=== PATIENT | male | born 1965 | race Caucasian/White ===

== ENCOUNTER 2016-05-28 20:04 | Emergency (ER) | payer MEDICARE, OTHER ==
[~2016-05-28 20:04] MED LIST: /PANT40TA PO; ASPI81CH12 PO; CALC600T21 PO; CARA1TAB2 PO; CLOTCRE3 TOP; DICY10CA13 PO; HYDR-3719 PO; LISI5TAB PO; LISIPOW PO; MIRA3350 PO; MIRT45TA PO; MIRT45TA3 PO; MS C15TA2 PO; MULTTAB4 PO; MULTTAB50 PO; NORCOTAB PO; OMEP40CA2 PO; OXYC-274 PO; OXYC1TAB57 PO; OXYC20TA2 PO; OXYC40TA12 PO; OXYCO5TA PO; OYSCTAB PO; PERC7.5T12 PO; PRIL20TA2 PO; PROT1TAB2 PO; REME45TA PO; SENN8.6T10 PO; SENO8.6T9 PO; SUCR1SS PO; SUCR1SUS PO; SUCR1TA PO; TAB-TAB PO; VALI5TAB PO; VITA10002 PO; VITA100072 PO; VITA1CAP2 PO; VITA200038 PO; VITACAP33 PO; VITMTA PO; WARF-21 PO; WARF-23 PO; XANA0.5T PO; ZINC50TA2 PO; ZOFR20TA PO; ZOFR4TAB3 PO
[2016-05-28] MEDS ORDERED: MORPHINE 2 MG/ML 1ML SYRINGE As Ordered ONE ×2 (20:57→22:03)
[2016-05-28] MEDS ORDERED: ONDANSETRON 4MG/2ML VIAL (J2405) As Ordered ONE (20:57)
[2016-05-28 21:06] LABS: BASO % 0.4 % (0.0-1.0); EOS # 0.1 K/mm3 (0.0-0.50); EOS % 1.1 % (0.0-3.0); LARGE UNSTAINED CELL # 0.1 K/mm3 (0.0-0.4); LARGE UNSTAINED CELL % 1.9 % (0.0-4.0); LYMPH # 1.4 K/mm3 (1.5-4.5); LYMPH % 19.8 % (24.0-44.0); MEAN CORPUSCULAR HEMOGLOBIN 30.8 pg (27.0-33.0); MEAN CORPUSCULAR VOLUME 93.2 fl (80.0-96.0); MONO # 0.4 K/mm3 (0.0-0.8); NEUTROPHILS % 71.9 % (36.0-66.0); PLATELET COUNT, AUTOMATED 318 k/mm3 (150-450); RED CELL DISTRIBUTION WIDTH 13.3 % (11.5-14.5)
--- NOTE | 2016-05-28 21:28 | REP ---
Clinical: Chest pain. Comparison: 09/09/2015. Findings: Mediastinum and cardiac silhouette normal. Lung hernandez are relatively clear without obvious consolidation, effusion, or pneumothorax. There is a very subtle area of opacity at the left lung base which may warrant correlation with auscultation and may reflect early infiltrate. Musculoskeletal structures appear intact. Impression: Cannot exclude very subtle early infiltrate at the left base. Correlation with auscultation may be warranted. Signed by Esdras Cruz MD 05/28/2016 09:20 P
[2016-05-28] MEDS ORDERED: oxyCODONE 5MG TAB As Ordered ONE (23:09)
[2016-05-28] MEDS ORDERED: GASTROGRAFIN SOLUTION 30ML (Q9963) As Ordered ONE (23:15)
[2016-05-28] MEDS ORDERED: ISOVUE-370 76% 100ML VIAL (Q9967) As Ordered ONE (23:52)
[2016-05-28 23:59] LABS: ALBUMIN 2.5 GM/DL (3.2-5.2); ALKALINE PHOSPHATASE 82 U/L (45-117); ALT/SGPT 13 U/L (12-78); ANION GAP 7 MEQ/L (8-16); AST/SGOT 11 U/L (15-37); BILIRUBIN,DIRECT 0.3 MG/DL (0.0-0.2); BILIRUBIN,TOTAL 0.5 MG/DL (0.2-1.0); BLOOD UREA NITROGEN 12 MG/DL (7-18); CALCIUM LEVEL 7.6 MG/DL (8.5-10.1); CARBON DIOXIDE LEVEL 28 MEQ/L (21-32); CHLORIDE LEVEL 106 MEQ/L (98-107); CREATININE FOR GFR 0.56 MG/DL (0.70-1.30); GLOMERULAR FILTRATION RATE > 60.0 (>56); GLUCOSE, FASTING 79 MG/DL (70-105); POTASSIUM SERUM 3.5 MEQ/L (3.5-5.1); SODIUM LEVEL 141 MEQ/L (136-145); TOTAL PROTEIN 6.7 GM/DL (6.4-8.2)
--- NOTE | 2016-05-29 01:20 | REPUSA ---
CLINICAL HISTORY: Pain. TECHNIQUE: Multiple axial CT images were obtained through the thorax with IV contrast material. COMMENTS: Bilateral basilar pulmonary consolidations. Findings are more prominent in the lower lobes. Groundglass densities in the lingula and right middle lobe. There are no pleural effusions. There is no evidence of hilar or mediastinal lymphadenopathy. The hea rt and great vessels are within normal limits. The visualized portions of the liver are of uniform attenuation without mass or defect. There is no i ntra or extrahepatic biliary ductal dilatation. The spleen is unremarkable. The visualized pancreas i s of normal contour and attenuation characteristics. There is no evidence of adrenal mass. The visual ized portions of the kidneys present no abnormalities. The bony structures are free of lytic or blastic lesions. Post contrast images demonstrate no evidence for abnormal enhancement. IMPRESSION: Bilateral multifocal airspace consolidations suggestive of bronchopneumonia. Thank you for your kind referral of this patient.
--- NOTE | 2016-05-29 01:50 | REPUSA ---
CLINICAL HISTORY: Abdominal pain. TECHNIQUE: Multiple axial, sagittal and coronal CT images were obtained through the abdomen and pelvi s after administration of oral and intravenous contrast material. COMMENTS: Changes from prior gastric bypass surgery. Percutaneous gastrostomy tube is in good position. Fluid filled dilated proximal small bowels. The liver is of uniform attenuation without mass or defect. There is no intra or extrahepatic biliary ductal dilatation. The spleen is normal. The gallbladder is surgically absent. The pancreas is of no rmal contour and attenuation characteristics. There is no evidence of adrenal mass. Both kidneys demonstrate prompt and equal nephrograms. The kidneys are normal in size, shape and conf iguration. There is no evidence of renal or ureteral mass. No renal or ureteral calculi are identifie d. There is no hydroureter or hydronephrosis. No evidence for appendicitis. There is no bowel wall thickening. There is no evidence of abdominal a scites or lymphadenopathy. There is no evidence of intrinsic or extrinsic bladder mass. There is no pelvic ascites or lymphadeno analisa. Images of the lung bases show no evidence of pleural or parenchymal mass. There are no pleural effusi ons. Bilateral basilar complex density to the lungs and consolidations. The bony structures are free of lytic or blastic lesions. Multilevel degenerative changes are seen in volving the thoracolumbar spine. Scattered calcifications are seen involving the aorta and major bran ches compatible with atherosclerosis. IMPRESSION: Prior gastric bypass surgery. Fluid-filled mildly dilated proximal small bowels. Probably ileus. No evidence of acute abdominal or pelvic pathology. Thank you for your kind referral of this patient.
[2016-05-29] MEDS ORDERED: AZITHROMYCIN INJ 500MG VIAL (J0456) As Ordered ONE (02:05)
[2016-05-29] MEDS ORDERED: MORPHINE 2 MG/ML 1ML SYRINGE As Ordered ONE (02:05)
[2016-05-29] MEDS ORDERED: oxyCODONE 5MG TAB As Ordered ONE (03:31)
--- NOTE | 2016-05-29 04:26 | EDDOCDS ---
Physician Documentation [facility] Name: Edwar Stokes Age: 51 yrs Sex: Male : 1965 Arrival Date: 05/28/2016 Time: 20:04 Bed OBSERVATION Private MD: Cedric Marrero Disposition: 05/29/16 04:00 Discharged to Home/Self Care. Impression: Pneumonia in diseases classified elsewhere, Noninfective gastroenteritis and colitis, unspecified. - Condition is Stable. - Prescriptions for Zithromax Z- Alfredito 250 mg Oral Tablet - take 1 tablet by ORAL route as directed for 5 days Day 1- take two tablets once. Day 2, 3, 4 , 5 take one tablet once daily.; 6 tablet. - Medication Reconciliation, Local Pharmacy Hours form. - Follow up: Cedric Marrero MD; When: Call to arrange an appointment; Reason: Recheck today's complaints. - Problem is an ongoing problem. - Symptoms have improved. Historical: - Allergies: No known drug Allergies; - Home Meds: 1. Carafate 100 mg/mL Oral susp 10 mL 4 times per day 2. cyanocobalamin (vitamin B-12) 1,000 mcg oral tab every 3 days 3. mirtazapine 45 mg Oral tab 1 tab bedtime 4. multivitamin Oral tab 1 tab daily 5. omeprazole 40 mg Oral cpDR 1 cap 2 times per day 6. oxycodone 20 mg Oral tab 1 tab every 4 hours 7. Oysco-500 500 mg calcium (1,250 mg) oral tab twice a day 8. senna 8.6 mg oral tab 1 tabs twice a day 9. Tab-A-Christian oral tab twice a day 10. vitamin D-3 1000 units daily 11. Xanax 0.5 mg Oral tab daily as needed 12. zinc gluconate 50 mg oral tab daily - PMHx: c diff; chronic abdominal pain; esophageal strictures; GERD; opiate abuse; opiate dependency; - PSHx: Appendectomy; right arm tendon; Gastric Bypass; G-Tube Insertion; back surgery; Hernia repair- Umbilical; Cholecystectomy; - Social history: Smoking status: Patient uses tobacco products, heavy tobacco smoker. No barriers to communication noted, The patient speaks fluent Nepali, Speaks appropriately for age. - Family history: Not pertinent. - : The pt / caregiver states he / she is not on anticoagulants. Home medication list is obtained from the patient. - Exposure Risk Screening:: None identified. Vital Signs: 05/28 20:05 BP 95 / 67; Pulse 85; Resp 16; Temp 97.1(O); Pulse Ox 98% ; Weight 55.34 kg / 122 lbs cmb (M); Height 5 ft. 11 in. (180.34 cm); Pain 10/10; 21:14 BP 92 / 62 (auto/); cf2 21:15 Pulse 68 MON; Pulse Ox 94% ; cf2 21:28 Pulse 68 MON; Pulse Ox 98% ; cf2 21:28 BP 96 / 70 (auto/); cf2 21:41 Pulse 94 MON; Pulse Ox 98% ; cf2 21:43 BP 104 / 58 (auto/); cf2 22:09 BP 99 / 61 (auto/); cf2 22:09 Pulse Ox 97% ; cf2 22:13 Pulse Ox 98% ; cf2 22:13 BP 94 / 64 (auto/); cf2 22:28 Pulse Ox 97% ; cf2 22:28 BP 92 / 65 (auto/); cf2 22:43 Pulse Ox 98% ; cf2 22:43 BP 92 / 62 (auto/); cf2 22:58 Pulse Ox 97% ; cf2 22:58 BP 89 / 63 (auto/); cf2 23:16 Pulse Ox 97% ; cf2 23:16 BP 96 / 66 (auto/); cf2 05/29 00:20 BP 113 / 52 (auto/); cf2 00:22 Pulse Ox 98% ; cf2 02:54 BP 97 / 62 (auto/); cf2 02:54 Pulse 64 MON; Pulse Ox 97% ; cf2 03:20 Pulse 60 MON; Pulse Ox 96% ; cf2 03:20 BP 101 / 70 (auto/); cf2 03:50 BP 94 / 68 (auto/); cf2 03:50 Pulse 60 MON; Pulse Ox 96% ; cf2 05/28 20:05 Body Mass Index 17.02 (55.34 kg, 180.34 cm) cmb MDM: 05/28 20:33 Derivatives Trader/Pulse Ox/q 30 min VS ordered. br1 20:33 IV Saline Lock ordered. br1 20:33 Rhythm Strip to chart ordered. br1 20:33 Undress patient appropriately for examination ordered. br1 20:36 ECG WITH READING ER PHYS+CARDIAG ordered. EDMS 20:36 Basic Metabolic Profile Ordered. EDMS 20:36 CBC with Diff Ordered. EDMS 20:36 Cardiac Injury Profile Ordered. EDMS 20:36 Troponin Ordered. EDMS 20:42 NS 0.9% 500 ml IV at bolus once ordered. br1 20:42 NS 0.9% 1000 ml IV at 150 mL/hr continuous ordered. br1 20:42 morphine 2 mg IVP once ordered. br1 20:43 Ondansetron 4 mg IVP once ordered. br1 20:44 Chest, 1 View Ordered. EDMS 20:45 GASTROINTESTINAL (GI) PANEL Ordered. EDMS 21:18 LIPASE Ordered. EDMS 21:18 LIVER PROFILE Ordered. EDMS 21:55 Recheck B/P ordered. br1 21:56 morphine 2 mg IVP once ordered. br1 22:02 [facility] Payment Agreement was scanned into [employer] and attached to record. jpb 22:06 Financial registration complete. gjb 22:47 CBC with Diff Reviewed. br1 22:47 Chest, 1 View Reviewed. br1 22:59 CT ABD & PELVIS: IV and Oral Contrast Ordered. EDMS 23:04 Repeat EKG (put time details section) ordered. br1 23:04 Redraw CIP &Troponin (put time in details section) ordered. br1 23:05 oxyCODONE 20 mg PO once ordered. br1 23:10 Redraw CIP &Troponin (put time in details section) complete. sew 23:10 Repeat EKG (put time details section) complete. sew 23:11 CARDIAC MARKER PANEL Ordered. EDMS 23:12 ECG WITH READING ER PHYS ordered. EDMS 23:19 CT Chest with contrast Ordered. EDMS 05/29 01:54 Basic Metabolic Profile Reviewed. cs11 01:54 Cardiac Injury Profile Reviewed. cs11 01:54 LIVER PROFILE Reviewed. cs11 01:54 Troponin Reviewed. cs11 01:54 LIPASE Reviewed. cs11 01:54 CT Chest with contrast Reviewed. cs11 01:55 morphine 2 mg IVP once ordered. cs11 01:55 azithromycin 500 mg IVPB once over 1 hrs; dilute in 250mL of D5W or NS ordered. cs11 03:49 CARDIAC MARKER PANEL Reviewed. cs11 03:49 CT ABD & PELVIS: IV and Oral Contrast Reviewed. cs11 03:54 oxyCODONE 20 mg PO once ordered. cf2 Administered Medications: 05/28 21:06 Drug: morphine 2 mg [morphine 2 mg/mL intravenous cartridge (1 mL)] Route: IVP; Site: cf2 left antecubital; 23:52 Follow up: Response: No significant change. cf2 21:06 Drug: Ondansetron 4 mg [ondansetron HCl 2 mg/mL intravenous solution (2 mL)] Route: cf2 IVP; Site: left antecubital; 23:51 Follow up: Response: No significant change. cf2 21:07 Drug: NS 0.9% 500 ml [sodium chloride 0.9 % intravenous solution] Route: IV; Rate: cf2 bolus; Site: left antecubital; 21:07 Drug: NS 0.9% 1000 ml [sodium chloride 0.9 % intravenous solution] Route: IV; Rate: 150 cf2 mL/hr; Site: left antecubital; 22:02 Drug: morphine 2 mg [morphine 2 mg/mL intravenous cartridge (1 mL)] Route: IVP; Site: cf2 left antecubital; 23:51 Follow up: Response: No significant change. cf2 23:10 Drug: oxyCODONE 20 mg [oxycodone 5 mg tablet (4 tabs)] Route: PO; cf2 23:51 Follow up: Response: No significant change. cf2 05/29 02:00 Drug: morphine 2 mg [morphine 2 mg/mL intravenous cartridge (1 mL)] Route: IVP; Site: cf2 left antecubital; 02:00 Drug: azithromycin 500 mg [azithromycin 500 mg intravenous solution] Route: IVPB; cf2 Infused Over: 1 hrs; Site: left antecubital; 03:54 Drug: oxyCODONE 20 mg [oxycodone 5 mg tablet (4 tabs)] Route: PO; cf2 Signatures: Dispatcher [employer] EDMS Juan Pablo Hitchcock MD MD br1 Rniku Jin Sarah sew Schiff, Craig, DO DO cs11 Aris Middleton RN RN jmb Beck, Gabriela gjb Familetti-Gonzalez, ChristinaRN RN cf2 The chart was reviewed and I authenticate all verbal orders and agree with the evaluation and treatment provided.Corrections: (The following items were deleted from the chart) 05/28 20:45 20:44 GASTROINTESTINAL (GI) PANEL+NIESHA ordered. EDMS EDMS 21:16 20:43 LIVER PROFILE+LAB ordered. EDMS EDMS 21:16 20:43 LIPASE+LAB ordered. EDMS EDMS 23:19 22:49 CT Chest without contrast+CT ordered. EDMS EDMS Attachments: 22:02 [facility] Payment Agreement [email or web address]
--- NOTE | 2016-05-29 04:26 | EDDOCDS ---
Nurse's Notes [facility] Name: Edwar Stokes Age: 51 yrs Sex: Male : 1965 Arrival Date: 05/28/2016 Time: 20:04 Bed OBSERVATION Private MD: Cedric Marrero Diagnosis: Pneumonia in diseases classified elsewhere;Noninfective gastroenteritis and colitis, unspecified Presentation: 05/28 20:11 Presenting complaint: Patient states: Patient reports that he has had diarrhea, jmb vomiting for one week. Called Dr. Delarosa in [place] whom told patient to report to ER. Patient reports having feeding tube. Adult Sepsis Screening: The patient does not have new or worsening altered mentation. Patient's respiratory rate is less than 22. Systolic blood pressure is greater than 100. Patient has a qSOFA score of 0- Negative Sepsis Screen. Suicide/Homicide risk assessment- the patient denies having any suicidal and/or homicidal ideations and does not present with any other emotional, behavioral or mental health complaints. Status: Patient is not a supervisor customer services or dependent. Transition of care: patient was not received from another setting of care. 20:11 Acuity: ANA Level 3 jmb 20:11 Method Of Arrival: Walkin/Carried/Asstd jmb 20:13 Presenting complaint: Patient states: Patient reports that pain radiates from stomach jmb to left chest wall and his left arm is numb. Triage Assessment: 20:13 General: Appears in no apparent distress. Pain: Location: abdomen Pain currently is 10 jmb out of 10 on a pain scale. HIV screening NA for this visit Offered previously. Neurological: Level of Consciousness is awake, alert, obeys commands, Oriented to person, place, time, Speech is normal, Facial symmetry appears normal, Facial symmetry: tongue is midline. Respiratory: Airway is patent Respiratory effort is even, unlabored, Respiratory pattern is regular, symmetrical. GI: Abdomen is non- distended. Derm: Skin is pink, warm & dry. Musculoskeletal: Range of motion intact in all extremities. Historical: - Allergies: No known drug Allergies; - Home Meds: 1. Carafate 100 mg/mL Oral susp 10 mL 4 times per day 2. cyanocobalamin (vitamin B-12) 1,000 mcg oral tab every 3 days 3. mirtazapine 45 mg Oral tab 1 tab bedtime 4. multivitamin Oral tab 1 tab daily 5. omeprazole 40 mg Oral cpDR 1 cap 2 times per day 6. oxycodone 20 mg Oral tab 1 tab every 4 hours 7. Oysco-500 500 mg calcium (1,250 mg) oral tab twice a day 8. senna 8.6 mg oral tab 1 tabs twice a day 9. Tab-A-Christian oral tab twice a day 10. vitamin D-3 1000 units daily 11. Xanax 0.5 mg Oral tab daily as needed 12. zinc gluconate 50 mg oral tab daily - PMHx: c diff; chronic abdominal pain; esophageal strictures; GERD; opiate abuse; opiate dependency; - PSHx: Appendectomy; right arm tendon; Gastric Bypass; G-Tube Insertion; back surgery; Hernia repair- Umbilical; Cholecystectomy; - Social history: Smoking status: Patient uses tobacco products, heavy tobacco smoker. No barriers to communication noted, The patient speaks fluent Czech, Speaks appropriately for age. - Family history: Not pertinent. - : The pt / caregiver states he / she is not on anticoagulants. Home medication list is obtained from the patient. - Exposure Risk Screening:: None identified. Screenin:08 Screening information is obtained from the patient. Fall risk: At risk due to gait cf2 disturbance. Assistance ADL's: requires no assistance with activities of daily living. Abuse/DV Screen: The patient / caregiver reports he/she is: not in a situation that causes fear, pain or injury. Nutritional screening: On G-tube feedings. Advance Directives: Further advance directive information is declined. home support is adequate. Assessment: 21:08 Adult Sepsis Screening: The patient does not have new or worsening altered mentation. cf2 Patient's respiratory rate is less than 22. Systolic blood pressure is greater than 100. Patient has a qSOFA score of 0- Negative Sepsis Screen. General: Appears cachectic, emaciated, malnourished, slender, Behavior is appropriate for age, cooperative, Denies fever, feeling ill, fatigue, chills. Pain: Denies pain. Neurological: No deficits noted. EENT: No deficits noted. Cardiovascular: No deficits noted. Respiratory: No deficits noted. GI: PEG tube Bowel sounds present X 4 quads. Abd is soft and non tender X 4 quads. : No deficits noted. Derm: No deficits noted. Musculoskeletal: No deficits noted. Injury Description: No known injury. 05/29 04:23 Reassessment: Patient appears in no apparent distress at this time. Patient states cf2 feeling better. Patient states symptoms have improved. Vital Signs: 05/28 20:05 BP 95 / 67; Pulse 85; Resp 16; Temp 97.1(O); Pulse Ox 98% ; Weight 55.34 kg (M); Height cmb 5 ft. 11 in. (180.34 cm); Pain 10/10; 21:14 BP 92 / 62 (auto/); cf2 21:15 Pulse 68 MON; Pulse Ox 94% ; cf2 21:28 Pulse 68 MON; Pulse Ox 98% ; cf2 21:28 BP 96 / 70 (auto/); cf2 21:41 Pulse 94 MON; Pulse Ox 98% ; cf2 21:43 BP 104 / 58 (auto/); cf2 22:09 BP 99 / 61 (auto/); cf2 22:09 Pulse Ox 97% ; cf2 22:13 Pulse Ox 98% ; cf2 22:13 BP 94 / 64 (auto/); cf2 22:28 Pulse Ox 97% ; cf2 22:28 BP 92 / 65 (auto/); cf2 22:43 Pulse Ox 98% ; cf2 22:43 BP 92 / 62 (auto/); cf2 22:58 Pulse Ox 97% ; cf2 22:58 BP 89 / 63 (auto/); cf2 23:16 Pulse Ox 97% ; cf2 23:16 BP 96 / 66 (auto/); cf2 05/29 00:20 BP 113 / 52 (auto/); cf2 00:22 Pulse Ox 98% ; cf2 02:54 BP 97 / 62 (auto/); cf2 02:54 Pulse 64 MON; Pulse Ox 97% ; cf2 03:20 Pulse 60 MON; Pulse Ox 96% ; cf2 03:20 BP 101 / 70 (auto/); cf2 03:50 BP 94 / 68 (auto/); cf2 03:50 Pulse 60 MON; Pulse Ox 96% ; cf2 05/28 20:05 Body Mass Index 17.02 (55.34 kg, 180.34 cm) cmb Vitals: 05/28 20:05 Log In Time: May 28, 2016 at 20:04. cmb ED Course: 20:05 Patient visited by Emi Garcia. cmb 20:05 Cedric Marrero MD is Private Physician. cmb 20:05 Patient moved to Waiting cmb 20:07 Patient moved to Pre RCE cmb 20:12 Triage Initiated jmb 20:15 Patient moved to PR2 / jmb 20:29 Juan Pablo Hitchcock MD is Attending Physician. br1 20:29 Patient moved to 12 jmb 20:38 Simona Adrian RN is Primary Nurse. cf2 20:38 Patient visited by Simona Adrian,KRISTOFER. cf2 20:41 Patient visited by Juan Pablo Hitchcock MD. br1 20:48 Patient visited by Deborah Salazar PCA. cln 20:48 EKG done. (by ED staff). Reviewed by Juan Pablo Hitchcock MD. cln 21:06 Patient visited by Simona Adrian RN. cf2 21:08 Patient visited by Simona Adrian RN. cf2 21:08 The patient / caregiver is instructed regarding the plan of care and ED course. Patient cf2 has correct armband on for positive identification. Placed in gown. Bed in low position. Call light in reach. Side rails up X 1. Side rails up X2. manager child on. Pulse ox on. NIBP on. Property :Personal belongings accompany Pt. Door closed. Noise minimized. Visitors limited. Lights dimmed. Moved to private room. Verbal reassurance given. Warm blanket given. Pillow given. Head of bed elevated. Diet: Patient is NPO. 21:08 Inserted saline lock: 20 gauge in right antecubital area and blood collected. The cf2 patient tolerated the procedure well. No procedures done that require assistance. 21:18 Patient visited by Ara Villafana, Robot Designer. jlm 21:18 manager child on. Pulse ox on. NIBP on. jlm 21:34 Chest, 1 View Returned. EDMS 21:48 Patient visited by Simona Adrian,KRISTOFER. cf2 21:48 LIVER PROFILE Sent. cf2 21:48 LIPASE Sent. cf2 22:02 [facility] [place] [facility] Payment Agreement was scanned into [employer] and attached to record. jpb 22:26 Patient visited by Simona Adrian RN. cf2 23:07 Attending Physician role handed off by Juan Pablo Hitchcock MD cs11 23:07 Robert Nina DO is Attending Physician. cs11 23:21 Patient visited by Barbara Noble RN. af2 23:21 Labs drawn. (by ED staff). Sent per order to lab. af2 23:41 Patient visited by Ara Villafana, Robot Designer. jlm 23:44 Patient moved to OBSERVATION cs11 05/29 00:24 Patient visited by Simona Adrian RN. cf2 00:26 Patient visited by Simona Adrian RN. cf2 01:33 CT Chest with contrast Returned. EDMS 01:41 Patient visited by Simona Adrian RN. cf2 02:09 CT ABD & PELVIS: IV and Oral Contrast Returned. EDMS 02:42 Patient visited by Bharat Fabian. jp4 02:42 EKG done. (by ED staff). Reviewed by Robert Nina DO. jp4 03:53 Patient visited by Simona Adrian RN. cf2 03:59 Cedric Marrero MD is Referral Physician. cs11 04:23 Patient visited by Simona Adrian RN. cf2 Administered Medications: 05/28 21:06 Drug: morphine 2 mg [morphine 2 mg/mL intravenous cartridge (1 mL)] Route: IVP; Site: cf2 left antecubital; 23:52 Follow up: Response: No significant change. cf2 21:06 Drug: Ondansetron 4 mg [ondansetron HCl 2 mg/mL intravenous solution (2 mL)] Route: cf2 IVP; Site: left antecubital; 23:51 Follow up: Response: No significant change. cf2 21:07 Drug: NS 0.9% 500 ml [sodium chloride 0.9 % intravenous solution] Route: IV; Rate: cf2 bolus; Site: left antecubital; 21:07 Drug: NS 0.9% 1000 ml [sodium chloride 0.9 % intravenous solution] Route: IV; Rate: 150 cf2 mL/hr; Site: left antecubital; 22:02 Drug: morphine 2 mg [morphine 2 mg/mL intravenous cartridge (1 mL)] Route: IVP; Site: cf2 left antecubital; 23:51 Follow up: Response: No significant change. cf2 23:10 Drug: oxyCODONE 20 mg [oxycodone 5 mg tablet (4 tabs)] Route: PO; cf2 23:51 Follow up: Response: No significant change. cf2 05/29 02:00 Drug: morphine 2 mg [morphine 2 mg/mL intravenous cartridge (1 mL)] Route: IVP; Site: cf2 left antecubital; 02:00 Drug: azithromycin 500 mg [azithromycin 500 mg intravenous solution] Route: IVPB; cf2 Infused Over: 1 hrs; Site: left antecubital; 03:54 Drug: oxyCODONE 20 mg [oxycodone 5 mg tablet (4 tabs)] Route: PO; cf2 Order Results: Lab Order: Basic Metabolic Profile; SPEC'M 05/28/16 23:17 Test: GLUCOSE, FASTING; Value: 79; Range: 70-105; Units: MG/DL; Status: F Test: BLOOD UREA NITROGEN; Value: 12; Range: 7-18; Units: MG/DL; Status: F Test: CREATININE FOR GFR; Value: 0.56; Range: 0.70-1.30; Abnormal: Below low normal; Units: MG/DL; Status: F Test: GLOMERULAR FILTRATION RATE; Value: > 60.0; Range: >56; Status: F Test: SODIUM LEVEL; Value: 141; Range: 136-145; Units: MEQ/L; Status: F Test: POTASSIUM SERUM; Value: 3.5; Range: 3.5-5.1; Units: MEQ/L; Status: F Test: CHLORIDE LEVEL; Value: 106; Range: 98-107; Units: MEQ/L; Status: F Test: CARBON DIOXIDE LEVEL; Value: 28; Range: 21-32; Units: MEQ/L; Status: F Test: ANION GAP; Value: 7; Range: 8-16; Abnormal: Below low normal; Units: MEQ/L; Status: F Test: CALCIUM LEVEL; Value: 7.6; Range: 8.5-10.1; Abnormal: Below low normal; Units: MG/DL; Status: F Test Note: ; Units are mL/min/1.73 m2 Chronic Kidney Disease Staging per NKF: Stage I & II GFR >=60 Normal to Mildly Decreased Stage III GFR 30-59 Moderately Decreased Stage IV GFR 15-29 Severely Decreased Stage V GFR <15 Very Little GFR Left ESRD GFR <15 on ADMITTING COUNSELOR Lab Order: CBC with Diff; SPEC'M 05/28/16 20:53 Test: WHITE BLOOD COUNT; Value: 7.0; Range: 4.0-10.0; Units: K/mm3; Status: F Test: RED BLOOD COUNT; Value: 3.57; Range: 4.30-6.10; Abnormal: Below low normal; Units: M/mm3; Status: F Test: HEMOGLOBIN; Value: 11.0; Range: 14.0-18.0; Abnormal: Below low normal; Units: g/dl; Status: F Test: HEMATOCRIT; Value: 33.2; Range: 42.0-52.0; Abnormal: Below low normal; Units: %; Status: F Test: MEAN CORPUSCULAR VOLUME; Value: 93.2; Range: 80.0-96.0; Units: fl; Status: F Test: MEAN CORPUSCULAR HEMOGLOBIN; Value: 30.8; Range: 27.0-33.0; Units: pg; Status: F Test: MEAN CORPUSCULAR HGB CONC; Value: 33.0; Range: 32.0-36.5; Units: g/dl; Status: F Test: RED CELL DISTRIBUTION WIDTH; Value: 13.3; Range: 11.5-14.5; Units: %; Status: F Test: PLATELET COUNT, AUTOMATED; Value: 318; Range: 150-450; Units: k/mm3; Status: F Test: NEUTROPHILS %; Value: 71.9; Range: 36.0-66.0; Abnormal: Above high normal; Units: %; Status: F Test: LYMPH %; Value: 19.8; Range: 24.0-44.0; Abnormal: Below low normal; Units: %; Status: F Test: MONO %; Value: 5.0; Range: 0.0-5.0; Units: %; Status: F Test: EOS %; Value: 1.1; Range: 0.0-3.0; Units: %; Status: F Test: BASO %; Value: 0.4; Range: 0.0-1.0; Units: %; Status: F Test: LARGE UNSTAINED CELL %; Value: 1.9; Range: 0.0-4.0; Units: %; Status: F Test: NEUTROPHILS #; Value: 5.0; Range: 1.8-7.7; Units: K/mm3; Status: F Test: LYMPH #; Value: 1.4; Range: 1.5-4.5; Abnormal: Below low normal; Units: K/mm3; Status: F Test: MONO #; Value: 0.4; Range: 0.0-0.8; Units: K/mm3; Status: F Test: EOS #; Value: 0.1; Range: 0.0-0.50; Units: K/mm3; Status: F Test: BASO #; Value: 0.0; Range: 0.0-0.2; Units: K/mm3; Status: F Test: LARGE UNSTAINED CELL #; Value: 0.1; Range: 0.0-0.4; Units: K/mm3; Status: F Lab Order: Cardiac Injury Profile; SPEC'M 05/28/16 23:17 Test: CPK CREATINE PHOSPHOKINASE; Value: 17; Range: 39-308; Abnormal: Below low normal; Units: U/L; Status: F Test: CK-MB VALUE MASS; Value: 1.0; Range: 0.0-3.6; Units: NG/ML; Status: F Test: MB/CK RELATIVE INDEX; Value: 5.88; Range: < OR =4; Abnormal: Above high normal; Status: F Test Note: ; DIAGNOSIS CRITERIA MMB ng/ml Relative Index (RI) NON-AMI < or = 5 N/A PIPER ZONE > 5 < or = 4 AMI > 5 > 4 Lab Order: Troponin; SPEC'M 05/28/16 23:17 Test: TROPONIN I; Value: < 0.02; Range: < 0.10; Units: NG/ML; Status: F Test Note: ; Troponin I Reference Interval for [employer] LOCI: 99th Percentile= 0.00-0.045 ng/ml Risk Stratification: <= 0.10 ng/ml Decreased Risk for Adverse Clinical Events. 0.10-1.50 ng/ml Increased Risk for Adverse Clinical Events. Evaluation of additional criterion and/or repeat testing in 2-6 hours is suggested to rule out myocardial damage. >= 1.50 ng/ml Indicative of Myocardial Injury. Lab Order: LIPASE; SPEC'M 05/28/16 23:17 Test: LIPASE; Value: 103; Range: 73-393; Units: U/L; Status: F Lab Order: LIVER PROFILE; SPEC'M 05/28/16 23:17 Test: AST/SGOT; Value: 11; Range: 15-37; Abnormal: Below low normal; Units: U/L; Status: F Test: ALT/SGPT; Value: 13; Range: 12-78; Units: U/L; Status: F Test: ALKALINE PHOSPHATASE; Value: 82; Range: 45-117; Units: U/L; Status: F Test: BILIRUBIN,TOTAL; Value: 0.5; Range: 0.2-1.0; Units: MG/DL; Status: F Test: BILIRUBIN,DIRECT; Value: 0.3; Range: 0.0-0.2; Abnormal: Above high normal; Units: MG/DL; Status: F Test: TOTAL PROTEIN; Value: 6.7; Range: 6.4-8.2; Units: GM/DL; Status: F Test: ALBUMIN; Value: 2.5; Range: 3.2-5.2; Abnormal: Below low normal; Units: GM/DL; Status: F Test: ALBUMIN/GLOBULIN RATIO; Value: 0.60; Range: 1.00-1.93; Abnormal: Below low normal; Status: F Lab Order: CARDIAC MARKER PANEL; SPEC'M 05/29/16 02:53 Test: CPK CREATINE PHOSPHOKINASE; Value: 20; Range: 39-308; Abnormal: Below low normal; Units: U/L; Status: F Test: CK-MB VALUE MASS; Value: 1.0; Range: 0.0-3.6; Units: NG/ML; Status: F Test: MB/CK RELATIVE INDEX; Value: 5.00; Range: < OR =4; Abnormal: Above high normal; Status: F Test: TROPONIN I; Value: < 0.02; Range: < 0.10; Units: NG/ML; Status: F Test Note: ; DIAGNOSIS CRITERIA MMB ng/ml Relative Index (RI) NON-AMI < or = 5 N/A PIPER ZONE > 5 < or = 4 AMI > 5 > 4 Radiology Order: Chest, 1 View Test: Chest, 1 View REASON FOR EXAMINATION: Chest Pain; Clinical: Chest pain.; ; Comparison: 09/09/2015.; ; Findings:; Mediastinum and cardiac silhouette normal. Lung hernandez are relatively clear; without obvious consolidation, effusion, or pneumothorax. There is a very subtle; area of opacity at the left lung base which may warrant correlation with; auscultation and may reflect early infiltrate. Musculoskeletal structures appear; intact.; ; Impression:; Cannot exclude very subtle early infiltrate at the left base. Correlation with; auscultation may be warranted.; ; ; Signed by; Esdras Cruz MD 05/28/2016 09:20 P; Radiology Order: CT ABD & PELVIS: IV and Oral Contrast Test: CT ABD & PELVIS: IV and Oral Contrast REASON FOR EXAMINATION: Abdomen Pain; ; CLINICAL HISTORY: Abdominal pain.; TECHNIQUE: Multiple axial, sagittal and coronal CT images were obtained through the abdomen and pelvi; s after administration of oral and intravenous contrast material.; COMMENTS:; Changes from prior gastric bypass surgery.; Percutaneous gastrostomy tube is in good position.; Fluid filled dilated proximal small bowels.; The liver is of uniform attenuation without mass or defect. There is no intra or extrahepatic biliary; ductal dilatation. The spleen is normal. The gallbladder is surgically absent. The pancreas is of no; rmal contour and attenuation characteristics. There is no evidence of adrenal mass.; Both kidneys demonstrate prompt and equal nephrograms. The kidneys are normal in size, shape and conf; iguration. There is no evidence of renal or ureteral mass. No renal or ureteral calculi are identifie; d. There is no hydroureter or hydronephrosis.; No evidence for appendicitis. There is no bowel wall thickening. There is no evidence of abdominal a; scites or lymphadenopathy.; There is no evidence of intrinsic or extrinsic bladder mass. There is no pelvic ascites or lymphadeno; analisa.; Images of the lung bases show no evidence of pleural or parenchymal mass. There are no pleural effusi; ons. Bilateral basilar complex density to the lungs and consolidations.; The bony structures are free of lytic or blastic lesions. Multilevel degenerative changes are seen in; volving the thoracolumbar spine. Scattered calcifications are seen involving the aorta and major bran; ches compatible with atherosclerosis.; IMPRESSION:; Prior gastric bypass surgery.; Fluid-filled mildly dilated proximal small bowels. Probably ileus.; No evidence of acute abdominal or pelvic pathology.; Thank you for your kind referral of this patient.; ; Radiology Order: CT Chest with contrast Test: CT Chest with contrast REASON FOR EXAMINATION: Chest Pain; ; CLINICAL HISTORY: Pain.; TECHNIQUE: Multiple axial CT images were obtained through the thorax with IV contrast material.; COMMENTS:; Bilateral basilar pulmonary consolidations.; Findings are more prominent in the lower lobes. Groundglass densities in the lingula and right middle; lobe.; There are no pleural effusions. There is no evidence of hilar or mediastinal lymphadenopathy. The hea; rt and great vessels are within normal limits.; The visualized portions of the liver are of uniform attenuation without mass or defect. There is no i; ntra or extrahepatic biliary ductal dilatation. The spleen is unremarkable. The visualized pancreas i; s of normal contour and attenuation characteristics. There is no evidence of adrenal mass. The visual; ized portions of the kidneys present no abnormalities.; The bony structures are free of lytic or blastic lesions.; Post contrast images demonstrate no evidence for abnormal enhancement.; IMPRESSION:; Bilateral multifocal airspace consolidations suggestive of bronchopneumonia.; Thank you for your kind referral of this patient.; ; Outcome: 04:00 [facility] 04:24 The following High Risk Discharge criteria are identified: None. Discharged to home cf2 ambulatory, in taxi. Condition: stable Condition: improved. Discharge instructions given to patient, Instructed on discharge instructions, follow up and referral plans. medication usage, Demonstrated understanding of instructions, medications, Prescriptions given X 1. CT Study completed. 04:25 Discharge Assessment: Patient awake, alert and oriented x 3. No cognitive and/or cf2 functional deficits noted. Patient verbalized understanding of disposition instructions. Patient awake and alert. Oriented to person, place and time. patient administered narcotics - yes. 04:25 Patient left the ED. cf2 Signatures: Dispatcher [employer] EDMS Juan Pablo Hitchcock MD MD br1 Rinku Jin Chelsea cmRobert Alarcon, DO cs11 Aris Middleton,RN RN brauliob Bharat Fabian jp4 Ara Villafana, Robot Designer Unit abrahamm Barbara Noble,RN RN af2 Marie, Deborah, SOURCING ASSOCIATE SOURCING ASSOCIATE cln Simona Adrian,RN RN cf2 MTDD
--- NOTE | 2016-05-29 11:32 | ECGEPIP ---
Stationary ECG Study [facility] - ED Test Date: 2016-05-28 Pat Name: GRAHAM COLEMAN Department: Room: - Gender: M Licensed Clinician: florin : 1965 Requested By: BERE APARICIO Order Number: [id number] Reading MD: Kathryn Berg Measurements Intervals [place] Rate: 75 P: 81 TX: 192 QRS: -7 QRSD: 112 T: 59 QT: 375 QTc: 419 Interpretive Statements SINUS RHYTHM LOW QRS VOLTAGE IN EXTREMITY LEADS INTRAVENTRICULAR CONDUCTION DELAY SIMILAR 02/23/16 Electronically Signed On 05-29-2016 11:31:57 EST by Kathryn Berg
--- NOTE | 2016-05-29 12:07 | ECGEPIP ---
Stationary ECG Study [facility] - ED Test Date: 2016-05-29 Pat Name: GRAHAM COLEMAN Department: Room: - Gender: M Reverberatory Skimmer: giselle : 1965 Requested By: BERE APARICIO Order Number: [id number] Reading MD: Kathryn Berg Measurements Intervals [place] Rate: 62 P: 69 [place]: 199 QRS: -14 QRSD: 94 T: 58 QT: 399 QTc: 405 Interpretive Statements SINUS RHYTHM LOW VOLTAGE LIMB DECREASED RATE 05/28/16 Electronically Signed On 05-29-2016 12:06:37 EST by Kathryn Berg
--- NOTE | 2016-05-31 05:26 | EDDOCDS ---
Physician Documentation [facility] Name: Edwar Stokes Age: 51 yrs Sex: Male : 1965 Arrival Date: 05/28/2016 Time: 20:04 Bed OBSERVATION Private MD: Cedric Marrero Disposition: 05/29/16 04:00 Discharged to Home/Self Care. Impression: Pneumonia in diseases classified elsewhere, Noninfective gastroenteritis and colitis, unspecified. - Condition is Stable. - Prescriptions for Zithromax Z- Alfredito 250 mg Oral Tablet - take 1 tablet by ORAL route as directed for 5 days Day 1- take two tablets once. Day 2, 3, 4 , 5 take one tablet once daily.; 6 tablet. - Medication Reconciliation, Local Pharmacy Hours form. - Follow up: Cedric Marrero MD; When: Call to arrange an appointment; Reason: Recheck today's complaints. - Problem is an ongoing problem. - Symptoms have improved. Historical: - Allergies: No known drug Allergies; - Home Meds: 1. Carafate 100 mg/mL Oral susp 10 mL 4 times per day 2. cyanocobalamin (vitamin B-12) 1,000 mcg oral tab every 3 days 3. mirtazapine 45 mg Oral tab 1 tab bedtime 4. multivitamin Oral tab 1 tab daily 5. omeprazole 40 mg Oral cpDR 1 cap 2 times per day 6. oxycodone 20 mg Oral tab 1 tab every 4 hours 7. Oysco-500 500 mg calcium (1,250 mg) oral tab twice a day 8. senna 8.6 mg oral tab 1 tabs twice a day 9. Tab-A-Christian oral tab twice a day 10. vitamin D-3 1000 units daily 11. Xanax 0.5 mg Oral tab daily as needed 12. zinc gluconate 50 mg oral tab daily - PMHx: c diff; chronic abdominal pain; esophageal strictures; GERD; opiate abuse; opiate dependency; - PSHx: Appendectomy; right arm tendon; Gastric Bypass; G-Tube Insertion; back surgery; Hernia repair- Umbilical; Cholecystectomy; - Social history: Smoking status: Patient uses tobacco products, heavy tobacco smoker. No barriers to communication noted, The patient speaks fluent Nepali, Speaks appropriately for age. - Family history: Not pertinent. - : The pt / caregiver states he / she is not on anticoagulants. Home medication list is obtained from the patient. - Exposure Risk Screening:: None identified. Vital Signs: 05/28 20:05 BP 95 / 67; Pulse 85; Resp 16; Temp 97.1(O); Pulse Ox 98% ; Weight 55.34 kg / 122 lbs cmb (M); Height 5 ft. 11 in. (180.34 cm); Pain 10/10; 21:14 BP 92 / 62 (auto/); cf2 21:15 Pulse 68 MON; Pulse Ox 94% ; cf2 21:28 Pulse 68 MON; Pulse Ox 98% ; cf2 21:28 BP 96 / 70 (auto/); cf2 21:41 Pulse 94 MON; Pulse Ox 98% ; cf2 21:43 BP 104 / 58 (auto/); cf2 22:09 BP 99 / 61 (auto/); cf2 22:09 Pulse Ox 97% ; cf2 22:13 Pulse Ox 98% ; cf2 22:13 BP 94 / 64 (auto/); cf2 22:28 Pulse Ox 97% ; cf2 22:28 BP 92 / 65 (auto/); cf2 22:43 Pulse Ox 98% ; cf2 22:43 BP 92 / 62 (auto/); cf2 22:58 Pulse Ox 97% ; cf2 22:58 BP 89 / 63 (auto/); cf2 23:16 Pulse Ox 97% ; cf2 23:16 BP 96 / 66 (auto/); cf2 05/29 00:20 BP 113 / 52 (auto/); cf2 00:22 Pulse Ox 98% ; cf2 02:54 BP 97 / 62 (auto/); cf2 02:54 Pulse 64 MON; Pulse Ox 97% ; cf2 03:20 Pulse 60 MON; Pulse Ox 96% ; cf2 03:20 BP 101 / 70 (auto/); cf2 03:50 BP 94 / 68 (auto/); cf2 03:50 Pulse 60 MON; Pulse Ox 96% ; cf2 05/28 20:05 Body Mass Index 17.02 (55.34 kg, 180.34 cm) cmb MDM: 05/28 20:33 [employer]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 br1 20:33 IV Saline Lock ordered. br1 20:33 Rhythm Strip to chart ordered. br1 20:33 Undress patient appropriately for examination ordered. br1 20:36 ECG WITH READING ER PHYS+CARDIAG ordered. EDMS 20:36 Basic Metabolic Profile Ordered. EDMS 20:36 CBC with Diff Ordered. EDMS 20:36 Cardiac Injury Profile Ordered. EDMS 20:36 Troponin Ordered. EDMS 20:42 NS 0.9% 500 ml IV at bolus once ordered. br1 20:42 NS 0.9% 1000 ml IV at 150 mL/hr continuous ordered. br1 20:42 morphine 2 mg IVP once ordered. br1 20:43 Ondansetron 4 mg IVP once ordered. br1 20:44 Chest, 1 View Ordered. EDMS 20:45 GASTROINTESTINAL (GI) PANEL Ordered. EDMS 21:18 LIPASE Ordered. EDMS 21:18 LIVER PROFILE Ordered. EDMS 21:55 Recheck B/P ordered. br1 21:56 morphine 2 mg IVP once ordered. br1 22:02 [facility] Payment Agreement was scanned into [employer] and attached to record. jpb 22:06 Financial registration complete. gjb 22:47 CBC with Diff Reviewed. br1 22:47 Chest, 1 View Reviewed. br1 22:59 CT ABD & PELVIS: IV and Oral Contrast Ordered. EDMS 23:04 Repeat EKG (put time details section) ordered. br1 23:04 Redraw CIP &Troponin (put time in details section) ordered. br1 23:05 oxyCODONE 20 mg PO once ordered. br1 23:10 Redraw CIP &Troponin (put time in details section) complete. sew 23:10 Repeat EKG (put time details section) complete. sew 23:11 CARDIAC MARKER PANEL Ordered. EDMS 23:12 ECG WITH READING ER PHYS ordered. EDMS 23:19 CT Chest with contrast Ordered. EDMS 05/29 01:54 Basic Metabolic Profile Reviewed. cs11 01:54 Cardiac Injury Profile Reviewed. cs11 01:54 LIVER PROFILE Reviewed. cs11 01:54 Troponin Reviewed. cs11 01:54 LIPASE Reviewed. cs11 01:54 CT Chest with contrast Reviewed. cs11 01:55 morphine 2 mg IVP once ordered. cs11 01:55 azithromycin 500 mg IVPB once over 1 hrs; dilute in 250mL of D5W or NS ordered. cs11 03:49 CARDIAC MARKER PANEL Reviewed. cs11 03:49 CT ABD & PELVIS: IV and Oral Contrast Reviewed. cs11 03:54 oxyCODONE 20 mg PO once ordered. cf2 05/30 08:48 T-Sheet-- Draft Copy was scanned into [employer] and attached to record. gb Administered Medications: 05/28 21:06 Drug: morphine 2 mg [morphine 2 mg/mL intravenous cartridge (1 mL)] Route: IVP; Site: cf2 left antecubital; 23:52 Follow up: Response: No significant change. cf2 21:06 Drug: Ondansetron 4 mg [ondansetron HCl 2 mg/mL intravenous solution (2 mL)] Route: cf2 IVP; Site: left antecubital; 23:51 Follow up: Response: No significant change. cf2 21:07 Drug: NS 0.9% 500 ml [sodium chloride 0.9 % intravenous solution] Route: IV; Rate: cf2 bolus; Site: left antecubital; 21:07 Drug: NS 0.9% 1000 ml [sodium chloride 0.9 % intravenous solution] Route: IV; Rate: 150 cf2 mL/hr; Site: left antecubital; 22:02 Drug: morphine 2 mg [morphine 2 mg/mL intravenous cartridge (1 mL)] Route: IVP; Site: cf2 left antecubital; 23:51 Follow up: Response: No significant change. cf2 23:10 Drug: oxyCODONE 20 mg [oxycodone 5 mg tablet (4 tabs)] Route: PO; cf2 23:51 Follow up: Response: No significant change. cf2 05/29 02:00 Drug: morphine 2 mg [morphine 2 mg/mL intravenous cartridge (1 mL)] Route: IVP; Site: cf2 left antecubital; 02:00 Drug: azithromycin 500 mg [azithromycin 500 mg intravenous solution] Route: IVPB; cf2 Infused Over: 1 hrs; Site: left antecubital; 03:54 Drug: oxyCODONE 20 mg [oxycodone 5 mg tablet (4 tabs)] Route: PO; cf2 Signatures: Dispatcher [employer] EDMS Anika Ayala, Reg Reg gb Juan Pablo Hitchcock MD MD br1 Rinku Jin Sarah sew Schiff, Craig, DO DO cs11 Aris Middleton RN RN Amara Vegas ChristinaRN RN cf2 The chart was reviewed and I authenticate all verbal orders and agree with the evaluation and treatment provided.Corrections: (The following items were deleted from the chart) 05/28 20:45 20:44 GASTROINTESTINAL (GI) PANEL+NIESHA ordered. EDMS EDMS 21:16 20:43 LIVER PROFILE+LAB ordered. EDMS EDMS 21:16 20:43 LIPASE+LAB ordered. EDMS EDMS 23:19 22:49 CT Chest without contrast+CT ordered. EDMS EDMS Attachments: 22:02 [facility] Payment Agreement jpb 05/30 08:48 T-Sheet-- Draft Copy gb Chart Complete MTDD
--- NOTE | 2016-05-31 05:27 | EDDOCDS ---
Nurse's Notes [facility] Name: Edwar Stokes Age: 51 yrs Sex: Male : 1965 Arrival Date: 05/28/2016 Time: 20:04 Bed OBSERVATION Private MD: Cedric Marrero Diagnosis: Pneumonia in diseases classified elsewhere;Noninfective gastroenteritis and colitis, unspecified Presentation: 05/28 20:11 Presenting complaint: Patient states: Patient reports that he has had diarrhea, jmb vomiting for one week. Called Dr. Delarosa in [place] whom told patient to report to ER. Patient reports having feeding tube. Adult Sepsis Screening: The patient does not have new or worsening altered mentation. Patient's respiratory rate is less than 22. Systolic blood pressure is greater than 100. Patient has a qSOFA score of 0- Negative Sepsis Screen. Suicide/Homicide risk assessment- the patient denies having any suicidal and/or homicidal ideations and does not present with any other emotional, behavioral or mental health complaints. Status: Patient is not a accounting advisory services manager or dependent. Transition of care: patient was not received from another setting of care. 20:11 Acuity: ANA Level 3 jmb 20:11 Method Of Arrival: Walkin/Carried/Asstd jmb 20:13 Presenting complaint: Patient states: Patient reports that pain radiates from stomach jmb to left chest wall and his left arm is numb. Triage Assessment: 20:13 General: Appears in no apparent distress. Pain: Location: abdomen Pain currently is 10 jmb out of 10 on a pain scale. HIV screening NA for this visit Offered previously. Neurological: Level of Consciousness is awake, alert, obeys commands, Oriented to person, place, time, Speech is normal, Facial symmetry appears normal, Facial symmetry: tongue is midline. Respiratory: Airway is patent Respiratory effort is even, unlabored, Respiratory pattern is regular, symmetrical. GI: Abdomen is non- distended. Derm: Skin is pink, warm & dry. Musculoskeletal: Range of motion intact in all extremities. Historical: - Allergies: No known drug Allergies; - Home Meds: 1. Carafate 100 mg/mL Oral susp 10 mL 4 times per day 2. cyanocobalamin (vitamin B-12) 1,000 mcg oral tab every 3 days 3. mirtazapine 45 mg Oral tab 1 tab bedtime 4. multivitamin Oral tab 1 tab daily 5. omeprazole 40 mg Oral cpDR 1 cap 2 times per day 6. oxycodone 20 mg Oral tab 1 tab every 4 hours 7. Oysco-500 500 mg calcium (1,250 mg) oral tab twice a day 8. senna 8.6 mg oral tab 1 tabs twice a day 9. Tab-A-Christian oral tab twice a day 10. vitamin D-3 1000 units daily 11. Xanax 0.5 mg Oral tab daily as needed 12. zinc gluconate 50 mg oral tab daily - PMHx: c diff; chronic abdominal pain; esophageal strictures; GERD; opiate abuse; opiate dependency; - PSHx: Appendectomy; right arm tendon; Gastric Bypass; G-Tube Insertion; back surgery; Hernia repair- Umbilical; Cholecystectomy; - Social history: Smoking status: Patient uses tobacco products, heavy tobacco smoker. No barriers to communication noted, The patient speaks fluent Maltese, Speaks appropriately for age. - Family history: Not pertinent. - : The pt / caregiver states he / she is not on anticoagulants. Home medication list is obtained from the patient. - Exposure Risk Screening:: None identified. Screenin:08 Screening information is obtained from the patient. Fall risk: At risk due to gait cf2 disturbance. Assistance ADL's: requires no assistance with activities of daily living. Abuse/DV Screen: The patient / caregiver reports he/she is: not in a situation that causes fear, pain or injury. Nutritional screening: On G-tube feedings. Advance Directives: Further advance directive information is declined. home support is adequate. Assessment: 21:08 Adult Sepsis Screening: The patient does not have new or worsening altered mentation. cf2 Patient's respiratory rate is less than 22. Systolic blood pressure is greater than 100. Patient has a qSOFA score of 0- Negative Sepsis Screen. General: Appears cachectic, emaciated, malnourished, slender, Behavior is appropriate for age, cooperative, Denies fever, feeling ill, fatigue, chills. Pain: Denies pain. Neurological: No deficits noted. EENT: No deficits noted. Cardiovascular: No deficits noted. Respiratory: No deficits noted. GI: PEG tube Bowel sounds present X 4 quads. Abd is soft and non tender X 4 quads. : No deficits noted. Derm: No deficits noted. Musculoskeletal: No deficits noted. Injury Description: No known injury. 05/29 04:23 Reassessment: Patient appears in no apparent distress at this time. Patient states cf2 feeling better. Patient states symptoms have improved. Vital Signs: 05/28 20:05 BP 95 / 67; Pulse 85; Resp 16; Temp 97.1(O); Pulse Ox 98% ; Weight 55.34 kg (M); Height cmb 5 ft. 11 in. (180.34 cm); Pain 10/10; 21:14 BP 92 / 62 (auto/); cf2 21:15 Pulse 68 MON; Pulse Ox 94% ; cf2 21:28 Pulse 68 MON; Pulse Ox 98% ; cf2 21:28 BP 96 / 70 (auto/); cf2 21:41 Pulse 94 MON; Pulse Ox 98% ; cf2 21:43 BP 104 / 58 (auto/); cf2 22:09 BP 99 / 61 (auto/); cf2 22:09 Pulse Ox 97% ; cf2 22:13 Pulse Ox 98% ; cf2 22:13 BP 94 / 64 (auto/); cf2 22:28 Pulse Ox 97% ; cf2 22:28 BP 92 / 65 (auto/); cf2 22:43 Pulse Ox 98% ; cf2 22:43 BP 92 / 62 (auto/); cf2 22:58 Pulse Ox 97% ; cf2 22:58 BP 89 / 63 (auto/); cf2 23:16 Pulse Ox 97% ; cf2 23:16 BP 96 / 66 (auto/); cf2 05/29 00:20 BP 113 / 52 (auto/); cf2 00:22 Pulse Ox 98% ; cf2 02:54 BP 97 / 62 (auto/); cf2 02:54 Pulse 64 MON; Pulse Ox 97% ; cf2 03:20 Pulse 60 MON; Pulse Ox 96% ; cf2 03:20 BP 101 / 70 (auto/); cf2 03:50 BP 94 / 68 (auto/); cf2 03:50 Pulse 60 MON; Pulse Ox 96% ; cf2 05/28 20:05 Body Mass Index 17.02 (55.34 kg, 180.34 cm) cmb Vitals: 05/28 20:05 Log In Time: May 28, 2016 at 20:04. cmb ED Course: 20:05 Patient visited by Emi Garcia. cmb 20:05 Cedric Marrero MD is Private Physician. cmb 20:05 Patient moved to Waiting cmb 20:07 Patient moved to Pre RCE cmb 20:12 Triage Initiated jmb 20:15 Patient moved to PR2 / jmb 20:29 Juan Pablo Hitchcock MD is Attending Physician. br1 20:29 Patient moved to 12 jmb 20:38 Simona Adrian RN is Primary Nurse. cf2 20:38 Patient visited by Simona Adrian,KRISTOFER. cf2 20:41 Patient visited by Juan Pablo Hitchcock MD. br1 20:48 Patient visited by Deborah Salazar PCA. cln 20:48 EKG done. (by ED staff). Reviewed by Juan Pablo Hitchcock MD. cln 21:06 Patient visited by Simona Adrian RN. cf2 21:08 Patient visited by Simona Adrian RN. cf2 21:08 The patient / caregiver is instructed regarding the plan of care and ED course. Patient cf2 has correct armband on for positive identification. Placed in gown. Bed in low position. Call light in reach. Side rails up X 1. Side rails up X2. scale balancer on. Pulse ox on. NIBP on. Property :Personal belongings accompany Pt. Door closed. Noise minimized. Visitors limited. Lights dimmed. Moved to private room. Verbal reassurance given. Warm blanket given. Pillow given. Head of bed elevated. Diet: Patient is NPO. 21:08 Inserted saline lock: 20 gauge in right antecubital area and blood collected. The cf2 patient tolerated the procedure well. No procedures done that require assistance. 21:18 Patient visited by Ara Villafana, Expediter Clerk. jlm 21:18 scale balancer on. Pulse ox on. NIBP on. jlm 21:34 Chest, 1 View Returned. EDMS 21:48 Patient visited by Simona Adrian,KRISTOFER. cf2 21:48 LIVER PROFILE Sent. cf2 21:48 LIPASE Sent. cf2 22:02 [facility] [place] Payment Agreement was scanned into [employer] and attached to record. jpb 22:26 Patient visited by Simona Adrian RN. cf2 23:07 Attending Physician role handed off by Juan Pablo Hitchcock MD cs11 23:07 Bere Aparicio DO is Attending Physician. cs11 23:21 Patient visited by Barbara Noble RN. af2 23:21 Labs drawn. (by ED staff). Sent per order to lab. af2 23:41 Patient visited by Ara Villafana, Expediter Clerk. jlm 23:44 Patient moved to OBSERVATION cs11 05/29 00:24 Patient visited by Simona Adrian RN. cf2 00:26 Patient visited by Simona Adrian RN. cf2 01:33 CT Chest with contrast Returned. EDMS 01:41 Patient visited by Simoan Adrian RN. cf2 02:09 CT ABD & PELVIS: IV and Oral Contrast Returned. EDMS 02:42 Patient visited by Bharat Fabian. jp4 02:42 EKG done. (by ED staff). Reviewed by Bere Aparicio DO. jp4 03:53 Patient visited by Simona Adrian RN. cf2 03:59 Cedric Marrero MD is Referral Physician. cs11 04:23 Patient visited by Simona Adrian RN. cf2 11:47 EKG-ADULT Returned. EDMS 12:30 ECG WITH READING ER PHYS Returned. EDMS 01 08:48 T-Sheet-- Draft Copy was scanned into [employer] and attached to record. gb Administered Medications: 05/28 21:06 Drug: morphine 2 mg [morphine 2 mg/mL intravenous cartridge (1 mL)] Route: IVP; Site: cf2 left antecubital; 23:52 Follow up: Response: No significant change. cf2 21:06 Drug: Ondansetron 4 mg [ondansetron HCl 2 mg/mL intravenous solution (2 mL)] Route: cf2 IVP; Site: left antecubital; 23:51 Follow up: Response: No significant change. cf2 21:07 Drug: NS 0.9% 500 ml [sodium chloride 0.9 % intravenous solution] Route: IV; Rate: cf2 bolus; Site: left antecubital; 21:07 Drug: NS 0.9% 1000 ml [sodium chloride 0.9 % intravenous solution] Route: IV; Rate: 150 cf2 mL/hr; Site: left antecubital; 22:02 Drug: morphine 2 mg [morphine 2 mg/mL intravenous cartridge (1 mL)] Route: IVP; Site: cf2 left antecubital; 23:51 Follow up: Response: No significant change. cf2 23:10 Drug: oxyCODONE 20 mg [oxycodone 5 mg tablet (4 tabs)] Route: PO; cf2 23:51 Follow up: Response: No significant change. cf2 05/29 02:00 Drug: morphine 2 mg [morphine 2 mg/mL intravenous cartridge (1 mL)] Route: IVP; Site: cf2 left antecubital; 02:00 Drug: azithromycin 500 mg [azithromycin 500 mg intravenous solution] Route: IVPB; cf2 Infused Over: 1 hrs; Site: left antecubital; 03:54 Drug: oxyCODONE 20 mg [oxycodone 5 mg tablet (4 tabs)] Route: PO; cf2 Order Results: Lab Order: Basic Metabolic Profile; SPEC'M 05/28/16 23:17 Test: GLUCOSE, FASTING; Value: 79; Range: 70-105; Units: MG/DL; Status: F Test: BLOOD UREA NITROGEN; Value: 12; Range: 7-18; Units: MG/DL; Status: F Test: CREATININE FOR GFR; Value: 0.56; Range: 0.70-1.30; Abnormal: Below low normal; Units: MG/DL; Status: F Test: GLOMERULAR FILTRATION RATE; Value: > 60.0; Range: >56; Status: F Test: SODIUM LEVEL; Value: 141; Range: 136-145; Units: MEQ/L; Status: F Test: POTASSIUM SERUM; Value: 3.5; Range: 3.5-5.1; Units: MEQ/L; Status: F Test: CHLORIDE LEVEL; Value: 106; Range: 98-107; Units: MEQ/L; Status: F Test: CARBON DIOXIDE LEVEL; Value: 28; Range: 21-32; Units: MEQ/L; Status: F Test: ANION GAP; Value: 7; Range: 8-16; Abnormal: Below low normal; Units: MEQ/L; Status: F Test: CALCIUM LEVEL; Value: 7.6; Range: 8.5-10.1; Abnormal: Below low normal; Units: MG/DL; Status: F Test Note: ; Units are mL/min/1.73 m2 Chronic Kidney Disease Staging per NKF: Stage I & II GFR >=60 Normal to Mildly Decreased Stage III GFR 30-59 Moderately Decreased Stage IV GFR 15-29 Severely Decreased Stage V GFR <15 Very Little GFR Left ESRD GFR <15 on GAS SHOVEL OPERATOR Lab Order: CBC with Diff; SPEC'M 05/28/16 20:53 Test: WHITE BLOOD COUNT; Value: 7.0; Range: 4.0-10.0; Units: K/mm3; Status: F Test: RED BLOOD COUNT; Value: 3.57; Range: 4.30-6.10; Abnormal: Below low normal; Units: M/mm3; Status: F Test: HEMOGLOBIN; Value: 11.0; Range: 14.0-18.0; Abnormal: Below low normal; Units: g/dl; Status: F Test: HEMATOCRIT; Value: 33.2; Range: 42.0-52.0; Abnormal: Below low normal; Units: %; Status: F Test: MEAN CORPUSCULAR VOLUME; Value: 93.2; Range: 80.0-96.0; Units: fl; Status: F Test: MEAN CORPUSCULAR HEMOGLOBIN; Value: 30.8; Range: 27.0-33.0; Units: pg; Status: F Test: MEAN CORPUSCULAR HGB CONC; Value: 33.0; Range: 32.0-36.5; Units: g/dl; Status: F Test: RED CELL DISTRIBUTION WIDTH; Value: 13.3; Range: 11.5-14.5; Units: %; Status: F Test: PLATELET COUNT, AUTOMATED; Value: 318; Range: 150-450; Units: k/mm3; Status: F Test: NEUTROPHILS %; Value: 71.9; Range: 36.0-66.0; Abnormal: Above high normal; Units: %; Status: F Test: LYMPH %; Value: 19.8; Range: 24.0-44.0; Abnormal: Below low normal; Units: %; Status: F Test: MONO %; Value: 5.0; Range: 0.0-5.0; Units: %; Status: F Test: EOS %; Value: 1.1; Range: 0.0-3.0; Units: %; Status: F Test: BASO %; Value: 0.4; Range: 0.0-1.0; Units: %; Status: F Test: LARGE UNSTAINED CELL %; Value: 1.9; Range: 0.0-4.0; Units: %; Status: F Test: NEUTROPHILS #; Value: 5.0; Range: 1.8-7.7; Units: K/mm3; Status: F Test: LYMPH #; Value: 1.4; Range: 1.5-4.5; Abnormal: Below low normal; Units: K/mm3; Status: F Test: MONO #; Value: 0.4; Range: 0.0-0.8; Units: K/mm3; Status: F Test: EOS #; Value: 0.1; Range: 0.0-0.50; Units: K/mm3; Status: F Test: BASO #; Value: 0.0; Range: 0.0-0.2; Units: K/mm3; Status: F Test: LARGE UNSTAINED CELL #; Value: 0.1; Range: 0.0-0.4; Units: K/mm3; Status: F Lab Order: Cardiac Injury Profile; SPEC'M 05/28/16 23:17 Test: CPK CREATINE PHOSPHOKINASE; Value: 17; Range: 39-308; Abnormal: Below low normal; Units: U/L; Status: F Test: CK-MB VALUE MASS; Value: 1.0; Range: 0.0-3.6; Units: NG/ML; Status: F Test: MB/CK RELATIVE INDEX; Value: 5.88; Range: < OR =4; Abnormal: Above high normal; Status: F Test Note: ; DIAGNOSIS CRITERIA MMB ng/ml Relative Index (RI) NON-AMI < or = 5 N/A PIPER ZONE > 5 < or = 4 AMI > 5 > 4 Lab Order: Troponin; SPEC'M 05/28/16 23:17 Test: TROPONIN I; Value: < 0.02; Range: < 0.10; Units: NG/ML; Status: F Test Note: ; Troponin I Reference Interval for [employer] LOCI: 99th Percentile= 0.00-0.045 ng/ml Risk Stratification: <= 0.10 ng/ml Decreased Risk for Adverse Clinical Events. 0.10-1.50 ng/ml Increased Risk for Adverse Clinical Events. Evaluation of additional criterion and/or repeat testing in 2-6 hours is suggested to rule out myocardial damage. >= 1.50 ng/ml Indicative of Myocardial Injury. Lab Order: LIPASE; SPEC'M 05/28/16 23:17 Test: LIPASE; Value: 103; Range: 73-393; Units: U/L; Status: F Lab Order: LIVER PROFILE; SPEC'M 05/28/16 23:17 Test: AST/SGOT; Value: 11; Range: 15-37; Abnormal: Below low normal; Units: U/L; Status: F Test: ALT/SGPT; Value: 13; Range: 12-78; Units: U/L; Status: F Test: ALKALINE PHOSPHATASE; Value: 82; Range: 45-117; Units: U/L; Status: F Test: BILIRUBIN,TOTAL; Value: 0.5; Range: 0.2-1.0; Units: MG/DL; Status: F Test: BILIRUBIN,DIRECT; Value: 0.3; Range: 0.0-0.2; Abnormal: Above high normal; Units: MG/DL; Status: F Test: TOTAL PROTEIN; Value: 6.7; Range: 6.4-8.2; Units: GM/DL; Status: F Test: ALBUMIN; Value: 2.5; Range: 3.2-5.2; Abnormal: Below low normal; Units: GM/DL; Status: F Test: ALBUMIN/GLOBULIN RATIO; Value: 0.60; Range: 1.00-1.93; Abnormal: Below low normal; Status: F Lab Order: CARDIAC MARKER PANEL; SPEC' 05/29/16 02:53 Test: CPK CREATINE PHOSPHOKINASE; Value: 20; Range: 39-308; Abnormal: Below low normal; Units: U/L; Status: F Test: CK-MB VALUE MASS; Value: 1.0; Range: 0.0-3.6; Units: NG/ML; Status: F Test: MB/CK RELATIVE INDEX; Value: 5.00; Range: < OR =4; Abnormal: Above high normal; Status: F Test: TROPONIN I; Value: < 0.02; Range: < 0.10; Units: NG/ML; Status: F Test Note: ; DIAGNOSIS CRITERIA MMB ng/ml Relative Index (RI) NON-AMI < or = 5 N/A PIPER ZONE > 5 < or = 4 AMI > 5 > 4 Radiology Order: EKG-ADULT Test: EKG-ADULT REASON FOR EXAMINATION: Chest Pain; Stationary ECG Study; [facility] - ED; ; Test Date: 2016-05-28; Pat Name: EDWAR STOKES Department:; Room: -; Gender: M Hearing And Speech Assistant: cn; : 1965 Requested By: BERE APARICIO; Order Number: [id number] Reading MD: Kathryn Berg; Measurements; Intervals [place]; Rate: 75 P: 81; MT: 192 QRS: -7; QRSD: 112 T: 59; QT: 375; QTc: 419; Interpretive Statements; SINUS RHYTHM; LOW QRS VOLTAGE IN EXTREMITY LEADS; INTRAVENTRICULAR CONDUCTION DELAY; SIMILAR 02/23/16; Electronically Signed On 05-29-2016 11:31:57 EST by Kathryn Berg; Radiology Order: Chest, 1 View Test: Chest, 1 View REASON FOR EXAMINATION: Chest Pain; Clinical: Chest pain.; ; Comparison: 09/09/2015.; ; Findings:; Mediastinum and cardiac silhouette normal. Lung hernandez are relatively clear; without obvious consolidation, effusion, or pneumothorax. There is a very subtle; area of opacity at the left lung base which may warrant correlation with; auscultation and may reflect early infiltrate. Musculoskeletal structures appear; intact.; ; Impression:; Cannot exclude very subtle early infiltrate at the left base. Correlation with; auscultation may be warranted.; ; ; Signed by; Esdras Cruz MD 05/28/2016 09:20 P; Radiology Order: CT ABD & PELVIS: IV and Oral Contrast Test: CT ABD & PELVIS: IV and Oral Contrast REASON FOR EXAMINATION: Abdomen Pain; ; CLINICAL HISTORY: Abdominal pain.; TECHNIQUE: Multiple axial, sagittal and coronal CT images were obtained through the abdomen and pelvi; s after administration of oral and intravenous contrast material.; COMMENTS:; Changes from prior gastric bypass surgery.; Percutaneous gastrostomy tube is in good position.; Fluid filled dilated proximal small bowels.; The liver is of uniform attenuation without mass or defect. There is no intra or extrahepatic biliary; ductal dilatation. The spleen is normal. The gallbladder is surgically absent. The pancreas is of no; rmal contour and attenuation characteristics. There is no evidence of adrenal mass.; Both kidneys demonstrate prompt and equal nephrograms. The kidneys are normal in size, shape and conf; iguration. There is no evidence of renal or ureteral mass. No renal or ureteral calculi are identifie; d. There is no hydroureter or hydronephrosis.; No evidence for appendicitis. There is no bowel wall thickening. There is no evidence of abdominal a; scites or lymphadenopathy.; There is no evidence of intrinsic or extrinsic bladder mass. There is no pelvic ascites or lymphadeno; analisa.; Images of the lung bases show no evidence of pleural or parenchymal mass. There are no pleural effusi; ons. Bilateral basilar complex density to the lungs and consolidations.; The bony structures are free of lytic or blastic lesions. Multilevel degenerative changes are seen in; volving the thoracolumbar spine. Scattered calcifications are seen involving the aorta and major bran; ches compatible with atherosclerosis.; IMPRESSION:; Prior gastric bypass surgery.; Fluid-filled mildly dilated proximal small bowels. Probably ileus.; No evidence of acute abdominal or pelvic pathology.; Thank you for your kind referral of this patient.; ; Radiology Order: ECG WITH READING ER PHYS Test: ECG WITH READING ER PHYS REASON FOR EXAMINATION: REPEAT; Stationary ECG Study; [facility] - ED; ; Test Date: 2016-05-29; Pat Name: EDWAR STOKES Department:; Room: -; Gender: M Hearing And Speech Assistant: giselle; : 1965 Requested By: BERE APARICIO; Order Number: [id number] Reading MD: Kathryn Berg; Measurements; Intervals [place]; Rate: 62 P: 69; MT: 199 QRS: -14; QRSD: 94 T: 58; QT: 399; QTc: 405; Interpretive Statements; SINUS RHYTHM; LOW VOLTAGE LIMB; DECREASED RATE 05/28/16; Electronically Signed On 05-29-2016 12:06:37 EST by Kathryn Berg; Radiology Order: CT Chest with contrast Test: CT Chest with contrast REASON FOR EXAMINATION: Chest Pain; ; CLINICAL HISTORY: Pain.; TECHNIQUE: Multiple axial CT images were obtained through the thorax with IV contrast material.; COMMENTS:; Bilateral basilar pulmonary consolidations.; Findings are more prominent in the lower lobes. Groundglass densities in the lingula and right middle; lobe.; There are no pleural effusions. There is no evidence of hilar or mediastinal lymphadenopathy. The hea; rt and great vessels are within normal limits.; The visualized portions of the liver are of uniform attenuation without mass or defect. There is no i; ntra or extrahepatic biliary ductal dilatation. The spleen is unremarkable. The visualized pancreas i; s of normal contour and attenuation characteristics. There is no evidence of adrenal mass. The visual; ized portions of the kidneys present no abnormalities.; The bony structures are free of lytic or blastic lesions.; Post contrast images demonstrate no evidence for abnormal enhancement.; IMPRESSION:; Bilateral multifocal airspace consolidations suggestive of bronchopneumonia.; Thank you for your kind referral of this patient.; ; Outcome: 04:00 Discharge ordered by Provider. cs11 04:24 The following High Risk Discharge criteria are identified: None. Discharged to home cf2 ambulatory, in taxi. Condition: stable Condition: improved. Discharge instructions given to patient, Instructed on discharge instructions, follow up and referral plans. medication usage, Demonstrated understanding of instructions, medications, Prescriptions given X 1. CT Study completed. 04:25 Discharge Assessment: Patient awake, alert and oriented x 3. No cognitive and/or cf2 functional deficits noted. Patient verbalized understanding of disposition instructions. Patient awake and alert. Oriented to person, place and time. patient administered narcotics - yes. 04:25 Patient left the ED. cf2 Signatures: Dispatcher [employer] EDMS Anika Ayala, Juan Pablo Olson MD MD br1 Rinku Jin jpEmi Cooley Craig, DO cs11 Aris Middleton,RN RN Bharat Mcguire jp4 Ara Villafana, Expediter Clerk Unit Barbara Altman RN RN af2 Deborah Salazar, PAID INTERN PAID INTERN cln Simona Adrian,RN RN cf2 Chart Complete MTDD
--- NOTE | 2016-06-03 09:21 | EDDOCDS ---
Physician Documentation [facility] Name: Edwar Stokes Age: 51 yrs Sex: Male : 1965 Arrival Date: 05/28/2016 Time: 20:04 Bed OBSERVATION Private MD: Cedric Marrero Disposition: 05/29/16 04:00 Discharged to Home/Self Care. Impression: Pneumonia in diseases classified elsewhere, Noninfective gastroenteritis and colitis, unspecified. - Condition is Stable. - Prescriptions for Zithromax Z- Alfredito 250 mg Oral Tablet - take 1 tablet by ORAL route as directed for 5 days Day 1- take two tablets once. Day 2, 3, 4 , 5 take one tablet once daily.; 6 tablet. - Medication Reconciliation, Local Pharmacy Hours form. - Follow up: Cedric Marrero MD; When: Call to arrange an appointment; Reason: Recheck today's complaints. - Problem is an ongoing problem. - Symptoms have improved. Historical: - Allergies: No known drug Allergies; - Home Meds: 1. Carafate 100 mg/mL Oral susp 10 mL 4 times per day 2. cyanocobalamin (vitamin B-12) 1,000 mcg oral tab every 3 days 3. mirtazapine 45 mg Oral tab 1 tab bedtime 4. multivitamin Oral tab 1 tab daily 5. omeprazole 40 mg Oral cpDR 1 cap 2 times per day 6. oxycodone 20 mg Oral tab 1 tab every 4 hours 7. Oysco-500 500 mg calcium (1,250 mg) oral tab twice a day 8. senna 8.6 mg oral tab 1 tabs twice a day 9. Tab-A-Christian oral tab twice a day 10. vitamin D-3 1000 units daily 11. Xanax 0.5 mg Oral tab daily as needed 12. zinc gluconate 50 mg oral tab daily - PMHx: c diff; chronic abdominal pain; esophageal strictures; GERD; opiate abuse; opiate dependency; - PSHx: Appendectomy; right arm tendon; Gastric Bypass; G-Tube Insertion; back surgery; Hernia repair- Umbilical; Cholecystectomy; - Social history: Smoking status: Patient uses tobacco products, heavy tobacco smoker. No barriers to communication noted, The patient speaks fluent Chinese, Speaks appropriately for age. - Family history: Not pertinent. - : The pt / caregiver states he / she is not on anticoagulants. Home medication list is obtained from the patient. - Exposure Risk Screening:: None identified. Vital Signs: 05/28 20:05 BP 95 / 67; Pulse 85; Resp 16; Temp 97.1(O); Pulse Ox 98% ; Weight 55.34 kg / 122 lbs cmb (M); Height 5 ft. 11 in. (180.34 cm); Pain 10/10; 21:14 BP 92 / 62 (auto/); cf2 21:15 Pulse 68 MON; Pulse Ox 94% ; cf2 21:28 Pulse 68 MON; Pulse Ox 98% ; cf2 21:28 BP 96 / 70 (auto/); cf2 21:41 Pulse 94 MON; Pulse Ox 98% ; cf2 21:43 BP 104 / 58 (auto/); cf2 22:09 BP 99 / 61 (auto/); cf2 22:09 Pulse Ox 97% ; cf2 22:13 Pulse Ox 98% ; cf2 22:13 BP 94 / 64 (auto/); cf2 22:28 Pulse Ox 97% ; cf2 22:28 BP 92 / 65 (auto/); cf2 22:43 Pulse Ox 98% ; cf2 22:43 BP 92 / 62 (auto/); cf2 22:58 Pulse Ox 97% ; cf2 22:58 BP 89 / 63 (auto/); cf2 23:16 Pulse Ox 97% ; cf2 23:16 BP 96 / 66 (auto/); cf2 05/29 00:20 BP 113 / 52 (auto/); cf2 00:22 Pulse Ox 98% ; cf2 02:54 BP 97 / 62 (auto/); cf2 02:54 Pulse 64 MON; Pulse Ox 97% ; cf2 03:20 Pulse 60 MON; Pulse Ox 96% ; cf2 03:20 BP 101 / 70 (auto/); cf2 03:50 BP 94 / 68 (auto/); cf2 03:50 Pulse 60 MON; Pulse Ox 96% ; cf2 05/28 20:05 Body Mass Index 17.02 (55.34 kg, 180.34 cm) cmb MDM: 05/28 20:33 Adult Education Professional/Pulse Ox/q 30 min VS ordered. br1 20:33 IV Saline Lock ordered. br1 20:33 Rhythm Strip to chart ordered. br1 20:33 Undress patient appropriately for examination ordered. br1 20:36 ECG WITH READING ER PHYS+CARDIAG ordered. EDMS 20:36 Basic Metabolic Profile Ordered. EDMS 20:36 CBC with Diff Ordered. EDMS 20:36 Cardiac Injury Profile Ordered. EDMS 20:36 Troponin Ordered. EDMS 20:42 NS 0.9% 500 ml IV at bolus once ordered. br1 20:42 NS 0.9% 1000 ml IV at 150 mL/hr continuous ordered. br1 20:42 morphine 2 mg IVP once ordered. br1 20:43 Ondansetron 4 mg IVP once ordered. br1 20:44 Chest, 1 View Ordered. EDMS 20:45 GASTROINTESTINAL (GI) PANEL Ordered. EDMS 21:18 LIPASE Ordered. EDMS 21:18 LIVER PROFILE Ordered. EDMS 21:55 Recheck B/P ordered. br1 21:56 morphine 2 mg IVP once ordered. br1 22:02 [facility] Payment Agreement was scanned into [employer] and attached to record. jpb 22:06 Financial registration complete. gjb 22:47 CBC with Diff Reviewed. br1 22:47 Chest, 1 View Reviewed. br1 22:59 CT ABD & PELVIS: IV and Oral Contrast Ordered. EDMS 23:04 Repeat EKG (put time details section) ordered. br1 23:04 Redraw CIP &Troponin (put time in details section) ordered. br1 23:05 oxyCODONE 20 mg PO once ordered. br1 23:10 Redraw CIP &Troponin (put time in details section) complete. sew 23:10 Repeat EKG (put time details section) complete. sew 23:11 CARDIAC MARKER PANEL Ordered. EDMS 23:12 ECG WITH READING ER PHYS ordered. EDMS 23:19 CT Chest with contrast Ordered. EDMS 05/29 01:54 Basic Metabolic Profile Reviewed. cs11 01:54 Cardiac Injury Profile Reviewed. cs11 01:54 LIVER PROFILE Reviewed. cs11 01:54 Troponin Reviewed. cs11 01:54 LIPASE Reviewed. cs11 01:54 CT Chest with contrast Reviewed. cs11 01:55 morphine 2 mg IVP once ordered. cs11 01:55 azithromycin 500 mg IVPB once over 1 hrs; dilute in 250mL of D5W or NS ordered. cs11 03:49 CARDIAC MARKER PANEL Reviewed. cs11 03:49 CT ABD & PELVIS: IV and Oral Contrast Reviewed. cs11 03:54 oxyCODONE 20 mg PO once ordered. cf2 05/30 08:48 T-Sheet-- Draft Copy was scanned into [employer] and attached to record. gb Administered Medications: 05/28 21:06 Drug: morphine 2 mg [morphine 2 mg/mL intravenous cartridge (1 mL)] Route: IVP; Site: cf2 left antecubital; 23:52 Follow up: Response: No significant change. cf2 21:06 Drug: Ondansetron 4 mg [ondansetron HCl 2 mg/mL intravenous solution (2 mL)] Route: cf2 IVP; Site: left antecubital; 23:51 Follow up: Response: No significant change. cf2 21:07 Drug: NS 0.9% 500 ml [sodium chloride 0.9 % intravenous solution] Route: IV; Rate: cf2 bolus; Site: left antecubital; 21:07 Drug: NS 0.9% 1000 ml [sodium chloride 0.9 % intravenous solution] Route: IV; Rate: 150 cf2 mL/hr; Site: left antecubital; 22:02 Drug: morphine 2 mg [morphine 2 mg/mL intravenous cartridge (1 mL)] Route: IVP; Site: cf2 left antecubital; 23:51 Follow up: Response: No significant change. cf2 23:10 Drug: oxyCODONE 20 mg [oxycodone 5 mg tablet (4 tabs)] Route: PO; cf2 23:51 Follow up: Response: No significant change. cf2 05/29 02:00 Drug: morphine 2 mg [morphine 2 mg/mL intravenous cartridge (1 mL)] Route: IVP; Site: cf2 left antecubital; 02:00 Drug: azithromycin 500 mg [azithromycin 500 mg intravenous solution] Route: IVPB; cf2 Infused Over: 1 hrs; Site: left antecubital; 03:54 Drug: oxyCODONE 20 mg [oxycodone 5 mg tablet (4 tabs)] Route: PO; cf2 Signatures: Dispatcher [employer] EDMS Anika Ayala, Reg Reg gb Juan Pablo Hitchcock MD MD br1 Rinku Jin Sarah sew Schiff, Craig, DO DO cs11 Aris Middleton RN RN Amara Vegas ChristinaRN RN cf2 The chart was reviewed and I authenticate all verbal orders and agree with the evaluation and treatment provided.Corrections: (The following items were deleted from the chart) 05/28 20:45 20:44 GASTROINTESTINAL (GI) PANEL+NIESHA ordered. EDMS EDMS 21:16 20:43 LIVER PROFILE+LAB ordered. EDMS EDMS 21:16 20:43 LIPASE+LAB ordered. EDMS EDMS 23:19 22:49 CT Chest without contrast+CT ordered. EDMS EDMS Attachments: 22:02 [facility] Payment Agreement jpb 05/30 08:48 T-Sheet-- Draft Copy gb Chart Complete MTDD
--- NOTE | 2016-06-03 09:21 | EDDOCDS ---
Nurse's Notes [facility] Name: Edwar Stokes Age: 51 yrs Sex: Male : 1965 Arrival Date: 05/28/2016 Time: 20:04 Bed OBSERVATION Private MD: Cedric Marrero Diagnosis: Pneumonia in diseases classified elsewhere;Noninfective gastroenteritis and colitis, unspecified Presentation: 05/28 20:11 Presenting complaint: Patient states: Patient reports that he has had diarrhea, jmb vomiting for one week. Called Dr. Delarosa in [place] whom told patient to report to ER. Patient reports having feeding tube. Adult Sepsis Screening: The patient does not have new or worsening altered mentation. Patient's respiratory rate is less than 22. Systolic blood pressure is greater than 100. Patient has a qSOFA score of 0- Negative Sepsis Screen. Suicide/Homicide risk assessment- the patient denies having any suicidal and/or homicidal ideations and does not present with any other emotional, behavioral or mental health complaints. Status: Patient is not a business services associate or dependent. Transition of care: patient was not received from another setting of care. 20:11 Acuity: ANA Level 3 jmb 20:11 Method Of Arrival: Walkin/Carried/Asstd jmb 20:13 Presenting complaint: Patient states: Patient reports that pain radiates from stomach jmb to left chest wall and his left arm is numb. Triage Assessment: 20:13 General: Appears in no apparent distress. Pain: Location: abdomen Pain currently is 10 jmb out of 10 on a pain scale. HIV screening NA for this visit Offered previously. Neurological: Level of Consciousness is awake, alert, obeys commands, Oriented to person, place, time, Speech is normal, Facial symmetry appears normal, Facial symmetry: tongue is midline. Respiratory: Airway is patent Respiratory effort is even, unlabored, Respiratory pattern is regular, symmetrical. GI: Abdomen is non- distended. Derm: Skin is pink, warm & dry. Musculoskeletal: Range of motion intact in all extremities. Historical: - Allergies: No known drug Allergies; - Home Meds: 1. Carafate 100 mg/mL Oral susp 10 mL 4 times per day 2. cyanocobalamin (vitamin B-12) 1,000 mcg oral tab every 3 days 3. mirtazapine 45 mg Oral tab 1 tab bedtime 4. multivitamin Oral tab 1 tab daily 5. omeprazole 40 mg Oral cpDR 1 cap 2 times per day 6. oxycodone 20 mg Oral tab 1 tab every 4 hours 7. Oysco-500 500 mg calcium (1,250 mg) oral tab twice a day 8. senna 8.6 mg oral tab 1 tabs twice a day 9. Tab-A-Christian oral tab twice a day 10. vitamin D-3 1000 units daily 11. Xanax 0.5 mg Oral tab daily as needed 12. zinc gluconate 50 mg oral tab daily - PMHx: c diff; chronic abdominal pain; esophageal strictures; GERD; opiate abuse; opiate dependency; - PSHx: Appendectomy; right arm tendon; Gastric Bypass; G-Tube Insertion; back surgery; Hernia repair- Umbilical; Cholecystectomy; - Social history: Smoking status: Patient uses tobacco products, heavy tobacco smoker. No barriers to communication noted, The patient speaks fluent Albanian, Speaks appropriately for age. - Family history: Not pertinent. - : The pt / caregiver states he / she is not on anticoagulants. Home medication list is obtained from the patient. - Exposure Risk Screening:: None identified. Screenin:08 Screening information is obtained from the patient. Fall risk: At risk due to gait cf2 disturbance. Assistance ADL's: requires no assistance with activities of daily living. Abuse/DV Screen: The patient / caregiver reports he/she is: not in a situation that causes fear, pain or injury. Nutritional screening: On G-tube feedings. Advance Directives: Further advance directive information is declined. home support is adequate. Assessment: 21:08 Adult Sepsis Screening: The patient does not have new or worsening altered mentation. cf2 Patient's respiratory rate is less than 22. Systolic blood pressure is greater than 100. Patient has a qSOFA score of 0- Negative Sepsis Screen. General: Appears cachectic, emaciated, malnourished, slender, Behavior is appropriate for age, cooperative, Denies fever, feeling ill, fatigue, chills. Pain: Denies pain. Neurological: No deficits noted. EENT: No deficits noted. Cardiovascular: No deficits noted. Respiratory: No deficits noted. GI: PEG tube Bowel sounds present X 4 quads. Abd is soft and non tender X 4 quads. : No deficits noted. Derm: No deficits noted. Musculoskeletal: No deficits noted. Injury Description: No known injury. 05/29 04:23 Reassessment: Patient appears in no apparent distress at this time. Patient states cf2 feeling better. Patient states symptoms have improved. Vital Signs: 05/28 20:05 BP 95 / 67; Pulse 85; Resp 16; Temp 97.1(O); Pulse Ox 98% ; Weight 55.34 kg (M); Height cmb 5 ft. 11 in. (180.34 cm); Pain 10/10; 21:14 BP 92 / 62 (auto/); cf2 21:15 Pulse 68 MON; Pulse Ox 94% ; cf2 21:28 Pulse 68 MON; Pulse Ox 98% ; cf2 21:28 BP 96 / 70 (auto/); cf2 21:41 Pulse 94 MON; Pulse Ox 98% ; cf2 21:43 BP 104 / 58 (auto/); cf2 22:09 BP 99 / 61 (auto/); cf2 22:09 Pulse Ox 97% ; cf2 22:13 Pulse Ox 98% ; cf2 22:13 BP 94 / 64 (auto/); cf2 22:28 Pulse Ox 97% ; cf2 22:28 BP 92 / 65 (auto/); cf2 22:43 Pulse Ox 98% ; cf2 22:43 BP 92 / 62 (auto/); cf2 22:58 Pulse Ox 97% ; cf2 22:58 BP 89 / 63 (auto/); cf2 23:16 Pulse Ox 97% ; cf2 23:16 BP 96 / 66 (auto/); cf2 05/29 00:20 BP 113 / 52 (auto/); cf2 00:22 Pulse Ox 98% ; cf2 02:54 BP 97 / 62 (auto/); cf2 02:54 Pulse 64 MON; Pulse Ox 97% ; cf2 03:20 Pulse 60 MON; Pulse Ox 96% ; cf2 03:20 BP 101 / 70 (auto/); cf2 03:50 BP 94 / 68 (auto/); cf2 03:50 Pulse 60 MON; Pulse Ox 96% ; cf2 05/28 20:05 Body Mass Index 17.02 (55.34 kg, 180.34 cm) cmb Vitals: 05/28 20:05 Log In Time: May 28, 2016 at 20:04. cmb ED Course: 20:05 Patient visited by Emi Garcia. cmb 20:05 Cedric Marrero MD is Private Physician. cmb 20:05 Patient moved to Waiting cmb 20:07 Patient moved to Pre RCE cmb 20:12 Triage Initiated jmb 20:15 Patient moved to PR2 / jmb 20:29 Juan Pablo Hitchcock MD is Attending Physician. br1 20:29 Patient moved to 12 jmb 20:38 Simona Adrian RN is Primary Nurse. cf2 20:38 Patient visited by Simona Adrian,KRISTOFER. cf2 20:41 Patient visited by Juan Pablo Hitchcock MD. br1 20:48 Patient visited by Deborah Salazar PCA. cln 20:48 EKG done. (by ED staff). Reviewed by Juan Pablo Hitchcock MD. cln 21:06 Patient visited by Simona Adrian RN. cf2 21:08 Patient visited by Simona Adrian RN. cf2 21:08 The patient / caregiver is instructed regarding the plan of care and ED course. Patient cf2 has correct armband on for positive identification. Placed in gown. Bed in low position. Call light in reach. Side rails up X 1. Side rails up X2. residential monitor on. Pulse ox on. NIBP on. Property :Personal belongings accompany Pt. Door closed. Noise minimized. Visitors limited. Lights dimmed. Moved to private room. Verbal reassurance given. Warm blanket given. Pillow given. Head of bed elevated. Diet: Patient is NPO. 21:08 Inserted saline lock: 20 gauge in right antecubital area and blood collected. The cf2 patient tolerated the procedure well. No procedures done that require assistance. 21:18 Patient visited by Ara Villafana, Nail Feeder. jlm 21:18 residential monitor on. Pulse ox on. NIBP on. jlm 21:34 Chest, 1 View Returned. EDMS 21:48 Patient visited by Simona Adrian,KRISTOFER. cf2 21:48 LIVER PROFILE Sent. cf2 21:48 LIPASE Sent. cf2 22:02 [place] Payment Agreement was scanned into [employer] and attached to record. jpb 22:26 Patient visited by Simona Adrian RN. cf2 23:07 Attending Physician role handed off by Juan Pablo Hitchcock MD cs11 23:07 Bere Aparicio DO is Attending Physician. cs11 23:21 Patient visited by Barbara Noble RN. af2 23:21 Labs drawn. (by ED staff). Sent per order to lab. af2 23:41 Patient visited by Ara Villafana, Nail Feeder. jlm 23:44 Patient moved to OBSERVATION cs11 05/29 00:24 Patient visited by Simona Adrian RN. cf2 00:26 Patient visited by Simona Adrian RN. cf2 01:33 CT Chest with contrast Returned. EDMS 01:41 Patient visited by Simona Adrian RN. cf2 02:09 CT ABD & PELVIS: IV and Oral Contrast Returned. EDMS 02:42 Patient visited by Bharat Fabian. jp4 02:42 EKG done. (by ED staff). Reviewed by Bere Aparicio DO. jp4 03:53 Patient visited by Simona Adrian RN. cf2 03:59 Cedric Marrero MD is Referral Physician. cs11 04:23 Patient visited by Simona Adrian RN. cf2 11:47 EKG-ADULT Returned. EDMS 12:30 ECG WITH READING ER PHYS Returned. EDMS 01 08:48 T-Sheet-- Draft Copy was scanned into [employer] and attached to record. gb Administered Medications: 05/28 21:06 Drug: morphine 2 mg [morphine 2 mg/mL intravenous cartridge (1 mL)] Route: IVP; Site: cf2 left antecubital; 23:52 Follow up: Response: No significant change. cf2 21:06 Drug: Ondansetron 4 mg [ondansetron HCl 2 mg/mL intravenous solution (2 mL)] Route: cf2 IVP; Site: left antecubital; 23:51 Follow up: Response: No significant change. cf2 21:07 Drug: NS 0.9% 500 ml [sodium chloride 0.9 % intravenous solution] Route: IV; Rate: cf2 bolus; Site: left antecubital; 21:07 Drug: NS 0.9% 1000 ml [sodium chloride 0.9 % intravenous solution] Route: IV; Rate: 150 cf2 mL/hr; Site: left antecubital; 22:02 Drug: morphine 2 mg [morphine 2 mg/mL intravenous cartridge (1 mL)] Route: IVP; Site: cf2 left antecubital; 23:51 Follow up: Response: No significant change. cf2 23:10 Drug: oxyCODONE 20 mg [oxycodone 5 mg tablet (4 tabs)] Route: PO; cf2 23:51 Follow up: Response: No significant change. cf2 05/29 02:00 Drug: morphine 2 mg [morphine 2 mg/mL intravenous cartridge (1 mL)] Route: IVP; Site: cf2 left antecubital; 02:00 Drug: azithromycin 500 mg [azithromycin 500 mg intravenous solution] Route: IVPB; cf2 Infused Over: 1 hrs; Site: left antecubital; 03:54 Drug: oxyCODONE 20 mg [oxycodone 5 mg tablet (4 tabs)] Route: PO; cf2 Order Results: Lab Order: Basic Metabolic Profile; SPEC'M 05/28/16 23:17 Test: GLUCOSE, FASTING; Value: 79; Range: 70-105; Units: MG/DL; Status: F Test: BLOOD UREA NITROGEN; Value: 12; Range: 7-18; Units: MG/DL; Status: F Test: CREATININE FOR GFR; Value: 0.56; Range: 0.70-1.30; Abnormal: Below low normal; Units: MG/DL; Status: F Test: GLOMERULAR FILTRATION RATE; Value: > 60.0; Range: >56; Status: F Test: SODIUM LEVEL; Value: 141; Range: 136-145; Units: MEQ/L; Status: F Test: POTASSIUM SERUM; Value: 3.5; Range: 3.5-5.1; Units: MEQ/L; Status: F Test: CHLORIDE LEVEL; Value: 106; Range: 98-107; Units: MEQ/L; Status: F Test: CARBON DIOXIDE LEVEL; Value: 28; Range: 21-32; Units: MEQ/L; Status: F Test: ANION GAP; Value: 7; Range: 8-16; Abnormal: Below low normal; Units: MEQ/L; Status: F Test: CALCIUM LEVEL; Value: 7.6; Range: 8.5-10.1; Abnormal: Below low normal; Units: MG/DL; Status: F Test Note: ; Units are mL/min/1.73 m2 Chronic Kidney Disease Staging per NKF: Stage I & II GFR >=60 Normal to Mildly Decreased Stage III GFR 30-59 Moderately Decreased Stage IV GFR 15-29 Severely Decreased Stage V GFR <15 Very Little GFR Left ESRD GFR <15 on GENETICS NURSE Lab Order: CBC with Diff; SPEC'M 05/28/16 20:53 Test: WHITE BLOOD COUNT; Value: 7.0; Range: 4.0-10.0; Units: K/mm3; Status: F Test: RED BLOOD COUNT; Value: 3.57; Range: 4.30-6.10; Abnormal: Below low normal; Units: M/mm3; Status: F Test: HEMOGLOBIN; Value: 11.0; Range: 14.0-18.0; Abnormal: Below low normal; Units: g/dl; Status: F Test: HEMATOCRIT; Value: 33.2; Range: 42.0-52.0; Abnormal: Below low normal; Units: %; Status: F Test: MEAN CORPUSCULAR VOLUME; Value: 93.2; Range: 80.0-96.0; Units: fl; Status: F Test: MEAN CORPUSCULAR HEMOGLOBIN; Value: 30.8; Range: 27.0-33.0; Units: pg; Status: F Test: MEAN CORPUSCULAR HGB CONC; Value: 33.0; Range: 32.0-36.5; Units: g/dl; Status: F Test: RED CELL DISTRIBUTION WIDTH; Value: 13.3; Range: 11.5-14.5; Units: %; Status: F Test: PLATELET COUNT, AUTOMATED; Value: 318; Range: 150-450; Units: k/mm3; Status: F Test: NEUTROPHILS %; Value: 71.9; Range: 36.0-66.0; Abnormal: Above high normal; Units: %; Status: F Test: LYMPH %; Value: 19.8; Range: 24.0-44.0; Abnormal: Below low normal; Units: %; Status: F Test: MONO %; Value: 5.0; Range: 0.0-5.0; Units: %; Status: F Test: EOS %; Value: 1.1; Range: 0.0-3.0; Units: %; Status: F Test: BASO %; Value: 0.4; Range: 0.0-1.0; Units: %; Status: F Test: LARGE UNSTAINED CELL %; Value: 1.9; Range: 0.0-4.0; Units: %; Status: F Test: NEUTROPHILS #; Value: 5.0; Range: 1.8-7.7; Units: K/mm3; Status: F Test: LYMPH #; Value: 1.4; Range: 1.5-4.5; Abnormal: Below low normal; Units: K/mm3; Status: F Test: MONO #; Value: 0.4; Range: 0.0-0.8; Units: K/mm3; Status: F Test: EOS #; Value: 0.1; Range: 0.0-0.50; Units: K/mm3; Status: F Test: BASO #; Value: 0.0; Range: 0.0-0.2; Units: K/mm3; Status: F Test: LARGE UNSTAINED CELL #; Value: 0.1; Range: 0.0-0.4; Units: K/mm3; Status: F Lab Order: Cardiac Injury Profile; SPEC'M 05/28/16 23:17 Test: CPK CREATINE PHOSPHOKINASE; Value: 17; Range: 39-308; Abnormal: Below low normal; Units: U/L; Status: F Test: CK-MB VALUE MASS; Value: 1.0; Range: 0.0-3.6; Units: NG/ML; Status: F Test: MB/CK RELATIVE INDEX; Value: 5.88; Range: < OR =4; Abnormal: Above high normal; Status: F Test Note: ; DIAGNOSIS CRITERIA MMB ng/ml Relative Index (RI) NON-AMI < or = 5 N/A PIPER ZONE > 5 < or = 4 AMI > 5 > 4 Lab Order: Troponin; SPEC'M 05/28/16 23:17 Test: TROPONIN I; Value: < 0.02; Range: < 0.10; Units: NG/ML; Status: F Test Note: ; Troponin I Reference Interval for [employer] LOCI: 99th Percentile= 0.00-0.045 ng/ml Risk Stratification: <= 0.10 ng/ml Decreased Risk for Adverse Clinical Events. 0.10-1.50 ng/ml Increased Risk for Adverse Clinical Events. Evaluation of additional criterion and/or repeat testing in 2-6 hours is suggested to rule out myocardial damage. >= 1.50 ng/ml Indicative of Myocardial Injury. Lab Order: LIPASE; SPEC'M 05/28/16 23:17 Test: LIPASE; Value: 103; Range: 73-393; Units: U/L; Status: F Lab Order: LIVER PROFILE; SPEC'M 05/28/16 23:17 Test: AST/SGOT; Value: 11; Range: 15-37; Abnormal: Below low normal; Units: U/L; Status: F Test: ALT/SGPT; Value: 13; Range: 12-78; Units: U/L; Status: F Test: ALKALINE PHOSPHATASE; Value: 82; Range: 45-117; Units: U/L; Status: F Test: BILIRUBIN,TOTAL; Value: 0.5; Range: 0.2-1.0; Units: MG/DL; Status: F Test: BILIRUBIN,DIRECT; Value: 0.3; Range: 0.0-0.2; Abnormal: Above high normal; Units: MG/DL; Status: F Test: TOTAL PROTEIN; Value: 6.7; Range: 6.4-8.2; Units: GM/DL; Status: F Test: ALBUMIN; Value: 2.5; Range: 3.2-5.2; Abnormal: Below low normal; Units: GM/DL; Status: F Test: ALBUMIN/GLOBULIN RATIO; Value: 0.60; Range: 1.00-1.93; Abnormal: Below low normal; Status: F Lab Order: CARDIAC MARKER PANEL; SPEC' 05/29/16 02:53 Test: CPK CREATINE PHOSPHOKINASE; Value: 20; Range: 39-308; Abnormal: Below low normal; Units: U/L; Status: F Test: CK-MB VALUE MASS; Value: 1.0; Range: 0.0-3.6; Units: NG/ML; Status: F Test: MB/CK RELATIVE INDEX; Value: 5.00; Range: < OR =4; Abnormal: Above high normal; Status: F Test: TROPONIN I; Value: < 0.02; Range: < 0.10; Units: NG/ML; Status: F Test Note: ; DIAGNOSIS CRITERIA MMB ng/ml Relative Index (RI) NON-AMI < or = 5 N/A PIPER ZONE > 5 < or = 4 AMI > 5 > 4 Radiology Order: EKG-ADULT Test: EKG-ADULT REASON FOR EXAMINATION: Chest Pain; Stationary ECG Study; [facility] - ED; ; Test Date: 2016-05-28; Pat Name: EDWAR STOKES Department:; Room: -; Gender: M Binding Folder Machine: [id number]; : 1965 Requested By: BERE APARICIO; Order Number: [id number] Reading MD: Kathryn Berg; Measurements; Intervals [place]; Rate: 75 P: 81; ME: 192 QRS: -7; QRSD: 112 T: 59; QT: 375; QTc: 419; Interpretive Statements; SINUS RHYTHM; LOW QRS VOLTAGE IN EXTREMITY LEADS; INTRAVENTRICULAR CONDUCTION DELAY; SIMILAR 02/23/16; Electronically Signed On 05-29-2016 11:31:57 EST by Kathryn Berg; Radiology Order: Chest, 1 View Test: Chest, 1 View REASON FOR EXAMINATION: Chest Pain; Clinical: Chest pain.; ; Comparison: 09/09/2015.; ; Findings:; Mediastinum and cardiac silhouette normal. Lung hernandez are relatively clear; without obvious consolidation, effusion, or pneumothorax. There is a very subtle; area of opacity at the left lung base which may warrant correlation with; auscultation and may reflect early infiltrate. Musculoskeletal structures appear; intact.; ; Impression:; Cannot exclude very subtle early infiltrate at the left base. Correlation with; auscultation may be warranted.; ; ; Signed by; Esdras Cruz MD 05/28/2016 09:20 P; Radiology Order: CT ABD & PELVIS: IV and Oral Contrast Test: CT ABD & PELVIS: IV and Oral Contrast REASON FOR EXAMINATION: Abdomen Pain; ; CLINICAL HISTORY: Abdominal pain.; TECHNIQUE: Multiple axial, sagittal and coronal CT images were obtained through the abdomen and pelvi; s after administration of oral and intravenous contrast material.; COMMENTS:; Changes from prior gastric bypass surgery.; Percutaneous gastrostomy tube is in good position.; Fluid filled dilated proximal small bowels.; The liver is of uniform attenuation without mass or defect. There is no intra or extrahepatic biliary; ductal dilatation. The spleen is normal. The gallbladder is surgically absent. The pancreas is of no; rmal contour and attenuation characteristics. There is no evidence of adrenal mass.; Both kidneys demonstrate prompt and equal nephrograms. The kidneys are normal in size, shape and conf; iguration. There is no evidence of renal or ureteral mass. No renal or ureteral calculi are identifie; d. There is no hydroureter or hydronephrosis.; No evidence for appendicitis. There is no bowel wall thickening. There is no evidence of abdominal a; scites or lymphadenopathy.; There is no evidence of intrinsic or extrinsic bladder mass. There is no pelvic ascites or lymphadeno; analisa.; Images of the lung bases show no evidence of pleural or parenchymal mass. There are no pleural effusi; ons. Bilateral basilar complex density to the lungs and consolidations.; The bony structures are free of lytic or blastic lesions. Multilevel degenerative changes are seen in; volving the thoracolumbar spine. Scattered calcifications are seen involving the aorta and major bran; ches compatible with atherosclerosis.; IMPRESSION:; Prior gastric bypass surgery.; Fluid-filled mildly dilated proximal small bowels. Probably ileus.; No evidence of acute abdominal or pelvic pathology.; Thank you for your kind referral of this patient.; ; Radiology Order: ECG WITH READING ER PHYS Test: ECG WITH READING ER PHYS REASON FOR EXAMINATION: REPEAT; Stationary ECG Study; [facility] - ED; ; Test Date: 2016-05-29; Pat Name: EDWAR STOKES Department:; Room: -; Gender: M Binding Folder Machine: [id number]; : 1965 Requested By: BERE APARICIO; Order Number: [id number] Reading MD: Kathryn Berg; Measurements; Intervals [place]; Rate: 62 P: 69; ME: 199 QRS: -14; QRSD: 94 T: 58; QT: 399; QTc: 405; Interpretive Statements; SINUS RHYTHM; LOW VOLTAGE LIMB; DECREASED RATE 05/28/16; Electronically Signed On 05-29-2016 12:06:37 EST by Kathryn Berg; Radiology Order: CT Chest with contrast Test: CT Chest with contrast REASON FOR EXAMINATION: Chest Pain; ; CLINICAL HISTORY: Pain.; TECHNIQUE: Multiple axial CT images were obtained through the thorax with IV contrast material.; COMMENTS:; Bilateral basilar pulmonary consolidations.; Findings are more prominent in the lower lobes. Groundglass densities in the lingula and right middle; lobe.; There are no pleural effusions. There is no evidence of hilar or mediastinal lymphadenopathy. The hea; rt and great vessels are within normal limits.; The visualized portions of the liver are of uniform attenuation without mass or defect. There is no i; ntra or extrahepatic biliary ductal dilatation. The spleen is unremarkable. The visualized pancreas i; s of normal contour and attenuation characteristics. There is no evidence of adrenal mass. The visual; ized portions of the kidneys present no abnormalities.; The bony structures are free of lytic or blastic lesions.; Post contrast images demonstrate no evidence for abnormal enhancement.; IMPRESSION:; Bilateral multifocal airspace consolidations suggestive of bronchopneumonia.; Thank you for your kind referral of this patient.; ; Outcome: 04:00 Discharge ordered by Provider. cs11 04:24 The following High Risk Discharge criteria are identified: None. Discharged to home cf2 ambulatory, in taxi. Condition: stable Condition: improved. Discharge instructions given to patient, Instructed on discharge instructions, follow up and referral plans. medication usage, Demonstrated understanding of instructions, medications, Prescriptions given X 1. CT Study completed. 04:25 Discharge Assessment: Patient awake, alert and oriented x 3. No cognitive and/or cf2 functional deficits noted. Patient verbalized understanding of disposition instructions. Patient awake and alert. Oriented to person, place and time. patient administered narcotics - yes. 04:25 Patient left the ED. cf2 Signatures: Dispatcher [employer] EDMS Anika Ayala, Juan Pablo Olson MD MD br1 Rinku Jin jpEmi Cooley Craig, DO cs11 Aris Middleton,RN RN Bharat Mcguire jp4 Ara Villafana, Nail Feeder Unit Barbara Altman RN RN af2 Deborah Salazar, CERTIFIED HYPERBARIC TECHNICIAN CERTIFIED HYPERBARIC TECHNICIAN cln Simona Adrian,RN RN cf2 Chart Complete MTDD
[2016-08-04] MEDS ORDERED: MORP15TA2 PO (12:30)
== END 2016-05-29 04:25 | disposition home or self-care (01) ==
LOC: M ED 20:04
DX: J18.9 Pneumonia, unspecified organism (principal); K52.9 Noninfective gastroenteritis and colitis, unspecified; Z98.84 Bariatric surgery status; K21.9 Gastro-esophageal reflux disease without esophagitis; R10.9 Unspecified abdominal pain; G89.29 Other chronic pain; K22.2 Esophageal obstruction; F11.20 Opioid dependence, uncomplicated; Z86.19 Personal history of other infectious and parasitic diseases; Z79.899 Other long term (current) drug therapy; F17.200 Nicotine dependence, unspecified, uncomplicated
CPT/HCPCS: 36415; 71010; 71260; 74177; 80048; 80076; 82550; 82553; 83690; 84484; 85025; 93005; 93041; 96374; 96375; 96376; 99285; J0456; J2405; Q9963; Q9967

== ENCOUNTER 2016-05-31 19:46 | Inpatient (IN) | payer MEDICARE, OTHER ==
[~2016-05-31] VITALS: Ht 180.3 cm; Wt 54.4 kg
[2016-05-31 20:38] LABS: BASO % 0.4 % (0.0-1.0); EOS # 0.1 K/mm3 (0.0-0.50); EOS % 1.4 % (0.0-3.0); LARGE UNSTAINED CELL # 0.1 K/mm3 (0.0-0.4); LARGE UNSTAINED CELL % 2.5 % (0.0-4.0); LYMPH # 1.6 K/mm3 (1.5-4.5); LYMPH % 33.7 % (24.0-44.0); MEAN CORPUSCULAR HEMOGLOBIN 31.6 pg (27.0-33.0); MEAN CORPUSCULAR HGB CONC 33.6 g/dl (32.0-36.5); MONO # 0.2 K/mm3 (0.0-0.8); MONO % 4.6 % (0.0-5.0); NEUTROPHILS # 2.7 K/mm3 (1.8-7.7); NEUTROPHILS % 57.5 % (36.0-66.0); PLATELET COUNT, AUTOMATED 328 k/mm3 (150-450); RED CELL DISTRIBUTION WIDTH 13.8 % (11.5-14.5); WHITE BLOOD COUNT 4.7 K/mm3 (4.0-10.0)
[2016-05-31] MEDS ORDERED: ONDANSETRON 4MG/2ML VIAL (J2405) As Ordered ONE (20:52)
[2016-05-31] MEDS ORDERED: HYDROmorphone HCL 1 MG/ML SYRINGE (J1170) As Ordered ONE (20:52)
[2016-05-31 22:57] LABS: ALBUMIN 2.6 GM/DL (3.2-5.2); ALBUMIN/GLOBULIN RATIO 0.65 (1.00-1.93); ALKALINE PHOSPHATASE 84 U/L (45-117); ALT/SGPT 13 U/L (12-78); AMYLASE 35 U/L (25-115); ANION GAP 8 MEQ/L (8-16); AST/SGOT 12 U/L (15-37); BILIRUBIN,DIRECT 0.2 MG/DL (0.0-0.2); BILIRUBIN,TOTAL 0.4 MG/DL (0.2-1.0); BLOOD UREA NITROGEN 13 MG/DL (7-18); CALCIUM LEVEL 7.9 MG/DL (8.5-10.1); CARBON DIOXIDE LEVEL 29 MEQ/L (21-32); CHLORIDE LEVEL 108 MEQ/L (98-107); CREATININE FOR GFR 0.54 MG/DL (0.70-1.30); GLOMERULAR FILTRATION RATE > 60.0 (>56); GLUCOSE, FASTING 75 MG/DL (70-105); POTASSIUM SERUM 3.5 MEQ/L (3.5-5.1); SODIUM LEVEL 145 MEQ/L (136-145); TOTAL PROTEIN 6.6 GM/DL (6.4-8.2)
--- NOTE | 2016-05-31 23:07 | ECGEPIP ---
Stationary ECG Study [facility] - ED Test Date: 2016-05-31 Pat Name: GRAHAM COLEMAN Department: Room: - Gender: M Purchase Analyst: [place] : 1965 Requested By: MIKE Guzman Order Number: [id number] Reading MD: Smith Enamorado Measurements Intervals [place] Rate: 64 P: 68 TN: 189 QRS: -9 QRSD: 96 T: 31 QT: 439 QTc: 456 Interpretive Statements SINUS RHYTHM INC. RBBB Electronically Signed On 05-31-2016 23:07:14 EST by Smith Enamorado
[2016-05-31] MEDS ORDERED: LevoFLOXacin/DEXTROSE 750 MG/150 ML BAG (J1956) As Ordered ONE (23:39)
[2016-05-31] MEDS ORDERED: ACETAMINOPHEN TAB 650MG DOSE (2X325MG) PO PRN (23:45)
--- NOTE | 2016-06-01 00:30 | EDDOCDS ---
Nurse's Notes [facility] Name: Edwar Coleman Age: 51 yrs Sex: Male : 1965 Arrival Date: 05/31/2016 Time: 19:46 Bed 18 Private MD: Cedric Marrero A. Diagnosis: Other pneumonia, unspecified organism;Patient's intentional underdosing of medication regimen due to financial hardship Presentation: 05/31 19:52 Presenting complaint: Patient states: he has had chest pain intermittently for 3 days cz since he was last here pain is intermittent not sure when this episode started pt also complains of abdominal pain and inability eating.pt states was diagnosed with pneumonia on last visit but never filled his prescription. Aspirin was not taken prior to arrival. Adult Sepsis Screening: The patient does not have new or worsening altered mentation. Patient's respiratory rate is less than 22. Systolic blood pressure is greater than 100. Patient has a qSOFA score of 0- Negative Sepsis Screen. Suicide/Homicide risk assessment- the patient denies having any suicidal and/or homicidal ideations and does not present with any other emotional, behavioral or mental health complaints. Status: Patient is not a service observer or dependent. Transition of care: patient was not received from another setting of care. 19:52 Acuity: ANA Level 2 cz 19:52 Method Of Arrival: Wheelchair cz 20:00 Red Flag criteria, patient assessed and taken directly to a bed. cz Triage Assessment: 19:58 General: Appears cachectic, Behavior is anxious, appropriate for age. Pain: Location: cz chest. HIV screening NA for this visit Offered previously. 22:53 Cardiovascular: Chest pain is described as vague, radiates Does not radiate. episodes ko2 are continuous began. Historical: - Allergies: No known drug Allergies; - Home Meds: 1. Carafate 100 mg/mL Oral susp 10 mL 4 times per day 2. cyanocobalamin (vitamin B-12) 1,000 mcg oral tab every 3 days 3. mirtazapine 45 mg Oral tab 1 tab bedtime 4. omeprazole 40 mg Oral cpDR 1 cap 2 times per day 5. Oysco-500 500 mg calcium (1,250 mg) oral tab twice a day 6. senna 8.6 mg oral tab 1 tabs twice a day 7. Tab-A-Christian oral tab twice a day 8. vitamin D-3 1000 units daily 9. Xanax 0.5 mg Oral tab daily as needed 10. zinc gluconate 50 mg oral tab daily 11. multivitamin Oral tab 1 tab daily 12. oxycodone 20 mg Oral tab 1 tab every 4 hours has not taken in 24 hours - PMHx: c diff; chronic abdominal pain; esophageal strictures; GERD; opiate abuse; opiate dependency; - PSHx: Appendectomy; Hernia repair- Umbilical; Gastric Bypass; G-Tube Insertion; Cholecystectomy; back surgery; repair right tendon repair; - Social history: Smoking status: Patient uses tobacco products, current every day smoker. No barriers to communication noted, The patient speaks fluent Beninese, Speaks appropriately for age. - Family history: Not pertinent. - : The pt / caregiver states he / she is not on anticoagulants. Home medication list is obtained from [employer] import data. - Exposure Risk Screening:: None identified. Screenin:31 Screening information is obtained from the patient. Fall risk: No risks identified. ko2 Assistance ADL's: requires no assistance with activities of daily living. Abuse/DV Screen: The patient / caregiver reports he/she is: not in a situation that causes fear, pain or injury. Nutritional screening: No deficits noted. Advance Directives: Currently, there is no health care proxy. home support is adequate. Assessment: 20:01 General: Appears cachectic, Behavior is cooperative, fussy. Pain: Location: anterior ld5 aspect of left upper chest Pain currently is 4 out of 10 on a pain scale. At worst was 10 out of 10 on a pain scale. Pain does not radiate. Quality of pain is described as sharp, stabbing, Pain began last night per pt. Neurological: Level of Consciousness is awake, obeys commands. Respiratory: Airway is patent. GI: Reports nausea, vomiting. 20:05 General: Pt reports he has not taken his home pain medication since last night . ld5 20:05 General: Pt diagnosed with pneumonia at [facility] a few days ago but has not picked up his ld5 antibiotic prescription yet. 21:02 General: Appears in no apparent distress, Behavior is cooperative. Pain: Location: ko2 chest Pain currently is 10 out of 10 on a pain scale. Neurological: Level of Consciousness is awake, obeys commands. Cardiovascular: Rhythm is sinus rhythm. Respiratory: Airway is patent. Derm: Skin is normal. 21:30 General: Appears in no apparent distress, Behavior is cooperative. Neurological: Level ko2 of Consciousness is awake. Cardiovascular: Rhythm is sinus rhythm No ectopy. Respiratory: Airway is patent. Derm: Skin is normal. 22:30 General: Appears in no apparent distress, Behavior is cooperative. Pain: Location: ko2 chest Pain currently is 8 out of 10 on a pain scale. Neurological: Level of Consciousness is awake, obeys commands. Cardiovascular: Rhythm is sinus rhythm No ectopy. Respiratory: Airway is patent. Derm: Skin is normal. 06/01 00:20 General: Appears in no apparent distress, Behavior is cooperative. Neurological: Level ko2 of Consciousness is awake, obeys commands. Respiratory: Airway is patent. Vital Signs: 05/31 19:48 BP 99 / 71; Pulse 74; Resp 18; Temp 96.6(O); Pulse Ox 100% on R/A; Weight 54.43 kg (R); elp Height 5 ft. 11 in. (180.34 cm) (R); Pain 10/10; 20:08 BP 105 / 72 (auto/); ko2 20:08 Pulse 64 MON; Pulse Ox 99% ; ko2 20:23 BP 105 / 76 (auto/); ko2 20:23 Pulse 70 MON; Pulse Ox 98% ; ko2 20:38 BP 101 / 73 (auto/); ko2 20:38 Pulse 62 MON; Pulse Ox 98% ; ko2 20:53 BP 100 / 71 (auto/); ko2 20:53 Pulse 60 MON; Pulse Ox 100% ; ko2 21:22 Pulse 56 MON; Pulse Ox 98% ; ko2 21:23 BP 89 / 61 (auto/); ko2 21:38 BP 96 / 66 (auto/); ko2 21:38 Pulse 60 MON; Pulse Ox 97% ; ko2 21:53 BP 94 / 67 (auto/); lf1 21:53 Pulse 58 MON; Pulse Ox 98% ; lf1 22:08 BP 95 / 65 (auto/); ko2 22:08 Pulse 58 MON; Pulse Ox 98% ; ko2 22:23 BP 95 / 66 (auto/); ko2 22:23 Pulse 56 MON; Pulse Ox 97% ; ko2 22:38 BP 98 / 68 (auto/); ko2 22:38 Pulse 58 MON; Pulse Ox 97% ; ko2 23:38 BP 100 / 68 (auto/); Pulse 62; Resp 18; Temp 97; Pulse Ox 96% ; Pain 8/10; ko2 19:48 Body Mass Index 16.74 (54.43 kg, 180.34 cm) elp Vitals: 19:48 Log In Time: May 31, 2016 at 19:46. RN notified that patient meets Red Flag elp criteria. ED Course: 19:47 Patient visited by Victorina Glover PCA. elp 19:47 Cedric Marrero is Private Physician. elp 19:47 Patient moved to Waiting elp 19:48 Anjana Corbin,KRISTOFER is Primary Nurse. cz 19:48 Patient visited by Victorina Glover PCA. elp 19:48 Patient moved to 18 cz 19:53 Triage Initiated cz 19:56 Mike Martinez DO is Attending Physician. mm11 19:57 Patient visited by Mike Martinez DO. mm11 20:05 Patient visited by Carlos Longoria PCA. kb5 20:05 EKG done. (by ED staff). Reviewed by Mike Martinez DO. kb5 20:20 Inserted saline lock: 20 gauge in left antecubital area and blood collected. The ko2 patient tolerated the procedure well. 20:25 Patient visited by Mike Martinez DO. mm11 20:28 Basic Metabolic Profile Sent. ld5 20:28 CBC with Diff Sent. ld5 20:28 Cardiac Injury Profile Sent. ld5 20:29 Troponin Sent. ld5 20:40 -Blood Culture Sent. ld5 20:40 Lactic Acid (Jonas tube on ice) Sent. ld5 20:40 BLOOD CULTURES Sent. ld5 20:41 LIVER PROFILE Sent. ld5 20:41 LIPASE Sent. ld5 20:41 AMYLASE Sent. ld5 21:02 Patient visited by Anjana Corbin RN. ko2 21:04 Patient visited by Anjana Corbin,KRISTOFER. ko2 21:31 The patient / caregiver is instructed regarding the plan of care and ED course. Cardiac ko2 monitor on. Pulse ox on. NIBP on. 22:02 Patient visited by Carlos Longoria PCA. kb5 22:57 Patient visited by Anjana Corbin RN. ko2 23:33 Em Salinas assistant teaching professor. ys2 23:35 Patient visited by Mike Martinez DO. mm11 23:37 Em Salinas is Hospitalizing Provider. mm11 23:42 EKG-ADULT Returned. EDMS 23:47 Patient visited by Anjana Corbin RN. ko2 23:55 [facility] Payment Agreement was scanned into [employer] and attached to record. gjb 06/01 00:21 No procedures done that require assistance. ko2 Administered Medications: 05/31 21:01 Drug: Ondansetron 4 mg [ondansetron HCl 2 mg/mL intravenous solution (2 mL)] Route: ko2 IVP; Site: left antecubital; 21:01 Drug: Dilaudid - HYDROmorphone 0.5 mg [hydromorphone 1 mg/mL injection syringe (0.5 ko2 mL)] Route: IVP; Site: left antecubital; 22:28 Drug: Dilaudid - HYDROmorphone 0.5 mg [hydromorphone 1 mg/mL injection syringe (0.5 ko2 mL)] Route: IVP; Site: left antecubital; 23:47 Drug: levofloxacin 750 mg [levofloxacin 750 mg/150 mL in 5 % dextrose intravenous ko2 piggyback] Route: IVPB; Infused Over: 90 mins; Site: left antecubital; Order Results: Lab Order: Basic Metabolic Profile; SPEC'M 05/31/16 22:26 Test: GLUCOSE, FASTING; Value: 75; Range: 70-105; Units: MG/DL; Status: F Test: BLOOD UREA NITROGEN; Value: 13; Range: 7-18; Units: MG/DL; Status: F Test: CREATININE FOR GFR; Value: 0.54; Range: 0.70-1.30; Abnormal: Below low normal; Units: MG/DL; Status: F Test: GLOMERULAR FILTRATION RATE; Value: > 60.0; Range: >56; Status: F Test: SODIUM LEVEL; Value: 145; Range: 136-145; Units: MEQ/L; Status: F Test: POTASSIUM SERUM; Value: 3.5; Range: 3.5-5.1; Units: MEQ/L; Status: F Test: CHLORIDE LEVEL; Value: 108; Range: 98-107; Abnormal: Above high normal; Units: MEQ/L; Status: F Test: CARBON DIOXIDE LEVEL; Value: 29; Range: 21-32; Units: MEQ/L; Status: F Test: ANION GAP; Value: 8; Range: 8-16; Units: MEQ/L; Status: F Test: CALCIUM LEVEL; Value: 7.9; Range: 8.5-10.1; Abnormal: Below low normal; Units: MG/DL; Status: F Test Note: ; Units are mL/min/1.73 m2 Chronic Kidney Disease Staging per NKF: Stage I & II GFR >=60 Normal to Mildly Decreased Stage III GFR 30-59 Moderately Decreased Stage IV GFR 15-29 Severely Decreased Stage V GFR <15 Very Little GFR Left ESRD GFR <15 on 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 Lab Order: CBC with Diff; SPEC'M 05/31/16 19:59 Test: WHITE BLOOD COUNT; Value: 4.7; Range: 4.0-10.0; Units: K/mm3; Status: F Test: RED BLOOD COUNT; Value: 3.63; Range: 4.30-6.10; Abnormal: Below low normal; Units: M/mm3; Status: F Test: HEMOGLOBIN; Value: 11.5; Range: 14.0-18.0; Abnormal: Below low normal; Units: g/dl; Status: F Test: HEMATOCRIT; Value: 34.1; Range: 42.0-52.0; Abnormal: Below low normal; Units: %; Status: F Test: MEAN CORPUSCULAR VOLUME; Value: 94.0; Range: 80.0-96.0; Units: fl; Status: F Test: MEAN CORPUSCULAR HEMOGLOBIN; Value: 31.6; Range: 27.0-33.0; Units: pg; Status: F Test: MEAN CORPUSCULAR HGB CONC; Value: 33.6; Range: 32.0-36.5; Units: g/dl; Status: F Test: RED CELL DISTRIBUTION WIDTH; Value: 13.8; Range: 11.5-14.5; Units: %; Status: F Test: PLATELET COUNT, AUTOMATED; Value: 328; Range: 150-450; Units: k/mm3; Status: F Test: NEUTROPHILS %; Value: 57.5; Range: 36.0-66.0; Units: %; Status: F Test: LYMPH %; Value: 33.7; Range: 24.0-44.0; Units: %; Status: F Test: MONO %; Value: 4.6; Range: 0.0-5.0; Units: %; Status: F Test: EOS %; Value: 1.4; Range: 0.0-3.0; Units: %; Status: F Test: BASO %; Value: 0.4; Range: 0.0-1.0; Units: %; Status: F Test: LARGE UNSTAINED CELL %; Value: 2.5; Range: 0.0-4.0; Units: %; Status: F Test: NEUTROPHILS #; Value: 2.7; Range: 1.8-7.7; Units: K/mm3; Status: F Test: LYMPH #; Value: 1.6; Range: 1.5-4.5; Units: K/mm3; Status: F Test: MONO #; Value: 0.2; Range: 0.0-0.8; Units: K/mm3; Status: F Test: EOS #; Value: 0.1; Range: 0.0-0.50; Units: K/mm3; Status: F Test: BASO #; Value: 0.0; Range: 0.0-0.2; Units: K/mm3; Status: F Test: LARGE UNSTAINED CELL #; Value: 0.1; Range: 0.0-0.4; Units: K/mm3; Status: F Lab Order: Cardiac Injury Profile; SPEC'M 05/31/16 22:26 Test: CPK CREATINE PHOSPHOKINASE; Value: 20; Range: 39-308; Abnormal: Below low normal; Units: U/L; Status: F Test: CK-MB VALUE MASS; Value: 1.0; Range: 0.0-3.6; Units: NG/ML; Status: F Test: MB/CK RELATIVE INDEX; Value: 5.00; Range: < OR =4; Abnormal: Above high normal; Status: F Test Note: ; DIAGNOSIS CRITERIA MMB ng/ml Relative Index (RI) NON-AMI < or = 5 N/A JONAS ZONE > 5 < or = 4 AMI > 5 > 4 Lab Order: Troponin; [facility] 05/31/16 22:26 Test: TROPONIN I; Value: < 0.02; Range: < 0.10; Units: NG/ML; Status: F Test Note: ; Troponin I Reference Interval for [employer] LOCI: 99th Percentile= 0.00-0.045 ng/ml Risk Stratification: <= 0.10 ng/ml Decreased Risk for Adverse Clinical Events. 0.10-1.50 ng/ml Increased Risk for Adverse Clinical Events. Evaluation of additional criterion and/or repeat testing in 2-6 hours is suggested to rule out myocardial damage. >= 1.50 ng/ml Indicative of Myocardial Injury. Lab Order: Lactic Acid (Jonas tube on ice); [facility] 05/31/16 20:37 Test: LACTIC ACID LEVEL, LACTATE; Value: 1.2; Range: 0.4-2.0; Units: MMOL/L; Status: F Lab Order: AMYLASE; [facility] 05/31/16 22:26 Test: AMYLASE; Value: 35; Range: 25-115; Units: U/L; Status: F Lab Order: LIPASE; [facility] 05/31/16 22:26 Test: LIPASE; Value: 85; Range: 73-393; Units: U/L; Status: F Lab Order: LIVER PROFILE; [facility] 05/31/16 22:26 Test: AST/SGOT; Value: 12; Range: 15-37; Abnormal: Below low normal; Units: U/L; Status: F Test: ALT/SGPT; Value: 13; Range: 12-78; Units: U/L; Status: F Test: ALKALINE PHOSPHATASE; Value: 84; Range: 45-117; Units: U/L; Status: F Test: BILIRUBIN,TOTAL; Value: 0.4; Range: 0.2-1.0; Units: MG/DL; Status: F Test: BILIRUBIN,DIRECT; Value: 0.2; Range: 0.0-0.2; Units: MG/DL; Status: F Test: TOTAL PROTEIN; Value: 6.6; Range: 6.4-8.2; Units: GM/DL; Status: F Test: ALBUMIN; Value: 2.6; Range: 3.2-5.2; Abnormal: Below low normal; Units: GM/DL; Status: F Test: ALBUMIN/GLOBULIN RATIO; Value: 0.65; Range: 1.00-1.93; Abnormal: Below low normal; Status: F Radiology Order: EKG-ADULT Test: EKG-ADULT REASON FOR EXAMINATION: Chest Pain; Stationary ECG Study; [facility] - ED; ; Test Date: 2016-05-31; Pat Name: EDWAR COLEMAN Department:; Room: -; Gender: M Identity Management Consultant: RICHAR; : 1965 Requested By: MIKE Guzman; Order Number: [id number] Reading MD: Smith Enamorado; Measurements; Intervals [place]; Rate: 64 P: 68; GA: 189 QRS: -9; QRSD: 96 T: 31; QT: 439; QTc: 456; Interpretive Statements; [employer] RBBB; Electronically Signed On 05-31-2016 23:07:14 EST by Smith Enamorado; Outcome: 22:54 Discharge Assessment: patient administered narcotics - yes. ko2 23:39 Decision to Hospitalize by Provider. mm11 06/01 00:20 Discharge Assessment: Patient awake, alert and oriented x 3. No cognitive and/or ko2 functional deficits noted. Patient verbalized understanding of disposition instructions. patient administered narcotics - yes. Patient was admitted to the hospital or transferred to another facility. The following High Risk Discharge criteria are identified: None. Discharged to Admitted to Floor accompanied by tech, via stretcher, with chart. Condition: stable. No special radiology studies were completed. Property :Personal belongings accompany Pt. 00:21 Admission hand-off: Report Faxed Fax receipt verified by KRISTOFER Miller. ko2 00:29 Patient left the ED. ko2 Signatures: Dispatcher [employer] EDMS Pal Orellana RN RN cz Bancroft, Kristopher, CASE THERAPIST CASE THERAPIST richar5 Krysten Verma RN RN lf1 Mike Martinez DO DO mm11 Nikki Jackson RN RN ld5 Patchen, Erin, CASE THERAPIST CASE THERAPIST Anjana Painting RN RN ko2 Amara Simon Yu 2 Corrections: (The following items were deleted from the chart) 05/31 19:49 19:48 BP 99 / 71; Pulse 74bpm; Resp 18bpm; Pulse Ox 100% RA; Temp 96.6F Oral; Height 5 elp ft. 11 in. Reported; Pain 10; elp 20:03 19:58 Home Meds: multivitamin Oral tab 1 tab daily; cz cz 20:03 19:58 Home Meds: oxycodone 20 mg Oral tab 1 tab every 4 hours; cz cz 20:05 19:52 Presenting complaint: Patient states: he has had chest pain intermittently for 3 cz days since he was last here pain is intermittent not sure when this episode started pt also complains of abdominal pain and inability eating cz 20:33 20:28 AMYLASE+LAB sent. ld5 EDMS 20:33 20:28 LIPASE+LAB sent. ld5 EDMS 20:33 20:28 LIVER PROFILE+LAB sent. ld5 EDMS MTDD
--- NOTE | 2016-06-01 00:30 | EDDOCDS ---
Physician Documentation [facility] Name: Edwar Stokes Age: 51 yrs Sex: Male : 1965 Arrival Date: 05/31/2016 Time: 19:46 Bed 18 Private MD: Cedric Marrero A. Disposition: 05/31/16 23:39 Hospitalization ordered by Em Salinas for Inpatient Admission. Preliminary diagnosis are Other pneumonia, unspecified organism, Patient's intentional underdosing of medication regimen due to financial hardship. - Bed requested for 5 Valdes. - Status is Inpatient Admission. ko2 - Condition is Stable. - Problem is an acute exacerbation. - Symptoms have improved. Historical: - Allergies: No known drug Allergies; - Home Meds: 1. Carafate 100 mg/mL Oral susp 10 mL 4 times per day 2. cyanocobalamin (vitamin B-12) 1,000 mcg oral tab every 3 days 3. mirtazapine 45 mg Oral tab 1 tab bedtime 4. omeprazole 40 mg Oral cpDR 1 cap 2 times per day 5. Oysco-500 500 mg calcium (1,250 mg) oral tab twice a day 6. senna 8.6 mg oral tab 1 tabs twice a day 7. Tab-A-Christian oral tab twice a day 8. vitamin D-3 1000 units daily 9. Xanax 0.5 mg Oral tab daily as needed 10. zinc gluconate 50 mg oral tab daily 11. multivitamin Oral tab 1 tab daily 12. oxycodone 20 mg Oral tab 1 tab every 4 hours has not taken in 24 hours - PMHx: c diff; chronic abdominal pain; esophageal strictures; GERD; opiate abuse; opiate dependency; - PSHx: Appendectomy; Hernia repair- Umbilical; Gastric Bypass; G-Tube Insertion; Cholecystectomy; back surgery; repair right tendon repair; - Social history: Smoking status: Patient uses tobacco products, current every day smoker. No barriers to communication noted, The patient speaks fluent Divehi, Speaks appropriately for age. - Family history: Not pertinent. - : The pt / caregiver states he / she is not on anticoagulants. Home medication list is obtained from [employer] import data. - Exposure Risk Screening:: None identified. Vital Signs: 05/31 19:48 BP 99 / 71; Pulse 74; Resp 18; Temp 96.6(O); Pulse Ox 100% on R/A; Weight 54.43 kg / elp 120 lbs (R); Height 5 ft. 11 in. (180.34 cm) (R); Pain 10/10; 20:08 BP 105 / 72 (auto/); ko2 20:08 Pulse 64 MON; Pulse Ox 99% ; ko2 20:23 BP 105 / 76 (auto/); ko2 20:23 Pulse 70 MON; Pulse Ox 98% ; ko2 20:38 BP 101 / 73 (auto/); ko2 20:38 Pulse 62 MON; Pulse Ox 98% ; ko2 20:53 BP 100 / 71 (auto/); ko2 20:53 Pulse 60 MON; Pulse Ox 100% ; ko2 21:22 Pulse 56 MON; Pulse Ox 98% ; ko2 21:23 BP 89 / 61 (auto/); ko2 21:38 BP 96 / 66 (auto/); ko2 21:38 Pulse 60 MON; Pulse Ox 97% ; ko2 21:53 BP 94 / 67 (auto/); lf1 21:53 Pulse 58 MON; Pulse Ox 98% ; lf1 22:08 BP 95 / 65 (auto/); ko2 22:08 Pulse 58 MON; Pulse Ox 98% ; ko2 22:23 BP 95 / 66 (auto/); ko2 22:23 Pulse 56 MON; Pulse Ox 97% ; ko2 22:38 BP 98 / 68 (auto/); ko2 22:38 Pulse 58 MON; Pulse Ox 97% ; ko2 23:38 BP 100 / 68 (auto/); Pulse 62; Resp 18; Temp 97; Pulse Ox 96% ; Pain 8/10; ko2 19:48 Body Mass Index 16.74 (54.43 kg, 180.34 cm) elp MDM: 19:52 ECG WITH READING ER PHYS+CARDIAG ordered. EDMS 20:27 Ondansetron 4 mg IVP once ordered. mm11 20:27 Commercial Litigation Attorney/Pulse Ox/q 30 min VS ordered. mm11 20:27 IV Saline Lock ordered. mm11 20:27 Rhythm Strip to chart ordered. mm11 20:27 Undress patient appropriately for examination ordered. mm11 20:27 -Blood Culture (Adults Only), peripheral from different site, or from device/port/PICC mm11 etc. if present ordered. 20:27 Dilaudid - HYDROmorphone 0.5 mg IVP once ordered. mm11 20:28 Basic Metabolic Profile Ordered. EDMS 20:28 CBC with Diff Ordered. EDMS 20:28 Cardiac Injury Profile Ordered. EDMS 20:28 Troponin Ordered. EDMS 20:28 Lactic Acid (Jonas tube on ice) Ordered. EDMS 20:28 -Blood Culture Ordered. EDMS 20:28 Chest, 2 View (pa\E\lat) Ordered. EDMS 20:28 -Blood Culture (Adults Only), peripheral from different site, or from device/port/PICC ml3 etc. if present complete. 20:29 NOTHING BY MOUTH+DIET ordered. EDMS 20:30 BLOOD CULTURES Ordered. EDMS 20:34 AMYLASE Ordered. EDMS 20:34 LIPASE Ordered. EDMS 20:34 LIVER PROFILE Ordered. EDMS 21:47 CBC with Diff Reviewed. mm11 21:47 Lactic Acid (Jonas tube on ice) Reviewed. mm11 21:54 Financial registration complete. gjb 22:12 Dilaudid - HYDROmorphone 0.5 mg IVP once ordered. mm11 23:08 Basic Metabolic Profile Reviewed. mm11 23:08 Cardiac Injury Profile Reviewed. mm11 23:08 LIVER PROFILE Reviewed. mm11 23:08 Troponin Reviewed. mm11 23:08 AMYLASE Reviewed. mm11 23:08 LIPASE Reviewed. mm11 23:36 levofloxacin 750 mg IVPB once over 90 mins ordered. mm11 23:37 BED REQUEST+ADM ordered. EDMS 23:46 Admission / Observation Status ordered. EDMS 23:47 COMPLETE BLOOD COUNT Ordered. EDMS 23:47 BASIC METABOLIC PROFILE Ordered. EDMS 23:47 GASTROINTESTINAL (GI) PANEL Ordered. EDMS 23:50 C REACTIVE PROTEIN QUANTITATIV Ordered. EDMS 23:55 DRUG EVAL TOXICOLOGY ED ONLY Ordered. EDMS 23:55 [facility] Payment Agreement was scanned into [employer] and attached to record. gjb 23:59 SPUTUM CULTURE AND GRAM STAIN Ordered. EDMS 06/01 00:25 LEGIONELLA ANTIGEN URINE Ordered. EDMS 00:25 URINE STREP PNEUMONIAE ANTIGEN Ordered. EDMS 00:25 INFLUENZA A&B RAPID ANTIGEN Ordered. EDMS Administered Medications: 05/31 21:01 Drug: Ondansetron 4 mg [ondansetron HCl 2 mg/mL intravenous solution (2 mL)] Route: ko2 IVP; Site: left antecubital; 21:01 Drug: Dilaudid - HYDROmorphone 0.5 mg [hydromorphone 1 mg/mL injection syringe (0.5 ko2 mL)] Route: IVP; Site: left antecubital; 22:28 Drug: Dilaudid - HYDROmorphone 0.5 mg [hydromorphone 1 mg/mL injection syringe (0.5 ko2 mL)] Route: IVP; Site: left antecubital; 23:47 Drug: levofloxacin 750 mg [levofloxacin 750 mg/150 mL in 5 % dextrose intravenous ko2 piggyback] Route: IVPB; Infused Over: 90 mins; Site: left antecubital; Signatures: Dispatcher [employer] EDPal Gomez RN RN cz Lopresti, Mary-Elizabeth, Tax [employer] ml3 Loi Martinez, DO mm11 Anjana Corbin RN RN ko2 Amara Simon The chart was reviewed and I authenticate all verbal orders and agree with the evaluation and treatment provided.Corrections: (The following items were deleted from the chart) 20:03 19:58 Home Meds: multivitamin Oral tab 1 tab daily; cz cz 20:03 19:58 Home Meds: oxycodone 20 mg Oral tab 1 tab every 4 hours; cz cz 20:33 20:28 AMYLASE+LAB ordered. EDMS EDMS 20:33 20:28 LIPASE+LAB ordered. EDMS EDMS 20:33 20:28 LIVER PROFILE+LAB ordered. EDMS EDMS 23:47 23:45 GASTROINTESTINAL (GI) PANEL ordered. EDMS EDMS Attachments: 23:55 [facility] Payment Agreement gjb MTDD
[2016-06-01 00:45] VITALS: BP 104/71
[2016-06-01 02:12] LABS: PERCENT SATURATION 15.4 % (19.7-37.4); TOTAL IRON BINDING CAPACITY 208 UG/DL (250-450)
[2016-06-01] MEDS: SUCRALFATE SUSP 1GM/10ML UD PO SCH ×5 (02:22→21:07)
[2016-06-01] MEDS: cefTRIAXone SOD 2 GM in D5W MINI-BAG PLUS 50 ML IV SCH ×2 (02:23→15:55)
[2016-06-01] MEDS: NS 1,000 ML IV SCH ×2 (02:23→13:05)
[2016-06-01] MEDS: oxyCODONE 5MG TAB PO SCH ×6 (02:23→21:10)
[2016-06-01] MEDS: AZITHROMYCIN INJ 500 MG, VIAL MATE ADAPTER 1 EACH in D5W 250 ML IV SCH (03:08)
[2016-06-01] MEDS: HEPARIN SOD (PORCINE) 5000 UNITS/ML VIAL SC SCH ×3 (05:17→21:07)
--- NOTE | 2016-06-01 05:55 | HPE ---
DATE OF ADMISSION: 05/31/2016 PRIMARY CARE PHYSICIAN: Dr. Marrero. CHIEF COMPLAINT: Diarrhea, chest pain, cough. HISTORY OF PRESENT ILLNESS: Mr. Sotkes is a 51-year-old male with multiple past medical history, who presented due to experiencing diarrhea, chest pain, as well as coughing for the past week and a half. Patient has a history of G-tube due to not tolerating oral. Patient expressed that he noticed from since week and a half ago he has started having diarrhea. Patient expressed that it is about six or seven episodes of diarrhea every day. However, patient expressed that recently patient noticed that his stool became forming and became more solid. Patient also noticed that he began having cough with yellow and green sputum production. Patient denies having fever; however, patient has chills and night sweats. Patient denies sick contact. Patient states that patient has chest pain on and off for a long time. However, patient expressed that he noticed that his chest pain has become increased and wakes him up for a week and a half. Patient visited the emergency room (ER) 3 days ago when he was discharged with antibiotic; however, patient expressed that he could not pay for antibiotic because of limited budget and he returned again since he continued to have the symptoms. ALLERGIES: No known allergies. HOME MEDICATIONS: - vitamin D3 2000 units by mouth daily - cyanocobalamin 1000 mcg by mouth every 3 days - multivitamin one tablet by mouth daily - omeprazole 40 mg by mouth twice a day - oxycodone 20 mg by mouth every 4 hours - Os-Madan 500 mg by mouth twice a day - senna laxative one tablet by mouth twice a day - sucralfate 10 mL by mouth four times a day - Tab-A-Christian one tablet by mouth twice a day - zinc gluconate 50 mg by mouth daily PAST MEDICAL HISTORY: 1. Gastric bypass. 2. Depression/anxiety. 3. Esophageal stricture. 4. Esophageal reflux disease. 5. Tobacco abuse. 6. Chronic back pain. 7. Opiate abuse. 8. Opiate dependency. PAST SURGICAL HISTORY: 1. Right arm tendon repair. 2. Appendectomy. 3. Back surgery. 4. Gastric bypass surgery. 5. Cholecystectomy. 6. Right hand surgery. SOCIAL HISTORY: Patient expressed that he smoked about 1/2 a pack for the past 25 years. Patient smoked marijuana and the last usage of marijuana was about 2- 3 days ago. Patient expressed that he tried to get medicinal marijuana for increasing appetite. Patient denies alcohol abuse. Patient lives with his and his son. FAMILY HISTORY: Patient has three brothers, three sisters. One of the sisters has a brain aneurysm. Patient's father due to diabetes. Patient's mother due to breast cancer. REVIEW OF SYSTEMS: GENERAL: Patient denies fever, chills, night sweats; however, patient expressed that he believes he has lost some weight. HEENT: Patient denies acute vision or hearing changes. Patient also denies sinusitis. Patient denies problem with chewing food; however, patient expressed that he cannot hold anything down due to esophageal stricture. NECK: Patient denies lumps, bumps or decreased range of motion of his neck. HEART: Patient expressed that he has some chest pain, which is located on the left side of his chest; however, patient denies palpitations, racing or skipping heartbeat. LUNGS: Patient denies shortness of breath, however, patient expressed that he has been coughing with the production of yellowish sputum. ABDOMEN: Patient expressed abdominal pain mostly on the mid abdominal area. Patient has a G-tube insertion. Patient also expressed that he has been having diarrhea, multiple episodes a day without hematochezia or melena. NEUROLOGIC: Patient denies a history of transient ischemic attack (TIA), CVA, or seizure type activities. PHYSICAL EXAMINATION: VITAL SIGNS: Blood pressure 99/71, pulse 74, respiratory rate 18, temperature 96.6, pulse oximetry 100 on room air. Weight 54.43 kg, height 180.34 cm, body mass index (BMI) 16.74. GENERAL APPEARANCE: The patient was lying in bed in no acute distress. Patient was awake, alert, and oriented to time, place and person. HEENT: Normocephalic, atraumatic. Pupils are equal. Oral mucosa is moist. NECK: Soft, supple. No lymphadenopathy. No thyromegaly. HEART: Regular rate and rhythm. Normal S1, S2. ABDOMEN: Soft, mild tenderness to palpation mostly in the mid abdominal area. G-tube insertion area was clean. No drainage, erythema, or swelling was noticed. Positive bowel sounds in all quadrants. EXTREMITIES: No lower extremity edema, +2 pulses in both lower extremities. NEUROLOGICAL: Cranial nerves II-XII intact. Patient has lost sensation in both lower extremities, in both feet bilaterally. LABORATORY DATA: White blood cells 4.7, red blood cells 3.63, hemoglobin 11.5, hematocrit 34.1, MCV 94, MCH 31.6, MCHC 33.6, RDW 13.8, platelet count 328. Neutrophil percentage 57.5, lymphocyte percentage 33.7, monocyte percentage 4.6, eosinophil percentage 1.4, basophil percentage 0.4, leukocyte percentage 2.5. Sodium 145, potassium 3.5, chloride 108, carbon dioxide 29, anion gap 8, BUN 13, creatinine 0.54, glomerular filtration rate more than 60, fasting glucose 75, lactic acid 1.2, calcium 7.9, iron pending, TIBC pending, transferrin percentage saturation pending. Total bilirubin 0.4, direct bilirubin 0.2, AST 14, ALT 13, alkaline phosphatase 84, total creatinine kinase 20, CK-MB 1, CK-MB relative index 5, troponin I less than 0.02, total protein 6.6, albumin 2.6, amylase 35, lipase 85, vitamin B12 pending, folic acid pending. ASSESSMENT AND PLAN: 1. Community-acquired pneumonia. Patient had a CT of the chest with contrast, which was done on 05/29/2016, which shows bilateral multifocal airspace consolidation suggestive of bronchopneumonia. We have ordered chest x-ray. Result is pending at this time. Patient was discharged home with antibiotic; however, patient expressed that he could not afford antibiotic and he came back because his symptoms did not get better. Patient did not use antibiotic at home. At this time, we started patient on ceftriaxone and azithromycin. Also, I have ordered a sputum culture and gram stain, as well as influenza A and B rapid antigen and Legionella and urine Streptococcus pneumoniae. This result is pending at this time. Blood culture is pending at this time as well. We will continue to monitor patient for any abnormal symptoms. Also, I have ordered Acapella, as well as incentive spirometry. 2. Gastroesophageal reflux disease (GERD). We will continue patient on Carafate, as well as omeprazole 40 mg by mouth twice a day. 3. Vitamin B12 deficiency. We will continue patient on cyanocobalamin 1000 mcg by mouth every 72 hours. 4. Vitamin D deficiency. We will continue patient on vitamin D 2000 units by mouth daily. 5. Complication of gastric bypass surgery. This is a chronic issue. Patient has G-tube. Patient is on Jevity due to not being able to tolerate oral diet. Due to having gastric bypass, patient is on multivitamin; however, we have ordered level of vitamin B12, as well as folic acid and iron. The result is pending at this time. 6. Anemia. We have ordered iron studies. Result is pending at this time. However, at this time, patient's hemoglobin and hematocrit are stable. 7. Tobacco abuse. Patient has a history of tobacco abuse. At this time, patient is stable. If patient requests, we well start patient on Nicoderm patch. 8. Major depression disorder, recurrent, unspecific and anxiety. Patient has been prescribed psychotropic (Remeron); however, patient is not compliant. 9. Deep venous thrombosis (DVT) prophylaxis. Patient is on heparin 5000 units subcutaneously every 8 hours. 10. Diarrhea. Patient expressed that he has been having diarrhea multiple episodes a day for the past week and a half. Patient has been on senna; however , we have stopped this medication. Also, we have ordered a gastrointestinal (GI) panel. Result is pending at this time. We have started the patient on intravenous (IV) fluid at a rate of 80 mL/h. 11. Chronic back pain. Patient has been on oxycodone 20 mg every 4 hours by mouth started by primary care physician. 12. History of opiate abuse. This is a chronic issue. My preceptor for this patient encounter was Dr. Em Salinas. The preceptor was physically present in the building during the encounter and was fully available as needed. All aspects of the patient interview, examination, medical decision making process, and medical care plan development were reviewed and approved by the preceptor. The preceptor is aware and concurs with the plan as stated in the body of this note and will attest to such by his/her co-signature. MINDA
[2016-06-01 06:00] VITALS: BP 98/63
[2016-06-01 07:04] LABS: MEAN CORPUSCULAR HEMOGLOBIN 31.2 pg (27.0-33.0); MEAN CORPUSCULAR HGB CONC 33.3 g/dl (32.0-36.5); MEAN CORPUSCULAR VOLUME 93.7 fl (80.0-96.0); RED CELL DISTRIBUTION WIDTH 13.6 % (11.5-14.5); WHITE BLOOD COUNT 4.5 K/mm3 (4.0-10.0)
[2016-06-01 07:17] LABS: ANION GAP 7 MEQ/L (8-16); BLOOD UREA NITROGEN 12 MG/DL (7-18); CALCIUM LEVEL 8.1 MG/DL (8.5-10.1); CARBON DIOXIDE LEVEL 27 MEQ/L (21-32); CHLORIDE LEVEL 107 MEQ/L (98-107); CREATININE FOR GFR 0.53 MG/DL (0.70-1.30); GLOMERULAR FILTRATION RATE > 60.0 (>56); GLUCOSE, FASTING 83 MG/DL (70-105); POTASSIUM SERUM 3.5 MEQ/L (3.5-5.1); SODIUM LEVEL 141 MEQ/L (136-145)
[2016-06-01] MEDS ORDERED: MULTIVITAMINS/MINERALS THERAP 1 TAB PO SCH (09:00)
[2016-06-01] MEDS ORDERED: VITAMIN D 1,000 INTERNATIONAL UNITS TABLET PO SCH (09:00)
[2016-06-01] MEDS ORDERED: CYANOCOBALAMIN 500 MCG TAB PO SCH (09:00)
[2016-06-01] MEDS ORDERED: SENNA 8.6 MG TAB (SENOKOT) PO SCH (09:00)
[2016-06-01] MEDS: OYSTER SHELL CALCIUM 500 MG TAB PO SCH ×2 (09:11→21:07)
[2016-06-01] MEDS: OMEPRAZOLE 20 MG CAP PO SCH ×2 (09:12→21:07)
--- NOTE | 2016-06-01 09:56 | REP ---
Chest x-ray: Two views. History: Chest pain. Comparison chest x-ray May 28, 2016. Comparison chest CT May 29, 2016. Findings: There is increased parenchymal opacity overlying the spine at one of the lung bases on the lateral radiograph today. This is probably in the left lower lobe. There are clips in the upper abdomen on the right. Lung hernandez are otherwise clear. Pleural angles are sharp. Heart size is normal. Impression: Left lower lobe infiltrate similar to chest CT findings from May 29, 2016. Signed by Steven Fontaine MD 06/01/2016 10:24 A
[2016-06-01 14:00] VITALS: BP 97/68
[2016-06-01 22:00] VITALS: BP 98/66
--- NOTE | 2016-06-01 22:49 | IPNPDOC ---
Assessment/Plan Date Seen The patient was seen on 06/01/16. Problems Problems: (1) Pneumonia Status: Acute Problem Text: pt was recently discharged on antibiotics but didn't fill his script continue iv medication (2) Diarrhea Status: Resolved (3) Gastrostomy in place Status: Chronic Response to Treatment: Stable (4) Tobacco abuse Status: Chronic Plan / VTE VTE Prophylaxis Ordered?: Yes Subjective Review of Systems CC/HPI The patient is a 51-year-old male admitted with a reason for visit of Pneumonia. General: Reports: Fatigue Constitutional: Reports: Weakness, Denies: Chills, Fever, Malaise, Night Sweats Pulmonary: Denies: Cough, Dyspnea Objective Physical Examination General Exam: Positive: No Acute Distress ENT Exam: Positive: Atraumatic, Mucous membr. moist/pink, Pharynx Normal Chest Exam: Positive: Clear to auscultation, Normal air movement Heart Exam: Positive: Normal S1, Normal S2, Rate Normal, Regular Rhythm, Negative: Murmurs, Rubs Vital Signs/I&O Vital Signs Date Time Temp Pulse Resp B/P Pulse Ox O2 Delivery O2 Flow Rate FiO2 06/01/16 21:44 20 06/01/16 14:00 97.2 50 97/68 96 Room Air I&O- Last 24 Hours up to 6 AM 06/01/16 06:00 Intake Total 465 ml Output Total 0 ml Balance 465 ml Laboratory Data Labs 24H Laboratory Tests 2 06/01/16 06:34: Anion Gap 7L, C-Reactive Protein, Quantitative < 0.30, Blood Urea Nitrogen 12, Creatinine 0.53L, Sodium Level 141, Potassium Level 3.5, Chloride Level 107, Carbon Dioxide Level 27, Calcium Level 8.1L, Total Creatine Kinase 27L, Creatine Kinase MB < 1.0, Creatine Kinase MB Relative Index , Glomerular Filtration Rate > 60.0, Troponin I < 0.02 06/01/16 14:16: Total Creatine Kinase 20L, Creatine Kinase MB 1.0, Creatine Kinase MB Relative Index 5.00H, Troponin I < 0.02 CBC/BMP Laboratory Tests 06/01/16 06:33 Red Blood Count 3.30 L, Mean Corpuscular Volume 93.7, Mean Corpuscular Hemoglobin 31.2, Mean Corpuscular Hemoglobin Concent 33.3, Red Cell Distribution Width 13.6 06/01/16 06:34 Calcium Level 8.1 L, Total Creatine Kinase 27 L Microbiology Microbiology 05/31/16 Blood Culture - Preliminary, Resulted No growth after 24 hours . All specim... 05/31/16 Blood Culture - Preliminary, Resulted No growth after 24 hours . All specim... ALFRED CHAIDEZ DO Jun 01, 2016 22:49
[2016-06-02] MEDS: oxyCODONE 5MG TAB PO SCH ×2 (01:08→05:02)
[2016-06-02] MEDS: cefTRIAXone SOD 2 GM in D5W MINI-BAG PLUS 50 ML IV SCH (01:08)
[2016-06-02] MEDS: NS 1,000 ML IV SCH (01:08)
[2016-06-02] MEDS: AZITHROMYCIN INJ 500 MG, VIAL MATE ADAPTER 1 EACH in D5W 250 ML IV SCH (02:05)
[2016-06-02] MEDS: HEPARIN SOD (PORCINE) 5000 UNITS/ML VIAL SC SCH (05:02)
[2016-06-02 06:00] VITALS: BP 107/77
[2016-06-02 07:23] LABS: MEAN CORPUSCULAR HEMOGLOBIN 30.9 pg (27.0-33.0); MEAN CORPUSCULAR HGB CONC 33.4 g/dl (32.0-36.5); MEAN CORPUSCULAR VOLUME 92.6 fl (80.0-96.0); RED CELL DISTRIBUTION WIDTH 14.6 % (11.5-14.5); WHITE BLOOD COUNT 3.9 K/mm3 (4.0-10.0)
[2016-06-02 07:46] LABS: ANION GAP 7 MEQ/L (8-16); BLOOD UREA NITROGEN 10 MG/DL (7-18); CALCIUM LEVEL 8.3 MG/DL (8.5-10.1); CARBON DIOXIDE LEVEL 29 MEQ/L (21-32); CHLORIDE LEVEL 106 MEQ/L (98-107); CREATININE FOR GFR 0.62 MG/DL (0.70-1.30); GLOMERULAR FILTRATION RATE > 60.0 (>56); GLUCOSE, FASTING 81 MG/DL (70-105); POTASSIUM SERUM 3.8 MEQ/L (3.5-5.1); SODIUM LEVEL 142 MEQ/L (136-145)
[2016-06-02] MEDS ORDERED: ZITHTAB PO (08:04)
[2016-06-02 10:46] LABS: FOLATE 10.6 NG/ML (>5.4)
--- NOTE | 2016-06-03 12:09 | EDDOCDS ---
Physician Documentation [facility] Name: Edwar Stokes Age: 51 yrs Sex: Male : 1965 Arrival Date: 05/31/2016 Time: 19:46 Bed 18 Private MD: Cedric Marrero A. Disposition: 05/31/16 23:39 Hospitalization ordered by Em Salinas for Inpatient Admission. Preliminary diagnosis are Other pneumonia, unspecified organism, Patient's intentional underdosing of medication regimen due to financial hardship. - Bed requested for 5 Valdes. - Status is Inpatient Admission. ko2 - Condition is Stable. - Problem is an acute exacerbation. - Symptoms have improved. Historical: - Allergies: No known drug Allergies; - Home Meds: 1. Carafate 100 mg/mL Oral susp 10 mL 4 times per day 2. cyanocobalamin (vitamin B-12) 1,000 mcg oral tab every 3 days 3. mirtazapine 45 mg Oral tab 1 tab bedtime 4. omeprazole 40 mg Oral cpDR 1 cap 2 times per day 5. Oysco-500 500 mg calcium (1,250 mg) oral tab twice a day 6. senna 8.6 mg oral tab 1 tabs twice a day 7. Tab-A-Christian oral tab twice a day 8. vitamin D-3 1000 units daily 9. Xanax 0.5 mg Oral tab daily as needed 10. zinc gluconate 50 mg oral tab daily 11. multivitamin Oral tab 1 tab daily 12. oxycodone 20 mg Oral tab 1 tab every 4 hours has not taken in 24 hours - PMHx: c diff; chronic abdominal pain; esophageal strictures; GERD; opiate abuse; opiate dependency; - PSHx: Appendectomy; Hernia repair- Umbilical; Gastric Bypass; G-Tube Insertion; Cholecystectomy; back surgery; repair right tendon repair; - Social history: Smoking status: Patient uses tobacco products, current every day smoker. No barriers to communication noted, The patient speaks fluent Italian, Speaks appropriately for age. - Family history: Not pertinent. - : The pt / caregiver states he / she is not on anticoagulants. Home medication list is obtained from [employer] import data. - Exposure Risk Screening:: None identified. Vital Signs: 05/31 19:48 BP 99 / 71; Pulse 74; Resp 18; Temp 96.6(O); Pulse Ox 100% on R/A; Weight 54.43 kg / elp 120 lbs (R); Height 5 ft. 11 in. (180.34 cm) (R); Pain 10/10; 20:08 BP 105 / 72 (auto/); ko2 20:08 Pulse 64 MON; Pulse Ox 99% ; ko2 20:23 BP 105 / 76 (auto/); ko2 20:23 Pulse 70 MON; Pulse Ox 98% ; ko2 20:38 BP 101 / 73 (auto/); ko2 20:38 Pulse 62 MON; Pulse Ox 98% ; ko2 20:53 BP 100 / 71 (auto/); ko2 20:53 Pulse 60 MON; Pulse Ox 100% ; ko2 21:22 Pulse 56 MON; Pulse Ox 98% ; ko2 21:23 BP 89 / 61 (auto/); ko2 21:38 BP 96 / 66 (auto/); ko2 21:38 Pulse 60 MON; Pulse Ox 97% ; ko2 21:53 BP 94 / 67 (auto/); lf1 21:53 Pulse 58 MON; Pulse Ox 98% ; lf1 22:08 BP 95 / 65 (auto/); ko2 22:08 Pulse 58 MON; Pulse Ox 98% ; ko2 22:23 BP 95 / 66 (auto/); ko2 22:23 Pulse 56 MON; Pulse Ox 97% ; ko2 22:38 BP 98 / 68 (auto/); ko2 22:38 Pulse 58 MON; Pulse Ox 97% ; ko2 23:38 BP 100 / 68 (auto/); Pulse 62; Resp 18; Temp 97; Pulse Ox 96% ; Pain 8/10; ko2 19:48 Body Mass Index 16.74 (54.43 kg, 180.34 cm) elp MDM: 19:52 ECG WITH READING ER PHYS+CARDIAG ordered. EDMS 20:27 Ondansetron 4 mg IVP once ordered. mm11 20:27 Certified Rehabilitation Counselor/Pulse Ox/q 30 min VS ordered. mm11 20:27 IV Saline Lock ordered. mm11 20:27 Rhythm Strip to chart ordered. mm11 20:27 Undress patient appropriately for examination ordered. mm11 20:27 -Blood Culture (Adults Only), peripheral from different site, or from device/port/PICC mm11 etc. if present ordered. 20:27 Dilaudid - HYDROmorphone 0.5 mg IVP once ordered. mm11 20:28 Basic Metabolic Profile Ordered. EDMS 20:28 CBC with Diff Ordered. EDMS 20:28 Cardiac Injury Profile Ordered. EDMS 20:28 Troponin Ordered. EDMS 20:28 Lactic Acid (Jonas tube on ice) Ordered. EDMS 20:28 -Blood Culture Ordered. EDMS 20:28 Chest, 2 View (pa\E\lat) Ordered. EDMS 20:28 -Blood Culture (Adults Only), peripheral from different site, or from device/port/PICC ml3 etc. if present complete. 20:29 NOTHING BY MOUTH+DIET ordered. EDMS 20:30 BLOOD CULTURES Ordered. EDMS 20:34 AMYLASE Ordered. EDMS 20:34 LIPASE Ordered. EDMS 20:34 LIVER PROFILE Ordered. EDMS 21:47 CBC with Diff Reviewed. mm11 21:47 Lactic Acid (Jonas tube on ice) Reviewed. mm11 21:54 Financial registration complete. gjb 22:12 Dilaudid - HYDROmorphone 0.5 mg IVP once ordered. mm11 23:08 Basic Metabolic Profile Reviewed. mm11 23:08 Cardiac Injury Profile Reviewed. mm11 23:08 LIVER PROFILE Reviewed. mm11 23:08 Troponin Reviewed. mm11 23:08 AMYLASE Reviewed. mm11 23:08 LIPASE Reviewed. mm11 23:36 levofloxacin 750 mg IVPB once over 90 mins ordered. mm11 23:37 BED REQUEST+ADM ordered. EDMS 23:46 Admission / Observation Status ordered. EDMS 23:47 COMPLETE BLOOD COUNT Ordered. EDMS 23:47 BASIC METABOLIC PROFILE Ordered. EDMS 23:47 GASTROINTESTINAL (GI) PANEL Ordered. EDMS 23:50 C REACTIVE PROTEIN QUANTITATIV Ordered. EDMS 23:55 DRUG EVAL TOXICOLOGY ED ONLY Ordered. EDMS 23:55 [facility] Payment Agreement was scanned into [employer] and attached to record. gjb 23:59 SPUTUM CULTURE AND GRAM STAIN Ordered. EDMS 06/01 00:25 LEGIONELLA ANTIGEN URINE Ordered. EDMS 00:25 URINE STREP PNEUMONIAE ANTIGEN Ordered. EDMS 00:25 INFLUENZA A&B RAPID ANTIGEN Ordered. EDMS 07:57 T-Sheet-- Draft Copy was scanned into [employer] and attached to record. [facility] Administered Medications: 05/31 21:01 Drug: Ondansetron 4 mg [ondansetron HCl 2 mg/mL intravenous solution (2 mL)] Route: ko2 IVP; Site: left antecubital; 21:01 Drug: Dilaudid - HYDROmorphone 0.5 mg [hydromorphone 1 mg/mL injection syringe (0.5 ko2 mL)] Route: IVP; Site: left antecubital; 22:28 Drug: Dilaudid - HYDROmorphone 0.5 mg [hydromorphone 1 mg/mL injection syringe (0.5 ko2 mL)] Route: IVP; Site: left antecubital; 23:47 Drug: levofloxacin 750 mg [levofloxacin 750 mg/150 mL in 5 % dextrose intravenous ko2 piggyback] Route: IVPB; Infused Over: 90 mins; Site: left antecubital; Signatures: Dispatcher [employer] EDPal Gomez RN RN cz Lopresti, Mary-Elizabeth, [employer] [facility] ml3 Loi Martinez DO DO mm11 Anjana Corbin RN RN ko2 Amara Simon [facility] The chart was reviewed and I authenticate all verbal orders and agree with the evaluation and treatment provided.Corrections: (The following items were deleted from the chart) 20:03 19:58 Home Meds: multivitamin Oral tab 1 tab daily; cz cz 20:03 19:58 Home Meds: oxycodone 20 mg Oral tab 1 tab every 4 hours; cz cz 20:33 20:28 AMYLASE+LAB ordered. EDMS EDMS 20:33 20:28 LIPASE+LAB ordered. EDMS EDMS 20:33 20:28 LIVER PROFILE+LAB ordered. EDMS EDMS 23:47 23:45 GASTROINTESTINAL (GI) PANEL ordered. EDMS EDMS Attachments: 23:55 [facility] Payment Agreement [email or web address] 06/01 07:57 T-Sheet-- Draft Copy [facility] Chart Complete MTDD
--- NOTE | 2016-06-03 12:09 | EDDOCDS ---
Physician Documentation [facility] Name: Edwar Stokes Age: 51 yrs Sex: Male : 1965 Arrival Date: 05/31/2016 Time: 19:46 Bed 18 Private MD: Cedric Marrero A. Disposition: 05/31/16 23:39 Hospitalization ordered by Em Salinas for Inpatient Admission. Preliminary diagnosis are Other pneumonia, unspecified organism, Patient's intentional underdosing of medication regimen due to financial hardship. - Bed requested for 5 Valdes. - Status is Inpatient Admission. ko2 - Condition is Stable. - Problem is an acute exacerbation. - Symptoms have improved. Historical: - Allergies: No known drug Allergies; - Home Meds: 1. Carafate 100 mg/mL Oral susp 10 mL 4 times per day 2. cyanocobalamin (vitamin B-12) 1,000 mcg oral tab every 3 days 3. mirtazapine 45 mg Oral tab 1 tab bedtime 4. omeprazole 40 mg Oral cpDR 1 cap 2 times per day 5. Oysco-500 500 mg calcium (1,250 mg) oral tab twice a day 6. senna 8.6 mg oral tab 1 tabs twice a day 7. Tab-A-Christian oral tab twice a day 8. vitamin D-3 1000 units daily 9. Xanax 0.5 mg Oral tab daily as needed 10. zinc gluconate 50 mg oral tab daily 11. multivitamin Oral tab 1 tab daily 12. oxycodone 20 mg Oral tab 1 tab every 4 hours has not taken in 24 hours - PMHx: c diff; chronic abdominal pain; esophageal strictures; GERD; opiate abuse; opiate dependency; - PSHx: Appendectomy; Hernia repair- Umbilical; Gastric Bypass; G-Tube Insertion; Cholecystectomy; back surgery; repair right tendon repair; - Social history: Smoking status: Patient uses tobacco products, current every day smoker. No barriers to communication noted, The patient speaks fluent Pashto, Speaks appropriately for age. - Family history: Not pertinent. - : The pt / caregiver states he / she is not on anticoagulants. Home medication list is obtained from [employer] import data. - Exposure Risk Screening:: None identified. Vital Signs: 05/31 19:48 BP 99 / 71; Pulse 74; Resp 18; Temp 96.6(O); Pulse Ox 100% on R/A; Weight 54.43 kg / elp 120 lbs (R); Height 5 ft. 11 in. (180.34 cm) (R); Pain 10/10; 20:08 BP 105 / 72 (auto/); ko2 20:08 Pulse 64 MON; Pulse Ox 99% ; ko2 20:23 BP 105 / 76 (auto/); ko2 20:23 Pulse 70 MON; Pulse Ox 98% ; ko2 20:38 BP 101 / 73 (auto/); ko2 20:38 Pulse 62 MON; Pulse Ox 98% ; ko2 20:53 BP 100 / 71 (auto/); ko2 20:53 Pulse 60 MON; Pulse Ox 100% ; ko2 21:22 Pulse 56 MON; Pulse Ox 98% ; ko2 21:23 BP 89 / 61 (auto/); ko2 21:38 BP 96 / 66 (auto/); ko2 21:38 Pulse 60 MON; Pulse Ox 97% ; ko2 21:53 BP 94 / 67 (auto/); lf1 21:53 Pulse 58 MON; Pulse Ox 98% ; lf1 22:08 BP 95 / 65 (auto/); ko2 22:08 Pulse 58 MON; Pulse Ox 98% ; ko2 22:23 BP 95 / 66 (auto/); ko2 22:23 Pulse 56 MON; Pulse Ox 97% ; ko2 22:38 BP 98 / 68 (auto/); ko2 22:38 Pulse 58 MON; Pulse Ox 97% ; ko2 23:38 BP 100 / 68 (auto/); Pulse 62; Resp 18; Temp 97; Pulse Ox 96% ; Pain 8/10; ko2 19:48 Body Mass Index 16.74 (54.43 kg, 180.34 cm) elp MDM: 19:52 ECG WITH READING ER PHYS+CARDIAG ordered. EDMS 20:27 Ondansetron 4 mg IVP once ordered. mm11 20:27 Mortician Supplies Sales Representative/Pulse Ox/q 30 min VS ordered. mm11 20:27 IV Saline Lock ordered. mm11 20:27 Rhythm Strip to chart ordered. mm11 20:27 Undress patient appropriately for examination ordered. mm11 20:27 -Blood Culture (Adults Only), peripheral from different site, or from device/port/PICC mm11 etc. if present ordered. 20:27 Dilaudid - HYDROmorphone 0.5 mg IVP once ordered. mm11 20:28 Basic Metabolic Profile Ordered. EDMS 20:28 CBC with Diff Ordered. EDMS 20:28 Cardiac Injury Profile Ordered. EDMS 20:28 Troponin Ordered. EDMS 20:28 Lactic Acid (Jonas tube on ice) Ordered. EDMS 20:28 -Blood Culture Ordered. EDMS 20:28 Chest, 2 View (pa\E\lat) Ordered. EDMS 20:28 -Blood Culture (Adults Only), peripheral from different site, or from device/port/PICC ml3 etc. if present complete. 20:29 NOTHING BY MOUTH+DIET ordered. EDMS 20:30 BLOOD CULTURES Ordered. EDMS 20:34 AMYLASE Ordered. EDMS 20:34 LIPASE Ordered. EDMS 20:34 LIVER PROFILE Ordered. EDMS 21:47 CBC with Diff Reviewed. mm11 21:47 Lactic Acid (Jonas tube on ice) Reviewed. mm11 21:54 Financial registration complete. gjb 22:12 Dilaudid - HYDROmorphone 0.5 mg IVP once ordered. mm11 23:08 Basic Metabolic Profile Reviewed. mm11 23:08 Cardiac Injury Profile Reviewed. mm11 23:08 LIVER PROFILE Reviewed. mm11 23:08 Troponin Reviewed. mm11 23:08 AMYLASE Reviewed. mm11 23:08 LIPASE Reviewed. mm11 23:36 levofloxacin 750 mg IVPB once over 90 mins ordered. mm11 23:37 BED REQUEST+ADM ordered. EDMS 23:46 Admission / Observation Status ordered. EDMS 23:47 COMPLETE BLOOD COUNT Ordered. EDMS 23:47 BASIC METABOLIC PROFILE Ordered. EDMS 23:47 GASTROINTESTINAL (GI) PANEL Ordered. EDMS 23:50 C REACTIVE PROTEIN QUANTITATIV Ordered. EDMS 23:55 DRUG EVAL TOXICOLOGY ED ONLY Ordered. EDMS 23:55 [facility] Payment Agreement was scanned into [employer] and attached to record. gjb 23:59 SPUTUM CULTURE AND GRAM STAIN Ordered. EDMS 06/01 00:25 LEGIONELLA ANTIGEN URINE Ordered. EDMS 00:25 URINE STREP PNEUMONIAE ANTIGEN Ordered. EDMS 00:25 INFLUENZA A&B RAPID ANTIGEN Ordered. EDMS 07:57 T-Sheet-- Draft Copy was scanned into [employer] and attached to record. [facility] Administered Medications: 05/31 21:01 Drug: Ondansetron 4 mg [ondansetron HCl 2 mg/mL intravenous solution (2 mL)] Route: ko2 IVP; Site: left antecubital; 21:01 Drug: Dilaudid - HYDROmorphone 0.5 mg [hydromorphone 1 mg/mL injection syringe (0.5 ko2 mL)] Route: IVP; Site: left antecubital; 22:28 Drug: Dilaudid - HYDROmorphone 0.5 mg [hydromorphone 1 mg/mL injection syringe (0.5 ko2 mL)] Route: IVP; Site: left antecubital; 23:47 Drug: levofloxacin 750 mg [levofloxacin 750 mg/150 mL in 5 % dextrose intravenous ko2 piggyback] Route: IVPB; Infused Over: 90 mins; Site: left antecubital; Signatures: Dispatcher [employer] EDPal Gomez RN RN cz Lopresti, Mary-Elizabeth, [employer] [facility] ml3 Loi Martinez DO DO mm11 Anjana Corbin RN RN ko2 [facility] The chart was reviewed and I authenticate all verbal orders and agree with the evaluation and treatment provided.Corrections: (The following items were deleted from the chart) 20:03 19:58 Home Meds: multivitamin Oral tab 1 tab daily; cz cz 20:03 19:58 Home Meds: oxycodone 20 mg Oral tab 1 tab every 4 hours; cz cz 20:33 20:28 AMYLASE+LAB ordered. EDMS EDMS 20:33 20:28 LIPASE+LAB ordered. EDMS EDMS 20:33 20:28 LIVER PROFILE+LAB ordered. EDMS EDMS 23:47 23:45 GASTROINTESTINAL (GI) PANEL ordered. EDMS EDMS Attachments: 23:55 [facility] Payment Agreement [email or web address] 06/01 07:57 T-Sheet-- Draft Copy [facility] Chart Complete MTDD
--- NOTE | 2016-06-03 12:09 | EDDOCDS ---
Nurse's Notes [facility] Name: Edwar Stokes Age: 51 yrs Sex: Male : 1965 Arrival Date: 05/31/2016 Time: 19:46 Bed 18 Private MD: Cedric Marrero A. Diagnosis: Other pneumonia, unspecified organism;Patient's intentional underdosing of medication regimen due to financial hardship Presentation: 05/31 19:52 Presenting complaint: Patient states: he has had chest pain intermittently for 3 days cz since he was last here pain is intermittent not sure when this episode started pt also complains of abdominal pain and inability eating.pt states was diagnosed with pneumonia on last visit but never filled his prescription. Aspirin was not taken prior to arrival. Adult Sepsis Screening: The patient does not have new or worsening altered mentation. Patient's respiratory rate is less than 22. Systolic blood pressure is greater than 100. Patient has a qSOFA score of 0- Negative Sepsis Screen. Suicide/Homicide risk assessment- the patient denies having any suicidal and/or homicidal ideations and does not present with any other emotional, behavioral or mental health complaints. Status: Patient is not a associate director career services or dependent. Transition of care: patient was not received from another setting of care. 19:52 Acuity: AAN Level 2 cz 19:52 Method Of Arrival: Wheelchair cz 20:00 Red Flag criteria, patient assessed and taken directly to a bed. cz Triage Assessment: 19:58 General: Appears cachectic, Behavior is anxious, appropriate for age. Pain: Location: cz chest. HIV screening NA for this visit Offered previously. 22:53 Cardiovascular: Chest pain is described as vague, radiates Does not radiate. episodes ko2 are continuous began. Historical: - Allergies: No known drug Allergies; - Home Meds: 1. Carafate 100 mg/mL Oral susp 10 mL 4 times per day 2. cyanocobalamin (vitamin B-12) 1,000 mcg oral tab every 3 days 3. mirtazapine 45 mg Oral tab 1 tab bedtime 4. omeprazole 40 mg Oral cpDR 1 cap 2 times per day 5. Oysco-500 500 mg calcium (1,250 mg) oral tab twice a day 6. senna 8.6 mg oral tab 1 tabs twice a day 7. Tab-A-Christian oral tab twice a day 8. vitamin D-3 1000 units daily 9. Xanax 0.5 mg Oral tab daily as needed 10. zinc gluconate 50 mg oral tab daily 11. multivitamin Oral tab 1 tab daily 12. oxycodone 20 mg Oral tab 1 tab every 4 hours has not taken in 24 hours - PMHx: c diff; chronic abdominal pain; esophageal strictures; GERD; opiate abuse; opiate dependency; - PSHx: Appendectomy; Hernia repair- Umbilical; Gastric Bypass; G-Tube Insertion; Cholecystectomy; back surgery; repair right tendon repair; - Social history: Smoking status: Patient uses tobacco products, current every day smoker. No barriers to communication noted, The patient speaks fluent Cook Islander, Speaks appropriately for age. - Family history: Not pertinent. - : The pt / caregiver states he / she is not on anticoagulants. Home medication list is obtained from [employer] import data. - Exposure Risk Screening:: None identified. Screenin:31 Screening information is obtained from the patient. Fall risk: No risks identified. ko2 Assistance ADL's: requires no assistance with activities of daily living. Abuse/DV Screen: The patient / caregiver reports he/she is: not in a situation that causes fear, pain or injury. Nutritional screening: No deficits noted. Advance Directives: Currently, there is no health care proxy. home support is adequate. Assessment: 20:01 General: Appears cachectic, Behavior is cooperative, fussy. Pain: Location: anterior ld5 aspect of left upper chest Pain currently is 4 out of 10 on a pain scale. At worst was 10 out of 10 on a pain scale. Pain does not radiate. Quality of pain is described as sharp, stabbing, Pain began last night per pt. Neurological: Level of Consciousness is awake, obeys commands. Respiratory: Airway is patent. GI: Reports nausea, vomiting. 20:05 General: Pt reports he has not taken his home pain medication since last night . ld5 20:05 General: Pt diagnosed with pneumonia at [facility] a few days ago but has not picked up his ld5 antibiotic prescription yet. 21:02 General: Appears in no apparent distress, Behavior is cooperative. Pain: Location: ko2 chest Pain currently is 10 out of 10 on a pain scale. Neurological: Level of Consciousness is awake, obeys commands. Cardiovascular: Rhythm is sinus rhythm. Respiratory: Airway is patent. Derm: Skin is normal. 21:30 General: Appears in no apparent distress, Behavior is cooperative. Neurological: Level ko2 of Consciousness is awake. Cardiovascular: Rhythm is sinus rhythm No ectopy. Respiratory: Airway is patent. Derm: Skin is normal. 22:30 General: Appears in no apparent distress, Behavior is cooperative. Pain: Location: ko2 chest Pain currently is 8 out of 10 on a pain scale. Neurological: Level of Consciousness is awake, obeys commands. Cardiovascular: Rhythm is sinus rhythm No ectopy. Respiratory: Airway is patent. Derm: Skin is normal. 06/01 00:20 General: Appears in no apparent distress, Behavior is cooperative. Neurological: Level ko2 of Consciousness is awake, obeys commands. Respiratory: Airway is patent. Vital Signs: 05/31 19:48 BP 99 / 71; Pulse 74; Resp 18; Temp 96.6(O); Pulse Ox 100% on R/A; Weight 54.43 kg (R); elp Height 5 ft. 11 in. (180.34 cm) (R); Pain 10/10; 20:08 BP 105 / 72 (auto/); ko2 20:08 Pulse 64 MON; Pulse Ox 99% ; ko2 20:23 BP 105 / 76 (auto/); ko2 20:23 Pulse 70 MON; Pulse Ox 98% ; ko2 20:38 BP 101 / 73 (auto/); ko2 20:38 Pulse 62 MON; Pulse Ox 98% ; ko2 20:53 BP 100 / 71 (auto/); ko2 20:53 Pulse 60 MON; Pulse Ox 100% ; ko2 21:22 Pulse 56 MON; Pulse Ox 98% ; ko2 21:23 BP 89 / 61 (auto/); ko2 21:38 BP 96 / 66 (auto/); ko2 21:38 Pulse 60 MON; Pulse Ox 97% ; ko2 21:53 BP 94 / 67 (auto/); lf1 21:53 Pulse 58 MON; Pulse Ox 98% ; lf1 22:08 BP 95 / 65 (auto/); ko2 22:08 Pulse 58 MON; Pulse Ox 98% ; ko2 22:23 BP 95 / 66 (auto/); ko2 22:23 Pulse 56 MON; Pulse Ox 97% ; ko2 22:38 BP 98 / 68 (auto/); ko2 22:38 Pulse 58 MON; Pulse Ox 97% ; ko2 23:38 BP 100 / 68 (auto/); Pulse 62; Resp 18; Temp 97; Pulse Ox 96% ; Pain 8/10; ko2 19:48 Body Mass Index 16.74 (54.43 kg, 180.34 cm) elp Vitals: 19:48 Log In Time: May 31, 2016 at 19:46. RN notified that patient meets Red Flag elp criteria. ED Course: 19:47 Patient visited by Victorina Glover PCA. elp 19:47 Cedric Marrero is Private Physician. elp 19:47 Patient moved to Waiting elp 19:48 Anjana Corbin,KRISTOFER is Primary Nurse. cz 19:48 Patient visited by Victorina Glover PCA. elp 19:48 Patient moved to 18 cz 19:53 Triage Initiated cz 19:56 Mike Martinez DO is Attending Physician. mm11 19:57 Patient visited by Mike Martinez DO. mm11 20:05 Patient visited by Carlos Longoria PCA. kb5 20:05 EKG done. (by ED staff). Reviewed by Mike Martinez DO. kb5 20:20 Inserted saline lock: 20 gauge in left antecubital area and blood collected. The ko2 patient tolerated the procedure well. 20:25 Patient visited by Mike Martinez DO. mm11 20:28 Basic Metabolic Profile Sent. ld5 20:28 CBC with Diff Sent. ld5 20:28 Cardiac Injury Profile Sent. ld5 20:29 Troponin Sent. ld5 20:40 -Blood Culture Sent. ld5 20:40 Lactic Acid (Jonas tube on ice) Sent. ld5 20:40 BLOOD CULTURES Sent. ld5 20:41 LIVER PROFILE Sent. ld5 20:41 LIPASE Sent. ld5 20:41 AMYLASE Sent. ld5 21:02 Patient visited by Anjana Corbin RN. ko2 21:04 Patient visited by Anjana Corbin,KRISTOFER. ko2 21:31 The patient / caregiver is instructed regarding the plan of care and ED course. Cardiac ko2 monitor on. Pulse ox on. NIBP on. 22:02 Patient visited by Carlos Longoria PCA. kb5 22:57 Patient visited by Anjana Corbin RN. ko2 23:33 Em Salinas licensed physical therapist assistant. ys2 23:35 Patient visited by Mike Martinez DO. mm11 23:37 Em Salinas is Hospitalizing Provider. mm11 23:42 EKG-ADULT Returned. EDMS 23:47 Patient visited by Anjana Corbin RN. ko2 23:55 [facility] Payment Agreement was scanned into [email or web address] and attached to record. gjb 06/01 00:21 No procedures done that require assistance. ko2 07:57 T-Sheet-- Draft Copy was scanned into [email or web address] and attached to record. [facility] Administered Medications: 05/31 21:01 Drug: Ondansetron 4 mg [ondansetron HCl 2 mg/mL intravenous solution (2 mL)] Route: ko2 IVP; Site: left antecubital; 21:01 Drug: Dilaudid - HYDROmorphone 0.5 mg [hydromorphone 1 mg/mL injection syringe (0.5 ko2 mL)] Route: IVP; Site: left antecubital; 22:28 Drug: Dilaudid - HYDROmorphone 0.5 mg [hydromorphone 1 mg/mL injection syringe (0.5 ko2 mL)] Route: IVP; Site: left antecubital; 23:47 Drug: levofloxacin 750 mg [levofloxacin 750 mg/150 mL in 5 % dextrose intravenous ko2 piggyback] Route: IVPB; Infused Over: 90 mins; Site: left antecubital; Order Results: Lab Order: Basic Metabolic Profile; [facility]' 05/31/16 22:26 Test: GLUCOSE, FASTING; Value: 75; Range: 70-105; Units: MG/DL; Status: F Test: BLOOD UREA NITROGEN; Value: 13; Range: 7-18; Units: MG/DL; Status: F Test: CREATININE FOR GFR; Value: 0.54; Range: 0.70-1.30; Abnormal: Below low normal; Units: MG/DL; Status: F Test: GLOMERULAR FILTRATION RATE; Value: > 60.0; Range: >56; Status: F Test: SODIUM LEVEL; Value: 145; Range: 136-145; Units: MEQ/L; Status: F Test: POTASSIUM SERUM; Value: 3.5; Range: 3.5-5.1; Units: MEQ/L; Status: F Test: CHLORIDE LEVEL; Value: 108; Range: 98-107; Abnormal: Above high normal; Units: MEQ/L; Status: F Test: CARBON DIOXIDE LEVEL; Value: 29; Range: 21-32; Units: MEQ/L; Status: F Test: ANION GAP; Value: 8; Range: 8-16; Units: MEQ/L; Status: F Test: CALCIUM LEVEL; Value: 7.9; Range: 8.5-10.1; Abnormal: Below low normal; Units: MG/DL; Status: F Test Note: ; Units are mL/min/1.73 m2 Chronic Kidney Disease Staging per NKF: Stage I & II GFR >=60 Normal to Mildly Decreased Stage III GFR 30-59 Moderately Decreased Stage IV GFR 15-29 Severely Decreased Stage V GFR <15 Very Little GFR Left ESRD GFR <15 on MACHINE PRECISION ETCHER Lab Order: CBC with Diff; SPEC'M 05/31/16 19:59 Test: WHITE BLOOD COUNT; Value: 4.7; Range: 4.0-10.0; Units: K/mm3; Status: F Test: RED BLOOD COUNT; Value: 3.63; Range: 4.30-6.10; Abnormal: Below low normal; Units: M/mm3; Status: F Test: HEMOGLOBIN; Value: 11.5; Range: 14.0-18.0; Abnormal: Below low normal; Units: g/dl; Status: F Test: HEMATOCRIT; Value: 34.1; Range: 42.0-52.0; Abnormal: Below low normal; Units: %; Status: F Test: MEAN CORPUSCULAR VOLUME; Value: 94.0; Range: 80.0-96.0; Units: fl; Status: F Test: MEAN CORPUSCULAR HEMOGLOBIN; Value: 31.6; Range: 27.0-33.0; Units: pg; Status: F Test: MEAN CORPUSCULAR HGB CONC; Value: 33.6; Range: 32.0-36.5; Units: g/dl; Status: F Test: RED CELL DISTRIBUTION WIDTH; Value: 13.8; Range: 11.5-14.5; Units: %; Status: F Test: PLATELET COUNT, AUTOMATED; Value: 328; Range: 150-450; Units: k/mm3; Status: F Test: NEUTROPHILS %; Value: 57.5; Range: 36.0-66.0; Units: %; Status: F Test: LYMPH %; Value: 33.7; Range: 24.0-44.0; Units: %; Status: F Test: MONO %; Value: 4.6; Range: 0.0-5.0; Units: %; Status: F Test: EOS %; Value: 1.4; Range: 0.0-3.0; Units: %; Status: F Test: BASO %; Value: 0.4; Range: 0.0-1.0; Units: %; Status: F Test: LARGE UNSTAINED CELL %; Value: 2.5; Range: 0.0-4.0; Units: %; Status: F Test: NEUTROPHILS #; Value: 2.7; Range: 1.8-7.7; Units: K/mm3; Status: F Test: LYMPH #; Value: 1.6; Range: 1.5-4.5; Units: K/mm3; Status: F Test: MONO #; Value: 0.2; Range: 0.0-0.8; Units: K/mm3; Status: F Test: EOS #; Value: 0.1; Range: 0.0-0.50; Units: K/mm3; Status: F Test: BASO #; Value: 0.0; Range: 0.0-0.2; Units: K/mm3; Status: F Test: LARGE UNSTAINED CELL #; Value: 0.1; Range: 0.0-0.4; Units: K/mm3; Status: F Lab Order: Cardiac Injury Profile; SPEC'M 05/31/16 22:26 Test: CPK CREATINE PHOSPHOKINASE; Value: 20; Range: 39-308; Abnormal: Below low normal; Units: U/L; Status: F Test: CK-MB VALUE MASS; Value: 1.0; Range: 0.0-3.6; Units: NG/ML; Status: F Test: MB/CK RELATIVE INDEX; Value: 5.00; Range: < OR =4; Abnormal: Above high normal; Status: F Test Note: ; DIAGNOSIS CRITERIA MMB ng/ml Relative Index (RI) NON-AMI < or = 5 N/A JONAS ZONE > 5 < or = 4 AMI > 5 > 4 Lab Order: Troponin; [facility] 05/31/16 22:26 Test: TROPONIN I; Value: < 0.02; Range: < 0.10; Units: NG/ML; Status: F Test Note: ; Troponin I Reference Interval for [place] LOCI: 99th Percentile= 0.00-0.045 ng/ml Risk Stratification: <= 0.10 ng/ml Decreased Risk for Adverse Clinical Events. 0.10-1.50 ng/ml Increased Risk for Adverse Clinical Events. Evaluation of additional criterion and/or repeat testing in 2-6 hours is suggested to rule out myocardial damage. >= 1.50 ng/ml Indicative of Myocardial Injury. Lab Order: Lactic Acid (Jonas tube on ice); [facility] 05/31/16 20:37 Test: LACTIC ACID LEVEL, LACTATE; Value: 1.2; Range: 0.4-2.0; Units: MMOL/L; Status: F Lab Order: AMYLASE; [facility] 05/31/16 22:26 Test: AMYLASE; Value: 35; Range: 25-115; Units: U/L; Status: F Lab Order: LIPASE; [facility] 05/31/16 22:26 Test: LIPASE; Value: 85; Range: 73-393; Units: U/L; Status: F Lab Order: LIVER PROFILE; [facility] 05/31/16 22:26 Test: AST/SGOT; Value: 12; Range: 15-37; Abnormal: Below low normal; Units: U/L; Status: F Test: ALT/SGPT; Value: 13; Range: 12-78; Units: U/L; Status: F Test: ALKALINE PHOSPHATASE; Value: 84; Range: 45-117; Units: U/L; Status: F Test: BILIRUBIN,TOTAL; Value: 0.4; Range: 0.2-1.0; Units: MG/DL; Status: F Test: BILIRUBIN,DIRECT; Value: 0.2; Range: 0.0-0.2; Units: MG/DL; Status: F Test: TOTAL PROTEIN; Value: 6.6; Range: 6.4-8.2; Units: GM/DL; Status: F Test: ALBUMIN; Value: 2.6; Range: 3.2-5.2; Abnormal: Below low normal; Units: GM/DL; Status: F Test: ALBUMIN/GLOBULIN RATIO; Value: 0.65; Range: 1.00-1.93; Abnormal: Below low normal; Status: F Radiology Order: EKG-ADULT Test: EKG-ADULT REASON FOR EXAMINATION: Chest Pain; Stationary ECG Study; [facility] - ED; ; Test Date: 2016-05-31; Pat Name: EDWAR STOKES Department:; Room: -; Gender: M 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 RBBB; Electronically Signed On 05-31-2016 23:07:14 EST by Smith Enamorado; Outcome: 22:54 Discharge Assessment: patient administered narcotics - yes. ko2 23:39 Decision to Hospitalize by Provider. mm11 06/01 00:20 Discharge Assessment: Patient awake, alert and oriented x 3. No cognitive and/or ko2 functional deficits noted. Patient verbalized understanding of disposition instructions. patient administered narcotics - yes. Patient was admitted to the hospital or transferred to another facility. The following High Risk Discharge criteria are identified: None. Discharged to Admitted to Floor accompanied by tech, via stretcher, with chart. Condition: stable. No special radiology studies were completed. Property :Personal belongings accompany Pt. 00:21 Admission hand-off: Report Faxed Fax receipt verified by KRISTOFER Miller. ko2 00:29 Patient left the ED. ko2 Signatures: Dispatcher [employer] EDMS Pal Orellana RN RN cz Bancroft, Kristopher, LAST TRIMMER LAST TRIMMER [email or web address] Krysten Verma RN RN lf1 Mike Martinez, DO mm11 Nikki Jackson RN RN ld5 Victorina Glover, LAST TRIMMER LAST TRIMMER Anjana Painting RN RN ko2 Amara Simon, Strickland ys2 Kathryn Crews Corrections: (The following items were deleted from the chart) 05/31 19:49 19:48 BP 99 / 71; Pulse 74bpm; Resp 18bpm; Pulse Ox 100% RA; Temp 96.6F Oral; Height 5 elp ft. 11 in. Reported; Pain 10/10; elp 20:03 19:58 Home Meds: multivitamin Oral tab 1 tab daily; cz cz 20:03 19:58 Home Meds: oxycodone 20 mg Oral tab 1 tab every 4 hours; cz cz 20:05 19:52 Presenting complaint: Patient states: he has had chest pain intermittently for 3 cz days since he was last here pain is intermittent not sure when this episode started pt also complains of abdominal pain and inability eating cz 20:33 20:28 AMYLASE+LAB sent. ld5 EDMS 20:33 20:28 LIPASE+LAB sent. ld5 EDMS 20:33 20:28 LIVER PROFILE+LAB sent. ld5 EDMS Chart [facility]
--- NOTE | 2016-06-17 20:25 | DSES ---
DATE OF ADMISSION: 05/31/2016 DATE OF DISCHARGE: 06/02/2016 PRIMARY CARE PROVIDER: Dr. Marrero REASON FOR ADMISSION: Chest pain, cough and diarrhea. FINAL DIAGNOSES: 1. Pneumonia. 2. History of anxiety and depression. 3. History of esophageal stricture. 4. History of opiate abuse and dependency. 5. Chronic back pain. 6. History of gastric bypass. HISTORY OF PRESENT ILLNESS: The patient is a 51-year-old male who presented to the emergency room complaining of productive cough for the past week and half, as well as diarrhea and some chest pain with coughing. The patient has a history of G-tube for supplemental feeding, has not been able to tolerate oral feeds. He stated he had 6 or 7 episodes of diarrhea daily for the past few days. He was recently diagnosed with pneumonia in the emergency room and was discharged on antibiotics. However, he stated he could not pick them up because he did not have the money and returned back to the hospital with the same symptoms. Chest x-ray was done which showed pneumonia similar to the prior CT scan that was done on prior admission. The patient was admitted under hospitalist service for pneumonia. HOSPITAL COURSE: The patient was started on IV antibiotics initially, azithromycin and ceftriaxone for 2 days and then he was changed to Levaquin oral once his symptoms improved. He had serial troponins to rule out any cardiac cause for chest pain times three; they were all negative. The rest of his blood work was within normal limits. Vitals were stable. The patient did not have any fevers during the whole hospitalization. Blood cultures were obtained and negative times two sets. Once the patient was stable, he was discharged home on his home medications and azithromycin but he states he now will be able to afford because he was getting paid later that day. DISCHARGE INSTRUCTIONS: The patient is to followup with his primary care provider, Dr. Marrero, in 2-5 days. Diet regular, activities as tolerated. Discharge medications include: azithromycin 250 mg by mouth as directed, vitamin D 2000 units by mouth daily, multivitamin one tablet by mouth daily, omeprazole 40 mg by mouth twice a day, oxycodone 20 mg by mouth every 4 hours, Senna one tablet by mouth twice a day, Carafate 10 mL by mouth four times a day, zinc gluconate 50 mg by mouth daily. Discharge condition was stable.
[2016-08-04] MEDS ORDERED: MORP15TA2 PO (12:30)
== END 2016-06-02 08:40 | disposition home or self-care (01) | DRG 194 ==
LOC: M ED 19:46 → M ED INP 23:40 → M MS5PR 06-01 01:00
PROVIDERS: ADMIT Internal Medicine; ATTEND Internal Medicine
DX: J18.9 Pneumonia, unspecified organism (principal); F33.9 Major depressive disorder, recurrent, unspecified; Z79.899 Other long term (current) drug therapy; K21.9 Gastro-esophageal reflux disease without esophagitis; F17.200 Nicotine dependence, unspecified, uncomplicated; Z83.3 Family history of diabetes mellitus; Z93.1 Gastrostomy status; E53.8 Deficiency of other specified B group vitamins; E55.9 Vitamin D deficiency, unspecified; F41.9 Anxiety disorder, unspecified; R19.7 Diarrhea, unspecified; M54.5 Low back pain; F11.90 Opioid use, unspecified, uncomplicated; Z98.84 Bariatric surgery status

== ENCOUNTER 2016-06-09 09:39 | Emergency (ER) | payer MEDICARE, OTHER ==
[~2016-06-09 09:39] MED LIST changes: +ZITHTAB PO
[2016-06-09] MEDS ORDERED: ASPIRIN 81 MG CHEW TABLET As Ordered ONE (09:57)
[2016-06-09 10:03] LABS: BASO % 0.5 % (0.0-1.0); EOS % 1.1 % (0.0-3.0); LARGE UNSTAINED CELL # 0.1 K/mm3 (0.0-0.4); LARGE UNSTAINED CELL % 2.2 % (0.0-4.0); LYMPH # 0.6 K/mm3 (1.5-4.5); LYMPH % 15.3 % (24.0-44.0); MEAN CORPUSCULAR HEMOGLOBIN 29.9 pg (27.0-33.0); MEAN CORPUSCULAR HGB CONC 31.8 g/dl (32.0-36.5); MONO # 0.2 K/mm3 (0.0-0.8); MONO % 6.6 % (0.0-5.0); NEUTROPHILS # 2.6 K/mm3 (1.8-7.7); NEUTROPHILS % 74.2 % (36.0-66.0); PLATELET COUNT, AUTOMATED 148 k/mm3 (150-450); RED CELL DISTRIBUTION WIDTH 14.9 % (11.5-14.5); WHITE BLOOD COUNT 3.5 K/mm3 (4.0-10.0)
[2016-06-09 10:27] LABS: ANION GAP 8 MEQ/L (8-16); BLOOD UREA NITROGEN 14 MG/DL (7-18); CALCIUM LEVEL 8.3 MG/DL (8.5-10.1); CARBON DIOXIDE LEVEL 30 MEQ/L (21-32); CHLORIDE LEVEL 102 MEQ/L (98-107); CREATININE FOR GFR 0.56 MG/DL (0.70-1.30); GLOMERULAR FILTRATION RATE > 60.0 (>56); GLUCOSE, FASTING 102 MG/DL (70-105); SODIUM LEVEL 140 MEQ/L (136-145)
--- NOTE | 2016-06-09 10:33 | REP ---
CHEST, ONE VIEW: HISTORY: Chest pain. COMPARISON: 05/31/2016. There has been a decrease in the left lower lobe infiltrate compared to the previous study. The right lung is clear. The heart is normal in size. The pulmonary vasculature is normal in appearance. IMPRESSION: Left lower lobe infiltrate, decreased compared to the previous study. Signed by Rian López MD 06/09/2016 11:16 A
[2016-06-09] MEDS ORDERED: MORPHINE 2 MG/ML 1ML SYRINGE As Ordered ONE (10:54)
[2016-06-09] MEDS ORDERED: ISOVUE-370 76% 100ML VIAL (Q9967) As Ordered ONE (11:24)
[2016-06-09] MEDS ORDERED: HYDROmorphone HCL 1 MG/ML SYRINGE (J1170) As Ordered ONE (12:46)
[2016-06-09] MEDS ORDERED: PERCOCET 5MG/325MG TAB As Ordered ONE (15:02)
[2016-06-09] MEDS ORDERED: LORazepam 1 MG TAB As Ordered ONE (15:02)
--- NOTE | 2016-06-09 16:27 | EDDOCDS ---
Physician Documentation [facility] Name: Edwar Stokes Age: 51 yrs Sex: Male : 1965 Arrival Date: 06/09/2016 Time: 09:39 Bed 4 Private MD: Disposition: 06/09/16 15:07 Discharged to Home/Self Care. Impression: Chest pain, unspecified, Abdominal and pelvic pain. - Condition is Stable. - Discharge Instructions: Abdominal Pain, Adult, Nonspecific Chest Pain. - Medication Reconciliation, Local Pharmacy Hours form. - Follow up: Cedric Marrero MD; When: Call to arrange an appointment; Reason: Continuance of care. - Problem is new. - Symptoms have improved. Historical: - Allergies: no known allergies; - Home Meds: 1. Carafate 100 mg/mL Oral susp 10 mL 4 times per day (Last dose: 06/08/2016) 2. cyanocobalamin (vitamin B-12) 1,000 mcg oral tab every 3 days (Last dose: 06/08/2016) 3. oxycodone 20 mg Oral tab 1 tab every 4 hours (Last dose: 06/09/2016 00:00) 4. omeprazole 40 mg Oral cpDR 1 cap 2 times per day (Last dose: 06/08/2016) 5. multivitamin Oral tab 1 tab daily (Last dose: 06/08/2016) 6. azithromycin 250 mg Oral tab 1 tab once daily (Last dose: 06/08/2016) 7. vitamin D-3 1000 units daily (Last dose: 06/08/2016) 8. Tab-A-Christian oral tab twice a day (Last dose: 06/08/2016) 9. senna 8.6 mg oral tab 1 tabs twice a day (Last dose: 06/08/2016) 10. zinc gluconate 50 mg oral tab daily (Last dose: 06/08/2016) 11. Oysco-500 500 mg calcium (1,250 mg) oral tab twice a day (Last dose: 06/08/2016) - PMHx: c diff; chronic abdominal pain; esophageal strictures; GERD; opiate abuse; opiate dependency; - PSHx: Appendectomy; repair right tendon repair; Hernia repair- Umbilical; Gastric Bypass; G-Tube Insertion; Cholecystectomy; - Social history: Smoking status: Patient uses tobacco products, current some day smoker. No barriers to communication noted, The patient speaks fluent Romanian, Speaks appropriately for age. - Family history: Not pertinent. - : The pt / caregiver states he / she is not on anticoagulants. Home medication list is obtained from a discharge med list. - Exposure Risk Screening:: None identified. Vital Signs: 06/09 09:49 BP 96 / 61 (auto/); hs1 09:49 Pulse 64 MON; Resp 16; Temp 97.1; Pulse Ox 99% on R/A; Weight 56.7 kg / 125 lbs; Height hs1 5 ft. 11 in. (180.34 cm); Pain 10/10; 10:18 BP 102 / 69 (auto/); hs1 10:19 Pulse 60 MON; Pulse Ox 100% ; hs1 10:33 BP 98 / 68 (auto/); hs1 10:34 Pulse 60 MON; Pulse Ox 100% ; hs1 10:48 BP 99 / 69 (auto/); hs1 10:49 Pulse 60 MON; Pulse Ox 100% ; hs1 11:03 BP 97 / 63 (auto/); hs1 11:05 Pulse 58 MON; Pulse Ox 100% ; hs1 11:18 BP 100 / 72 (auto/); hs1 11:19 Pulse 58 MON; Pulse Ox 100% ; hs1 11:33 BP 90 / 55 (auto/); hs1 11:34 Pulse 58 MON; Pulse Ox 99% ; hs1 11:48 BP 98 / 65 (auto/); hs1 11:49 Pulse 60 MON; Pulse Ox 100% ; hs1 12:03 BP 101 / 68 (auto/); hs1 12:04 Pulse 60 MON; Pulse Ox 100% ; hs1 12:18 BP 96 / 65 (auto/); hs1 12:19 Pulse 60 MON; Pulse Ox 100% ; hs1 12:33 BP 94 / 60 (auto/); hs1 12:34 Pulse 58 MON; Pulse Ox 100% ; hs1 12:48 BP 103 / 67 (auto/); hs1 12:49 Pulse 66 MON; Pulse Ox 100% ; hs1 13:03 BP 100 / 68 (auto/); hs1 13:04 Pulse 56 MON; Pulse Ox 99% ; hs1 13:18 BP 96 / 65 (auto/); hs1 13:19 Pulse 58 MON; Pulse Ox 99% ; hs1 13:33 BP 96 / 66 (auto/); hs1 13:33 Pulse 62 MON; Pulse Ox 99% ; hs1 13:48 BP 95 / 65 (auto/); hs1 13:48 Pulse 62 MON; Pulse Ox 99% ; hs1 14:03 BP 95 / 66 (auto/); hs1 14:03 Pulse 66 MON; Pulse Ox 99% ; hs1 14:17 Pulse 62 MON; Pulse Ox 99% ; hs1 14:18 BP 98 / 71 (auto/); hs1 14:33 BP 99 / 61 (auto/); hs1 14:33 Pulse 62 MON; Pulse Ox 99% ; hs1 14:48 BP 97 / 62 (auto/); hs1 14:48 Pulse 66 MON; Pulse Ox 99% ; hs1 15:03 BP 96 / 64 (auto/); hs1 15:03 Pulse 62 MON; Pulse Ox 100% ; hs1 15:18 BP 96 / 64 (auto/); hs1 15:19 Pulse 62 MON; Pulse Ox 100% ; hs1 15:48 BP 98 / 66 (auto/); hs1 15:48 Pulse 56 MON; hs1 16:03 BP 95 / 63 (auto/); hs1 16:03 Pulse 58 MON; hs1 16:18 BP 98 / 63 (auto/); hs1 16:18 Pulse 66 MON; Resp 18; Temp 99.7(TE); Pulse Ox 100% ; Pain 9/10; hs1 09:49 Body Mass Index 17.43 (56.70 kg, 180.34 cm) hs1 MDM: 09:46 Aspirin Chewable Tablet 324 mg PO once ordered. fg 09:46 Floor Sweeper/Pulse Ox/q 30 min VS ordered. fg 09:46 IV Saline Lock ordered. fg 09:46 Rhythm Strip to chart ordered. fg 09:46 Undress patient appropriately for examination ordered. fg 09:47 B-Type Natiuretic Peptide Ordered. EDMS 09:47 Basic Metabolic Profile Ordered. EDMS 09:47 CBC with Diff Ordered. EDMS 09:47 Cardiac Injury Profile Ordered. EDMS 09:47 Partial Thromboplastin Time Ordered. EDMS 09:47 Troponin Ordered. EDMS 09:48 portable chest Ordered. EDMS 09:48 ECG WITH READING ER PHYS+CARDIAG ordered. EDMS 10:11 Financial registration complete. lg 10:13 [facility] Payment Agreement was scanned into G5 and attached to record. lg 10:51 morphine 2 mg IVP once ordered. fg 10:54 CT Chest Angio R/O PE Ordered. EDMS 10:55 CT ABD & PELVIS: IV Contrast Only Ordered. EDMS 12:40 Dilaudid - HYDROmorphone 1 mg IVP once ordered. fg 14:47 oxyCODONE-acetaminophen 5 mg-325 mg 1 tabs PO once ordered. fg 14:47 LORazepam 0.5 mg PO once ordered. fg Administered Medications: 09:59 Drug: Aspirin 324 mg [aspirin 81 mg chewable tablet (4 tabs)] Route: PO; srm 11:04 Drug: morphine 2 mg [morphine 2 mg/mL intravenous cartridge (1 mL)] Route: IVP; Site: hs1 left antecubital; 12:50 Drug: Dilaudid - HYDROmorphone 1 mg [hydromorphone 1 mg/mL injection syringe (1 mL)] hs1 Route: IVP; Site: left antecubital; 14:58 Drug: oxyCODONE-acetaminophen 1 tabs [oxycodone-acetaminophen 5 mg-325 mg tablet (1 hs1 tabs)] Route: PO; 14:58 Drug: LORazepam 0.5 mg [lorazepam 1 mg tablet (0.5 tabs)] Route: PO; hs1 Signatures: Dispatcher [employer] EDMadhavi Webster Reg Reg lg Agata Altamirano RN RN hs1 Martina Thomas MD MD fg Michelson, Staci RN [facility] The chart was reviewed and I authenticate all verbal orders and agree with the evaluation and treatment provided.Attachments: 10:13 [facility] Payment Agreement lg [email or web address]
--- NOTE | 2016-06-09 16:27 | EDDOCDS ---
Nurse's Notes [facility] Name: Edwar Stokes Age: 51 yrs Sex: Male : 1965 Arrival Date: 06/09/2016 Time: 09:39 Bed 4 Private MD: Diagnosis: Chest pain, unspecified;Abdominal and pelvic pain Presentation: 06/09 09:42 Presenting complaint: EMS states: while at Dr Zapata office patient complaining of hs1 chest pain, abdominal pains and general pain all over. EMS started IV 20 gauge in Left AC. SR on monitor. Glucose 132 mg/dL. Hx of gastric bypass 2012 and now has continuous feeding tube. Patient also has recent admission for pneumonia. Aspirin was not taken prior to arrival. Adult Sepsis Screening: The patient does not have new or worsening altered mentation. Patient's respiratory rate is less than 22. Systolic blood pressure is less than or equal to 100 (1 point). Patient has a qSOFA score of 1- Negative Sepsis Screen. 09:42 Acuity: ANA Level 3 hs1 09:56 Suicide/Homicide risk assessment- the patient denies having any suicidal and/or hs1 homicidal ideations and does not present with any other emotional, behavioral or mental health complaints. 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 Transition of care: patient was not received from another setting of care. 09:56 Method Of Arrival: Ambulance hs1 Triage Assessment: 09:50 General: Appears in no apparent distress, cachectic, Behavior is appropriate for age, hs1 cooperative. Pain: Location: chest and abdomen Pain currently is 10 out of 10 on a pain scale. HIV screening NA for this visit Offered previously. Neurological: No deficits noted. Cardiovascular: Chest pain is described as severe, radiates Does not radiate. episodes are continuous began began last night. Respiratory: Airway is patent Respiratory effort is even, unlabored, Respiratory pattern is regular, symmetrical, Breath sounds are clear bilaterally. GI: Enteral feeding tube with tube feeding infusing. Derm: Skin is pink, warm & dry. normal. Historical: - Allergies: no known allergies; - Home Meds: 1. Carafate 100 mg/mL Oral susp 10 mL 4 times per day (Last dose: 06/08/2016) 2. cyanocobalamin (vitamin B-12) 1,000 mcg oral tab every 3 days (Last dose: 06/08/2016) 3. oxycodone 20 mg Oral tab 1 tab every 4 hours (Last dose: 06/09/2016 00:00) 4. omeprazole 40 mg Oral cpDR 1 cap 2 times per day (Last dose: 06/08/2016) 5. multivitamin Oral tab 1 tab daily (Last dose: 06/08/2016) 6. azithromycin 250 mg Oral tab 1 tab once daily (Last dose: 06/08/2016) 7. vitamin D-3 1000 units daily (Last dose: 06/08/2016) 8. Tab-A-Christian oral tab twice a day (Last dose: 06/08/2016) 9. senna 8.6 mg oral tab 1 tabs twice a day (Last dose: 06/08/2016) 10. zinc gluconate 50 mg oral tab daily (Last dose: 06/08/2016) 11. Oysco-500 500 mg calcium (1,250 mg) oral tab twice a day (Last dose: 06/08/2016) - PMHx: c diff; chronic abdominal pain; esophageal strictures; GERD; opiate abuse; opiate dependency; - PSHx: Appendectomy; repair right tendon repair; Hernia repair- Umbilical; Gastric Bypass; G-Tube Insertion; Cholecystectomy; - Social history: Smoking status: Patient uses tobacco products, current some day smoker. No barriers to communication noted, The patient speaks fluent Kyrgyz, Speaks appropriately for age. - Family history: Not pertinent. - : The pt / caregiver states he / she is not on anticoagulants. Home medication list is obtained from a discharge med list. - Exposure Risk Screening:: None identified. Screenin:54 Screening information is obtained from the patient. Fall risk: At risk due to gait hs1 disturbance, use of cane. Assistance ADL's: requires no assistance with activities of daily living. Abuse/DV Screen: The patient / caregiver reports he/she is: not in a situation that causes fear, pain or injury. Nutritional screening: On tube feeding - Jevity 1. Advance Directives: There is no active DNR order. home support is adequate. Assessment: 10:02 General: Appears cachectic, Behavior is appropriate for age. Pain: Location: chest and hs1 abdomen Pain currently is 10 out of 10 on a pain scale. Neurological: Level of Consciousness is awake, alert, obeys commands. Cardiovascular: Rhythm is sinus rhythm No ectopy. Respiratory: Airway is patent Respiratory effort is even, unlabored, Respiratory pattern is regular, symmetrical. Derm: Skin is pink, warm & dry. normal. 11:41 General: Appears in no apparent distress, cachectic, Behavior is appropriate for age, hs1 cooperative. Pain:. 12:23 Adult Sepsis Screening: The patient does not have new or worsening altered mentation. hs1 Patient's respiratory rate is less than 22. Systolic blood pressure is less than or equal to 100 (1 point). Patient has a qSOFA score of 1- Negative Sepsis Screen. General: Appears cachectic, Behavior is appropriate for age, cooperative. Pain: Location: all over Pain currently is 9 out of 10 on a pain scale. Neurological: Level of Consciousness is awake, alert. Cardiovascular: Rhythm is sinus rhythm No ectopy. Respiratory: No deficits noted. Vital Signs: 09:49 BP 96 / 61 (auto/); hs1 09:49 Pulse 64 MON; Resp 16; Temp 97.1; Pulse Ox 99% on R/A; Weight 56.7 kg; Height 5 ft. 11 hs1 in. (180.34 cm); Pain 10/10; 10:18 BP 102 / 69 (auto/); hs1 10:19 Pulse 60 MON; Pulse Ox 100% ; hs1 10:33 BP 98 / 68 (auto/); hs1 10:34 Pulse 60 MON; Pulse Ox 100% ; hs1 10:48 BP 99 / 69 (auto/); hs1 10:49 Pulse 60 MON; Pulse Ox 100% ; hs1 11:03 BP 97 / 63 (auto/); hs1 11:05 Pulse 58 MON; Pulse Ox 100% ; hs1 11:18 BP 100 / 72 (auto/); hs1 11:19 Pulse 58 MON; Pulse Ox 100% ; hs1 11:33 BP 90 / 55 (auto/); hs1 11:34 Pulse 58 MON; Pulse Ox 99% ; hs1 11:48 BP 98 / 65 (auto/); hs1 11:49 Pulse 60 MON; Pulse Ox 100% ; hs1 12:03 BP 101 / 68 (auto/); hs1 12:04 Pulse 60 MON; Pulse Ox 100% ; hs1 12:18 BP 96 / 65 (auto/); hs1 12:19 Pulse 60 MON; Pulse Ox 100% ; hs1 12:33 BP 94 / 60 (auto/); hs1 12:34 Pulse 58 MON; Pulse Ox 100% ; hs1 12:48 BP 103 / 67 (auto/); hs1 12:49 Pulse 66 MON; Pulse Ox 100% ; hs1 13:03 BP 100 / 68 (auto/); hs1 13:04 Pulse 56 MON; Pulse Ox 99% ; hs1 13:18 BP 96 / 65 (auto/); hs1 13:19 Pulse 58 MON; Pulse Ox 99% ; hs1 13:33 BP 96 / 66 (auto/); hs1 13:33 Pulse 62 MON; Pulse Ox 99% ; hs1 13:48 BP 95 / 65 (auto/); hs1 13:48 Pulse 62 MON; Pulse Ox 99% ; hs1 14:03 BP 95 / 66 (auto/); hs1 14:03 Pulse 66 MON; Pulse Ox 99% ; hs1 14:17 Pulse 62 MON; Pulse Ox 99% ; hs1 14:18 BP 98 / 71 (auto/); hs1 14:33 BP 99 / 61 (auto/); hs1 14:33 Pulse 62 MON; Pulse Ox 99% ; hs1 14:48 BP 97 / 62 (auto/); hs1 14:48 Pulse 66 MON; Pulse Ox 99% ; hs1 15:03 BP 96 / 64 (auto/); hs1 15:03 Pulse 62 MON; Pulse Ox 100% ; hs1 15:18 BP 96 / 64 (auto/); hs1 15:19 Pulse 62 MON; Pulse Ox 100% ; hs1 15:48 BP 98 / 66 (auto/); hs1 15:48 Pulse 56 MON; hs1 16:03 BP 95 / 63 (auto/); hs1 16:03 Pulse 58 MON; hs1 16:18 BP 98 / 63 (auto/); hs1 16:18 Pulse 66 MON; Resp 18; Temp 99.7(TE); Pulse Ox 100% ; Pain 9/10; hs1 09:49 Body Mass Index 17.43 (56.70 kg, 180.34 cm) hs1 Vitals: 09:49 Log In Time N/A - ambulance arrival. hs1 ED Course: 09:40 Patient visited by Ghazal Irby, Puff Ironer. deg 09:40 Patient moved to Waiting deg 09:40 Patient moved to 4 deg 09:45 Martina Thomas MD is Attending Physician. fg 09:45 Patient visited by Martina Thoams MD. fg 09:47 Triage Initiated hs1 09:54 Maintain field IV. Dressing intact. Good blood return noted. Site clean & dry. Gauge & hs1 site: 20 Gauge Left AC. Flushed. 09:56 The patient / caregiver is instructed regarding the plan of care and ED course. Patient hs1 has correct armband on for positive identification. Placed in gown. Bed in low position. Call light in reach. Side rails up X2. drywall hanger on. Pulse ox on. NIBP on. 09:56 B-Type Natiuretic Peptide Sent. srm 09:56 Basic Metabolic Profile Sent. srm 09:56 CBC with Diff Sent. srm 09:56 Cardiac Injury Profile Sent. srm 09:56 Partial Thromboplastin Time Sent. srm 09:56 Troponin Sent. srm 10:06 EKG done. (by ED staff). Reviewed by Martina Thomas MD. ct3 10:07 Patient visited by Tiffanie Zabala PCA. ct3 10:13 [facility] Payment Agreement was scanned into cottonTracks and attached to record. lg 10:44 portable chest Returned. EDMS 10:50 Patient visited by Agata Altamirano RN. hs1 11:41 Patient visited by Agata Altamirano RN. hs1 12:36 Patient visited by Agata Altamirano RN. hs1 13:15 Patient visited by Tiffanie Zabala PCA. ct3 14:29 Patient visited by Martina Thomas MD. fg 15:07 Cedric Marrero MD is Referral Physician. fg 16:25 Discontinued IV lock intact, bleeding controlled, pressure dressing applied, No hs1 redness/swelling at site. No procedures done that require assistance. Administered Medications: 09:59 Drug: Aspirin 324 mg [aspirin 81 mg chewable tablet (4 tabs)] Route: PO; srm 11:04 Drug: morphine 2 mg [morphine 2 mg/mL intravenous cartridge (1 mL)] Route: IVP; Site: hs1 left antecubital; 12:50 Drug: Dilaudid - HYDROmorphone 1 mg [hydromorphone 1 mg/mL injection syringe (1 mL)] hs1 Route: IVP; Site: left antecubital; 14:58 Drug: oxyCODONE-acetaminophen 1 tabs [oxycodone-acetaminophen 5 mg-325 mg tablet (1 hs1 tabs)] Route: PO; 14:58 Drug: LORazepam 0.5 mg [lorazepam 1 mg tablet (0.5 tabs)] Route: PO; hs1 Order Results: Lab Order: B-Type Natiuretic Peptide; SPEC'M 06/09/16 09:55 Test: BRAIN NATRIURETIC PEPTIDE; Value: 5.7; Range: <100; Units: PG/ML; Status: F Lab Order: Basic Metabolic Profile; SPEC'M 06/09/16 09:55 Test: GLUCOSE, FASTING; Value: 102; Range: 70-105; Units: MG/DL; Status: F Test: BLOOD UREA NITROGEN; Value: 14; Range: 7-18; Units: MG/DL; Status: F Test: CREATININE FOR GFR; Value: 0.56; Range: 0.70-1.30; Abnormal: Below low normal; Units: MG/DL; Status: F Test: GLOMERULAR FILTRATION RATE; Value: > 60.0; Range: >56; Status: F Test: SODIUM LEVEL; Value: 140; Range: 136-145; Units: MEQ/L; Status: F Test: POTASSIUM SERUM; Value: 4.0; Range: 3.5-5.1; Units: MEQ/L; Status: F Test: CHLORIDE LEVEL; Value: 102; Range: 98-107; Units: MEQ/L; Status: F Test: CARBON DIOXIDE LEVEL; Value: 30; Range: 21-32; Units: MEQ/L; Status: F Test: ANION GAP; Value: 8; Range: 8-16; Units: MEQ/L; Status: F Test: CALCIUM LEVEL; Value: 8.3; Range: 8.5-10.1; Abnormal: Below low normal; Units: MG/DL; Status: F Test Note: ; Units are mL/min/1.73 m2 Chronic Kidney Disease Staging per NKF: Stage I & II GFR >=60 Normal to Mildly Decreased Stage III GFR 30-59 Moderately Decreased Stage IV GFR 15-29 Severely Decreased Stage V GFR <15 Very Little GFR Left ESRD GFR <15 on CHIEF QUALITY OFFICER Lab Order: CBC with Diff; SPEC'M 06/09/16 09:55 Test: WHITE BLOOD COUNT; Value: 3.5; Range: 4.0-10.0; Abnormal: Below low normal; Units: K/mm3; Status: F Test: RED BLOOD COUNT; Value: 3.65; Range: 4.30-6.10; Abnormal: Below low normal; Units: M/mm3; Status: F Test: HEMOGLOBIN; Value: 10.9; Range: 14.0-18.0; Abnormal: Below low normal; Units: g/dl; Status: F Test: HEMATOCRIT; Value: 34.3; Range: 42.0-52.0; Abnormal: Below low normal; Units: %; Status: F Test: MEAN CORPUSCULAR VOLUME; Value: 94.0; Range: 80.0-96.0; Units: fl; Status: F Test: MEAN CORPUSCULAR HEMOGLOBIN; Value: 29.9; Range: 27.0-33.0; Units: pg; Status: F Test: MEAN CORPUSCULAR HGB CONC; Value: 31.8; Range: 32.0-36.5; Abnormal: Below low normal; Units: g/dl; Status: F Test: RED CELL DISTRIBUTION WIDTH; Value: 14.9; Range: 11.5-14.5; Abnormal: Above high normal; Units: %; Status: F Test: PLATELET COUNT, AUTOMATED; Value: 148; Range: 150-450; Abnormal: Below low normal; Units: k/mm3; Status: F Test: NEUTROPHILS %; Value: 74.2; Range: 36.0-66.0; Abnormal: Above high normal; Units: %; Status: F Test: LYMPH %; Value: 15.3; Range: 24.0-44.0; Abnormal: Below low normal; Units: %; Status: F Test: MONO %; Value: 6.6; Range: 0.0-5.0; Abnormal: Above high normal; Units: %; Status: F Test: EOS %; Value: 1.1; Range: 0.0-3.0; Units: %; Status: F Test: BASO %; Value: 0.5; Range: 0.0-1.0; Units: %; Status: F Test: LARGE UNSTAINED CELL %; Value: 2.2; Range: 0.0-4.0; Units: %; Status: F Test: NEUTROPHILS #; Value: 2.6; Range: 1.8-7.7; Units: K/mm3; Status: F Test: LYMPH #; Value: 0.6; Range: 1.5-4.5; Abnormal: Below low normal; Units: K/mm3; Status: F Test: MONO #; Value: 0.2; Range: 0.0-0.8; Units: K/mm3; Status: F Test: EOS #; Value: 0.0; Range: 0.0-0.50; Units: K/mm3; Status: F Test: BASO #; Value: 0.0; Range: 0.0-0.2; Units: K/mm3; Status: F Test: LARGE UNSTAINED CELL #; Value: 0.1; Range: 0.0-0.4; Units: K/mm3; Status: F Lab Order: Cardiac Injury Profile; 06/09/16 09:55 Test: CPK CREATINE PHOSPHOKINASE; Value: 31; Range: 39-308; Abnormal: Below low normal; Units: U/L; Status: F Test: CK-MB VALUE MASS; Value: 1.0; Range: 0.0-3.6; Units: NG/ML; Status: F Test: MB/CK RELATIVE INDEX; Value: 3.22; Range: < OR =4; Status: F Test Note: ; DIAGNOSIS CRITERIA MMB ng/ml Relative Index (RI) NON-AMI < or = 5 N/A PIPER ZONE > 5 < or = 4 AMI > 5 > 4 Lab Order: Partial Thromboplastin Time; [facility]06/09/16 09:55 Test: PARTIAL THROMBOPLASTIN TIME; Value: 38.3; Range: 26.6-37.1; Abnormal: Above high normal; Units: SECONDS; Status: F Lab Order: Troponin; [facility]06/09/16 09:55 Test: TROPONIN I; Value: < 0.02; Range: < 0.10; Units: NG/ML; Status: F Test Note: ; Troponin I Reference Interval for [place] LOCI: 99th Percentile= 0.00-0.045 ng/ml Risk Stratification: <= 0.10 ng/ml Decreased Risk for Adverse Clinical Events. 0.10-1.50 ng/ml Increased Risk for Adverse Clinical Events. Evaluation of additional criterion and/or repeat testing in 2-6 hours is suggested to rule out myocardial damage. >= 1.50 ng/ml Indicative of Myocardial Injury. Radiology Order: portable chest Test: portable chest REASON FOR EXAMINATION: Chest Pain; CHEST, ONE VIEW:; ; HISTORY: Chest pain.; ; COMPARISON: 05/31/2016.; ; There has been a decrease in the left lower lobe infiltrate compared to the; previous study. The right lung is clear. The heart is normal in size. The; pulmonary vasculature is normal in appearance.; ; IMPRESSION:; ; Left lower lobe infiltrate, decreased compared to the previous study.; ; ; Signed by; Rian López MD 06/09/2016 11:16 A; Outcome: 15:07 Discharge ordered by Provider. fg 16:25 Discharge Assessment: Patient awake, alert and oriented x 3. No cognitive and/or hs1 functional deficits noted. Patient verbalized understanding of disposition instructions. patient administered narcotics - yes. Pt provided with safe discharge. The following High Risk Discharge criteria are identified:. Condition: stable. Discharge instructions given to patient, Instructed on discharge instructions, follow up and referral plans. medication usage, Demonstrated understanding of instructions, medications, Pt was receptive of discharge instructions/ teaching. CT Study completed. Property sent home with patient. 16:26 Patient left the ED. hs1 Signatures: Dispatcher [employer] EDMS Ghazal Irby, Puff Ironer Unit deg Mercedes Esparza RN RN [facility] Madhavi Howrad, Larry Reg Agata Altamirano RN RN hs1 Tiffanie Zabala, SATELLITE SPECIALIST SATELLITE SPECIALIST ct3 Martina Thomas MD MD fg Corrections: (The following items were deleted from the chart) 09:56 09:42 Adult Sepsis Screening: The patient does not have new or worsening altered hs1 mentation. Patient's respiratory rate is less than 22. Systolic blood pressure is less than or equal to 100 (1 point). hs1 10:53 09:49 Pulse 64bpm; MonitorResp 16bpm; Pulse Ox 79%; Temp 97.1F; 56.7 kg; Height 5 ft. hs1 11 in.; BMI: 17.4; Pain 10/10; hs1 16:26 16:18 Pulse 66bpm; Monitor; Pulse Ox 100%; hs1 hs1 MTDD
--- NOTE | 2016-06-09 20:31 | REP ---
CTA chest 06/09/2016 Indication: Chest pain Comparison: CT chest with IV contrast Technique: Thoracic aorta is without aneurysm or dissection. The heart is of normal size and there are no pathologically enlarged mediastinal or hilar lymph nodes. There is hyperinflation and flattening of diaphragms consistent with COPD. There is homogeneous opacification of the pulmonary arteries bilaterally, without filling defects or visualized pulmonary emboli. Small amount of infiltrate is seen within the medial and posterior basilar segments left lower lobe, mildly improved when compared with CT chest 05/29/2016. Minimal atelectatic changes are present within the right middle lobe abutting the major fissure Impression 1. No evidence of pulmonary artery embolus 2. There has been mild improvement in the consolidation/infiltrate in medial and posterior basilar segments of the left lower lobe. Recommend follow-up to ensure resolution. 3. Small amount of atelectasis is present in the right middle lobe adjacent to the major fissure Signed by Shae East MD 06/09/2016 08:24 P
--- NOTE | 2016-06-09 20:40 | REP ---
CT of the abdomen and pelvis with IV contrast 06/09/2016 Indication : Abdominal pain Comparison: CT of the abdomen and pelvis 05/29/2016 Technique: Following IV contrast administration with 100 ml Isovue 370 mg/ml, 3 mm spiral axial sections performed through abdomen and pelvis. Findings: Liver, spleen are unremarkable. Pancreas within normal limits. There has been prior cholecystectomy. Postsurgical changes are seen in the left upper quadrant consistent with prior gastric bypass surgery . The patient has a gastrostomy tube and scattered nonspecific air-fluid levels are seen within small bowel which is mildly generous in size , and with mild mural thickening . Abdominal aorta is of normal course and caliber. Adrenal glands are normal. Kidneys are without hydronephrosis. Nonobstructing 8.5 mm calculus is seen within the lower pole right kidney. 2 cm exophytic cyst is noted off the posterior superior pole of the right kidney. There is moderate stool within the right colon and sigmoid colon, with some sparing of transverse colon. There is no free air or ascites. Patient has had previous bilateral posterior fusion at L5/S1, with disc cage at this level. There is grade 1 anterolisthesis of L5 on S1. Impression 1. Prior gastric bypass surgery. The patient has a gastrostomy tube with balloon catheter in in the distal gastric body. 2. Generalized ileus is suggested within small bowel , with scattered nonspecific air-fluid levels and mild mural thickening suggestive of nonspecific enteritis. 3. Moderate stool within the right and sigmoid colon with some sparing of the transverse colon. 4. Nonobstructing 6.5 mm calculus lower pole right kidney Signed by Shae East MD 06/09/2016 08:31 P
--- NOTE | 2016-06-10 08:01 | ECGEPIP ---
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
--- NOTE | 2016-06-11 17:27 | EDDOCDS ---
Physician Documentation [facility] Name: Edwar Stokes Age: 51 yrs Sex: Male : 1965 Arrival Date: 06/09/2016 Time: 09:39 Bed 4 Private MD: Disposition: 06/09/16 15:07 Discharged to Home/Self Care. Impression: Chest pain, unspecified, Abdominal and pelvic pain. - Condition is Stable. - Discharge Instructions: Abdominal Pain, Adult, Nonspecific Chest Pain. - Medication Reconciliation, Local Pharmacy Hours form. - Follow up: Cedric Marrero MD; When: Call to arrange an appointment; Reason: Continuance of care. - Problem is new. - Symptoms have improved. Historical: - Allergies: no known allergies; - Home Meds: 1. Carafate 100 mg/mL Oral susp 10 mL 4 times per day (Last dose: 06/08/2016) 2. cyanocobalamin (vitamin B-12) 1,000 mcg oral tab every 3 days (Last dose: 06/08/2016) 3. oxycodone 20 mg Oral tab 1 tab every 4 hours (Last dose: 06/09/2016 00:00) 4. omeprazole 40 mg Oral cpDR 1 cap 2 times per day (Last dose: 06/08/2016) 5. multivitamin Oral tab 1 tab daily (Last dose: 06/08/2016) 6. azithromycin 250 mg Oral tab 1 tab once daily (Last dose: 06/08/2016) 7. vitamin D-3 1000 units daily (Last dose: 06/08/2016) 8. Tab-A-Christian oral tab twice a day (Last dose: 06/08/2016) 9. senna 8.6 mg oral tab 1 tabs twice a day (Last dose: 06/08/2016) 10. zinc gluconate 50 mg oral tab daily (Last dose: 06/08/2016) 11. Oysco-500 500 mg calcium (1,250 mg) oral tab twice a day (Last dose: 06/08/2016) - PMHx: c diff; chronic abdominal pain; esophageal strictures; GERD; opiate abuse; opiate dependency; - PSHx: Appendectomy; repair right tendon repair; Hernia repair- Umbilical; Gastric Bypass; G-Tube Insertion; Cholecystectomy; - Social history: Smoking status: Patient uses tobacco products, current some day smoker. No barriers to communication noted, The patient speaks fluent Albanian, Speaks appropriately for age. - Family history: Not pertinent. - : The pt / caregiver states he / she is not on anticoagulants. Home medication list is obtained from a discharge med list. - Exposure Risk Screening:: None identified. Vital Signs: 06/09 09:49 BP 96 / 61 (auto/); hs1 09:49 Pulse 64 MON; Resp 16; Temp 97.1; Pulse Ox 99% on R/A; Weight 56.7 kg / 125 lbs; Height hs1 5 ft. 11 in. (180.34 cm); Pain 10/10; 10:18 BP 102 / 69 (auto/); hs1 10:19 Pulse 60 MON; Pulse Ox 100% ; hs1 10:33 BP 98 / 68 (auto/); hs1 10:34 Pulse 60 MON; Pulse Ox 100% ; hs1 10:48 BP 99 / 69 (auto/); hs1 10:49 Pulse 60 MON; Pulse Ox 100% ; hs1 11:03 BP 97 / 63 (auto/); hs1 11:05 Pulse 58 MON; Pulse Ox 100% ; hs1 11:18 BP 100 / 72 (auto/); hs1 11:19 Pulse 58 MON; Pulse Ox 100% ; hs1 11:33 BP 90 / 55 (auto/); hs1 11:34 Pulse 58 MON; Pulse Ox 99% ; hs1 11:48 BP 98 / 65 (auto/); hs1 11:49 Pulse 60 MON; Pulse Ox 100% ; hs1 12:03 BP 101 / 68 (auto/); hs1 12:04 Pulse 60 MON; Pulse Ox 100% ; hs1 12:18 BP 96 / 65 (auto/); hs1 12:19 Pulse 60 MON; Pulse Ox 100% ; hs1 12:33 BP 94 / 60 (auto/); hs1 12:34 Pulse 58 MON; Pulse Ox 100% ; hs1 12:48 BP 103 / 67 (auto/); hs1 12:49 Pulse 66 MON; Pulse Ox 100% ; hs1 13:03 BP 100 / 68 (auto/); hs1 13:04 Pulse 56 MON; Pulse Ox 99% ; hs1 13:18 BP 96 / 65 (auto/); hs1 13:19 Pulse 58 MON; Pulse Ox 99% ; hs1 13:33 BP 96 / 66 (auto/); hs1 13:33 Pulse 62 MON; Pulse Ox 99% ; hs1 13:48 BP 95 / 65 (auto/); hs1 13:48 Pulse 62 MON; Pulse Ox 99% ; hs1 14:03 BP 95 / 66 (auto/); hs1 14:03 Pulse 66 MON; Pulse Ox 99% ; hs1 14:17 Pulse 62 MON; Pulse Ox 99% ; hs1 14:18 BP 98 / 71 (auto/); hs1 14:33 BP 99 / 61 (auto/); hs1 14:33 Pulse 62 MON; Pulse Ox 99% ; hs1 14:48 BP 97 / 62 (auto/); hs1 14:48 Pulse 66 MON; Pulse Ox 99% ; hs1 15:03 BP 96 / 64 (auto/); hs1 15:03 Pulse 62 MON; Pulse Ox 100% ; hs1 15:18 BP 96 / 64 (auto/); hs1 15:19 Pulse 62 MON; Pulse Ox 100% ; hs1 15:48 BP 98 / 66 (auto/); hs1 15:48 Pulse 56 MON; hs1 16:03 BP 95 / 63 (auto/); hs1 16:03 Pulse 58 MON; hs1 16:18 BP 98 / 63 (auto/); hs1 16:18 Pulse 66 MON; Resp 18; Temp 99.7(TE); Pulse Ox 100% ; Pain 9/10; hs1 09:49 Body Mass Index 17.43 (56.70 kg, 180.34 cm) hs1 MDM: 09:46 Aspirin Chewable Tablet 324 mg PO once ordered. fg 09:46 Signal Operator Linguist/Pulse Ox/q 30 min VS ordered. fg 09:46 IV Saline Lock ordered. fg 09:46 Rhythm Strip to chart ordered. fg 09:46 Undress patient appropriately for examination ordered. fg 09:47 B-Type Natiuretic Peptide Ordered. EDMS 09:47 Basic Metabolic Profile Ordered. EDMS 09:47 CBC with Diff Ordered. EDMS 09:47 Cardiac Injury Profile Ordered. EDMS 09:47 Partial Thromboplastin Time Ordered. EDMS 09:47 Troponin Ordered. EDMS 09:48 portable chest Ordered. EDMS 09:48 ECG WITH READING ER PHYS+CARDIAG ordered. EDMS 10:11 Financial registration complete. lg 10:13 [facility] Payment Agreement was scanned into [employer] and attached to record. lg 10:51 morphine 2 mg IVP once ordered. fg 10:54 CT Chest Angio R/O PE Ordered. EDMS 10:55 CT ABD & PELVIS: IV Contrast Only Ordered. EDMS 12:40 Dilaudid - HYDROmorphone 1 mg IVP once ordered. fg 14:47 oxyCODONE-acetaminophen 5 mg-325 mg 1 tabs PO once ordered. fg 14:47 LORazepam 0.5 mg PO once ordered. fg 06/10 11:12 T-Sheet-- Draft Copy was scanned into [employer] and attached to record. gb 11:12 ECG/EKG was scanned into [employer] and attached to record. gb 11:12 Rhythm Strip was scanned into [employer] and attached to record. gb Administered Medications: 06/09 09:59 Drug: Aspirin 324 mg [aspirin 81 mg chewable tablet (4 tabs)] Route: PO; srm 11:04 Drug: morphine 2 mg [morphine 2 mg/mL intravenous cartridge (1 mL)] Route: IVP; Site: hs1 left antecubital; 12:50 Drug: Dilaudid - HYDROmorphone 1 mg [hydromorphone 1 mg/mL injection syringe (1 mL)] hs1 Route: IVP; Site: left antecubital; 14:58 Drug: oxyCODONE-acetaminophen 1 tabs [oxycodone-acetaminophen 5 mg-325 mg tablet (1 hs1 tabs)] Route: PO; 14:58 Drug: LORazepam 0.5 mg [lorazepam 1 mg tablet (0.5 tabs)] Route: PO; hs1 Signatures: Dispatcher [employer] EDMS Anika Ayala, Reg Reg gb Madhavi Howard, Reg Reg lg Agata Altamirano RN RN hs1 Martina Thomas MD MD fg Michelson, Staci RN [facility] The chart was reviewed and I authenticate all verbal orders and agree with the evaluation and treatment provided.Attachments: 10:13 [facility] Payment Agreement lg 06/10 11:12 T-Sheet-- Draft Copy gb 11:12 ECG/EKG gb Chart Complete MTDD
--- NOTE | 2016-06-11 17:27 | EDDOCDS ---
Physician Documentation [facility] Name: Edwar Stokes Age: 51 yrs Sex: Male : 1965 Arrival Date: 06/09/2016 Time: 09:39 Bed 4 Private MD: Disposition: 06/09/16 15:07 Discharged to Home/Self Care. Impression: Chest pain, unspecified, Abdominal and pelvic pain. - Condition is Stable. - Discharge Instructions: Abdominal Pain, Adult, Nonspecific Chest Pain. - Medication Reconciliation, Local Pharmacy Hours form. - Follow up: Cedric Marrero MD; When: Call to arrange an appointment; Reason: Continuance of care. - Problem is new. - Symptoms have improved. Historical: - Allergies: no known allergies; - Home Meds: 1. Carafate 100 mg/mL Oral susp 10 mL 4 times per day (Last dose: 06/08/2016) 2. cyanocobalamin (vitamin B-12) 1,000 mcg oral tab every 3 days (Last dose: 06/08/2016) 3. oxycodone 20 mg Oral tab 1 tab every 4 hours (Last dose: 06/09/2016 00:00) 4. omeprazole 40 mg Oral cpDR 1 cap 2 times per day (Last dose: 06/08/2016) 5. multivitamin Oral tab 1 tab daily (Last dose: 06/08/2016) 6. azithromycin 250 mg Oral tab 1 tab once daily (Last dose: 06/08/2016) 7. vitamin D-3 1000 units daily (Last dose: 06/08/2016) 8. Tab-A-Christian oral tab twice a day (Last dose: 06/08/2016) 9. senna 8.6 mg oral tab 1 tabs twice a day (Last dose: 06/08/2016) 10. zinc gluconate 50 mg oral tab daily (Last dose: 06/08/2016) 11. Oysco-500 500 mg calcium (1,250 mg) oral tab twice a day (Last dose: 06/08/2016) - PMHx: c diff; chronic abdominal pain; esophageal strictures; GERD; opiate abuse; opiate dependency; - PSHx: Appendectomy; repair right tendon repair; Hernia repair- Umbilical; Gastric Bypass; G-Tube Insertion; Cholecystectomy; - Social history: Smoking status: Patient uses tobacco products, current some day smoker. No barriers to communication noted, The patient speaks fluent Amharic, Speaks appropriately for age. - Family history: Not pertinent. - : The pt / caregiver states he / she is not on anticoagulants. Home medication list is obtained from a discharge med list. - Exposure Risk Screening:: None identified. Vital Signs: 06/09 09:49 BP 96 / 61 (auto/); hs1 09:49 Pulse 64 MON; Resp 16; Temp 97.1; Pulse Ox 99% on R/A; Weight 56.7 kg / 125 lbs; Height hs1 5 ft. 11 in. (180.34 cm); Pain 10/10; 10:18 BP 102 / 69 (auto/); hs1 10:19 Pulse 60 MON; Pulse Ox 100% ; hs1 10:33 BP 98 / 68 (auto/); hs1 10:34 Pulse 60 MON; Pulse Ox 100% ; hs1 10:48 BP 99 / 69 (auto/); hs1 10:49 Pulse 60 MON; Pulse Ox 100% ; hs1 11:03 BP 97 / 63 (auto/); hs1 11:05 Pulse 58 MON; Pulse Ox 100% ; hs1 11:18 BP 100 / 72 (auto/); hs1 11:19 Pulse 58 MON; Pulse Ox 100% ; hs1 11:33 BP 90 / 55 (auto/); hs1 11:34 Pulse 58 MON; Pulse Ox 99% ; hs1 11:48 BP 98 / 65 (auto/); hs1 11:49 Pulse 60 MON; Pulse Ox 100% ; hs1 12:03 BP 101 / 68 (auto/); hs1 12:04 Pulse 60 MON; Pulse Ox 100% ; hs1 12:18 BP 96 / 65 (auto/); hs1 12:19 Pulse 60 MON; Pulse Ox 100% ; hs1 12:33 BP 94 / 60 (auto/); hs1 12:34 Pulse 58 MON; Pulse Ox 100% ; hs1 12:48 BP 103 / 67 (auto/); hs1 12:49 Pulse 66 MON; Pulse Ox 100% ; hs1 13:03 BP 100 / 68 (auto/); hs1 13:04 Pulse 56 MON; Pulse Ox 99% ; hs1 13:18 BP 96 / 65 (auto/); hs1 13:19 Pulse 58 MON; Pulse Ox 99% ; hs1 13:33 BP 96 / 66 (auto/); hs1 13:33 Pulse 62 MON; Pulse Ox 99% ; hs1 13:48 BP 95 / 65 (auto/); hs1 13:48 Pulse 62 MON; Pulse Ox 99% ; hs1 14:03 BP 95 / 66 (auto/); hs1 14:03 Pulse 66 MON; Pulse Ox 99% ; hs1 14:17 Pulse 62 MON; Pulse Ox 99% ; hs1 14:18 BP 98 / 71 (auto/); hs1 14:33 BP 99 / 61 (auto/); hs1 14:33 Pulse 62 MON; Pulse Ox 99% ; hs1 14:48 BP 97 / 62 (auto/); hs1 14:48 Pulse 66 MON; Pulse Ox 99% ; hs1 15:03 BP 96 / 64 (auto/); hs1 15:03 Pulse 62 MON; Pulse Ox 100% ; hs1 15:18 BP 96 / 64 (auto/); hs1 15:19 Pulse 62 MON; Pulse Ox 100% ; hs1 15:48 BP 98 / 66 (auto/); hs1 15:48 Pulse 56 MON; hs1 16:03 BP 95 / 63 (auto/); hs1 16:03 Pulse 58 MON; hs1 16:18 BP 98 / 63 (auto/); hs1 16:18 Pulse 66 MON; Resp 18; Temp 99.7(TE); Pulse Ox 100% ; Pain 9/10; hs1 09:49 Body Mass Index 17.43 (56.70 kg, 180.34 cm) hs1 MDM: 09:46 Aspirin Chewable Tablet 324 mg PO once ordered. fg 09:46 Business Partner/Pulse Ox/q 30 min VS ordered. fg 09:46 IV Saline Lock ordered. fg 09:46 Rhythm Strip to chart ordered. fg 09:46 Undress patient appropriately for examination ordered. fg 09:47 B-Type Natiuretic Peptide Ordered. EDMS 09:47 Basic Metabolic Profile Ordered. EDMS 09:47 CBC with Diff Ordered. EDMS 09:47 Cardiac Injury Profile Ordered. EDMS 09:47 Partial Thromboplastin Time Ordered. EDMS 09:47 Troponin Ordered. EDMS 09:48 portable chest Ordered. EDMS 09:48 ECG WITH READING ER PHYS+CARDIAG ordered. EDMS 10:11 Financial registration complete. lg 10:13 [facility] Payment Agreement was scanned into [employer] and attached to record. lg 10:51 morphine 2 mg IVP once ordered. fg 10:54 CT Chest Angio R/O PE Ordered. EDMS 10:55 CT ABD & PELVIS: IV Contrast Only Ordered. EDMS 12:40 Dilaudid - HYDROmorphone 1 mg IVP once ordered. fg 14:47 oxyCODONE-acetaminophen 5 mg-325 mg 1 tabs PO once ordered. fg 14:47 LORazepam 0.5 mg PO once ordered. fg 06/10 11:12 T-Sheet-- Draft Copy was scanned into [employer] and attached to record. gb 11:12 ECG/EKG was scanned into [employer] and attached to record. gb 11:12 Rhythm Strip was scanned into [employer] and attached to record. gb Administered Medications: 06/09 09:59 Drug: Aspirin 324 mg [aspirin 81 mg chewable tablet (4 tabs)] Route: PO; srm 11:04 Drug: morphine 2 mg [morphine 2 mg/mL intravenous cartridge (1 mL)] Route: IVP; Site: hs1 left antecubital; 12:50 Drug: Dilaudid - HYDROmorphone 1 mg [hydromorphone 1 mg/mL injection syringe (1 mL)] hs1 Route: IVP; Site: left antecubital; 14:58 Drug: oxyCODONE-acetaminophen 1 tabs [oxycodone-acetaminophen 5 mg-325 mg tablet (1 hs1 tabs)] Route: PO; 14:58 Drug: LORazepam 0.5 mg [lorazepam 1 mg tablet (0.5 tabs)] Route: PO; hs1 Signatures: Dispatcher [employer] EDMS Anika Ayala, Reg Reg gb Madhavi Howard, Reg Reg lg Agata Altamirano RN RN hs1 Martina Thomas MD MD fg Michelson, Staci RN [facility] The chart was reviewed and I authenticate all verbal orders and agree with the evaluation and treatment provided.Attachments: 10:13 [facility] Payment Agreement lg 06/10 11:12 T-Sheet-- Draft Copy gb 11:12 ECG/EKG gb Chart Complete MTDD
--- NOTE | 2016-06-11 17:28 | EDDOCDS ---
Nurse's Notes [facility] Name: Edwar Coleman Age: 51 yrs Sex: Male : 1965 Arrival Date: 06/09/2016 Time: 09:39 Bed 4 Private MD: Diagnosis: Chest pain, unspecified;Abdominal and pelvic pain Presentation: 06/09 09:42 Presenting complaint: EMS states: while at Dr Zapata office patient complaining of hs1 chest pain, abdominal pains and general pain all over. EMS started IV 20 gauge in Left AC. SR on monitor. Glucose 132 mg/dL. Hx of gastric bypass 2012 and now has continuous feeding tube. Patient also has recent admission for pneumonia. Aspirin was not taken prior to arrival. Adult Sepsis Screening: The patient does not have new or worsening altered mentation. Patient's respiratory rate is less than 22. Systolic blood pressure is less than or equal to 100 (1 point). Patient has a qSOFA score of 1- Negative Sepsis Screen. 09:42 Acuity: ANA Level 3 hs1 09:56 Suicide/Homicide risk assessment- the patient denies having any suicidal and/or hs1 homicidal ideations and does not present with any other emotional, behavioral or mental health complaints. Status: Patient is not a servicer or dependent. Transition of care: patient was not received from another setting of care. 09:56 Method Of Arrival: Ambulance hs1 Triage Assessment: 09:50 General: Appears in no apparent distress, cachectic, Behavior is appropriate for age, hs1 cooperative. Pain: Location: chest and abdomen Pain currently is 10 out of 10 on a pain scale. HIV screening NA for this visit Offered previously. Neurological: No deficits noted. Cardiovascular: Chest pain is described as severe, radiates Does not radiate. episodes are continuous began began last night. Respiratory: Airway is patent Respiratory effort is even, unlabored, Respiratory pattern is regular, symmetrical, Breath sounds are clear bilaterally. GI: Enteral feeding tube with tube feeding infusing. Derm: Skin is pink, warm & dry. normal. Historical: - Allergies: no known allergies; - Home Meds: 1. Carafate 100 mg/mL Oral susp 10 mL 4 times per day (Last dose: 06/08/2016) 2. cyanocobalamin (vitamin B-12) 1,000 mcg oral tab every 3 days (Last dose: 06/08/2016) 3. oxycodone 20 mg Oral tab 1 tab every 4 hours (Last dose: 06/09/2016 00:00) 4. omeprazole 40 mg Oral cpDR 1 cap 2 times per day (Last dose: 06/08/2016) 5. multivitamin Oral tab 1 tab daily (Last dose: 06/08/2016) 6. azithromycin 250 mg Oral tab 1 tab once daily (Last dose: 06/08/2016) 7. vitamin D-3 1000 units daily (Last dose: 06/08/2016) 8. Tab-A-Christian oral tab twice a day (Last dose: 06/08/2016) 9. senna 8.6 mg oral tab 1 tabs twice a day (Last dose: 06/08/2016) 10. zinc gluconate 50 mg oral tab daily (Last dose: 06/08/2016) 11. Oysco-500 500 mg calcium (1,250 mg) oral tab twice a day (Last dose: 06/08/2016) - PMHx: c diff; chronic abdominal pain; esophageal strictures; GERD; opiate abuse; opiate dependency; - PSHx: Appendectomy; repair right tendon repair; Hernia repair- Umbilical; Gastric Bypass; G-Tube Insertion; Cholecystectomy; - Social history: Smoking status: Patient uses tobacco products, current some day smoker. No barriers to communication noted, The patient speaks fluent Czech, Speaks appropriately for age. - Family history: Not pertinent. - : The pt / caregiver states he / she is not on anticoagulants. Home medication list is obtained from a discharge med list. - Exposure Risk Screening:: None identified. Screenin:54 Screening information is obtained from the patient. Fall risk: At risk due to gait hs1 disturbance, use of cane. Assistance ADL's: requires no assistance with activities of daily living. Abuse/DV Screen: The patient / caregiver reports he/she is: not in a situation that causes fear, pain or injury. Nutritional screening: On tube feeding - Jevity 1. Advance Directives: There is no active DNR order. home support is adequate. Assessment: 10:02 General: Appears cachectic, Behavior is appropriate for age. Pain: Location: chest and hs1 abdomen Pain currently is 10 out of 10 on a pain scale. Neurological: Level of Consciousness is awake, alert, obeys commands. Cardiovascular: Rhythm is sinus rhythm No ectopy. Respiratory: Airway is patent Respiratory effort is even, unlabored, Respiratory pattern is regular, symmetrical. Derm: Skin is pink, warm & dry. normal. 11:41 General: Appears in no apparent distress, cachectic, Behavior is appropriate for age, hs1 cooperative. Pain:. 12:23 Adult Sepsis Screening: The patient does not have new or worsening altered mentation. hs1 Patient's respiratory rate is less than 22. Systolic blood pressure is less than or equal to 100 (1 point). Patient has a qSOFA score of 1- Negative Sepsis Screen. General: Appears cachectic, Behavior is appropriate for age, cooperative. Pain: Location: all over Pain currently is 9 out of 10 on a pain scale. Neurological: Level of Consciousness is awake, alert. Cardiovascular: Rhythm is sinus rhythm No ectopy. Respiratory: No deficits noted. Vital Signs: 09:49 BP 96 / 61 (auto/); hs1 09:49 Pulse 64 MON; Resp 16; Temp 97.1; Pulse Ox 99% on R/A; Weight 56.7 kg; Height 5 ft. 11 hs1 in. (180.34 cm); Pain 10/10; 10:18 BP 102 / 69 (auto/); hs1 10:19 Pulse 60 MON; Pulse Ox 100% ; hs1 10:33 BP 98 / 68 (auto/); hs1 10:34 Pulse 60 MON; Pulse Ox 100% ; hs1 10:48 BP 99 / 69 (auto/); hs1 10:49 Pulse 60 MON; Pulse Ox 100% ; hs1 11:03 BP 97 / 63 (auto/); hs1 11:05 Pulse 58 MON; Pulse Ox 100% ; hs1 11:18 BP 100 / 72 (auto/); hs1 11:19 Pulse 58 MON; Pulse Ox 100% ; hs1 11:33 BP 90 / 55 (auto/); hs1 11:34 Pulse 58 MON; Pulse Ox 99% ; hs1 11:48 BP 98 / 65 (auto/); hs1 11:49 Pulse 60 MON; Pulse Ox 100% ; hs1 12:03 BP 101 / 68 (auto/); hs1 12:04 Pulse 60 MON; Pulse Ox 100% ; hs1 12:18 BP 96 / 65 (auto/); hs1 12:19 Pulse 60 MON; Pulse Ox 100% ; hs1 12:33 BP 94 / 60 (auto/); hs1 12:34 Pulse 58 MON; Pulse Ox 100% ; hs1 12:48 BP 103 / 67 (auto/); hs1 12:49 Pulse 66 MON; Pulse Ox 100% ; hs1 13:03 BP 100 / 68 (auto/); hs1 13:04 Pulse 56 MON; Pulse Ox 99% ; hs1 13:18 BP 96 / 65 (auto/); hs1 13:19 Pulse 58 MON; Pulse Ox 99% ; hs1 13:33 BP 96 / 66 (auto/); hs1 13:33 Pulse 62 MON; Pulse Ox 99% ; hs1 13:48 BP 95 / 65 (auto/); hs1 13:48 Pulse 62 MON; Pulse Ox 99% ; hs1 14:03 BP 95 / 66 (auto/); hs1 14:03 Pulse 66 MON; Pulse Ox 99% ; hs1 14:17 Pulse 62 MON; Pulse Ox 99% ; hs1 14:18 BP 98 / 71 (auto/); hs1 14:33 BP 99 / 61 (auto/); hs1 14:33 Pulse 62 MON; Pulse Ox 99% ; hs1 14:48 BP 97 / 62 (auto/); hs1 14:48 Pulse 66 MON; Pulse Ox 99% ; hs1 15:03 BP 96 / 64 (auto/); hs1 15:03 Pulse 62 MON; Pulse Ox 100% ; hs1 15:18 BP 96 / 64 (auto/); hs1 15:19 Pulse 62 MON; Pulse Ox 100% ; hs1 15:48 BP 98 / 66 (auto/); hs1 15:48 Pulse 56 MON; hs1 16:03 BP 95 / 63 (auto/); hs1 16:03 Pulse 58 MON; hs1 16:18 BP 98 / 63 (auto/); hs1 16:18 Pulse 66 MON; Resp 18; Temp 99.7(TE); Pulse Ox 100% ; Pain 9/10; hs1 09:49 Body Mass Index 17.43 (56.70 kg, 180.34 cm) hs1 Vitals: 09:49 Log In Time N/A - ambulance arrival. hs1 ED Course: 09:40 Patient visited by Ghazal Irby, Valve Machine Operator. deg 09:40 Patient moved to Waiting deg 09:40 Patient moved to 4 deg 09:45 Martina Thomas MD is Attending Physician. fg 09:45 Patient visited by Martina Thomas MD. fg 09:47 Triage Initiated hs1 09:54 Maintain field IV. Dressing intact. Good blood return noted. Site clean & dry. Gauge & hs1 site: 20 Gauge Left AC. Flushed. 09:56 The patient / caregiver is instructed regarding the plan of care and ED course. Patient hs1 has correct armband on for positive identification. Placed in gown. Bed in low position. Call light in reach. Side rails up X2. patient monitor on. Pulse ox on. NIBP on. 09:56 B-Type Natiuretic Peptide Sent. srm 09:56 Basic Metabolic Profile Sent. srm 09:56 CBC with Diff Sent. srm 09:56 Cardiac Injury Profile Sent. srm 09:56 Partial Thromboplastin Time Sent. srm 09:56 Troponin Sent. srm 10:06 EKG done. (by ED staff). Reviewed by Martina Thomas MD. ct3 10:07 Patient visited by Tiffanie Zabala PCA. ct3 10:13 [facility] Payment Agreement was scanned into [employer] and attached to record. lg 10:44 portable chest Returned. EDMS 10:50 Patient visited by Agata Altamirano RN. hs1 11:41 Patient visited by Agata Altamirano, KRISTOFER. hs1 12:36 Patient visited by Agata Altamirano, KRISTOFER. hs1 13:15 Patient visited by Tiffanie Zabala PCA. ct3 14:29 Patient visited by Martina Thomas MD. fg 15:07 Cedric Marrero MD is Referral Physician. fg 16:25 Discontinued IV lock intact, bleeding controlled, pressure dressing applied, No hs1 redness/swelling at site. No procedures done that require assistance. 20:35 CT Chest Angio R/O PE Returned. EDMS 21:25 CT ABD & PELVIS: IV Contrast Only Returned. EDMS 06/10 08:09 EKG-ADULT Returned. EDMS 11:12 T-Sheet-- Draft Copy was scanned into [employer] and attached to record. gb 11:12 ECG/EKG was scanned into [employer] and attached to record. gb 11:12 Rhythm Strip was scanned into [employer] and attached to record. gb Administered Medications: 06/09 09:59 Drug: Aspirin 324 mg [aspirin 81 mg chewable tablet (4 tabs)] Route: PO; [facility] 11:04 Drug: morphine 2 mg [morphine 2 mg/mL intravenous cartridge (1 mL)] Route: IVP; Site: hs1 left antecubital; 12:50 Drug: Dilaudid - HYDROmorphone 1 mg [hydromorphone 1 mg/mL injection syringe (1 mL)] hs1 Route: IVP; Site: left antecubital; 14:58 Drug: oxyCODONE-acetaminophen 1 tabs [oxycodone-acetaminophen 5 mg-325 mg tablet (1 hs1 tabs)] Route: PO; 14:58 Drug: LORazepam 0.5 mg [lorazepam 1 mg tablet (0.5 tabs)] Route: PO; hs1 Attachments: 11:12 Rhythm Strip gb Order Results: Lab Order: B-Type Natiuretic Peptide; SPEC'M 06/09/16 09:55 Test: BRAIN NATRIURETIC PEPTIDE; Value: 5.7; Range: <100; Units: PG/ML; Status: F Lab Order: Basic Metabolic Profile; SPEC'M 06/09/16 09:55 Test: GLUCOSE, FASTING; Value: 102; Range: 70-105; Units: MG/DL; Status: F Test: BLOOD UREA NITROGEN; Value: 14; Range: 7-18; Units: MG/DL; Status: F Test: CREATININE FOR GFR; Value: 0.56; Range: 0.70-1.30; Abnormal: Below low normal; Units: MG/DL; Status: F Test: GLOMERULAR FILTRATION RATE; Value: > 60.0; Range: >56; Status: F Test: SODIUM LEVEL; Value: 140; Range: 136-145; Units: MEQ/L; Status: F Test: POTASSIUM SERUM; Value: 4.0; Range: 3.5-5.1; Units: MEQ/L; Status: F Test: CHLORIDE LEVEL; Value: 102; Range: 98-107; Units: MEQ/L; Status: F Test: CARBON DIOXIDE LEVEL; Value: 30; Range: 21-32; Units: MEQ/L; Status: F Test: ANION GAP; Value: 8; Range: 8-16; Units: MEQ/L; Status: F Test: CALCIUM LEVEL; Value: 8.3; Range: 8.5-10.1; Abnormal: Below low normal; Units: MG/DL; Status: F Test Note: ; Units are mL/min/1.73 m2 Chronic Kidney Disease Staging per NKF: Stage I & II GFR >=60 Normal to Mildly Decreased Stage III GFR 30-59 Moderately Decreased Stage IV GFR 15-29 Severely Decreased Stage V GFR <15 Very Little GFR Left ESRD GFR <15 on MATHEMATICS PROFESSOR Lab Order: CBC with Diff; SPEC'M 06/09/16 09:55 Test: WHITE BLOOD COUNT; Value: 3.5; Range: 4.0-10.0; Abnormal: Below low normal; Units: K/mm3; Status: F Test: RED BLOOD COUNT; Value: 3.65; Range: 4.30-6.10; Abnormal: Below low normal; Units: M/mm3; Status: F Test: HEMOGLOBIN; Value: 10.9; Range: 14.0-18.0; Abnormal: Below low normal; Units: g/dl; Status: F Test: HEMATOCRIT; Value: 34.3; Range: 42.0-52.0; Abnormal: Below low normal; Units: %; Status: F Test: MEAN CORPUSCULAR VOLUME; Value: 94.0; Range: 80.0-96.0; Units: fl; Status: F Test: MEAN CORPUSCULAR HEMOGLOBIN; Value: 29.9; Range: 27.0-33.0; Units: pg; Status: F Test: MEAN CORPUSCULAR HGB CONC; Value: 31.8; Range: 32.0-36.5; Abnormal: Below low normal; Units: g/dl; Status: F Test: RED CELL DISTRIBUTION WIDTH; Value: 14.9; Range: 11.5-14.5; Abnormal: Above high normal; Units: %; Status: F Test: PLATELET COUNT, AUTOMATED; Value: 148; Range: 150-450; Abnormal: Below low normal; Units: k/mm3; Status: F Test: NEUTROPHILS %; Value: 74.2; Range: 36.0-66.0; Abnormal: Above high normal; Units: %; Status: F Test: LYMPH %; Value: 15.3; Range: 24.0-44.0; Abnormal: Below low normal; Units: %; Status: F Test: MONO %; Value: 6.6; Range: 0.0-5.0; Abnormal: Above high normal; Units: %; Status: F Test: EOS %; Value: 1.1; Range: 0.0-3.0; Units: %; Status: F Test: BASO %; Value: 0.5; Range: 0.0-1.0; Units: %; Status: F Test: LARGE UNSTAINED CELL %; Value: 2.2; Range: 0.0-4.0; Units: %; Status: F Test: NEUTROPHILS #; Value: 2.6; Range: 1.8-7.7; Units: K/mm3; Status: F Test: LYMPH #; Value: 0.6; Range: 1.5-4.5; Abnormal: Below low normal; Units: K/mm3; Status: F Test: MONO #; Value: 0.2; Range: 0.0-0.8; Units: K/mm3; Status: F Test: EOS #; Value: 0.0; Range: 0.0-0.50; Units: K/mm3; Status: F Test: BASO #; Value: 0.0; Range: 0.0-0.2; Units: K/mm3; Status: F Test: LARGE UNSTAINED CELL #; Value: 0.1; Range: 0.0-0.4; Units: K/mm3; Status: F Lab Order: Cardiac Injury Profile; SPEC'M 06/09/16 09:55 Test: CPK CREATINE PHOSPHOKINASE; Value: 31; Range: 39-308; Abnormal: Below low normal; Units: U/L; Status: F Test: CK-MB VALUE MASS; Value: 1.0; Range: 0.0-3.6; Units: NG/ML; Status: F Test: MB/CK RELATIVE INDEX; Value: 3.22; Range: < OR =4; Status: F Test Note: ; DIAGNOSIS CRITERIA MMB ng/ml Relative Index (RI) NON-AMI < or = 5 N/A PIPER ZONE > 5 < or = 4 AMI > 5 > 4 Lab Order: Partial Thromboplastin Time; SPEC'M 06/09/16 09:55 Test: PARTIAL THROMBOPLASTIN TIME; Value: 38.3; Range: 26.6-37.1; Abnormal: Above high normal; Units: SECONDS; Status: F Lab Order: Troponin; IMANI'M 06/09/16 09:55 Test: TROPONIN I; Value: < 0.02; Range: < 0.10; Units: NG/ML; Status: F Test Note: ; Troponin I Reference Interval for Siemens [place] LOCI: 99th Percentile= 0.00-0.045 ng/ml Risk Stratification: <= 0.10 ng/ml Decreased Risk for Adverse Clinical Events. 0.10-1.50 ng/ml Increased Risk for Adverse Clinical Events. Evaluation of additional criterion and/or repeat testing in 2-6 hours is suggested to rule out myocardial damage. >= 1.50 ng/ml Indicative of Myocardial Injury. Radiology Order: portable chest Test: portable chest REASON FOR EXAMINATION: Chest Pain; CHEST, ONE VIEW:; ; HISTORY: Chest pain.; ; COMPARISON: 05/31/2016.; ; There has been a decrease in the left lower lobe infiltrate compared to the; previous study. The right lung is clear. The heart is normal in size. 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: ct; : 1965 Requested By: MARTINA Ruth; Order Number: [id number] Reading MD: Kathryn Berg; Measurements; Intervals [place]; Rate: 72 P: 69; SD: 191 QRS: 0; QRSD: 94 T: 43; QT: 377; QTc: 413; Interpretive Statements; SINUS RHYTHM; LOW VOLTAGE LIMB; INCREASED RATE 05/31/16; Electronically Signed On 06-10-2016 8:01:20 EST by Kathryn Berg; Radiology Order: CT Chest Angio R/O PE Test: CT Chest Angio R/O PE REASON FOR EXAMINATION: Chest Pain; CTA chest 06/09/2016; ; Indication: Chest pain; ; Comparison: CT chest with IV contrast ; ; Technique: Thoracic aorta is without aneurysm or dissection. The heart is of; normal size and there are no pathologically enlarged mediastinal or hilar lymph; nodes. There is hyperinflation and flattening of diaphragms consistent with; COPD.; ; There is homogeneous opacification of the pulmonary arteries bilaterally, without; filling defects or visualized pulmonary emboli.; ; Small amount of infiltrate is seen within the medial and posterior basilar; segments left lower lobe, mildly improved when compared with CT chest 05/29/2016.; Minimal atelectatic changes are present within the right middle lobe abutting the; major fissure; ; Impression; 1. No evidence of pulmonary artery embolus; 2. There has been mild improvement in the consolidation/infiltrate in medial and; posterior basilar segments of the left lower lobe. Recommend follow-up to ensure; resolution.; 3. Small amount of atelectasis is present in the right middle lobe adjacent to; the major fissure; ; ; Signed by; Shae East MD 06/09/2016 08:24 P; Radiology Order: CT ABD & PELVIS: IV Contrast Only Test: CT ABD & PELVIS: IV Contrast Only REASON FOR EXAMINATION: Abdomen Pain; CT of the abdomen and pelvis with IV contrast 06/09/2016; ; Indication : Abdominal pain; ; Comparison: CT of the abdomen and pelvis 05/29/2016; ; Technique: Following IV contrast administration with 100 ml Isovue 370 mg/ml, 3; mm spiral axial sections performed through abdomen and pelvis.; ; Findings: Liver, spleen are unremarkable. Pancreas within normal limits. There; has been prior cholecystectomy. Postsurgical changes are seen in the left upper; quadrant consistent with prior gastric bypass surgery . The patient has a; gastrostomy tube and scattered nonspecific air-fluid levels are seen within; small bowel which is mildly generous in size , and with mild mural thickening .; Abdominal aorta is of normal course and caliber. Adrenal glands are normal.; Kidneys are without hydronephrosis. Nonobstructing 8.5 mm calculus is seen; within the lower pole right kidney. 2 cm exophytic cyst is noted off the; posterior superior pole of the right kidney.; ; There is moderate stool within the right colon and sigmoid colon, with some; sparing of transverse colon. There is no free air or ascites.; ; Patient has had previous bilateral posterior fusion at L5/S1, with disc cage at; this level. There is grade 1 anterolisthesis of L5 on S1.; ; Impression; 1. Prior gastric bypass surgery. The patient has a gastrostomy tube with; balloon catheter in in the distal gastric body.; 2. Generalized ileus is suggested within small bowel , with scattered; nonspecific air-fluid levels and mild mural thickening suggestive of nonspecific; enteritis.; 3. Moderate stool within the right and sigmoid colon with some sparing of the; transverse colon.; 4. Nonobstructing 6.5 mm calculus lower pole right kidney; ; ; ; ; ; ; ; ; ; ; Signed by; Shae East MD 06/09/2016 08:31 P; Outcome: 06/09 15:07 Discharge ordered by Provider. fg 16:25 Discharge Assessment: Patient awake, alert and oriented x 3. No cognitive and/or hs1 functional deficits noted. Patient verbalized understanding of disposition instructions. patient administered narcotics - yes. Pt provided with safe discharge. The following High Risk Discharge criteria are identified:. Condition: stable. Discharge instructions given to patient, Instructed on discharge instructions, follow up and referral plans. medication usage, Demonstrated understanding of instructions, medications, Pt was receptive of discharge instructions/ teaching. CT Study completed. Property sent home with patient. 16:26 Patient left the ED. hs1 Signatures: Dispatcher [employer] EDMS Ghazal Irby, Valve Machine Operator Unit deg Mercedes Esparza RN RN [facility] Anika Ayala, Reg Reg gb Madhavi Howard, Reg Reg lg Agata Altamirano RN RN hs1 Tiffanie Zabala, LIQUOR INSPECTOR LIQUOR INSPECTOR ct3 Martina Thomas MD MD fg Corrections: (The following items were deleted from the chart) 09:56 09:42 Adult Sepsis Screening: The patient does not have new or worsening altered hs1 mentation. Patient's respiratory rate is less than 22. Systolic blood pressure is less than or equal to 100 (1 point). hs1 10:53 09:49 Pulse 64bpm; MonitorResp 16bpm; Pulse Ox 79%; Temp 97.1F; 56.7 kg; Height 5 ft. hs1 11 in.; BMI: 17.4; Pain 10/10; hs1 16:26 16:18 Pulse 66bpm; Monitor; Pulse Ox 100%; hs1 hs1 Chart Complete MTDD
== END 2016-06-09 16:26 | disposition home or self-care (01) ==
LOC: M ED 09:39
DX: R07.9 Chest pain, unspecified (principal); R10.9 Unspecified abdominal pain; G89.29 Other chronic pain; K21.9 Gastro-esophageal reflux disease without esophagitis; K22.2 Esophageal obstruction; F11.120 Opioid abuse with intoxication, uncomplicated; Z86.19 Personal history of other infectious and parasitic diseases; Z79.899 Other long term (current) drug therapy; F17.210 Nicotine dependence, cigarettes, uncomplicated
CPT/HCPCS: 71010; 71275; 74177; 80048; 82550; 82553; 83880; 84484; 85025; 85730; 93005; 93041; 96374; 96375; 99285; J1170; Q9967

== ENCOUNTER 2016-06-10 13:51 | Emergency (ER) | payer MEDICARE ==
--- NOTE | 2016-06-10 15:22 | REP ---
PA and lateral chest 06/10/16 Indication: Chest pain Comparison: CTA chest and portable chest radiograph 06/09/2016, PA and lateral chest 05/31. Findings: The cardiomediastinal silhouette is normal. In the lateral view there is subtle parenchymal disease consistent with infiltrate projected over one of the diaphragms. This corresponds with the known left lower lobe infiltrate, better seen on CTA chest and CT abdomen/ pelvis on 06/09/2016. There is mild bilateral hyperinflation which suggests COPD . Impression: Normal cardiomediastinal silhouette. Bilateral hyperinflation suggests COPD. Small residual left posterior basilar infiltrate, best seen in the lateral projection and slightly improved when compared with chest radiograph 05/31/2016 Signed by Shae East MD 06/10/2016 03:14 P
[2016-06-10] MEDS ORDERED: ONDANSETRON 4MG/2ML VIAL (J2405) As Ordered ONE (15:30)
[2016-06-10] MEDS ORDERED: ASPIRIN 325 MG TAB As Ordered ONE (15:31)
[2016-06-10] MEDS ORDERED: MORPHINE 2 MG/ML 1ML SYRINGE As Ordered ONE (15:31)
[2016-06-10] MEDS ORDERED: ASPIRIN 81 MG CHEW TABLET As Ordered ONE (15:38)
[2016-06-10 15:58] LABS: ALBUMIN 3.3 GM/DL (3.2-5.2); ALKALINE PHOSPHATASE 84 U/L (45-117); ALT/SGPT 12 U/L (12-78); ANION GAP 10 MEQ/L (8-16); AST/SGOT 12 U/L (15-37); BILIRUBIN,DIRECT 0.1 MG/DL (0.0-0.2); BILIRUBIN,TOTAL 0.3 MG/DL (0.2-1.0); BLOOD UREA NITROGEN 15 MG/DL (7-18); CALCIUM LEVEL 8.7 MG/DL (8.5-10.1); CARBON DIOXIDE LEVEL 29 MEQ/L (21-32); CHLORIDE LEVEL 102 MEQ/L (98-107); CREATININE FOR GFR 0.53 MG/DL (0.70-1.30); GLOMERULAR FILTRATION RATE > 60.0 (>56); GLUCOSE, FASTING 84 MG/DL (70-105); POTASSIUM SERUM 4.4 MEQ/L (3.5-5.1); SODIUM LEVEL 141 MEQ/L (136-145); TOTAL PROTEIN 7.4 GM/DL (6.4-8.2)
[2016-06-10 16:03] LABS: BASO % 0.1 % (0.0-1.0); EOS # 0.1 K/mm3 (0.0-0.50); LARGE UNSTAINED CELL # 0.1 K/mm3 (0.0-0.4); LARGE UNSTAINED CELL % 1.4 % (0.0-4.0); LYMPH # 0.7 K/mm3 (1.5-4.5); LYMPH % 11.5 % (24.0-44.0); MEAN CORPUSCULAR HGB CONC 34.2 g/dl (32.0-36.5); MEAN CORPUSCULAR VOLUME 93.7 fl (80.0-96.0); MONO # 0.2 K/mm3 (0.0-0.8); MONO % 4.1 % (0.0-5.0); NEUTROPHILS # 4.8 K/mm3 (1.8-7.7); NEUTROPHILS % 81.8 % (36.0-66.0); PLATELET COUNT, AUTOMATED 120 k/mm3 (150-450); WHITE BLOOD COUNT 5.8 K/mm3 (4.0-10.0)
--- NOTE | 2016-06-10 16:53 | EDDOCDS ---
Physician Documentation [facility] Name: Edwar Stokes Age: 51 yrs Sex: Male : 1965 Arrival Date: 06/10/2016 Time: 13:51 Bed 14 Private MD: Cedric Marrero A. Disposition: 06/10/16 16:18 Discharged to Home/Self Care. Impression: Abdominal and pelvic pain. - Condition is Stable. - Discharge Instructions: Abdominal Pain, Adult. - Prescriptions for Zofran 4 mg Oral Tablet - take 1 tablet by ORAL route 4 times per day As needed; 10 tablet. - Medication Reconciliation, Local Pharmacy Hours form. - Follow up: Cedric Marrero; When: 2 - 3 days; Reason: Further diagnostic work-up, Recheck today's complaints, Continuance of care. - Problem is chronic. - Symptoms are unchanged. Historical: - Allergies: no known allergies; - Home Meds: 1. azithromycin 250 mg Oral tab 1 tab once daily 2. Carafate 100 mg/mL Oral susp 10 mL 4 times per day 3. cyanocobalamin (vitamin B-12) 1,000 mcg oral tab every 3 days 4. multivitamin Oral tab 1 tab daily 5. omeprazole 40 mg Oral cpDR 1 cap 2 times per day 6. oxycodone 20 mg Oral tab 1 tab every 4 hours 7. Oysco-500 500 mg calcium (1,250 mg) oral tab twice a day 8. senna 8.6 mg oral tab 1 tabs twice a day 9. Tab-A-Christian oral tab twice a day 10. vitamin D-3 1000 units daily 11. zinc gluconate 50 mg oral tab daily - PMHx: c diff; chronic abdominal pain; esophageal strictures; GERD; opiate abuse; opiate dependency; - PSHx: Appendectomy; repair right tendon repair; Hernia repair- Umbilical; Gastric Bypass; G-Tube Insertion; Cholecystectomy; - Social history: Smoking status: Patient uses tobacco products, current some day smoker. No barriers to communication noted, The patient speaks fluent Georgian. - Family history: Not pertinent. - : The pt / caregiver states he / she is not on anticoagulants. Home medication list is obtained from the facility [facility]. - Exposure Risk Screening:: None identified. Vital Signs: 06/10 13:52 BP 110 / 72; Pulse 69; Resp 18 S; Temp 95.8(O); Pulse Ox 100% on R/A; Weight 57.15 kg / gr2 125.99 lbs (M); Height 5 ft. 11 in. (180.34 cm) (R); Pain 6/10; 14:49 BP 109 / 77 (auto/); ja5 14:49 Pulse 62 MON; ja5 15:19 BP 112 / 71 (auto/); ja5 15:19 Pulse 58 MON; Pulse Ox 100% ; ja5 15:49 BP 102 / 67 (auto/); ja5 15:49 Pulse 58 MON; Pulse Ox 99% ; ja5 16:00 Pain 9/10; ja5 16:19 BP 98 / 67 (auto/); ja5 16:19 Pulse 60 MON; Pulse Ox 99% ; ja5 16:21 BP 100 / 67 (auto/); ja5 16:21 Pulse 62 MON; Pulse Ox 99% ; ja5 16:23 BP 110 / 67; Pulse 60; Resp 18; Temp 97.6(O); Pulse Ox 99% on R/A; Pain 10/10; mdr 13:52 Body Mass Index 17.57 (57.15 kg, 180.34 cm) gr2 MDM: 13:59 ECG WITH READING ER PHYS+CARDIAG ordered. EDMS 14:31 Aspirin Chewable Tablet 324 mg PO once ordered. ke 14:31 Ondansetron 4 mg IVP once ordered. ke 14:32 morphine 2 mg IVP once ordered. ke 14:32 Automotive Product Engineer/Pulse Ox/q 30 min VS ordered. ke 14:32 IV Saline Lock ordered. ke 14:32 Rhythm Strip to chart ordered. ke 14:32 Undress patient appropriately for examination ordered. ke 14:33 Basic Metabolic Profile Ordered. EDMS 14:33 CBC with Diff Ordered. EDMS 14:33 Cardiac Injury Profile Ordered. EDMS 14:33 Troponin Ordered. EDMS 14:33 Chest, 2 View (pa\E\lat) Ordered. EDMS 14:36 LIPASE Ordered. EDMS 14:36 LIVER PROFILE Ordered. EDMS 16:09 Basic Metabolic Profile Reviewed. ke 16:09 CBC with Diff Reviewed. ke 16:09 Cardiac Injury Profile Reviewed. ke 16:09 LIVER PROFILE Reviewed. ke 16:09 Troponin Reviewed. ke 16:09 LIPASE Reviewed. ke 16:09 Chest, 2 View (pa\E\lat) Reviewed. ke Administered Medications: 15:41 Drug: Aspirin 324 mg [aspirin 81 mg chewable tablet (4 tabs)] Route: PO; ja5 15:43 Drug: Ondansetron 4 mg [ondansetron HCl 2 mg/mL intravenous solution (2 mL)] Route: ja5 IVP; Site: left antecubital; 15:46 Drug: morphine 2 mg [morphine 2 mg/mL intravenous cartridge (1 mL)] Route: IVP; Site: [id number] left antecubital; 16:00 Follow up: Pain 02/01 Adult ja5 Signatures: Dispatcher [employer] EDMS Parvez Cervantes, ELECTRONIC COMMUNICATIONS TECHNICIAN ELECTRONIC COMMUNICATIONS TECHNICIAN Amandeep AlvarezRN RN [id number] Noa Muñoz RN RN ja5 Shaila Mendez RN [id number] The chart was reviewed and I authenticate all verbal orders and agree with the evaluation and treatment provided.Corrections: (The following items were deleted from the chart) 14:35 14:34 LIPASE+LAB ordered. EDMS EDMS 14:35 14:34 LIVER PROFILE+LAB ordered. EDMS EDMS MTDD
--- NOTE | 2016-06-10 16:53 | EDDOCDS ---
Nurse's Notes [facility] Name: Edwar Stokes Age: 51 yrs Sex: Male : 1965 Arrival Date: 06/10/2016 Time: 13:51 Bed 14 Private MD: Cedric Marrero A. Diagnosis: Abdominal and pelvic pain Presentation: 06/10 13:58 Presenting complaint: Patient states: "I got chest pain real bad. I called my primary mb9 and he told me to come here". pt also reports dizziness lightheadedness and dizziness. pt also reports abd pain with nausea, vomiting, and diarrhea. pt reports he was seen here and discharged yesterday for the same thing. Adult Sepsis Screening: The patient does not have new or worsening altered mentation. Patient's respiratory rate is less than 22. Systolic blood pressure is greater than 100. Patient has a qSOFA score of 0- Negative Sepsis Screen. Suicide/Homicide risk assessment- the patient denies having any suicidal and/or homicidal ideations and does not present with any other emotional, behavioral or mental health complaints. Status: Patient is not a home sales service professional or dependent. Transition of care: patient was not received from another setting of care. 13:58 Acuity: ANA Level 3 mb9 13:58 Method Of Arrival: Walkin/Carried/Asstd mb9 16:45 Aspirin was not taken prior to arrival. ja5 Triage Assessment: 14:03 General: Appears in no apparent distress. Pain: Location: chest. HIV screening NA for mb9 this visit Offered previously. Cardiovascular: Chest pain is described as Pain is 9 out of 10 on a pain scale. radiates Does not radiate. episodes are continuous began yesterday. Historical: - Allergies: no known allergies; - Home Meds: 1. azithromycin 250 mg Oral tab 1 tab once daily 2. Carafate 100 mg/mL Oral susp 10 mL 4 times per day 3. cyanocobalamin (vitamin B-12) 1,000 mcg oral tab every 3 days 4. multivitamin Oral tab 1 tab daily 5. omeprazole 40 mg Oral cpDR 1 cap 2 times per day 6. oxycodone 20 mg Oral tab 1 tab every 4 hours 7. Oysco-500 500 mg calcium (1,250 mg) oral tab twice a day 8. senna 8.6 mg oral tab 1 tabs twice a day 9. Tab-A-Christian oral tab twice a day 10. vitamin D-3 1000 units daily 11. zinc gluconate 50 mg oral tab daily - PMHx: c diff; chronic abdominal pain; esophageal strictures; GERD; opiate abuse; opiate dependency; - PSHx: Appendectomy; repair right tendon repair; Hernia repair- Umbilical; Gastric Bypass; G-Tube Insertion; Cholecystectomy; - Social history: Smoking status: Patient uses tobacco products, current some day smoker. No barriers to communication noted, The patient speaks fluent Guatemalan. - Family history: Not pertinent. - : The pt / caregiver states he / she is not on anticoagulants. Home medication list is obtained from the facility [facility]. - Exposure Risk Screening:: None identified. Screenin:52 Screening information is obtained from the patient. Fall risk: No risks identified. ja5 Assistance ADL's: requires no assistance with activities of daily living. Abuse/DV Screen: The patient / caregiver reports he/she is: not in a situation that causes fear, pain or injury. Nutritional screening: On no prescribed diet. Advance Directives: Currently, there is no health care proxy. There is no active DNR order. There is no living will. There is no Power of Knowledge Management Consultant. home support is adequate. Assessment: 15:47 General: Appears uncomfortable, Behavior is appropriate for age, cooperative. Pain: ja5 Location: left lower quadrant Pain currently is 10 out of 10 on a pain scale. Quality of pain is described as aching, Pain began 1 day ago Alleviated by medications. Neurological: Level of Consciousness is awake, alert, Oriented to person, place, time. Cardiovascular: Capillary refill < 3 seconds Heart tones S1 S2 present Rhythm is sinus bradycardia No ectopy. Respiratory: Airway is patent Respiratory effort is even, unlabored, Respiratory pattern is regular, symmetrical, Breath sounds are clear. GI: Abdomen is flat, non- distended Last BM was June 10, 2016. at 08:00. Last meal was June 06, 2016. Derm: Skin is intact, Skin is dry, Skin is pale, Skin temperature is warm. Vital Signs: 13:52 BP 110 / 72; Pulse 69; Resp 18 S; Temp 95.8(O); Pulse Ox 100% on R/A; Weight 57.15 kg gr2 (M); Height 5 ft. 11 in. (180.34 cm) (R); Pain 6/10; 14:49 BP 109 / 77 (auto/); ja5 14:49 Pulse 62 MON; ja5 15:19 BP 112 / 71 (auto/); ja5 15:19 Pulse 58 MON; Pulse Ox 100% ; ja5 15:49 BP 102 / 67 (auto/); ja5 15:49 Pulse 58 MON; Pulse Ox 99% ; ja5 16:00 Pain 9/10; ja5 16:19 BP 98 / 67 (auto/); ja5 16:19 Pulse 60 MON; Pulse Ox 99% ; ja5 16:21 BP 100 / 67 (auto/); ja5 16:21 Pulse 62 MON; Pulse Ox 99% ; ja5 16:23 BP 110 / 67; Pulse 60; Resp 18; Temp 97.6(O); Pulse Ox 99% on R/A; Pain 10/10; mdr 13:52 Body Mass Index 17.57 (57.15 kg, 180.34 cm) gr2 Vitals: 13:52 Log In Time: June 10, 2016 at 13:52. RN notified that patient meets Red Flag gr2 criteria. ED Course: 13:52 Patient visited by Huong Mathews. gr2 13:52 Cedric Marrero is Private Physician. gr2 13:52 Patient moved to Waiting gr2 13:54 Patient visited by Huong Mathews. gr2 13:54 Patient moved to Pre RCE gr2 13:56 Patient moved to PD2 / gr2 14:00 Triage Initiated mb9 14:10 EKG done. (by ED staff). Reviewed by Parvez ADAMS. mdr 14:11 Patient visited by Broderick Vyas PCA. mdr 14:16 Shaila Mendez, RN is Primary Nurse. mb9 14:16 Patient moved to 14 mb9 14:20 Patient visited by Tiffanie Zabala PCA. ct3 14:20 Patient has correct armband on for positive identification. Placed in gown. Bed in low ct3 position. Call light in reach. Side rails up X2. rn labor delivery on. Pulse ox on. NIBP on. 14:27 [facility] ke 14:27 Patient visited by Parvez Cervantes FNP. ke 14:27 Patient visited by Parvez Cervantes FNP. ke 15:03 Patient visited by Parvez Cervantes FNP. ke 15:29 LIVER PROFILE Sent. jc4 15:29 LIPASE Sent. jc4 15:32 Patient visited by Parvez Cervantes FNP. ke 15:43 Chest, 2 View (pa\\E\\lat) Returned. EDMS 15:43 Inserted peripheral IV: in left antecubital area Patient tolerated the procedure well. ja5 No procedures done that require assistance. 16:08 Patient visited by Parvez Cervantes FNP. ke 16:18 Cedric Marrero is Referral Physician. ke 16:24 Patient visited by Broderick Vyas PCA. mdr 16:45 Discontinued IV bleeding controlled, pressure dressing applied, No redness/swelling at ja5 site. 16:51 The patient / caregiver is instructed regarding the plan of care and ED course. ja5 Administered Medications: 15:41 Drug: Aspirin 324 mg [aspirin 81 mg chewable tablet (4 tabs)] Route: PO; ja5 15:43 Drug: Ondansetron 4 mg [ondansetron HCl 2 mg/mL intravenous solution (2 mL)] Route: ja5 IVP; Site: left antecubital; 15:46 Drug: morphine 2 mg [morphine 2 mg/mL intravenous cartridge (1 mL)] Route: IVP; Site: [facility] left antecubital; 16:00 Follow up: Pain 02/01 Adult ja5 Output: 15:45 Urine: 150.00ml (Voided); Total: 150.00ml. ja5 Order Results: Lab Order: Basic Metabolic Profile; SPEC'M 06/10/16 15:24 Test: GLUCOSE, FASTING; Value: 84; Range: 70-105; Units: MG/DL; Status: F Test: BLOOD UREA NITROGEN; Value: 15; Range: 7-18; Units: MG/DL; Status: F Test: CREATININE FOR GFR; Value: 0.53; Range: 0.70-1.30; Abnormal: Below low normal; Units: MG/DL; Status: F Test: GLOMERULAR FILTRATION RATE; Value: > 60.0; Range: >56; Status: F Test: SODIUM LEVEL; Value: 141; Range: 136-145; Units: MEQ/L; Status: F Test: POTASSIUM SERUM; Value: 4.4; Range: 3.5-5.1; Units: MEQ/L; Status: F Test: CHLORIDE LEVEL; Value: 102; Range: 98-107; Units: MEQ/L; Status: F Test: CARBON DIOXIDE LEVEL; Value: 29; Range: 21-32; Units: MEQ/L; Status: F Test: ANION GAP; Value: 10; Range: 8-16; Units: MEQ/L; Status: F Test: CALCIUM LEVEL; Value: 8.7; Range: 8.5-10.1; Units: MG/DL; Status: F Test Note: ; Units are mL/min/1.73 m2 Chronic Kidney Disease Staging per NKF: Stage I & II GFR >=60 Normal to Mildly Decreased Stage III GFR 30-59 Moderately Decreased Stage IV GFR 15-29 Severely Decreased Stage V GFR <15 Very Little GFR Left ESRD GFR <15 on TUBING SUPERVISOR Lab Order: CBC with Diff; SPEC'M 06/10/16 15:24 Test: WHITE BLOOD COUNT; Value: 5.8; Range: 4.0-10.0; Units: K/mm3; Status: F Test: RED BLOOD COUNT; Value: 3.66; Range: 4.30-6.10; Abnormal: Below low normal; Units: M/mm3; Status: F Test: HEMOGLOBIN; Value: 11.7; Range: 14.0-18.0; Abnormal: Below low normal; Units: g/dl; Status: F Test: HEMATOCRIT; Value: 34.3; Range: 42.0-52.0; Abnormal: Below low normal; Units: %; Status: F Test: MEAN CORPUSCULAR VOLUME; Value: 93.7; Range: 80.0-96.0; Units: fl; Status: F Test: MEAN CORPUSCULAR HEMOGLOBIN; Value: 32.0; Range: 27.0-33.0; Units: pg; Status: F Test: MEAN CORPUSCULAR HGB CONC; Value: 34.2; Range: 32.0-36.5; Units: g/dl; Status: F Test: RED CELL DISTRIBUTION WIDTH; Value: 14.0; Range: 11.5-14.5; Units: %; Status: F Test: PLATELET COUNT, AUTOMATED; Value: 120; Range: 150-450; Abnormal: Below low normal; Units: k/mm3; Status: F Test: NEUTROPHILS %; Value: 81.8; Range: 36.0-66.0; Abnormal: Above high normal; Units: %; Status: F Test: LYMPH %; Value: 11.5; Range: 24.0-44.0; Abnormal: Below low normal; Units: %; Status: F Test: MONO %; Value: 4.1; Range: 0.0-5.0; Units: %; Status: F Test: EOS %; Value: 1.0; Range: 0.0-3.0; Units: %; Status: F Test: BASO %; Value: 0.1; Range: 0.0-1.0; Units: %; Status: F Test: LARGE UNSTAINED CELL %; Value: 1.4; Range: 0.0-4.0; Units: %; Status: F Test: NEUTROPHILS #; Value: 4.8; Range: 1.8-7.7; Units: K/mm3; Status: F Test: LYMPH #; Value: 0.7; Range: 1.5-4.5; Abnormal: Below low normal; Units: K/mm3; Status: F Test: MONO #; Value: 0.2; Range: 0.0-0.8; Units: K/mm3; Status: F Test: EOS #; Value: 0.1; Range: 0.0-0.50; Units: K/mm3; Status: F Test: BASO #; Value: 0.0; Range: 0.0-0.2; Units: K/mm3; Status: F Test: LARGE UNSTAINED CELL #; Value: 0.1; Range: 0.0-0.4; Units: K/mm3; Status: F Lab Order: Cardiac Injury Profile; SPEC'M 06/10/16 15:24 Test: CPK CREATINE PHOSPHOKINASE; Value: 131; Range: 39-308; Abnormal: Delta; Units: U/L; Status: F Test: CK-MB VALUE MASS; Value: 3.6; Range: 0.0-3.6; Units: NG/ML; Status: F Test: MB/CK RELATIVE INDEX; Value: 2.74; Range: < OR =4; Status: F Test Note: ; DIAGNOSIS CRITERIA MMB ng/ml Relative Index (RI) NON-AMI < or = 5 N/A PIPER ZONE > 5 < or = 4 AMI > 5 > 4 Lab Order: Troponin; SPEC'M 06/10/16 15:24 Test: TROPONIN I; Value: < 0.02; Range: < 0.10; Units: NG/ML; Status: F Test Note: ; Troponin I Reference Interval for Siemens Elite Form LOCI: 99th Percentile= 0.00-0.045 ng/ml Risk Stratification: <= 0.10 ng/ml Decreased Risk for Adverse Clinical Events. 0.10-1.50 ng/ml Increased Risk for Adverse Clinical Events. Evaluation of additional criterion and/or repeat testing in 2-6 hours is suggested to rule out myocardial damage. >= 1.50 ng/ml Indicative of Myocardial Injury. Lab Order: LIPASE; SPEC'M 06/10/16 15:24 Test: LIPASE; Value: 122; Range: 73-393; Units: U/L; Status: F Lab Order: LIVER PROFILE; SPEC' 06/10/16 15:24 Test: AST/SGOT; Value: 12; Range: 15-37; Abnormal: Below low normal; Units: U/L; Status: F Test: ALT/SGPT; Value: 12; Range: 12-78; Units: U/L; Status: F Test: ALKALINE PHOSPHATASE; Value: 84; Range: 45-117; Units: U/L; Status: F Test: BILIRUBIN,TOTAL; Value: 0.3; Range: 0.2-1.0; Units: MG/DL; Status: F Test: BILIRUBIN,DIRECT; Value: 0.1; Range: 0.0-0.2; Units: MG/DL; Status: F Test: TOTAL PROTEIN; Value: 7.4; Range: 6.4-8.2; Units: GM/DL; Status: F Test: ALBUMIN; Value: 3.3; Range: 3.2-5.2; Units: GM/DL; Status: F Test: ALBUMIN/GLOBULIN RATIO; Value: 0.80; Range: 1.00-1.93; Abnormal: Below low normal; Status: F Radiology Order: Chest, 2 View (pa\\E\\lat) Test: Chest, 2 View (pa\\E\\lat) REASON FOR EXAMINATION: Chest Pain; PA and lateral chest 06/10/16; ; Indication: Chest pain; ; Comparison: CTA chest and portable chest radiograph 06/09/2016, PA and lateral; chest 05/31.; ; Findings: The cardiomediastinal silhouette is normal. In the lateral view there; is subtle parenchymal disease consistent with infiltrate projected over one of; the diaphragms. This corresponds with the known left lower lobe infiltrate,; better seen on CTA chest and CT abdomen/ pelvis on 06/09/2016.; ; There is mild bilateral hyperinflation which suggests COPD .; ; Impression:; ; Normal cardiomediastinal silhouette.; ; Bilateral hyperinflation suggests COPD.; ; Small residual left posterior basilar infiltrate, best seen in the lateral; projection and slightly improved when compared with chest radiograph 05/31/2016; ; ; ; ; ; ; ; ; Signed by; Shae East MD 06/10/2016 03:14 P; Outcome: 16:18 Discharge ordered by Provider. ke 16:49 Discharge Assessment: Patient awake, alert and oriented x 3. No cognitive and/or ja5 functional deficits noted. Patient verbalized understanding of disposition instructions. patient administered narcotics - yes. Pt provided with safe discharge. The following High Risk Discharge criteria are identified: None. Discharged to home ambulatory, yellow cab pass provided to patient. Condition: stable. Property :Personal belongings accompany Pt. 16:51 No special radiology studies were completed. ja5 16:52 Patient left the ED. ja5 Signatures: Dispatcher [employer] EDMS Parvez Cervantes, SCALLOPER SCALLOPER Shaila Grimes RN RN jc4 Tiffanie Zabala, AIRLINE COUNTER AGENT AIRLINE COUNTER AGENT ct3 Huong Mathews gr2 Amandeep Gordillo,RN RN mb9 Broderick Vyas, AIRLINE COUNTER AGENT AIRLINE COUNTER AGENT mdr Noa Muñoz,RN RN ja5 MTDD
--- NOTE | 2016-06-11 08:00 | ECGEPIP ---
Stationary ECG Study [facility] - ED Test Date: 2016-06-10 Pat Name: GRAHAM COLEMAN Department: Room: - Gender: M Academic Physician: mr : 1965 Requested By: Smith Wilder Order Number: [id number] Reading MD: Kathryn Berg Measurements Intervals [place] Rate: 55 P: 66 SC: 152 QRS: 4 QRSD: 108 T: 58 QT: 423 QTc: 406 Interpretive Statements SINUS BRADYCARDIA LOW VOLTAGE LIMB DECREASED RATE 06/09/16 Electronically Signed On 06-11-2016 7:59:58 EST by Kathryn Berg
--- NOTE | 2016-06-12 17:53 | EDDOCDS ---
Physician Documentation [facility] Name: Edwar Stokes Age: 51 yrs Sex: Male : 1965 Arrival Date: 06/10/2016 Time: 13:51 Bed 14 Private MD: Cedric Goetz A. Disposition: 06/10/16 16:18 Discharged to Home/Self Care. Impression: Abdominal and pelvic pain. - Condition is Stable. - Discharge Instructions: Abdominal Pain, Adult. - Prescriptions for Zofran 4 mg Oral Tablet - take 1 tablet by ORAL route 4 times per day As needed; 10 tablet. - Medication Reconciliation, Local Pharmacy Hours form. - Follow up: Cedric Goetz; When: 2 - 3 days; Reason: Further diagnostic work-up, Recheck today's complaints, Continuance of care. - Problem is chronic. - Symptoms are unchanged. Historical: - Allergies: no known allergies; - Home Meds: 1. azithromycin 250 mg Oral tab 1 tab once daily 2. Carafate 100 mg/mL Oral susp 10 mL 4 times per day 3. cyanocobalamin (vitamin B-12) 1,000 mcg oral tab every 3 days 4. multivitamin Oral tab 1 tab daily 5. omeprazole 40 mg Oral cpDR 1 cap 2 times per day 6. oxycodone 20 mg Oral tab 1 tab every 4 hours 7. Oysco-500 500 mg calcium (1,250 mg) oral tab twice a day 8. senna 8.6 mg oral tab 1 tabs twice a day 9. Tab-A-Christian oral tab twice a day 10. vitamin D-3 1000 units daily 11. zinc gluconate 50 mg oral tab daily - PMHx: c diff; chronic abdominal pain; esophageal strictures; GERD; opiate abuse; opiate dependency; - PSHx: Appendectomy; repair right tendon repair; Hernia repair- Umbilical; Gastric Bypass; G-Tube Insertion; Cholecystectomy; - Social history: Smoking status: Patient uses tobacco products, current some day smoker. No barriers to communication noted, The patient speaks fluent Georgian. - Family history: Not pertinent. - : The pt / caregiver states he / she is not on anticoagulants. Home medication list is obtained from the facility [facility]. - Exposure Risk Screening:: None identified. Vital Signs: 06/10 13:52 BP 110 / 72; Pulse 69; Resp 18 S; Temp 95.8(O); Pulse Ox 100% on R/A; Weight 57.15 kg / gr2 125.99 lbs (M); Height 5 ft. 11 in. (180.34 cm) (R); Pain 6/10; 14:49 BP 109 / 77 (auto/); ja5 14:49 Pulse 62 MON; ja5 15:19 BP 112 / 71 (auto/); ja5 15:19 Pulse 58 MON; Pulse Ox 100% ; ja5 15:49 BP 102 / 67 (auto/); ja5 15:49 Pulse 58 MON; Pulse Ox 99% ; ja5 16:00 Pain 9/10; ja5 16:19 BP 98 / 67 (auto/); ja5 16:19 Pulse 60 MON; Pulse Ox 99% ; ja5 16:21 BP 100 / 67 (auto/); ja5 16:21 Pulse 62 MON; Pulse Ox 99% ; ja5 16:23 BP 110 / 67; Pulse 60; Resp 18; Temp 97.6(O); Pulse Ox 99% on R/A; Pain 10/10; mdr 13:52 Body Mass Index 17.57 (57.15 kg, 180.34 cm) gr2 MDM: 13:59 ECG WITH READING ER PHYS+CARDIAG ordered. EDMS 14:31 Aspirin Chewable Tablet 324 mg PO once ordered. ke 14:31 Ondansetron 4 mg IVP once ordered. ke 14:32 morphine 2 mg IVP once ordered. ke 14:32 Health Administration Teacher/Pulse Ox/q 30 min VS ordered. ke 14:32 IV Saline Lock ordered. ke 14:32 Rhythm Strip to chart ordered. ke 14:32 Undress patient appropriately for examination ordered. ke 14:33 Basic Metabolic Profile Ordered. EDMS 14:33 CBC with Diff Ordered. EDMS 14:33 Cardiac Injury Profile Ordered. EDMS 14:33 Troponin Ordered. EDMS 14:33 Chest, 2 View (pa\E\lat) Ordered. EDMS 14:36 LIPASE Ordered. EDMS 14:36 LIVER PROFILE Ordered. EDMS 16:09 Basic Metabolic Profile Reviewed. ke 16:09 CBC with Diff Reviewed. ke 16:09 Cardiac Injury Profile Reviewed. ke 16:09 LIVER PROFILE Reviewed. ke 16:09 Troponin Reviewed. ke 16:09 LIPASE Reviewed. ke 16:09 Chest, 2 View (pa\E\lat) Reviewed. ke 17:11 [facility] Payment Agreement was scanned into [employer] and attached to record. [facility] :11 Financial registration complete. [facility] 06/11 08:45 ED course: dr goetz faxed formal report of cxr for fu mlg. ml 11:54 T-Sheet-- Draft Copy was scanned into [employer] and attached to record. gb 11:54 ECG/EKG was scanned into [email or web address] and attached to record. gb 11:55 Trend VS was scanned into [employer] and attached to record. gb Administered Medications: 06/10 15:41 Drug: Aspirin 324 mg [aspirin 81 mg chewable tablet (4 tabs)] Route: PO; ja5 15:43 Drug: Ondansetron 4 mg [ondansetron HCl 2 mg/mL intravenous solution (2 mL)] Route: ja5 IVP; Site: left antecubital; 15:46 Drug: morphine 2 mg [morphine 2 mg/mL intravenous cartridge (1 mL)] Route: IVP; Site: jc4 left antecubital; 16:00 Follow up: Pain 02/01 Adult ja5 Signatures: Dispatcher [employer] EDMS Dorota Garcia MD MD ml Anika Ayala, Reg Reg Parvez Tamez, PUBLIC RELATIONS ASSISTANT PUBLIC RELATIONS ASSISTANT Amandeep Alvarez,RN RN [id number] Amara Simon Jessica, RN RN ja5 Shaila Mendez RN jc4 The chart was reviewed and I authenticate all verbal orders and agree with the evaluation and treatment provided.Corrections: (The following items were deleted from the chart) 14:35 14:34 LIPASE+LAB ordered. EDMS EDMS 14:35 14:34 LIVER PROFILE+LAB ordered. EDMS EDMS Attachments: 17:11 [facility] Payment Agreement [facility] 06/11 11:54 T-Sheet-- Draft Copy gb 11:54 ECG/EKG gb Chart Complete MTDD
--- NOTE | 2016-06-12 17:53 | EDDOCDS ---
Nurse's Notes [facility] Name: Edwar Coleman Age: 51 yrs Sex: Male : 1965 Arrival Date: 06/10/2016 Time: 13:51 Bed 14 Private MD: Cedric Marrero A. Diagnosis: Abdominal and pelvic pain Presentation: 06/10 13:58 Presenting complaint: Patient states: "I got chest pain real bad. I called my primary mb9 and he told me to come here". pt also reports dizziness lightheadedness and dizziness. pt also reports abd pain with nausea, vomiting, and diarrhea. pt reports he was seen here and discharged yesterday for the same thing. Adult Sepsis Screening: The patient does not have new or worsening altered mentation. Patient's respiratory rate is less than 22. Systolic blood pressure is greater than 100. Patient has a qSOFA score of 0- Negative Sepsis Screen. Suicide/Homicide risk assessment- the patient denies having any suicidal and/or homicidal ideations and does not present with any other emotional, behavioral or mental health complaints. Status: Patient is not a food service coordinator or dependent. Transition of care: patient was not received from another setting of care. 13:58 Acuity: ANA Level 3 mb9 13:58 Method Of Arrival: Walkin/Carried/Asstd mb9 16:45 Aspirin was not taken prior to arrival. ja5 Triage Assessment: 14:03 General: Appears in no apparent distress. Pain: Location: chest. HIV screening NA for mb9 this visit Offered previously. Cardiovascular: Chest pain is described as Pain is 9 out of 10 on a pain scale. radiates Does not radiate. episodes are continuous began yesterday. Historical: - Allergies: no known allergies; - Home Meds: 1. azithromycin 250 mg Oral tab 1 tab once daily 2. Carafate 100 mg/mL Oral susp 10 mL 4 times per day 3. cyanocobalamin (vitamin B-12) 1,000 mcg oral tab every 3 days 4. multivitamin Oral tab 1 tab daily 5. omeprazole 40 mg Oral cpDR 1 cap 2 times per day 6. oxycodone 20 mg Oral tab 1 tab every 4 hours 7. Oysco-500 500 mg calcium (1,250 mg) oral tab twice a day 8. senna 8.6 mg oral tab 1 tabs twice a day 9. Tab-A-Christian oral tab twice a day 10. vitamin D-3 1000 units daily 11. zinc gluconate 50 mg oral tab daily - PMHx: c diff; chronic abdominal pain; esophageal strictures; GERD; opiate abuse; opiate dependency; - PSHx: Appendectomy; repair right tendon repair; Hernia repair- Umbilical; Gastric Bypass; G-Tube Insertion; Cholecystectomy; - Social history: Smoking status: Patient uses tobacco products, current some day smoker. No barriers to communication noted, The patient speaks fluent Hungarian. - Family history: Not pertinent. - : The pt / caregiver states he / she is not on anticoagulants. Home medication list is obtained from the facility [facility]. - Exposure Risk Screening:: None identified. Screenin:52 Screening information is obtained from the patient. Fall risk: No risks identified. ja5 Assistance ADL's: requires no assistance with activities of daily living. Abuse/DV Screen: The patient / caregiver reports he/she is: not in a situation that causes fear, pain or injury. Nutritional screening: On no prescribed diet. Advance Directives: Currently, there is no health care proxy. There is no active DNR order. There is no living will. There is no Power of Personal Care Service Provider. home support is adequate. Assessment: 15:47 General: Appears uncomfortable, Behavior is appropriate for age, cooperative. Pain: ja5 Location: left lower quadrant Pain currently is 10 out of 10 on a pain scale. Quality of pain is described as aching, Pain began 1 day ago Alleviated by medications. Neurological: Level of Consciousness is awake, alert, Oriented to person, place, time. Cardiovascular: Capillary refill < 3 seconds Heart tones S1 S2 present Rhythm is sinus bradycardia No ectopy. Respiratory: Airway is patent Respiratory effort is even, unlabored, Respiratory pattern is regular, symmetrical, Breath sounds are clear. GI: Abdomen is flat, non- distended Last BM was June 10, 2016. at 08:00. Last meal was June 06, 2016. Derm: Skin is intact, Skin is dry, Skin is pale, Skin temperature is warm. 16:45 General: Appears in no apparent distress, Behavior is appropriate for age. General: Pt jc4 states, "I don't think I can go home". Asking for additional pain medication before discharge home. Per K. Elsner, MANAGER FOOD SAFETY, patient to take his own pain medication upon returning home. Pt requesting cab pass to be given. Per PSA, cab pass to be charged to [facility]. Pt given cab pass. Ambulatory without difficulty. Pain: Location: chest and abdomen Pain currently is 10 out of 10 on a pain scale. Neurological: Level of Consciousness is awake, alert, Oriented to person, place, time. Respiratory: Airway is patent Respiratory effort is even, unlabored, Respiratory pattern is regular, symmetrical. Derm: Skin is pink, warm & dry. Vital Signs: 13:52 BP 110 / 72; Pulse 69; Resp 18 S; Temp 95.8(O); Pulse Ox 100% on R/A; Weight 57.15 kg gr2 (M); Height 5 ft. 11 in. (180.34 cm) (R); Pain 6/10; 14:49 BP 109 / 77 (auto/); ja5 14:49 Pulse 62 MON; ja5 15:19 BP 112 / 71 (auto/); ja5 15:19 Pulse 58 MON; Pulse Ox 100% ; ja5 15:49 BP 102 / 67 (auto/); ja5 15:49 Pulse 58 MON; Pulse Ox 99% ; ja5 16:00 Pain 9/10; ja5 16:19 BP 98 / 67 (auto/); ja5 16:19 Pulse 60 MON; Pulse Ox 99% ; ja5 16:21 BP 100 / 67 (auto/); ja5 16:21 Pulse 62 MON; Pulse Ox 99% ; ja5 16:23 BP 110 / 67; Pulse 60; Resp 18; Temp 97.6(O); Pulse Ox 99% on R/A; Pain 10/10; mdr 13:52 Body Mass Index 17.57 (57.15 kg, 180.34 cm) gr2 Vitals: 13:52 Log In Time: June 10, 2016 at 13:52. RN notified that patient meets Red Flag gr2 criteria. ED Course: 13:52 Patient visited by Huong Mathews. gr2 13:52 Cedric Marrero is Private Physician. gr2 13:52 Patient moved to Waiting gr2 13:54 Patient visited by Huong Mathews. gr2 13:54 Patient moved to Pre RCE gr2 13:56 Patient moved to PD gr2 14:00 Triage Initiated mb9 14:10 EKG done. (by ED staff). Reviewed by Parvez ADAMS. mdr 14:11 Patient visited by Broderick Vyas PCA. mdr 14:16 Shaila Mendez, RN is Primary Nurse. mb9 14:16 Patient moved to 14 mb9 14:20 Patient visited by Tiffanie Zabala PCA. ct3 14:20 Patient has correct armband on for positive identification. Placed in gown. Bed in low ct3 position. Call light in reach. Side rails up X2. civil engineering designer on. Pulse ox on. NIBP on. 14:27 Parvez Cervantes FNP is PHCP. ke 14:27 Patient visited by Parvez Cervantes FNP. ke 14:27 Patient visited by Parvez Cervantes FNP. ke 15:03 Patient visited by Parvez Cervantes FNP. ke 15:29 LIVER PROFILE Sent. jc4 15:29 LIPASE Sent. jc4 15:32 Patient visited by Parvez Cervantes FNP. ke 15:43 Chest, 2 View (pa\\E\\lat) Returned. EDMS 15:43 Inserted peripheral IV: in left antecubital area Patient tolerated the procedure well. ja5 No procedures done that require assistance. 16:08 Patient visited by Parvez Cervantes FNP. ke 16:18 Cedric Marrero is Referral Physician. ke 16:24 Patient visited by Broderick Vyas PCA. mdr 16:45 Discontinued IV bleeding controlled, pressure dressing applied, No redness/swelling at ja5 site. 16:51 The patient / caregiver is instructed regarding the plan of care and ED course. ja5 17:11 [place] [place] was [place] into [employer] and attached to record. gjb 06/11 08:22 EKG-ADULT Returned. EDMS 11:54 T-Sheet-- Draft Copy was scanned into [employer] and attached to record. gb 11:54 ECG/EKG was scanned into [employer] and attached to record. gb 11:55 Trend VS was scanned into [employer] and attached to record. gb Administered Medications: 06/10 15:41 Drug: Aspirin 324 mg [aspirin 81 mg chewable tablet (4 tabs)] Route: PO; ja5 15:43 Drug: Ondansetron 4 mg [ondansetron HCl 2 mg/mL intravenous solution (2 mL)] Route: ja5 IVP; Site: left antecubital; 15:46 Drug: morphine 2 mg [morphine 2 mg/mL intravenous cartridge (1 mL)] Route: IVP; Site: jc4 left antecubital; 16:00 Follow up: Pain 02/01 Adult Attachments: 11:55 Trend VS gb Output: 06/10 15:45 Urine: 150.00ml (Voided); Total: 150.00ml. ja5 Order Results: Lab Order: Basic Metabolic Profile; SPEC'M 06/10/16 15:24 Test: GLUCOSE, FASTING; Value: 84; Range: 70-105; Units: MG/DL; Status: F Test: BLOOD UREA NITROGEN; Value: 15; Range: 7-18; Units: MG/DL; Status: F Test: CREATININE FOR GFR; Value: 0.53; Range: 0.70-1.30; Abnormal: Below low normal; Units: MG/DL; Status: F Test: GLOMERULAR FILTRATION RATE; Value: > 60.0; Range: >56; Status: F Test: SODIUM LEVEL; Value: 141; Range: 136-145; Units: MEQ/L; Status: F Test: POTASSIUM SERUM; Value: 4.4; Range: 3.5-5.1; Units: MEQ/L; Status: F Test: CHLORIDE LEVEL; Value: 102; Range: 98-107; Units: MEQ/L; Status: F Test: CARBON DIOXIDE LEVEL; Value: 29; Range: 21-32; Units: MEQ/L; Status: F Test: ANION GAP; Value: 10; Range: 8-16; Units: MEQ/L; Status: F Test: CALCIUM LEVEL; Value: 8.7; Range: 8.5-10.1; Units: MG/DL; Status: F Test Note: ; Units are mL/min/1.73 m2 Chronic Kidney Disease Staging per NKF: Stage I & II GFR >=60 Normal to Mildly Decreased Stage III GFR 30-59 Moderately Decreased Stage IV GFR 15-29 Severely Decreased Stage V GFR <15 Very Little GFR Left ESRD GFR <15 on AUTOMOTIVE ELECTRICIAN HELPER Lab Order: CBC with Diff; SPEC'M 06/10/16 15:24 Test: WHITE BLOOD COUNT; Value: 5.8; Range: 4.0-10.0; Units: K/mm3; Status: F Test: RED BLOOD COUNT; Value: 3.66; Range: 4.30-6.10; Abnormal: Below low normal; Units: M/mm3; Status: F Test: HEMOGLOBIN; Value: 11.7; Range: 14.0-18.0; Abnormal: Below low normal; Units: g/dl; Status: F Test: HEMATOCRIT; Value: 34.3; Range: 42.0-52.0; Abnormal: Below low normal; Units: %; Status: F Test: MEAN CORPUSCULAR VOLUME; Value: 93.7; Range: 80.0-96.0; Units: fl; Status: F Test: MEAN CORPUSCULAR HEMOGLOBIN; Value: 32.0; Range: 27.0-33.0; Units: pg; Status: F Test: MEAN CORPUSCULAR HGB CONC; Value: 34.2; Range: 32.0-36.5; Units: g/dl; Status: F Test: RED CELL DISTRIBUTION WIDTH; Value: 14.0; Range: 11.5-14.5; Units: %; Status: F Test: PLATELET COUNT, AUTOMATED; Value: 120; Range: 150-450; Abnormal: Below low normal; Units: k/mm3; Status: F Test: NEUTROPHILS %; Value: 81.8; Range: 36.0-66.0; Abnormal: Above high normal; Units: %; Status: F Test: LYMPH %; Value: 11.5; Range: 24.0-44.0; Abnormal: Below low normal; Units: %; Status: F Test: MONO %; Value: 4.1; Range: 0.0-5.0; Units: %; Status: F Test: EOS %; Value: 1.0; Range: 0.0-3.0; Units: %; Status: F Test: BASO %; Value: 0.1; Range: 0.0-1.0; Units: %; Status: F Test: LARGE UNSTAINED CELL %; Value: 1.4; Range: 0.0-4.0; Units: %; Status: F Test: NEUTROPHILS #; Value: 4.8; Range: 1.8-7.7; Units: K/mm3; Status: F Test: LYMPH #; Value: 0.7; Range: 1.5-4.5; Abnormal: Below low normal; Units: K/mm3; Status: F Test: MONO #; Value: 0.2; Range: 0.0-0.8; Units: K/mm3; Status: F Test: EOS #; Value: 0.1; Range: 0.0-0.50; Units: K/mm3; Status: F Test: BASO #; Value: 0.0; Range: 0.0-0.2; Units: K/mm3; Status: F Test: LARGE UNSTAINED CELL #; Value: 0.1; Range: 0.0-0.4; Units: K/mm3; Status: F Lab Order: Cardiac Injury Profile; [facility] 06/10/16 1524 Test: CPK CREATINE PHOSPHOKINASE; Value: 131; Range: 39-308; Abnormal: Delta; Units: U/L; Status: F Test: CK-MB VALUE MASS; Value: 3.6; Range: 0.0-3.6; Units: NG/ML; Status: F Test: MB/CK RELATIVE INDEX; Value: 2.74; Range: < OR =4; Status: F Test Note: ; DIAGNOSIS CRITERIA MMB ng/ml Relative Index (RI) NON-AMI < or = 5 N/A PIPER ZONE > 5 < or = 4 AMI > 5 > 4 Lab Order: Troponin; [facility] 06/10/16 1524 Test: TROPONIN I; Value: < 0.02; Range: < 0.10; Units: NG/ML; Status: F Test Note: ; Troponin I Reference Interval for [employer] LOCI: 99th Percentile= 0.00-0.045 ng/ml Risk Stratification: <= 0.10 ng/ml Decreased Risk for Adverse Clinical Events. 0.10-1.50 ng/ml Increased Risk for Adverse Clinical Events. Evaluation of additional criterion and/or repeat testing in 2-6 hours is suggested to rule out myocardial damage. >= 1.50 ng/ml Indicative of Myocardial Injury. Lab Order: LIPASE; [facility] 06/10/16 15:24 Test: LIPASE; Value: 122; Range: 73-393; Units: U/L; Status: F Lab Order: LIVER PROFILE; [facility] 06/10/16 15:24 Test: AST/SGOT; Value: 12; Range: 15-37; Abnormal: Below low normal; Units: U/L; Status: F Test: ALT/SGPT; Value: 12; Range: 12-78; Units: U/L; Status: F Test: ALKALINE PHOSPHATASE; Value: 84; Range: 45-117; Units: U/L; Status: F Test: BILIRUBIN,TOTAL; Value: 0.3; Range: 0.2-1.0; Units: MG/DL; Status: F Test: BILIRUBIN,DIRECT; Value: 0.1; Range: 0.0-0.2; Units: MG/DL; Status: F Test: TOTAL PROTEIN; Value: 7.4; Range: 6.4-8.2; Units: GM/DL; Status: F Test: ALBUMIN; Value: 3.3; Range: 3.2-5.2; Units: GM/DL; Status: F Test: ALBUMIN/GLOBULIN RATIO; Value: 0.80; Range: 1.00-1.93; Abnormal: Below low normal; Status: F Radiology Order: EKG-ADULT Test: EKG-ADULT REASON FOR EXAMINATION: Chest Pain; Stationary ECG Study; [facility] - ED; ; Test Date: 2016-06-10; Pat Name: EDWAR COLEMAN Department:; Room: -; Gender: M Drafter Civil: ; : 1965 Requested By: Smith Wilder; Order Number: [id number] Reading MD: Kathryn Berg; Measurements; Intervals [facility]; Rate: 55 P: 66; CO: 152 QRS: 4; QRSD: 108 T: 58; QT: 423; QTc: 406; Interpretive Statements; SINUS BRADYCARDIA; LOW VOLTAGE LIMB; DECREASED RATE 06/09/16; Electronically Signed On 06-11-2016 7:59:58 EST by Kathryn Berg; Radiology Order: Chest, 2 View (pa\\E\\lat) Test: Chest, 2 View (pa\\E\\lat) REASON FOR EXAMINATION: Chest Pain; PA and lateral chest 06/10/16; ; Indication: Chest pain; ; Comparison: CTA chest and portable chest radiograph 06/09/2016, PA and lateral; chest 05/31.; ; Findings: The cardiomediastinal silhouette is normal. In the lateral view there; is subtle parenchymal disease consistent with infiltrate projected over one of; the diaphragms. This corresponds with the known left lower lobe infiltrate,; better seen on CTA chest and CT abdomen/ pelvis on 06/09/2016.; ; There is mild bilateral hyperinflation which suggests COPD .; ; Impression:; ; Normal cardiomediastinal silhouette.; ; Bilateral hyperinflation suggests COPD.; ; Small residual left posterior basilar infiltrate, best seen in the lateral; projection and slightly improved when compared with chest radiograph 05/31/2016; ; ; ; ; ; ; ; ; Signed by; Shae East MD 06/10/2016 03:14 P; Outcome: 16:18 Discharge ordered by Provider. franko 16:49 Discharge Assessment: Patient awake, alert and oriented x 3. No cognitive and/or ja5 functional deficits noted. Patient verbalized understanding of disposition instructions. patient administered narcotics - yes. Pt provided with safe discharge. The following High Risk Discharge criteria are identified: None. Discharged to home ambulatory, yellow cab pass provided to patient. Condition: stable. Property :Personal belongings accompany Pt. 16:51 No special radiology studies were completed. ja5 16:52 Patient left the ED. ja5 Signatures: Dispatcher [employer] EDMS Anika Ayala, Larry Reg Parvez Tamez, TECHNICAL SUPPORT AGENT TECHNICAL SUPPORT AGENT Shaila Grimes RN RN jc4 Tiffanie Zabala, INCIDENT MANAGER INCIDENT MANAGER ct3 Huong Mathews gr2 Amandeep Gordillo,RN RN mb9 Broderick Vyas, INCIDENT MANAGER INCIDENT MANAGER Amara Erazo Jessica,RN RN ja5 Chart Complete MTDD
--- NOTE | 2016-06-12 17:53 | EDDOCDS ---
Physician Documentation [facility] Name: Edwar Stokes Age: 51 yrs Sex: Male : 1965 Arrival Date: 06/10/2016 Time: 13:51 Bed 14 Private MD: Cedric Goetz A. Disposition: 06/10/16 16:18 Discharged to Home/Self Care. Impression: Abdominal and pelvic pain. - Condition is Stable. - Discharge Instructions: Abdominal Pain, Adult. - Prescriptions for Zofran 4 mg Oral Tablet - take 1 tablet by ORAL route 4 times per day As needed; 10 tablet. - Medication Reconciliation, Local Pharmacy Hours form. - Follow up: Cedric Goetz; When: 2 - 3 days; Reason: Further diagnostic work-up, Recheck today's complaints, Continuance of care. - Problem is chronic. - Symptoms are unchanged. Historical: - Allergies: no known allergies; - Home Meds: 1. azithromycin 250 mg Oral tab 1 tab once daily 2. Carafate 100 mg/mL Oral susp 10 mL 4 times per day 3. cyanocobalamin (vitamin B-12) 1,000 mcg oral tab every 3 days 4. multivitamin Oral tab 1 tab daily 5. omeprazole 40 mg Oral cpDR 1 cap 2 times per day 6. oxycodone 20 mg Oral tab 1 tab every 4 hours 7. Oysco-500 500 mg calcium (1,250 mg) oral tab twice a day 8. senna 8.6 mg oral tab 1 tabs twice a day 9. Tab-A-Christian oral tab twice a day 10. vitamin D-3 1000 units daily 11. zinc gluconate 50 mg oral tab daily - PMHx: c diff; chronic abdominal pain; esophageal strictures; GERD; opiate abuse; opiate dependency; - PSHx: Appendectomy; repair right tendon repair; Hernia repair- Umbilical; Gastric Bypass; G-Tube Insertion; Cholecystectomy; - Social history: Smoking status: Patient uses tobacco products, current some day smoker. No barriers to communication noted, The patient speaks fluent Danish. - Family history: Not pertinent. - : The pt / caregiver states he / she is not on anticoagulants. Home medication list is obtained from the facility [facility]. - Exposure Risk Screening:: None identified. Vital Signs: 06/10 13:52 BP 110 / 72; Pulse 69; Resp 18 S; Temp 95.8(O); Pulse Ox 100% on R/A; Weight 57.15 kg / gr2 125.99 lbs (M); Height 5 ft. 11 in. (180.34 cm) (R); Pain 6/10; 14:49 BP 109 / 77 (auto/); ja5 14:49 Pulse 62 MON; ja5 15:19 BP 112 / 71 (auto/); ja5 15:19 Pulse 58 MON; Pulse Ox 100% ; ja5 15:49 BP 102 / 67 (auto/); ja5 15:49 Pulse 58 MON; Pulse Ox 99% ; ja5 16:00 Pain 9/10; ja5 16:19 BP 98 / 67 (auto/); ja5 16:19 Pulse 60 MON; Pulse Ox 99% ; ja5 16:21 BP 100 / 67 (auto/); ja5 16:21 Pulse 62 MON; Pulse Ox 99% ; ja5 16:23 BP 110 / 67; Pulse 60; Resp 18; Temp 97.6(O); Pulse Ox 99% on R/A; Pain 10/10; mdr 13:52 Body Mass Index 17.57 (57.15 kg, 180.34 cm) gr2 MDM: 13:59 ECG WITH READING ER PHYS+CARDIAG ordered. EDMS 14:31 Aspirin Chewable Tablet 324 mg PO once ordered. ke 14:31 Ondansetron 4 mg IVP once ordered. ke 14:32 morphine 2 mg IVP once ordered. ke 14:32 Wheel Of Fortune Dealer/Pulse Ox/q 30 min VS ordered. ke 14:32 IV Saline Lock ordered. ke 14:32 Rhythm Strip to chart ordered. ke 14:32 Undress patient appropriately for examination ordered. ke 14:33 Basic Metabolic Profile Ordered. EDMS 14:33 CBC with Diff Ordered. EDMS 14:33 Cardiac Injury Profile Ordered. EDMS 14:33 Troponin Ordered. EDMS 14:33 Chest, 2 View (pa\E\lat) Ordered. EDMS 14:36 LIPASE Ordered. EDMS 14:36 LIVER PROFILE Ordered. EDMS 16:09 Basic Metabolic Profile Reviewed. ke 16:09 CBC with Diff Reviewed. ke 16:09 Cardiac Injury Profile Reviewed. ke 16:09 LIVER PROFILE Reviewed. ke 16:09 Troponin Reviewed. ke 16:09 LIPASE Reviewed. ke 16:09 Chest, 2 View (pa\E\lat) Reviewed. ke 17:11 [facility] Payment Agreement was scanned into [employer] and attached to record. [facility] :11 Financial registration complete. [facility] 06/11 08:45 ED course: dr goetz faxed formal report of cxr for fu mlg. ml 11:54 T-Sheet-- Draft Copy was scanned into [employer] and attached to record. gb 11:54 ECG/EKG was scanned into [employer] and attached to record. gb 11:55 Trend VS was scanned into [employer] and attached to record. gb Administered Medications: 06/10 15:41 Drug: Aspirin 324 mg [aspirin 81 mg chewable tablet (4 tabs)] Route: PO; ja5 15:43 Drug: Ondansetron 4 mg [ondansetron HCl 2 mg/mL intravenous solution (2 mL)] Route: ja5 IVP; Site: left antecubital; 15:46 Drug: morphine 2 mg [morphine 2 mg/mL intravenous cartridge (1 mL)] Route: IVP; Site: jc4 left antecubital; 16:00 Follow up: Pain 02/01 Adult ja5 Signatures: Dispatcher [employer] EDMS Dorota Garcia MD MD ml Anika Ayala, Reg Reg Parvez Tamez, SUPERVISOR [employer] SUPERVISOR [employer] Amandeep Alvarez,RN RN [id number] Amara Simon Jessica, RN RN ja5 Shaila Mendez RN jc4 The chart was reviewed and I authenticate all verbal orders and agree with the evaluation and treatment provided.Corrections: (The following items were deleted from the chart) 14:35 14:34 LIPASE+LAB ordered. EDMS EDMS 14:35 14:34 LIVER PROFILE+LAB ordered. EDMS EDMS Attachments: 17:11 [facility] Payment Agreement [facility] 06/11 11:54 T-Sheet-- Draft Copy gb 11:54 ECG/EKG gb Chart Complete MTDD
== END 2016-06-10 16:52 | disposition home or self-care (01) ==
LOC: M ED 13:51
DX: R07.9 Chest pain, unspecified (principal); R00.0 Tachycardia, unspecified; K21.9 Gastro-esophageal reflux disease without esophagitis; R10.9 Unspecified abdominal pain; G89.29 Other chronic pain; K22.2 Esophageal obstruction; Z86.19 Personal history of other infectious and parasitic diseases; Z79.899 Other long term (current) drug therapy; Z79.2 Long term (current) use of antibiotics; F17.210 Nicotine dependence, cigarettes, uncomplicated
CPT/HCPCS: 71020; 80048; 80076; 82550; 82553; 83690; 84484; 85025; 93005; 93041; 96374; 96375; 99284; J2405

== ENCOUNTER 2016-06-15 06:26 | Emergency (ER) | payer OTHER, MEDICARE ==
[2016-06-15 07:48] LABS: BASO % 1.3 % (0.0-1.0); EOS # 0.1 K/mm3 (0.0-0.50); EOS % 2.6 % (0.0-3.0); LARGE UNSTAINED CELL # 0.1 K/mm3 (0.0-0.4); LARGE UNSTAINED CELL % 1.5 % (0.0-4.0); LYMPH # 0.9 K/mm3 (1.5-4.5); LYMPH % 22.7 % (24.0-44.0); MEAN CORPUSCULAR HEMOGLOBIN 31.3 pg (27.0-33.0); MEAN CORPUSCULAR HGB CONC 32.1 g/dl (32.0-36.5); MEAN CORPUSCULAR VOLUME 97.6 fl (80.0-96.0); MONO # 0.2 K/mm3 (0.0-0.8); MONO % 6.7 % (0.0-5.0); NEUTROPHILS # 2.3 K/mm3 (1.8-7.7); NEUTROPHILS % 65.2 % (36.0-66.0); PLATELET COUNT, AUTOMATED 179 k/mm3 (150-450); RED CELL DISTRIBUTION WIDTH 14.7 % (11.5-14.5); WHITE BLOOD COUNT 3.6 K/mm3 (4.0-10.0)
[2016-06-15] MEDS ORDERED: MORPHINE 4 MG/ML 1ML SYRINGE As Ordered ONE (07:49)
[2016-06-15 07:56] LABS: ALBUMIN 2.8 GM/DL (3.2-5.2); ALBUMIN/GLOBULIN RATIO 0.82 (1.00-1.93); BILIRUBIN,DIRECT 0.2 MG/DL (0.0-0.2); BILIRUBIN,TOTAL 0.5 MG/DL (0.2-1.0); TOTAL PROTEIN 6.2 GM/DL (6.4-8.2)
[2016-06-15 07:57] LABS: ANION GAP 6 MEQ/L (8-16); CALCIUM LEVEL 8.1 MG/DL (8.5-10.1); CARBON DIOXIDE LEVEL 30 MEQ/L (21-32); CHLORIDE LEVEL 104 MEQ/L (98-107); CREATININE FOR GFR 0.62 MG/DL (0.70-1.30); GLOMERULAR FILTRATION RATE > 60.0 (>56); GLUCOSE, FASTING 86 MG/DL (70-105); POTASSIUM SERUM 3.9 MEQ/L (3.5-5.1); SODIUM LEVEL 140 MEQ/L (136-145)
[2016-06-15 08:00] LABS: BLOOD UREA NITROGEN 17 MG/DL (7-18)
--- NOTE | 2016-06-15 09:10 | REP ---
Portable chest x-ray: Single view. History: Chest pain. Comparison chest x-ray June 10 2016. Findings: The lungs remain hyperinflated but free of infiltrate. Heart is not enlarged. EKG monitoring electrodes overlie the chest. Pulmonary vasculature is not increased. Impression: Hyperinflation, otherwise no acute disease. Signed by Steven Fontaine MD 06/15/2016 01:10 P
[2016-06-15] MEDS ORDERED: oxyCODONE 10 MG CR TAB As Ordered ONE (09:21)
--- NOTE | 2016-06-15 10:30 | EDDOCDS ---
Physician Documentation [facility] Name: Edwar Stokes Age: 51 yrs Sex: Male : 1965 Arrival Date: 06/15/2016 Time: 06:26 Bed 11 Private MD: Disposition: 06/15/16 08:41 Transfer ordered to [facility]. Diagnosis is Generalized abdominal pain. - Reason for transfer: Higher level of care. - Accepting physician is Dr. Delarosa. - Condition is Stable. - Problem is an ongoing problem. - Symptoms have worsened. Historical: - Allergies: No known drug Allergies; - Home Meds: 1. aspirin 81 mg Oral tab 1 tab once daily 2. azithromycin 250 mg Oral tab 1 tab once daily 3. Carafate 100 mg/mL Oral susp 10 mL 4 times per day 4. cyanocobalamin (vitamin B-12) 1,000 mcg oral tab every 3 days 5. multivitamin Oral tab 1 tab daily 6. omeprazole 40 mg Oral cpDR 1 cap 2 times per day 7. oxycodone 20 mg Oral tab 1 tab every 4 hours (Last dose: 06/15/2016 00:00) 8. senna 8.6 mg oral tab 1 tabs twice a day 9. vitamin D-3 1000 units daily 10. Oysco-500 500 mg calcium (1,250 mg) oral tab twice a day 11. zinc gluconate 50 mg oral tab daily 12. Tab-A-Christian oral tab twice a day - PMHx: c diff; chronic abdominal pain; esophageal strictures; GERD; opiate abuse; - PSHx: Appendectomy; repair right tendon repair; Hernia repair- Umbilical; Gastric Bypass; G-Tube Insertion; Cholecystectomy; - Social history: Smoking status: Patient uses tobacco products, light tobacco smoker. No barriers to communication noted, The patient speaks fluent Luxembourgish. - Family history: Not pertinent. - : The pt / caregiver states he / she is not on anticoagulants. Home medication list is obtained from the patient. - Exposure Risk Screening:: None identified. Vital Signs: 06/15 06:35 BP 95 / 60 RA Supine (auto/reg); Pulse 60 MON; Resp 18 S; Temp 98.4(TE); Pulse Ox 99% cln on R/A; 06:46 Pulse 58 MON; Pulse Ox 99% ; mlc 06:46 BP 104 / 71 (auto/); mlc 07:01 BP 108 / 74 (auto/); jc4 07:01 Pulse 54 MON; Pulse Ox 99% ; jc4 07:16 BP 112 / 77 (auto/); jc4 07:16 Pulse 58 MON; Pulse Ox 99% ; jc4 07:24 BP 108 / 73 (auto/); jc4 07:24 Pulse 56 MON; Pulse Ox 99% ; jc4 07:26 BP 108 / 73; Pulse 56; Resp 14; Temp 96.7(O); Pulse Ox 98% on R/A; Pain 10/10; ja5 07:31 BP 103 / 71 (auto/); jc4 07:31 Pulse 56 MON; Pulse Ox 99% ; jc4 07:46 BP 107 / 67 (auto/); jc4 07:46 Pulse 52 MON; Pulse Ox 99% ; jc4 08:00 Weight 56.25 kg / 124.01 lbs; Height 5 ft. 11 in. (180.34 cm); jc4 08:01 BP 98 / 68 (auto/); jc4 08:01 Pulse 54 MON; Pulse Ox 98% ; jc4 08:16 BP 114 / 76 (auto/); jc4 08:16 Pulse 56 MON; Pulse Ox 98% ; jc4 08:27 Pain 10/10; ja5 08:31 BP 104 / 70 (auto/); jc4 08:31 Pulse 50 MON; Pulse Ox 99% ; jc4 08:45 Pain 10/10; ja5 08:46 BP 105 / 71 (auto/); jc4 08:46 Pulse 54 MON; Pulse Ox 98% ; jc4 09:01 BP 98 / 65 (auto/); jc4 09:01 Pulse 52 MON; Pulse Ox 99% ; jc4 09:16 BP 98 / 66 (auto/); jc4 09:16 Pulse 50 MON; Pulse Ox 99% ; jc4 09:31 BP 98 / 70 (auto/); jc4 09:31 Pulse 50 MON; Pulse Ox 99% ; jc4 09:46 BP 101 / 72 (auto/); jc4 09:46 Pulse 50 MON; Pulse Ox 99% ; jc4 10:01 BP 96 / 63 (auto/); jc4 10:01 Pulse 50 MON; Pulse Ox 99% ; jc4 10:28 Pain 9/10; jc4 10:29 BP 105 / 75; Pulse 58; Resp 20; Temp 97.8(O); Pulse Ox 99% on R/A; Pain 9/10; jc4 08:00 Body Mass Index 17.29 (56.25 kg, 180.34 cm) jc4 MDM: 06:36 ECG WITH READING ER PHYS+CARDIAG ordered. EDMS 07:39 Rural Electrification Engineer/Pulse Ox/q 30 min VS ordered. br1 07:39 IV Saline Lock ordered. br1 07:39 Rhythm Strip to chart ordered. br1 07:39 Undress patient appropriately for examination ordered. br1 07:39 NS 0.9% 1000 ml IV at 150 mL/hr continuous ordered. br1 07:40 morphine 4 mg IVP once ordered. br1 07:40 portable chest Ordered. EDMS 07:40 Basic Metabolic Profile Ordered. EDMS 07:40 CBC with Diff Ordered. EDMS 07:40 Cardiac Injury Profile Ordered. EDMS 07:40 Troponin Ordered. EDMS 07:41 Liver Profile Ordered. EDMS 07:41 Lipase Ordered. EDMS 07:57 CBC with Diff Reviewed. br1 08:10 Basic Metabolic Profile Reviewed. br1 08:10 Cardiac Injury Profile Reviewed. br1 08:10 Liver Profile Reviewed. br1 08:10 Troponin Reviewed. br1 08:10 Lipase Reviewed. br1 08:55 Financial registration complete. lg 08:59 oxyCODONE 20 mg PO once ordered. br1 09:39 [facility] Payment Agreement was scanned into [employer] and attached to record. lg Administered Medications: 08:02 Drug: NS 0.9% 1000 ml [sodium chloride 0.9 % intravenous solution] Route: IV; Rate: 150 ja5 mL/hr; Site: left antecubital; 10:28 Follow up: IV Status: Infusion continued on transport jc4 08:02 Drug: morphine 4 mg [morphine 4 mg/mL intravenous cartridge (1 mL)] Route: IVP; Site: ja5 left antecubital; 08:27 Follow up: Pain 10/10 Adult ja5 08:45 Follow up: Pain 10/10 Adult ja5 09:25 Drug: oxyCODONE 20 mg [oxycodone 5 mg tablet (4 tabs)] Route: PO; ja5 10:28 Follow up: Pain 9/10 Adult jc4 Signatures: Dispatcher [employer] Madhavi Bell, Reg Reg lg Juan Pablo Hitchcock MD MD br1 Shaila Mendez RN RN jc4 Anna Mustafa RN RN mlc Noa Muñoz RN ja5 The chart was reviewed and I authenticate all verbal orders and agree with the evaluation and treatment provided.Attachments: 09:39 [facility] Payment Agreement lg MTDD
--- NOTE | 2016-06-15 10:30 | EDDOCDS ---
Nurse's Notes [facility] Name: Edwar Stokes Age: 51 yrs Sex: Male : 1965 Arrival Date: 06/15/2016 Time: 06:26 Bed 11 Private MD: Diagnosis: Generalized abdominal pain Presentation: 06/15 06:29 Presenting complaint: EMS states: chest pain and abdominal pain for approx 1 week. pt mlc has a scheduled procedure for a scope next Thursday. 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 Adult Sepsis Screening: The patient does not have new or worsening altered mentation. Patient's respiratory rate is less than 22. Adult Sepsis Screening: Systolic blood pressure is less than or equal to 100 (1 point). Patient has a qSOFA score of 1- Negative Sepsis Screen. Suicide/Homicide risk assessment- the patient denies having any suicidal and/or homicidal ideations and does not present with any other emotional, behavioral or mental health complaints. Status: Patient is not a financial services director or dependent. Transition of care: patient was not received from another setting of care. 06:29 Acuity: ANA Level [facility] [place] Method Of Arrival: [place] [facility] [place] Care prior to arrival: IV initiated. Glucose check. 109. [facility] [place] Assessment: 06:36 General: Appears in no apparent distress, ill, Behavior is cooperative, flat. Pain: [facility] [place]: anterior aspect of left upper chest, left breast and abdomen Pain currently is 10 out of 10 on a pain scale. HIV screening NA for this visit Offered previously. The patient is triaged at the bedside. See Assessment in Nurses Notes section of ED record. Neurological: Level of Consciousness is awake, lethargic, obeys commands, Oriented to person, place, time. Cardiovascular: Chest pain is described as Pain is 10 out of 10 on a pain scale. radiates Does not radiate. episodes are continuous began 1 week. Respiratory: Airway is patent Respiratory effort is even, unlabored, Respiratory pattern is regular. Derm: Skin is pale. Historical: - Allergies: No known drug Allergies; - Home Meds: 1. aspirin 81 mg Oral tab 1 tab once daily 2. azithromycin 250 mg Oral tab 1 tab once daily 3. Carafate 100 mg/mL Oral susp 10 mL 4 times per day 4. cyanocobalamin (vitamin B-12) 1,000 mcg oral tab every 3 days 5. multivitamin Oral tab 1 tab daily 6. omeprazole 40 mg Oral cpDR 1 cap 2 times per day 7. oxycodone 20 mg Oral tab 1 tab every 4 hours (Last dose: 06/15/2016 00:00) 8. senna 8.6 mg oral tab 1 tabs twice a day 9. vitamin D-3 1000 units daily 10. Oysco-500 500 mg calcium (1,250 mg) oral tab twice a day 11. zinc gluconate 50 mg oral tab daily 12. Tab-A-Christian oral tab twice a day - PMHx: c diff; chronic abdominal pain; esophageal strictures; GERD; opiate abuse; - PSHx: Appendectomy; repair right tendon repair; Hernia repair- Umbilical; Gastric Bypass; G-Tube Insertion; Cholecystectomy; - Social history: Smoking status: Patient uses tobacco products, light tobacco smoker. No barriers to communication noted, The patient speaks fluent Eritrean. - Family history: Not pertinent. - : The pt / caregiver states he / she is not on anticoagulants. Home medication list is obtained from the patient. - Exposure Risk Screening:: None identified. Screenin:38 Screening information is obtained from the patient. [facility] [place] [place] Fall risk: No risks identified. Assistance ADL's: Requires assistance with housework, mlc assistance is provided by family members, medication administration, assistance is provided by family members. Abuse/DV Screen: The patient / caregiver reports he/she is: not in a situation that causes fear, pain or injury. Nutritional screening: No deficits noted. Advance Directives: Currently, there is no health care proxy. There is no Power of Security Officers And Guards. home support is adequate. Assessment: 06:43 General: Appears in no apparent distress, ill, emaciated, Behavior is cooperative, mlc drowsy. Neurological: Level of Consciousness is lethargic, obeys commands, Oriented to person, place, time. Cardiovascular: Capillary refill < 3 seconds Heart tones S1 S2 present Rhythm is regular. Respiratory: Airway is patent Respiratory effort is even, unlabored, Respiratory pattern is regular, Breath sounds are clear bilaterally. GI: Abdomen is flat, Bowel sounds present X 4 quads. Derm: Skin is pale. 07:28 General: Appears ill, Behavior is cooperative. Neurological: Level of Consciousness is ja5 awake, alert, Oriented to person, place, time. Cardiovascular: Capillary refill < 3 seconds Heart tones S1 S2 present. Respiratory: Airway is patent Respiratory effort is Respiratory pattern is regular, Breath sounds are clear bilaterally. GI: Abdomen is flat, non- distended Bowel sounds present X 4 quads. Abd is tender to palpation in left lower quadrant. Derm: Skin is intact, Skin is dry, Skin is pale. 08:26 General: patient laying in stretcher and reports pain of 10/10 unrelieved by pain ja5 medication administration. Patient was given a warm blanket as a compress and placed on abdomen. . 09:29 General: Patient still has pain 10/10, PO pain medication administered. . ja5 10:26 General: Appears in no apparent distress, emaciated, Behavior is appropriate for age. jc4 Pain: Pain currently is 9 out of 10 on a pain scale. Neurological: Level of Consciousness is awake, alert, Oriented to person, place, time. Respiratory: Airway is patent Respiratory effort is even, unlabored, Respiratory pattern is regular, symmetrical. Derm: Skin is dry, Skin is pale, Skin temperature is warm. Vital Signs: 06:35 BP 95 / 60 RA Supine (auto/reg); Pulse 60 MON; Resp 18 S; Temp 98.4(TE); Pulse Ox 99% cln on R/A; 06:46 Pulse 58 MON; Pulse Ox 99% ; mlc 06:46 BP 104 / 71 (auto/); mlc 07:01 BP 108 / 74 (auto/); jc4 07:01 Pulse 54 MON; Pulse Ox 99% ; jc4 07:16 BP 112 / 77 (auto/); jc4 07:16 Pulse 58 MON; Pulse Ox 99% ; jc4 07:24 BP 108 / 73 (auto/); jc4 07:24 Pulse 56 MON; Pulse Ox 99% ; jc4 07:26 BP 108 / 73; Pulse 56; Resp 14; Temp 96.7(O); Pulse Ox 98% on R/A; Pain 10/10; ja5 07:31 BP 103 / 71 (auto/); jc4 07:31 Pulse 56 MON; Pulse Ox 99% ; jc4 07:46 BP 107 / 67 (auto/); jc4 07:46 Pulse 52 MON; Pulse Ox 99% ; jc4 08:00 Weight 56.25 kg; Height 5 ft. 11 in. (180.34 cm); jc4 08:01 BP 98 / 68 (auto/); jc4 08:01 Pulse 54 MON; Pulse Ox 98% ; jc4 08:16 BP 114 / 76 (auto/); jc4 08:16 Pulse 56 MON; Pulse Ox 98% ; jc4 08:27 Pain 10/10; ja5 08:31 BP 104 / 70 (auto/); jc4 08:31 Pulse 50 MON; Pulse Ox 99% ; jc4 08:45 Pain 10/10; ja5 08:46 BP 105 / 71 (auto/); jc4 08:46 Pulse 54 MON; Pulse Ox 98% ; jc4 09:01 BP 98 / 65 (auto/); jc4 09:01 Pulse 52 MON; Pulse Ox 99% ; jc4 09:16 BP 98 / 66 (auto/); jc4 09:16 Pulse 50 MON; Pulse Ox 99% ; jc4 09:31 BP 98 / 70 (auto/); jc4 09:31 Pulse 50 MON; Pulse Ox 99% ; jc4 09:46 BP 101 / 72 (auto/); jc4 09:46 Pulse 50 MON; Pulse Ox 99% ; jc4 10:01 BP 96 / 63 (auto/); jc4 10:01 Pulse 50 MON; Pulse Ox 99% ; jc4 10:28 Pain 9/10; jc4 10:29 BP 105 / 75; Pulse 58; Resp 20; Temp 97.8(O); Pulse Ox 99% on R/A; Pain 9/10; jc4 08:00 Body Mass Index 17.29 (56.25 kg, 180.34 cm) 4 Vitals: 06:36 Log In Time N/A - ambulance [place] [facility] [place] Course: 06:27 Patient visited by Alesha Agustin PCA. marita 06:27 Anna Mustafa,RN is Primary Nurse. marita 06:27 Patient moved to Waiting marita 06:27 Patient moved to 11 marita 06:32 Triage Initiated mlc 06:36 Patient visited by Deborah Salazar PCA. cln 06:36 Pt greeted and oriented to ED. Patient advised of names of staff involved in care, cln location of call [place], wait times and NPO status. Patient has correct armband on for positive identification. Placed in gown. Bed in low position. Call light in reach. Side rails up X 1. 06:38 Patient visited by Deborah Salazar PCA. cln 06:38 EKG done. (by ED staff). Reviewed by Robert Nina DO. cln 06:39 family preservation officer on. Pulse ox on. NIBP on. mlc 06:43 Maintain field IV. Dressing intact. Site clean & dry. Gauge & site: 18g left AC. mlc 06:44 Patient visited by Anna Mustafa RN. mlc 07:07 Noa Muñoz RN is Primary Nurse. ja5 07:11 Primary Nurse role handed off by Anna Mustafa RN ar3 07:15 The patient / caregiver is instructed regarding the plan of care and ED course. jc4 07:22 Shaila Mendez RN is Primary Nurse. jc4 07:32 Juan Pablo Hitchcock MD is Attending Physician. br1 07:34 Patient visited by Noa Muñoz RN. ja5 07:38 Patient visited by Juan Pablo Hitchcock MD. br1 07:41 Patient visited by Maria Eugenia Power. nb2 08:02 Patient visited by Noa Muñoz RN. ja5 08:25 Patient visited by Noa Muñoz RN. ja5 08:27 Patient visited by Noa Muñoz RN. ja5 08:46 Patient visited by Noa Muñoz RN. ja5 09:13 portable chest Returned. EDMS 09:25 Patient visited by Noa Muñoz RN. ja5 09:39 [facility] Payment Agreement was scanned into [employer] and attached to record. lg 10:28 No procedures done that require assistance. jc4 Administered Medications: 08:02 Drug: NS 0.9% 1000 ml [sodium chloride 0.9 % intravenous solution] Route: IV; Rate: 150 ja5 mL/hr; Site: left antecubital; 10:28 Follow up: IV Status: Infusion continued on transport jc4 08:02 Drug: morphine 4 mg [morphine 4 mg/mL intravenous cartridge (1 mL)] Route: IVP; Site: ja5 left antecubital; 08:27 Follow up: Pain 10/10 Adult ja5 08:45 Follow up: Pain 10/10 Adult ja5 09:25 Drug: oxyCODONE 20 mg [oxycodone 5 mg tablet (4 tabs)] Route: PO; ja5 10:28 Follow up: Pain 02/01 Adult jc4 Order Results: Lab Order: Basic Metabolic Profile; SPEC'M 06/15/16 06:51 Test: GLUCOSE, FASTING; Value: 86; Range: 70-105; Units: MG/DL; Status: F Test: BLOOD UREA NITROGEN; Value: 17; Range: 7-18; Units: MG/DL; Status: F Test: CREATININE FOR GFR; Value: 0.62; Range: 0.70-1.30; Abnormal: Below low normal; Units: MG/DL; Status: F Test: GLOMERULAR FILTRATION RATE; Value: > 60.0; Range: >56; Status: F Test: SODIUM LEVEL; Value: 140; Range: 136-145; Units: MEQ/L; Status: F Test: POTASSIUM SERUM; Value: 3.9; Range: 3.5-5.1; Units: MEQ/L; Status: F Test: CHLORIDE LEVEL; Value: 104; Range: 98-107; Units: MEQ/L; Status: F Test: CARBON DIOXIDE LEVEL; Value: 30; Range: 21-32; Units: MEQ/L; Status: F Test: ANION GAP; Value: 6; Range: 8-16; Abnormal: Below low normal; Units: MEQ/L; Status: F Test: CALCIUM LEVEL; Value: 8.1; Range: 8.5-10.1; Abnormal: Below low normal; Units: MG/DL; Status: F Test Note: ; Units are mL/min/1.73 m2 Chronic Kidney Disease Staging per NKF: Stage I & II GFR >=60 Normal to Mildly Decreased Stage III GFR 30-59 Moderately Decreased Stage IV GFR 15-29 Severely Decreased Stage V GFR <15 Very Little GFR Left ESRD GFR <15 on DYE RANGE FEEDER Lab Order: CBC with Diff; SPEC'M 06/15/16 06:51 Test: WHITE BLOOD COUNT; Value: 3.6; Range: 4.0-10.0; Abnormal: Below low normal; Units: K/mm3; Status: F Test: RED BLOOD COUNT; Value: 3.70; Range: 4.30-6.10; Abnormal: Below low normal; Units: M/mm3; Status: F Test: HEMOGLOBIN; Value: 11.6; Range: 14.0-18.0; Abnormal: Below low normal; Units: g/dl; Status: F Test: HEMATOCRIT; Value: 36.1; Range: 42.0-52.0; Abnormal: Below low normal; Units: %; Status: F Test: MEAN CORPUSCULAR VOLUME; Value: 97.6; Range: 80.0-96.0; Abnormal: Above high normal; Units: fl; Status: F Test: MEAN CORPUSCULAR HEMOGLOBIN; Value: 31.3; Range: 27.0-33.0; Units: pg; Status: F Test: MEAN CORPUSCULAR HGB CONC; Value: 32.1; Range: 32.0-36.5; Units: g/dl; Status: F Test: RED CELL DISTRIBUTION WIDTH; Value: 14.7; Range: 11.5-14.5; Abnormal: Above high normal; Units: %; Status: F Test: PLATELET COUNT, AUTOMATED; Value: 179; Range: 150-450; Units: k/mm3; Status: F Test: NEUTROPHILS %; Value: 65.2; Range: 36.0-66.0; Units: %; Status: F Test: LYMPH %; Value: 22.7; Range: 24.0-44.0; Abnormal: Below low normal; Units: %; Status: F Test: MONO %; Value: 6.7; Range: 0.0-5.0; Abnormal: Above high normal; Units: %; Status: F Test: EOS %; Value: 2.6; Range: 0.0-3.0; Units: %; Status: F Test: BASO %; Value: 1.3; Range: 0.0-1.0; Abnormal: Above high normal; Units: %; Status: F Test: LARGE UNSTAINED CELL %; Value: 1.5; Range: 0.0-4.0; Units: %; Status: F Test: NEUTROPHILS #; Value: 2.3; Range: 1.8-7.7; Units: K/mm3; Status: F Test: LYMPH #; Value: 0.9; Range: 1.5-4.5; Abnormal: Below low normal; Units: K/mm3; Status: F Test: MONO #; Value: 0.2; Range: 0.0-0.8; Units: K/mm3; Status: F Test: EOS #; Value: 0.1; Range: 0.0-0.50; Units: K/mm3; Status: F Test: BASO #; Value: 0.0; Range: 0.0-0.2; Units: K/mm3; Status: F Test: LARGE UNSTAINED CELL #; Value: 0.1; Range: 0.0-0.4; Units: K/mm3; Status: F Lab Order: Cardiac Injury Profile; SPEC' 06/15/16 06:51 Test: CPK CREATINE PHOSPHOKINASE; Value: 20; Range: 39-308; Abnormal: Below low normal; Units: U/L; Status: F Test: CK-MB VALUE MASS; Value: 1.0; Range: 0.0-3.6; Units: NG/ML; Status: F Test: MB/CK RELATIVE INDEX; Value: 5.00; Range: < OR =4; Abnormal: Above high normal; Status: F Test Note: ; DIAGNOSIS CRITERIA MMB ng/ml Relative Index (RI) NON-AMI < or = 5 N/A PIPER ZONE > 5 < or = 4 AMI > 5 > 4 Lab Order: Troponin; [facility]' 06/15/16 06:51 Test: TROPONIN I; Value: < 0.02; Range: < 0.10; Units: NG/ML; Status: F Test Note: ; Troponin I Reference Interval for Codementor LOCI: 99th Percentile= 0.00-0.045 ng/ml Risk Stratification: <= 0.10 ng/ml Decreased Risk for Adverse Clinical Events. 0.10-1.50 ng/ml Increased Risk for Adverse Clinical Events. Evaluation of additional criterion and/or repeat testing in 2-6 hours is suggested to rule out myocardial damage. >= 1.50 ng/ml Indicative of Myocardial Injury. Lab Order: Liver Profile; SPEC'M 06/15/16 06:51 Test: AST/SGOT; Value: 9; Range: 15-37; Abnormal: Below low normal; Units: U/L; Status: F Test: ALT/SGPT; Value: 13; Range: 12-78; Units: U/L; Status: F Test: ALKALINE PHOSPHATASE; Value: 72; Range: 45-117; Units: U/L; Status: F Test: BILIRUBIN,TOTAL; Value: 0.5; Range: 0.2-1.0; Units: MG/DL; Status: F Test: BILIRUBIN,DIRECT; Value: 0.2; Range: 0.0-0.2; Units: MG/DL; Status: F Test: TOTAL PROTEIN; Value: 6.2; Range: 6.4-8.2; Abnormal: Below low normal; Units: GM/DL; Status: F Test: ALBUMIN; Value: 2.8; Range: 3.2-5.2; Abnormal: Below low normal; Units: GM/DL; Status: F Test: ALBUMIN/GLOBULIN RATIO; Value: 0.82; Range: 1.00-1.93; Abnormal: Below low normal; Status: F Lab Order: Lipase; SPEC'M 06/15/16 06:51 Test: LIPASE; Value: 76; Range: 73-393; Units: U/L; Status: F Radiology Order: portable chest Test: portable chest REASON FOR EXAMINATION: Chest Pain; Portable chest x-ray: Single view.; ; History: Chest pain.; ; Comparison chest x-ray June 10 2016.; ; Findings: The lungs remain hyperinflated but free of infiltrate. Heart is not; enlarged. EKG monitoring electrodes overlie the chest. Pulmonary vasculature is; not increased.; ; Impression:; ; Hyperinflation, otherwise no acute disease.; ; ; ; ; Unreviewed; Outcome: 08:41 ER care complete, transfer ordered by Provider. br1 10:27 Discharge Assessment: Patient awake, alert and oriented x 3. No cognitive and/or jc4 functional deficits noted. Patient verbalized understanding of disposition instructions. patient administered narcotics - yes. Patient was admitted to the hospital or transferred to another facility. The following High Risk Discharge criteria are identified: None. Transferred to [facility]. by EMS ground [facility] ambulance report to accompanying personnel Megha Wright, EMT-P & Abel. Vanna EMT-B, Transfer form completed. x-rays sent w/ patient. Condition: stable. No special radiology studies were completed. Admission hand-off: Other: Report has been called to Emir Morrow RN at [place] . Property :Personal belongings accompany Pt. 10:29 Patient left the ED. jc4 Signatures: Dispatcher [employer] Madhavi Bell, Reg Reg lg Juan Pablo Hitchcock, MD MOHAMUD br1 Maria L, Lian, COUNTY LIBRARY DIRECTOR COUNTY LIBRARY DIRECTOR ar3 Vanessa, Shaila, RN RN jc4 Vamsi, Alesha, COUNTY LIBRARY DIRECTOR COUNTY LIBRARY DIRECTOR marita Ramsey,Anna,RN RN mlc Marie, Debroah, COUNTY LIBRARY DIRECTOR COUNTY LIBRARY DIRECTOR cln Tono, Maria Eugenia nb2 Noa Muñoz,RN RN ja5 MTDD
--- NOTE | 2016-06-15 13:14 | ECGEPIP ---
Stationary ECG Study [facility] - ED Test Date: 2016-06-15 Pat Name: GRAHAM COLEMAN Department: Room: - Gender: M Film Maker: [place] : 1965 Requested By: BERE APARICIO Order Number: [id number] Reading MD: Kathryn Berg Measurements Intervals [place] Rate: 54 P: 80 AL: 191 QRS: 3 QRSD: 107 T: 53 QT: 432 QTc: 410 Interpretive Statements SINUS BRADYCARDIA LOW QRS VOLTAGE IN EXTREMITY LEADS SIMILAR 06/10/16 Electronically Signed On 06-15-2016 13:14:00 EST by Kathryn Berg
--- NOTE | 2016-06-17 11:30 | EDDOCDS ---
Physician Documentation [facility] Name: Edwar Stokes Age: 51 yrs Sex: Male : 1965 Arrival Date: 06/15/2016 Time: 06:26 Bed 11 Private MD: Disposition: 06/15/16 08:41 Transfer ordered to [facility]. Diagnosis is Generalized abdominal pain. - Reason for transfer: Higher level of care. - Accepting physician is Dr. Delarosa. - Condition is Stable. - Problem is an ongoing problem. - Symptoms have worsened. Historical: - Allergies: No known drug Allergies; - Home Meds: 1. aspirin 81 mg Oral tab 1 tab once daily 2. azithromycin 250 mg Oral tab 1 tab once daily 3. Carafate 100 mg/mL Oral susp 10 mL 4 times per day 4. cyanocobalamin (vitamin B-12) 1,000 mcg oral tab every 3 days 5. multivitamin Oral tab 1 tab daily 6. omeprazole 40 mg Oral cpDR 1 cap 2 times per day 7. oxycodone 20 mg Oral tab 1 tab every 4 hours (Last dose: 06/15/2016 00:00) 8. senna 8.6 mg oral tab 1 tabs twice a day 9. vitamin D-3 1000 units daily 10. Oysco-500 500 mg calcium (1,250 mg) oral tab twice a day 11. zinc gluconate 50 mg oral tab daily 12. Tab-A-Christian oral tab twice a day - PMHx: c diff; chronic abdominal pain; esophageal strictures; GERD; opiate abuse; - PSHx: Appendectomy; repair right tendon repair; Hernia repair- Umbilical; Gastric Bypass; G-Tube Insertion; Cholecystectomy; - Social history: Smoking status: Patient uses tobacco products, light tobacco smoker. No barriers to communication noted, The patient speaks fluent Pashto. - Family history: Not pertinent. - : The pt / caregiver states he / she is not on anticoagulants. Home medication list is obtained from the patient. - Exposure Risk Screening:: None identified. Vital Signs: 06/15 06:35 BP 95 / 60 RA Supine (auto/reg); Pulse 60 MON; Resp 18 S; Temp 98.4(TE); Pulse Ox 99% cln on R/A; 06:46 Pulse 58 MON; Pulse Ox 99% ; mlc 06:46 BP 104 / 71 (auto/); mlc 07:01 BP 108 / 74 (auto/); jc4 07:01 Pulse 54 MON; Pulse Ox 99% ; jc4 07:16 BP 112 / 77 (auto/); jc4 07:16 Pulse 58 MON; Pulse Ox 99% ; jc4 07:24 BP 108 / 73 (auto/); jc4 07:24 Pulse 56 MON; Pulse Ox 99% ; jc4 07:26 BP 108 / 73; Pulse 56; Resp 14; Temp 96.7(O); Pulse Ox 98% on R/A; Pain 10/10; ja5 07:31 BP 103 / 71 (auto/); jc4 07:31 Pulse 56 MON; Pulse Ox 99% ; jc4 07:46 BP 107 / 67 (auto/); jc4 07:46 Pulse 52 MON; Pulse Ox 99% ; jc4 08:00 Weight 56.25 kg / 124.01 lbs; Height 5 ft. 11 in. (180.34 cm); jc4 08:01 BP 98 / 68 (auto/); jc4 08:01 Pulse 54 MON; Pulse Ox 98% ; jc4 08:16 BP 114 / 76 (auto/); jc4 08:16 Pulse 56 MON; Pulse Ox 98% ; jc4 08:27 Pain 10/10; ja5 08:31 BP 104 / 70 (auto/); jc4 08:31 Pulse 50 MON; Pulse Ox 99% ; jc4 08:45 Pain 10/10; ja5 08:46 BP 105 / 71 (auto/); jc4 08:46 Pulse 54 MON; Pulse Ox 98% ; jc4 09:01 BP 98 / 65 (auto/); jc4 09:01 Pulse 52 MON; Pulse Ox 99% ; jc4 09:16 BP 98 / 66 (auto/); jc4 09:16 Pulse 50 MON; Pulse Ox 99% ; jc4 09:31 BP 98 / 70 (auto/); jc4 09:31 Pulse 50 MON; Pulse Ox 99% ; jc4 09:46 BP 101 / 72 (auto/); jc4 09:46 Pulse 50 MON; Pulse Ox 99% ; jc4 10:01 BP 96 / 63 (auto/); jc4 10:01 Pulse 50 MON; Pulse Ox 99% ; jc4 10:28 Pain 9/10; jc4 10:29 BP 105 / 75; Pulse 58; Resp 20; Temp 97.8(O); Pulse Ox 99% on R/A; Pain 9/10; jc4 08:00 Body Mass Index 17.29 (56.25 kg, 180.34 cm) jc4 MDM: 06:36 ECG WITH READING ER PHYS+CARDIAG ordered. EDMS 07:39 Produce Production Team Member/Pulse Ox/q 30 min VS ordered. br1 07:39 IV Saline Lock ordered. br1 07:39 Rhythm Strip to chart ordered. br1 07:39 Undress patient appropriately for examination ordered. br1 07:39 NS 0.9% 1000 ml IV at 150 mL/hr continuous ordered. br1 07:40 morphine 4 mg IVP once ordered. br1 07:40 portable chest Ordered. EDMS 07:40 Basic Metabolic Profile Ordered. EDMS 07:40 CBC with Diff Ordered. EDMS 07:40 Cardiac Injury Profile Ordered. EDMS 07:40 Troponin Ordered. EDMS 07:41 Liver Profile Ordered. EDMS 07:41 Lipase Ordered. EDMS 07:57 CBC with Diff Reviewed. br1 08:10 Basic Metabolic Profile Reviewed. br1 08:10 Cardiac Injury Profile Reviewed. br1 08:10 Liver Profile Reviewed. br1 08:10 Troponin Reviewed. br1 08:10 Lipase Reviewed. br1 08:55 Financial registration complete. lg 08:59 oxyCODONE 20 mg PO once ordered. br1 09:39 [facility] Payment Agreement was scanned into [employer] and attached to record. lg 17:33 ECG/EKG was scanned into [employer] and attached to record. kf3 17:34 Trend VS was scanned into [employer] and attached to record. kf3 17:34 T-Sheet-- Draft Copy was scanned into [employer] and attached to record. kf3 Administered Medications: 08:02 Drug: NS 0.9% 1000 ml [sodium chloride 0.9 % intravenous solution] Route: IV; Rate: 150 ja5 mL/hr; Site: left antecubital; 10:28 Follow up: IV Status: Infusion continued on transport jc4 08:02 Drug: morphine 4 mg [morphine 4 mg/mL intravenous cartridge (1 mL)] Route: IVP; Site: ja5 left antecubital; 08:27 Follow up: Pain 10/10 Adult ja5 08:45 Follow up: Pain 10/10 Adult ja5 09:25 Drug: oxyCODONE 20 mg [oxycodone 5 mg tablet (4 tabs)] Route: PO; ja5 10:28 Follow up: Pain 02/01 Adult jc4 Signatures: Dispatcher [employer] EDMS Anita Madhavi, Reg Reg lg Jaime Argueta, Reg Reg kf3 Juan Pablo Hitchcock MD MD br1 Shaila Mendez RN RN jc4 Anna Mustafa RN RN mlc Anderson, Jessica RN ja5 The chart was reviewed and I authenticate all verbal orders and agree with the evaluation and treatment provided.Attachments: 09:39 [facility] Payment Agreement lg 17:33 ECG/EKG kf3 17:34 T-Sheet-- Draft Copy kf3 Chart Complete MTDD
--- NOTE | 2016-06-17 11:30 | EDDOCDS ---
Nurse's Notes [facility] Name: Edwar Stokes Age: 51 yrs Sex: Male : 1965 Arrival Date: 06/15/2016 Time: 06:26 Bed 11 Private MD: Diagnosis: Generalized abdominal pain Presentation: 06/15 06:29 Presenting complaint: EMS states: chest pain and abdominal pain for approx 1 week. pt mlc has a scheduled procedure for a scope next Thursday. 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 Adult Sepsis Screening: The patient does not have new or worsening altered mentation. Patient's respiratory rate is less than 22. Adult Sepsis Screening: Systolic blood pressure is less than or equal to 100 (1 point). Patient has a qSOFA score of 1- Negative Sepsis Screen. Suicide/Homicide risk assessment- the patient denies having any suicidal and/or homicidal ideations and does not present with any other emotional, behavioral or mental health complaints. Status: Patient is not a director of consulting services or dependent. Transition of care: patient was not received from another setting of care. 06:29 Acuity: ANA Level 3 [facility] 06:29 Method Of Arrival: Ambulance [facility] 06:38 Care prior to arrival: IV initiated. Glucose check. 109. [facility] Triage Assessment: 06:36 General: Appears in no apparent distress, ill, Behavior is cooperative, flat. Pain: [facility] Location: anterior aspect of left upper chest, left breast and abdomen Pain currently is 10 out of 10 on a pain scale. HIV screening NA for this visit Offered previously. The patient is triaged at the bedside. See Assessment in Nurses Notes section of ED record. Neurological: Level of Consciousness is awake, lethargic, obeys commands, Oriented to person, place, time. Cardiovascular: Chest pain is described as Pain is 10 out of 10 on a pain scale. radiates Does not radiate. episodes are continuous began 1 week. Respiratory: Airway is patent Respiratory effort is even, unlabored, Respiratory pattern is regular. Derm: Skin is pale. Historical: - Allergies: No known drug Allergies; - Home Meds: 1. aspirin 81 mg Oral tab 1 tab once daily 2. azithromycin 250 mg Oral tab 1 tab once daily 3. Carafate 100 mg/mL Oral susp 10 mL 4 times per day 4. cyanocobalamin (vitamin B-12) 1,000 mcg oral tab every 3 days 5. multivitamin Oral tab 1 tab daily 6. omeprazole 40 mg Oral cpDR 1 cap 2 times per day 7. oxycodone 20 mg Oral tab 1 tab every 4 hours (Last dose: 06/15/2016 00:00) 8. senna 8.6 mg oral tab 1 tabs twice a day 9. vitamin D-3 1000 units daily 10. Oysco-500 500 mg calcium (1,250 mg) oral tab twice a day 11. zinc gluconate 50 mg oral tab daily 12. Tab-A-Christian oral tab twice a day - PMHx: c diff; chronic abdominal pain; esophageal strictures; GERD; opiate abuse; - PSHx: Appendectomy; repair right tendon repair; Hernia repair- Umbilical; Gastric Bypass; G-Tube Insertion; Cholecystectomy; - Social history: Smoking status: Patient uses tobacco products, light tobacco smoker. No barriers to communication noted, The patient speaks fluent Tongan. - Family history: Not pertinent. - : The pt / caregiver states he / she is not on anticoagulants. Home medication list is obtained from the patient. - Exposure Risk Screening:: None identified. Screenin:38 Screening information is obtained from the patient. [facility] 06:39 Fall risk: No risks identified. Assistance ADL's: Requires assistance with housework, mlc assistance is provided by family members, medication administration, assistance is provided by family members. Abuse/DV Screen: The patient / caregiver reports he/she is: not in a situation that causes fear, pain or injury. Nutritional screening: No deficits noted. Advance Directives: Currently, there is no health care proxy. 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 home support is adequate. Assessment: 06:43 General: Appears in no apparent distress, ill, emaciated, Behavior is cooperative, mlc drowsy. Neurological: Level of Consciousness is lethargic, obeys commands, Oriented to person, place, time. Cardiovascular: Capillary refill < 3 seconds Heart tones S1 S2 present Rhythm is regular. Respiratory: Airway is patent Respiratory effort is even, unlabored, Respiratory pattern is regular, Breath sounds are clear bilaterally. GI: Abdomen is flat, Bowel sounds present X 4 quads. Derm: Skin is pale. 07:28 General: Appears ill, Behavior is cooperative. Neurological: Level of Consciousness is ja5 awake, alert, Oriented to person, place, time. Cardiovascular: Capillary refill < 3 seconds Heart tones S1 S2 present. Respiratory: Airway is patent Respiratory effort is Respiratory pattern is regular, Breath sounds are clear bilaterally. GI: Abdomen is flat, non- distended Bowel sounds present X 4 quads. Abd is tender to palpation in left lower quadrant. Derm: Skin is intact, Skin is dry, Skin is pale. 08:26 General: patient laying in stretcher and reports pain of 10/10 unrelieved by pain ja5 medication administration. Patient was given a warm blanket as a compress and placed on abdomen. . 09:29 General: Patient still has pain 10/10, PO pain medication administered. . ja5 10:26 General: Appears in no apparent distress, emaciated, Behavior is appropriate for age. jc4 Pain: Pain currently is 9 out of 10 on a pain scale. Neurological: Level of Consciousness is awake, alert, Oriented to person, place, time. Respiratory: Airway is patent Respiratory effort is even, unlabored, Respiratory pattern is regular, symmetrical. Derm: Skin is dry, Skin is pale, Skin temperature is warm. Vital Signs: 06:35 BP 95 / 60 RA Supine (auto/reg); Pulse 60 MON; Resp 18 S; Temp 98.4(TE); Pulse Ox 99% cln on R/A; 06:46 Pulse 58 MON; Pulse Ox 99% ; mlc 06:46 BP 104 / 71 (auto/); mlc 07:01 BP 108 / 74 (auto/); jc4 07:01 Pulse 54 MON; Pulse Ox 99% ; jc4 07:16 BP 112 / 77 (auto/); jc4 07:16 Pulse 58 MON; Pulse Ox 99% ; jc4 07:24 BP 108 / 73 (auto/); jc4 07:24 Pulse 56 MON; Pulse Ox 99% ; jc4 07:26 BP 108 / 73; Pulse 56; Resp 14; Temp 96.7(O); Pulse Ox 98% on R/A; Pain 10/10; ja5 07:31 BP 103 / 71 (auto/); jc4 07:31 Pulse 56 MON; Pulse Ox 99% ; jc4 07:46 BP 107 / 67 (auto/); jc4 07:46 Pulse 52 MON; Pulse Ox 99% ; jc4 08:00 Weight 56.25 kg; Height 5 ft. 11 in. (180.34 cm); jc4 08:01 BP 98 / 68 (auto/); jc4 08:01 Pulse 54 MON; Pulse Ox 98% ; jc4 08:16 BP 114 / 76 (auto/); jc4 08:16 Pulse 56 MON; Pulse Ox 98% ; jc4 08:27 Pain 10/10; ja5 08:31 BP 104 / 70 (auto/); jc4 08:31 Pulse 50 MON; Pulse Ox 99% ; jc4 08:45 Pain 10/10; ja5 08:46 BP 105 / 71 (auto/); jc4 08:46 Pulse 54 MON; Pulse Ox 98% ; jc4 09:01 BP 98 / 65 (auto/); jc4 09:01 Pulse 52 MON; Pulse Ox 99% ; jc4 09:16 BP 98 / 66 (auto/); jc4 09:16 Pulse 50 MON; Pulse Ox 99% ; jc4 09:31 BP 98 / 70 (auto/); jc4 09:31 Pulse 50 MON; Pulse Ox 99% ; jc4 09:46 BP 101 / 72 (auto/); jc4 09:46 Pulse 50 MON; Pulse Ox 99% ; jc4 10:01 BP 96 / 63 (auto/); jc4 10:01 Pulse 50 MON; Pulse Ox 99% ; jc4 10:28 Pain 9/10; jc4 10:29 BP 105 / 75; Pulse 58; Resp 20; Temp 97.8(O); Pulse Ox 99% on R/A; Pain 9/10; jc4 08:00 Body Mass Index 17.29 (56.25 kg, 180.34 cm) 4 Vitals: 06:36 Log In Time N/A - ambulance arrival. [facility] ED Course: 06:27 Patient visited by Alesha Agustin PCA. marita 06:27 Anna Mustafa,RN is Primary Nurse. marita 06:27 Patient moved to Waiting marita 06:27 Patient moved to 11 marita 06:32 Triage Initiated mlc 06:36 Patient visited by Deborah Salazar PCA. cln 06:36 Pt greeted and oriented to ED. Patient advised of names of staff involved in care, cln location of call [place], wait times and NPO status. Patient has correct armband on for positive identification. Placed in gown. Bed in low position. Call light in reach. Side rails up X 1. 06:38 Patient visited by Deborah Salazar PCA. cln 06:38 EKG done. (by ED staff). Reviewed by Bere Aparicio DO. cln 06:39 monitoring specialist on. Pulse ox on. NIBP on. mlc 06:43 Maintain field IV. Dressing intact. Site clean & dry. Gauge & site: 18g left AC. mlc 06:44 Patient visited by Anna Mustafa RN. mlc 07:07 Noa Muñoz RN is Primary Nurse. ja5 07:11 Primary Nurse role handed off by Anna Mustafa RN ar3 07:15 The patient / caregiver is instructed regarding the plan of care and ED course. jc4 07:22 Shaila Mendez RN is Primary Nurse. jc4 07:32 Juan Pablo Hitchcock MD is Attending Physician. br1 07:34 Patient visited by Noa Muñoz RN. ja5 07:38 Patient visited by Juan Pablo Hitchcock MD. br1 07:41 Patient visited by Maria Eugenia Power. nb2 08:02 Patient visited by Noa Muñoz RN. ja5 08:25 Patient visited by Noa Muñoz RN. ja5 08:27 Patient visited by Noa Muñoz RN. ja5 08:46 Patient visited by Noa Muñoz RN. ja5 09:13 portable chest Returned. EDMS 09:25 Patient visited by Noa Muñoz RN. ja5 09:39 [facility] Payment Agreement was scanned into [employer] and attached to record. lg 10:28 No procedures done that require assistance. jc4 13:42 EKG-ADULT Returned. EDMS 17:33 ECG/EKG was scanned into [employer] and attached to record. kf3 17:34 Trend VS was scanned into [employer] and attached to record. kf3 17:34 T-Sheet-- Draft Copy was scanned into [employer] and attached to record. kf3 Administered Medications: 08:02 Drug: NS 0.9% 1000 ml [sodium chloride 0.9 % intravenous solution] Route: IV; Rate: 150 ja5 mL/hr; Site: left antecubital; 10:28 Follow up: IV Status: Infusion continued on transport jc4 08:02 Drug: morphine 4 mg [morphine 4 mg/mL intravenous cartridge (1 mL)] Route: IVP; Site: [facility] left antecubital; 08:27 Follow up: Pain 03/03 Adult ja5 08:45 Follow up: Pain 03/03 Adult 5 09:25 Drug: oxyCODONE 20 mg [oxycodone 5 mg tablet (4 tabs)] Route: PO; 5 10:28 Follow up: Pain 02/01 Adult jc4 Attachments: 17:34 Trend VS kf3 Order Results: Lab Order: Basic Metabolic Profile; SPEC'M 06/15/16 06:51 Test: GLUCOSE, FASTING; Value: 86; Range: 70-105; Units: MG/DL; Status: F Test: BLOOD UREA NITROGEN; Value: 17; Range: 7-18; Units: MG/DL; Status: F Test: CREATININE FOR GFR; Value: 0.62; Range: 0.70-1.30; Abnormal: Below low normal; Units: MG/DL; Status: F Test: GLOMERULAR FILTRATION RATE; Value: > 60.0; Range: >56; Status: F Test: SODIUM LEVEL; Value: 140; Range: 136-145; Units: MEQ/L; Status: F Test: POTASSIUM SERUM; Value: 3.9; Range: 3.5-5.1; Units: MEQ/L; Status: F Test: CHLORIDE LEVEL; Value: 104; Range: 98-107; Units: MEQ/L; Status: F Test: CARBON DIOXIDE LEVEL; Value: 30; Range: 21-32; Units: MEQ/L; Status: F Test: ANION GAP; Value: 6; Range: 8-16; Abnormal: Below low normal; Units: MEQ/L; Status: F Test: CALCIUM LEVEL; Value: 8.1; Range: 8.5-10.1; Abnormal: Below low normal; Units: MG/DL; Status: F Test Note: ; Units are mL/min/1.73 m2 Chronic Kidney Disease Staging per NKF: Stage I & II GFR >=60 Normal to Mildly Decreased Stage III GFR 30-59 Moderately Decreased Stage IV GFR 15-29 Severely Decreased Stage V GFR <15 Very Little GFR Left ESRD GFR <15 on PREHEMMER Lab Order: CBC with Diff; SPEC'M 06/15/16 06:51 Test: WHITE BLOOD COUNT; Value: 3.6; Range: 4.0-10.0; Abnormal: Below low normal; Units: K/mm3; Status: F Test: RED BLOOD COUNT; Value: 3.70; Range: 4.30-6.10; Abnormal: Below low normal; Units: M/mm3; Status: F Test: HEMOGLOBIN; Value: 11.6; Range: 14.0-18.0; Abnormal: Below low normal; Units: g/dl; Status: F Test: HEMATOCRIT; Value: 36.1; Range: 42.0-52.0; Abnormal: Below low normal; Units: %; Status: F Test: MEAN CORPUSCULAR VOLUME; Value: 97.6; Range: 80.0-96.0; Abnormal: Above high normal; Units: fl; Status: F Test: MEAN CORPUSCULAR HEMOGLOBIN; Value: 31.3; Range: 27.0-33.0; Units: pg; Status: F Test: MEAN CORPUSCULAR HGB CONC; Value: 32.1; Range: 32.0-36.5; Units: g/dl; Status: F Test: RED CELL DISTRIBUTION WIDTH; Value: 14.7; Range: 11.5-14.5; Abnormal: Above high normal; Units: %; Status: F Test: PLATELET COUNT, AUTOMATED; Value: 179; Range: 150-450; Units: k/mm3; Status: F Test: NEUTROPHILS %; Value: 65.2; Range: 36.0-66.0; Units: %; Status: F Test: LYMPH %; Value: 22.7; Range: 24.0-44.0; Abnormal: Below low normal; Units: %; Status: F Test: MONO %; Value: 6.7; Range: 0.0-5.0; Abnormal: Above high normal; Units: %; Status: F Test: EOS %; Value: 2.6; Range: 0.0-3.0; Units: %; Status: F Test: BASO %; Value: 1.3; Range: 0.0-1.0; Abnormal: Above high normal; Units: %; Status: F Test: LARGE UNSTAINED CELL %; Value: 1.5; Range: 0.0-4.0; Units: %; Status: F Test: NEUTROPHILS #; Value: 2.3; Range: 1.8-7.7; Units: K/mm3; Status: F Test: LYMPH #; Value: 0.9; Range: 1.5-4.5; Abnormal: Below low normal; Units: K/mm3; Status: F Test: MONO #; Value: 0.2; Range: 0.0-0.8; Units: K/mm3; Status: F Test: EOS #; Value: 0.1; Range: 0.0-0.50; Units: K/mm3; Status: F Test: BASO #; Value: 0.0; Range: 0.0-0.2; Units: K/mm3; Status: F Test: LARGE UNSTAINED CELL #; Value: 0.1; Range: 0.0-0.4; Units: K/mm3; Status: F Lab Order: Cardiac Injury Profile; [facility]' 06/15/16 06:51 Test: CPK CREATINE PHOSPHOKINASE; Value: 20; Range: 39-308; Abnormal: Below low normal; Units: U/L; Status: F Test: CK-MB VALUE MASS; Value: 1.0; Range: 0.0-3.6; Units: NG/ML; Status: F Test: MB/CK RELATIVE INDEX; Value: 5.00; Range: < OR =4; Abnormal: Above high normal; Status: F Test Note: ; DIAGNOSIS CRITERIA MMB ng/ml Relative Index (RI) NON-AMI < or = 5 N/A PIPER ZONE > 5 < or = 4 AMI > 5 > 4 Lab Order: Troponin; [facility]' 06/15/16 06:51 Test: TROPONIN I; Value: < 0.02; Range: < 0.10; Units: NG/ML; Status: F Test Note: ; Troponin I Reference Interval for [email or web address] LOCI: 99th Percentile= 0.00-0.045 ng/ml Risk Stratification: <= 0.10 ng/ml Decreased Risk for Adverse Clinical Events. 0.10-1.50 ng/ml Increased Risk for Adverse Clinical Events. Evaluation of additional criterion and/or repeat testing in 2-6 hours is suggested to rule out myocardial damage. >= 1.50 ng/ml Indicative of Myocardial Injury. Lab Order: Liver Profile; [facility]' 06/15/16 06:51 Test: AST/SGOT; Value: 9; Range: 15-37; Abnormal: Below low normal; Units: U/L; Status: F Test: ALT/SGPT; Value: 13; Range: 12-78; Units: U/L; Status: F Test: ALKALINE PHOSPHATASE; Value: 72; Range: 45-117; Units: U/L; Status: F Test: BILIRUBIN,TOTAL; Value: 0.5; Range: 0.2-1.0; Units: MG/DL; Status: F Test: BILIRUBIN,DIRECT; Value: 0.2; Range: 0.0-0.2; Units: MG/DL; Status: F Test: TOTAL PROTEIN; Value: 6.2; Range: 6.4-8.2; Abnormal: Below low normal; Units: GM/DL; Status: F Test: ALBUMIN; Value: 2.8; Range: 3.2-5.2; Abnormal: Below low normal; Units: GM/DL; Status: F Test: ALBUMIN/GLOBULIN RATIO; Value: 0.82; Range: 1.00-1.93; Abnormal: Below low normal; Status: F Lab Order: Lipase; SPEC'M 06/15/16 06:51 Test: LIPASE; Value: 76; Range: 73-393; Units: U/L; Status: F Radiology Order: EKG-ADULT Test: EKG-ADULT REASON FOR EXAMINATION: Chest Pain; Stationary ECG Study; [facility] - ED; ; Test Date: 2016-06-15; Pat Name: EDWAR STOKES Department:; Room: -; Gender: M Captain Waiter: [place]; : 1965 Requested By: BERE APARICIO; Order Number: [id number] Reading MD: Kathryn Berg; Measurements; Intervals Ledbetter; Rate: 54 P: 80; [place]: 191 QRS: 3; QRSD: 107 T: 53; QT: 432; QTc: 410; Interpretive Statements; SINUS BRADYCARDIA; LOW QRS VOLTAGE IN EXTREMITY LEADS; SIMILAR 06/10/16; Electronically Signed On 06-15-2016 13:14:00 EST by Kathryn Berg; Radiology Order: portable chest Test: portable chest REASON FOR EXAMINATION: Chest Pain; Portable chest x-ray: Single view.; ; History: Chest pain.; ; Comparison chest x-ray June 10 2016.; ; Findings: The lungs remain hyperinflated but free of infiltrate. Heart is not; enlarged. EKG monitoring electrodes overlie the chest. Pulmonary vasculature is; not increased.; ; Impression:; ; Hyperinflation, otherwise no acute disease.; ; ; Signed by; Steven Fontaine MD 06/15/2016 01:10 P; Outcome: 08:41 ER care complete, transfer ordered by Provider. br1 10:27 Discharge Assessment: Patient awake, alert and oriented x 3. No cognitive and/or jc4 functional deficits noted. Patient verbalized understanding of disposition instructions. patient administered narcotics - yes. Patient was admitted to the hospital or transferred to another facility. The following High Risk Discharge criteria are identified: None. Transferred to [facility]. by EMS ground [facility] ambulance report to accompanying personnel Thomas. Adriana, EMT-P & T. Vanna EMT-B, Transfer form completed. x-rays sent w/ patient. Condition: stable. No special radiology studies were completed. Admission hand-off: Other: Report has been called to Emir Morrow RN at [facility] . Property :Personal belongings accompany Pt. 10:29 Patient left the ED. jc4 Signatures: Dispatcher [employer] EDMS Madhavi Howard, Reg Reg lg Jaime Argueta, Reg Reg kf3 Juan Pablo Hitchcock MD MD br1 Lian Lisa, SLUBBER OPERATOR SLUBBER OPERATOR ar3 Shaila Mendez RN RN jc4 Alesha Agustin, SLUBBER OPERATOR SLUBBER OPERATOR Anna Howard,RN Deborah Bosch, SLUBBER OPERATOR SLUBBER OPERATOR Maria Eugenia Bermudez nb2 Noa Muñoz RN RN ja5 Chart Complete MTDD
--- NOTE | 2016-06-17 11:30 | EDDOCDS ---
Physician Documentation [facility] Name: Edwar Stokes Age: 51 yrs Sex: Male : 1965 Arrival Date: 06/15/2016 Time: 06:26 Bed 11 Private MD: Disposition: 06/15/16 08:41 Transfer ordered to [facility]. Diagnosis is Generalized abdominal pain. - Reason for transfer: Higher level of care. - Accepting physician is Dr. Delarosa. - Condition is Stable. - Problem is an ongoing problem. - Symptoms have worsened. Historical: - Allergies: No known drug Allergies; - Home Meds: 1. aspirin 81 mg Oral tab 1 tab once daily 2. azithromycin 250 mg Oral tab 1 tab once daily 3. Carafate 100 mg/mL Oral susp 10 mL 4 times per day 4. cyanocobalamin (vitamin B-12) 1,000 mcg oral tab every 3 days 5. multivitamin Oral tab 1 tab daily 6. omeprazole 40 mg Oral cpDR 1 cap 2 times per day 7. oxycodone 20 mg Oral tab 1 tab every 4 hours (Last dose: 06/15/2016 00:00) 8. senna 8.6 mg oral tab 1 tabs twice a day 9. vitamin D-3 1000 units daily 10. Oysco-500 500 mg calcium (1,250 mg) oral tab twice a day 11. zinc gluconate 50 mg oral tab daily 12. Tab-A-Christian oral tab twice a day - PMHx: c diff; chronic abdominal pain; esophageal strictures; GERD; opiate abuse; - PSHx: Appendectomy; repair right tendon repair; Hernia repair- Umbilical; Gastric Bypass; G-Tube Insertion; Cholecystectomy; - Social history: Smoking status: Patient uses tobacco products, light tobacco smoker. No barriers to communication noted, The patient speaks fluent Turkish. - Family history: Not pertinent. - : The pt / caregiver states he / she is not on anticoagulants. Home medication list is obtained from the patient. - Exposure Risk Screening:: None identified. Vital Signs: 06/15 06:35 BP 95 / 60 RA Supine (auto/reg); Pulse 60 MON; Resp 18 S; Temp 98.4(TE); Pulse Ox 99% cln on R/A; 06:46 Pulse 58 MON; Pulse Ox 99% ; mlc 06:46 BP 104 / 71 (auto/); mlc 07:01 BP 108 / 74 (auto/); jc4 07:01 Pulse 54 MON; Pulse Ox 99% ; jc4 07:16 BP 112 / 77 (auto/); jc4 07:16 Pulse 58 MON; Pulse Ox 99% ; jc4 07:24 BP 108 / 73 (auto/); jc4 07:24 Pulse 56 MON; Pulse Ox 99% ; jc4 07:26 BP 108 / 73; Pulse 56; Resp 14; Temp 96.7(O); Pulse Ox 98% on R/A; Pain 10/10; ja5 07:31 BP 103 / 71 (auto/); jc4 07:31 Pulse 56 MON; Pulse Ox 99% ; jc4 07:46 BP 107 / 67 (auto/); jc4 07:46 Pulse 52 MON; Pulse Ox 99% ; jc4 08:00 Weight 56.25 kg / 124.01 lbs; Height 5 ft. 11 in. (180.34 cm); jc4 08:01 BP 98 / 68 (auto/); jc4 08:01 Pulse 54 MON; Pulse Ox 98% ; jc4 08:16 BP 114 / 76 (auto/); jc4 08:16 Pulse 56 MON; Pulse Ox 98% ; jc4 08:27 Pain 10/10; ja5 08:31 BP 104 / 70 (auto/); jc4 08:31 Pulse 50 MON; Pulse Ox 99% ; jc4 08:45 Pain 10/10; ja5 08:46 BP 105 / 71 (auto/); jc4 08:46 Pulse 54 MON; Pulse Ox 98% ; jc4 09:01 BP 98 / 65 (auto/); jc4 09:01 Pulse 52 MON; Pulse Ox 99% ; jc4 09:16 BP 98 / 66 (auto/); jc4 09:16 Pulse 50 MON; Pulse Ox 99% ; jc4 09:31 BP 98 / 70 (auto/); jc4 09:31 Pulse 50 MON; Pulse Ox 99% ; jc4 09:46 BP 101 / 72 (auto/); jc4 09:46 Pulse 50 MON; Pulse Ox 99% ; jc4 10:01 BP 96 / 63 (auto/); jc4 10:01 Pulse 50 MON; Pulse Ox 99% ; jc4 10:28 Pain 9/10; jc4 10:29 BP 105 / 75; Pulse 58; Resp 20; Temp 97.8(O); Pulse Ox 99% on R/A; Pain 9/10; jc4 08:00 Body Mass Index 17.29 (56.25 kg, 180.34 cm) jc4 MDM: 06:36 ECG WITH READING ER PHYS+CARDIAG ordered. EDMS 07:39 Compressor Technician/Pulse Ox/q 30 min VS ordered. br1 07:39 IV Saline Lock ordered. br1 07:39 Rhythm Strip to chart ordered. br1 07:39 Undress patient appropriately for examination ordered. br1 07:39 NS 0.9% 1000 ml IV at 150 mL/hr continuous ordered. br1 07:40 morphine 4 mg IVP once ordered. br1 07:40 portable chest Ordered. EDMS 07:40 Basic Metabolic Profile Ordered. EDMS 07:40 CBC with Diff Ordered. EDMS 07:40 Cardiac Injury Profile Ordered. EDMS 07:40 Troponin Ordered. EDMS 07:41 Liver Profile Ordered. EDMS 07:41 Lipase Ordered. EDMS 07:57 CBC with Diff Reviewed. br1 08:10 Basic Metabolic Profile Reviewed. br1 08:10 Cardiac Injury Profile Reviewed. br1 08:10 Liver Profile Reviewed. br1 08:10 Troponin Reviewed. br1 08:10 Lipase Reviewed. br1 08:55 Financial registration complete. lg 08:59 oxyCODONE 20 mg PO once ordered. br1 09:39 [facility] Payment Agreement was scanned into [employer] and attached to record. lg 17:33 ECG/EKG was scanned into [employer] and attached to record. kf3 17:34 Trend VS was scanned into [employer] and attached to record. kf3 17:34 T-Sheet-- Draft Copy was scanned into [employer] and attached to record. kf3 Administered Medications: 08:02 Drug: NS 0.9% 1000 ml [sodium chloride 0.9 % intravenous solution] Route: IV; Rate: 150 ja5 mL/hr; Site: left antecubital; 10:28 Follow up: IV Status: Infusion continued on transport jc4 08:02 Drug: morphine 4 mg [morphine 4 mg/mL intravenous cartridge (1 mL)] Route: IVP; Site: ja5 left antecubital; 08:27 Follow up: Pain 10/10 Adult ja5 08:45 Follow up: Pain 10/10 Adult ja5 09:25 Drug: oxyCODONE 20 mg [oxycodone 5 mg tablet (4 tabs)] Route: PO; ja5 10:28 Follow up: Pain 02/01 Adult jc4 Signatures: Dispatcher [employer] EDMS Anita Madhavi, Reg Reg lg Jaime Argueta, Reg Reg kf3 Juan Pablo Hitchcock MD MD br1 Shiala Mendez RN RN jc4 Anna Mustafa RN RN mlc Anderson, Jessica RN ja5 The chart was reviewed and I authenticate all verbal orders and agree with the evaluation and treatment provided.Attachments: 09:39 [facility] Payment Agreement lg 17:33 ECG/EKG kf3 17:34 T-Sheet-- Draft Copy kf3 Chart Complete MTDD
== END 2016-06-15 10:29 | disposition short-term general hospital (02) ==
LOC: M ED 06:26
DX: R10.84 Generalized abdominal pain (principal); K21.9 Gastro-esophageal reflux disease without esophagitis; F17.210 Nicotine dependence, cigarettes, uncomplicated; Z98.84 Bariatric surgery status; Z79.82 Long term (current) use of aspirin; Z79.891 Long term (current) use of opiate analgesic; Z79.899 Other long term (current) drug therapy

== ENCOUNTER 2016-06-23 11:03 | Emergency (ER) | payer OTHER, MEDICARE ==
[2016-06-23] MEDS ORDERED: KETOROLAC 30 MG/ML VIAL (J1885) As Ordered ONE (13:27)
[2016-06-23] MEDS ORDERED: PROMETHAZINE INJ 25 MG/ML VIAL (J2550) As Ordered ONE (13:27)
--- NOTE | 2016-06-23 14:29 | REP ---
ABDOMINAL SERIES: THREE VIEWS. HISTORY: Feeding tube. COMPARISON: Chest x-ray, June 15, 2016. FINDINGS: Upright chest radiograph shows no evidence of infiltrate or free subdiaphragmatic air. Heart is not enlarged. Lung hernandez are clear. Supine and erect views of the abdomen demonstrate clips in the right upper quadrant, anastomotic sutures in the left upper quadrant, and L5-S1 lumbar spine fusion hardware. There is a clip in the right pelvis as well. Sutures are seen in the left midabdomen. Also noted is an intrarenal calculus projecting in the lower pole of the right kidney and measuring 8 mm in greatest diameter. There are air-filled loops of large and small bowel throughout the abdomen, question mild ileus. There is a curvilinear 1.9 cm metallic density projecting in the epigastrium which is believed to be related to the gastrostomy tube cannula. IMPRESSION: No evidence of free air. Mild ileus pattern. Intrarenal nephrolithiasis on the right. Postoperative changes. G-tube cannula visible. Similar to findings seen by CT on June 09, 2016. ADDENDUM: Additional history has been provided by Mr. Cervantes that the patient relates that he believes he has "sheared-off" a piece of his G-tube and that the G-tube site is closed and no longer intubated with a catheter. The 18 mm metallic density presenting in the epigastrium appears to be part of the G-tube intubation cannula seen on CT study from 06/09/2016. This may be within the bowel lumen given the history provided above. Signed by Steven Fontaine MD 06/23/2016 03:21 P
[2016-06-23] MEDS ORDERED: fentaNYL 100 MCG/2 ML INJECTION (J3010) As Ordered ONE ×2 (14:30→15:56)
[2016-06-23] MEDS ORDERED: ISOVUE-300 61% 50ML VIAL (Q9967) As Ordered ONE (14:43)
[2016-06-23] MEDS ORDERED: SODIUM BICARBONATE 8.4% INJ 50MEQ 50 ML VIAL As Ordered ONE (14:43)
--- NOTE | 2016-06-23 15:06 | REP ---
CT STUDY OF THE ABDOMEN AND PELVIS WITHOUT IV OR ORAL CONTRAST: HISTORY: Question foreign body, cut feeding tube. FINDINGS: The bowel gas pattern is unremarkable on digital undercoat sprayer radiograph. Just beneath the tract for the patient's feeding gastrostomy tube, there is a 4.9 cm linear metallic tubular structure projecting within the gastric lumen, consistent with a sheared off piece of the patient's gastrostomy feeding tube. There is a small quantity of air surrounding it which may be in the retention balloon. The retention balloon appears to be deflated. Clips and sutures are noted as before. There are two intrarenal calculi in the right renal collecting system the largest of which is in the lower pole as seen on June 09, 2016. This measures 8 mm in greatest diameter. There is no evidence of free intraperitoneal air. Lung window settings demonstrate an area of chronic atelectasis and scarring in the left lower lobe. This is unchanged. IMPRESSION:There is a 4.9 cm segment of gastrostomy tube catheter within the gastric lumen. No evidence of free air. The retention balloon appears to contain a small quantity of air but otherwise in a deflated state. Signed by Steven Fontaine MD 06/23/2016 03:22 P
--- NOTE | 2016-06-23 17:17 | EDDOCDS ---
Physician Documentation [facility] Name: Edwar Stokes Age: 51 yrs Sex: Male : 1965 Arrival Date: 06/23/2016 Time: 11:03 Bed 19 Private MD: Cedric Marrero A. Disposition: 06/23/16 16:59 Discharged to Home/Self Care. Impression: Feeding difficulties, Chronic pain syndrome. - Condition is Stable. - Discharge Instructions: Chronic Pain, Gastrostomy Tube Replacement. - Medication Reconciliation, Local Pharmacy Hours form. - Follow up: Private Physician; When: DR Delarosa to replace g tube will call for out patient time; Reason: Further diagnostic work-up, Continuance of care. - Problem is an ongoing problem. - Symptoms are unchanged. Historical: - Allergies: no known allergies; - Home Meds: 1. aspirin 81 mg Oral tab 1 tab once daily 2. Carafate 100 mg/mL Oral susp 10 mL 4 times per day 3. cyanocobalamin (vitamin B-12) 1,000 mcg oral tab every 3 days 4. multivitamin Oral tab 1 tab daily 5. omeprazole 40 mg Oral cpDR 1 cap 2 times per day 6. oxycodone 20 mg Oral tab 1 tab every 4 hours 7. Oysco-500 500 mg calcium (1,250 mg) oral tab twice a day 8. senna 8.6 mg oral tab 1 tabs twice a day 9. Tab-A-Christian oral tab twice a day 10. vitamin D-3 1000 units daily 11. zinc gluconate 50 mg oral tab daily - PMHx: c diff; chronic abdominal pain; esophageal strictures; GERD; opiate abuse; opiate dependency; - PSHx: Gastric Bypass; back surgery; Cholecystectomy; right arm tendon repair; Appendectomy; - Social history: Smoking status: Patient uses tobacco products, light tobacco smoker. No barriers to communication noted, The patient speaks fluent Icelandic. - Family history: Not pertinent. - : The pt / caregiver states he / she is not on anticoagulants. Home medication list is obtained from the patient, Personally import data. - Exposure Risk Screening:: None identified. Vital Signs: 06/23 11:05 BP 103 / 69; Pulse 83; Resp 18 S; Temp 96.6(O); Pulse Ox 100% on R/A; Weight 56.25 kg / dd6 124.01 lbs (R); Height 5 ft. 11 in. (180.34 cm) (R); 11:27 BP 102 / 66; Pulse 77; Resp 18; Temp 96.0(O); Pulse Ox 98% on R/A; lr2 15:11 BP 96 / 67; Pulse 56; Resp 17; Temp 99.7(TE); Pulse Ox 100% on R/A; lr2 17:13 BP 100 / 60; Pulse 70; Resp 18; Temp 96.8(O); Pulse Ox 100% on R/A; Pain 4/10; jmb 11:05 Body Mass Index 17.29 (56.25 kg, 180.34 cm) dd6 MDM: 12:27 Abdomen, Flat\E\Upright,PA Chest Ordered. EDMS 13:22 ketorolac 60 mg IM once ordered. ke 13:23 Promethazine 25 mg IM once ordered. ke 13:23 CT ABD & PELVIS: No Contrast Ordered. EDMS 14:10 IV Saline Lock ordered. ke 14:10 NS 0.9% 1000 ml IV at 250 mL/hr continuous ordered. ke 14:11 fentaNYL (PF) 50 mcg IVP once ordered. ke [facility]:12 [facility] ordered. ke 14:17 [facility] Order complete. jlf 15:47 fentaNYL (PF) 50 mcg IVP once ordered. ke 16:55 Financial registration complete. zo Administered Medications: 13:33 Drug: ketorolac 60 mg [ketorolac 30 mg/mL (1 mL) injection solution (2 mL)] Route: IM; jf3 Site: left gluteus; 14:10 Follow up: Response: Pain is unchanged, physician notified jf3 13:35 Drug: Promethazine 25 mg [promethazine 25 mg/mL injection solution (1 mL)] Route: IM; jf3 Site: right gluteus; 14:11 Follow up: Response: Nausea is decreased jf3 14:41 Drug: NS 0.9% 1000 ml [sodium chloride 0.9 % injection solution] Route: IV; Rate: 250 jf3 mL/hr; Site: right antecubital; 14:42 Drug: fentaNYL (PF) 50 mcg [fentanyl (PF) 50 mcg/mL injection solution (1 mL)] Route: jf3 IVP; Site: right antecubital; 15:21 Follow up: Response: Pain is unchanged, physician notified jf3 16:00 Drug: fentaNYL (PF) 50 mcg [fentanyl (PF) 50 mcg/mL injection solution (1 mL)] Route: jf3 IVP; Site: right forearm; Signatures: Dispatcher [employer] EDSonal Kovacs, RN RN Parvez Eric, COGNOS BI ADMINISTRATOR COGNOS BI ADMINISTRATOR Herlinda Salomon JoshuaRN RN Cathryn Lebron, ENGINE WATCHMAN ENGINE WATCHMAN jlf Matt Nickerson,KRISTOFER RN jf3 The chart was reviewed and I authenticate all verbal orders and agree with the evaluation and treatment provided.Corrections: (The following items were deleted from the chart) 14:41 14:19 Fluoro Guidance ordered. EDMS EDMS 14:43 14:41 FLUORO GUID FOR NEEDLE PLACEMT ordered. EDMS EDMS MTDD
--- NOTE | 2016-06-23 17:17 | EDDOCDS ---
Nurse's Notes [facility] Name: Edwar Stokes Age: 51 yrs Sex: Male : 1965 Arrival Date: 06/23/2016 Time: 11:03 Bed 19 Private MD: Cedric Marrero A. Diagnosis: Feeding difficulties;Chronic pain syndrome Presentation: 06/23 11:10 Presenting complaint: Patient states: Pt states he fell a couple of hours ago and cut dls his feeding tube part of it is still in his stomach c/o abdominal pain. Adult Sepsis Screening: The patient does not have new or worsening altered mentation. Patient's respiratory rate is less than 22. Systolic blood pressure is greater than 100. Patient has a qSOFA score of 0- Negative Sepsis Screen. Suicide/Homicide risk assessment- the patient denies having any suicidal and/or homicidal ideations and does not present with any other emotional, behavioral or mental health complaints. Status: Patient is not a conference service coordinator or dependent. Transition of care: patient was not received from another setting of care. 11:10 Acuity: ANA Level 3 dls 11:10 Method Of Arrival: Walkin/Carried/Asstd dls Triage Assessment: 11:14 General: Appears malnourished, Behavior is cooperative. Pain: Pain currently is 10 out dls of 10 on a pain scale. HIV screening NA for this visit Offered previously. Historical: - Allergies: no known allergies; - Home Meds: 1. aspirin 81 mg Oral tab 1 tab once daily 2. Carafate 100 mg/mL Oral susp 10 mL 4 times per day 3. cyanocobalamin (vitamin B-12) 1,000 mcg oral tab every 3 days 4. multivitamin Oral tab 1 tab daily 5. omeprazole 40 mg Oral cpDR 1 cap 2 times per day 6. oxycodone 20 mg Oral tab 1 tab every 4 hours 7. Oysco-500 500 mg calcium (1,250 mg) oral tab twice a day 8. senna 8.6 mg oral tab 1 tabs twice a day 9. Tab-A-Christian oral tab twice a day 10. vitamin D-3 1000 units daily 11. zinc gluconate 50 mg oral tab daily - PMHx: c diff; chronic abdominal pain; esophageal strictures; GERD; opiate abuse; opiate dependency; - PSHx: Gastric Bypass; back surgery; Cholecystectomy; right arm tendon repair; Appendectomy; - Social history: Smoking status: Patient uses tobacco products, light tobacco smoker. No barriers to communication noted, The patient speaks fluent Mongolian. - Family history: Not pertinent. - : The pt / caregiver states he / she is not on anticoagulants. Home medication list is obtained from the patient, [employer] import data. - Exposure Risk Screening:: None identified. Screenin:39 Screening information is obtained from the patient. Fall risk: No risks identified. jf3 Assistance ADL's: requires no assistance with activities of daily living. Abuse/DV Screen: The patient / caregiver reports he/she is: not in a situation that causes fear, pain or injury. Nutritional screening: No deficits noted. Advance Directives: Currently, there is no health care proxy. There is no active DNR order. home support is adequate. Assessment: 11:31 General: Appears in no apparent distress, uncomfortable, Behavior is cooperative. Pain: jf3 Location: abdomen Pain currently is 10 out of 10 on a pain scale. Neurological: Level of Consciousness is awake, alert, Oriented to person, place, time. Cardiovascular: Capillary refill < 3 seconds Heart tones S1 S2 present Chest pain is denied. Respiratory: Airway is patent Respiratory effort is even, unlabored, Respiratory pattern is regular, symmetrical, Breath sounds are clear bilaterally. Denies shortness of breath. GI: Abdomen is non- distended insertion site noted for feeding tube, no tube in place at this time. Pt states tube was cut during a fall this AM an part of the tube remains in his abdomen. Unable to visualize any remaining tube in abdomen Bowel sounds present X 4 quads. Reports diarrhea, nausea, vomiting. Derm: Skin is pale. 12:30 General: Appears in no apparent distress, Behavior is cooperative, Pt resting supine on jf3 stretcher watching TV. respirations easy and unlabored. Will continue to monitor. 13:30 General: Appears in no apparent distress, Behavior is cooperative, Pt resting supine on jf3 stretcher. respirations easy and unlabored. Call light in reach. 14:40 General: Appears in no apparent distress, Behavior is cooperative. General: Pt resting jf3 supine on stretcher. Respirations easy and unlabored. Pt to interventional radiology at this time. Pain: Pain currently is 10 out of 10 on a pain scale. 15:15 General: pt returned from IR. Pt states pain is unchanged and feels like pain is jf3 getting worse, stated pain was 10/10 previously. Parvez Cervantes NP aware. 16:00 General: Appears in no apparent distress, Behavior is cooperative. Pain: Pain currently jf3 is 10 out of 10 on a pain scale. 16:00 Neurological: Level of Consciousness is awake, alert, Oriented to person, place, time. jf3 Cardiovascular: Capillary refill. Respiratory: Airway is patent Respiratory effort is even, unlabored, Respiratory pattern is regular, symmetrical. 17:13 General: Patient instructed on discharge instructions. Patient asked if there were any b questions regarding discharge, patient stated no. IV discontinued per hospital policy. Patient signed discharged instructions. Cab voucher given to patient. Patient discharged in stable condition. . Vital Signs: 11:05 BP 103 / 69; Pulse 83; Resp 18 S; Temp 96.6(O); Pulse Ox 100% on R/A; Weight 56.25 kg dd6 (R); Height 5 ft. 11 in. (180.34 cm) (R); 11:27 BP 102 / 66; Pulse 77; Resp 18; Temp 96.0(O); Pulse Ox 98% on R/A; lr2 15:11 BP 96 / 67; Pulse 56; Resp 17; Temp 99.7(TE); Pulse Ox 100% on R/A; lr2 17:13 BP 100 / 60; Pulse 70; Resp 18; Temp 96.8(O); Pulse Ox 100% on R/A; Pain 4/10; jmb 11:05 Body Mass Index 17.29 (56.25 kg, 180.34 cm) dd6 Vitals: 11:05 Log In Time: June 23, 2016 at 11:03. dd6 ED Course: 11:04 Patient visited by David Lamb PCA. dd6 11:04 Cedric Marrero is Private Physician. dd6 11:04 Patient moved to Waiting dd6 11:06 Patient moved to Pre RCE dd6 11:11 Triage Initiated dls 11:15 Patient moved to 19 dls 11:31 The patient / caregiver is instructed regarding the plan of care and ED course. jf3 11:33 Patient visited by Matt Nickerson RN. jf3 12:19 Parvez Cervantes FNP is PHCP. ke 12:20 Patient visited by Parvez Cervantes FNP. ke 12:20 Patient visited by Parvez Cervantes FNP. ke 12:50 Patient visited by Matt Nickerson RN. jf3 13:21 Patient visited by Parvez Cervantes FNP. ke 13:39 Patient visited by Matt Nickerson RN. jf3 14:10 Patient visited by Parvez Cervantes FNP. ke 14:45 Patient moved to Radiology [facility] 14:49 Patient visited by Matt Nickerson RN. jf3 14:49 Inserted saline lock: 20 gauge in right forearm The patient tolerated the procedure jf3 well. No procedures done that require assistance. 14:51 Matt Nickerson RN is Primary Nurse. jf3 14:55 Abdomen, Flat\\E\\Upright,PA Chest Returned. EDMS 15:13 Patient moved to 19 es5 15:18 Patient visited by Parvez Cervantes FNP. ke 15:21 Patient visited by Matt Nickerson RN. jf3 15:37 CT ABD & PELVIS: No Contrast Returned. EDMS 15:47 Patient visited by Parvez Cervantes FNP. ke 16:03 Patient visited by Matt Nickerson RN. jf3 16:31 Patient visited by Parvez Cervantes FNP. ke 16:58 Patient visited by Parvez Cervantes FNP. ke 17:13 Discontinued lock intact, bleeding controlled, pressure dressing applied, No jmb redness/swelling at site. Administered Medications: 13:33 Drug: ketorolac 60 mg [ketorolac 30 mg/mL (1 mL) injection solution (2 mL)] Route: IM; jf3 Site: left gluteus; 14:10 Follow up: Response: Pain is unchanged, physician notified jf3 13:35 Drug: Promethazine 25 mg [promethazine 25 mg/mL injection solution (1 mL)] Route: IM; jf3 Site: right gluteus; 14:11 Follow up: Response: Nausea is decreased jf3 14:41 Drug: NS 0.9% 1000 ml [sodium chloride 0.9 % injection solution] Route: IV; Rate: 250 jf3 mL/hr; Site: right antecubital; 14:42 Drug: fentaNYL (PF) 50 mcg [fentanyl (PF) 50 mcg/mL injection solution (1 mL)] Route: jf3 IVP; Site: right antecubital; 15:21 Follow up: Response: Pain is unchanged, physician notified jf3 16:00 Drug: fentaNYL (PF) 50 mcg [fentanyl (PF) 50 mcg/mL injection solution (1 mL)] Route: jf3 IVP; Site: right forearm; Order Results: Radiology Order: Abdomen, Flat\\E\\Upright,PA Chest Test: Abdomen, Flat\\E\\Upright,PA Chest REASON FOR EXAMINATION: fb.feeding tube; ABDOMINAL SERIES: THREE VIEWS.; ; HISTORY: Feeding tube.; ; COMPARISON: Chest x-ray, June 15, 2016.; ; FINDINGS: Upright chest radiograph shows no evidence of infiltrate or free; subdiaphragmatic air. Heart is not enlarged. Lung hernandez are clear.; ; Supine and erect views of the abdomen demonstrate clips in the right upper; quadrant, anastomotic sutures in the left upper quadrant, and L5-S1 lumbar spine; fusion hardware. There is a clip in the right pelvis as well. Sutures are seen; in the left midabdomen. Also noted is an intrarenal calculus projecting in the; lower pole of the right kidney and measuring 8 mm in greatest diameter. There; are air-filled loops of large and small bowel throughout the abdomen, question; mild ileus. There is a curvilinear 1.9 cm metallic density projecting in the; epigastrium which is believed to be related to the gastrostomy tube cannula.; ; IMPRESSION: No evidence of free air. Mild ileus pattern. Intrarenal; nephrolithiasis on the right. Postoperative changes. G-tube cannula visible.; Similar to findings seen by CT on June 09, 2016.; ; ADDENDUM:; ; Additional history has been provided by Mr. Cervantes that the patient relates that; he believes he has "sheared-off" a piece of his G-tube and that the G-tube site; is closed and no longer intubated with a catheter.; ; The 18 mm metallic density presenting in the epigastrium appears to be part of; the G-tube intubation cannula seen on CT study from 06/09/2016. This may be; within the bowel lumen given the history provided above.; ; ; ; ; Signed by; Steven Fontaine MD 06/23/2016 03:21 P; Radiology Order: CT ABD & PELVIS: No Contrast Test: CT ABD & PELVIS: No Contrast REASON FOR EXAMINATION: questionable fb,cut feeding tube; CT STUDY OF THE ABDOMEN AND PELVIS WITHOUT IV OR ORAL CONTRAST:; ; HISTORY: Question foreign body, cut feeding tube.; ; FINDINGS: The bowel gas pattern is unremarkable on digital power operator radiograph.; ; Just beneath the tract for the patient's feeding gastrostomy tube, there is a 4.9; cm linear metallic tubular structure projecting within the gastric lumen,; consistent with a sheared off piece of the patient's gastrostomy feeding tube.; There is a small quantity of air surrounding it which may be in the retention; balloon. The retention balloon appears to be deflated. Clips and sutures are; noted as before. There are two intrarenal calculi in the right renal collecting; system the largest of which is in the lower pole as seen on June 09, 2016.; This measures 8 mm in greatest diameter. There is no evidence of free; intraperitoneal air. Lung window settings demonstrate an area of chronic; atelectasis and scarring in the left lower lobe. This is unchanged.; ; IMPRESSION:There is a 4.9 cm segment of gastrostomy tube catheter within the; gastric lumen. No evidence of free air. The retention balloon appears to; contain a small quantity of air but otherwise in a deflated state.; ; ; Signed by; Steven Fontaine MD 06/23/2016 03:22 P; Outcome: 16:59 Discharge ordered by Provider. ke 17:13 Discharge Assessment: Patient awake, alert and oriented x 3. No cognitive and/or jmb functional deficits noted. Patient verbalized understanding of disposition instructions. Patient awake and alert. obeys commands, Oriented to person, place and time. Patient verbalized understanding of disposition instructions. Patient has no functional deficits. patient administered narcotics - no. The following High Risk Discharge criteria are identified: None. Discharged to home ambulatory. Condition: stable. Discharge instructions given to patient, Instructed on discharge instructions, follow up and referral plans. Demonstrated understanding of instructions, Pt was receptive of discharge instructions/ teaching. No special radiology studies were completed. Property sent home with patient. 17:16 CT Study completed. b 17:16 Patient left the ED. jmb Signatures: Dispatcher [facility] Medical CenterSonal Kovacs RN RN dls Elsner, Karl, NETWORK SOLUTIONS ARCHITECT NETWORK SOLUTIONS ARCHITECT David Mckeon, COOK MAYONNAISE COOK MAYONNAISE dd6 Raj, Sujey es5 Aris Middleton,RN RN brauliob Cathryn Sheridan, COOK MAYONNAISE COOK MAYONNAISE jlf Matt Nickerson,KRISTOFER RN jf3 Nikki Orozco2 MTDD
--- NOTE | 2016-06-25 18:17 | EDDOCDS ---
Nurse's Notes [facility] Name: Edwar Stokes Age: 51 yrs Sex: Male : 1965 Arrival Date: 06/23/2016 Time: 11:03 Bed 19 Private MD: Cedric Marrero A. Diagnosis: Feeding difficulties;Chronic pain syndrome Presentation: 06/23 11:10 Presenting complaint: Patient states: Pt states he fell a couple of hours ago and cut dls his feeding tube part of it is still in his stomach c/o abdominal pain. Adult Sepsis Screening: The patient does not have new or worsening altered mentation. Patient's respiratory rate is less than 22. Systolic blood pressure is greater than 100. Patient has a qSOFA score of 0- Negative Sepsis Screen. Suicide/Homicide risk assessment- the patient denies having any suicidal and/or homicidal ideations and does not present with any other emotional, behavioral or mental health complaints. 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 Transition of care: patient was not received from another setting of care. 11:10 Acuity: ANA Level 3 dls 11:10 Method Of Arrival: Walkin/Carried/Asstd dls Triage Assessment: 11:14 General: Appears malnourished, Behavior is cooperative. Pain: Pain currently is 10 out dls of 10 on a pain scale. HIV screening NA for this visit Offered previously. Historical: - Allergies: no known allergies; - Home Meds: 1. aspirin 81 mg Oral tab 1 tab once daily 2. Carafate 100 mg/mL Oral susp 10 mL 4 times per day 3. cyanocobalamin (vitamin B-12) 1,000 mcg oral tab every 3 days 4. multivitamin Oral tab 1 tab daily 5. omeprazole 40 mg Oral cpDR 1 cap 2 times per day 6. oxycodone 20 mg Oral tab 1 tab every 4 hours 7. Oysco-500 500 mg calcium (1,250 mg) oral tab twice a day 8. senna 8.6 mg oral tab 1 tabs twice a day 9. Tab-A-Christian oral tab twice a day 10. vitamin D-3 1000 units daily 11. zinc gluconate 50 mg oral tab daily - PMHx: c diff; chronic abdominal pain; esophageal strictures; GERD; opiate abuse; opiate dependency; - PSHx: Gastric Bypass; back surgery; Cholecystectomy; right arm tendon repair; Appendectomy; - Social history: Smoking status: Patient uses tobacco products, light tobacco smoker. No barriers to communication noted, The patient speaks fluent Pakistani. - Family history: Not pertinent. - : The pt / caregiver states he / she is not on anticoagulants. Home medication list is obtained from the patient, [employer] import data. - Exposure Risk Screening:: None identified. Screenin:39 Screening information is obtained from the patient. Fall risk: No risks identified. jf3 Assistance ADL's: requires no assistance with activities of daily living. Abuse/DV Screen: The patient / caregiver reports he/she is: not in a situation that causes fear, pain or injury. Nutritional screening: No deficits noted. Advance Directives: Currently, there is no health care proxy. There is no active DNR order. home support is adequate. Assessment: 11:31 General: Appears in no apparent distress, uncomfortable, Behavior is cooperative. Pain: jf3 Location: abdomen Pain currently is 10 out of 10 on a pain scale. Neurological: Level of Consciousness is awake, alert, Oriented to person, place, time. Cardiovascular: Capillary refill < 3 seconds Heart tones S1 S2 present Chest pain is denied. Respiratory: Airway is patent Respiratory effort is even, unlabored, Respiratory pattern is regular, symmetrical, Breath sounds are clear bilaterally. Denies shortness of breath. GI: Abdomen is non- distended insertion site noted for feeding tube, no tube in place at this time. Pt states tube was cut during a fall this AM an part of the tube remains in his abdomen. Unable to visualize any remaining tube in abdomen Bowel sounds present X 4 quads. Reports diarrhea, nausea, vomiting. Derm: Skin is pale. 12:30 General: Appears in no apparent distress, Behavior is cooperative, Pt resting supine on jf3 stretcher watching TV. respirations easy and unlabored. Will continue to monitor. 13:30 General: Appears in no apparent distress, Behavior is cooperative, Pt resting supine on jf3 stretcher. respirations easy and unlabored. Call light in reach. 14:40 General: Appears in no apparent distress, Behavior is cooperative. General: Pt resting jf3 supine on stretcher. Respirations easy and unlabored. Pt to interventional radiology at this time. Pain: Pain currently is 10 out of 10 on a pain scale. 15:15 General: pt returned from IR. Pt states pain is unchanged and feels like pain is jf3 getting worse, stated pain was 10/10 previously. Parvez Cervantes NP aware. 16:00 General: Appears in no apparent distress, Behavior is cooperative. Pain: Pain currently jf3 is 10 out of 10 on a pain scale. 16:00 Neurological: Level of Consciousness is awake, alert, Oriented to person, place, time. jf3 Cardiovascular: Capillary refill. Respiratory: Airway is patent Respiratory effort is even, unlabored, Respiratory pattern is regular, symmetrical. 17:13 General: Patient instructed on discharge instructions. Patient asked if there were any b questions regarding discharge, patient stated no. IV discontinued per hospital policy. Patient signed discharged instructions. Cab voucher given to patient. Patient discharged in stable condition. . Vital Signs: 11:05 BP 103 / 69; Pulse 83; Resp 18 S; Temp 96.6(O); Pulse Ox 100% on R/A; Weight 56.25 kg dd6 (R); Height 5 ft. 11 in. (180.34 cm) (R); 11:27 BP 102 / 66; Pulse 77; Resp 18; Temp 96.0(O); Pulse Ox 98% on R/A; lr2 15:11 BP 96 / 67; Pulse 56; Resp 17; Temp 99.7(TE); Pulse Ox 100% on R/A; lr2 17:13 BP 100 / 60; Pulse 70; Resp 18; Temp 96.8(O); Pulse Ox 100% on R/A; Pain 4/10; jmb 11:05 Body Mass Index 17.29 (56.25 kg, 180.34 cm) dd6 Vitals: 11:05 Log In Time: June 23, 2016 at 11:03. dd6 ED Course: 11:04 Patient visited by David Lamb PCA. dd6 11:04 Cedric Marrero is Private Physician. dd6 11:04 Patient moved to Waiting dd6 11:06 Patient moved to Pre RCE dd6 11:11 Triage Initiated dls 11:15 Patient moved to 19 dls 11:31 The patient / caregiver is instructed regarding the plan of care and ED course. jf3 11:33 Patient visited by Matt Nickerson RN. jf3 12:19 Parvez Cervantes FNP is PHCP. ke 12:20 Patient visited by Parvez Cervantes FNP. ke 12:20 Patient visited by Parvez Cervantes FNP. ke 12:50 Patient visited by Matt Nickerson RN. jf3 13:21 Patient visited by Parvez Cervantes FNP. ke 13:39 Patient visited by Matt Nickerson RN. jf3 14:10 Patient visited by Parvez Cervantes FNP. ke 14:45 Patient moved to Radiology [facility] 14:49 Patient visited by Matt Nickerson RN. jf3 14:49 Inserted saline lock: 20 gauge in right forearm The patient tolerated the procedure jf3 well. No procedures done that require assistance. 14:51 Matt Nickerson RN is Primary Nurse. jf3 14:55 Abdomen, Flat\\E\\Upright,PA Chest Returned. EDMS 15:13 Patient moved to 19 es5 15:18 Patient visited by Parvez Cervantes FNP. ke 15:21 Patient visited by Matt Nickerson RN. jf3 15:37 CT ABD & PELVIS: No Contrast Returned. EDMS 15:47 Patient visited by Parvez Cervantes FNP. ke 16:03 Patient visited by Matt Nickerson RN. jf3 16:31 Patient visited by Parvez Cervantes FNP. ke 16:58 Patient visited by Parvez Cervantes FNP. ke 17:13 Discontinued lock intact, bleeding controlled, pressure dressing applied, No jmb redness/swelling at site. 18:02 [facility] Payment Agreement was scanned into [employer] and attached to record. zo 06/24 11:37 T-Sheet-- Draft Copy was scanned into [employer] and attached to record. gb Administered Medications: 06/23 13:33 Drug: ketorolac 60 mg [ketorolac 30 mg/mL (1 mL) injection solution (2 mL)] Route: IM; jf3 Site: left gluteus; 14:10 Follow up: Response: Pain is unchanged, physician notified jf3 13:35 Drug: Promethazine 25 mg [promethazine 25 mg/mL injection solution (1 mL)] Route: IM; jf3 Site: right gluteus; 14:11 Follow up: Response: Nausea is decreased jf3 14:41 Drug: NS 0.9% 1000 ml [sodium chloride 0.9 % injection solution] Route: IV; Rate: 250 jf3 mL/hr; Site: right antecubital; 14:42 Drug: fentaNYL (PF) 50 mcg [fentanyl (PF) 50 mcg/mL injection solution (1 mL)] Route: jf3 IVP; Site: right antecubital; 15:21 Follow up: Response: Pain is unchanged, physician notified jf3 16:00 Drug: fentaNYL (PF) 50 mcg [fentanyl (PF) 50 mcg/mL injection solution (1 mL)] Route: jf3 IVP; Site: right forearm; Order Results: Radiology Order: Abdomen, Flat\\E\\Upright,PA Chest Test: Abdomen, Flat\\E\\Upright,PA Chest REASON FOR EXAMINATION: fb.feeding tube; ABDOMINAL SERIES: THREE VIEWS.; ; HISTORY: Feeding tube.; ; COMPARISON: Chest x-ray, June 15, 2016.; ; FINDINGS: Upright chest radiograph shows no evidence of infiltrate or free; subdiaphragmatic air. Heart is not enlarged. Lung hernandez are clear.; ; Supine and erect views of the abdomen demonstrate clips in the right upper; quadrant, anastomotic sutures in the left upper quadrant, and L5-S1 lumbar spine; fusion hardware. There is a clip in the right pelvis as well. Sutures are seen; in the left midabdomen. Also noted is an intrarenal calculus projecting in the; lower pole of the right kidney and measuring 8 mm in greatest diameter. There; are air-filled loops of large and small bowel throughout the abdomen, question; mild ileus. There is a curvilinear 1.9 cm metallic density projecting in the; epigastrium which is believed to be related to the gastrostomy tube cannula.; ; IMPRESSION: No evidence of free air. Mild ileus pattern. Intrarenal; nephrolithiasis on the right. Postoperative changes. G-tube cannula visible.; Similar to findings seen by CT on June 09, 2016.; ; ADDENDUM:; ; Additional history has been provided by Billy that the patient relates that; he believes he has "sheared-off" a piece of his G-tube and that the G-tube site; is closed and no longer intubated with a catheter.; ; The 18 mm metallic density presenting in the epigastrium appears to be part of; the G-tube intubation cannula seen on CT study from 06/09/2016. This may be; within the bowel lumen given the history provided above.; ; ; ; ; Signed by; Steven Fontaine MD 06/23/2016 03:21 P; Radiology Order: CT ABD & PELVIS: No Contrast Test: CT ABD & PELVIS: No Contrast REASON FOR EXAMINATION: questionable fb,cut feeding tube; CT STUDY OF THE ABDOMEN AND PELVIS WITHOUT IV OR ORAL CONTRAST:; ; HISTORY: Question foreign body, cut feeding tube.; ; FINDINGS: The bowel gas pattern is unremarkable on digital business rules analyst radiograph.; ; Just beneath the tract for the patient's feeding gastrostomy tube, there is a 4.9; cm linear metallic tubular structure projecting within the gastric lumen,; consistent with a sheared off piece of the patient's gastrostomy feeding tube.; There is a small quantity of air surrounding it which may be in the retention; balloon. The retention balloon appears to be deflated. Clips and sutures are; noted as before. There are two intrarenal calculi in the right renal collecting; system the largest of which is in the lower pole as seen on June 09, 2016.; This measures 8 mm in greatest diameter. There is no evidence of free; intraperitoneal air. Lung window settings demonstrate an area of chronic; atelectasis and scarring in the left lower lobe. This is unchanged.; ; IMPRESSION:There is a 4.9 cm segment of gastrostomy tube catheter within the; gastric lumen. No evidence of free air. The retention balloon appears to; contain a small quantity of air but otherwise in a deflated state.; ; ; Signed by; Steven Fontaine MD 06/23/2016 03:22 P; Outcome: 16:59 Discharge ordered by Provider. ke 17:13 Discharge Assessment: Patient awake, alert and oriented x 3. No cognitive and/or jmb functional deficits noted. Patient verbalized understanding of disposition instructions. Patient awake and alert. obeys commands, Oriented to person, place and time. Patient verbalized understanding of disposition instructions. Patient has no functional deficits. patient administered narcotics - no. The following High Risk Discharge criteria are identified: None. Discharged to home ambulatory. Condition: stable. Discharge instructions given to patient, Instructed on discharge instructions, follow up and referral plans. Demonstrated understanding of instructions, Pt was receptive of discharge instructions/ teaching. No special radiology studies were completed. Property sent home with patient. 17:16 CT Study completed. ag 17:16 Patient left the ED. ag Signatures: Dispatcher [employer] EDMS Sonal Cha, RN RN dls Anika Ayala, Larry Reg gb Parvez Cervantes, MOTOR VEHICLE ESCORT DRIVER MOTOR VEHICLE ESCORT DRIVER Herlinda Salomon Daniell, HADOOP ADMIN HADOOP ADMIN dd6 Raj, Sujey es5 Aris MiddletonRN RN Cathryn Lebron, HADOOP ADMIN HADOOP ADMIN jlf Matt Nickerson RN RN jf3 Ross, Laura lr2 Chart Complete MTDD
--- NOTE | 2016-06-25 18:17 | EDDOCDS ---
Physician Documentation [facility] Name: Edwar Stokes Age: 51 yrs Sex: Male : 1965 Arrival Date: 06/23/2016 Time: 11:03 Bed 19 Private MD: Cedric Marrero A. Disposition: 06/23/16 16:59 Discharged to Home/Self Care. Impression: Feeding difficulties, Chronic pain syndrome. - Condition is Stable. - Discharge Instructions: Chronic Pain, Gastrostomy Tube Replacement. - Medication Reconciliation, Local Pharmacy Hours form. - Follow up: Private Physician; When: DR Delarosa to replace g tube will call for out patient time; Reason: Further diagnostic work-up, Continuance of care. - Problem is an ongoing problem. - Symptoms are unchanged. Historical: - Allergies: no known allergies; - Home Meds: 1. aspirin 81 mg Oral tab 1 tab once daily 2. Carafate 100 mg/mL Oral susp 10 mL 4 times per day 3. cyanocobalamin (vitamin B-12) 1,000 mcg oral tab every 3 days 4. multivitamin Oral tab 1 tab daily 5. omeprazole 40 mg Oral cpDR 1 cap 2 times per day 6. oxycodone 20 mg Oral tab 1 tab every 4 hours 7. Oysco-500 500 mg calcium (1,250 mg) oral tab twice a day 8. senna 8.6 mg oral tab 1 tabs twice a day 9. Tab-A-Christian oral tab twice a day 10. vitamin D-3 1000 units daily 11. zinc gluconate 50 mg oral tab daily - PMHx: c diff; chronic abdominal pain; esophageal strictures; GERD; opiate abuse; opiate dependency; - PSHx: Gastric Bypass; back surgery; Cholecystectomy; right arm tendon repair; Appendectomy; - Social history: Smoking status: Patient uses tobacco products, light tobacco smoker. No barriers to communication noted, The patient speaks fluent Yi. - Family history: Not pertinent. - : The pt / caregiver states he / she is not on anticoagulants. Home medication list is obtained from the patient, [employer] import data. - Exposure Risk Screening:: None identified. Vital Signs: 06/23 11:05 BP 103 / 69; Pulse 83; Resp 18 S; Temp 96.6(O); Pulse Ox 100% on R/A; Weight 56.25 kg / dd6 124.01 lbs (R); Height 5 ft. 11 in. (180.34 cm) (R); 11:27 BP 102 / 66; Pulse 77; Resp 18; Temp 96.0(O); Pulse Ox 98% on R/A; lr2 15:11 BP 96 / 67; Pulse 56; Resp 17; Temp 99.7(TE); Pulse Ox 100% on R/A; lr2 17:13 BP 100 / 60; Pulse 70; Resp 18; Temp 96.8(O); Pulse Ox 100% on R/A; Pain 4/10; jmb 11:05 Body Mass Index 17.29 (56.25 kg, 180.34 cm) dd6 MDM: 12:27 Abdomen, Flat\E\Upright,PA Chest Ordered. EDMS 13:22 ketorolac 60 mg IM once ordered. ke 13:23 Promethazine 25 mg IM once ordered. ke 13:23 CT ABD & PELVIS: No Contrast Ordered. EDMS 14:10 IV Saline Lock ordered. ke 14:10 NS 0.9% 1000 ml IV at 250 mL/hr continuous ordered. ke 14:11 fentaNYL (PF) 50 mcg IVP once ordered. ke 14:12 [facility] ordered. ke 14:17 [facility] Order complete. jlf 15:47 fentaNYL (PF) 50 mcg IVP once ordered. ke 16:55 Financial registration complete. zo 18:02 [facility] Payment Agreement was scanned into [email or web address] and attached to record. zo 06/24 11:37 T-Sheet-- Draft Copy was scanned into [email or web address] and attached to record. gb Administered Medications: 06/23 13:33 Drug: ketorolac 60 mg [ketorolac 30 mg/mL (1 mL) injection solution (2 mL)] Route: IM; jf3 Site: left gluteus; 14:10 Follow up: Response: Pain is unchanged, physician notified jf3 13:35 Drug: Promethazine 25 mg [promethazine 25 mg/mL injection solution (1 mL)] Route: IM; jf3 Site: right gluteus; 14:11 Follow up: Response: Nausea is decreased jf3 14:41 Drug: NS 0.9% 1000 ml [sodium chloride 0.9 % injection solution] Route: IV; Rate: 250 jf3 mL/hr; Site: right antecubital; 14:42 Drug: fentaNYL (PF) 50 mcg [fentanyl (PF) 50 mcg/mL injection solution (1 mL)] Route: jf3 IVP; Site: right antecubital; 15:21 Follow up: Response: Pain is unchanged, physician notified jf3 16:00 Drug: fentaNYL (PF) 50 mcg [fentanyl (PF) 50 mcg/mL injection solution (1 mL)] Route: jf3 IVP; Site: right forearm; Signatures: Dispatcher [employer] EDMS Sonal Cha, RN RN dls Anika Ayala, Reg Reg gb Parvez Cervantes, RADIOLOGY RN RADIOLOGY RN Herlinda Salomon JoshuaRN RN Cathryn Lebron, FRETTED STRING INSTRUMENT REPAIRER FRETTED STRING INSTRUMENT REPAIRER jlf Matt Nickerson,RN RN jf3 The chart was reviewed and I authenticate all verbal orders and agree with the evaluation and treatment provided.Corrections: (The following items were deleted from the chart) 14:41 14:19 Fluoro Guidance ordered. EDMS EDMS 14:43 14:41 FLUORO GUID FOR NEEDLE PLACEMT ordered. EDMS EDMS Attachments: 18:02 [facility] Payment Agreement zo 06/24 11:37 T-Sheet-- Draft Copy gb Chart Complete MTDD
--- NOTE | 2016-06-25 18:17 | EDDOCDS ---
Physician Documentation [facility] Name: Edwar Stokes Age: 51 yrs Sex: Male : 1965 Arrival Date: 06/23/2016 Time: 11:03 Bed 19 Private MD: Cedric Marrero A. Disposition: 06/23/16 16:59 Discharged to Home/Self Care. Impression: Feeding difficulties, Chronic pain syndrome. - Condition is Stable. - Discharge Instructions: Chronic Pain, Gastrostomy Tube Replacement. - Medication Reconciliation, Local Pharmacy Hours form. - Follow up: Private Physician; When: DR Delarosa to replace g tube will call for out patient time; Reason: Further diagnostic work-up, Continuance of care. - Problem is an ongoing problem. - Symptoms are unchanged. Historical: - Allergies: no known allergies; - Home Meds: 1. aspirin 81 mg Oral tab 1 tab once daily 2. Carafate 100 mg/mL Oral susp 10 mL 4 times per day 3. cyanocobalamin (vitamin B-12) 1,000 mcg oral tab every 3 days 4. multivitamin Oral tab 1 tab daily 5. omeprazole 40 mg Oral cpDR 1 cap 2 times per day 6. oxycodone 20 mg Oral tab 1 tab every 4 hours 7. Oysco-500 500 mg calcium (1,250 mg) oral tab twice a day 8. senna 8.6 mg oral tab 1 tabs twice a day 9. Tab-A-Christian oral tab twice a day 10. vitamin D-3 1000 units daily 11. zinc gluconate 50 mg oral tab daily - PMHx: c diff; chronic abdominal pain; esophageal strictures; GERD; opiate abuse; opiate dependency; - PSHx: Gastric Bypass; back surgery; Cholecystectomy; right arm tendon repair; Appendectomy; - Social history: Smoking status: Patient uses tobacco products, light tobacco smoker. No barriers to communication noted, The patient speaks fluent Greek. - Family history: Not pertinent. - : The pt / caregiver states he / she is not on anticoagulants. Home medication list is obtained from the patient, [employer] import data. - Exposure Risk Screening:: None identified. Vital Signs: 06/23 11:05 BP 103 / 69; Pulse 83; Resp 18 S; Temp 96.6(O); Pulse Ox 100% on R/A; Weight 56.25 kg / dd6 124.01 lbs (R); Height 5 ft. 11 in. (180.34 cm) (R); 11:27 BP 102 / 66; Pulse 77; Resp 18; Temp 96.0(O); Pulse Ox 98% on R/A; lr2 15:11 BP 96 / 67; Pulse 56; Resp 17; Temp 99.7(TE); Pulse Ox 100% on R/A; lr2 17:13 BP 100 / 60; Pulse 70; Resp 18; Temp 96.8(O); Pulse Ox 100% on R/A; Pain 4/10; jmb 11:05 Body Mass Index 17.29 (56.25 kg, 180.34 cm) dd6 MDM: 12:27 Abdomen, Flat\E\Upright,PA Chest Ordered. EDMS 13:22 ketorolac 60 mg IM once ordered. ke 13:23 Promethazine 25 mg IM once ordered. ke 13:23 CT ABD & PELVIS: No Contrast Ordered. EDMS 14:10 IV Saline Lock ordered. ke 14:10 NS 0.9% 1000 ml IV at 250 mL/hr continuous ordered. ke 14:11 fentaNYL (PF) 50 mcg IVP once ordered. ke 14:12 [facility] C[facility] Order ordered. ke 14:17 [facility] Account[facility] Cpa Order complete. jlf 15:47 fentaNYL (PF) 50 mcg IVP once ordered. ke 16:55 Financial registration complete. zo 18:02 [facility] Payment Agreement was scanned into [employer] and attached to record. zo 06/24 11:37 T-Sheet-- Draft Copy was scanned into [employer] and attached to record. gb Administered Medications: 06/23 13:33 Drug: ketorolac 60 mg [ketorolac 30 mg/mL (1 mL) injection solution (2 mL)] Route: IM; jf3 Site: left gluteus; 14:10 Follow up: Response: Pain is unchanged, physician notified jf3 13:35 Drug: Promethazine 25 mg [promethazine 25 mg/mL injection solution (1 mL)] Route: IM; jf3 Site: right gluteus; 14:11 Follow up: Response: Nausea is decreased jf3 14:41 Drug: NS 0.9% 1000 ml [sodium chloride 0.9 % injection solution] Route: IV; Rate: 250 jf3 mL/hr; Site: right antecubital; 14:42 Drug: fentaNYL (PF) 50 mcg [fentanyl (PF) 50 mcg/mL injection solution (1 mL)] Route: jf3 IVP; Site: right antecubital; 15:21 Follow up: Response: Pain is unchanged, physician notified jf3 16:00 Drug: fentaNYL (PF) 50 mcg [fentanyl (PF) 50 mcg/mL injection solution (1 mL)] Route: jf3 IVP; Site: right forearm; Signatures: Dispatcher [employer] EDMS Sonal Cha, RN RN dls Anika Ayala, Reg Reg gb Parvez Cervantes, ENGLISH AND READING INSTRUCTOR ENGLISH AND READING INSTRUCTOR Herlinda Salomon JoshuaRN RN Cathryn Lebron, COMMERCIAL REPRESENTATIVE COMMERCIAL REPRESENTATIVE jlf Matt Nickerson,RN RN jf3 The chart was reviewed and I authenticate all verbal orders and agree with the evaluation and treatment provided.Corrections: (The following items were deleted from the chart) 14:41 14:19 Fluoro Guidance ordered. EDMS EDMS 14:43 14:41 FLUORO GUID FOR NEEDLE PLACEMT ordered. EDMS EDMS Attachments: 18:02 [facility] Payment Agreement zo 06/24 11:37 T-Sheet-- Draft Copy gb Chart Complete MTDD
== END 2016-06-23 17:16 | disposition home or self-care (01) ==
LOC: M ED 11:03
DX: K29.70 Gastritis, unspecified, without bleeding (principal); G89.29 Other chronic pain; Z43.1 Encounter for attention to gastrostomy; K21.9 Gastro-esophageal reflux disease without esophagitis; F11.10 Opioid abuse, uncomplicated; F17.200 Nicotine dependence, unspecified, uncomplicated; Z86.19 Personal history of other infectious and parasitic diseases; Z98.84 Bariatric surgery status; Z90.49 Acquired absence of other specified parts of digestive tract; Z90.89 Acquired absence of other organs; Z79.891 Long term (current) use of opiate analgesic; Z79.82 Long term (current) use of aspirin; Z79.899 Other long term (current) drug therapy
CPT/HCPCS: 74022; 74176; 96372; 99284; J1885; J3010; Q9967

== ENCOUNTER 2016-07-15 11:24 | Emergency (ER) | payer OTHER, MEDICARE ==
[2016-07-15] MEDS ORDERED: GASTROGRAFIN SOLUTION 30ML (Q9963) As Ordered ONE (12:43)
[2016-07-15] MEDS ORDERED: MORPHINE 4 MG/ML 1ML SYRINGE As Ordered ONE ×2 (12:43→13:15)
[2016-07-15] MEDS ORDERED: ONDANSETRON 4MG/2ML VIAL (J2405) As Ordered ONE (12:44)
[2016-07-15 12:53] LABS: BASO % 0.3 % (0.0-1.0); EOS % 0.7 % (0.0-3.0); LARGE UNSTAINED CELL # 0.1 K/mm3 (0.0-0.4); LARGE UNSTAINED CELL % 1.5 % (0.0-4.0); LYMPH # 0.8 K/mm3 (1.5-4.5); LYMPH % 20.3 % (24.0-44.0); MEAN CORPUSCULAR HEMOGLOBIN 30.6 pg (27.0-33.0); MEAN CORPUSCULAR HGB CONC 32.8 g/dl (32.0-36.5); MEAN CORPUSCULAR VOLUME 93.4 fl (80.0-96.0); MONO # 0.2 K/mm3 (0.0-0.8); MONO % 5.4 % (0.0-5.0); NEUTROPHILS # 2.6 K/mm3 (1.8-7.7); NEUTROPHILS % 71.8 % (36.0-66.0); PLATELET COUNT, AUTOMATED 240 k/mm3 (150-450); RED CELL DISTRIBUTION WIDTH 13.9 % (11.5-14.5); WHITE BLOOD COUNT 3.6 K/mm3 (4.0-10.0)
[2016-07-15 13:12] LABS: INR 1.05
[2016-07-15 13:18] LABS: ALBUMIN 3.1 GM/DL (3.2-5.2); ALBUMIN/GLOBULIN RATIO 0.84 (1.00-1.93); ALKALINE PHOSPHATASE 81 U/L (45-117); ALT/SGPT 13 U/L (12-78); AMYLASE 37 U/L (25-115); ANION GAP 6 MEQ/L (8-16); AST/SGOT 13 U/L (15-37); BILIRUBIN,DIRECT 0.2 MG/DL (0.0-0.2); BILIRUBIN,TOTAL 0.3 MG/DL (0.2-1.0); BLOOD UREA NITROGEN 15 MG/DL (7-18); CALCIUM LEVEL 8.7 MG/DL (8.5-10.1); CARBON DIOXIDE LEVEL 30 MEQ/L (21-32); CHLORIDE LEVEL 105 MEQ/L (98-107); CREATININE FOR GFR 0.56 MG/DL (0.70-1.30); GLOMERULAR FILTRATION RATE > 60.0 (>56); GLUCOSE, FASTING 93 MG/DL (70-105); POTASSIUM SERUM 4.3 MEQ/L (3.5-5.1); SODIUM LEVEL 141 MEQ/L (136-145); TOTAL PROTEIN 6.8 GM/DL (6.4-8.2)
--- NOTE | 2016-07-15 13:56 | REP ---
Clinical: Evaluate percutaneous gastrostomy tube. Comparison: 06/23/2016. Findings: A percutaneous gastrostomy tube extends through the midline anterior abdominal wall to the right of midline and appears to be intraluminal with small amount of intraluminal contrast identified adjacent to the peg tube. High-density contrast material in the mid abdomen extending to the left upper quadrant is unchanged compared to prior examination and may be related to prior surgery. A small portion of suspected old catheter is identified within this portion of the presumed residual stomach (images 23 - 30). The small and large bowel is without obstruction. Liver, spleen, pancreas, bilateral adrenal glands and left kidney are normal for noncontrast examination. Right kidney in demonstrates 10 mm nonobstructing calculus. The patient is status post cholecystectomy. Pelvis demonstrates normal bladder and moderately prominent prostate gland as well as small amount of free fluid in the pelvis of uncertain etiology possibly related to recent surgery. Skeletal structures demonstrate prior posterior fusion and laminectomy. Lung bases are clear. Impression: 1. New percutaneous gastrostomy tube extends into the enteric lumen without extravasation. 2. Small amount of free fluid in the pelvis possibly related to recent procedure. 3. No free air or bowel obstruction. 4. Chronic changes as described above. Signed by Esdras Cruz MD 07/15/2016 01:48 P
--- NOTE | 2016-07-15 14:44 | EDDOCDS ---
Physician Documentation [facility] Name: Edwar Stokes Age: 51 yrs Sex: Male : 1965 Arrival Date: 07/15/2016 Time: 11:24 Bed I8 / 16 Private MD: Cedric Marrero A. Disposition: 07/15/16 14:05 Discharged to Home/Self Care. Impression: Abdominal and pelvic pain, Chronic pain, not elsewhere classified. - Condition is Stable. - Discharge Instructions: Abdominal Pain, Adult. - Prescriptions for ZOFRAN ODT 4 mg - dissolve 1 tablet by ORAL route 4 times per day As needed do not chew, do not swallow whole; 10 tablet. - Medication Reconciliation, Local Pharmacy Hours form. - Follow up: Private Physician; When: 4 - 5 days; Reason: Recheck today's complaints, Continuance of care. Follow up: Cedric Marrero; When: As needed; Reason: Continuance of care. - Problem is an ongoing problem. - Symptoms are unchanged. Historical: - Allergies: no known allergies; - Home Meds: 1. aspirin 81 mg Oral tab 1 tab once daily (Last dose: 07/15/2016 06:00) 2. Carafate 100 mg/mL Oral susp 10 mL 4 times per day (Last dose: 07/15/2016 06:00) 3. cyanocobalamin (vitamin B-12) 1,000 mcg oral tab every 3 days DUE TOMORROW 4. multivitamin Oral tab 1 tab daily (Last dose: 07/15/2016 09:00) 5. omeprazole 40 mg Oral cpDR 1 cap 2 times per day (Last dose: 07/15/2016 09:00) 6. oxycodone 20 mg Oral tab 1 tab every 4 hours (Last dose: 07/15/2016 04:00) 7. Oysco-500 500 mg calcium (1,250 mg) oral tab twice a day (Last dose: 07/15/2016 06:00) 8. senna 8.6 mg oral tab 1 tabs twice a day (Last dose: 07/15/2016 06:00) 9. Tab-A-Christian oral tab twice a day (Last dose: 07/15/2016 09:00) 10. vitamin D-3 1000 units daily (Last dose: 07/15/2016 09:00) 11. zinc gluconate 50 mg oral tab daily (Last dose: 07/15/2016 09:00) - PMHx: c diff; chronic abdominal pain; esophageal strictures; GERD; opiate abuse; opiate dependency; - PSHx: g-tube; Appendectomy; Cholecystectomy; Hernia repair; REPAIR LACERATED TENDON RIGHT UPPER ARM; GASTRIC BYPASS; BACK SURGERY---FRACTURE LOWER BACK; - Social history: Smoking status: Patient uses tobacco products, light tobacco smoker. No barriers to communication noted, The patient speaks fluent Slovenian. - Family history: Not pertinent. - : The pt / caregiver states he / she is not on anticoagulants. Home medication list is obtained from the patient, [employer] import data. - Exposure Risk Screening:: None identified. Vital Signs: 07/15 11:39 BP 94 / 63; Pulse 59; Resp 16; Temp 96.9(O); Pulse Ox 100% on R/A; Weight 56.25 kg / kpj 124.01 lbs (R); Height 5 ft. 11 in. (180.34 cm) (R); Pain 10/10; 13:15 BP 110 / 60; Pulse 62; Resp 16; Pulse Ox 99% on R/A; mk4 14:28 BP 93 / 59; Pulse 54; Resp 18; Temp 97.3; Pulse Ox 100% on R/A; Pain 10/10; jml1 11:39 Body Mass Index 17.29 (56.25 kg, 180.34 cm) kpj MDM: 12:29 NS 0.9% 1000 ml IV at 100 mL/hr continuous ordered. ke 12:29 Ondansetron 4 mg IVP once ordered. ke 12:29 IV Saline Lock ordered. ke 12:29 Undress patient appropriately for examination ordered. ke 12:29 morphine 4 mg IVP every 15 minutes; Document pain score/vitals after each dose (Hold if ke SBP < 90mmHg) x2 ordered. 12:31 Amylase Ordered. EDMS 12:31 Basic Metabolic Profile Ordered. EDMS 12:31 CBC with Diff Ordered. EDMS 12:31 Lipase Ordered. EDMS 12:31 Liver Profile Ordered. EDMS 12:31 Prothrombin Time Profile\E\INR Ordered. EDMS 12:31 CT ABD & PELVIS: Oral Contrast Only: some in g tube to verivy placement. not oral EDMS Ordered. 12:31 NOTHING BY MOUTH+DIET ordered. EDMS 13:22 Basic Metabolic Profile Reviewed. ke 13:22 CBC with Diff Reviewed. ke 13:22 Liver Profile Reviewed. ke 13:22 Amylase Reviewed. ke 13:22 Lipase Reviewed. ke 13:22 Prothrombin Time Profile\E\INR Reviewed. ke 14:02 CT ABD & PELVIS: Oral Contrast Only: some in g tube to verivy placement. not oral ke Reviewed. Administered Medications: 12:51 Drug: NS 0.9% 1000 ml [sodium chloride 0.9 % intravenous solution] Route: IV; Rate: 100 mk4 mL/hr; Site: left antecubital; 12:51 Drug: morphine 4 mg [morphine 4 mg/mL intravenous cartridge (1 mL)] Route: IVP; Site: mk4 left antecubital; 13:15 Follow up: Response: Pain is unchanged, physician notified mk4 12:52 Drug: Ondansetron 4 mg Route: IVP; Site: left antecubital; mk4 13:20 Drug: morphine 4 mg [morphine 4 mg/mL intravenous cartridge (1 mL)] Route: IVP; Site: mk4 left antecubital; 13:30 Follow up: Response: Pain is unchanged, physician notified mk4 Signatures: Dispatcher [employer] Elvis Rocha,RN RN ms2 Parvez Cervantes, WINDOWS SERVER ENGINEER WINDOWS SERVER ENGINEER Jackeline Jessica RN RN mk4 MTDD
--- NOTE | 2016-07-15 14:44 | EDDOCDS ---
Nurse's Notes [facility] Name: Edwar Stokes Age: 51 yrs Sex: Male : 1965 Arrival Date: 07/15/2016 Time: 11:24 Bed I8 / 16 Private MD: Cedric Marrero A. Diagnosis: Abdominal and pelvic pain;Chronic pain, not elsewhere classified Presentation: 07/15 11:28 Presenting complaint: EMS states: belly pain for 3 days and worse today ---had feeding ms2 tube placed done one week ago. Adult Sepsis Screening: The patient does not have new or worsening altered mentation. Patient's respiratory rate is less than 22. Suicide/Homicide risk assessment- the patient denies having any suicidal and/or homicidal ideations and does not present with any other emotional, behavioral or mental health complaints. Status: Patient is not a customer services manager or dependent. Transition of care: patient was not received from another setting of care. 11:28 Acuity: ANA Level 3 ms2 11:28 Method Of Arrival: Ambulance ms2 11:31 Presenting complaint: per rn jobson---pt's insurance did not pay for Jevity and unable ms2 to take by mouth. 14:41 Adult Sepsis Screening: Patient has a qSOFA score of 0- Negative Sepsis Screen. mk4 Triage Assessment: 11:42 General: Appears pt appeared distressed and in pain on arrival --presently appears more ms2 calm and relaxed. Behavior is cooperative. Pain: Pain currently is 10 out of 10 on a pain scale. HIV screening NA for this visit Offered previously. The patient is triaged at the bedside. See Assessment in Nurses Notes section of ED record. Neurological: Level of Consciousness is awake, alert, obeys commands. Respiratory: No deficits noted. Airway is patent Respiratory effort is even, unlabored, Respiratory pattern is regular, symmetrical. GI: Abdomen is flat, non- distended g-tube present. Derm: Skin is pink, warm & dry. Musculoskeletal: Range of motion intact in all extremities. Historical: - Allergies: no known allergies; - Home Meds: 1. aspirin 81 mg Oral tab 1 tab once daily (Last dose: 07/15/2016 06:00) 2. Carafate 100 mg/mL Oral susp 10 mL 4 times per day (Last dose: 07/15/2016 06:00) 3. cyanocobalamin (vitamin B-12) 1,000 mcg oral tab every 3 days DUE TOMORROW 4. multivitamin Oral tab 1 tab daily (Last dose: 07/15/2016 09:00) 5. omeprazole 40 mg Oral cpDR 1 cap 2 times per day (Last dose: 07/15/2016 09:00) 6. oxycodone 20 mg Oral tab 1 tab every 4 hours (Last dose: 07/15/2016 04:00) 7. Oysco-500 500 mg calcium (1,250 mg) oral tab twice a day (Last dose: 07/15/2016 06:00) 8. senna 8.6 mg oral tab 1 tabs twice a day (Last dose: 07/15/2016 06:00) 9. Tab-A-Christian oral tab twice a day (Last dose: 07/15/2016 09:00) 10. vitamin D-3 1000 units daily (Last dose: 07/15/2016 09:00) 11. zinc gluconate 50 mg oral tab daily (Last dose: 07/15/2016 09:00) - PMHx: c diff; chronic abdominal pain; esophageal strictures; GERD; opiate abuse; opiate dependency; - PSHx: g-tube; Appendectomy; Cholecystectomy; Hernia repair; REPAIR LACERATED TENDON RIGHT UPPER ARM; GASTRIC BYPASS; BACK SURGERY---FRACTURE LOWER BACK; - Social history: Smoking status: Patient uses tobacco products, light tobacco smoker. No barriers to communication noted, The patient speaks fluent Maltese. - Family history: Not pertinent. - : The pt / caregiver states he / she is not on anticoagulants. Home medication list is obtained from the patient, [employer] import data. - Exposure Risk Screening:: None identified. Screenin:46 Screening information is obtained from the patient. Fall risk: No risks identified. ms2 uses a cane. Assistance ADL's: requires no assistance with activities of daily living. Abuse/DV Screen: The patient / caregiver reports he/she is: not in a situation that causes fear, pain or injury. Nutritional screening: uses tube feedings ---Jevidy 1. Advance Directives: Currently, there is no health care proxy. There is no active DNR order. There is no living will. There is no Power of Full Roll Inspector. Advance directive information has not previously been placed in an [facility] medical record. Further advance directive information is declined. home support is adequate. Assessment: 11:48 General: Appears in no apparent distress, Behavior is cooperative. Pain: Pain currently ms2 is 10 out of 10 on a pain scale. Neurological: Level of Consciousness is awake, alert, obeys commands. Respiratory: No deficits noted. Airway is patent Respiratory effort is even, unlabored, Respiratory pattern is regular, symmetrical. GI: Abdomen is flat, non- distended Bowel sounds present X 4 quads. Abd is soft X 4 quads Abd is tender to palpation pain about g-tube site. Derm: Skin is pink, warm & dry. Musculoskeletal: Range of motion intact in all extremities. 12:53 General: Appears in no apparent distress. Pain: Location: abdomen Pain currently is 10 mk4 out of 10 on a pain scale. Neurological: Level of Consciousness is awake, alert. Derm: Skin is intact, Skin is pale. 13:28 General: Appears distressed, uncomfortable. General: transported to CT scan, inserted mk4 15 ml Gastrografin via g tube , pt raghav poorly, swung arm at me and told me to stop that it hurt. Pain: Location: abdomen Pain currently is 10 out of 10 on a pain scale. 13:39 Adult Sepsis Screening: The patient does not have new or worsening altered mentation. mk4 Patient's respiratory rate is less than 22. Systolic blood pressure is greater than 100. Patient has a qSOFA score of 0- Negative Sepsis Screen. 14:38 General: Appears distressed, uncomfortable, Behavior is cooperative. Pain: Location: mk4 abdomen Pain currently is 10 out of 10 on a pain scale. Vital Signs: 11:39 BP 94 / 63; Pulse 59; Resp 16; Temp 96.9(O); Pulse Ox 100% on R/A; Weight 56.25 kg (R); [facility] Height 5 ft. 11 in. (180.34 cm) (R); Pain 10/10; 13:15 BP 110 / 60; Pulse 62; Resp 16; Pulse Ox 99% on R/A; mk4 14:28 BP 93 / 59; Pulse 54; Resp 18; Temp 97.3; Pulse Ox 100% on R/A; Pain 10/10; jml1 11:39 Body Mass Index 17.29 (56.25 kg, 180.34 cm) [facility] Vitals: 11:39 Log In Time N/A - ambulance arrival. [facility] ED Course: 11:25 Patient visited by Jose Smith PCA. jrd 11:25 Patient moved to Waiting jrd 11:26 Cedric Marrero is Private Physician. jrd 11:26 Patient visited by Jose Smith PCA. jrd 11:26 Patient moved to I8 / 16 jrd 11:31 Triage Initiated ms2 12:06 Patient visited by Ti Marquez. jml1 12:21 Parvez Cervantes [facility]. ke 12:21 Patient visited by Parvez Cervantes FNP. ke 12:21 Patient visited by Parvez Cervantes FNP. ke 12:42 Amylase Sent. mk4 12:42 Basic Metabolic Profile Sent. mk4 12:42 CBC with Diff Sent. mk4 12:42 Lipase Sent. mk4 12:42 Liver Profile Sent. mk4 12:42 Prothrombin Time Profile\E\INR Sent. mk4 12:48 Patient visited by Parvez Cervantes FNP. ke 12:53 The patient / caregiver is instructed regarding the plan of care and ED course. mk4 12:53 Inserted saline lock: 20 gauge in left antecubital area and blood collected. mk4 13:19 Patient visited by Jackeline Werner RN. mk4 13:59 Patient visited by Parvez Cervantes FNP. ke 13:59 CT ABD & PELVIS: Oral Contrast Only: some in g tube to verivy placement. not oral EDMS Returned. 14:04 Cedric Marrero is Referral Physician. ke 14:30 Patient visited by Ti Marquez. jml1 14:38 Discontinued IV lock intact, bleeding controlled, pressure dressing applied. mk4 14:40 No procedures done that require assistance. mk4 Administered Medications: 12:51 Drug: NS 0.9% 1000 ml [sodium chloride 0.9 % intravenous solution] Route: IV; Rate: 100 mk4 mL/hr; Site: left antecubital; 12:51 Drug: morphine 4 mg [morphine 4 mg/mL intravenous cartridge (1 mL)] Route: IVP; Site: mk4 left antecubital; 13:15 Follow up: Response: Pain is unchanged, physician notified mk4 12:52 Drug: Ondansetron 4 mg Route: IVP; Site: left antecubital; [facility] 13:20 Drug: morphine 4 mg [morphine 4 mg/mL intravenous cartridge (1 mL)] Route: IVP; Site: 4 left antecubital; 13:30 Follow up: Response: Pain is unchanged, physician notified 4 Order Results: Lab Order: Amylase; SPEC'M 07/15/16 12:39 Test: AMYLASE; Value: 37; Range: 25-115; Units: U/L; Status: F Lab Order: Basic Metabolic Profile; SPEC' 07/15/16 12:39 Test: GLUCOSE, FASTING; Value: 93; Range: 70-105; Units: MG/DL; Status: F Test: BLOOD UREA NITROGEN; Value: 15; Range: 7-18; Units: MG/DL; Status: F Test: CREATININE FOR GFR; Value: 0.56; Range: 0.70-1.30; Abnormal: Below low normal; Units: MG/DL; Status: F Test: GLOMERULAR FILTRATION RATE; Value: > 60.0; Range: >56; Status: F Test: SODIUM LEVEL; Value: 141; Range: 136-145; Units: MEQ/L; Status: F Test: POTASSIUM SERUM; Value: 4.3; Range: 3.5-5.1; Units: MEQ/L; Status: F Test: CHLORIDE LEVEL; Value: 105; Range: 98-107; Units: MEQ/L; Status: F Test: CARBON DIOXIDE LEVEL; Value: 30; Range: 21-32; Units: MEQ/L; Status: F Test: ANION GAP; Value: 6; Range: 8-16; Abnormal: Below low normal; Units: MEQ/L; Status: F Test: CALCIUM LEVEL; Value: 8.7; Range: 8.5-10.1; Units: MG/DL; Status: F Test Note: ; Units are mL/min/1.73 m2 Chronic Kidney Disease Staging per NKF: Stage I & II GFR >=60 Normal to Mildly Decreased Stage III GFR 30-59 Moderately Decreased Stage IV GFR 15-29 Severely Decreased Stage V GFR <15 Very Little GFR Left ESRD GFR <15 on ENVIRONMENTAL LABORATORY TECHNICIAN Lab Order: CBC with Diff; SPEC'M 07/15/16 12:39 Test: WHITE BLOOD COUNT; Value: 3.6; Range: 4.0-10.0; Abnormal: Below low normal; Units: K/mm3; Status: F Test: RED BLOOD COUNT; Value: 3.69; Range: 4.30-6.10; Abnormal: Below low normal; Units: M/mm3; Status: F Test: HEMOGLOBIN; Value: 11.3; Range: 14.0-18.0; Abnormal: Below low normal; Units: g/dl; Status: F Test: HEMATOCRIT; Value: 34.5; Range: 42.0-52.0; Abnormal: Below low normal; Units: %; Status: F Test: MEAN CORPUSCULAR VOLUME; Value: 93.4; Range: 80.0-96.0; Units: fl; Status: F Test: MEAN CORPUSCULAR HEMOGLOBIN; Value: 30.6; Range: 27.0-33.0; Units: pg; Status: F Test: MEAN CORPUSCULAR HGB CONC; Value: 32.8; Range: 32.0-36.5; Units: g/dl; Status: F Test: RED CELL DISTRIBUTION WIDTH; Value: 13.9; Range: 11.5-14.5; Units: %; Status: F Test: PLATELET COUNT, AUTOMATED; Value: 240; Range: 150-450; Units: k/mm3; Status: F Test: NEUTROPHILS %; Value: 71.8; Range: 36.0-66.0; Abnormal: Above high normal; Units: %; Status: F Test: LYMPH %; Value: 20.3; Range: 24.0-44.0; Abnormal: Below low normal; Units: %; Status: F Test: MONO %; Value: 5.4; Range: 0.0-5.0; Abnormal: Above high normal; Units: %; Status: F Test: EOS %; Value: 0.7; Range: 0.0-3.0; Units: %; Status: F Test: BASO %; Value: 0.3; Range: 0.0-1.0; Units: %; Status: F Test: LARGE UNSTAINED CELL %; Value: 1.5; Range: 0.0-4.0; Units: %; Status: F Test: NEUTROPHILS #; Value: 2.6; Range: 1.8-7.7; Units: K/mm3; Status: F Test: LYMPH #; Value: 0.8; Range: 1.5-4.5; Abnormal: Below low normal; Units: K/mm3; Status: F Test: MONO #; Value: 0.2; Range: 0.0-0.8; Units: K/mm3; Status: F Test: EOS #; Value: 0.0; Range: 0.0-0.50; Units: K/mm3; Status: F Test: BASO #; Value: 0.0; Range: 0.0-0.2; Units: K/mm3; Status: F Test: LARGE UNSTAINED CELL #; Value: 0.1; Range: 0.0-0.4; Units: K/mm3; Status: F Lab Order: Lipase; [facility]' 07/15/16 12:39 Test: LIPASE; Value: 90; Range: 73-393; Units: U/L; Status: F Lab Order: Liver Profile; [facility]' 07/15/16 12:39 Test: AST/SGOT; Value: 13; Range: 15-37; Abnormal: Below low normal; Units: U/L; Status: F Test: ALT/SGPT; Value: 13; Range: 12-78; Units: U/L; Status: F Test: ALKALINE PHOSPHATASE; Value: 81; Range: 45-117; Units: U/L; Status: F Test: BILIRUBIN,TOTAL; Value: 0.3; Range: 0.2-1.0; Units: MG/DL; Status: F Test: BILIRUBIN,DIRECT; Value: 0.2; Range: 0.0-0.2; Units: MG/DL; Status: F Test: TOTAL PROTEIN; Value: 6.8; Range: 6.4-8.2; Units: GM/DL; Status: F Test: ALBUMIN; Value: 3.1; Range: 3.2-5.2; Abnormal: Below low normal; Units: GM/DL; Status: F Test: ALBUMIN/GLOBULIN RATIO; Value: 0.84; Range: 1.00-1.93; Abnormal: Below low normal; Status: F Lab Order: Prothrombin Time Profile\E\INR; [facility] 07/15/16 12:39 Test: PROTHROMBIN TIME; Value: 13.8; Range: 12.3-14.5; Units: SECONDS; Status: F Test: INR; Value: 1.05; Status: F Test Note: ; THERAPUTIC HUMAN INR VALUES INDICATIONS NORMAL RANGES PROPHYLAXIS/TREATMENT OF: VENOUS THROMBOSIS 2.0-3.0 PULMONARY EMBOLISM 2.0-3.0 PREVENTION OF SYSTEMIC EMBOLISM FROM: TISSUE HEART VALVES 2.0-3.0 ACUTE MYOCARDIAL INFARCTION 2.0-3.0 VALVULAR HEART DISEASE 2.0-3.0 ATRIAL FIBRILLATION 2.0-3.0 MECHANICAL VALVES(HIGH RISK) 2.5-3.5 RECURRENT MYOCARDIAL INFARCTION 2.5-3.5 Radiology Order: CT ABD & PELVIS: Oral Contrast Only: some in g tube to verivy placement. not oral Test: CT ABD & PELVIS: Oral Contrast Only: some in g tube to verivy placement. not oral REASON FOR EXAMINATION: post operative; Clinical: Evaluate percutaneous gastrostomy tube.; ; Comparison: 06/23/2016.; ; Findings:; A percutaneous gastrostomy tube extends through the midline anterior abdominal; wall to the right of midline and appears to be intraluminal with small amount of; intraluminal contrast identified adjacent to the peg tube. High-density contrast; material in the mid abdomen extending to the left upper quadrant is unchanged; compared to prior examination and may be related to prior surgery. A small; portion of suspected old catheter is identified within this portion of the; presumed residual stomach (images 23 - 30). The small and large bowel is without; obstruction.; ; Liver, spleen, pancreas, bilateral adrenal glands and left kidney are normal for; noncontrast examination. Right kidney in demonstrates 10 mm nonobstructing; calculus. The patient is status post cholecystectomy. Pelvis demonstrates; normal bladder and moderately prominent prostate gland as well as small amount of; free fluid in the pelvis of uncertain etiology possibly related to recent; surgery. Skeletal structures demonstrate prior posterior fusion and laminectomy.; Lung bases are clear.; ; Impression:; 1. New percutaneous gastrostomy tube extends into the enteric lumen without; extravasation.; 2. Small amount of free fluid in the pelvis possibly related to recent; procedure. 3. No free air or bowel obstruction.; 4. Chronic changes as described above.; ; ; Signed by; Esdras Cruz MD 07/15/2016 01:48 P; Outcome: 14:05 Discharge ordered by Provider. ke 14:38 Discharge Assessment: Patient awake, alert and oriented x 3. No cognitive and/or mk4 functional deficits noted. Patient verbalized understanding of disposition instructions. Patient awake and alert. Discharge Assessment: patient administered narcotics - yes. Pt provided with safe discharge. The following High Risk Discharge criteria are identified: None. Condition: good Condition: stable. CT Study completed. Property sent home with patient. 14:43 Patient left the ED. 4 Signatures: Dispatcher [employer] EDElvis Clark,RN RN ms2 Bekah Friedman RN RN kpj Parvez Cervantes, DESIGN DRAFTER CHIEF DESIGN DRAFTER CHIEF Ti Byrd jml1 Jackeline Werner RN RN mk4 Jose Smith, JAVON LOG YARD MANAGER jrd Corrections: (The following items were deleted from the chart) 13:40 13:15 BP 110 / 60; Pulse 62bpm; Resp 16bpm; mk4 mk4 MTDD
[2016-07-16] MEDS ORDERED: VITA500T3 PO (01:42)
[2016-07-16] MEDS ORDERED: VITACHTA PO (01:42)
[2016-07-16] MEDS ORDERED: OMEP40CA2 PO (01:42)
[2016-07-16] MEDS ORDERED: MIRT45TA PO (01:42)
--- NOTE | 2016-07-17 15:44 | EDDOCDS ---
Physician Documentation [facility], [place] Name: Edwar Stokes Age: 51 yrs Sex: Male : 1965 Arrival Date: 07/15/2016 Time: 11:24 Bed I8 / 16 Private MD: Cedric Marrero A. Disposition: 07/15/16 14:05 Discharged to Home/Self Care. Impression: Abdominal and pelvic pain, Chronic pain, not elsewhere classified. - Condition is Stable. - Discharge Instructions: Abdominal Pain, Adult. - Prescriptions for ZOFRAN ODT 4 mg - dissolve 1 tablet by ORAL route 4 times per day As needed do not chew, do not swallow whole; 10 tablet. - Medication Reconciliation, Local Pharmacy Hours form. - Follow up: Private Physician; When: 4 - 5 days; Reason: Recheck today's complaints, Continuance of care. Follow up: Cedric Marrero; When: As needed; Reason: Continuance of care. - Problem is an ongoing problem. - Symptoms are unchanged. Historical: - Allergies: no known allergies; - Home Meds: 1. aspirin 81 mg Oral tab 1 tab once daily (Last dose: 07/15/2016 06:00) 2. Carafate 100 mg/mL Oral susp 10 mL 4 times per day (Last dose: 07/15/2016 06:00) 3. cyanocobalamin (vitamin B-12) 1,000 mcg oral tab every 3 days DUE TOMORROW 4. multivitamin Oral tab 1 tab daily (Last dose: 07/15/2016 09:00) 5. omeprazole 40 mg Oral cpDR 1 cap 2 times per day (Last dose: 07/15/2016 09:00) 6. oxycodone 20 mg Oral tab 1 tab every 4 hours (Last dose: 07/15/2016 04:00) 7. Oysco-500 500 mg calcium (1,250 mg) oral tab twice a day (Last dose: 07/15/2016 06:00) 8. senna 8.6 mg oral tab 1 tabs twice a day (Last dose: 07/15/2016 06:00) 9. Tab-A-Christian oral tab twice a day (Last dose: 07/15/2016 09:00) 10. vitamin D-3 1000 units daily (Last dose: 07/15/2016 09:00) 11. zinc gluconate 50 mg oral tab daily (Last dose: 07/15/2016 09:00) - PMHx: c diff; chronic abdominal pain; esophageal strictures; GERD; opiate abuse; opiate dependency; - PSHx: g-tube; Appendectomy; Cholecystectomy; Hernia repair; REPAIR LACERATED TENDON RIGHT UPPER ARM; GASTRIC BYPASS; BACK SURGERY---FRACTURE LOWER BACK; - Social history: Smoking status: Patient uses tobacco products, light tobacco smoker. No barriers to communication noted, The patient speaks fluent Serbian. - Family history: Not pertinent. - : The pt / caregiver states he / she is not on anticoagulants. Home medication list is obtained from the patient, [employer] import data. - Exposure Risk Screening:: None identified. Vital Signs: 07/15 11:39 BP 94 / 63; Pulse 59; Resp 16; Temp 96.9(O); Pulse Ox 100% on R/A; Weight 56.25 kg / kpj 124.01 lbs (R); Height 5 ft. 11 in. (180.34 cm) (R); Pain 10/10; 13:15 BP 110 / 60; Pulse 62; Resp 16; Pulse Ox 99% on R/A; mk4 14:28 BP 93 / 59; Pulse 54; Resp 18; Temp 97.3; Pulse Ox 100% on R/A; Pain 10/10; jml1 11:39 Body Mass Index 17.29 (56.25 kg, 180.34 cm) kpj MDM: 12:29 NS 0.9% 1000 ml IV at 100 mL/hr continuous ordered. ke 12:29 Ondansetron 4 mg IVP once ordered. ke 12:29 IV Saline Lock ordered. ke 12:29 Undress patient appropriately for examination ordered. ke 12:29 morphine 4 mg IVP every 15 minutes; Document pain score/vitals after each dose (Hold if ke SBP < 90mmHg) x2 ordered. 12:31 Amylase Ordered. EDMS 12:31 Basic Metabolic Profile Ordered. EDMS 12:31 CBC with Diff Ordered. EDMS 12:31 Lipase Ordered. EDMS 12:31 Liver Profile Ordered. EDMS 12:31 Prothrombin Time Profile\E\INR Ordered. EDMS 12:31 CT ABD & PELVIS: Oral Contrast Only: some in g tube to verivy placement. not oral EDMS Ordered. 12:31 NOTHING BY MOUTH+DIET ordered. EDMS 13:22 Basic Metabolic Profile Reviewed. ke 13:22 CBC with Diff Reviewed. ke 13:22 Liver Profile Reviewed. ke 13:22 Amylase Reviewed. ke 13:22 Lipase Reviewed. ke 13:22 Prothrombin Time Profile\E\INR Reviewed. ke 14:02 CT ABD & PELVIS: Oral Contrast Only: some in g tube to verivy placement. not oral ke Reviewed. 07/16 02:02 PREALBUMIN Ordered. EDMS 13:53 T-Sheet-- Draft Copy was scanned into [employer] and attached to record. gb Administered Medications: Discontinued: NS 0.9% 1000 ml IV at 100 mL/hr continuous 07/15 12:51 Drug: NS 0.9% 1000 ml [sodium chloride 0.9 % intravenous solution] Route: IV; Rate: 100 mk4 mL/hr; Site: left antecubital; 14:48 Follow up: IV Status: Completed infusion; Infusion discontinued; IV Intake: 400ml mk4 12:51 Drug: morphine 4 mg [morphine 4 mg/mL intravenous cartridge (1 mL)] Route: IVP; Site: mk4 left antecubital; 13:15 Follow up: Response: Pain is unchanged, physician notified mk4 12:52 Drug: Ondansetron 4 mg Route: IVP; Site: left antecubital; mk4 14:49 Follow up: Response: Nausea is unchanged mk4 13:20 Drug: morphine 4 mg [morphine 4 mg/mL intravenous cartridge (1 mL)] Route: IVP; Site: mk4 left antecubital; 13:30 Follow up: Response: Pain is unchanged, physician notified mk4 Signatures: Dispatcher [employer] EDMS Elvis Torres,RN RN ms2 Anika Ayala, Reg Reg Parvez Tamez, SUPERVISOR AGRICULTURAL EDUCATION SUPERVISOR AGRICULTURAL EDUCATION Jackeline Jessica RN RN mk4 The chart was reviewed and I authenticate all verbal orders and agree with the evaluation and treatment provided.Attachments: 07/16 13:53 T-Sheet-- Draft Copy gb Chart Complete MTDD
--- NOTE | 2016-07-17 15:44 | EDDOCDS ---
Physician Documentation [facility] Name: Edwar Stokes Age: 51 yrs Sex: Male : 1965 Arrival Date: 07/15/2016 Time: 11:24 Bed I8 / 16 Private MD: Cedric Marrero A. Disposition: 07/15/16 14:05 Discharged to Home/Self Care. Impression: Abdominal and pelvic pain, Chronic pain, not elsewhere classified. - Condition is Stable. - Discharge Instructions: Abdominal Pain, Adult. - Prescriptions for ZOFRAN ODT 4 mg - dissolve 1 tablet by ORAL route 4 times per day As needed do not chew, do not swallow whole; 10 tablet. - Medication Reconciliation, Local Pharmacy Hours form. - Follow up: Private Physician; When: 4 - 5 days; Reason: Recheck today's complaints, Continuance of care. Follow up: Cedric Marrero; When: As needed; Reason: Continuance of care. - Problem is an ongoing problem. - Symptoms are unchanged. Historical: - Allergies: no known allergies; - Home Meds: 1. aspirin 81 mg Oral tab 1 tab once daily (Last dose: 07/15/2016 06:00) 2. Carafate 100 mg/mL Oral susp 10 mL 4 times per day (Last dose: 07/15/2016 06:00) 3. cyanocobalamin (vitamin B-12) 1,000 mcg oral tab every 3 days DUE TOMORROW 4. multivitamin Oral tab 1 tab daily (Last dose: 07/15/2016 09:00) 5. omeprazole 40 mg Oral cpDR 1 cap 2 times per day (Last dose: 07/15/2016 09:00) 6. oxycodone 20 mg Oral tab 1 tab every 4 hours (Last dose: 07/15/2016 04:00) 7. Oysco-500 500 mg calcium (1,250 mg) oral tab twice a day (Last dose: 07/15/2016 06:00) 8. senna 8.6 mg oral tab 1 tabs twice a day (Last dose: 07/15/2016 06:00) 9. Tab-A-Christian oral tab twice a day (Last dose: 07/15/2016 09:00) 10. vitamin D-3 1000 units daily (Last dose: 07/15/2016 09:00) 11. zinc gluconate 50 mg oral tab daily (Last dose: 07/15/2016 09:00) - PMHx: c diff; chronic abdominal pain; esophageal strictures; GERD; opiate abuse; opiate dependency; - PSHx: g-tube; Appendectomy; Cholecystectomy; Hernia repair; REPAIR LACERATED TENDON RIGHT UPPER ARM; GASTRIC BYPASS; BACK SURGERY---FRACTURE LOWER BACK; - Social history: Smoking status: Patient uses tobacco products, light tobacco smoker. No barriers to communication noted, The patient speaks fluent Kazakh. - Family history: Not pertinent. - : The pt / caregiver states he / she is not on anticoagulants. Home medication list is obtained from the patient, [employer] (?) import data. - Exposure Risk Screening:: None identified. Vital Signs: 07/15 11:39 BP 94 / 63; Pulse 59; Resp 16; Temp 96.9(O); Pulse Ox 100% on R/A; Weight 56.25 kg / kpj 124.01 lbs (R); Height 5 ft. 11 in. (180.34 cm) (R); Pain 10/10; 13:15 BP 110 / 60; Pulse 62; Resp 16; Pulse Ox 99% on R/A; mk4 14:28 BP 93 / 59; Pulse 54; Resp 18; Temp 97.3; Pulse Ox 100% on R/A; Pain 10/10; jml1 11:39 Body Mass Index 17.29 (56.25 kg, 180.34 cm) kpj MDM: 12:29 NS 0.9% 1000 ml IV at 100 mL/hr continuous ordered. ke 12:29 Ondansetron 4 mg IVP once ordered. ke 12:29 IV Saline Lock ordered. ke 12:29 Undress patient appropriately for examination ordered. ke 12:29 morphine 4 mg IVP every 15 minutes; Document pain score/vitals after each dose (Hold if ke SBP < 90mmHg) x2 ordered. 12:31 Amylase Ordered. EDMS 12:31 Basic Metabolic Profile Ordered. EDMS 12:31 CBC with Diff Ordered. EDMS 12:31 Lipase Ordered. EDMS 12:31 Liver Profile Ordered. EDMS 12:31 Prothrombin Time Profile\E\INR Ordered. EDMS 12:31 CT ABD & PELVIS: Oral Contrast Only: some in g tube to verivy placement. not oral EDMS Ordered. 12:31 NOTHING BY MOUTH+DIET ordered. EDMS 13:22 Basic Metabolic Profile Reviewed. ke 13:22 CBC with Diff Reviewed. ke 13:22 Liver Profile Reviewed. ke 13:22 Amylase Reviewed. ke 13:22 Lipase Reviewed. ke 13:22 Prothrombin Time Profile\E\INR Reviewed. ke 14:02 CT ABD & PELVIS: Oral Contrast Only: some in g tube to verivy placement. not oral ke Reviewed. 07/16 02:02 PREALBUMIN Ordered. EDMS 13:53 T-Sheet-- Draft Copy was scanned into [employer] and attached to record. gb Administered Medications: Discontinued: NS 0.9% 1000 ml IV at 100 mL/hr continuous 07/15 12:51 Drug: NS 0.9% 1000 ml [sodium chloride 0.9 % intravenous solution] Route: IV; Rate: 100 mk4 mL/hr; Site: left antecubital; 14:48 Follow up: IV Status: Completed infusion; Infusion discontinued; IV Intake: 400ml mk4 12:51 Drug: morphine 4 mg [morphine 4 mg/mL intravenous cartridge (1 mL)] Route: IVP; Site: mk4 left antecubital; 13:15 Follow up: Response: Pain is unchanged, physician notified mk4 12:52 Drug: Ondansetron 4 mg Route: IVP; Site: left antecubital; mk4 14:49 Follow up: Response: Nausea is unchanged mk4 13:20 Drug: morphine 4 mg [morphine 4 mg/mL intravenous cartridge (1 mL)] Route: IVP; Site: mk4 left antecubital; 13:30 Follow up: Response: Pain is unchanged, physician notified mk4 Signatures: Dispatcher [employer] EDMS Elvis Torres,RN RN ms2 Anika Ayala, Reg Reg Parvez Tamez, COOLING TOWER OPERATOR COOLING TOWER OPERATOR Jackeline Jessica RN RN mk4 The chart was reviewed and I authenticate all verbal orders and agree with the evaluation and treatment provided.Attachments: 07/16 13:53 T-Sheet-- Draft Copy gb Chart Complete MTDD
--- NOTE | 2016-07-17 15:45 | EDDOCDS ---
Nurse's Notes [facility] Name: Edwar Stokes Age: 51 yrs Sex: Male : 1965 Arrival Date: 07/15/2016 Time: 11:24 Bed I8 / 16 Private MD: Cedric Marrero A. Diagnosis: Abdominal and pelvic pain;Chronic pain, not elsewhere classified Presentation: 07/15 11:28 Presenting complaint: EMS states: belly pain for 3 days and worse today ---had feeding ms2 tube placed done one week ago. Adult Sepsis Screening: The patient does not have new or worsening altered mentation. Patient's respiratory rate is less than 22. Suicide/Homicide risk assessment- the patient denies having any suicidal and/or homicidal ideations and does not present with any other emotional, behavioral or mental health complaints. Status: Patient is not a superintendent service or dependent. Transition of care: patient was not received from another setting of care. 11:28 Acuity: ANA Level 3 ms2 11:28 Method Of Arrival: Ambulance ms2 11:31 Presenting complaint: per rn jobson---pt's insurance did not pay for Jevity and unable ms2 to take by mouth. 14:41 Adult Sepsis Screening: Patient has a qSOFA score of 0- Negative Sepsis Screen. mk4 Triage Assessment: 11:42 General: Appears pt appeared distressed and in pain on arrival --presently appears more ms2 calm and relaxed. Behavior is cooperative. Pain: Pain currently is 10 out of 10 on a pain scale. HIV screening NA for this visit Offered previously. The patient is triaged at the bedside. See Assessment in Nurses Notes section of ED record. Neurological: Level of Consciousness is awake, alert, obeys commands. Respiratory: No deficits noted. Airway is patent Respiratory effort is even, unlabored, Respiratory pattern is regular, symmetrical. GI: Abdomen is flat, non- distended g-tube present. Derm: Skin is pink, warm & dry. Musculoskeletal: Range of motion intact in all extremities. Historical: - Allergies: no known allergies; - Home Meds: 1. aspirin 81 mg Oral tab 1 tab once daily (Last dose: 07/15/2016 06:00) 2. Carafate 100 mg/mL Oral susp 10 mL 4 times per day (Last dose: 07/15/2016 06:00) 3. cyanocobalamin (vitamin B-12) 1,000 mcg oral tab every 3 days DUE TOMORROW 4. multivitamin Oral tab 1 tab daily (Last dose: 07/15/2016 09:00) 5. omeprazole 40 mg Oral cpDR 1 cap 2 times per day (Last dose: 07/15/2016 09:00) 6. oxycodone 20 mg Oral tab 1 tab every 4 hours (Last dose: 07/15/2016 04:00) 7. Oysco-500 500 mg calcium (1,250 mg) oral tab twice a day (Last dose: 07/15/2016 06:00) 8. senna 8.6 mg oral tab 1 tabs twice a day (Last dose: 07/15/2016 06:00) 9. Tab-A-Christian oral tab twice a day (Last dose: 07/15/2016 09:00) 10. vitamin D-3 1000 units daily (Last dose: 07/15/2016 09:00) 11. zinc gluconate 50 mg oral tab daily (Last dose: 07/15/2016 09:00) - PMHx: c diff; chronic abdominal pain; esophageal strictures; GERD; opiate abuse; opiate dependency; - PSHx: g-tube; Appendectomy; Cholecystectomy; Hernia repair; REPAIR LACERATED TENDON RIGHT UPPER ARM; GASTRIC BYPASS; BACK SURGERY---FRACTURE LOWER BACK; - Social history: Smoking status: Patient uses tobacco products, light tobacco smoker. No barriers to communication noted, The patient speaks fluent Chinese. - Family history: Not pertinent. - : The pt / caregiver states he / she is not on anticoagulants. Home medication list is obtained from the patient, [employer] import data. - Exposure Risk Screening:: None identified. Screenin:46 Screening information is obtained from the patient. Fall risk: No risks identified. ms2 uses a cane. Assistance ADL's: requires no assistance with activities of daily living. Abuse/DV Screen: The patient / caregiver reports he/she is: not in a situation that causes fear, pain or injury. Nutritional screening: uses tube feedings ---Jevidy 1. Advance Directives: Currently, there is no health care proxy. There is no active DNR order. There is no living will. There is no Power of Finish Remover. Advance directive information has not previously been placed in an [facility] medical record. Further advance directive information is declined. home support is adequate. Assessment: 11:48 General: Appears in no apparent distress, Behavior is cooperative. Pain: Pain currently ms2 is 10 out of 10 on a pain scale. Neurological: Level of Consciousness is awake, alert, obeys commands. Respiratory: No deficits noted. Airway is patent Respiratory effort is even, unlabored, Respiratory pattern is regular, symmetrical. GI: Abdomen is flat, non- distended Bowel sounds present X 4 quads. Abd is soft X 4 quads Abd is tender to palpation pain about g-tube site. Derm: Skin is pink, warm & dry. Musculoskeletal: Range of motion intact in all extremities. 12:53 General: Appears in no apparent distress. Pain: Location: abdomen Pain currently is 10 mk4 out of 10 on a pain scale. Neurological: Level of Consciousness is awake, alert. Derm: Skin is intact, Skin is pale. 13:28 General: Appears distressed, uncomfortable. General: transported to CT scan, inserted mk4 15 ml Gastrografin via g tube , pt raghav poorly, swung arm at me and told me to stop that it hurt. Pain: Location: abdomen Pain currently is 10 out of 10 on a pain scale. 13:39 Adult Sepsis Screening: The patient does not have new or worsening altered mentation. mk4 Patient's respiratory rate is less than 22. Systolic blood pressure is greater than 100. Patient has a qSOFA score of 0- Negative Sepsis Screen. 14:38 General: Appears distressed, uncomfortable, Behavior is cooperative. Pain: Location: mk4 abdomen Pain currently is 10 out of 10 on a pain scale. Vital Signs: 11:39 BP 94 / 63; Pulse 59; Resp 16; Temp 96.9(O); Pulse Ox 100% on R/A; Weight 56.25 kg (R); [facility] Height 5 ft. 11 in. (180.34 cm) (R); Pain 10/10; 13:15 BP 110 / 60; Pulse 62; Resp 16; Pulse Ox 99% on R/A; mk4 14:28 BP 93 / 59; Pulse 54; Resp 18; Temp 97.3; Pulse Ox 100% on R/A; Pain 10/10; jml1 11:39 Body Mass Index 17.29 (56.25 kg, 180.34 cm) [facility] Vitals: 11:39 Log In Time N/A - ambulance arrival. [facility] ED Course: 11:25 Patient visited by Jose Smith PCA. jrd 11:25 Patient moved to Waiting jrd 11:26 Cedric Marrero is Private Physician. jrd 11:26 Patient visited by Jose Smith PCA. jrd 11:26 Patient moved to I8 / 16 jrd 11:31 Triage Initiated ms2 12:06 Patient visited by Ti Marquez. jml1 12:21 Parvez Cervantes FNP is PHCP. ke 12:21 Patient visited by Parvez Cervantes FNP. ke 12:21 Patient visited by Parvez Cervantes FNP. ke 12:42 Amylase Sent. mk4 12:42 Basic Metabolic Profile Sent. mk4 12:42 CBC with Diff Sent. mk4 12:42 Lipase Sent. mk4 12:42 Liver Profile Sent. mk4 12:42 Prothrombin Time Profile\E\INR Sent. mk4 12:48 Patient visited by Parvez Cervantes FNP. ke 12:53 The patient / caregiver is instructed regarding the plan of care and ED course. mk4 12:53 Inserted saline lock: 20 gauge in left antecubital area and blood collected. mk4 13:19 Patient visited by Jackeline Werner RN. mk4 13:59 Patient visited by Parvez Cervantes FNP. ke 13:59 CT ABD & PELVIS: Oral Contrast Only: some in g tube to verivy placement. not oral EDMS Returned. 14:04 Cedric Marrero is Referral Physician. ke 14:30 Patient visited by Ti Marquez. jml1 14:38 Discontinued IV lock intact, bleeding controlled, pressure dressing applied. mk4 14:40 No procedures done that require assistance. mk4 07/16 13:53 T-Sheet-- Draft Copy was scanned into [employer] and attached to record. gb Administered Medications: Discontinued: NS 0.9% 1000 ml IV at 100 mL/hr continuous 07/15 12:51 Drug: NS 0.9% 1000 ml [sodium chloride 0.9 % intravenous solution] Route: IV; Rate: 100 mk4 mL/hr; Site: left antecubital; 14:48 Follow up: IV Status: Completed infusion; Infusion discontinued; IV Intake: 400ml mk4 12:51 Drug: morphine 4 mg [morphine 4 mg/mL intravenous cartridge (1 mL)] Route: IVP; Site: [facility] left antecubital; 13:15 Follow up: Response: Pain is unchanged, physician notified 4 12:52 Drug: Ondansetron 4 mg Route: IVP; Site: left antecubital; 4 14:49 Follow up: Response: Nausea is unchanged 4 13:20 Drug: morphine 4 mg [morphine 4 mg/mL intravenous cartridge (1 mL)] Route: IVP; Site: [facility] left antecubital; 13:30 Follow up: Response: Pain is unchanged, physician notified 4 Intake: 14:48 IV: 400.00ml; Total: 400.00ml. [facility] Order Results: Lab Order: Amylase; SPEC'M 07/15/16 12:39 Test: AMYLASE; Value: 37; Range: 25-115; Units: U/L; Status: F Lab Order: Basic Metabolic Profile; SPEC'M 07/15/16 12:39 Test: GLUCOSE, FASTING; Value: 93; Range: 70-105; Units: MG/DL; Status: F Test: BLOOD UREA NITROGEN; Value: 15; Range: 7-18; Units: MG/DL; Status: F Test: CREATININE FOR GFR; Value: 0.56; Range: 0.70-1.30; Abnormal: Below low normal; Units: MG/DL; Status: F Test: GLOMERULAR FILTRATION RATE; Value: > 60.0; Range: >56; Status: F Test: SODIUM LEVEL; Value: 141; Range: 136-145; Units: MEQ/L; Status: F Test: POTASSIUM SERUM; Value: 4.3; Range: 3.5-5.1; Units: MEQ/L; Status: F Test: CHLORIDE LEVEL; Value: 105; Range: 98-107; Units: MEQ/L; Status: F Test: CARBON DIOXIDE LEVEL; Value: 30; Range: 21-32; Units: MEQ/L; Status: F Test: ANION GAP; Value: 6; Range: 8-16; Abnormal: Below low normal; Units: MEQ/L; Status: F Test: CALCIUM LEVEL; Value: 8.7; Range: 8.5-10.1; Units: MG/DL; Status: F Test Note: ; Units are mL/min/1.73 m2 Chronic Kidney Disease Staging per NKF: Stage I & II GFR >=60 Normal to Mildly Decreased Stage III GFR 30-59 Moderately Decreased Stage IV GFR 15-29 Severely Decreased Stage V GFR <15 Very Little GFR Left ESRD GFR <15 on NEWSP[employer]ERTER Lab Order: CBC with Diff; MARCELLA 07/15/16 12:39 Test: WHITE BLOOD COUNT; Value: 3.6; Range: 4.0-10.0; Abnormal: Below low normal; Units: K/mm3; Status: F Test: RED BLOOD COUNT; Value: 3.69; Range: 4.30-6.10; Abnormal: Below low normal; Units: M/mm3; Status: F Test: HEMOGLOBIN; Value: 11.3; Range: 14.0-18.0; Abnormal: Below low normal; Units: g/dl; Status: F Test: HEMATOCRIT; Value: 34.5; Range: 42.0-52.0; Abnormal: Below low normal; Units: %; Status: F Test: MEAN CORPUSCULAR VOLUME; Value: 93.4; Range: 80.0-96.0; Units: fl; Status: F Test: MEAN CORPUSCULAR HEMOGLOBIN; Value: 30.6; Range: 27.0-33.0; Units: pg; Status: F Test: MEAN CORPUSCULAR HGB CONC; Value: 32.8; Range: 32.0-36.5; Units: g/dl; Status: F Test: RED CELL DISTRIBUTION WIDTH; Value: 13.9; Range: 11.5-14.5; Units: %; Status: F Test: PLATELET COUNT, AUTOMATED; Value: 240; Range: 150-450; Units: k/mm3; Status: F Test: NEUTROPHILS %; Value: 71.8; Range: 36.0-66.0; Abnormal: Above high normal; Units: %; Status: F Test: LYMPH %; Value: 20.3; Range: 24.0-44.0; Abnormal: Below low normal; Units: %; Status: F Test: MONO %; Value: 5.4; Range: 0.0-5.0; Abnormal: Above high normal; Units: %; Status: F Test: EOS %; Value: 0.7; Range: 0.0-3.0; Units: %; Status: F Test: BASO %; Value: 0.3; Range: 0.0-1.0; Units: %; Status: F Test: LARGE UNSTAINED CELL %; Value: 1.5; Range: 0.0-4.0; Units: %; Status: F Test: NEUTROPHILS #; Value: 2.6; Range: 1.8-7.7; Units: K/mm3; Status: F Test: LYMPH #; Value: 0.8; Range: 1.5-4.5; Abnormal: Below low normal; Units: K/mm3; Status: F Test: MONO #; Value: 0.2; Range: 0.0-0.8; Units: K/mm3; Status: F Test: EOS #; Value: 0.0; Range: 0.0-0.50; Units: K/mm3; Status: F Test: BASO #; Value: 0.0; Range: 0.0-0.2; Units: K/mm3; Status: F Test: LARGE UNSTAINED CELL #; Value: 0.1; Range: 0.0-0.4; Units: K/mm3; Status: F Lab Order: Lipase; SPEC' 07/15/16 12:39 Test: LIPASE; Value: 90; Range: 73-393; Units: U/L; Status: F Lab Order: Liver Profile; SPEC' 07/15/16 12:39 Test: AST/SGOT; Value: 13; Range: 15-37; Abnormal: Below low normal; Units: U/L; Status: F Test: ALT/SGPT; Value: 13; Range: 12-78; Units: U/L; Status: F Test: ALKALINE PHOSPHATASE; Value: 81; Range: 45-117; Units: U/L; Status: F Test: BILIRUBIN,TOTAL; Value: 0.3; Range: 0.2-1.0; Units: MG/DL; Status: F Test: BILIRUBIN,DIRECT; Value: 0.2; Range: 0.0-0.2; Units: MG/DL; Status: F Test: TOTAL PROTEIN; Value: 6.8; Range: 6.4-8.2; Units: GM/DL; Status: F Test: ALBUMIN; Value: 3.1; Range: 3.2-5.2; Abnormal: Below low normal; Units: GM/DL; Status: F Test: ALBUMIN/GLOBULIN RATIO; Value: 0.84; Range: 1.00-1.93; Abnormal: Below low normal; Status: F Lab Order: Prothrombin Time Profile\E\INR; MARCELLA 07/15/16 12:39 Test: PROTHROMBIN TIME; Value: 13.8; Range: 12.3-14.5; Units: SECONDS; Status: F Test: INR; Value: 1.05; Status: F Test Note: ; THERAPUTIC HUMAN INR VALUES INDICATIONS NORMAL RANGES PROPHYLAXIS/TREATMENT OF: VENOUS THROMBOSIS 2.0-3.0 PULMONARY EMBOLISM 2.0-3.0 PREVENTION OF SYSTEMIC EMBOLISM FROM: TISSUE HEART VALVES 2.0-3.0 ACUTE MYOCARDIAL INFARCTION 2.0-3.0 VALVULAR HEART DISEASE 2.0-3.0 ATRIAL FIBRILLATION 2.0-3.0 MECHANICAL VALVES(HIGH RISK) 2.5-3.5 RECURRENT MYOCARDIAL INFARCTION 2.5-3.5 Radiology Order: CT ABD & PELVIS: Oral Contrast Only: some in g tube to verivy placement. not oral Test: CT ABD & PELVIS: Oral Contrast Only: some in g tube to verivy placement. not oral REASON FOR EXAMINATION: post operative; Clinical: Evaluate percutaneous gastrostomy tube.; ; Comparison: 06/23/2016.; ; Findings:; A percutaneous gastrostomy tube extends through the midline anterior abdominal; wall to the right of midline and appears to be intraluminal with small amount of; intraluminal contrast identified adjacent to the peg tube. High-density contrast; material in the mid abdomen extending to the left upper quadrant is unchanged; compared to prior examination and may be related to prior surgery. A small; portion of suspected old catheter is identified within this portion of the; presumed residual stomach (images 23 - 30). The small and large bowel is without; obstruction.; ; Liver, spleen, pancreas, bilateral adrenal glands and left kidney are normal for; noncontrast examination. Right kidney in demonstrates 10 mm nonobstructing; calculus. The patient is status post cholecystectomy. Pelvis demonstrates; normal bladder and moderately prominent prostate gland as well as small amount of; free fluid in the pelvis of uncertain etiology possibly related to recent; surgery. Skeletal structures demonstrate prior posterior fusion and laminectomy.; Lung bases are clear.; ; Impression:; 1. New percutaneous gastrostomy tube extends into the enteric lumen without; extravasation.; 2. Small amount of free fluid in the pelvis possibly related to recent; procedure. 3. No free air or bowel obstruction.; 4. Chronic changes as described above.; ; ; Signed by; Esdras Cruz MD 07/15/2016 01:48 P; Outcome: 14:05 Discharge ordered by Provider. 14:38 Discharge Assessment: Patient awake, alert and oriented x 3. No cognitive and/or mk4 functional deficits noted. Patient verbalized understanding of disposition instructions. Patient awake and alert. Discharge Assessment: patient administered narcotics - yes. Pt provided with safe discharge. The following High Risk Discharge criteria are identified: None. Condition: good Condition: stable. CT Study completed. Property sent home with patient. 14:43 Patient left the ED. 4 Signatures: Dispatcher [employer] EDMS Elvis Torres,RN RN ms2 Bekah Friedman RN RN Anika Quinones, Larry Reg Parvez Cervantes, GOLD WHEEL BLOCKER AND POLISHER GOLD WHEEL BLOCKER AND POLISHER Ti Byrdl1 Jackeline Werner, RN RN mk4 Jose Smith, JAVON DRUG PURCHASER jrd Corrections: (The following items were deleted from the chart) 13:40 13:15 BP 110 / 60; Pulse 62bpm; Resp 16bpm; mk4 mk4 Chart Complete MTDD
== END 2016-07-15 14:43 | disposition home or self-care (01) ==
LOC: M ED 11:24
DX: G89.29 Other chronic pain (principal); R10.9 Unspecified abdominal pain; R11.10 Vomiting, unspecified; Z93.1 Gastrostomy status; K21.9 Gastro-esophageal reflux disease without esophagitis; K22.2 Esophageal obstruction; Z87.19 Personal history of other diseases of the digestive system; Z79.899 Other long term (current) drug therapy; Z79.82 Long term (current) use of aspirin; Z98.84 Bariatric surgery status
CPT/HCPCS: 36415; 74176; 80048; 80076; 82150; 83690; 85025; 85610; 96361; 96374; 96375; 99284; J2405; Q9963

== ENCOUNTER 2016-07-15 22:56 | Inpatient (IN) | payer OTHER, MEDICARE ==
[~2016-07-15] VITALS: Ht 180.3 cm; Wt 55.8 kg
[2016-07-15] MEDS ORDERED: ONDANSETRON 4MG/2ML VIAL (J2405) As Ordered ONE (23:20)
[2016-07-15 23:39] LABS: MEAN CORPUSCULAR HEMOGLOBIN 30.6 pg (27.0-33.0); MEAN CORPUSCULAR HGB CONC 32.9 g/dl (32.0-36.5); MEAN CORPUSCULAR VOLUME 93.3 fl (80.0-96.0); PLATELET COUNT, AUTOMATED 254 k/mm3 (150-450); RED CELL DISTRIBUTION WIDTH 13.9 % (11.5-14.5); WHITE BLOOD COUNT 5.5 K/mm3 (4.0-10.0)
[2016-07-16 00:02] LABS: ALBUMIN 3.2 GM/DL (3.2-5.2); ALKALINE PHOSPHATASE 88 U/L (45-117); ALT/SGPT 13 U/L (12-78); ANION GAP 5 MEQ/L (8-16); AST/SGOT 15 U/L (15-37); BILIRUBIN,DIRECT 0.2 MG/DL (0.0-0.2); BILIRUBIN,TOTAL 0.5 MG/DL (0.2-1.0); BLOOD UREA NITROGEN 13 MG/DL (7-18); CALCIUM LEVEL 8.3 MG/DL (8.5-10.1); CARBON DIOXIDE LEVEL 29 MEQ/L (21-32); CHLORIDE LEVEL 106 MEQ/L (98-107); GLOMERULAR FILTRATION RATE > 60.0 (>56); GLUCOSE, FASTING 88 MG/DL (70-105); POTASSIUM SERUM 3.7 MEQ/L (3.5-5.1); SODIUM LEVEL 140 MEQ/L (136-145); TOTAL PROTEIN 7.8 GM/DL (6.4-8.2)
--- NOTE | 2016-07-16 00:10 | REPUSA ---
Clinical statement: Pain. Comparison: CT, 05/29/2016. Findings: 3 views of the chest and abdomen were obtained. There is a percutaneous gastrostomy tube no meghana, with the catheter terminating in the region of the stomach. The mediastinum and cardiac silhouet te are within normal limits. The lungs are clear. No pleural effusion or pneumothorax is seen. A nono bstructive bowel gas pattern is noted. There is no free air. There are no abnormal masses or calcific ations. The osseous structures and soft tissues are unremarkable. Lumbosacral fusion changes are inta ct. Surgical clips are seen in the right upper quadrant. Impression: No acute finding.
[2016-07-16] MEDS ORDERED: oxyCODONE 10 MG CR TAB As Ordered ONE (00:26)
[2016-07-16] MEDS ORDERED: MORPHINE 2 MG/ML 1ML SYRINGE As Ordered ONE ×2 (00:52→01:57)
[2016-07-16] MEDS ORDERED: ACETAMINOPHEN TAB 650MG DOSE (2X325MG) PO PRN (01:30)
[2016-07-16] MEDS ORDERED: PERCOCET 5MG/325MG TAB PO PRN ×2 (01:30)
[2016-07-16] MEDS ORDERED: SUCRALFATE 1 GM TAB PO ONE (01:30)
[2016-07-16] MEDS ORDERED: PANTOPRAZOLE 40MG INJ (PROTONIX) (C9113) IV ONE (01:30)
[2016-07-16] MEDS ORDERED: ONDANSETRON 4MG/2ML VIAL (J2405) IV PRN (01:30)
[2016-07-16] MEDS ORDERED: GI COCKTAIL 50ML BTL(HYOSCYAMINE/MAALOX/LIDOCAINE VISCOUS)(1:3:1) PO ONE (01:30)
[2016-07-16] MEDS ORDERED: OMEP40CA2 PO (01:42)
[2016-07-16] MEDS ORDERED: VITA500T3 PO (01:42)
[2016-07-16] MEDS ORDERED: MIRT45TA PO (01:42)
[2016-07-16] MEDS ORDERED: VITACHTA PO (01:42)
[2016-07-16 01:46] LABS: BASO % 0.5 % (0.0-1.0); EOS # 0.1 K/mm3 (0.0-0.50); EOS % 1.2 % (0.0-3.0); LARGE UNSTAINED CELL # 0.1 K/mm3 (0.0-0.4); LARGE UNSTAINED CELL % 1.7 % (0.0-4.0); LYMPH # 1.3 K/mm3 (1.5-4.5); LYMPH % 22.1 % (24.0-44.0); MONO # 0.3 K/mm3 (0.0-0.8); MONO % 5.8 % (0.0-5.0); NEUTROPHILS # 3.8 K/mm3 (1.8-7.7); NEUTROPHILS % 68.7 % (36.0-66.0)
[2016-07-16 01:48] LABS: AMPHETAMINES LEVEL URINE NEGATIVE (NEGATIVE); BENZODIAZEPINES URINE NEGATIVE (NEGATIVE); COCAINE METABOLITE URINE NEGATIVE (NEGATIVE); CONTROL LINE INT CTR LINE PRESENT; METHADONE URINE NEGATIVE (NEGATIVE); OPIATES URINE POSITIVE (NEGATIVE); TRICYCLIC ANTIDEPRESS URINE NEGATIVE (NEGATIVE)
[2016-07-16 02:08] LABS: ERYTHROCYTE SEDIMENTATION RATE 28 mm/hr (0-20)
[2016-07-16] MEDS ORDERED: PANTOPRAZOLE 40MG INJ (PROTONIX) (C9113) As Ordered ONE (02:18)
[2016-07-16 03:30] VITALS: BP 90/52
--- NOTE | 2016-07-16 03:46 | EDDOCDS ---
Physician Documentation [facility] Name: Edwar Stokes Age: 51 yrs Sex: Male : 1965 Arrival Date: 07/15/2016 Time: 22:56 Bed 9 Private MD: Cedric Marrero A. Disposition: 07/16/16 01:26 Hospitalization ordered by Gloria Aiken for Inpatient Admission. Preliminary diagnosis is Generalized abdominal pain. - Bed requested for 5 Valdes. - Status is Inpatient Admission. js15 - Condition is Stable. - Problem is new. - Symptoms are unchanged. Historical: - Allergies: no known allergies; - Home Meds: 1. aspirin 81 mg Oral tab 1 tab once daily 2. Carafate 100 mg/mL Oral susp 10 mL 4 times per day 3. cyanocobalamin (vitamin B-12) 1,000 mcg oral tab every 3 days DUE TOMORROW 4. multivitamin Oral tab 1 tab daily 5. omeprazole 40 mg Oral cpDR 1 cap 2 times per day 6. oxycodone 20 mg Oral tab 1 tab every 4 hours 7. Oysco-500 500 mg calcium (1,250 mg) oral tab twice a day 8. senna 8.6 mg oral tab 1 tabs twice a day 9. Tab-A-Christian oral tab twice a day 10. vitamin D-3 1000 units daily 11. zinc gluconate 50 mg oral tab daily - PMHx: c diff; chronic abdominal pain; esophageal strictures; GERD; opiate abuse; opiate dependency; - PSHx: g-tube; Appendectomy; Cholecystectomy; Hernia repair; REPAIR LACERATED TENDON RIGHT UPPER ARM; Gastric Bypass; BACK SURGERY---FRACTURE LOWER BACK; - Social history: Smoking status: Patient uses tobacco products, current every day smoker. No barriers to communication noted, The patient speaks fluent [place]i, Speaks appropriately for age. - Family history: Not pertinent. - : The pt / caregiver states he / she is not on anticoagulants. Home medication list is obtained from the patient. - Exposure Risk Screening:: None identified. Vital Signs: 07/15 22:57 BP 88 / 68; Pulse 70; Resp 18 S; Temp 97.8(O); Pulse Ox 100% on R/A; Weight 55.79 kg / gr2 123 lbs (R); Height 5 ft. 11 in. (180.34 cm) (R); Pain 9/10; 23:17 BP 100 / 63 (auto/); sls1 23:19 Pulse 66 MON; Pulse Ox 99% ; sls1 23:32 BP 109 / 72 (auto/); js15 23:32 Pulse 66 MON; Pulse Ox 97% ; js15 07/16 00:29 BP 98 / 69 (auto/); js15 00:32 Pulse 58 MON; Pulse Ox 100% ; js15 00:48 BP 102 / 78 RA Supine (man/reg); rs6 01:00 BP 103 / 69 (auto/); js15 01:00 Pulse 56 MON; Pulse Ox 100% ; js15 01:15 BP 97 / 60 (auto/); js15 01:15 Pulse 58 MON; Pulse Ox 100% ; js15 01:30 BP 100 / 67 (auto/); js15 01:30 Pulse 64 MON; Pulse Ox 99% ; js15 01:45 BP 107 / 75 (auto/); js15 01:45 Pulse 64 MON; Pulse Ox 100% ; js15 02:00 BP 100 / 70 (auto/); js15 02:01 Pulse 60 MON; Pulse Ox 100% ; js15 02:23 BP 98 / 66 (auto/); js15 02:24 Pulse 58 MON; Pulse Ox 100% ; js15 02:45 BP 98 / 68 (auto/); js15 02:45 Pulse 58 MON; Pulse Ox 100% ; js15 02:50 BP 102 / 72 RA Supine (auto/lg); Pulse 61; Resp 16; Temp 97.4(O); Pulse Ox 100% on R/A; rs6 Pain 9/10; 03:00 BP 93 / 65 (auto/); js15 03:00 Pulse 60 MON; Pulse Ox 100% ; js15 03:08 BP 95 / 65 (auto/); js15 03:09 Pulse 62 MON; Pulse Ox 100% ; js15 03:18 BP 97 / 68 (auto/); js15 03:19 Pulse 56 MON; Pulse Ox 100% ; js15 03:23 BP 95 / 65 (auto/); js15 03:24 Pulse 56 MON; Pulse Ox 100% ; js15 07/15 22:57 Body Mass Index 17.15 (55.79 kg, 180.34 cm) gr2 MDM: 07/15 23:13 IV Saline Lock ordered. ke 23:13 NS 0.9% 1000 ml IV at bolus once ordered. ke 23:14 Ondansetron 4 mg IVP once ordered. ke 23:14 BMP Ordered. EDMS 23:14 CBC Ordered. EDMS 23:14 UA Ordered. EDMS 23:27 Child Psychometrist/Pulse Ox/q 30 min VS ordered. br1 23:27 Misc. Nursing Order ordered. br1 23:29 Abdomen, Flat\E\Upright,PA Chest Ordered. EDMS 23:29 ECG WITH READING ER PHYS+CARDIAG ordered. EDMS 23:30 LIPASE Ordered. EDMS 23:31 LIVER PROFILE Ordered. EDMS 23:32 TROPONIN Ordered. EDMS 23:45 CBC Reviewed. br1 07/16 00:10 BMP Reviewed. br1 00:10 LIVER PROFILE Reviewed. br1 00:10 LIPASE Reviewed. br1 00:10 TROPONIN Reviewed. br1 00:11 oxyCODONE 20 mg PO once ordered. br1 00:49 morphine 2 mg IVP once ordered. br1 01:02 Financial registration complete. hs2 01:15 BED REQUEST+ADM ordered. EDMS 01:25 Lactic Acid (Jonas tube on ice) Ordered. EDMS 01:26 Misc Senior Risk Manager Order ordered. [facility]1 [facility] complete. kb5 01:31 LACTIC ACID LEVEL, LACTATE Ordered. EDMS 01:31 DRUG EVAL TOXICOLOGY ED ONLY Ordered. EDMS 01:33 Admission / Observation Status ordered. EDMS 01:33 NPO DIET ordered. EDMS 01:36 [facility] [place] was scanned into [email or web address] and attached to record. hs2 01:36 C REACTIVE PROTEIN QUANTITATIV Ordered. EDMS 02:05 morphine 2 mg IVP once ordered. js15 02:25 pantoprazole 40 mg IV at bolus once ordered. js15 02:25 NS 0.9% 1000 ml IV at 100 mL/hr continuous ordered. js15 03:44 BMP Reviewed. br1 03:44 CBC Reviewed. br1 03:44 UA Reviewed. br1 03:44 LIVER PROFILE Reviewed. br1 03:44 DRUG EVAL TOXICOLOGY ED ONLY Reviewed. br1 03:44 DIFFERENTIAL Reviewed. br1 03:44 ERYTHROCYTE SEDIMENTATION RATE Reviewed. br1 03:44 PREALBUMIN Reviewed. br1 03:44 LIPASE Reviewed. br1 03:44 TROPONIN Reviewed. br1 03:44 Lactic Acid (Jonas tube on ice) Reviewed. br1 03:44 C REACTIVE PROTEIN QUANTITATIV Reviewed. br1 03:44 Abdomen, Flat\E\Upright,PA Chest Reviewed. br1 Administered Medications: 07/15 23:34 Drug: NS 0.9% 1000 ml [sodium chloride 0.9 % intravenous solution] Route: IV; Rate: nn1 bolus; Site: left forearm; 23:34 Drug: Ondansetron 4 mg [ondansetron HCl 2 mg/mL intravenous solution (2 mL)] Route: nn1 IVP; Site: left forearm; 07/16 00:34 Drug: oxyCODONE 20 mg [oxycodone 5 mg tablet (4 tabs)] Route: PO; js15 00:56 Drug: morphine 2 mg [morphine 2 mg/mL intravenous cartridge (1 mL)] Route: IVP; Site: js15 left forearm; 02:05 Drug: morphine 2 mg [morphine 2 mg/mL intravenous cartridge (1 mL)] Route: IVP; Site: js15 left forearm; 02:26 Drug: pantoprazole 40 mg [pantoprazole 40 mg intravenous solution] Route: IV; Rate: js15 bolus; Site: left forearm; 02:26 Drug: NS 0.9% 1000 ml [sodium chloride 0.9 % intravenous solution] Route: IV; Rate: 100 js15 mL/hr; Site: left forearm; Signatures: Dispatcher [employer] EDMS Karely Leslie, RN RN daq Parvez Cervantes, IT APPLICATIONS MANAGER IT APPLICATIONS MANAGER Carlos Caputo, TOP SCREW TOP SCREW kb5 Juan Pablo Hitchcock MD MD br1 Fany Mcgee RN RN sls1 Elba Pete,KRISTOFER RN js15 Ela Espino, Reg Reg hs2 Walter Florian RN nn1 The chart was reviewed and I authenticate all verbal orders and agree with the evaluation and treatment provided.Corrections: (The following items were deleted from the chart) 07/15 23:30 23:27 LIVER PROFILE+LAB ordered. EDMS EDMS 23:30 23:27 LIPASE+LAB ordered. EDMS EDMS 23:32 23:29 TROPONIN+LAB ordered. EDMS EDMS 07/16 01:34 01:25 DRUG EVAL TOXICOLOGY ED ONLY+LAB ordered. EDMS EDMS 01:36 01:31 BASIC METABOLIC PROFILE ordered. EDMS EDMS 01:37 01:31 LIVER PROFILE ordered. EDMS EDMS 01:37 01:31 C REACTIVE PROTEIN QUANTITATIV ordered. EDMS EDMS 01:41 01:30 CBC WITH DIFFERENTIAL ordered. EDMS EDMS 01:41 01:31 ERYTHROCYTE SEDIMENTATION RATE ordered. EDMS EDMS Attachments: 01:36 [facility] [place] hs2 MTDD
--- NOTE | 2016-07-16 03:46 | EDDOCDS ---
Nurse's Notes [facility] Name: Edwar Stokes Age: 51 yrs Sex: Male : 1965 Arrival Date: 07/15/2016 Time: 22:56 Bed 9 Private MD: Cedric Marrero A. Diagnosis: Generalized abdominal pain Presentation: 07/15 23:09 Presenting complaint: Patient states: seen here this morning for abdominal pain, states sls1 has been sick 5 times since he left, called his doctor and told to come here. Adult Sepsis Screening: The patient does not have new or worsening altered mentation. Patient's respiratory rate is less than 22. Systolic blood pressure is greater than 100. Patient has a qSOFA score of 0- Negative Sepsis Screen. Suicide/Homicide risk assessment- the patient denies having any suicidal and/or homicidal ideations and does not present with any other emotional, behavioral or mental health complaints. Status: Patient is not a social services coordinator or dependent. Transition of care: patient was not received from another setting of care. 23:09 Acuity: ANA Level 3 sls1 23:09 Method Of Arrival: Wheelchair [facility] Triage Assessment: 23:11 General: Appears ill. Pain: Location: abdomen Pain currently is 10 out of 10 on a pain sls1 scale. Pt Declines HIV testing. Neurological: No deficits noted. Respiratory: No deficits noted. GI: Reports lower abdominal pain, upper abdominal pain, nausea, vomiting. Historical: - Allergies: no known allergies; - Home Meds: 1. aspirin 81 mg Oral tab 1 tab once daily 2. Carafate 100 mg/mL Oral susp 10 mL 4 times per day 3. cyanocobalamin (vitamin B-12) 1,000 mcg oral tab every 3 days DUE TOMORROW 4. multivitamin Oral tab 1 tab daily 5. omeprazole 40 mg Oral cpDR 1 cap 2 times per day 6. oxycodone 20 mg Oral tab 1 tab every 4 hours 7. Oysco-500 500 mg calcium (1,250 mg) oral tab twice a day 8. senna 8.6 mg oral tab 1 tabs twice a day 9. Tab-A-Christian oral tab twice a day 10. vitamin D-3 1000 units daily 11. zinc gluconate 50 mg oral tab daily - PMHx: c diff; chronic abdominal pain; esophageal strictures; GERD; opiate abuse; opiate dependency; - PSHx: g-tube; Appendectomy; Cholecystectomy; Hernia repair; REPAIR LACERATED TENDON RIGHT UPPER ARM; Gastric Bypass; BACK SURGERY---FRACTURE LOWER BACK; - Social history: Smoking status: Patient uses tobacco products, current every day smoker. No barriers to communication noted, The patient speaks fluent Niuean, Speaks appropriately for age. - Family history: Not pertinent. - : The pt / caregiver states he / she is not on anticoagulants. Home medication list is obtained from the patient. - Exposure Risk Screening:: None identified. Screenin/22 03:29 Screening information is obtained from the patient. Fall risk: No risks identified. js15 Assistance ADL's: requires no assistance with activities of daily living. Abuse/DV Screen: The patient / caregiver reports he/she is: not in a situation that causes fear, pain or injury. Nutritional screening: pt states "I barely ever eat but that's normal for me". Advance Directives: There is no active DNR order. home support is adequate. Assessment: 07/15 23:30 General: Appears uncomfortable, Behavior is appropriate for age, cooperative. Pain: js15 Location: abdomen Pain currently is 9 out of 10 on a pain scale. Neurological: Level of Consciousness is awake, alert, obeys commands, Oriented to person, place, time. Respiratory: Airway is patent Respiratory effort is even, unlabored, Respiratory pattern is regular, symmetrical, Breath sounds are clear bilaterally. GI: Abdomen is non- distended Bowel sounds present X 4 quads. Abd is tender to palpation in abdomen diffusely. Derm: Skin is dry, Skin is pale, Skin temperature is cool. 07/16 00:30 Reassessment: Pt resting on stretcher, reports pain in abdomen; respirations even and js15 unlabored; skin pale, warm, dry. 01:30 Reassessment: Patient appears in no apparent distress at this time. Pt states he still js15 has pain in abdomen; provider aware; respirations even and unlabored; skin pale, warm, dry. 02:30 General: Appears in no apparent distress, Behavior is appropriate for age, cooperative. js15 Pain: Location: abdomen Pain currently is 7 out of 10 on a pain scale. Neurological: Level of Consciousness is awake, alert, obeys commands, Oriented to person, place, time. Respiratory: Airway is patent Respiratory effort is even, unlabored, Respiratory pattern is regular, symmetrical. Derm: Skin is dry, Skin is pale, Skin temperature is warm. 03:33 Reassessment: Patient appears in no apparent distress at this time. Patient states js15 symptoms have improved. Pt resting quietly on stretcher, watching tv; respirations even and unlabored; skin pale, warm, dry. Vital Signs: 07/15 22:57 BP 88 / 68; Pulse 70; Resp 18 S; Temp 97.8(O); Pulse Ox 100% on R/A; Weight 55.79 kg gr2 (R); Height 5 ft. 11 in. (180.34 cm) (R); Pain 9/10; 23:17 BP 100 / 63 (auto/); sls1 23:19 Pulse 66 MON; Pulse Ox 99% ; sls1 23:32 BP 109 / 72 (auto/); js15 23:32 Pulse 66 MON; Pulse Ox 97% ; js15 07/16 00:29 BP 98 / 69 (auto/); js15 00:32 Pulse 58 MON; Pulse Ox 100% ; js15 00:48 BP 102 / 78 RA Supine (man/reg); rs6 01:00 BP 103 / 69 (auto/); js15 01:00 Pulse 56 MON; Pulse Ox 100% ; js15 01:15 BP 97 / 60 (auto/); js15 01:15 Pulse 58 MON; Pulse Ox 100% ; js15 01:30 BP 100 / 67 (auto/); js15 01:30 Pulse 64 MON; Pulse Ox 99% ; js15 01:45 BP 107 / 75 (auto/); js15 01:45 Pulse 64 MON; Pulse Ox 100% ; js15 02:00 BP 100 / 70 (auto/); js15 02:01 Pulse 60 MON; Pulse Ox 100% ; js15 02:23 BP 98 / 66 (auto/); js15 02:24 Pulse 58 MON; Pulse Ox 100% ; js15 02:45 BP 98 / 68 (auto/); js15 02:45 Pulse 58 MON; Pulse Ox 100% ; js15 02:50 BP 102 / 72 RA Supine (auto/lg); Pulse 61; Resp 16; Temp 97.4(O); Pulse Ox 100% on R/A; rs6 Pain 9/10; 03:00 BP 93 / 65 (auto/); js15 03:00 Pulse 60 MON; Pulse Ox 100% ; js15 03:08 BP 95 / 65 (auto/); js15 03:09 Pulse 62 MON; Pulse Ox 100% ; js15 03:18 BP 97 / 68 (auto/); js15 03:19 Pulse 56 MON; Pulse Ox 100% ; js15 03:23 BP 95 / 65 (auto/); js15 03:24 Pulse 56 MON; Pulse Ox 100% ; js15 07/15 22:57 Body Mass Index 17.15 (55.79 kg, 180.34 cm) gr2 Vitals: 07/15 22:57 Log In Time: July 15, 2016 at 22:57. gr2 ED Course: 22:57 Patient visited by Huong Mathews. gr2 22:57 Cedric Marrero is Private Physician. gr2 22:57 Patient moved to Waiting gr2 22:59 Patient visited by Huong Mathews. gr2 22:59 Patient moved to Pre RCE gr2 23:10 Triage Initiated sls1 23:11 Patient moved to 9 sls1 23:17 Juan Pablo Hitchcock MD is Attending Physician. br1 23:26 Patient visited by Juan Pablo Hitchcock MD. br1 23:30 The patient / caregiver is instructed regarding the plan of care and ED course. js15 23:31 Patient moved to Radiology lissa 23:34 Inserted saline lock: 20 gauge in left forearm and blood collected. The patient nn1 tolerated the procedure well. 23:35 CBC Sent. nn1 23:35 BMP Sent. nn1 23:39 EKG done. (by ED staff). Reviewed by Juan Pablo Hitchcock MD. rs6 23:40 Patient visited by Iwona Cuello PCA. rs6 23:40 Patient visited by Iwona Cuello PCA. rs6 23:40 Patient moved to 9 rs6 07/16 00:03 Patient moved to Radiology lissa 00:10 Patient moved to 9 lissa 00:25 Patient visited by Elba Pete RN. js15 00:35 Abdomen, Flat\\E\\Upright,PA Chest Returned. EDMS 00:38 UA Sent. js15 00:48 Patient visited by Iwona Cuello PCA. rs6 01:15 Patient visited by Juan Pablo Hitchcock MD. br1 01:26 Gloria Aiken is Hospitalizing Provider. br1 01:36 [facility]MERLY [facility], [facility]1983 Payment Agreement was scanned into [employer] and attached to record. hs2 02:50 Patient visited by Iwona Cuello PCA. rs6 03:30 No procedures done that require assistance. js15 Administered Medications: 07/15 23:34 Drug: NS 0.9% 1000 ml [sodium chloride 0.9 % intravenous solution] Route: IV; Rate: nn1 bolus; Site: left forearm; 23:34 Drug: Ondansetron 4 mg [ondansetron HCl 2 mg/mL intravenous solution (2 mL)] Route: nn1 IVP; Site: left forearm; 07/16 00:34 Drug: oxyCODONE 20 mg [oxycodone 5 mg tablet (4 tabs)] Route: PO; js15 00:56 Drug: morphine 2 mg [morphine 2 mg/mL intravenous cartridge (1 mL)] Route: IVP; Site: js15 left forearm; 02:05 Drug: morphine 2 mg [morphine 2 mg/mL intravenous cartridge (1 mL)] Route: IVP; Site: js15 left forearm; 02:26 Drug: pantoprazole 40 mg [pantoprazole 40 mg intravenous solution] Route: IV; Rate: js15 bolus; Site: left forearm; 02:26 Drug: NS 0.9% 1000 ml [sodium chloride 0.9 % intravenous solution] Route: IV; Rate: 100 js15 mL/hr; Site: left forearm; Order Results: Lab Order: WESLEY; SPEC'M 07/15/16 23:32 Test: GLUCOSE, FASTING; Value: 88; Range: 70-105; Units: MG/DL; Status: F Test: BLOOD UREA NITROGEN; Value: 13; Range: 7-18; Units: MG/DL; Status: F Test: CREATININE FOR GFR; Value: 0.70; Range: 0.70-1.30; Units: MG/DL; Status: F Test: GLOMERULAR FILTRATION RATE; Value: > 60.0; Range: >56; Status: F Test: SODIUM LEVEL; Value: 140; Range: 136-145; Units: MEQ/L; Status: F Test: POTASSIUM SERUM; Value: 3.7; Range: 3.5-5.1; Units: MEQ/L; Status: F Test: CHLORIDE LEVEL; Value: 106; Range: 98-107; Units: MEQ/L; Status: F Test: CARBON DIOXIDE LEVEL; Value: 29; Range: 21-32; Units: MEQ/L; Status: F Test: ANION GAP; Value: 5; Range: 8-16; Abnormal: Below low normal; Units: MEQ/L; Status: F Test: CALCIUM LEVEL; Value: 8.3; Range: 8.5-10.1; Abnormal: Below low normal; Units: MG/DL; Status: F Test Note: ; Units are mL/min/1.73 m2 Chronic Kidney Disease Staging per NKF: Stage I & II GFR >=60 Normal to Mildly Decreased Stage III GFR 30-59 Moderately Decreased Stage IV GFR 15-29 Severely Decreased Stage V GFR <15 Very Little GFR Left ESRD GFR <15 on FINISHER HOT STRIP Lab Order: CBC; [facility] 07/15/16 23:32 Test: WHITE BLOOD COUNT; Value: 5.5; Range: 4.0-10.0; Units: K/mm3; Status: F Test: RED BLOOD COUNT; Value: 3.87; Range: 4.30-6.10; Abnormal: Below low normal; Units: M/mm3; Status: F Test: HEMOGLOBIN; Value: 11.9; Range: 14.0-18.0; Abnormal: Below low normal; Units: g/dl; Status: F Test: HEMATOCRIT; Value: 36.1; Range: 42.0-52.0; Abnormal: Below low normal; Units: %; Status: F Test: MEAN CORPUSCULAR VOLUME; Value: 93.3; Range: 80.0-96.0; Units: fl; Status: F Test: MEAN CORPUSCULAR HEMOGLOBIN; Value: 30.6; Range: 27.0-33.0; Units: pg; Status: F Test: MEAN CORPUSCULAR HGB CONC; Value: 32.9; Range: 32.0-36.5; Units: g/dl; Status: F Test: RED CELL DISTRIBUTION WIDTH; Value: 13.9; Range: 11.5-14.5; Units: %; Status: F Test: PLATELET COUNT, AUTOMATED; Value: 254; Range: 150-450; Units: k/mm3; Status: F Lab Order: UA; SPEC'M 07/16/16 00:35 Test: APPEARANCE, URINE; Value: HAZY; Range: CLEAR; Status: F Test: COLOR, URINE; Value: ALLEGRA; Range: YELLOW; Status: F Test: PH,URINE; Value: 5.0; Range: 5.0-9.0; Units: UNITS; Status: F Test: SPECIFIC GRAVITY URINE AUTO; Value: 1.039; Range: 1.002-1.035; Status: F Test: PROTEIN, URINE AUTO; Value: 1+; Range: NEGATIVE; Abnormal: Above high normal; Units: mg/dL; Status: F Test: GLUCOSE, URINE (UA) AUTO; Value: NEGATIVE; Range: NEGATIVE; Units: mg/dL; Status: F Test: KETONE, URINE AUTO; Value: TRACE; Range: NEGATIVE; Abnormal: Above high normal; Units: mg/dL; Status: F Test: UROBILINOGEN, URINE AUTO; Value: 4.0; Range: 0.0-2.0; Abnormal: Above high normal; Units: mg/dL; Status: F Test: BILIRUBIN, URINE AUTO; Value: 1+; Range: NEGATIVE; Abnormal: Above high normal; Status: F Test: NITRITE, URINE AUTO; Value: NEGATIVE; Range: NEGATIVE; Status: F Test: LEUKOCYTE ESTERASE, URINE AUTO; Value: NEGATIVE; Range: NEGATIVE; Status: F Test: BLOOD, URINE BLOOD; Value: NEGATIVE; Range: NEGATIVE; Status: F Test: WBC, URINE AUTO; Value: 1; Range: 0-3; Units: /HPF; Status: F Test: RBC, URINE AUTO; Value: 1; Range: 0-3; Units: /HPF; Status: F Test: BACTERIA, URINE AUTO; Value: NEGATIVE; Range: NEGATIVE; Status: F Test: SQUAMOUS EPITHELIAL CELL UR AU; Value: 0; Range: 0-6; Units: /HPF; Status: F Test: MUCUS, URINE; Value: LARGE; Range: NEGATIVE; Status: F Test: HYALINE CAST, URINE AUTO; Value: 0; Range: 0-1; Units: /LPF; Status: F Lab Order: LIPASE; SPEC'M 07/15/16 23:32 Test: LIPASE; Value: 80; Range: 73-393; Units: U/L; Status: F Lab Order: LIVER PROFILE; SPEC'M 07/15/16 23:32 Test: AST/SGOT; Value: 15; Range: 15-37; Units: U/L; Status: F Test: ALT/SGPT; Value: 13; Range: 12-78; Units: U/L; Status: F Test: ALKALINE PHOSPHATASE; Value: 88; Range: 45-117; Units: U/L; Status: F Test: BILIRUBIN,TOTAL; Value: 0.5; Range: 0.2-1.0; Abnormal: Delta; Units: MG/DL; Status: F Test: BILIRUBIN,DIRECT; Value: 0.2; Range: 0.0-0.2; Units: MG/DL; Status: F Test: TOTAL PROTEIN; Value: 7.8; Range: 6.4-8.2; Units: GM/DL; Status: F Test: ALBUMIN; Value: 3.2; Range: 3.2-5.2; Units: GM/DL; Status: F Test: ALBUMIN/GLOBULIN RATIO; Value: 0.70; Range: 1.00-1.93; Abnormal: Below low normal; Status: F Lab Order: TROPONIN; SPEC'M 07/15/16 23:32 Test: TROPONIN I; Value: < 0.02; Range: < 0.10; Units: NG/ML; Status: F Test Note: ; Troponin I Reference Interval for Siemens [place] LOCI: 99th Percentile= 0.00-0.045 ng/ml Risk Stratification: <= 0.10 ng/ml Decreased Risk for Adverse Clinical Events. 0.10-1.50 ng/ml Increased Risk for Adverse Clinical Events. Evaluation of additional criterion and/or repeat testing in 2-6 hours is suggested to rule out myocardial damage. >= 1.50 ng/ml Indicative of Myocardial Injury. Lab Order: Lactic Acid (Jonas tube on ice); SPEC'M 07/16/16 02:13 Test: LACTIC ACID SEPSIS PROTOCOL; Value: 1.3; Range: 0.4-2.0; Units: MMOL/L; Status: F Lab Order: DRUG EVAL TOXICOLOGY ED ONLY; SPEC'M 07/16/16 00:35 Test: AMPHETAMINES LEVEL URINE; Value: NEGATIVE; Range: NEGATIVE; Status: F Test: BARBITURATES URINE; Value: NEGATIVE; Range: NEGATIVE; Status: F Test: BENZODIAZEPINES URINE; Value: NEGATIVE; Range: NEGATIVE; Status: F Test: CANNABINOIDS URINE; Value: NEGATIVE; Range: NEGATIVE; Status: F Test: COCAINE METABOLITE URINE; Value: NEGATIVE; Range: NEGATIVE; Status: F Test: METHADONE URINE; Value: NEGATIVE; Range: NEGATIVE; Status: F Test: OPIATES URINE; Value: POSITIVE; Range: NEGATIVE; Abnormal: Above high normal; Status: F Test: TRICYCLIC ANTIDEPRESS URINE; Value: NEGATIVE; Range: NEGATIVE; Status: F Test Note: ; ALL PRESUMPTIVE POSITIVE FINDINGS ARE UNCONFIRMED NORMAL VALUES THRESHOLD IN NG/ML AMPHETAMINES 1000 METHAMPHETAMINES 1000 BARBITURATES 300 BENZODIAZEPINES 300 CANNABINOIDS (THC) 50 COCAINE METABOLITE 300 METHADONE 300 OPIATES 300 PHENCYCLIDINE 25 TRICYCLIC ANTIDEPRESSANTS 1000 RESULTS ARE FOR MEDICAL PURPOSES ONLY. ALL URINE SPECIMENS WILL BE SAVED FOR 3 DAYS. IF CONFIRMATION OF A PRESUMPTIVE POSTIVE SCREEN RESULT IS DESIRED, CALL CHEMISTRY ([phone]) AND REQUEST URINE TO BE SENT TO REFERENCE LAB. FOR A LIST OF CLOSELY RELATED COMPOUNDS PLEASE CALL THE LAB. Lab Order: C REACTIVE PROTEIN QUANTITATIV; SPEC'M 07/15/16 23:32 Test: C REACTIVE PROTEIN QUANTITATIV; Value: < 0.30; Range: 0.00-0.30; Units: MG/DL; Status: F Lab Order: DIFFERENTIAL; SPEC'M 07/15/16 23:32 Test: PLATELET ESTIMATE; Range: NORMAL; Status: I Test: NEUTROPHILS %; Value: 68.7; Range: 36.0-66.0; Abnormal: Above high normal; Units: %; Status: F Test: LYMPH %; Value: 22.1; Range: 24.0-44.0; Abnormal: Below low normal; Units: %; Status: F Test: MONO %; Value: 5.8; Range: 0.0-5.0; Abnormal: Above high normal; Units: %; Status: F Test: EOS %; Value: 1.2; Range: 0.0-3.0; Units: %; Status: F Test: BASO %; Value: 0.5; Range: 0.0-1.0; Units: %; Status: F Test: LARGE UNSTAINED CELL %; Value: 1.7; Range: 0.0-4.0; Units: %; Status: F Test: NEUTROPHILS #; Value: 3.8; Range: 1.8-7.7; Units: K/mm3; Status: F Test: LYMPH #; Value: 1.3; Range: 1.5-4.5; Abnormal: Below low normal; Units: K/mm3; Status: F Test: MONO #; Value: 0.3; Range: 0.0-0.8; Units: K/mm3; Status: F Test: EOS #; Value: 0.1; Range: 0.0-0.50; Units: K/mm3; Status: F Test: BASO #; Value: 0.0; Range: 0.0-0.2; Units: K/mm3; Status: F Test: LARGE UNSTAINED CELL #; Value: 0.1; Range: 0.0-0.4; Units: K/mm3; Status: F Lab Order: ERYTHROCYTE SEDIMENTATION RATE; SPEC'M 07/15/16 23:32 Test: ERYTHROCYTE SEDIMENTATION RATE; Value: 28; Range: 0-20; Abnormal: Above high normal; Units: mm/hr; Status: F Lab Order: PREALBUMIN; SPEC'M 07/15/16 23:32 Test: PREALBUMIN; Value: 19.8; Range: 20.0-40.0; Abnormal: Below low normal; Units: MG/DL; Status: F Radiology Order: Abdomen, Flat\\E\\Upright,PA Chest Test: Abdomen, Flat\\E\\Upright,PA Chest REASON FOR EXAMINATION: Abdomen Pain; ; Clinical statement: Pain.; Comparison: CT, 05/29/2016.; Findings: 3 views of the chest and abdomen were obtained. There is a percutaneous gastrostomy tube no; meghana, with the catheter terminating in the region of the stomach. The mediastinum and cardiac silhouet; te are within normal limits. The lungs are clear. No pleural effusion or pneumothorax is seen. A nono; bstructive bowel gas pattern is noted. There is no free air. There are no abnormal masses or calcific; ations. The osseous structures and soft tissues are unremarkable. Lumbosacral fusion changes are inta; ct. Surgical clips are seen in the right upper quadrant.; ; Impression: No acute finding.; ; Outcome: 01:26 Decision to Hospitalize by Provider. br1 03:33 Discharge Assessment: Patient awake, alert and oriented x 3. No cognitive and/or js15 functional deficits noted. Patient verbalized understanding of disposition instructions. patient administered narcotics - yes. Patient was admitted to the hospital or transferred to another facility. The following High Risk Discharge criteria are identified: None. Admitted to Med/Surg accompanied by tech, via stretcher, with chart. Condition: unchanged. Property :Personal belongings accompany Pt. 03:34 No special radiology studies were completed. js15 03:45 Patient left the ED. js15 Signatures: Dispatcher [employer] EDMS Rivera Boateng Brian, MD MD br1 Fany Mcgee, RN RN sls1 Huong Mathews gr2 Iwona Cuello, VALET RUNNER VALET RUNNER rs6 Elba PeteRN RN js15 Walter Florian RN RN nn1 Ela Espino, Reg Reg hs2 Corrections: (The following items were deleted from the chart) :34 01:26 DRUG EVAL TOXICOLOGY ED ONLY+LAB sent. js15 EDMS MTDD
[2016-07-16] MEDS: MORPHINE 2 MG/ML 1ML SYRINGE IV PRN ×5 (04:10→20:18)
--- NOTE | 2016-07-16 04:13 | HPE ---
DATE OF ADMISSION: 07/16/2016 PRIMARY CARE PHYSICIAN: Dr. Cedric Marrero HOSPITALIST ATTENDING: Dr. Pro Garcia CHIEF COMPLAINT: Abdominal pain. HISTORY OF PRESENT ILLNESS: 51-year-old male with history of gastric bypass surgery in [address] Delarosa at [facility] in [place], [place] , on chronic oxycodone 20 mg every four hours prescribed [address] Dr[address] Marrero, esophageal stricture with percutaneous endoscopic gastrostomy (PEG) tube placement, depression and anxiety, reflux disease, tobacco abuse, chronic back pain, presents to the emergency room after being discharged 1-1/2 weeks ago from [facility] where he received a new feeding tube. , patient had fallen at home and broke his feeding tube in half , requiring replacement at [place] 1.5 weeks ago. Patient now presents to the emergency room complaining of persistent epigastric and right lower quadrant abdominal pain since he was discharged with no alleviation with his chronic oxycodone 20 mg every four hours at home. He complains of one episode of vomiting. No fever. No cough, chest pain, dysuria, urgency, or frequency. He states that he has recently seen Dr. Delarosa last who ascribed all his pain from the gastric bypass previously. Patient recently had his insurance approve the Ensure, which he has not used due to financial issues until the insurance approved today. He was seen in the emergency room here at [facility] on 07/15/16, evaluated for possible leakage via the PEG tube, and sent home. CT wasunremarkable. Percutaneous gastrostomy tube with the catheter terminating in the region of the stomach. No acute findings were found. He was discharged from the emergency room 07/15/16, and returns within a few hours on at 0130 am for admission for pain control. He denies BRBPR, hematemesis, and is on chronic carafate and prilosec. Records from Dr. Delarosa at [facility] are not available as yet. Hospitalist team was called for admission. PAST MEDICAL HISTORY: 1. Esophageal stricture. 2. Gastric bypass. 3. Reflux disease. 4. Tobacco abuse. 5. Chronic back pain. 6. Depression and anxiety. PAST SURGICAL HISTORY: 1. Right arm tendon repair. 2. Appendectomy. 3. Back surgery. 4. Gastric bypass surgery in 2012, Dr. Delarosa. 5. Cholecystectomy. 6. Right hand surgery. HOME MEDICATIONS: - aspirin 81 mg daily - Carafate 10 mL four times a day - vitamin B12 1000 mcg every three days - multivitamin one tablet daily - Prilosec 40 mg twice a day - oxycodone 20 mg every four hours - Os-Madan one tablet twice a day - Senokot 8.6 twice a day - multivitamin twice a day - vitamin D3 1000 units daily - zinc gluconate 50 mg daily SOCIAL HISTORY: Currently smokes cigarettes about half pack for the past 25 years previously smoked marijuana, last use of marijuana was about a month ago. Denies any alcohol abuse. Lives with his and son. FAMILY HISTORY: Three brothers and three sisters. One sister with an aneurysm. Father passed due to diabetes. Mother passed due to breast cancer. REVIEW OF SYSTEMS: Denies fevers, chills, or night sweats, weight loss. Denies visual changes, sinusitis, dysphagia. PEG tube; cannot hold anything down due to esophageal stricture. Denies lumps or bumps, changes in range of motion. Chronic abdominal pain. No hematochezia or melena or diarrhea. One episode of vomiting. 12-point review of systems otherwise negative aside from positive findings in history of present illness (HPI). PHYSICAL EXAMINATION: Blood pressure 102/78, pulse 58, sinus rhythm, temperature 97.8, 100% on room air. GENERAL: Patient is in no respiratory distress, appears cachectic, older than his stated age with missing teeth and poor dentition, dry mucous membranes, anicteric sclerae. No jaundice. No pharyngeal erythema or exudate. NECK: Supple, full range of motion. No cervical lymphadenopathy or thyromegaly. LUNGS: Clear to auscultation. No wheezing, rales, or rhonchi. HEART: S1, S2, sinus rhythm. ABDOMEN: Soft, tender in the epigastric area with the G-tube is placed. No significant erythema. Right lower quadrant tenderness. No rebound, guarding. Positive bowel sounds. Scaphoid abdomen. EXTREMITIES: No cyanosis, clubbing, or pitting edema. Muscle wasting is noted. 2 + pulses bilateral lower extremities. LABORATORY DATA: 07/15, CBC: White count 5.5, hemoglobin 11, hematocrit 36, platelet count 254, 68% neutrophils. Sodium 140, potassium 3.7, chloride 106, bicarbonate 29, BUN 13, creatinine 0.7, glucose 88, calcium 8.3, total bilirubin 0.5, direct bilirubin 0.2, AST 15, ALT 13, alkaline phosphatase 88, troponin less than 0.02. UA: Barbara, hazy appearance, pH of 5, protein 1+, trace ketone. Negative nitrite, leukocyte esterase.1+ bilirubin, 1 WBC. Negative urine bacteria. Abdominal x-ray, 07/16/2016: No acute finding. Percutaneous gastrostomy tube noted. Catheter terminating in the region of the stomach. No abnormal findings. CT abdomen and pelvis, 07/15/2016: Percutaneous gastrostomy tube extends into the enteric lumen without extravasation. Small amount of free fluid suggesting recent procedure. No free air or bowel obstruction. Chronic changes ASSESSMENT AND PLAN: 51-year-old male with history of esophageal stricture, gastric bypass surgery, chronic abdominal pain, recently changed percutaneous endoscopic gastrostomy tube due to a mechanical fall and splitting of the feeding tube 1-1/2 weeks ago at [facility] by Dr. Delarosa, presents to the emergency room with intractable abdominal pain was discharged home and returns within a few hours for admission due to severe pain. Patient will be admitted for observation for the following issues: 1. Intractable abdominal pain. No acute findings on CT of the abdomen and pelvis , abdominal x-ray and laboratory data. We will consult pain management for the pain issues. Continue on Percocet 1-2 tablets. IV morphine for break through pain. Defer to pain management for any new changes. No acute abdomen clinically. Check lactic acid. Antiemetics if needed. Check urinalysis (UA) and urine culture and sensitivity. Patient has no acute infection, therefore, no empiric antibiotics. 2. History of gastric bypass with chronic abdominal pain follows with Dr. Delarosa on chronic oxycodone managed by Dr. Marrero. Pain management consulted in the morning. 3. History of esophageal stricture and chronic feeding tube. Resume tube feedings on the same regimen. Nutrition consult and check prealbumin level. 4. History of reflux. Continue on proton pump inhibitor (PPI) twice a day, Carafate for possible gastritis. 5. History of opiate abuse and dependency. Defer to pain management. 6. Chronic back pain. Defer to pain management. 7. Vitamin deficiency secondary to gastric bypass. Continue home vitamin supplements. 8. Deep vein thrombosis (DVT) prophylaxis with subcutaneous heparin. Patient will be assigned to Dr. Pro Garcia at 7 a.m. on 07/16/2016. [facility]
[2016-07-16] MEDS: oxyCODONE 5MG TAB PO SCH ×5 (05:24→23:38)
[2016-07-16 06:00] VITALS: BP 94/60
[2016-07-16] MEDS: PANTOPRAZOLE 40MG INJ (PROTONIX) (C9113) IV SCH ×2 (10:01→20:22)
[2016-07-16] MEDS: OYSTER SHELL CALCIUM 500 MG TAB PO SCH ×2 (10:01→20:21)
[2016-07-16] MEDS: VITAMIN D 1,000 INTERNATIONAL UNITS TABLET PO SCH (10:01)
[2016-07-16] MEDS: HEPARIN SOD (PORCINE) 5000 UNITS/ML VIAL SQ SCH ×2 (10:02→20:21)
[2016-07-16] MEDS: CYANOCOBALAMIN 500 MCG TAB PO SCH (10:02)
[2016-07-16] MEDS: MULTIVITAMINS CHILDREN'S CHEWABLE TABLET PO SCH (10:02)
[2016-07-16] MEDS: SENNA 8.6 MG TAB (SENOKOT) PO SCH ×2 (10:02→20:21)
--- NOTE | 2016-07-16 10:05 | ECGEPIP ---
Stationary ECG Study 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
[2016-07-16] MEDS: SUCRALFATE 1 GM TAB PO SCH ×3 (12:15→23:38)
[2016-07-16] MEDS: NS 1,000 ML IV SCH ×2 (14:23→23:38)
--- NOTE | 2016-07-16 17:38 | CR ---
DATE OF CONSULTATION: 07/16/2016 REFERRING PHYSICIAN: Dr. Gloria Aiken CHIEF COMPLAINT: Abdominal pain. HISTORY OF PRESENT ILLNESS: Jesus Manuel is a pleasant 51-year-old gentleman who was admitted early this a.m. for intractable abdominal pain, status post trauma to percutaneous endoscopic gastrostomy (PEG) tube requiring surgical repair. Jesus Manuel has been on chronic opioid therapy since 1998. States he injured his back while employed at [employer]. He underwent lumbar fusion with Dr. Trujillo, and this was in 2013. Pain has been unchanged. Underwent gastric bypass surgery prior to lumbar surgery in 2012 and has had complications from that surgery. That surgery was mandated in order for him to be eligible to have low back surgery. This is all covered under his Workers' Compensation case. Over the past year, he has been using oxycodone 20 mg every 4 hours, which he takes routinely at approximately six tablets a day prescribed by Dr. Marrero over the past 12 months. States that prior to that, he was on OxyContin, Xanax, and hydrocodone. In review of his pain scores before and after pain medicine administration at the hospital, there is very little if any change. Today, we had a long talk about the possible complications of chronic daily opioid exposure, and we did discuss opioid-induced hyperalgesia. He states that the oxycodone 20 mg does help him, although this is not documented after he has taken this medication. We also discussed briefly dorsal column stimulator. We discussed the possibility that he would need help to come off of narcotic pain medications by professionals trained in that field. The patient states that Dr. Trujillo is planning on sending him to a pain management center. Rating pain level 8/10 VAS. Receiving oxycodone 20 mg every 4 hours and morphine intravenous (IV) 2 mg every 2 hours as needed for severe pain episodes. He is using this medication on a pretty consistent basis. Chief area of pain is abdominal around the PEG tube. PAST MEDICAL HISTORY: Esophageal stricture, gastric bypass, reflux disease, tobacco abuse, chronic back pain, depression, and anxiety. PAST SURGICAL HISTORY: Right arm tendon repair, appendectomy, back surgery, gastric bypass surgery in 2012, cholecystectomy, right hand surgery. SOCIAL HISTORY: Currently smokes cigarettes about 1/2 pack per day. Does admit to periodic use of marijuana. Denies alcohol abuse. Lives with his and son. FAMILY HISTORY: Three brothers and three sisters. One sister with an aneurysm. Father passed due to diabetes. Mother due to breast cancer. REVIEW OF SYSTEMS: 11-point review of systems reveals only pertinent positives in the history of present illness (HPI). PHYSICAL EXAMINATION: Awake, alert, pleasant. Vital signs: 98.4, 69 16, blood pressure (BP) 94/60, oxygen (O2) saturation is 96% on room air. Cardiac: S1, S2, normal rate and rhythm. Respiratory: Lung sounds clear. Respirations nonlabored. Abdomen: Tenderness with palpation around PEG tube. Mild redness noted. Inspection of spine: Tenderness over LS axis. Tenderness over sacral paraspinal area. ASSESSMENT: 1. Chronic opioid dependency. 2. Chronic postoperative abdominal pain. 3. Postlaminectomy pain syndrome. PLAN: At this point, I do feel that he is receptive as an outpatient to possibly consider options other than his current opioid regimen. He will be attending a pain center evaluation. He may consider dorsal column stimulator trial. At the present time, due to the acute exacerbation of his abdominal pain due to trauma and PEG tube manipulation. I would continue his current regimen of chronic pain medications to include oxycodone 20 mg every 4 hours and morphine IV 2 mg every 2 hours as needed. Thank you for allowing us to participate in the care of your patient. If you have any questions or concerns, please do not hesitate to contact me. Sincerely, Cristina Feng, Family Nurse Practitioner [facility]
[2016-07-16] MEDS: MIRTAZAPINE 15 MG TAB PO SCH (20:15)
[2016-07-16 22:00] VITALS: BP 98/62
[2016-07-17] MEDS: oxyCODONE 5MG TAB PO SCH ×6 (01:58→21:16)
[2016-07-17 06:00] VITALS: BP 94/71
[2016-07-17] MEDS: SUCRALFATE 1 GM TAB PO SCH ×3 (06:00→18:00)
[2016-07-17] MEDS: PANTOPRAZOLE 40MG INJ (PROTONIX) (C9113) IV SCH ×2 (08:26→21:15)
[2016-07-17] MEDS: HEPARIN SOD (PORCINE) 5000 UNITS/ML VIAL SQ SCH ×2 (08:27→21:15)
[2016-07-17] MEDS: MULTIVITAMINS CHILDREN'S CHEWABLE TABLET PO SCH (08:27)
[2016-07-17] MEDS: MORPHINE 2 MG/ML 1ML SYRINGE IV PRN ×3 (08:27→16:13)
[2016-07-17] MEDS: CYANOCOBALAMIN 500 MCG TAB PO SCH (08:28)
[2016-07-17] MEDS: VITAMIN D 1,000 INTERNATIONAL UNITS TABLET PO SCH (08:28)
[2016-07-17] MEDS: OYSTER SHELL CALCIUM 500 MG TAB PO SCH ×2 (08:28→21:16)
[2016-07-17] MEDS: SENNA 8.6 MG TAB (SENOKOT) PO SCH ×2 (08:28→21:16)
[2016-07-17 08:47] LABS: MEAN CORPUSCULAR HEMOGLOBIN 30.3 pg (27.0-33.0); MEAN CORPUSCULAR HGB CONC 32.5 g/dl (32.0-36.5); MEAN CORPUSCULAR VOLUME 93.2 fl (80.0-96.0); WHITE BLOOD COUNT 3.5 K/mm3 (4.0-10.0)
[2016-07-17 08:53] LABS: ANION GAP 7 MEQ/L (8-16); BLOOD UREA NITROGEN 10 MG/DL (7-18); CALCIUM LEVEL 7.5 MG/DL (8.5-10.1); CARBON DIOXIDE LEVEL 28 MEQ/L (21-32); CHLORIDE LEVEL 108 MEQ/L (98-107); CREATININE FOR GFR 0.53 MG/DL (0.70-1.30); GLOMERULAR FILTRATION RATE > 60.0 (>56); GLUCOSE, FASTING 78 MG/DL (70-105); POTASSIUM SERUM 4.1 MEQ/L (3.5-5.1); SODIUM LEVEL 143 MEQ/L (136-145)
--- NOTE | 2016-07-17 13:57 | IPNPDOC ---
Subjective Date Seen The patient was seen on 07/17/16. Subjective Chief Complaint/HPI The patient is a 51-year-old male admitted with a reason for visit of Intractable Abdominal Pain. General: Denies: Chills, Night Sweats Constitutional: Denies: Chills, Fever, Malaise Eyes: Denies: Pain, Vision change ENT: Denies: Ear Pain, Head Aches Skin: Denies: Lesions, Rash Pulmonary: Denies: Cough, Dyspnea Cardiovascular: Denies: Chest Pain, Orthopnea, Palpitations Gastrointestinal: Reports: Abdominal Pain, Denies: Diarrhea, Nausea, Vomiting Genitourinary: Denies: Dysuria, Frequency Hematologic: Denies: Bleeding Excessively, Bruising Objective Physical Examination General Exam: Positive: Alert, Cooperative, No Acute Distress ENT Exam: Positive: Atraumatic, Mucous membr. moist/pink Chest Exam: Positive: Clear to auscultation, Normal air movement Heart Exam: Positive: Normal S1, Normal S2, Rate Normal Abdomen Exam: Positive: Soft, Tenderness (Mild tenderness to deep palpation in all 4 quadrants. No rebound tenderness, rigidity, guarding.) Extremity Exam: Negative: Swelling, Tenderness Assessment /Plan Plan/VTE VTE Prophylaxis Ordered?: Yes Plan 1. Intractable abdominal pain CT of the abdomen and pelvis with no acute findings noted Lab work also appears within normal limits On Oxycodone q4h, and IV morphine for break through pain. Pain Management recommendations noted Patient tolerating diet well I have asked pain management to reevaluate the patient today, for transition to a by mouth narcotic regimen for discharge. 2. History of gastric bypass with chronic abdominal pain Follows with Dr. Delarosa on chronic oxycodone managed by Dr. Marrero. Patient open to following up with Pain Mgmt as outpatient 3. History of esophageal stricture and chronic feeding tube. Tube Feeds resumed, Jevity 1 @ 90 cc/hr Tolerating feeds well with no acute complaints 4. History of reflux. Continue on proton pump inhibitor (PPI) twice a day, Carafate 5. History of opiate abuse and dependency Pain Mgmt on board 6. Chronic back pain. As noted above. 7. Vitamin deficiency secondary to gastric bypass. Continue Multivitamins as prescribed 8. Deep vein thrombosis (DVT) prophylaxis with subcutaneous heparin. Dispo-Pending clinical improvement, will await further recommendations from pain management in regards to by mouth regimen for transition to discharge. Anticipate discharge in the next 24-48 hours. VS, I&O, 24H, Fishbone Vital Signs/I&O Vital Signs Date Time Temp Pulse Resp B/P Pulse Ox O2 Delivery O2 Flow Rate FiO2 07/17/16 12:28 20 07/17/16 06:31 Room Air 07/17/16 06:00 97.6 61 94/71 94 I&O- Last 24 Hours up to 6 AM 07/17/16 06:00 Intake Total 3890 ml Output Total 1325 ml Balance 2565 ml Laboratory Data 24H LABS Laboratory Tests 2 07/17/16 08:29: Anion Gap 7L, Blood Urea Nitrogen 10, Creatinine 0.53L, Sodium Level 143, Potassium Level 4.1, Chloride Level 108H, Carbon Dioxide Level 28, Calcium Level 7.5L, Glomerular Filtration Rate > 60.0 CBC/BMP Laboratory Tests 07/17/16 08:29 Calcium Level 7.5 L, Red Blood Count 3.32 L, Mean Corpuscular Volume 93.2, Mean Corpuscular Hemoglobin 30.3, Mean Corpuscular Hemoglobin Concent 32.5, Red Cell Distribution Width 14.0 NILDA WHALEY MD Jul 17, 2016 13:57
[2016-07-17 14:00] VITALS: BP 91/57
--- NOTE | 2016-07-17 16:36 | IPN ---
DATE: 07/17/2016 This is a phone note regarding Edwar Stokes, date of 1965. Phone call from Dr. Garcia requesting oral regimen for narcotics for discharge. [employer] registry is reviewed. This is showing that he picked up to 180 oxycodone 20 mg tablets on 07/01/[address] Marrero. He should have plenty of oxycodone at home to continue his usual dose of six tablets of this medication daily. If it is necessary to give him breakthrough pain medication, as he was using IV 2 mg morphine during his two-day hospital stay, I would recommend morphine sulfate instant release (MSIR) 15 mg one every 8 hours as needed for severe pain episodes. He should follow up with Dr. Marrero upon discharge.
[2016-07-17] MEDS: MORPHINE 30 MG TAB **MSIR PO PRN (19:39)
[2016-07-17 20:00] VITALS: BP 112/62
[2016-07-17] MEDS: MIRTAZAPINE 15 MG TAB PO SCH (21:16)
[2016-07-18] MEDS: SUCRALFATE 1 GM TAB PO SCH ×4 (01:30→17:55)
[2016-07-18] MEDS: oxyCODONE 5MG TAB PO SCH ×6 (01:30→22:20)
[2016-07-18 02:00] VITALS: BP 99/59
[2016-07-18] MEDS: MORPHINE 30 MG TAB **MSIR PO PRN ×3 (04:23→20:27)
--- NOTE | 2016-07-18 04:46 | EDDOCDS ---
Physician Documentation [facility] Name: Edwar Stokes Age: 51 yrs Sex: Male : 1965 Arrival Date: 07/15/2016 Time: 22:56 Bed 9 Private MD: Cedric Marrero A. Disposition: 07/16/16 01:26 Hospitalization ordered by Gloria Aiken for Inpatient Admission. Preliminary diagnosis is Generalized abdominal pain. - Bed requested for 5 Valdes. - Status is Inpatient Admission. js15 - Condition is Stable. - Problem is new. - Symptoms are unchanged. Historical: - Allergies: no known allergies; - Home Meds: 1. aspirin 81 mg Oral tab 1 tab once daily 2. Carafate 100 mg/mL Oral susp 10 mL 4 times per day 3. cyanocobalamin (vitamin B-12) 1,000 mcg oral tab every 3 days DUE TOMORROW 4. multivitamin Oral tab 1 tab daily 5. omeprazole 40 mg Oral cpDR 1 cap 2 times per day 6. oxycodone 20 mg Oral tab 1 tab every 4 hours 7. Oysco-500 500 mg calcium (1,250 mg) oral tab twice a day 8. senna 8.6 mg oral tab 1 tabs twice a day 9. Tab-A-Christian oral tab twice a day 10. vitamin D-3 1000 units daily 11. zinc gluconate 50 mg oral tab daily - PMHx: c diff; chronic abdominal pain; esophageal strictures; GERD; opiate abuse; opiate dependency; - PSHx: g-tube; Appendectomy; Cholecystectomy; Hernia repair; REPAIR LACERATED TENDON RIGHT UPPER ARM; Gastric Bypass; BACK SURGERY---FRACTURE LOWER BACK; - Social history: Smoking status: Patient uses tobacco products, current every day smoker. No barriers to communication noted, The patient speaks fluent Bahamian, Speaks appropriately for age. - Family history: Not pertinent. - : The pt / caregiver states he / she is not on anticoagulants. Home medication list is obtained from the patient. - Exposure Risk Screening:: None identified. Vital Signs: 07/15 22:57 BP 88 / 68; Pulse 70; Resp 18 S; Temp 97.8(O); Pulse Ox 100% on R/A; Weight 55.79 kg / gr2 123 lbs (R); Height 5 ft. 11 in. (180.34 cm) (R); Pain 9/10; 23:17 BP 100 / 63 (auto/); sls1 23:19 Pulse 66 MON; Pulse Ox 99% ; sls1 23:32 BP 109 / 72 (auto/); js15 23:32 Pulse 66 MON; Pulse Ox 97% ; js15 07/16 00:29 BP 98 / 69 (auto/); js15 00:32 Pulse 58 MON; Pulse Ox 100% ; js15 00:48 BP 102 / 78 RA Supine (man/reg); rs6 01:00 BP 103 / 69 (auto/); js15 01:00 Pulse 56 MON; Pulse Ox 100% ; js15 01:15 BP 97 / 60 (auto/); js15 01:15 Pulse 58 MON; Pulse Ox 100% ; js15 01:30 BP 100 / 67 (auto/); js15 01:30 Pulse 64 MON; Pulse Ox 99% ; js15 01:45 BP 107 / 75 (auto/); js15 01:45 Pulse 64 MON; Pulse Ox 100% ; js15 02:00 BP 100 / 70 (auto/); js15 02:01 Pulse 60 MON; Pulse Ox 100% ; js15 02:23 BP 98 / 66 (auto/); js15 02:24 Pulse 58 MON; Pulse Ox 100% ; js15 02:45 BP 98 / 68 (auto/); js15 02:45 Pulse 58 MON; Pulse Ox 100% ; js15 02:50 BP 102 / 72 RA Supine (auto/lg); Pulse 61; Resp 16; Temp 97.4(O); Pulse Ox 100% on R/A; rs6 Pain 9/10; 03:00 BP 93 / 65 (auto/); js15 03:00 Pulse 60 MON; Pulse Ox 100% ; js15 03:08 BP 95 / 65 (auto/); js15 03:09 Pulse 62 MON; Pulse Ox 100% ; js15 03:18 BP 97 / 68 (auto/); js15 03:19 Pulse 56 MON; Pulse Ox 100% ; js15 03:23 BP 95 / 65 (auto/); js15 03:24 Pulse 56 MON; Pulse Ox 100% ; js15 07/15 22:57 Body Mass Index 17.15 (55.79 kg, 180.34 cm) gr2 MDM: 07/15 23:13 IV Saline Lock ordered. ke 23:13 NS 0.9% 1000 ml IV at bolus once ordered. ke 23:14 Ondansetron 4 mg IVP once ordered. ke 23:14 BMP Ordered. EDMS 23:14 CBC Ordered. EDMS 23:14 UA Ordered. EDMS 23:27 Underground Mine Superintendent/Pulse Ox/q 30 min VS ordered. br1 23:27 Misc. Nursing Order ordered. br1 23:29 Abdomen, Flat\E\Upright,PA Chest Ordered. EDMS 23:29 ECG WITH READING ER PHYS+CARDIAG ordered. EDMS 23:30 LIPASE Ordered. EDMS 23:31 LIVER PROFILE Ordered. EDMS 23:32 TROPONIN Ordered. EDMS 23:45 CBC Reviewed. br1 07/16 00:10 BMP Reviewed. br1 00:10 LIVER PROFILE Reviewed. br1 00:10 LIPASE Reviewed. br1 00:10 TROPONIN Reviewed. br1 00:11 oxyCODONE 20 mg PO once ordered. br1 00:49 morphine 2 mg IVP once ordered. br1 01:02 Financial registration complete. hs2 01:15 BED REQUEST+ADM ordered. EDMS 01:25 Lactic Acid (Jonas tube on ice) Ordered. EDMS 01:26 Misc Diamond Powder Technician Order ordered. br1 01:27 [facility] Diamond Powder Technician Order complete. kb5 01:31 LACTIC ACID LEVEL, LACTATE Ordered. EDMS 01:31 DRUG EVAL TOXICOLOGY ED ONLY Ordered. EDMS 01:33 Admission / Observation Status ordered. EDMS 01:33 NPO DIET ordered. EDMS 01:36 [facility] was scanned into [employer] and attached to record. hs2 01:36 C REACTIVE PROTEIN QUANTITATIV Ordered. EDMS 02:05 morphine 2 mg IVP once ordered. js15 02:25 pantoprazole 40 mg IV at bolus once ordered. js15 02:25 NS 0.9% 1000 ml IV at 100 mL/hr continuous ordered. js15 03:44 BMP Reviewed. br1 03:44 CBC Reviewed. br1 03:44 UA Reviewed. br1 03:44 LIVER PROFILE Reviewed. br1 03:44 DRUG EVAL TOXICOLOGY ED ONLY Reviewed. br1 03:44 DIFFERENTIAL Reviewed. br1 03:44 ERYTHROCYTE SEDIMENTATION RATE Reviewed. br1 03:44 PREALBUMIN Reviewed. br1 03:44 LIPASE Reviewed. br1 03:44 TROPONIN Reviewed. br1 03:44 Lactic Acid (Jonas tube on ice) Reviewed. br1 03:44 C REACTIVE PROTEIN QUANTITATIV Reviewed. br1 03:44 Abdomen, Flat\E\Upright,PA Chest Reviewed. br1 13:52 T-Sheet-- Draft Copy was scanned into [employer] and attached to record. gb 13:53 Radiology Report was scanned into [employer] and attached to record. gb Administered Medications: 07/15 23:34 Drug: NS 0.9% 1000 ml [sodium chloride 0.9 % intravenous solution] Route: IV; Rate: nn1 bolus; Site: left forearm; 23:34 Drug: Ondansetron 4 mg [ondansetron HCl 2 mg/mL intravenous solution (2 mL)] Route: nn1 IVP; Site: left forearm; 07/16 00:34 Drug: oxyCODONE 20 mg [oxycodone 5 mg tablet (4 tabs)] Route: PO; js15 00:56 Drug: morphine 2 mg [morphine 2 mg/mL intravenous cartridge (1 mL)] Route: IVP; Site: js15 left forearm; 02:05 Drug: morphine 2 mg [morphine 2 mg/mL intravenous cartridge (1 mL)] Route: IVP; Site: js15 left forearm; 02:26 Drug: pantoprazole 40 mg [pantoprazole 40 mg intravenous solution] Route: IV; Rate: js15 bolus; Site: left forearm; 02:26 Drug: NS 0.9% 1000 ml [sodium chloride 0.9 % intravenous solution] Route: IV; Rate: 100 js15 mL/hr; Site: left forearm; Signatures: Dispatcher [employer] EDMS Karely Leslie, RN RN daq Anika Ayala, Reg Reg gb Parvez Cervantes, REGISTRY NURSE REGISTRY NURSE ke Carlos Longoria, SUPERVISOR FLOOR ASSEMBLY SUPERVISOR FLOOR ASSEMBLY kb5 Juan Pablo Hitchcock MD MD br1 Fany Mcgee RN RN sls1 Elba Pete,KRISTOFER RN js15 Ela Espino, Reg Reg hs2 Walter Florian RN nn1 The chart was reviewed and I authenticate all verbal orders and agree with the evaluation and treatment provided.Corrections: (The following items were deleted from the chart) 07/15 23:30 23:27 LIVER PROFILE+LAB ordered. EDMS EDMS 23:30 23:27 LIPASE+LAB ordered. EDMS EDMS 23:32 23:29 TROPONIN+LAB ordered. EDMS EDMS 07/16 01:34 01:25 DRUG EVAL TOXICOLOGY ED ONLY+LAB ordered. EDMS EDMS 01:36 01:31 BASIC METABOLIC PROFILE ordered. EDMS EDMS 01:37 01:31 LIVER PROFILE ordered. EDMS EDMS 01:37 01:31 C REACTIVE PROTEIN QUANTITATIV ordered. EDMS EDMS 01:41 01:30 CBC WITH DIFFERENTIAL ordered. EDMS EDMS 01:41 01:31 ERYTHROCYTE SEDIMENTATION RATE ordered. EDMS EDMS Attachments: 01:36 [facility] hs2 13:52 T-Sheet-- Draft Copy gb Chart Complete MTDD
--- NOTE | 2016-07-18 04:46 | EDDOCDS ---
Nurse's Notes [facility] Name: Edwar Stokes Age: 51 yrs Sex: Male : 1965 Arrival Date: 07/15/2016 Time: 22:56 Bed 9 Private MD: Cedric Marrero A. Diagnosis: Generalized abdominal pain Presentation: 07/15 23:09 Presenting complaint: Patient states: seen here this morning for abdominal pain, states sls1 has been sick 5 times since he left, called his doctor and told to come here. Adult Sepsis Screening: The patient does not have new or worsening altered mentation. Patient's respiratory rate is less than 22. Systolic blood pressure is greater than 100. Patient has a qSOFA score of 0- Negative Sepsis Screen. Suicide/Homicide risk assessment- the patient denies having any suicidal and/or homicidal ideations and does not present with any other emotional, behavioral or mental health complaints. Status: Patient is not a caseworker protective services or dependent. Transition of care: patient was not received from another setting of care. 23:09 Acuity: ANA Level 3 sls1 23:09 Method Of Arrival: Wheelchair [facility] Triage Assessment: 23:11 General: Appears ill. Pain: Location: abdomen Pain currently is 10 out of 10 on a pain sls1 scale. Pt Declines HIV testing. Neurological: No deficits noted. Respiratory: No deficits noted. GI: Reports lower abdominal pain, upper abdominal pain, nausea, vomiting. Historical: - Allergies: no known allergies; - Home Meds: 1. aspirin 81 mg Oral tab 1 tab once daily 2. Carafate 100 mg/mL Oral susp 10 mL 4 times per day 3. cyanocobalamin (vitamin B-12) 1,000 mcg oral tab every 3 days DUE TOMORROW 4. multivitamin Oral tab 1 tab daily 5. omeprazole 40 mg Oral cpDR 1 cap 2 times per day 6. oxycodone 20 mg Oral tab 1 tab every 4 hours 7. Oysco-500 500 mg calcium (1,250 mg) oral tab twice a day 8. senna 8.6 mg oral tab 1 tabs twice a day 9. Tab-A-Christian oral tab twice a day 10. vitamin D-3 1000 units daily 11. zinc gluconate 50 mg oral tab daily - PMHx: c diff; chronic abdominal pain; esophageal strictures; GERD; opiate abuse; opiate dependency; - PSHx: g-tube; Appendectomy; Cholecystectomy; Hernia repair; REPAIR LACERATED TENDON RIGHT UPPER ARM; Gastric Bypass; BACK SURGERY---FRACTURE LOWER BACK; - Social history: Smoking status: Patient uses tobacco products, current every day smoker. No barriers to communication noted, The patient speaks fluent [place], Speaks appropriately for age. - Family history: Not pertinent. - : The pt / caregiver states he / she is not on anticoagulants. Home medication list is obtained from the patient. - Exposure Risk Screening:: None identified. Screenin/22 03:29 Screening information is obtained from the patient. Fall risk: No risks identified. js15 Assistance ADL's: requires no assistance with activities of daily living. Abuse/DV Screen: The patient / caregiver reports he/she is: not in a situation that causes fear, pain or injury. Nutritional screening: pt states "I barely ever eat but that's normal for me". Advance Directives: There is no active DNR order. home support is adequate. Assessment: 07/15 23:30 General: Appears uncomfortable, Behavior is appropriate for age, cooperative. Pain: js15 Location: abdomen Pain currently is 9 out of 10 on a pain scale. Neurological: Level of Consciousness is awake, alert, obeys commands, Oriented to person, place, time. Respiratory: Airway is patent Respiratory effort is even, unlabored, Respiratory pattern is regular, symmetrical, Breath sounds are clear bilaterally. GI: Abdomen is non- distended Bowel sounds present X 4 quads. Abd is tender to palpation in abdomen diffusely. Derm: Skin is dry, Skin is pale, Skin temperature is cool. 07/16 00:30 Reassessment: Pt resting on stretcher, reports pain in abdomen; respirations even and js15 unlabored; skin pale, warm, dry. 01:30 Reassessment: Patient appears in no apparent distress at this time. Pt states he still js15 has pain in abdomen; provider aware; respirations even and unlabored; skin pale, warm, dry. 02:30 General: Appears in no apparent distress, Behavior is appropriate for age, cooperative. js15 Pain: Location: abdomen Pain currently is 7 out of 10 on a pain scale. Neurological: Level of Consciousness is awake, alert, obeys commands, Oriented to person, place, time. Respiratory: Airway is patent Respiratory effort is even, unlabored, Respiratory pattern is regular, symmetrical. Derm: Skin is dry, Skin is pale, Skin temperature is warm. 03:33 Reassessment: Patient appears in no apparent distress at this time. Patient states js15 symptoms have improved. Pt resting quietly on stretcher, watching tv; respirations even and unlabored; skin pale, warm, dry. Vital Signs: 07/15 22:57 BP 88 / 68; Pulse 70; Resp 18 S; Temp 97.8(O); Pulse Ox 100% on R/A; Weight 55.79 kg gr2 (R); Height 5 ft. 11 in. (180.34 cm) (R); Pain 9/10; 23:17 BP 100 / 63 (auto/); sls1 23:19 Pulse 66 MON; Pulse Ox 99% ; sls1 23:32 BP 109 / 72 (auto/); js15 23:32 Pulse 66 MON; Pulse Ox 97% ; js15 07/16 00:29 BP 98 / 69 (auto/); js15 00:32 Pulse 58 MON; Pulse Ox 100% ; js15 00:48 BP 102 / 78 RA Supine (man/reg); rs6 01:00 BP 103 / 69 (auto/); js15 01:00 Pulse 56 MON; Pulse Ox 100% ; js15 01:15 BP 97 / 60 (auto/); js15 01:15 Pulse 58 MON; Pulse Ox 100% ; js15 01:30 BP 100 / 67 (auto/); js15 01:30 Pulse 64 MON; Pulse Ox 99% ; js15 01:45 BP 107 / 75 (auto/); js15 01:45 Pulse 64 MON; Pulse Ox 100% ; js15 02:00 BP 100 / 70 (auto/); js15 02:01 Pulse 60 MON; Pulse Ox 100% ; js15 02:23 BP 98 / 66 (auto/); js15 02:24 Pulse 58 MON; Pulse Ox 100% ; js15 02:45 BP 98 / 68 (auto/); js15 02:45 Pulse 58 MON; Pulse Ox 100% ; js15 02:50 BP 102 / 72 RA Supine (auto/lg); Pulse 61; Resp 16; Temp 97.4(O); Pulse Ox 100% on R/A; rs6 Pain 9/10; 03:00 BP 93 / 65 (auto/); js15 03:00 Pulse 60 MON; Pulse Ox 100% ; js15 03:08 BP 95 / 65 (auto/); js15 03:09 Pulse 62 MON; Pulse Ox 100% ; js15 03:18 BP 97 / 68 (auto/); js15 03:19 Pulse 56 MON; Pulse Ox 100% ; js15 03:23 BP 95 / 65 (auto/); js15 03:24 Pulse 56 MON; Pulse Ox 100% ; js15 07/15 22:57 Body Mass Index 17.15 (55.79 kg, 180.34 cm) gr2 Vitals: 07/15 22:57 Log In Time: July 15, 2016 at 22:57. gr2 ED Course: 22:57 Patient visited by Huong Mathews. gr2 22:57 Cedric Marrero is Private Physician. gr2 22:57 Patient moved to Waiting gr2 22:59 Patient visited by Huong Mathews. gr2 22:59 Patient moved to Pre RCE gr2 23:10 Triage Initiated sls1 23:11 Patient moved to 9 sls1 23:17 Juan Pablo Hitchcock MD is Attending Physician. br1 23:26 Patient visited by Juan Pablo Hitchcock MD. br1 23:30 The patient / caregiver is instructed regarding the plan of care and ED course. js15 23:31 Patient moved to Radiology lissa 23:34 Inserted saline lock: 20 gauge in left forearm and blood collected. The patient nn1 tolerated the procedure well. 23:35 CBC Sent. nn1 23:35 BMP Sent. nn1 23:39 EKG done. (by ED staff). Reviewed by Juan Pablo Hitchcock MD. rs6 23:40 Patient visited by Iwona Cuello PCA. rs6 23:40 Patient visited by Iwona Cuello PCA. rs6 23:40 Patient moved to 9 rs6 07/16 00:03 Patient moved to Radiology lissa 00:10 Patient moved to 9 lissa 00:25 Patient visited by Elba Pete RN. js15 00:35 Abdomen, Flat\\E\\Upright,PA Chest Returned. EDMS 00:38 UA Sent. js15 00:48 Patient visited by Iwona Cuello PCA. rs6 01:15 Patient visited by Juan Pablo Hitchcock MD. br1 01:26 Nelli Gloria is Hospitalizing Provider. br1 01:36 [facility] [place] Payment Agreement was scanned into [employer] and attached to record. hs2 02:50 Patient visited by Iwona Cuello PCA. rs6 03:30 No procedures done that require assistance. js15 13:52 T-Sheet-- Draft Copy was scanned into [employer] and attached to record. gb 13:53 Radiology Report was scanned into [employer] and attached to record. gb Administered Medications: 07/15 23:34 Drug: NS 0.9% 1000 ml [sodium chloride 0.9 % intravenous solution] Route: IV; Rate: nn1 bolus; Site: left forearm; 23:34 Drug: Ondansetron 4 mg [ondansetron HCl 2 mg/mL intravenous solution (2 mL)] Route: nn1 IVP; Site: left forearm; 07/16 00:34 Drug: oxyCODONE 20 mg [oxycodone 5 mg tablet (4 tabs)] Route: PO; js15 00:56 Drug: morphine 2 mg [morphine 2 mg/mL intravenous cartridge (1 mL)] Route: IVP; Site: js15 left forearm; 02:05 Drug: morphine 2 mg [morphine 2 mg/mL intravenous cartridge (1 mL)] Route: IVP; Site: js15 left forearm; 02:26 Drug: pantoprazole 40 mg [pantoprazole 40 mg intravenous solution] Route: IV; Rate: js15 bolus; Site: left forearm; 02:26 Drug: NS 0.9% 1000 ml [sodium chloride 0.9 % intravenous solution] Route: IV; Rate: 100 js15 mL/hr; Site: left forearm; Order Results: Lab Order: BMP; SPEC'M 07/15/16 23:32 Test: GLUCOSE, FASTING; Value: 88; Range: 70-105; Units: MG/DL; Status: F Test: BLOOD UREA NITROGEN; Value: 13; Range: 7-18; Units: MG/DL; Status: F Test: CREATININE FOR GFR; Value: 0.70; Range: 0.70-1.30; Units: MG/DL; Status: F Test: GLOMERULAR FILTRATION RATE; Value: > 60.0; Range: >56; Status: F Test: SODIUM LEVEL; Value: 140; Range: 136-145; Units: MEQ/L; Status: F Test: POTASSIUM SERUM; Value: 3.7; Range: 3.5-5.1; Units: MEQ/L; Status: F Test: CHLORIDE LEVEL; Value: 106; Range: 98-107; Units: MEQ/L; Status: F Test: CARBON DIOXIDE LEVEL; Value: 29; Range: 21-32; Units: MEQ/L; Status: F Test: ANION GAP; Value: 5; Range: 8-16; Abnormal: Below low normal; Units: MEQ/L; Status: F Test: CALCIUM LEVEL; Value: 8.3; Range: 8.5-10.1; Abnormal: Below low normal; Units: MG/DL; Status: F Test Note: ; Units are mL/min/1.73 m2 Chronic Kidney Disease Staging per NKF: Stage I & II GFR >=60 Normal to Mildly Decreased Stage III GFR 30-59 Moderately Decreased Stage IV GFR 15-29 Severely Decreased Stage V GFR <15 Very Little GFR Left ESRD GFR <15 on SWEET [employer] Lab Order: CBC; [facility] 07/15/16 23:32 Test: WHITE BLOOD COUNT; Value: 5.5; Range: 4.0-10.0; Units: K/mm3; Status: F Test: RED BLOOD COUNT; Value: 3.87; Range: 4.30-6.10; Abnormal: Below low normal; Units: M/mm3; Status: F Test: HEMOGLOBIN; Value: 11.9; Range: 14.0-18.0; Abnormal: Below low normal; Units: g/dl; Status: F Test: HEMATOCRIT; Value: 36.1; Range: 42.0-52.0; Abnormal: Below low normal; Units: %; Status: F Test: MEAN CORPUSCULAR VOLUME; Value: 93.3; Range: 80.0-96.0; Units: fl; Status: F Test: MEAN CORPUSCULAR HEMOGLOBIN; Value: 30.6; Range: 27.0-33.0; Units: pg; Status: F Test: MEAN CORPUSCULAR HGB CONC; Value: 32.9; Range: 32.0-36.5; Units: g/dl; Status: F Test: RED CELL DISTRIBUTION WIDTH; Value: 13.9; Range: 11.5-14.5; Units: %; Status: F Test: PLATELET COUNT, AUTOMATED; Value: 254; Range: 150-450; Units: k/mm3; Status: F Lab Order: UA; SPEC'M 07/16/16 00:35 Test: APPEARANCE, URINE; Value: HAZY; Range: CLEAR; Status: F Test: COLOR, URINE; Value: ALLEGRA; Range: YELLOW; Status: F Test: PH,URINE; Value: 5.0; Range: 5.0-9.0; Units: UNITS; Status: F Test: SPECIFIC GRAVITY URINE AUTO; Value: 1.039; Range: 1.002-1.035; Status: F Test: PROTEIN, URINE AUTO; Value: 1+; Range: NEGATIVE; Abnormal: Above high normal; Units: mg/dL; Status: F Test: GLUCOSE, URINE (UA) AUTO; Value: NEGATIVE; Range: NEGATIVE; Units: mg/dL; Status: F Test: KETONE, URINE AUTO; Value: TRACE; Range: NEGATIVE; Abnormal: Above high normal; Units: mg/dL; Status: F Test: UROBILINOGEN, URINE AUTO; Value: 4.0; Range: 0.0-2.0; Abnormal: Above high normal; Units: mg/dL; Status: F Test: BILIRUBIN, URINE AUTO; Value: 1+; Range: NEGATIVE; Abnormal: Above high normal; Status: F Test: NITRITE, URINE AUTO; Value: NEGATIVE; Range: NEGATIVE; Status: F Test: LEUKOCYTE ESTERASE, URINE AUTO; Value: NEGATIVE; Range: NEGATIVE; Status: F Test: BLOOD, URINE BLOOD; Value: NEGATIVE; Range: NEGATIVE; Status: F Test: WBC, URINE AUTO; Value: 1; Range: 0-3; Units: /HPF; Status: F Test: RBC, URINE AUTO; Value: 1; Range: 0-3; Units: /HPF; Status: F Test: BACTERIA, URINE AUTO; Value: NEGATIVE; Range: NEGATIVE; Status: F Test: SQUAMOUS EPITHELIAL CELL UR AU; Value: 0; Range: 0-6; Units: /HPF; Status: F Test: MUCUS, URINE; Value: LARGE; Range: NEGATIVE; Status: F Test: HYALINE CAST, URINE AUTO; Value: 0; Range: 0-1; Units: /LPF; Status: F Lab Order: LIPASE; SPEC'M 21/17 23:32 Test: LIPASE; Value: 80; Range: 73-393; Units: U/L; Status: F Lab Order: LIVER PROFILE; 07/15/16 23:32 Test: AST/SGOT; Value: 15; Range: 15-37; Units: U/L; Status: F Test: ALT/SGPT; Value: 13; Range: 12-78; Units: U/L; Status: F Test: ALKALINE PHOSPHATASE; Value: 88; Range: 45-117; Units: U/L; Status: F Test: BILIRUBIN,TOTAL; Value: 0.5; Range: 0.2-1.0; Abnormal: Delta; Units: MG/DL; Status: F Test: BILIRUBIN,DIRECT; Value: 0.2; Range: 0.0-0.2; Units: MG/DL; Status: F Test: TOTAL PROTEIN; Value: 7.8; Range: 6.4-8.2; Units: GM/DL; Status: F Test: ALBUMIN; Value: 3.2; Range: 3.2-5.2; Units: GM/DL; Status: F Test: ALBUMIN/GLOBULIN RATIO; Value: 0.70; Range: 1.00-1.93; Abnormal: Below low normal; Status: F Lab Order: TROPONIN; 07/15/16 23:32 Test: TROPONIN I; Value: < 0.02; Range: < 0.10; Units: NG/ML; Status: F Test Note: ; Troponin I Reference Interval for [employer] [place] LOCI: 99th Percentile= 0.00-0.045 ng/ml Risk Stratification: <= 0.10 ng/ml Decreased Risk for Adverse Clinical Events. 0.10-1.50 ng/ml Increased Risk for Adverse Clinical Events. Evaluation of additional criterion and/or repeat testing in 2-6 hours is suggested to rule out myocardial damage. >= 1.50 ng/ml Indicative of Myocardial Injury. Lab Order: Lactic Acid (Jonas tube on ice); 07/16/16 02:13 Test: LACTIC ACID SEPSIS PROTOCOL; Value: 1.3; Range: 0.4-2.0; Units: MMOL/L; Status: F Lab Order: DRUG EVAL TOXICOLOGY ED ONLY; 07/16/16 00:35 Test: AMPHETAMINES LEVEL URINE; Value: NEGATIVE; Range: NEGATIVE; Status: F Test: BARBITURATES URINE; Value: NEGATIVE; Range: NEGATIVE; Status: F Test: BENZODIAZEPINES URINE; Value: NEGATIVE; Range: NEGATIVE; Status: F Test: CANNABINOIDS URINE; Value: NEGATIVE; Range: NEGATIVE; Status: F Test: COCAINE METABOLITE URINE; Value: NEGATIVE; Range: NEGATIVE; Status: F Test: METHADONE URINE; Value: NEGATIVE; Range: NEGATIVE; Status: F Test: OPIATES URINE; Value: POSITIVE; Range: NEGATIVE; Abnormal: Above high normal; Status: F Test: TRICYCLIC ANTIDEPRESS URINE; Value: NEGATIVE; Range: NEGATIVE; Status: F Test Note: ; ALL PRESUMPTIVE POSITIVE FINDINGS ARE UNCONFIRMED NORMAL VALUES THRESHOLD IN NG/ML AMPHETAMINES 1000 METHAMPHETAMINES 1000 BARBITURATES 300 BENZODIAZEPINES 300 CANNABINOIDS (THC) 50 COCAINE METABOLITE 300 METHADONE 300 OPIATES 300 PHENCYCLIDINE 25 TRICYCLIC ANTIDEPRESSANTS 1000 RESULTS ARE FOR MEDICAL PURPOSES ONLY. ALL URINE SPECIMENS WILL BE SAVED FOR 3 DAYS. IF CONFIRMATION OF A PRESUMPTIVE POSTIVE SCREEN RESULT IS DESIRED, CALL CHEMISTRY ([phone]) AND REQUEST URINE TO BE SENT TO REFERENCE LAB. FOR A LIST OF CLOSELY RELATED COMPOUNDS PLEASE CALL THE LAB. Lab Order: C REACTIVE PROTEIN QUANTITATIV; [facility] 07/15/16 23:32 Test: C REACTIVE PROTEIN QUANTITATIV; Value: < 0.30; Range: 0.00-0.30; Units: MG/DL; Status: F Lab Order: DIFFERENTIAL; [facility] 07/15/16 23:32 Test: PLATELET ESTIMATE; Range: NORMAL; Status: I Test: NEUTROPHILS %; Value: 68.7; Range: 36.0-66.0; Abnormal: Above high normal; Units: %; Status: F Test: LYMPH %; Value: 22.1; Range: 24.0-44.0; Abnormal: Below low normal; Units: %; Status: F Test: MONO %; Value: 5.8; Range: 0.0-5.0; Abnormal: Above high normal; Units: %; Status: F Test: EOS %; Value: 1.2; Range: 0.0-3.0; Units: %; Status: F Test: BASO %; Value: 0.5; Range: 0.0-1.0; Units: %; Status: F Test: LARGE UNSTAINED CELL %; Value: 1.7; Range: 0.0-4.0; Units: %; Status: F Test: NEUTROPHILS #; Value: 3.8; Range: 1.8-7.7; Units: K/mm3; Status: F Test: LYMPH #; Value: 1.3; Range: 1.5-4.5; Abnormal: Below low normal; Units: K/mm3; Status: F Test: MONO #; Value: 0.3; Range: 0.0-0.8; Units: K/mm3; Status: F Test: EOS #; Value: 0.1; Range: 0.0-0.50; Units: K/mm3; Status: F Test: BASO #; Value: 0.0; Range: 0.0-0.2; Units: K/mm3; Status: F Test: LARGE UNSTAINED CELL #; Value: 0.1; Range: 0.0-0.4; Units: K/mm3; Status: F Lab Order: ERYTHROCYTE SEDIMENTATION RATE; SPEC'M 07/15/16 23:32 Test: ERYTHROCYTE SEDIMENTATION RATE; Value: 28; Range: 0-20; Abnormal: Above high normal; Units: mm/hr; Status: F Lab Order: PREALBUMIN; SPEC'M 07/15/16 23:32 Test: PREALBUMIN; Value: 19.8; Range: 20.0-40.0; Abnormal: Below low normal; Units: MG/DL; Status: F Radiology Order: Abdomen, Flat\\E\\Upright,PA Chest Test: Abdomen, Flat\\E\\Upright,PA Chest REASON FOR EXAMINATION: Abdomen Pain; ; Clinical statement: Pain.; Comparison: CT, 05/29/2016.; Findings: 3 views of the chest and abdomen were obtained. There is a percutaneous gastrostomy tube no; meghana, with the catheter terminating in the region of the stomach. The mediastinum and cardiac silhouet; te are within normal limits. The lungs are clear. No pleural effusion or pneumothorax is seen. A nono; bstructive bowel gas pattern is noted. There is no free air. There are no abnormal masses or calcific; ations. The osseous structures and soft tissues are unremarkable. Lumbosacral fusion changes are inta; ct. Surgical clips are seen in the right upper quadrant.; ; Impression: No acute finding.; ; Outcome: 01:26 Decision to Hospitalize by Provider. br1 03:33 Discharge Assessment: Patient awake, alert and oriented x 3. No cognitive and/or js15 functional deficits noted. Patient verbalized understanding of disposition instructions. patient administered narcotics - yes. Patient was admitted to the hospital or transferred to another facility. The following High Risk Discharge criteria are identified: None. Admitted to Med/Surg accompanied by tech, via stretcher, with chart. Condition: unchanged. Property :Personal belongings accompany Pt. 03:34 No special radiology studies were completed. js15 03:45 Patient left the ED. js15 Signatures: Dispatcher [employer] EDMS Rivera Boateng Gloria, Reg Reg gb Juan Pablo Hitchcock MD MD br1 Fany Mcgee RN RN sls1 Huong Mathews gr2 Iwona Cuello, ANY COMMODITY SALES DELIVERER ANY COMMODITY SALES DELIVERER rs6 Elba Pete,RN RN js15 Walter Florian,RN RN nn1 Ela Espino, Reg Reg hs2 Corrections: (The following items were deleted from the chart) :34 01:26 DRUG EVAL TOXICOLOGY ED ONLY+LAB sent. js15 EDMS Chart Complete MTDD
--- NOTE | 2016-07-18 04:46 | EDDOCDS ---
Physician Documentation [facility] Name: Edwar Stokes Age: 51 yrs Sex: Male : 1965 Arrival Date: 07/15/2016 Time: 22:56 Bed 9 Private MD: Cedric Marrero A. Disposition: 07/16/16 01:26 Hospitalization ordered by Gloria Aiken for Inpatient Admission. Preliminary diagnosis is Generalized abdominal pain. - Bed requested for 5 Valdes. - Status is Inpatient Admission. js15 - Condition is Stable. - Problem is new. - Symptoms are unchanged. Historical: - Allergies: no known allergies; - Home Meds: 1. aspirin 81 mg Oral tab 1 tab once daily 2. Carafate 100 mg/mL Oral susp 10 mL 4 times per day 3. cyanocobalamin (vitamin B-12) 1,000 mcg oral tab every 3 days DUE TOMORROW 4. multivitamin Oral tab 1 tab daily 5. omeprazole 40 mg Oral cpDR 1 cap 2 times per day 6. oxycodone 20 mg Oral tab 1 tab every 4 hours 7. Oysco-500 500 mg calcium (1,250 mg) oral tab twice a day 8. senna 8.6 mg oral tab 1 tabs twice a day 9. Tab-A-Christian oral tab twice a day 10. vitamin D-3 1000 units daily 11. zinc gluconate 50 mg oral tab daily - PMHx: c diff; chronic abdominal pain; esophageal strictures; GERD; opiate abuse; opiate dependency; - PSHx: g-tube; Appendectomy; Cholecystectomy; Hernia repair; REPAIR LACERATED TENDON RIGHT UPPER ARM; Gastric Bypass; BACK SURGERY---FRACTURE LOWER BACK; - Social history: Smoking status: Patient uses tobacco products, current every day smoker. No barriers to communication noted, The patient speaks fluent Ghanaian, Speaks appropriately for age. - Family history: Not pertinent. - : The pt / caregiver states he / she is not on anticoagulants. Home medication list is obtained from the patient. - Exposure Risk Screening:: None identified. Vital Signs: 07/15 22:57 BP 88 / 68; Pulse 70; Resp 18 S; Temp 97.8(O); Pulse Ox 100% on R/A; Weight 55.79 kg / gr2 123 lbs (R); Height 5 ft. 11 in. (180.34 cm) (R); Pain 9/10; 23:17 BP 100 / 63 (auto/); sls1 23:19 Pulse 66 MON; Pulse Ox 99% ; sls1 23:32 BP 109 / 72 (auto/); js15 23:32 Pulse 66 MON; Pulse Ox 97% ; js15 07/16 00:29 BP 98 / 69 (auto/); js15 00:32 Pulse 58 MON; Pulse Ox 100% ; js15 00:48 BP 102 / 78 RA Supine (man/reg); rs6 01:00 BP 103 / 69 (auto/); js15 01:00 Pulse 56 MON; Pulse Ox 100% ; js15 01:15 BP 97 / 60 (auto/); js15 01:15 Pulse 58 MON; Pulse Ox 100% ; js15 01:30 BP 100 / 67 (auto/); js15 01:30 Pulse 64 MON; Pulse Ox 99% ; js15 01:45 BP 107 / 75 (auto/); js15 01:45 Pulse 64 MON; Pulse Ox 100% ; js15 02:00 BP 100 / 70 (auto/); js15 02:01 Pulse 60 MON; Pulse Ox 100% ; js15 02:23 BP 98 / 66 (auto/); js15 02:24 Pulse 58 MON; Pulse Ox 100% ; js15 02:45 BP 98 / 68 (auto/); js15 02:45 Pulse 58 MON; Pulse Ox 100% ; js15 02:50 BP 102 / 72 RA Supine (auto/lg); Pulse 61; Resp 16; Temp 97.4(O); Pulse Ox 100% on R/A; rs6 Pain 9/10; 03:00 BP 93 / 65 (auto/); js15 03:00 Pulse 60 MON; Pulse Ox 100% ; js15 03:08 BP 95 / 65 (auto/); js15 03:09 Pulse 62 MON; Pulse Ox 100% ; js15 03:18 BP 97 / 68 (auto/); js15 03:19 Pulse 56 MON; Pulse Ox 100% ; js15 03:23 BP 95 / 65 (auto/); js15 03:24 Pulse 56 MON; Pulse Ox 100% ; js15 07/15 22:57 Body Mass Index 17.15 (55.79 kg, 180.34 cm) gr2 MDM: 07/15 23:13 IV Saline Lock ordered. ke 23:13 NS 0.9% 1000 ml IV at bolus once ordered. ke 23:14 Ondansetron 4 mg IVP once ordered. ke 23:14 BMP Ordered. EDMS 23:14 CBC Ordered. EDMS 23:14 UA Ordered. EDMS 23:27 Geotechnical Laboratory Technician/Pulse Ox/q 30 min VS ordered. br1 23:27 Misc. Nursing Order ordered. br1 23:29 Abdomen, Flat\E\Upright,PA Chest Ordered. EDMS 23:29 ECG WITH READING ER PHYS+CARDIAG ordered. EDMS 23:30 LIPASE Ordered. EDMS 23:31 LIVER PROFILE Ordered. EDMS 23:32 TROPONIN Ordered. EDMS 23:45 CBC Reviewed. br1 07/16 00:10 BMP Reviewed. br1 00:10 LIVER PROFILE Reviewed. br1 00:10 LIPASE Reviewed. br1 00:10 TROPONIN Reviewed. br1 00:11 oxyCODONE 20 mg PO once ordered. br1 00:49 morphine 2 mg IVP once ordered. br1 01:02 Financial registration complete. hs2 01:15 BED REQUEST+ADM ordered. EDMS 01:25 Lactic Acid (Jonas tube on ice) Ordered. EDMS 01:26 Misc Cinnamon Grinder Order ordered. br1 01:27 [facility] Cinnamon Grinder Order complete. kb5 01:31 LACTIC ACID LEVEL, LACTATE Ordered. EDMS 01:31 DRUG EVAL TOXICOLOGY ED ONLY Ordered. EDMS 01:33 Admission / Observation Status ordered. EDMS 01:33 NPO DIET ordered. EDMS 01:36 [facility] Payment Agreement was scanned into Intent and attached to record. hs2 01:36 C REACTIVE PROTEIN QUANTITATIV Ordered. EDMS 02:05 morphine 2 mg IVP once ordered. js15 02:25 pantoprazole 40 mg IV at bolus once ordered. js15 02:25 NS 0.9% 1000 ml IV at 100 mL/hr continuous ordered. js15 03:44 BMP Reviewed. br1 03:44 CBC Reviewed. br1 03:44 UA Reviewed. br1 03:44 LIVER PROFILE Reviewed. br1 03:44 DRUG EVAL TOXICOLOGY ED ONLY Reviewed. br1 03:44 DIFFERENTIAL Reviewed. br1 03:44 ERYTHROCYTE SEDIMENTATION RATE Reviewed. br1 03:44 PREALBUMIN Reviewed. br1 03:44 LIPASE Reviewed. br1 03:44 TROPONIN Reviewed. br1 03:44 Lactic Acid (Jonas tube on ice) Reviewed. br1 03:44 C REACTIVE PROTEIN QUANTITATIV Reviewed. br1 03:44 Abdomen, Flat\E\Upright,PA Chest Reviewed. br1 13:52 T-Sheet-- Draft Copy was scanned into Intent and attached to record. gb 13:53 Radiology Report was scanned into Intent and attached to record. gb Administered Medications: 07/15 23:34 Drug: NS 0.9% 1000 ml [sodium chloride 0.9 % intravenous solution] Route: IV; Rate: nn1 bolus; Site: left forearm; 23:34 Drug: Ondansetron 4 mg [ondansetron HCl 2 mg/mL intravenous solution (2 mL)] Route: nn1 IVP; Site: left forearm; 07/16 00:34 Drug: oxyCODONE 20 mg [oxycodone 5 mg tablet (4 tabs)] Route: PO; js15 00:56 Drug: morphine 2 mg [morphine 2 mg/mL intravenous cartridge (1 mL)] Route: IVP; Site: js15 left forearm; 02:05 Drug: morphine 2 mg [morphine 2 mg/mL intravenous cartridge (1 mL)] Route: IVP; Site: js15 left forearm; 02:26 Drug: pantoprazole 40 mg [pantoprazole 40 mg intravenous solution] Route: IV; Rate: js15 bolus; Site: left forearm; 02:26 Drug: NS 0.9% 1000 ml [sodium chloride 0.9 % intravenous solution] Route: IV; Rate: 100 js15 mL/hr; Site: left forearm; Signatures: Dispatcher [employer] EDMS Karely Leslie, RN RN daq Anika Ayala, Reg Reg gb Pavrez Cervantes, WIRE STRETCHER WIRE STRETCHER ke Carlos Longoria, SECRETARY TO THE VICE PRESIDENT SECRETARY TO THE VICE PRESIDENT kb5 Juan Pablo Hitchcock MD MD br1 Fany Mcgee RN RN sls1 Elba Pete,KRISTOFER RN js15 Ela Espino, Reg Reg hs2 Waltre Florian RN nn1 The chart was reviewed and I authenticate all verbal orders and agree with the evaluation and treatment provided.Corrections: (The following items were deleted from the chart) 07/15 23:30 23:27 LIVER PROFILE+LAB ordered. EDMS EDMS 23:30 23:27 LIPASE+LAB ordered. EDMS EDMS 23:32 23:29 TROPONIN+LAB ordered. EDMS EDMS 07/16 01:34 01:25 DRUG EVAL TOXICOLOGY ED ONLY+LAB ordered. EDMS EDMS 01:36 01:31 BASIC METABOLIC PROFILE ordered. EDMS EDMS 01:37 01:31 LIVER PROFILE ordered. EDMS EDMS 01:37 01:31 C REACTIVE PROTEIN QUANTITATIV ordered. EDMS EDMS 01:41 01:30 CBC WITH DIFFERENTIAL ordered. EDMS EDMS 01:41 01:31 ERYTHROCYTE SEDIMENTATION RATE ordered. EDMS EDMS Attachments: 01:36 [facility] Payment Agreement hs2 13:52 T-Sheet-- Draft Copy gb Chart Complete MTDD
[2016-07-18 06:00] VITALS: BP 97/69
[2016-07-18 06:58] LABS: MEAN CORPUSCULAR HEMOGLOBIN 31.2 pg (27.0-33.0); MEAN CORPUSCULAR HGB CONC 33.4 g/dl (32.0-36.5); MEAN CORPUSCULAR VOLUME 93.3 fl (80.0-96.0); RED CELL DISTRIBUTION WIDTH 14.1 % (11.5-14.5); WHITE BLOOD COUNT 3.8 K/mm3 (4.0-10.0)
[2016-07-18 07:20] LABS: ANION GAP 7 MEQ/L (8-16); BLOOD UREA NITROGEN 8 MG/DL (7-18); CALCIUM LEVEL 7.7 MG/DL (8.5-10.1); CARBON DIOXIDE LEVEL 29 MEQ/L (21-32); CHLORIDE LEVEL 106 MEQ/L (98-107); CREATININE FOR GFR 0.44 MG/DL (0.70-1.30); GLOMERULAR FILTRATION RATE > 60.0 (>56); GLUCOSE, FASTING 85 MG/DL (70-105); SODIUM LEVEL 142 MEQ/L (136-145)
[2016-07-18] MEDS: SENNA 8.6 MG TAB (SENOKOT) PO SCH ×2 (10:20→20:26)
[2016-07-18] MEDS: OYSTER SHELL CALCIUM 500 MG TAB PO SCH ×2 (10:20→20:26)
[2016-07-18] MEDS: VITAMIN D 1,000 INTERNATIONAL UNITS TABLET PO SCH (10:20)
[2016-07-18] MEDS: MULTIVITAMINS CHILDREN'S CHEWABLE TABLET PO SCH (10:21)
[2016-07-18] MEDS: CYANOCOBALAMIN 500 MCG TAB PO SCH (10:21)
[2016-07-18] MEDS: HEPARIN SOD (PORCINE) 5000 UNITS/ML VIAL SQ SCH ×2 (10:22→20:26)
[2016-07-18] MEDS: PANTOPRAZOLE 40MG INJ (PROTONIX) (C9113) IV SCH ×2 (10:33→20:26)
[2016-07-18 14:00] VITALS: BP 89/56
--- NOTE | 2016-07-18 15:42 | IPNPDOC ---
Subjective Date Seen The patient was seen on 07/18/16. Subjective Chief Complaint/HPI The patient is a 51-year-old male admitted with a reason for visit of Intractable Abdominal Pain. General: Denies: Chills, Night Sweats Constitutional: Denies: Chills, Fever Eyes: Denies: Pain, Vision change ENT: Denies: Ear Pain, Head Aches Skin: Denies: Lesions, Rash Pulmonary: Denies: Cough, Dyspnea Cardiovascular: Denies: Chest Pain, Palpitations Gastrointestinal: Reports: Abdominal Pain, Denies: Diarrhea, Nausea, Vomiting Genitourinary: Denies: Dysuria, Frequency Hematologic: Denies: Bleeding Excessively, Bruising Objective Physical Examination General Exam: Positive: Alert, Cooperative, No Acute Distress ENT Exam: Positive: Atraumatic, Mucous membr. moist/pink Chest Exam: Positive: Clear to auscultation, Normal air movement Heart Exam: Positive: Normal S1, Normal S2, Rate Normal Abdomen Exam: Positive: Other (+PEG Tube, with no surround erythema or tenderness), Soft, Tenderness (Mild tenderness to deep palpation in all 4 quadrants. No rebound tenderness, rigidity, guarding.) Extremity Exam: Negative: Swelling, Tenderness Assessment /Plan Plan/VTE VTE Prophylaxis Ordered?: Yes Plan 1. Intractable abdominal pain CT of the abdomen and pelvis with no acute findings noted Lab work also appears within normal limits On Oxycodone q4h, and PO MSIR for break through pain. Pain Management recommendations noted Patient tolerating diet well Patient's chronic abdominal pain appears to be better controlled on PO Pain Meds today We will continue to monitor his status 2. History of gastric bypass with chronic abdominal pain Follows with Dr. Delarosa on chronic oxycodone managed by Dr. Marrero. Patient open to following up with Pain Mgmt as outpatient 3. History of esophageal stricture and chronic feeding tube. Tube Feeds resumed, Jevity 1 @ 90 cc/hr Tolerating feeds well with no acute complaints 4. History of reflux. Continue on proton pump inhibitor (PPI) twice a day, Carafate 5. History of opiate abuse and dependency Pain Mgmt on board 6. Chronic back pain. As noted above. 7. Vitamin deficiency secondary to gastric bypass. Continue Multivitamins as prescribed 8. Deep vein thrombosis (DVT) prophylaxis with subcutaneous heparin. Dispo-Pending clinical improvement, anticipate D/C in the AM. VS, I&O, 24H, Fishbone Vital Signs/I&O Vital Signs Date Time Temp Pulse Resp B/P Pulse Ox O2 Delivery O2 Flow Rate FiO2 07/18/16 14:45 18 07/18/16 06:00 97.9 57 97/69 100 Room Air I&O- Last 24 Hours up to 6 AM 07/18/16 06:00 Intake Total 1709 ml Output Total 1150 ml Balance 559 ml Laboratory Data 24H LABS Laboratory Tests 2 07/18/16 06:43: Anion Gap 7L, Blood Urea Nitrogen 8, Creatinine 0.44L, Sodium Level 142, Potassium Level 4.0, Chloride Level 106, Carbon Dioxide Level 29, Calcium Level 7.7L, Glomerular Filtration Rate > 60.0 CBC/BMP Laboratory Tests 07/18/16 06:43 Calcium Level 7.7 L, Red Blood Count 3.35 L, Mean Corpuscular Volume 93.3, Mean Corpuscular Hemoglobin 31.2, Mean Corpuscular Hemoglobin Concent 33.4, Red Cell Distribution Width 14.1 NILDA WHALEY MD Jul 18, 2016 15:42
[2016-07-18] MEDS: MIRTAZAPINE 15 MG TAB PO SCH (20:26)
[2016-07-18 22:00] VITALS: BP 84/52
[2016-07-19] MEDS: SUCRALFATE 1 GM TAB PO SCH ×2 (00:30→06:02)
[2016-07-19] MEDS: oxyCODONE 5MG TAB PO SCH ×3 (02:16→09:54)
[2016-07-19] MEDS: MORPHINE 30 MG TAB **MSIR PO PRN (04:51)
[2016-07-19 06:00] VITALS: BP 86/53
[2016-07-19 06:33] LABS: MEAN CORPUSCULAR HEMOGLOBIN 30.3 pg (27.0-33.0); MEAN CORPUSCULAR HGB CONC 32.6 g/dl (32.0-36.5); MEAN CORPUSCULAR VOLUME 92.9 fl (80.0-96.0); RED CELL DISTRIBUTION WIDTH 14.1 % (11.5-14.5); WHITE BLOOD COUNT 4.2 K/mm3 (4.0-10.0)
[2016-07-19 06:54] LABS: ANION GAP 6 MEQ/L (8-16); BLOOD UREA NITROGEN 11 MG/DL (7-18); CALCIUM LEVEL 7.8 MG/DL (8.5-10.1); CARBON DIOXIDE LEVEL 32 MEQ/L (21-32); CHLORIDE LEVEL 102 MEQ/L (98-107); CREATININE FOR GFR 0.55 MG/DL (0.70-1.30); GLOMERULAR FILTRATION RATE > 60.0 (>56); GLUCOSE, FASTING 86 MG/DL (70-105); POTASSIUM SERUM 4.2 MEQ/L (3.5-5.1); SODIUM LEVEL 140 MEQ/L (136-145)
[2016-07-19] MEDS ORDERED: MSIR30TA PO (08:54)
[2016-07-19] MEDS: HEPARIN SOD (PORCINE) 5000 UNITS/ML VIAL SQ SCH (09:00)
[2016-07-19] MEDS: PANTOPRAZOLE 40MG INJ (PROTONIX) (C9113) IV SCH (09:00)
[2016-07-19] MEDS: MULTIVITAMINS CHILDREN'S CHEWABLE TABLET PO SCH (09:53)
[2016-07-19] MEDS: OYSTER SHELL CALCIUM 500 MG TAB PO SCH (09:53)
[2016-07-19] MEDS: VITAMIN D 1,000 INTERNATIONAL UNITS TABLET PO SCH (09:54)
[2016-07-19] MEDS: SENNA 8.6 MG TAB (SENOKOT) PO SCH (09:55)
[2016-07-19] MEDS: CYANOCOBALAMIN 500 MCG TAB PO SCH (09:55)
--- NOTE | 2016-07-19 12:55 | DS.PDOC ---
Discharge Summary General Date of Admission Jul 18, 2016 at 10:35 Date of Discharge Jul 19, 2016 at 10:19 Specialist/Consultants Involve BRYAN Jordan of pain management Discharge Summary PROCEDURES PERFORMED DURING STAY: None. COMPLICATIONS/CHIEF COMPLAINT: Intractable Abdominal Pain ADMISSION DIAGNOSES: 1. . Intractable abdominal pain DISCHARGE DIAGNOSES: 1. . Intractable abdominal pain HISTORY OF PRESENT ILLNESS: 51-year-old male with past medical history of gastric bypass, esophageal stricture status post PEG tube placement, reflux disease, tobacco abuse, chronic back pain, depression, anxiety presented to the ER with a chief complaint of intractable abdominal pain. The patient follows with Dr. Marrero, his primary care physician, who managed his pain with oxycodone 20 g every 4 hours. However, during this time the patient states that he has been having abdominal pain which is worse than the chronic abdominal pain that he usually has at baseline. The patient denies any fevers, chills, shortness of breath, chest pain, nausea, vomiting, or any diarrhea. In the ER, a CT scan from 07/15 revealed no acute findings. The patient was admitted to the hospitalist service for further evaluation and management of his chronic abdominal pain. During the patient's stay here, he was restarted on his tube feeding, as well as a by mouth diet which he tolerated well here. Pain management was consulted to help with transitioning the patient to a by mouth narcotic regimen. The patient was started on morphine sulfate instant release 15 mg every 8 hours when necessary for breakthrough pain as per pain management recommendations. During the patient's hospitalization here, he has been taking his oxycodone 20 mg every 4 hours, and the aforementioned morphine dose with adequate control of his pain. At this time, the patient states that he is feeling better, and notes that his pain is well controlled. The patient will be discharged at this time, with the recommendation of follow-up with his primary care physician, and an outpatient follow-up with pain management for further titration of his medications. I did extensively advise the patient about the risks associated with the high level of narcotics that he is taking, and the increased risk of respiratory depression leading to associated with the medications that he is on. The patient verbalized understanding of this and notes that he will continue to follow-up as an outpatient for further monitoring. DISCHARGE MEDICATIONS: Please see below. ALLERGIES: Please see below. PHYSICAL EXAMINATION ON DISCHARGE: VITAL SIGNS: Please see below. General Exam: Positive: Alert, Cooperative, No Acute Distress ENT Exam: Positive: Atraumatic, Mucous membr. moist/pink Chest Exam: Positive: Clear to auscultation, Normal air movement Heart Exam: Positive: Normal S1, Normal S2, Rate Normal Abdomen Exam: Positive: Other (+PEG Tube, with no surround erythema or tenderness), Soft, Tenderness (Mild tenderness to deep palpation in all 4 quadrants. No rebound tenderness, rigidity, guarding.) Extremity Exam: Negative: Swelling, Tenderness LABORATORY DATA: Please see below. IMAGING: Clinical: Evaluate percutaneous gastrostomy tube. Comparison: 06/23/2016. Findings: A percutaneous gastrostomy tube extends through the midline anterior abdominal wall to the right of midline and appears to be intraluminal with small amount of intraluminal contrast identified adjacent to the peg tube. High-density contrast material in the mid abdomen extending to the left upper quadrant is unchanged compared to prior examination and may be related to prior surgery. A small portion of suspected old catheter is identified within this portion of the presumed residual stomach (images 23 - 30). The small and large bowel is without obstruction. Liver, spleen, pancreas, bilateral adrenal glands and left kidney are normal for noncontrast examination. Right kidney in demonstrates 10 mm nonobstructing calculus. The patient is status post cholecystectomy. Pelvis demonstrates normal bladder and moderately prominent prostate gland as well as small amount of free fluid in the pelvis of uncertain etiology possibly related to recent surgery. Skeletal structures demonstrate prior posterior fusion and laminectomy. Lung bases are clear. Impression: 1. New percutaneous gastrostomy tube extends into the enteric lumen without extravasation. 2. Small amount of free fluid in the pelvis possibly related to recent procedure. 3. No free air or bowel obstruction. VTE Prophylaxis ordered?: Yes DISCHARGE CONDITION: Stable. DISPOSITION: . Home ACTIVITY: . As tolerated DIET: . As tolerated DISCHARGE PLAN AND INSTRUCTIONS: 1. . Follow-up with primary care physician within one week 2. . Obtain pain management referral, and follow-up with [facility] pain management as discussed TIME SPENT ON DISCHARGE: Greater than 30 minutes. Vital Signs/I&Os Vital Signs Date Time Temp Pulse Resp B/P Pulse Ox O2 Delivery O2 Flow Rate FiO2 07/19/16 09:54 18 07/19/16 06:00 97.8 73 86/53 99 Room Air I&O- Last 24 Hours up to 6 AM 07/19/16 05:59 Intake Total 1637 ml Output Total 1850 ml Balance -213 ml Laboratory Data Labs 24H Laboratory Tests 2 07/19/16 06:14: Anion Gap 6L, Blood Urea Nitrogen 11, Creatinine 0.55L, Sodium Level 140, Potassium Level 4.2, Chloride Level 102, Carbon Dioxide Level 32, Calcium Level 7.8L, Glomerular Filtration Rate > 60.0 CBC/BMP Laboratory Tests 07/19/16 06:14 Calcium Level 7.8 L, Red Blood Count 3.16 L, Mean Corpuscular Volume 92.9, Mean Corpuscular Hemoglobin 30.3, Mean Corpuscular Hemoglobin Concent 32.6, Red Cell Distribution Width 14.1 Medications Scheduled (Tab-A-Christian) 1 Tab Tab 1 TAB PO BID (Reported) (Oysco 500) 500 Mg Tab 500 MG PO BID (Reported) Cholecalciferol (Vitamin D-3) 2,000 Unit Tab 2,000 UNIT PO DAILY (Reported) Cyanocobalamin (Vitamin B-12) 500 Mcg Tab 500 MCG PO DAILY (Reported) Mirtazapine (Mirtazapine) 45 Mg Tab 45 MG PO QHS (Reported) Multivitamins Chewable *[facility] STOCKED* (Animal Shapes with C & FA *[facility] STOCKED*) 1 Tab Chew 1 TAB PO DAILY (Reported) Omeprazole (Omeprazole) 40 Mg Cap 40 MG PO BID (Reported) Oxycodone Hcl (Oxycodone HCl) 20 Mg Tab 20 MG PO Q4H (Reported) Senna (Senna Lax) 8.6 Mg Tab 1 TAB PO BID (Reported) Sucralfate (Sucralfate) 1 Gm/10 Ml Mariia 10 ML PO QID (Reported) Zinc Gluconate (Zinc Gluconate) 50 Mg Tab 50 MG PO DAILY (Reported) Scheduled PRN Morphine Sulfate (Morphine Sulfate) 30 Mg Tab 15 MG PO Q8HP PRN PRN SEVERE PAIN (PS 8-10) Allergies Coded Allergies: No Known Allergies (Verified Allergy, Unknown, 11/28/02) NILAD WHALEY MD Jul 19, 2016 12:55
== END 2016-07-19 10:19 | disposition home or self-care (01) | DRG 251 ==
LOC: M ED 22:56 → M ED INP 07-16 01:27 → M MS5PR 07-16 03:45 → OBSVTOIN 07-18 10:35
PROVIDERS: ADMIT General Practice; ATTEND Internal Medicine
DX: R10.13 Epigastric pain (principal); F11.20 Opioid dependence, uncomplicated; K22.2 Esophageal obstruction; E56.9 Vitamin deficiency, unspecified; Z93.1 Gastrostomy status; R10.31 Right lower quadrant pain; K21.9 Gastro-esophageal reflux disease without esophagitis; M96.1 Postlaminectomy syndrome, not elsewhere classified; F17.210 Nicotine dependence, cigarettes, uncomplicated; G89.28 Other chronic postprocedural pain; F41.8 Other specified anxiety disorders; Z98.84 Bariatric surgery status; Z79.899 Other long term (current) drug therapy; Z90.49 Acquired absence of other specified parts of digestive tract; Z79.82 Long term (current) use of aspirin; Z83.3 Family history of diabetes mellitus; Z80.3 Family history of malignant neoplasm of breast

== ENCOUNTER 2016-07-23 10:20 | Emergency (ER) | payer OTHER, MEDICARE ==
[~2016-07-23] VITALS: Ht 180.3 cm; Wt 45.4 kg
[~2016-07-23 10:20] MED LIST changes: +MSIR30TA PO; +VITA500T3 PO; +VITACHTA PO
[2016-07-23] MEDS ORDERED: DICYCLOMINE INJ 20MG/2ML (J0500) IM ONE (11:30)
[2016-07-23] MEDS ORDERED: METOCLOPRAMIDE INJ 10MG/2ML VIAL (J2765) IV ONE (11:30)
[2016-07-23] MEDS ORDERED: PANTOPRAZOLE 40MG INJ (PROTONIX) (C9113) IV ONE (11:30)
[2016-07-23] MEDS ORDERED: NS 1,000 ML IV ONE (11:30)
[2016-07-23 11:40] LABS: BASO % 0.2 % (0.0-1.0); EOS # 0.1 K/mm3 (0.0-0.50); EOS % 1.2 % (0.0-3.0); LARGE UNSTAINED CELL # 0.1 K/mm3 (0.0-0.4); LARGE UNSTAINED CELL % 1.6 % (0.0-4.0); LYMPH # 0.8 K/mm3 (1.5-4.5); LYMPH % 10.9 % (24.0-44.0); MEAN CORPUSCULAR HEMOGLOBIN 30.1 pg (27.0-33.0); MEAN CORPUSCULAR HGB CONC 32.6 g/dl (32.0-36.5); MEAN CORPUSCULAR VOLUME 92.2 fl (80.0-96.0); MONO # 0.3 K/mm3 (0.0-0.8); MONO % 3.6 % (0.0-5.0); NEUTROPHILS # 6.3 K/mm3 (1.8-7.7); NEUTROPHILS % 82.5 % (36.0-66.0); PLATELET COUNT, AUTOMATED 220 k/mm3 (150-450); RED CELL DISTRIBUTION WIDTH 14.1 % (11.5-14.5); WHITE BLOOD COUNT 7.6 K/mm3 (4.0-10.0)
[2016-07-23 12:18] LABS: ALBUMIN 3.2 GM/DL (3.2-5.2); ALBUMIN/GLOBULIN RATIO 0.71 (1.00-1.93); ALKALINE PHOSPHATASE 222 U/L (45-117); ALT/SGPT 22 U/L (12-78); AMYLASE 35 U/L (25-115); ANION GAP 7 MEQ/L (8-16); AST/SGOT 17 U/L (15-37); BILIRUBIN,DIRECT 0.2 MG/DL (0.0-0.2); BILIRUBIN,TOTAL 0.5 MG/DL (0.2-1.0); BLOOD UREA NITROGEN 14 MG/DL (7-18); CALCIUM LEVEL 8.9 MG/DL (8.5-10.1); CARBON DIOXIDE LEVEL 28 MEQ/L (21-32); CHLORIDE LEVEL 107 MEQ/L (98-107); CREATININE FOR GFR 0.64 MG/DL (0.70-1.30); GLOMERULAR FILTRATION RATE > 60.0 (>56); GLUCOSE, FASTING 89 MG/DL (70-105); MAGNESIUM LEVEL 2.4 MG/DL (1.8-2.4); POTASSIUM SERUM 3.9 MEQ/L (3.5-5.1); SODIUM LEVEL 142 MEQ/L (136-145); TOTAL PROTEIN 7.7 GM/DL (6.4-8.2)
[2016-07-23] MEDS ORDERED: HYDROmorphone HCL 1 MG/ML SYRINGE (J1170) IV ONE ×2 (12:45→14:45)
--- NOTE | 2016-07-23 13:12 | REP ---
ABDOMEN, FLAT AND UPRIGHT, PA CHEST: HISTORY: Abdominal pain. COMPARISON: 07/15/2016. Air is present in small and large intestine. Several air fluid levels are present. There are no dilated loops of intestine. There is no pneumoperitoneum. A gastrostomy tube is present. Surgical clips are present in the right upper quadrant. The patient is status post L5-S1 anterior and posterior spinal fusion. The lungs are clear. IMPRESSION: Nonspecific bowel gas pattern. Signed by Rian López MD 07/23/2016 01:26 P
[2016-07-23] MEDS ORDERED: MORP-38 PO (14:49)
[2016-07-23 15:15] VITALS: BP 100/67
--- NOTE | 2016-07-23 17:40 | ECGEPIP ---
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 Order Number: [id number] Reading MD: Smith Enamorado Measurements Intervals [place] Rate: 50 P: 46 WI: 155 QRS: -7 QRSD: 97 T: 53 QT: 439 QTc: 401 Interpretive Statements SINUS BRADYCARDIA LOW QRS VOLTAGE IN EXTREMITY LEADS SIMILAR TO 07/15/16 Electronically Signed On 07-23-2016 17:40:17 EST by Smith Enamorado
[2016-08-04] MEDS ORDERED: MORP15TA2 PO (12:30)
== END 2016-07-23 15:17 | disposition home or self-care (01) ==
LOC: M ED 12:31
DX: G89.29 Other chronic pain (principal); R10.9 Unspecified abdominal pain; R19.7 Diarrhea, unspecified; G47.30 Sleep apnea, unspecified; Z98.84 Bariatric surgery status; M19.90 Unspecified osteoarthritis, unspecified site; F41.9 Anxiety disorder, unspecified; F32.9 Major depressive disorder, single episode, unspecified; Z86.19 Personal history of other infectious and parasitic diseases; Z87.09 Personal history of other diseases of the respiratory system; Z79.899 Other long term (current) drug therapy
CPT/HCPCS: 74022; 80048; 80076; 82150; 83690; 83735; 85025; 93005; 93041; 96361; 96374; 96375; 96376; 99285; C9113; J0500; J1170; J2765

== ENCOUNTER 2016-07-31 04:25 | Inpatient (IN) | payer MEDICARE, OTHER ==
[~2016-07-31] VITALS: Ht 180.3 cm; Wt 57.1 kg
[2016-07-31] VITALS (10 sets, daily range): BP systolic 92–116; BP diastolic 64–76
[~2016-07-31 04:25] MED LIST changes: +MORP-38 PO
[2016-07-31] MEDS ORDERED: ONDA4TAB6 PO (04:53)
[2016-07-31] MEDS ORDERED: ONDANSETRON 4MG/2ML VIAL (J2405) IV ONE ×2 (05:15→05:45)
[2016-07-31] MEDS ORDERED: FAMOTIDINE IV BAG 20 MG in APPROPRIATE DILUENT 1 EA IV ONE (05:15)
[2016-07-31] MEDS ORDERED: HYDROmorphone HCL 1 MG/ML SYRINGE (J1170) IV ONE ×3 (05:45→09:00)
[2016-07-31 06:02] LABS: BASO % 0.3 % (0.0-1.0); EOS % 1.7 % (0.0-3.0); LARGE UNSTAINED CELL % 1.6 % (0.0-4.0); LYMPH # 0.5 K/mm3 (1.5-4.5); LYMPH % 17.9 % (24.0-44.0); MEAN CORPUSCULAR HEMOGLOBIN 30.5 pg (27.0-33.0); MEAN CORPUSCULAR HGB CONC 33.3 g/dl (32.0-36.5); MEAN CORPUSCULAR VOLUME 91.5 fl (80.0-96.0); MONO # 0.2 K/mm3 (0.0-0.8); NEUTROPHILS # 1.8 K/mm3 (1.8-7.7); NEUTROPHILS % 72.6 % (36.0-66.0); PLATELET COUNT, AUTOMATED 197 k/mm3 (150-450); RED CELL DISTRIBUTION WIDTH 14.1 % (11.5-14.5); WHITE BLOOD COUNT 2.5 K/mm3 (4.0-10.0)
[2016-07-31 06:25] LABS: ALBUMIN 2.7 GM/DL (3.2-5.2); ALBUMIN/GLOBULIN RATIO 0.68 (1.00-1.93); ALKALINE PHOSPHATASE 126 U/L (45-117); ALT/SGPT 11 U/L (12-78); ANION GAP 7 MEQ/L (8-16); AST/SGOT 13 U/L (15-37); BILIRUBIN,DIRECT 0.4 MG/DL (0.0-0.2); BILIRUBIN,TOTAL 0.7 MG/DL (0.2-1.0); BLOOD UREA NITROGEN 10 MG/DL (7-18); CALCIUM LEVEL 7.9 MG/DL (8.5-10.1); CARBON DIOXIDE LEVEL 30 MEQ/L (21-32); CHLORIDE LEVEL 103 MEQ/L (98-107); CREATININE FOR GFR 0.56 MG/DL (0.70-1.30); GLOMERULAR FILTRATION RATE > 60.0 (>56); GLUCOSE, FASTING 86 MG/DL (70-105); POTASSIUM SERUM 3.8 MEQ/L (3.5-5.1); SODIUM LEVEL 140 MEQ/L (136-145); TOTAL PROTEIN 6.7 GM/DL (6.4-8.2)
[2016-07-31] MEDS ORDERED: NS 1,000 ML IV ONE (07:15)
[2016-07-31] MEDS ORDERED: ISOVUE-370 76% 100ML VIAL (Q9967) As Ordered ONE (07:41)
--- NOTE | 2016-07-31 08:21 | REP ---
Chest x-ray: Three views. History: Abdominal pain. Comparison study: July 23, 2016. Findings: The lungs are symmetrically aerated and no infiltrate is seen. Heart size is normal. Pulmonary vasculature is not increased. There is an area of increased density in the right lateral pleural angle on today's PA chest radiograph which could be a an early infiltrate. Lung hernandez are otherwise clear. Heart is not enlarged. No free subdiaphragmatic air is seen. Pleural angles are sharp. No bony abnormality is seen. Impression: Question right lower lobe infiltrate. Signed by Steven Fontaine MD 07/31/2016 09:06 A
[2016-07-31] MEDS ORDERED: NS 1,000 ML IV SCH (08:35)
--- NOTE | 2016-07-31 08:35 | REP ---
CT study of the abdomen and pelvis with IV but without oral contrast: History: Abdominal pain. Comparison study July 15, 2016. CT contrast dose: 100 ml of Isovue [address] findings: Preliminary digital tank pumper panelboard radiograph demonstrates a feeding tube in the upper abdomen along with right upper quadrant clips and L5-S1 fusion hardware. Bowel gas pattern is unremarkable. The lung bases are clear on axial CT images. There is mild linear fibrosis in the right middle lobe. There is a small stable hemangioma in the right lobe of the liver on contrast enhanced CT study measuring 10 mm in greatest diameter unchanged from the April 01, 2015 prior study. There are two or three other areas of hypervascularity in the right hepatic lobe more inferiorly and in the left lobe which also appear to be unchanged from prior exams dating back to April 2014. The spleen is unremarkable. No adrenal lesion is seen on either side. There is a small quantity of ascites anterior to the liver in the upper abdomen on today's CT. This is a little more prominent than on the June 2016 study. Gastrostomy tube is seen in place terminating in the right upper quadrant in the region of the pylorus. A 4 cm linear catheter fragment is again seen intraluminally in the body of the stomach. No pancreatic lesion is seen. The gallbladder is absent surgically. There is a small cyst in the upper pole of the right kidney and an even smaller cyst in the lower pole of the left kidney. A 8 mm calculus is noted in the renal pelvis on the right. There is no evidence of hydronephrosis. This is unchanged. Small and large bowel loops are unremarkable in the upper abdomen. Sutures are noted in the left mid abdomen. There is a small quantity of fluid in the pelvic reflections. This is unchanged from July 15, 2016. No large or small bowel dilation is seen. Prostate, seminal vesicles and urinary bladder are unremarkable. Normal caliber aorta is seen. No bony destructive lesion noted. No abdominal wall defect is seen. Impression: 1. Feeding gastrostomy tube in the right upper quadrant near the pylorus. 2. 4 cm old retained catheter fragment again seen in the lumen of the stomach. 3. Post gastric bypass. 4. 8 mm nonobstructive intrarenal calculus right kidney. 5. Small amount of ascites. 6. Patient status post lumbosacral spine fusion. 7. No evidence of obstructive lesion or hernia. No free air seen. Findings quite similar to the most recent prior study July 15, 2016. Signed by Steven Fontaine MD 07/31/2016 09:06 A
[2016-07-31] MEDS ORDERED: diphenhydrAMINE INJ 50MG/ML VIAL (J1200) IV PRN ×2 (08:45→09:30)
[2016-07-31] MEDS ORDERED: ONDANSETRON 4MG/2ML VIAL (J2405) IV PRN (08:45)
[2016-07-31] MEDS ORDERED: NALBUPHINE HCL 10 MG/ML AMP (J2300) IV PRN ×2 (08:45→09:30)
[2016-07-31] MEDS ORDERED: EPIDURAL/PCA KEYS XX PRN (08:45)
[2016-07-31] MEDS ORDERED: NALOXONE INJ 0.4 MG/1 ML VIAL (J2310) IV PRN (08:45)
[2016-07-31] MEDS: MULTIVITAMINS CHILDREN'S CHEWABLE TABLET PO SCH (09:00)
[2016-07-31] MEDS: NS 1,000 ML IV SCH ×2 (11:27→20:46)
[2016-07-31] MEDS: MORPHINE PCA 1MG/ML 100ML CADD IV PRN (11:27)
[2016-07-31] MEDS: ENOXAPARIN 40 MG/0.4 ML SYRINGE (J1650) SC SCH (11:27)
[2016-07-31] MEDS: OYSTER SHELL CALCIUM 500 MG TAB PO SCH ×2 (13:24→20:46)
[2016-07-31] MEDS: OMEPRAZOLE 20 MG CAP PO SCH ×2 (13:24→20:46)
[2016-07-31] MEDS: SUCRALFATE SUSP 1GM/10ML UD PO SCH ×3 (13:24→20:46)
[2016-07-31] MEDS: VITAMIN D 1,000 INTERNATIONAL UNITS TABLET PO SCH (13:24)
[2016-07-31] MEDS: CYANOCOBALAMIN 500 MCG TAB PO SCH (13:24)
--- NOTE | 2016-07-31 18:06 | HPE ---
DATE OF ADMISSION: 07/31/2016 PRIMARY CARE PHYSICIAN: Dr. Marrero CHIEF COMPLAINT: Abdominal pain. HISTORY OF PRESENT ILLNESS: This is a 51-year-old male with a history of gastric bypass surgery with chronic abdominal pain, admitted on 07/16/2016 to hospitalist service, discharged 07/19/2016. He presented to the emergency room with complaints of 3 days of nausea, vomiting, diarrhea, as well as intractable abdominal pain in the epigastric region, radiating throughout the abdomen with no dysuria, urgency, frequency, fever, or chills. Patient had been having nausea and vomiting for the past 3-4 days, one to two daily. Diarrhea was watery, profuse, about once daily. Has currently subsided. He follows with Dr. Delarosa at [facility] in [place], [place], on chronic oxycodone 200 mg every [address] Marrero. Has history of esophageal stricture with percutaneous endoscopic gastrostomy (PEG) tube placement that was recently changed due to mechanical fall causing it to break. He does have a prior history of depression, anxiety, reflux, and tobacco abuse. Despite being seen by pain management, patient was unable to followup with pain management as outpatient. He presents to the emergency room for worsening pain. Repeat CT abdomen and pelvis shows the PEG tube catheter terminating in the region of the stomach with no other acute findings, unchanged from prior June 2016 changes. PAST MEDICAL HISTORY: 1. Esophageal stricture. 2. Gastric bypass. 3. Reflux disease. 4. Tobacco abuse. 5. Chronic back pain. 6. Depression. 7. Anxiety. PAST SURGICAL HISTORY: 1. Right arm tendon repair. 2. Gastric bypass 2012, Dr. Delarosa at [facility] in [place], [place]. 3. Appendectomy. 4. Back surgery. 5. Cholecystectomy. 6. Right hand surgery. 7. Repair of the feeding tube. 8. PEG tube placement 2017. HOME MEDICATIONS: - aspirin 81 daily - Carafate 10 mL four times daily - vitamin B12 at 1000 mcg every 3 days - multivitamin one tablet daily - Prilosec 40 mg twice a day - Senokot-S two tablets twice a day - vitamin D - zinc gluconate 50 mg daily SOCIAL HISTORY: Smokes cigarettes, about a half pack a day for the past 25 years. Previously smoked marijuana. Last use was a month ago. Denies alcohol abuse. Currently lives with his and his son. FAMILY HISTORY: Three brothers, three sisters. One sister with aneurysm. Father passed due to diabetes. Mother passed due to breast cancer. REVIEW OF SYSTEMS: Denies fevers, chills, night sweats, weight loss. Denies visual changes, sinusitis, dysphagia. Current PEG tube. Nausea, vomiting, and diarrhea for the past 3 days. No hematochezia, melena, diarrhea. A 12-point review of systems negative aside from positive findings in history of present illness (HPI). PHYSICAL EXAMINATION: Temperature 99.9, pulse 51, respiratory rate 18, blood pressure 106/74, 97% on room air. GENERAL: Awake, alert, oriented times three, answering questions appropriately. Appears older than his stated age, cachectic. No respiratory distress. No cyanosis. No use of respiratory accessory muscles. Anicteric sclerae. No jaundice. No jugular venous distention, thyromegaly. Dry mucous membranes. LUNGS: Clear to auscultation. No wheezes, rales, or rhonchi. HEART: S1, S2, sinus rhythm. ABDOMEN: Soft. Slightly tender diffusely. No rebound. No guarding. Some erythema around the PEG tube site. No purulent drainage. EXTREMITIES: No cyanosis, clubbing, or pitting edema. LABORATORY DATA: White count 2.5, hemoglobin 10, hematocrit 31, platelet count 197, 72% neutrophils. Sodium 140, potassium 3.8, chloride 103, bicarbonate 30, BUN 10, creatinine 0.56 , glucose 86, lactic acid 0.7, calcium 7.9. Direct bilirubin 0.4, AST 13, ALT 11, alkaline phosphatase 126, total protein 6.7, albumin 2.7, lipase 48. Microbiology: Pending. CT abdomen and pelvis unchanged from prior. No acute intra-abdominal pathology. ASSESSMENT AND PLAN: This is a 51-year-old male with a history of gastric bypass surgery, chronic abdominal pain, and back pain, follows with Dr. Marrero and Dr. Delarosa, [facility] in [place] with chronic esophageal stricture requiring dilation. Was recently admitted in June. Returns with similar complaints. Currently now with nausea, vomiting, and diarrhea. Patient will be admitted as an inpatient for the following issues: 1. Intractable abdominal pain, currently with diarrhea, nausea, and vomiting. No acute findings on CT abdomen and pelvis and laboratory data. Will consult pain management. Evaluate for infectious etiology. Check urinalysis (UA), urine culture and sensitivity, gastrointestinal (GI) panel. Start on IV morphine patient-controlled analgesia (HEAD OF MARKETING ADOMETRY) pump and defer to pain management for transitioning to oral medications. 2. History of gastric bypass, chronic abdominal pain. Follows with Dr. Delarosa. Chronic oxycodone, managed by Dr. Marrero. Pain management has been consulted. 3. History of esophageal stricture and chronic tube feedings. Resume tube feedings, same regimen. Nutrition consult and check prealbumin level. 4. History of reflux, on proton pump inhibitor (PPI) twice a day. Carafate for possible gastritis from history of gastric bypass. 5. History of opiate abuse and dependency. Defer to pain management. 6. Chronic back pain. Defer to pain management. 7. Vitamin deficiency secondary to gastric bypass. Continue home vitamin supplements. 8. Deep vein thrombosis (DVT) prophylaxis with subcutaneous Lovenox. MTDD
[2016-07-31] MEDS: MIRTAZAPINE 15 MG TAB PO SCH (20:46)
[2016-08-01 02:00] VITALS: BP 102/66
[2016-08-01] MEDS: MORPHINE PCA 1MG/ML 100ML CADD IV PRN (02:15)
[2016-08-01 06:00] VITALS: BP 93/64
[2016-08-01] MEDS: NS 1,000 ML IV SCH ×2 (06:22→14:35)
[2016-08-01 06:49] LABS: BASO % 0.4 % (0.0-1.0); EOS # 0.1 K/mm3 (0.0-0.50); EOS % 4.6 % (0.0-3.0); LARGE UNSTAINED CELL # 0.1 K/mm3 (0.0-0.4); LARGE UNSTAINED CELL % 3.2 % (0.0-4.0); LYMPH # 1.2 K/mm3 (1.5-4.5); LYMPH % 40.8 % (24.0-44.0); MEAN CORPUSCULAR HEMOGLOBIN 30.4 pg (27.0-33.0); MEAN CORPUSCULAR HGB CONC 32.8 g/dl (32.0-36.5); MEAN CORPUSCULAR VOLUME 92.8 fl (80.0-96.0); MONO # 0.2 K/mm3 (0.0-0.8); MONO % 8.3 % (0.0-5.0); NEUTROPHILS # 1.2 K/mm3 (1.8-7.7); NEUTROPHILS % 42.6 % (36.0-66.0); PLATELET COUNT, AUTOMATED 160 k/mm3 (150-450); RED CELL DISTRIBUTION WIDTH 14.2 % (11.5-14.5); WHITE BLOOD COUNT 2.8 K/mm3 (4.0-10.0)
[2016-08-01 07:02] LABS: ALBUMIN 2.2 GM/DL (3.2-5.2); ALBUMIN/GLOBULIN RATIO 0.65 (1.00-1.93); ALKALINE PHOSPHATASE 101 U/L (45-117); ALT/SGPT 11 U/L (12-78); ANION GAP 7 MEQ/L (8-16); AST/SGOT 14 U/L (15-37); BILIRUBIN,TOTAL 0.4 MG/DL (0.2-1.0); BLOOD UREA NITROGEN 7 MG/DL (7-18); CALCIUM LEVEL 7.8 MG/DL (8.5-10.1); CARBON DIOXIDE LEVEL 28 MEQ/L (21-32); CHLORIDE LEVEL 108 MEQ/L (98-107); CREATININE FOR GFR 0.48 MG/DL (0.70-1.30); GLOMERULAR FILTRATION RATE > 60.0 (>56); GLUCOSE, FASTING 67 MG/DL (70-105); POTASSIUM SERUM 3.4 MEQ/L (3.5-5.1); SODIUM LEVEL 143 MEQ/L (136-145); TOTAL PROTEIN 5.6 GM/DL (6.4-8.2)
[2016-08-01] MEDS: ENOXAPARIN 40 MG/0.4 ML SYRINGE (J1650) SC SCH (08:57)
[2016-08-01] MEDS: oxyCODONE 5MG TAB PO SCH ×4 (08:58→20:10)
[2016-08-01] MEDS: SUCRALFATE SUSP 1GM/10ML UD PO SCH ×4 (08:58→20:09)
[2016-08-01] MEDS: OMEPRAZOLE 20 MG CAP PO SCH ×2 (08:59→20:09)
[2016-08-01] MEDS: CYANOCOBALAMIN 500 MCG TAB PO SCH (08:59)
[2016-08-01] MEDS: OYSTER SHELL CALCIUM 500 MG TAB PO SCH ×2 (08:59→20:09)
[2016-08-01] MEDS: VITAMIN D 1,000 INTERNATIONAL UNITS TABLET PO SCH (08:59)
[2016-08-01] MEDS: MULTIVITAMINS CHILDREN'S CHEWABLE TABLET PO SCH (09:00)
[2016-08-01] MEDS: MORPHINE 2 MG/ML 1ML SYRINGE IV PRN ×4 (10:02→21:28)
[2016-08-01] MEDS ORDERED: POTASSIUM CHLORIDE 10 MEQ SR TABLET PO ONE (10:45)
[2016-08-01 14:00] VITALS: BP_SYST 103; BP_SYST 99; BP_DIAS 57; BP_DIAS 67
[2016-08-01] MEDS ORDERED: NS 1,000 ML IV ONE (14:00)
--- NOTE | 2016-08-01 14:42 | CR ---
DATE OF CONSULTATION: 08/01/2016 CHIEF COMPLAINT: Abdominal pain. Edwar is a 51-year-old gentleman who I saw for a consult at his last admission for the same problem on 07/16/2016. He has chronic abdominal pain secondary to gastric bypass, which is all covered under a workman's compensation claim and handled by Dr. Marrero and Dr. Delarosa. He never had a referral to the [place] [facility] and tells me that Dr. Delarosa, as well as Dr. Dominguez, are with working on referring him to a [place] pain center. I again recommend that he consider referral to behavioral health to assist with reducing his daily opiate consumption. He rates his pain level as a 9/10. He is laying calmly in bed. No acute distress. We talked briefly again about dorsal column stimulator and he should discuss that with pain management in [place] via Workman's Compensation. The pain is located generally around the abdomen. PAST MEDICAL HISTORY: Esophageal stricture. Gastric bypass. Reflux disease. Tobacco abuse. Chronic back pain. Depression. Anxiety. SURGICAL HISTORY: Right arm tendon repair. Appendectomy. Back surgery. Gastric bypass surgery 2012. Cholecystectomy. Right hand surgery. SOCIAL HISTORY: Currently smokes about half a pack per day. Reports a periodic use of marijuana. Denies alcohol abuse. Lives with his and son. FAMILY HISTORY: Three brothers and three sisters. One with an aneurysm. Father passed due to diabetes. Mother due to breast cancer. REVIEW OF SYSTEMS: 11-point review of systems reveals only pertinent positives in the history of present illness. PHYSICAL EXAMINATION: GENERAL: Awake, alert, pleasant. VITAL SIGNS: 98.6, 64, 14, 114/86, oxygen saturation 97% on room air. CARDIAC: S1 and S2, normal rate and rhythm. RESPIRATORY: Lung sounds clear. Respirations nonlabored. ABDOMEN: Tenderness with palpation around PEG tube. Tenderness over LS axis. Tenderness over sacral paraspinal area. ASSESSMENT: 1. Chronic opioid dependency. 2. Chronic postoperative abdominal pain. 3. Post laminectomy pain syndrome. PLAN: He seems to be receptive to consider other options than his current opioid regimen upon discharge. That would be Dr. Marrero's decision and/or referrals to be made. He is aware of dorsal column stimulator therapy and would discuss this with Dr. Delarosa, his divinity teacher in [place]. I would continue his current regimen of chronic pain medications to include oxycodone 20 mg every 4 hours as needed. Consider short-acting MSIR 15 mg every 6-8 hours as needed for severe pain episodes and would recommend dispensing a small amount until he can followup with Dr. Marrero. In other words, no new recommendations other than what was recommended at 07/16/2016 visit.
[2016-08-01] MEDS: MIRTAZAPINE 15 MG TAB PO SCH (20:09)
[2016-08-01 22:00] VITALS: BP 100/66
[2016-08-02] VITALS (7 sets, daily range): BP systolic 96–108; BP diastolic 58–70
[2016-08-02] MEDS: VANCOMYCIN ORAL SOL 250MG/5ML ORAL SYRINGE PO SCH ×5 (00:09→23:24)
[2016-08-02] MEDS: oxyCODONE 5MG TAB PO SCH ×7 (00:09→23:24)
[2016-08-02] MEDS: NS 1,000 ML IV SCH ×3 (00:35→19:12)
[2016-08-02] MEDS: MORPHINE 2 MG/ML 1ML SYRINGE IV PRN ×7 (01:19→19:30)
[2016-08-02 06:35] LABS: BASO % 0.3 % (0.0-1.0); EOS # 0.2 K/mm3 (0.0-0.50); EOS % 3.9 % (0.0-3.0); LARGE UNSTAINED CELL # 0.1 K/mm3 (0.0-0.4); LARGE UNSTAINED CELL % 2.8 % (0.0-4.0); LYMPH # 0.9 K/mm3 (1.5-4.5); LYMPH % 24.2 % (24.0-44.0); MEAN CORPUSCULAR HEMOGLOBIN 29.9 pg (27.0-33.0); MEAN CORPUSCULAR HGB CONC 31.9 g/dl (32.0-36.5); MEAN CORPUSCULAR VOLUME 93.7 fl (80.0-96.0); MONO # 0.3 K/mm3 (0.0-0.8); NEUTROPHILS # 2.3 K/mm3 (1.8-7.7); NEUTROPHILS % 60.9 % (36.0-66.0); PLATELET COUNT, AUTOMATED 177 k/mm3 (150-450); RED CELL DISTRIBUTION WIDTH 13.8 % (11.5-14.5); WHITE BLOOD COUNT 3.8 K/mm3 (4.0-10.0)
[2016-08-02 06:49] LABS: ALBUMIN 2.1 GM/DL (3.2-5.2); ALKALINE PHOSPHATASE 104 U/L (45-117); ALT/SGPT 11 U/L (12-78); ANION GAP 7 MEQ/L (8-16); AST/SGOT 14 U/L (15-37); BILIRUBIN,TOTAL 0.2 MG/DL (0.2-1.0); BLOOD UREA NITROGEN 5 MG/DL (7-18); CALCIUM LEVEL 7.4 MG/DL (8.5-10.1); CARBON DIOXIDE LEVEL 23 MEQ/L (21-32); CHLORIDE LEVEL 111 MEQ/L (98-107); GLOMERULAR FILTRATION RATE > 60.0 (>56); GLUCOSE, FASTING 118 MG/DL (70-105); POTASSIUM SERUM 3.9 MEQ/L (3.5-5.1); SODIUM LEVEL 141 MEQ/L (136-145); TOTAL PROTEIN 5.6 GM/DL (6.4-8.2)
[2016-08-02] MEDS ORDERED: POTASSIUM CHLORIDE 10 MEQ SR TABLET PO ONE (07:00)
[2016-08-02] MEDS ORDERED: NS 1,000 ML IV ONE (07:00)
[2016-08-02] MEDS ORDERED: INFLUENZA QUADRIVALENT PF VACCINE 0.5ML SYRINGE/VIAL (90686) IM ONE (09:00)
--- NOTE | 2016-08-02 09:20 | IPN ---
DATE: 08/01/2016 Patient has been having solid bowel movements. No diarrhea. No nausea or vomiting. Patient has been kept on water flushes overnight until break off worker can see him and re-evaluate his caloric needs. He currently still complains of 9/10 pain in epigastric region that is radiating throughout the abdomen. There is no discharge. There is no dislocation of the feeding tube. Currently, has had no fevers. Vital signs: Temperature is 96.4, pulse 64, respiratory rate 16, blood pressure 114/86, 97% on room air. Generally awake, alert, oriented times three. Answers questions appropriately. Patient is anicteric. No jaundice. He is in no respiratory distress. Speaks in full sentences. He appears older than his stated age and appears cachectic. Lungs are clear to auscultation. No wheezing, rales or rhonchi. Heart: S1, S2, sinus rhythm. Abdomen is soft, tender diffusely. No rebound or guarding. Positive bowel sounds. Feeding tube appears to be clean, dry. Extremities: No cyanosis, clubbing or pitting edema. CBC and metabolic panel have been reviewed. ASSESSMENT AND PLAN: This is a 51-year-old male with prior history of gastric bypass done by Dr. Delarosa in [place] in 2012, has had a PEG tube placement and repair of the feeding tube due to mechanical issue, had been previously admitted about 2 weeks ago for the same issues with chronic pain, unable to have followup appointment with the pain clinic, returns with similar complaints of chronic abdominal pain, now with nausea, vomiting, diarrhea, but has had formed stool during this hospital stay and no recurrent nausea or vomiting. IMPRESSION: 1. Intractable abdominal pain. GI panel has been ordered. However, patient is having solid stools at the moment. We have consulted pain management and no infectious etiology that we can see right now, no empiric antibiotics, currently on intravenous (IV) morphine as needed. Patient controlled analgesia (CIVIL RIGHTS INVESTIGATOR) pump has been discontinued as he is placed back on oxycodone 20 mg every 4 hours. 2. History of gastric bypass with chronic abdominal pain. Has an appointment with Dr. Delarosa next week for dilation for history of esophageal stricture. He currently has chronic pain managed by Dr. Marrero. Patient was comfortable with MSIR 15 mg three times a day prescribed by Dr. Garcia during the previous discharge. Currently off of morphine CIVIL RIGHTS INVESTIGATOR pump. IV morphine as needed. We have consulted pain management and to have pain management followup appointment hopefully within 1 week of discharge. Plans of discharge will be for Thursday or Thursday. 3. History of esophageal stricture. Patient is scheduled to have dilation by Dr. Delarosa in [place] at [facility] next week. He states that there is no change in the dysphagia that he chronically has. No signs of aspiration. Currently with feeding tube and enteral feeding. 4. History of reflux. On proton pump inhibitor (PPI), Carafate for possible gastritis from history of gastric bypass. 5. History of opiate abuse and dependency. Defer to pain management. 6. PEG tube with chronic malnutrition. Nutrition consult and resume feeding tube and water flushes.
[2016-08-02] MEDS: ENOXAPARIN 40 MG/0.4 ML SYRINGE (J1650) SC SCH (10:23)
[2016-08-02] MEDS: VITAMIN D 1,000 INTERNATIONAL UNITS TABLET PO SCH (10:24)
[2016-08-02] MEDS: OMEPRAZOLE 20 MG CAP PO SCH ×2 (10:24→20:28)
[2016-08-02] MEDS: MULTIVITAMINS CHILDREN'S CHEWABLE TABLET PO SCH (10:24)
[2016-08-02] MEDS: SUCRALFATE SUSP 1GM/10ML UD PO SCH ×4 (10:24→20:27)
[2016-08-02] MEDS: CYANOCOBALAMIN 500 MCG TAB PO SCH (10:24)
[2016-08-02] MEDS: OYSTER SHELL CALCIUM 500 MG TAB PO SCH ×2 (10:25→20:28)
[2016-08-02] MEDS: MIRTAZAPINE 15 MG TAB PO SCH (20:28)
[2016-08-03] MEDS: MORPHINE 2 MG/ML 1ML SYRINGE IV PRN (01:05)
[2016-08-03 02:00] VITALS: BP 102/66
[2016-08-03] MEDS: oxyCODONE 5MG TAB PO SCH ×5 (04:12→20:30)
[2016-08-03] MEDS: VANCOMYCIN ORAL SOL 250MG/5ML ORAL SYRINGE PO SCH ×3 (05:46→17:08)
[2016-08-03 06:00] VITALS: BP 99/70
[2016-08-03] MEDS: NS 1,000 ML IV SCH ×2 (06:12→17:08)
[2016-08-03 06:31] LABS: BASO % 0.5 % (0.0-1.0); EOS # 0.2 K/mm3 (0.0-0.50); EOS % 4.8 % (0.0-3.0); LARGE UNSTAINED CELL # 0.1 K/mm3 (0.0-0.4); LARGE UNSTAINED CELL % 1.5 % (0.0-4.0); LYMPH # 0.9 K/mm3 (1.5-4.5); LYMPH % 21.1 % (24.0-44.0); MEAN CORPUSCULAR HEMOGLOBIN 30.7 pg (27.0-33.0); MEAN CORPUSCULAR VOLUME 93.1 fl (80.0-96.0); MONO # 0.3 K/mm3 (0.0-0.8); MONO % 7.9 % (0.0-5.0); NEUTROPHILS # 2.4 K/mm3 (1.8-7.7); NEUTROPHILS % 64.2 % (36.0-66.0); PLATELET COUNT, AUTOMATED 165 k/mm3 (150-450); WHITE BLOOD COUNT 3.8 K/mm3 (4.0-10.0)
[2016-08-03] MEDS ORDERED: VANC1CAP7 PO (06:32)
[2016-08-03] MEDS ORDERED: MORP15TA2 PO (06:32)
[2016-08-03] MEDS: MORPHINE 30 MG TAB **MSIR PO PRN ×5 (06:38→21:14)
[2016-08-03 06:57] LABS: ALBUMIN 2.2 GM/DL (3.2-5.2); ALBUMIN/GLOBULIN RATIO 0.67 (1.00-1.93); ALKALINE PHOSPHATASE 97 U/L (45-117); ALT/SGPT 11 U/L (12-78); ANION GAP 9 MEQ/L (8-16); AST/SGOT 15 U/L (15-37); BILIRUBIN,TOTAL 0.2 MG/DL (0.2-1.0); BLOOD UREA NITROGEN 4 MG/DL (7-18); CALCIUM LEVEL 7.5 MG/DL (8.5-10.1); CARBON DIOXIDE LEVEL 25 MEQ/L (21-32); CHLORIDE LEVEL 110 MEQ/L (98-107); CREATININE FOR GFR 0.45 MG/DL (0.70-1.30); GLOMERULAR FILTRATION RATE > 60.0 (>56); GLUCOSE, FASTING 76 MG/DL (70-105); POTASSIUM SERUM 4.3 MEQ/L (3.5-5.1); SODIUM LEVEL 144 MEQ/L (136-145); TOTAL PROTEIN 5.5 GM/DL (6.4-8.2)
[2016-08-03] MEDS: OMEPRAZOLE 20 MG CAP PO SCH ×2 (08:46→20:29)
[2016-08-03] MEDS: MULTIVITAMINS CHILDREN'S CHEWABLE TABLET PO SCH (08:46)
[2016-08-03] MEDS: OYSTER SHELL CALCIUM 500 MG TAB PO SCH ×2 (08:46→20:30)
[2016-08-03] MEDS: VITAMIN D 1,000 INTERNATIONAL UNITS TABLET PO SCH (08:46)
[2016-08-03] MEDS: ENOXAPARIN 40 MG/0.4 ML SYRINGE (J1650) SC SCH (08:47)
[2016-08-03] MEDS: SUCRALFATE SUSP 1GM/10ML UD PO SCH ×4 (08:47→20:29)
[2016-08-03] MEDS: CYANOCOBALAMIN 500 MCG TAB PO SCH (08:47)
--- NOTE | 2016-08-03 12:03 | REP ---
REASON: Dyspnea. COMPARISON: 07/31/2016 The suggested opacity in the right lower lobe remains and is seen particularly in the posterior sulcus on the lateral view. The lung hernandez are otherwise clear and unchanged. The heart is not enlarged and the osseous structures are stable and intact. IMPRESSION: Persistent right lower lobe opacity, although subtle and particularly in the CP angle as described above. Signed by Wilfrido Camejo DO 08/03/2016 01:52 P
[2016-08-03 14:00] VITALS: BP 101/73
--- NOTE | 2016-08-03 17:28 | IPN ---
DATE: 08/02/2016 Overnight, the patient was found to have positive Clostridium (C) difficile toxin. Has been started on oral vancomycin. He states that he has had about two to three bowel movements yesterday, which were only documented as one on electronic medical record. The patient is able to tolerate his diet well. No nausea or vomiting. No fevers or chills overnight. Still with persistent abdominal pain rated at 8 out of 10 with baseline usually at 7 out of 10. Adequately controlled with oxycodone; however, when receives morphine systolic pressure drops down below 100 at night and has required IV fluid bolus. Temperature 96.6, pulse 62, respiratory rate 18, blood pressure 108/58, 96% on room air. GENERAL: Appears older than his staged age. Cachectic. LUNGS: Clear to auscultation with no wheezing, rales or rhonchi. HEART: S1, S2. Sinus rhythm. ABDOMEN: Soft, tender. Percutaneous endoscopic gastrostomy tube. No rebound, guarding. Positive bowel sounds. EXTREMITIES: No cyanosis, clubbing or pitting edema. LABORATORY DATA: White count 3.8, hemoglobin 10, hematocrit 31, platelet count 177. Sodium 141, potassium 3.9, chloride 111, bicarbonate 23, BUN 5, creatinine 0.5, glucose of 118. Microbiology: C difficile positive. ASSESSMENT AND PLAN: 51-year-old male with a history of chronic abdominal pain, gastric [place] [address] Delarosa with chronic esophageal stricture dilated every few months, PEG placement to repair a feeding tube due to mechanical issue, has been previously admitted two weeks ago for the same issues, chronic pain, unable to have followup appointment at the pain clinic in [place], [facility] with similar complaints, chronic abdominal pain now with nausea, vomiting, diarrhea, recently had a positive Clostridium (C) difficile on examination yesterday. IMPRESSION: 1. C difficile colitis. The patient is on oral vancomycin. Continue on IV fluid hydration. Supportive care. Contact isolation. 2. History of gastric bypass surgery with chronic abdominal pain. Currently on IV morphine as needed. 3. History of gastric bypass with chronic abdominal pain. The patient has an appointment with Dr. Delarosa next week for dilation of his history of esophageal stricture. His pain is chronically managed by his primary care physician, who prescribes him his oxycodone. The patient was comfortable with prior MS IR 15 mg daily three times a day prescribed by Dr. Garcia during previous hospital discharge. He is currently off the morphine PLAQUE MAKER pump. Pain management has been consulted and states that he should follow with the pain clinic in [place], which he has several calls but not returned phone call for followup appointment. Plans for discharge will most likely be on Thursday in order to obtain an appointment and to get his diarrhea under control. 4. History of esophageal strictures. The patient has an appointment with Dr. Delarosa in [place], his bariatric surgeon on 08/05/2016. No active signs of aspiration. Continue with tube feedings, enteral feeding, IV fluid. 5. History of reflux. On proton pump inhibitor, Carafate. 6. History of opiate abuse dependency. Defer to his outpatient primary care physician. 7. PEG tube with chronic malnutrition. Nutrition consult.
[2016-08-03] MEDS: MIRTAZAPINE 15 MG TAB PO SCH (20:29)
[2016-08-03 22:00] VITALS: BP 95/66
[2016-08-04] MEDS: VANCOMYCIN ORAL SOL 250MG/5ML ORAL SYRINGE PO SCH ×3 (00:25→12:08)
[2016-08-04] MEDS: oxyCODONE 5MG TAB PO SCH ×4 (00:26→12:06)
[2016-08-04] MEDS: NS 1,000 ML IV SCH (01:18)
[2016-08-04] MEDS: MORPHINE 30 MG TAB **MSIR PO PRN ×4 (01:19→13:43)
[2016-08-04 02:00] VITALS: BP 94/60
[2016-08-04 05:58] LABS: BASO % 0.4 % (0.0-1.0); EOS # 0.1 K/mm3 (0.0-0.50); EOS % 3.6 % (0.0-3.0); LARGE UNSTAINED CELL # 0.1 K/mm3 (0.0-0.4); LARGE UNSTAINED CELL % 2.1 % (0.0-4.0); LYMPH # 1.1 K/mm3 (1.5-4.5); LYMPH % 30.6 % (24.0-44.0); MEAN CORPUSCULAR HGB CONC 32.4 g/dl (32.0-36.5); MEAN CORPUSCULAR VOLUME 92.8 fl (80.0-96.0); MONO # 0.3 K/mm3 (0.0-0.8); MONO % 8.1 % (0.0-5.0); NEUTROPHILS % 55.2 % (36.0-66.0); PLATELET COUNT, AUTOMATED 147 k/mm3 (150-450); RED CELL DISTRIBUTION WIDTH 13.8 % (11.5-14.5); WHITE BLOOD COUNT 3.6 K/mm3 (4.0-10.0)
[2016-08-04 06:00] VITALS: BP 99/64
[2016-08-04 06:23] LABS: ALBUMIN 2.1 GM/DL (3.2-5.2); ALBUMIN/GLOBULIN RATIO 0.66 (1.00-1.93); ALKALINE PHOSPHATASE 89 U/L (45-117); ALT/SGPT 9 U/L (12-78); ANION GAP 5 MEQ/L (8-16); AST/SGOT 10 U/L (15-37); BILIRUBIN,TOTAL 0.2 MG/DL (0.2-1.0); BLOOD UREA NITROGEN 5 MG/DL (7-18); CALCIUM LEVEL 7.3 MG/DL (8.5-10.1); CARBON DIOXIDE LEVEL 29 MEQ/L (21-32); CHLORIDE LEVEL 109 MEQ/L (98-107); GLOMERULAR FILTRATION RATE > 60.0 (>56); GLUCOSE, FASTING 73 MG/DL (70-105); POTASSIUM SERUM 4.4 MEQ/L (3.5-5.1); SODIUM LEVEL 143 MEQ/L (136-145); TOTAL PROTEIN 5.3 GM/DL (6.4-8.2)
[2016-08-04] MEDS: ENOXAPARIN 40 MG/0.4 ML SYRINGE (J1650) SC SCH (08:45)
[2016-08-04] MEDS: OYSTER SHELL CALCIUM 500 MG TAB PO SCH (08:45)
[2016-08-04] MEDS: MULTIVITAMINS CHILDREN'S CHEWABLE TABLET PO SCH (08:45)
[2016-08-04] MEDS: SUCRALFATE SUSP 1GM/10ML UD PO SCH ×2 (08:45→12:06)
[2016-08-04] MEDS: CYANOCOBALAMIN 500 MCG TAB PO SCH (08:45)
[2016-08-04] MEDS: VITAMIN D 1,000 INTERNATIONAL UNITS TABLET PO SCH (08:45)
[2016-08-04] MEDS: OMEPRAZOLE 20 MG CAP PO SCH (08:45)
[2016-08-04 10:00] VITALS: BP 95/59
--- NOTE | 2016-08-04 10:50 | IPN ---
DATE: 08/03/2016 The patient is seen and examined at the bedside. The chart has been reviewed. Yesterday, the patient had episodes of low blood pressure in the 90s due to IV morphine. He had been given IV boluses in order for him to receive IV morphine for pain. He has chronic epigastric abdominal pain, he rates usually at 7-8 out of 10 on a pain scale, which is tolerable to him. The patient has been using IV morphine every 3 hours for severe breakthrough pain when the pain reaches 9 or 10 on a pain scale. The patient was recently diagnosed with Clostridium (C) difficile colitis and has had no bowel movement yesterday and one the day before. Vitals: Temperature 96.8, pulse 61, respiratory rate 18, blood pressure 99/70 and 99% on room air. Generally awake, alert, oriented times three. Anicteric sclerae. No jaundice. Dry mucous membranes. Appears older than his staged age and cachectic. Lungs are clear to auscultation. No wheezing, rales or rhonchi. Heart: S1, S2. Sinus rhythm. Abdomen is soft, tender diffusely. Feeding tube appears to be clean and dry. No rebound or guarding. Positive bowel sounds times four quadrants. Extremities: No pitting edema. LABORATORY DATA: White count 3.8, hemoglobin 9, hematocrit 30, platelet count 165. Sodium 144, potassium 4, chloride 110, bicarbonate 25, BUN 4, creatinine 0.45, glucose of 76. ASSESSMENT AND PLAN: This is a 51-year-old male with history of gastric bypass done by Dr. Delarosa in [place] in 2012 who has had chronic pain since, PEG placement for nutrition, repair of feeding tube this May due to mechanical issue, previously admitted two weeks ago for the same chronic issues and unable to have followup at the pain clinic in [place], who returns with similar complaints of chronic pain; however, now with nausea, vomiting and diarrhea, and was found to have Clostridium (C) difficile colitis. IMPRESSION: 1. Intractable chronic abdominal pain. The patient is currently on IV morphine as needed for severe breakthrough pain and his home dose of oxycodone of 20 mg every [address] Marrero is his primary care physician that usually manages his opioid narcotics. He has been seen by Cristina Feng here in the hospital from pain management; however, outpatient followup was to be done with another pain management in [place] that he is unable to obtain an appointment from, prompting him to come to the emergency room. The patient will be transitioned to oral morphine today for his severe breakthrough with MSIR 15 mg every 4 hours as needed for severe breakthrough pain. IV morphine will be discontinued with plans for discharge in the morning and outpatient followup with the pain clinic in [place]. 2. History of gastric bypass with chronic abdominal pain and history of esophageal stricture. He has an appointment with Dr. Delarosa on for dilation for esophageal stricture. His chronic pain is managed by Dr. Marrero and the pain clinic in [place]. The patient was comfortable with MSIR 15 mg every [address] Pro Garcia during the previous hospital discharge. Will discontinue IV morphine as needed for now and transition to MSIR as needed for breakthrough pain. Plans for discharge will be for Thursday with outpatient followup with pain management clinic, Dr. Marrero and Dr. Delarosa. 3. History of esophageal stricture. Patient is to have dilation with Dr. Delarosa on in [place] at [facility] next week. He has no additional complaints aside from chronic dysphagia. No signs of active aspiration currently on tube feedigs. 4. History of reflux. On proton pump inhibitor and Carafate. 5. History of opiate abuse and dependency. Strict opioid prescriptions given by Dr. Marrero, no more than seven days worth of acute opioids for acute pain. 6. PEG tube with chronic malnutrition. Resume home tube feedings. 7. Disposition. May discharge in the morning if clinically stable. 8. C. Difficile colitis. Currently on oral vancomycin. Appears to be well controlled. Complete a 7 day course.
[2016-08-04] MEDS ORDERED: MORP15TA2 PO (12:30)
[2016-08-04] MEDS ORDERED: FLAG500T PO (12:32)
[2016-08-04] MEDS ORDERED: MOXIFLOXACIN 400 MG TAB PO ONE (13:00)
[2016-08-04] MEDS ORDERED: BACITAB3 PO (13:02)
[2016-08-04] MEDS ORDERED: AVEL1TAB PO (13:02)
--- NOTE | 2016-08-05 10:16 | DSES ---
DATE OF ADMISSION: 07/31/2016 DATE OF DISCHARGE: 08/04/2016 PRIMARY CARE PHYSICIAN: Dr. Cedric Marrero PRIMARY DISCHARGE DIAGNOSES: 1. Clostridium (C) difficile colitis. 2. Chronic abdominal pain secondary to gastric bypass surgery. 3. History of esophageal stricture requiring scheduled dilation with Dr. Delarosa in [place]. 4. Pancytopenia. 5. Electrolytes abnormalities with low potassium due to diarrhea. 6. Morphine induced hypotension. 7. Right lower lobe pneumonia. DISCHARGE MEDICATIONS: - Flagyl 500 mg by mouth every 8 hours - morphine sulfate IR 15 mg by mouth every 4 as needed for pain 8-10 scale, 42 tablets, maximum daily dose of six - vitamin D 2000 units daily - vitamin B12 500 mcg daily - mirtazapine 45 mg nightly - multivitamin one tablet daily - omeprazole 40 mg twice a day - oxycodone 20 mg every 4 hours scheduled as previous home dose - Os-Madan 500 twice a day - Senokot one tablet twice a day - Carafate 10 by mouth four times a day - Tab-A-Christian one tablet by mouth twice a day tube feedings as previously scheduled HOSPITAL COURSE: This is a 51-year-old male with a history of gastric bypass surgery in 2102, follows with Dr. Delarosa in [place], with history of esophageal stricture with scheduled dilation, presents to the emergency room with history of nausea, vomiting, diarrhea and intractable abdominal pain. Patient was given intravenous fluids, morphine patient controlled analgesia (MERCHANDISE FOR RESALE PURCHASING AGENT) pump. Pain management was consulted. Patient was continued on his home dose of oxycodone 2.0 mg every 4 hours scheduled. Gastrointestinal (GI) panel grew out C diff colitis. Patient was placed on vancomycin. He was afebrile with pancytopenia and no acute indication for red blood cell transfusion. No signs of active bleeding. Patient had episodes of low potassium during his diarrhea episodes, which was repleted. His pain was well controlled. No other signs of infection was noted. Urine culture was negative. Chest x-ray was unremarkable. CT abdomen and pelvis showed nonobstructive, 8 mm, intrarenal calculus, small amount of ascites. He had no respiratory complaints, cough, shortness of breath, fever or chills at home. Patient was treated with vancomycin with result in improvement in the diarrhea. Patient complained of occasional dysphagia but was due to see Dr. Delarosa for esophageal dilation. Patient had repeat chest x-ray. It showed persistent right lower lobe infiltrate. Patient was given Avelox to continue a full 7-day course as outpatient, as well as Bacid one tablet by mouth twice a day with meals. LABORATORY DATA ON DISCHARGE: White count 3.6, hemoglobin 9.3, hematocrit 28.8, platelet count of 147. Sodium 143, potassium 4.4, chloride 109, bicarbonate 29, BUN 5, creatinine 0.5, glucose of 73. C diff positive 08/01/2016. 07/31/2016 urine culture negative. Chest x-ray: Persistent right lower lobe opacities, subtle, particularly in the costophrenic angle. CT abdomen and pelvis: Lungs bases are clear. Mild linear fibrosis on the right middle lobe. Small ascites. Gastrotomy tube is seen in place in the right upper quadrant. No acute intraabdominal pathology. No evidence of obstructive lesion or hernia. TIME SPENT ON DISCHARGE: 30 minutes. [facility]
== END 2016-08-04 13:47 | disposition home or self-care (01) | DRG 371 ==
LOC: EDBD 04:25 → M ED 05:15 → M ED INP 08:35 → M MSPAV 10:53
PROVIDERS: ADMIT General Practice; ATTEND General Practice
DX: A04.7 Enterocolitis due to Clostridium difficile (principal); J18.9 Pneumonia, unspecified organism; E46 Unspecified protein-calorie malnutrition; D61.818 Other pancytopenia; F11.20 Opioid dependence, uncomplicated; K22.2 Esophageal obstruction; F17.210 Nicotine dependence, cigarettes, uncomplicated; I95.2 Hypotension due to drugs; K21.9 Gastro-esophageal reflux disease without esophagitis; M96.1 Postlaminectomy syndrome, not elsewhere classified; M54.9 Dorsalgia, unspecified; E87.8 Other disorders of electrolyte and fluid balance, not elsewhere classified; G89.28 Other chronic postprocedural pain; Z93.1 Gastrostomy status; Z79.899 Other long term (current) drug therapy; Z90.49 Acquired absence of other specified parts of digestive tract; Z83.3 Family history of diabetes mellitus; Z80.3 Family history of malignant neoplasm of breast

== ENCOUNTER 2016-08-29 14:58 | Inpatient (IN) | payer OTHER, MEDICARE ==
[~2016-08-29] VITALS: Ht 180.3 cm; Wt 64.3 kg
[~2016-08-29 14:58] MED LIST changes: +AVEL1TAB3 PO; +BACITAB PO; -CALC600T21 PO; +CALC600T60 PO; +FLAG500T PO; +MORP15TA2 PO; -MS C15TA2 PO; +MS C15TA8 PO; +ONDA4TAB6 PO; +OXYC-405 PO; -OXYC1TAB57 PO; -OXYC40TA12 PO; +OXYC40TA29 PO; +SENN1TAB10 PO; -SENN8.6T10 PO; +VANC1CAP7 PO
[2016-08-29 16:43] LABS: BASO % 0.1 % (0.0-1.0); EOS % 1.2 % (0.0-3.0); LARGE UNSTAINED CELL # 0.1 K/mm3 (0.0-0.4); LARGE UNSTAINED CELL % 1.6 % (0.0-4.0); LYMPH # 0.9 K/mm3 (1.5-4.5); LYMPH % 17.3 % (24.0-44.0); MEAN CORPUSCULAR HEMOGLOBIN 29.1 pg (27.0-33.0); MEAN CORPUSCULAR HGB CONC 31.9 g/dl (32.0-36.5); MEAN CORPUSCULAR VOLUME 91.1 fl (80.0-96.0); MONO # 0.2 K/mm3 (0.0-0.8); MONO % 4.5 % (0.0-5.0); NEUTROPHILS # 3.5 K/mm3 (1.8-7.7); NEUTROPHILS % 75.3 % (36.0-66.0); PLATELET COUNT, AUTOMATED 143 k/mm3 (150-450); RED CELL DISTRIBUTION WIDTH 14.3 % (11.5-14.5); WHITE BLOOD COUNT 4.6 K/mm3 (4.0-10.0)
[2016-08-29] MEDS ORDERED: NS 1,000 ML IV ONE (16:45)
[2016-08-29] MEDS ORDERED: HYDROmorphone HCL 1 MG/ML SYRINGE (J1170) IV ONE ×2 (16:45→19:30)
[2016-08-29 16:56] LABS: ALBUMIN 2.7 GM/DL (3.2-5.2); ALBUMIN/GLOBULIN RATIO 0.64 (1.00-1.93); ALKALINE PHOSPHATASE 127 U/L (45-117); ALT/SGPT 14 U/L (12-78); AMYLASE 26 U/L (25-115); ANION GAP 5 MEQ/L (8-16); AST/SGOT 17 U/L (15-37); BILIRUBIN,DIRECT 0.2 MG/DL (0.0-0.2); BILIRUBIN,TOTAL 0.3 MG/DL (0.2-1.0); BLOOD UREA NITROGEN 12 MG/DL (7-18); CALCIUM LEVEL 8.1 MG/DL (8.5-10.1); CARBON DIOXIDE LEVEL 28 MEQ/L (21-32); CHLORIDE LEVEL 106 MEQ/L (98-107); CREATININE FOR GFR 0.66 MG/DL (0.70-1.30); GLOMERULAR FILTRATION RATE > 60.0 (>56); GLUCOSE, FASTING 117 MG/DL (70-105); POTASSIUM SERUM 3.9 MEQ/L (3.5-5.1); SODIUM LEVEL 139 MEQ/L (136-145); TOTAL PROTEIN 6.9 GM/DL (6.4-8.2)
[2016-08-29] MEDS ORDERED: BACITAB PO (19:38)
--- NOTE | 2016-08-29 21:03 | REP ---
CT ABDOMEN AND PELVIS WITHOUT CONTRAST: 08/29/2016. Clinical history: Renal colic. The patient states generalized abdominal pain. Noncontrast images were performed. Coronal and sagittal reconstructions are provided. CT abdomen: Lung bases were clear. Heart is not enlarged. There is no pericardial thickening or effusion. Again noted to be surgical clips from prior gastric surgery and there is a gastrostomy tube into the right upper quadrant; may be distal antrum or duodenum. This is unchanged. The liver and spleen are not enlarged and show no focal lesion. There are surgical clips from prior cholecystectomy. Gas throughout the transverse colon which is mildly distended with stool and gas in the right colon and left. Small bowel loops are not abnormally dilated. There is no perforation or free air in the abdomen or pelvis. Pancreas shows no mass, but appears somewhat atrophic. Adrenal glands are normal. There is a stone in the lower pole of the right kidney measuring about 8 mm and unchanged from the previous study. There is no hydronephrosis or hydroureter on either side. No ureteral stone identified. Degenerative changes in the spine and there is fusion of the lower lumbar spine with pedicle screws and arch bars at L5 and S1. This is unchanged. Atherosclerotic calcification of the aorta without aneurysm. No adenopathy. No acute compression deformity of the lumbar spine. Visualized ribs also intact. CT pelvis. The bony hips, pelvis, SI joints and lumbosacral junction are unchanged without acute fracture. There are degenerative changes of the right greater than left SI joint and at the acetabular roof of the left greater than right hip. Small bowel loops were intact. Bladder unremarkable and without stone or mass. Prostate indents the bladder base. A few pelvic phleboliths are seen. Small bowel loops without dilatation. No sign of obstruction, mass, ascites or free air in the pelvis. There is no ventral or inguinal hernia. Impression: 1. An 8 mm stone lower pole right kidney, unchanged from previous CT on 07/15/2016. No hydronephrosis or hydroureter. 2. Gastrostomy tube in the upper abdomen curving into the right upper quadrant, unchanged with prior gastric surgeries, staple lines in the left upper quadrant. 3. Bowel loops without signs of obstruction or mass. No free air or signs of perforation. Solid organs upper abdomen otherwise unremarkable. 4. Prior lumbar fusion at L5-S1, unchanged. Nothing acute in the pelvis. Signed by Garland Ramírez MD 08/30/2016 08:02 P
[2016-08-29 21:40] VITALS: BP 116/81
[2016-08-29] MEDS ORDERED: MORPHINE 4 MG/ML 1ML SYRINGE IV PRN (21:45)
[2016-08-29] MEDS: METOCLOPRAMIDE INJ 10MG/2ML VIAL (J2765) IV SCH (22:37)
[2016-08-29] MEDS: SUCRALFATE SUSP 1GM/10ML UD PO SCH (22:37)
[2016-08-29] MEDS: MIRTAZAPINE 15 MG TAB PO SCH (22:37)
[2016-08-29] MEDS: OMEPRAZOLE 20 MG CAP PO SCH (22:38)
[2016-08-29] MEDS: oxyCODONE 5MG TAB PO SCH (22:38)
[2016-08-29] MEDS: OYSTER SHELL CALCIUM 500 MG TAB PO SCH (22:38)
[2016-08-29] MEDS: LACTOBACILLUS ACIDOPHILUS CAP (BACID) PO SCH (22:39)
[2016-08-29] MEDS: D5W/0.9% SODIUM CHLORIDE 1,000 ML IV SCH (22:42)
--- NOTE | 2016-08-29 23:20 | HPE ---
DATE OF ADMISSION: 08/29/2016 PRIMARY CARE PROVIDER: Dr. Cedric Marrero CHIEF COMPLAINT: Increased abdominal pain and diarrhea over the past 3 or 4 days. PAST MEDICAL HISTORY: Clostridium difficile colitis in July 2016. Chronic abdominal pain and diarrhea secondary to gastric bypass surgery in 2012. History of esophageal stricture requiring scheduled dilation by Dr. Delarosa in [place]. Chronic narcotic dependence. History of kidney stones. Gastric tube in position. Severe protein-calorie malnutrition and cachexia. Major depressive disorder in remission. Avoidant/restrictive food intake disorder. HISTORY OF THE PRESENT ILLNESS: This is a 51-year-old male with chronic abdominal pain and recurrent episodes of diarrhea going on for the past 3-4 years, which started about a few months after his gastric bypass surgery for morbid obesity in 2012 and back surgery a few months later. The patient has intermittent episodes of severe abdominal pain and worsening diarrhea when he is unable to tolerate any oral feed, becomes dehydrated and with electrolyte imbalance and requiring recurrent hospital admissions. The patient's last admission was in July 2016 when he was diagnosed with Clostridium difficile colitis. As per patient, he finished the treatment for Clostridium difficile colitis. He was well for a couple of weeks; however, over the past week, he again started having increased diarrhea several times a day, watery, increased abdominal pain, unable to tolerate any oral food, so came into the emergency room today. In the emergency department (ED), the patient was very weak, did have some clinical features of dehydration, although his electrolytes were normal, the patient is being admitted to the hospitalist service for diarrhea and dehydration. PAST SURGICAL HISTORY: Deysi-en-Y gastrojejunostomy for morbid obesity in may 2012 Appendectomy. Back surgery in Jul 2013. Cholecystectomy. Right hand surgery. Right arm tendon repair. PEG tube placement new in may 2016. SOCIAL HISTORY: The patient is a smoker, about a half a pack per day, previously used to smoke marijuana. Denies any history of alcohol abuse or recreational drugs. He lives with his and son in an apartment in [place]. FAMILY HISTORY: Nothing significant. ALLERGIES: No known allergies. REVIEW OF SYSTEMS: The patient denies any fevers or chills. Denies any chest pain. Denies any nausea or vomiting. Does have severe abdominal pain. Does have episodes of diarrhea, watery, several times a day. PHYSICAL EXAMINATION: VITAL SIGNS: Temperature 97.6, pulse 52, respiratory rate 16, blood pressure 114/79, pulse oximetry 100% in room air. GENERAL: Patient awake, alert, oriented times three, lying down in bed in no acute distress. HEENT: Normocephalic, atraumatic. Moist mucous membranes. Anicteric eyes. CHEST: Clear to auscultation. CARDIOVASCULAR: S1, S2, regular. ABDOMEN: Soft, mildly tender, diffusely. Bowel sounds hyperperistaltic. EXTREMITIES: No edema. LABORATORY DATA: WBC 4.6, hemoglobin 12.2, platelets 143. Sodium 139, potassium 3.9, chloride 106, bicarbonate 28, BUN 12, creatinine 0.6, glucose 117, calcium 8.1. Liver function tests are normal. Amylase, lipase normal. GI panel is in progress. Abdomen and pelvis CT shows an 8 mm stone in the lower pole of the right kidney, unchanged. No hydronephrosis or hydroureter. Gastrostomy tube in the upper abdomen, unchanged. There is no sign of obstruction or mass. No free air or perforation. There is prior lumbar fusion of L5-S1, unchanged. ASSESSMENT: This is a 51-year-old male admitted for diarrhea and dehydration. PLAN: 1. Diarrhea. Will check Clostridium difficile. Patient had recent infection with Clostridium difficile in July 2016. The patient did complete the treatment. 2. Mild dehydration. The patient got some IV fluids in the emergency department. Will hold further IV fluid at present. Will allow oral diet and gastrostomy tube feedings. 3. Acute on chronic abdominal pain. Will continue with home dose of oxycodone 20 mg every 4 hours, and we can give morphine IV for as needed break-through pain. 4. Esophageal stricture. The patient has intermittent scheduled dilation with Dr. Delarosa in [place]. 5. Chronic back pain. Has a history of lumbar fusion done in 2013. Will continue with pain medications. 6. Severe protein-calorie malnutrition as a complication of gastric bypass surgery but is stable at this point. 7. History of major depression, now in remission. Will continue with home medications. 8. History of peptic ulcer disease. Will continue with sucralfate and omeprazole. 9. Deep vein thrombosis (DVT) prophylaxis has been ordered. 10. Gastrointestinal (GI) prophylaxis has been ordered. [facility]
[2016-08-30] MEDS: oxyCODONE 5MG TAB PO SCH ×6 (02:09→20:53)
[2016-08-30 06:00] VITALS: BP 90/54
[2016-08-30] MEDS ORDERED: VANCOMYCIN ORAL SOL 250MG/5ML ORAL SYRINGE PO SCH (06:00)
[2016-08-30 06:02] LABS: BASO % 0.3 % (0.0-1.0); EOS # 0.1 K/mm3 (0.0-0.50); EOS % 2.1 % (0.0-3.0); LARGE UNSTAINED CELL # 0.1 K/mm3 (0.0-0.4); LARGE UNSTAINED CELL % 1.9 % (0.0-4.0); LYMPH # 1.1 K/mm3 (1.5-4.5); LYMPH % 24.9 % (24.0-44.0); MEAN CORPUSCULAR HEMOGLOBIN 29.5 pg (27.0-33.0); MEAN CORPUSCULAR HGB CONC 32.1 g/dl (32.0-36.5); MEAN CORPUSCULAR VOLUME 91.8 fl (80.0-96.0); MONO # 0.3 K/mm3 (0.0-0.8); MONO % 6.5 % (0.0-5.0); NEUTROPHILS # 2.7 K/mm3 (1.8-7.7); NEUTROPHILS % 64.3 % (36.0-66.0); PLATELET COUNT, AUTOMATED 138 k/mm3 (150-450); RED CELL DISTRIBUTION WIDTH 14.3 % (11.5-14.5); WHITE BLOOD COUNT 4.2 K/mm3 (4.0-10.0)
[2016-08-30 06:13] LABS: ANION GAP 4 MEQ/L (8-16); BLOOD UREA NITROGEN 9 MG/DL (7-18); CALCIUM LEVEL 7.7 MG/DL (8.5-10.1); CARBON DIOXIDE LEVEL 27 MEQ/L (21-32); CHLORIDE LEVEL 110 MEQ/L (98-107); CREATININE FOR GFR 0.47 MG/DL (0.70-1.30); GLOMERULAR FILTRATION RATE > 60.0 (>56); GLUCOSE, FASTING 122 MG/DL (70-105); MAGNESIUM LEVEL 2.1 MG/DL (1.8-2.4); POTASSIUM SERUM 3.9 MEQ/L (3.5-5.1); SODIUM LEVEL 141 MEQ/L (136-145)
[2016-08-30 07:55] VITALS: BP 82/50
[2016-08-30] MEDS: SUCRALFATE SUSP 1GM/10ML UD PO SCH ×4 (08:32→20:51)
[2016-08-30] MEDS: VITAMIN D 1,000 INTERNATIONAL UNITS TABLET PO SCH (08:32)
[2016-08-30] MEDS: OMEPRAZOLE 20 MG CAP PO SCH ×2 (08:33→20:51)
[2016-08-30] MEDS: METOCLOPRAMIDE INJ 10MG/2ML VIAL (J2765) IV SCH ×3 (08:33→20:51)
[2016-08-30] MEDS: LACTOBACILLUS ACIDOPHILUS CAP (BACID) PO SCH ×2 (08:33→20:51)
[2016-08-30] MEDS: ENOXAPARIN 40 MG/0.4 ML SYRINGE (J1650) SC SCH (08:33)
[2016-08-30] MEDS: CYANOCOBALAMIN 500 MCG TAB PO SCH (08:33)
[2016-08-30] MEDS: MULTIVITAMINS CHILDREN'S CHEWABLE TABLET PO SCH (08:33)
[2016-08-30] MEDS: OYSTER SHELL CALCIUM 500 MG TAB PO SCH ×2 (08:33→20:50)
[2016-08-30 10:20] VITALS: BP 90/56
[2016-08-30] MEDS: D5W/0.9% SODIUM CHLORIDE 1,000 ML IV SCH ×2 (10:23→20:51)
[2016-08-30] MEDS: FIDAXOMICIN 200 MG TAB (DIFICID) PO SCH ×2 (10:32→21:02)
--- NOTE | 2016-08-30 11:47 | IPNPDOC ---
Date Seen The patient was seen on 08/30/16. Progress Note SUBJECTIVE: Patient complains of Abdominal pain and several loose watery BM's overnight. denies n/v OBJECTIVE PHYSICAL EXAMINATION: VITAL SIGNS: Please see below. GENERAL: frail cachetic man sitting in bed nad HEENT: Bi temporal wasting,, PERRL, dry mucous membranes CARDIOVASCULAR: S1S2 regular. RESPIRATORY: CTA b/l. ABDOMINAL: BS+, soft, G tube in place, TF's running, old surgical scars EXTREMITIES: wasted, no c/c/e LABORATORY DATA: Please see below. MICROBIOLOGY: Please see below. IMAGIN. An 8 mm stone lower pole right kidney, unchanged from previous CT on 07/15/2016. No hydronephrosis or hydroureter. 2. Gastrostomy tube in the upper abdomen curving into the right upper quadrant, unchanged with prior gastric surgeries, staple lines in the left upper quadrant. 3. Bowel loops without signs of obstruction or mass. No free air or signs of perforation. Solid organs upper abdomen otherwise unremarkable. DVT prophylaxis ordered?: Lovenox ASSESSMENT AND PLAN: This is a 51-year-old man with recurrent C. difficile colitis and acute on chronic abdominal pain. PROBLEMS: 1. C. difficile colitis and acute on chronic abdominal pain: The patient was positive for C. difficile colitis during his previous hospital stay 08/10 through August 04. He tells me that he complete his course of treatment and that is loose stools did improve however the last 3-4 days and progressively worsened to the point where he felt as though it had come back once again of note the patient was treated with Avelox for pneumonia during that treatment course. The patient tells me that he had 3 other bouts of C. difficile colitis at [facility] he tells me that this is his fourth bout total in the last year or so. For the time being I'll start him on fidaxomicin by mouth twice a day and bacid. He did receive IV fluids if he feels improved in the next 48 hours would consider infectious disease consultation. I will attempt to obtain discharge summary is from [facility] to better delineate the timeline of his C. difficile infection. In regard to his acute on chronic abdominal pain he is opiate dependent he did become hypotensive following Dilaudid-HP high doses of IV morphine yesterday evening at this time I'll decrease him to 2 mg IV every 8 hours when necessary. I'll continue recommendations from. Reassess pain consultations morphine sulfate 50 mg every 6 hours when necessary severe pain and Roxicodone 20 mg every 4 hours when necessary. At this time he does appear comfortable. The patient has chronic pain related to a gastric bypass surgery as well as a post laminectomy syndrome. 2. Status post gastric bypass: Agent is on B12 vitamin D multivitamin and calcium supplementations. He is also on omeprazole and Carafate 3. Chronic pain: And above. 4. Major depressive disorder and avoid restrictive intake disorder: Continue with Remeron 5. Nephrolithiasis: Stable continue to monitor DISPOSITION: We'll continue to monitor the patient closely while he is started on appropriate antibiotics today. VS, I&O, 24H, Jacobbone Vital Signs/I&O Vital Signs Date Time Temp Pulse Resp B/P Pulse Ox O2 Delivery O2 Flow Rate FiO2 08/30/16 10:32 18 Room Air 08/30/16 10:20 90/56 08/30/16 06:00 98.5 60 98 08/29/16 17:00 0 I&O- Last 24 Hours up to 6 AM 08/30/16 05:59 Intake Total 194 ml Output Total 750 ml Balance -556 ml Laboratory Data 24H LABS Laboratory Tests 2 08/29/16 15:31: Aspartate Amino Transf (AST/SGOT) 17, Alanine Aminotransferase (ALT/SGPT) 14, Alkaline Phosphatase 127H, Total Bilirubin 0.3, Direct Bilirubin 0.2, Albumin 2.7L, Albumin/Globulin Ratio 0.64L, Amylase Level 26, Anion Gap 5L, White Blood Count 4.6, Red Blood Count 4.18L, Hemoglobin 12.2L, Hematocrit 38.1L, Mean Corpuscular Volume 91.1, Mean Corpuscular Hemoglobin 29.1, Mean Corpuscular Hemoglobin Concent 31.9L, Red Cell Distribution Width 14.3, Platelet Count 143L , Neutrophils (%) (Auto) 75.3H, Lymphocytes (%) (Auto) 17.3L, Monocytes (%) ( Auto) 4.5, Eosinophils (%) (Auto) 1.2, Basophils (%) (Auto) 0.1, Neutrophils # ( Auto) 3.5, Lymphocytes # (Auto) 0.9L, Monocytes # (Auto) 0.2, Eosinophils # ( Auto) 0.0, Basophils # (Auto) 0.0, Calcium Level 8.1L, Glomerular Filtration Rate > 60.0, Large Unclassified Cells # 0.1, Large Unclassified Cells % 1.6, Lipase 101, Total Protein 6.9 08/30/16 05:34: Anion Gap 4L, White Blood Count 4.2, Red Blood Count 3.54L, Hemoglobin 10.4L, Hematocrit 32.5L, Mean Corpuscular Volume 91.8, Mean Corpuscular Hemoglobin 29.5 , Mean Corpuscular Hemoglobin Concent 32.1, Red Cell Distribution Width 14.3, Platelet Count 138L, Neutrophils (%) (Auto) 64.3, Lymphocytes (%) (Auto) 24.9, Monocytes (%) (Auto) 6.5H, Eosinophils (%) (Auto) 2.1, Basophils (%) (Auto) 0.3 , Neutrophils # (Auto) 2.7, Lymphocytes # (Auto) 1.1L, Monocytes # (Auto) 0.3, Eosinophils # (Auto) 0.1, Basophils # (Auto) 0.0, Calcium Level 7.7L, Glomerular Filtration Rate > 60.0, Large Unclassified Cells # 0.1, Large Unclassified Cells % 1.9, Blood Urea Nitrogen 9, Creatinine 0.47L, Sodium Level 141, Potassium Level 3.9, Chloride Level 110H, Carbon Dioxide Level 27, Magnesium Level 2.1 CBC/BMP Laboratory Tests 08/29/16 15:31 Red Blood Count 4.18 L, Mean Corpuscular Volume 91.1, Mean Corpuscular Hemoglobin 29.1, Mean Corpuscular Hemoglobin Concent 31.9 L, Red Cell Distribution Width 14.3, Neutrophils (%) (Auto) 75.3 H, Lymphocytes (%) (Auto) 17.3 L, Monocytes (%) (Auto) 4.5, Eosinophils (%) (Auto) 1.2, Basophils (%) ( Auto) 0.1, Neutrophils # (Auto) 3.5, Lymphocytes # (Auto) 0.9 L, Monocytes # ( Auto) 0.2, Eosinophils # (Auto) 0.0, Basophils # (Auto) 0.0 08/30/16 05:34 Red Blood Count 3.54 L, Mean Corpuscular Volume 91.8, Mean Corpuscular Hemoglobin 29.5, Mean Corpuscular Hemoglobin Concent 32.1, Red Cell Distribution Width 14.3, Neutrophils (%) (Auto) 64.3, Lymphocytes (%) (Auto) 24.9, Monocytes (%) (Auto) 6.5 H, Eosinophils (%) (Auto) 2.1, Basophils (%) ( Auto) 0.3, Neutrophils # (Auto) 2.7, Lymphocytes # (Auto) 1.1 L, Monocytes # ( Auto) 0.3, Eosinophils # (Auto) 0.1, Basophils # (Auto) 0.0, Calcium Level 7.7 L Microbiology Microbiology 08/30/16 Clostridium difficile (PCR) - Final, Complete MARIAM GOMEZ MD Aug 30, 2016 11:47
[2016-08-30] MEDS: MORPHINE 2 MG/ML 1ML SYRINGE IV PRN (13:14)
[2016-08-30 14:00] VITALS: BP 92/62
[2016-08-30] MEDS: MORPHINE 30 MG TAB **MSIR PO PRN ×2 (16:22→23:32)
[2016-08-30] MEDS: MIRTAZAPINE 15 MG TAB PO SCH (20:51)
[2016-08-30 22:00] VITALS: BP 98/72
[2016-08-31] MEDS: oxyCODONE 5MG TAB PO SCH ×6 (01:19→21:13)
[2016-08-31 05:54] LABS: BASO % 0.4 % (0.0-1.0); EOS # 0.1 K/mm3 (0.0-0.50); EOS % 2.7 % (0.0-3.0); LARGE UNSTAINED CELL # 0.1 K/mm3 (0.0-0.4); LARGE UNSTAINED CELL % 1.7 % (0.0-4.0); LYMPH # 0.9 K/mm3 (1.5-4.5); LYMPH % 24.1 % (24.0-44.0); MEAN CORPUSCULAR HEMOGLOBIN 29.5 pg (27.0-33.0); MEAN CORPUSCULAR HGB CONC 31.7 g/dl (32.0-36.5); MONO # 0.3 K/mm3 (0.0-0.8); MONO % 7.5 % (0.0-5.0); NEUTROPHILS # 2.2 K/mm3 (1.8-7.7); NEUTROPHILS % 63.7 % (36.0-66.0); PLATELET COUNT, AUTOMATED 117 k/mm3 (150-450); RED CELL DISTRIBUTION WIDTH 14.5 % (11.5-14.5); WHITE BLOOD COUNT 3.4 K/mm3 (4.0-10.0)
[2016-08-31 06:00] VITALS: BP 96/56
[2016-08-31 06:04] LABS: ANION GAP 4 MEQ/L (8-16); BLOOD UREA NITROGEN 8 MG/DL (7-18); CALCIUM LEVEL 7.5 MG/DL (8.5-10.1); CARBON DIOXIDE LEVEL 29 MEQ/L (21-32); CHLORIDE LEVEL 109 MEQ/L (98-107); CREATININE FOR GFR 0.44 MG/DL (0.70-1.30); GLOMERULAR FILTRATION RATE > 60.0 (>56); GLUCOSE, FASTING 94 MG/DL (70-105); MAGNESIUM LEVEL 1.8 MG/DL (1.8-2.4); POTASSIUM SERUM 3.9 MEQ/L (3.5-5.1); SODIUM LEVEL 142 MEQ/L (136-145)
[2016-08-31] MEDS: FIDAXOMICIN 200 MG TAB (DIFICID) PO SCH ×2 (08:36→21:11)
[2016-08-31] MEDS: OYSTER SHELL CALCIUM 500 MG TAB PO SCH ×2 (08:37→21:12)
[2016-08-31] MEDS: CYANOCOBALAMIN 500 MCG TAB PO SCH (08:37)
[2016-08-31] MEDS: OMEPRAZOLE 20 MG CAP PO SCH ×2 (08:37→21:12)
[2016-08-31] MEDS: LACTOBACILLUS ACIDOPHILUS CAP (BACID) PO SCH ×2 (08:37→21:12)
[2016-08-31] MEDS: VITAMIN D 1,000 INTERNATIONAL UNITS TABLET PO SCH (08:37)
[2016-08-31] MEDS: MULTIVITAMINS CHILDREN'S CHEWABLE TABLET PO SCH (08:37)
[2016-08-31] MEDS: SUCRALFATE SUSP 1GM/10ML UD PO SCH ×4 (08:38→21:12)
[2016-08-31] MEDS: METOCLOPRAMIDE INJ 10MG/2ML VIAL (J2765) IV SCH ×3 (08:38→21:12)
[2016-08-31] MEDS: ENOXAPARIN 40 MG/0.4 ML SYRINGE (J1650) SC SCH (08:38)
[2016-08-31] MEDS: D5W/0.9% SODIUM CHLORIDE 1,000 ML IV SCH ×2 (08:40→21:13)
[2016-08-31] MEDS: MORPHINE 30 MG TAB **MSIR PO PRN ×2 (11:08→17:22)
--- NOTE | 2016-08-31 11:34 | IPNPDOC ---
Date Seen The patient was seen on 08/31/16. Progress Note SUBJECTIVE: Patient complains of continued abdominal pain and continued loose watery BM's overnight, as per nursing staff though he has not had significant diarrhea. denies n/v OBJECTIVE PHYSICAL EXAMINATION: VITAL SIGNS: Please see below. GENERAL: frail cachetic man sitting in bed nad HEENT: Bi temporal wasting, PERRL, dry mucous membranes CARDIOVASCULAR: S1S2 regular. RESPIRATORY: CTA b/l. ABDOMINAL: BS+, soft, G tube in place, TF's running, old surgical scars, diffusely TTP EXTREMITIES: wasted, no c/c/e LABORATORY DATA: Please see below. MICROBIOLOGY: Please see below. IMAGIN. An 8 mm stone lower pole right kidney, unchanged from previous CT on 07/15/2016. No hydronephrosis or hydroureter. 2. Gastrostomy tube in the upper abdomen curving into the right upper quadrant, unchanged with prior gastric surgeries, staple lines in the left upper quadrant. 3. Bowel loops without signs of obstruction or mass. No free air or signs of perforation. Solid organs upper abdomen otherwise unremarkable. DVT prophylaxis ordered?: Lovenox ASSESSMENT AND PLAN: This is a 51-year-old man with recurrent C. difficile colitis and acute on chronic abdominal pain. PROBLEMS: 1. C. difficile colitis and acute on chronic abdominal pain: The patient was positive for C. difficile colitis during his previous hospital stay 08/10 through August 04. He tells me that he completed his course of treatment and that is loose stools did improve however the last 3-4 days and progressively worsened to the point where he felt as though it had come back once again of note the patient was treated with Avelox for pneumonia during that treatment course. He has noticed only marginal improvement in the first 24 hours of treatment, will continue to monitor closely, and attempt to obtain recs from [facility]. Patient states this is his 4th bout of c diff. Continue with previous pain management recs for acute on chronic abd and back pain. 2. Status post gastric bypass: Agent is on B12 vitamin D multivitamin and calcium supplementations. He is also on omeprazole and Carafate 3. Chronic pain: And above. 4. Major depressive disorder and avoid restrictive intake disorder: Continue with Remeron 5. Nephrolithiasis: Stable continue to monitor DISPOSITION: We'll continue to monitor the patient closely while he is started on appropriate antibiotics today. VS, I&O, 24H, Jacobbone Vital Signs/I&O Vital Signs Date Time Temp Pulse Resp B/P Pulse Ox O2 Delivery O2 Flow Rate FiO2 08/31/16 11:08 18 Room Air 08/31/16 06:00 97.4 69 96/56 100 08/29/16 17:00 0 I&O- Last 24 Hours up to 6 AM 08/31/16 06:00 Intake Total 4460 ml Output Total 0 ml Balance 4460 ml Laboratory Data 24H LABS Laboratory Tests 2 08/31/16 05:17: Anion Gap 4L, White Blood Count 3.4L, Red Blood Count 3.30L, Hemoglobin 9.8L, Hematocrit 30.7L, Mean Corpuscular Volume 93.0, Mean Corpuscular Hemoglobin 29.5 , Mean Corpuscular Hemoglobin Concent 31.7L, Red Cell Distribution Width 14.5, Platelet Count 117L, Neutrophils (%) (Auto) 63.7, Lymphocytes (%) (Auto) 24.1, Monocytes (%) (Auto) 7.5H, Eosinophils (%) (Auto) 2.7, Basophils (%) (Auto) 0.4 , Neutrophils # (Auto) 2.2, Lymphocytes # (Auto) 0.9L, Monocytes # (Auto) 0.3, Eosinophils # (Auto) 0.1, Basophils # (Auto) 0.0, Blood Urea Nitrogen 8, Creatinine 0.44L, Sodium Level 142, Potassium Level 3.9, Chloride Level 109H, Carbon Dioxide Level 29, Calcium Level 7.5L, Glomerular Filtration Rate > 60.0, Large Unclassified Cells # 0.1, Large Unclassified Cells % 1.7, Magnesium Level 1.8 CBC/BMP Laboratory Tests 08/31/16 05:17 Calcium Level 7.5 L, Red Blood Count 3.30 L, Mean Corpuscular Volume 93.0, Mean Corpuscular Hemoglobin 29.5, Mean Corpuscular Hemoglobin Concent 31.7 L, Red Cell Distribution Width 14.5, Neutrophils (%) (Auto) 63.7, Lymphocytes (%) (Auto ) 24.1, Monocytes (%) (Auto) 7.5 H, Eosinophils (%) (Auto) 2.7, Basophils (%) ( Auto) 0.4, Neutrophils # (Auto) 2.2, Lymphocytes # (Auto) 0.9 L, Monocytes # ( Auto) 0.3, Eosinophils # (Auto) 0.1, Basophils # (Auto) 0.0 Microbiology Microbiology 08/30/16 Clostridium difficile (PCR) - Final, Complete MARIAM GOMEZ MD Aug 31, 2016 11:34
[2016-08-31 14:00] VITALS: BP 92/56
[2016-08-31] MEDS: MIRTAZAPINE 15 MG TAB PO SCH (21:12)
[2016-08-31 22:00] VITALS: BP 98/53
[2016-09-01] MEDS: oxyCODONE 5MG TAB PO SCH ×6 (01:35→22:42)
[2016-09-01 06:00] VITALS: BP 90/62
[2016-09-01 06:32] LABS: BASO % 0.3 % (0.0-1.0); EOS # 0.1 K/mm3 (0.0-0.50); EOS % 4.2 % (0.0-3.0); LARGE UNSTAINED CELL # 0.1 K/mm3 (0.0-0.4); LYMPH # 1.1 K/mm3 (1.5-4.5); LYMPH % 35.8 % (24.0-44.0); MEAN CORPUSCULAR HEMOGLOBIN 29.2 pg (27.0-33.0); MEAN CORPUSCULAR HGB CONC 31.1 g/dl (32.0-36.5); MEAN CORPUSCULAR VOLUME 93.9 fl (80.0-96.0); MONO # 0.2 K/mm3 (0.0-0.8); MONO % 6.5 % (0.0-5.0); NEUTROPHILS # 1.5 K/mm3 (1.8-7.7); NEUTROPHILS % 51.2 % (36.0-66.0); PLATELET COUNT, AUTOMATED 111 k/mm3 (150-450); RED CELL DISTRIBUTION WIDTH 14.5 % (11.5-14.5)
[2016-09-01 06:50] LABS: ANION GAP 5 MEQ/L (8-16); BLOOD UREA NITROGEN 8 MG/DL (7-18); CALCIUM LEVEL 7.4 MG/DL (8.5-10.1); CARBON DIOXIDE LEVEL 31 MEQ/L (21-32); CHLORIDE LEVEL 107 MEQ/L (98-107); CREATININE FOR GFR 0.49 MG/DL (0.70-1.30); GLOMERULAR FILTRATION RATE > 60.0 (>56); GLUCOSE, FASTING 86 MG/DL (70-105); MAGNESIUM LEVEL 1.9 MG/DL (1.8-2.4); POTASSIUM SERUM 4.1 MEQ/L (3.5-5.1); SODIUM LEVEL 143 MEQ/L (136-145)
[2016-09-01] MEDS: SUCRALFATE SUSP 1GM/10ML UD PO SCH ×4 (08:16→20:07)
[2016-09-01] MEDS: MORPHINE 2 MG/ML 1ML SYRINGE IV PRN ×3 (08:16→20:07)
[2016-09-01] MEDS: ENOXAPARIN 40 MG/0.4 ML SYRINGE (J1650) SC SCH (08:17)
[2016-09-01] MEDS: OYSTER SHELL CALCIUM 500 MG TAB PO SCH ×2 (08:17→20:08)
[2016-09-01] MEDS: LACTOBACILLUS ACIDOPHILUS CAP (BACID) PO SCH ×2 (08:17→20:07)
[2016-09-01] MEDS: FIDAXOMICIN 200 MG TAB (DIFICID) PO SCH ×2 (08:17→20:08)
[2016-09-01] MEDS: OMEPRAZOLE 20 MG CAP PO SCH ×2 (08:17→20:08)
[2016-09-01] MEDS: VITAMIN D 1,000 INTERNATIONAL UNITS TABLET PO SCH (08:17)
[2016-09-01] MEDS: MULTIVITAMINS CHILDREN'S CHEWABLE TABLET PO SCH (08:17)
[2016-09-01] MEDS: CYANOCOBALAMIN 500 MCG TAB PO SCH (08:18)
[2016-09-01] MEDS: METOCLOPRAMIDE INJ 10MG/2ML VIAL (J2765) IV SCH ×3 (08:18→20:07)
[2016-09-01] MEDS: MORPHINE 30 MG TAB **MSIR PO PRN (12:21)
--- NOTE | 2016-09-01 12:43 | IPNPDOC ---
Date Seen The patient was seen on 09/01/16. Progress Note SUBJECTIVE: Patient reports his abdominal pain is improved but not quite to his baseline abd pain as of yet. His diarrhea is improving, he reports fewer BM's less night and they are not as watery. He requests to have a more regular diet. OBJECTIVE PHYSICAL EXAMINATION: VITAL SIGNS: Please see below. GENERAL: frail cachetic man sitting in bed nad HEENT: Bi temporal wasting, PERRL, moist mucous membranes CARDIOVASCULAR: S1S2 regular. RESPIRATORY: CTA b/l. ABDOMINAL: BS+, soft, G tube in place, TF's running, old surgical scars, diffusely TTP EXTREMITIES: wasted, no c/c/e LABORATORY DATA: Please see below. MICROBIOLOGY: Please see below. IMAGIN. An 8 mm stone lower pole right kidney, unchanged from previous CT on 07/15/2016. No hydronephrosis or hydroureter. 2. Gastrostomy tube in the upper abdomen curving into the right upper quadrant, unchanged with prior gastric surgeries, staple lines in the left upper quadrant. 3. Bowel loops without signs of obstruction or mass. No free air or signs of perforation. Solid organs upper abdomen otherwise unremarkable. DVT prophylaxis ordered?: Lovenox ASSESSMENT AND PLAN: This is a 51-year-old man with recurrent C. difficile colitis and acute on chronic abdominal pain. PROBLEMS: 1. C. difficile colitis and acute on chronic abdominal pain: The patient was positive for C. difficile colitis during his previous hospital stay 08/10 through August 04. He tells me that he completed his course of treatment and that is loose stools did improve however the last 3-4 days prior to admission it progressively worsened to the point where he felt as though it had come back. He does appear to be improving but given that he reports this is his 4th recurrence I have placed a consult to Dr. Benavides of infectious disease to help with the ongoing management. 2. Status post gastric bypass: Agent is on B12 vitamin D multivitamin and calcium supplementations. He is also on omeprazole and Carafate 3. Chronic pain: And above. 4. Major depressive disorder and avoid restrictive intake disorder: Continue with Remeron. The patient is requesting a regular diet, his diarrhea is improved given that he avoid food intake I am encouraged by his request and will provide him a regular diet and encouraged him to have several small frequent meals. 5. Nephrolithiasis: Stable continue to monitor DISPOSITION: We'll continue to monitor the patient closely VS, I&O, 24H, Diane Vital Signs/I&O Vital Signs Date Time Temp Pulse Resp B/P Pulse Ox O2 Delivery O2 Flow Rate FiO2 09/01/16 12:21 18 Room Air 09/01/16 06:00 96.8 61 90/62 99 08/29/16 17:00 0 I&O- Last 24 Hours up to 6 AM 09/01/16 06:00 Intake Total 4743 ml Output Total 0 ml Balance 4743 ml Laboratory Data 24H LABS Laboratory Tests 2 09/01/16 06:03: Anion Gap 5L, White Blood Count 3.0L, Red Blood Count 3.15L, Hemoglobin 9.2L, Hematocrit 29.6L, Mean Corpuscular Volume 93.9, Mean Corpuscular Hemoglobin 29.2 , Mean Corpuscular Hemoglobin Concent 31.1L, Red Cell Distribution Width 14.5, Platelet Count 111L, Neutrophils (%) (Auto) 51.2, Lymphocytes (%) (Auto) 35.8, Monocytes (%) (Auto) 6.5H, Eosinophils (%) (Auto) 4.2H, Basophils (%) (Auto) 0.3 , Neutrophils # (Auto) 1.5L, Lymphocytes # (Auto) 1.1L, Monocytes # (Auto) 0.2, Eosinophils # (Auto) 0.1, Basophils # (Auto) 0.0, Blood Urea Nitrogen 8, Creatinine 0.49L, Sodium Level 143, Potassium Level 4.1, Chloride Level 107, Carbon Dioxide Level 31, Calcium Level 7.4L, Glomerular Filtration Rate > 60.0, Large Unclassified Cells # 0.1, Large Unclassified Cells % 2.0, Magnesium Level 1.9 CBC/BMP Laboratory Tests 09/01/16 06:03 Calcium Level 7.4 L, Red Blood Count 3.15 L, Mean Corpuscular Volume 93.9, Mean Corpuscular Hemoglobin 29.2, Mean Corpuscular Hemoglobin Concent 31.1 L, Red Cell Distribution Width 14.5, Neutrophils (%) (Auto) 51.2, Lymphocytes (%) (Auto ) 35.8, Monocytes (%) (Auto) 6.5 H, Eosinophils (%) (Auto) 4.2 H, Basophils (%) (Auto) 0.3, Neutrophils # (Auto) 1.5 L, Lymphocytes # (Auto) 1.1 L, Monocytes # (Auto) 0.2, Eosinophils # (Auto) 0.1, Basophils # (Auto) 0.0 Microbiology Microbiology 08/30/16 Clostridium difficile (PCR) - Final, Complete MARIAM GOMEZ MD Sep 01, 2016 12:43
[2016-09-01 14:00] VITALS: BP 110/70
[2016-09-01] MEDS: ONDANSETRON 4MG/2ML VIAL (J2405) IV PRN (14:12)
[2016-09-01] MEDS: D5W/0.9% SODIUM CHLORIDE 1,000 ML IV SCH (16:13)
[2016-09-01] MEDS: MIRTAZAPINE 15 MG TAB PO SCH (20:08)
[2016-09-01 22:00] VITALS: BP 98/62
[2016-09-02] MEDS: MORPHINE 30 MG TAB **MSIR PO PRN ×3 (00:37→20:13)
--- NOTE | 2016-09-02 02:07 | CR ---
DATE OF CONSULTATION: 09/01/2016 I was asked to consult by hospitalist for evaluation of recurrent Clostridium (C) difficile colitis. HISTORY OF PRESENT ILLNESS: Mr. Stokes is a 51-year-old gentleman with a history of gastric bypass surgery done in 2012. Since then, he has had multiple complications of chronic abdominal pain, esophageal stricture, narcotic dependence, severe protein calorie malnutrition and cachexia requiring tube feeds. The patient is under the care of Dr. Delarosa who did the gastric bypass. He was admitted to [facility] on 08/01 with C. difficile. He had also been treated with Avelox for pneumonia following which he had the C. difficile. He was doing well after discharge in July after finishing his oral antibiotics for C. difficile until about 3-4 days prior to admission when he developed again recurrent diarrhea. The patient stated he was having increasing abdominal pain, nausea and vomiting. The patient is a poor historian. He stated he has had at least four different episodes of C. difficile, but some of them were at [facility]. PAST MEDICAL HISTORY: 1. C. difficile colitis July 2016. 2. Chronic abdominal pain. 3. Chronic narcotic dependence. 4. Kidney stones. 5. Gastric tube for protein calorie malnutrition. 6. Major depression recently admitted to the hospital. 7. Avoidant restrictive food intake disorder. PAST SURGICAL HISTORY: 1. Deysi-en-Y gastrojejunostomy for morbid obesity in May of 2012 with a weight of 389. 2. Appendectomy. 3. Back surgery July 2013. 4. Cholecystectomy. 5. Right hand surgery with tendon repair. 6. Percutaneous endoscopic gastrostomy (PEG) tube placement May 2016. 7. Upper gastrointestinal (GI) endoscopy was done by Dr. Minaya on 08/25/2013, which showed normal esophagus, normal jejunum. The anastomosis had a large deep circumference or ulceration at the anastomosis covered with scar and exudate with erosions, friable mucosa, islands within the island. In the ulcer crater there is edema and moderate stenosis. That was an endoscopy done in 2013. 8. Lumbar epidural steroid injection was done at the pain clinic by Dr. Griffin 2005. SOCIAL HISTORY: He is a smoker, half a pack a day, previously smoked pot. Denies alcohol abuse. He lives with his and son in an apartment in [place]. ALLERGIES: No known drug allergies. REVIEW OF SYSTEMS: The patient had low-grade fever and chills. He denied chest pain or shortness of breath. He has nausea, vomiting, severe abdominal pain, chronic diarrhea which he describes when he has the C. difficile to be 6-7 times a day with bad smell, but normally has about 2-3 a day. PHYSICAL EXAMINATION: Vital signs: Temperature is 97.7. Maximum temperature (T-max) over this admission over the past 3 days was 99, respirations 18, blood pressure 110/70, oxygen saturation 99% on room air and pulse 65. Heart: Normal S1, S2. No murmurs. Lungs are clear. No wheezes, rales or rhonchi. Abdomen: He has a G-tube, multiple healed scars of surgery, some erythema from contact dermatitis from the tape. Back: No costovertebral angle (CVA) tenderness. Mild lumbosacral tenderness. Extremities: No edema, emaciated, sick looking, chronically wasted gentleman in no acute distress. LABORATORY DATA: White count is 3, hemoglobin 9.2, hematocrit 29.6, platelets 111, 51% neutrophils, 35% lymphocytes, 6% monocytes. Sodium 143, potassium 4.1, chloride 107, bicarbonate 31, BUN 8, creatinine 0.5, glucose 86, calcium 7.4, magnesium 1.9, AST 17, ALT 14, alkaline phosphatase 127, total protein 6.9. Stool for C. difficile was positive. IMAGING STUDIES: CT of the abdomen and pelvis showed an 8 mm stone lower pole right kidney, gastrostomy tube in the upper abdomen curving into the right upper quadrant. Bowel loops without signs of obstruction or mass. No free air. Prior lumbar fusion at L5-S1. IMPRESSION: This is a 51-year-old gentleman with cachexia status post gastric bypass with chronic abdominal pain, diarrhea, on tube feeds, who is admitted with recurrent diarrhea with stool positive for Clostridium (C) difficile by PCR. The patient was started on fidaxomicin with improvement in his symptoms in the past 24 hours. On his prior hospitalization, the patient was treated with oral vancomycin at a dose of 250 mg every 6 hours. The patient has improved with Dificid 200 mg by mouth twice a day. He is also on probiotics. PLAN: Will continue fidaxomicin. The relapse rate with fidaxomicin is 50% better than with vancomycin, down to 10-15%. Hopefully, this will take care of this recurrence, otherwise the patient may need a stool transplantation if he has a third relapse. This could be discussed at a further date if that happens. The patient could have a stool transplant done through his G-tube instead of through a colonoscopy. The patient will sign a release to get the records from Dr. Delarosa as it would be ideal if we can cut back on his dose of proton pump inhibitor (PPI) to at least once a day or if that could be discontinued. I am not sure when his last endoscopy and colonoscopy were to decide on whether his PPI could be cut back, although I have doubts that that could happen with his chronic abdominal pain and Deysi-en-Y surgery. MEDICATIONS: - probiotic one tablet by mouth twice a day - Carafate 1 gram by mouth four times a day - fidaxomicin 200 mg by mouth twice a day - multivitamin one tablet by mouth daily - Lovenox 40 mg daily - morphine 2 mg IV every 8 as needed - calcium 500 mg by mouth twice a day - omeprazole 40 mg by mouth twice a day - Reglan 10 mg IV three times a day - mirtazapine 45 mg by mouth nightly - oxycodone 20 mg by mouth every 4 hours - vitamin B12 500 mcg by mouth daily - vitamin D 2000 units daily - Zofran as needed
[2016-09-02] MEDS: oxyCODONE 5MG TAB PO SCH ×6 (02:09→22:29)
[2016-09-02] MEDS: MORPHINE 2 MG/ML 1ML SYRINGE IV PRN ×2 (04:25→16:16)
[2016-09-02 06:00] VITALS: BP 98/64
[2016-09-02 06:00] LABS: BASO % 0.6 % (0.0-1.0); EOS # 0.2 K/mm3 (0.0-0.50); EOS % 5.5 % (0.0-3.0); LARGE UNSTAINED CELL # 0.1 K/mm3 (0.0-0.4); LARGE UNSTAINED CELL % 2.2 % (0.0-4.0); LYMPH # 0.9 K/mm3 (1.5-4.5); LYMPH % 30.7 % (24.0-44.0); MEAN CORPUSCULAR HEMOGLOBIN 29.9 pg (27.0-33.0); MEAN CORPUSCULAR HGB CONC 32.3 g/dl (32.0-36.5); MEAN CORPUSCULAR VOLUME 92.7 fl (80.0-96.0); MONO # 0.2 K/mm3 (0.0-0.8); NEUTROPHILS # 1.5 K/mm3 (1.8-7.7); PLATELET COUNT, AUTOMATED 114 k/mm3 (150-450); RED CELL DISTRIBUTION WIDTH 14.4 % (11.5-14.5); WHITE BLOOD COUNT 2.9 K/mm3 (4.0-10.0)
[2016-09-02] MEDS: D5W/0.9% SODIUM CHLORIDE 1,000 ML IV SCH ×2 (06:06→23:09)
[2016-09-02 06:10] LABS: ANION GAP 4 MEQ/L (8-16); BLOOD UREA NITROGEN 9 MG/DL (7-18); CARBON DIOXIDE LEVEL 31 MEQ/L (21-32); CHLORIDE LEVEL 107 MEQ/L (98-107); CREATININE FOR GFR 0.51 MG/DL (0.70-1.30); GLOMERULAR FILTRATION RATE > 60.0 (>56); GLUCOSE, FASTING 96 MG/DL (70-105); POTASSIUM SERUM 4.5 MEQ/L (3.5-5.1); SODIUM LEVEL 142 MEQ/L (136-145)
[2016-09-02] MEDS: FIDAXOMICIN 200 MG TAB (DIFICID) PO SCH ×2 (08:11→20:12)
[2016-09-02] MEDS: METOCLOPRAMIDE INJ 10MG/2ML VIAL (J2765) IV SCH ×3 (08:11→20:13)
[2016-09-02] MEDS: MULTIVITAMINS CHILDREN'S CHEWABLE TABLET PO SCH (08:11)
[2016-09-02] MEDS: SUCRALFATE SUSP 1GM/10ML UD PO SCH ×4 (08:11→20:12)
[2016-09-02] MEDS: LACTOBACILLUS ACIDOPHILUS CAP (BACID) PO SCH ×2 (08:12→20:12)
[2016-09-02] MEDS: CYANOCOBALAMIN 500 MCG TAB PO SCH (08:12)
[2016-09-02] MEDS: VITAMIN D 1,000 INTERNATIONAL UNITS TABLET PO SCH (08:12)
[2016-09-02] MEDS: OYSTER SHELL CALCIUM 500 MG TAB PO SCH ×2 (08:12→20:13)
[2016-09-02] MEDS: OMEPRAZOLE 20 MG CAP PO SCH ×2 (08:12→20:12)
[2016-09-02] MEDS: ENOXAPARIN 40 MG/0.4 ML SYRINGE (J1650) SC SCH (08:12)
--- NOTE | 2016-09-02 11:25 | IPN ---
DATE: 09/02/2016 51-year-old gentleman seen at bedside. No overnight issues reported. He is ambulating well. He states that his bowel movements do appear to have a little more form. Dr. Benavides did see him yesterday and did have a discussion regarding continue the Dificid versus stool transplant should he fail another treatment for C. Difficile. According to the patient, this is a fourth time that he has had recurrence of C. diff at this point. Otherwise, he denies fevers, chills, nausea, vomiting. No chest pain or abdominal pain. He feels that his appetite is slow to improve. OBJECTIVE: Temperature 97.8, pulse 63, respiratory rate 18, blood pressure (BP) 110/70, SPO2 98% on room air. General: The patient appears to be in no acute distress. He is pleasant. HEENT: Unremarkable. Lungs: Clear. Heart: Regular rate and rhythm. Abdomen: Soft. Extremities: No edema, no calf tenderness. LABORATORIES: White count is 2.9, hemoglobin 9 and platelets are 114,000. Sodium 142, potassium 4.5, chloride 107, bicarb 31, anion gap 4, BUN is 9, creatinine 0.51, glucose is 96. His albumin on 08/29/2016 was 2.7. ASSESSMENT/PLAN: 1. Clostridium difficile colitis, acute on chronic. Abdominal pain with recurrence of the C diff colitis. Appreciate Dr. Benavides's input. He continues on Dificid for now and may need to be considered for a stool transplant in the future should that need arise. Will defer to Dr. Benavides at this point. 2. Status post gastric bypass. The patient is on B12, vitamin D, multivitamin, and calcium supplementations. He is also on omeprazole and Carafate. He has had poor by mouth intake chronically and does have some issues with nutrition. He does have a feeding tube that is patent and will see how he continues to progress with the improvement of his symptomatology with C. diff. 3. Chronic pain, stable. 4. Major depressive disorder. Continue on Remeron. Will see how he continues with his diet. 5. Nephrolithiasis, stable. Continue to monitor. DISPOSITION AND PROGNOSIS: He does appear to be improving each day. Will continue to monitor closely. Appreciate Dr. Benavides's input.
--- NOTE | 2016-09-02 17:54 | IPN ---
DATE: 09/02/2016 Time patient was seen was at 2:30 p.m. The patient has been seen and examined at the bedside. No acute events overnight. The patient is feeling better today and stated that he no longer has diarrhea after Imodium. On medical record, the patient had one bowel movement since last night. The patient otherwise denies any fever, chills, chest pain, trouble breathing, abdominal pain, nausea, vomiting, or any problem with urination. He is still on tube feeds, which he has at home. PHYSICAL EXAMINATION: VITAL SIGNS: Temperature 97.8, pulse 63, respirations 18, blood pressure 98/64, oxygen saturation 98% on room air. GENERAL : The patient is cachectic-looking middle aged male who was alert, awake , and oriented times three. Does not appear to be in distress. Resting comfortably in bed with head elevated at 30 degrees. HEENT: Normocephalic, atraumatic. Extraocular muscles intact. Mucosa moist. NECK: Supple. No neck veins. CARDIOVASCULAR: Regular rate and rhythm. S1, S2. No murmurs, gallops or rubs. LUNGS: Clear to auscultation bilaterally. No rales, wheeze or rhonchi. ABDOMEN: The patient does have a gastric tube in the epigastric region. Incision was clean, dry and intact. The patient was receiving continuous feeding at a rate of 90 mL per hour. Otherwise, abdomen was nontender to palpation. No peritoneal signs. EXTREMITIES: No edema, clubbing, or cyanosis. SKIN: Warm and dry. NEUROLOGIC: Cranial nerves II through XII intact. No focal neurological deficits. LABORATORY DATA: WBC 2.9, hemoglobin 9, hematocrit 28, platelet count of 114 and MCV of 98.2. Sodium 142, potassium 4.5, chloride 107, bicarbonate 31, BUN 9, creatinine 0.51, GFR greater than 60, fasting glucose 96, calcium 8.0, magnesium 2.0. Clostridium (C) difficile was positive and NAP1 presumptive negative. ASSESSMENT AND PLAN: 51-year-old gentleman with cachexia, status post gastric bypass and chronic abdominal pain, diarrhea and tube feeds, admitted with recurrent diarrhea and stool positive for C difficile by PCR. The patient has been started on fidaxomicin with improvement of his symptoms. Since last night, the patient only had one bowel movement. On prior admissions, the patient also has been treated with vancomycin at a dose of 250 mL every 6 hours. The patient is also on probiotic. We recommend to continue fidaxomicin and the relapse rate for fidaxomicin better than vancomycin, down to 10 to 15%. At this point, the patient is close to being ready for discharge from infectious disease standpoint. In addition, medical record has been reviewed from previous admission at [facility] with Dr. Delarosa. However, we were not able to find the reason for proton pump inhibitor, possibly due to the patient's Deysi-en-Y surgery to prevent marginal ulcer. Will need further investigation, possibly outpatient. The patient has been discussed with attending doctor, Dr. Benavides. My preceptor for this patient encounter was Dr. Benavides. The preceptor was physically present in the building during the encounter and was fully available. As needed, all aspects of the patient interview, examination, medical decision making process, and medical care plan development were reviewed and approved by the preceptor. The preceptor is aware and concurs with the plan as stated in the body of this note and will attest to such by his/her cosignature. MINDA
[2016-09-02] MEDS: MIRTAZAPINE 15 MG TAB PO SCH (20:12)
[2016-09-02 22:00] VITALS: BP 102/70
[2016-09-03] MEDS: oxyCODONE 5MG TAB PO SCH ×6 (02:13→21:09)
[2016-09-03 06:00] VITALS: BP 98/64
[2016-09-03] MEDS: MORPHINE 2 MG/ML 1ML SYRINGE IV PRN (06:44)
[2016-09-03 06:57] LABS: BASO % 0.5 % (0.0-1.0); EOS # 0.1 K/mm3 (0.0-0.50); EOS % 4.1 % (0.0-3.0); LARGE UNSTAINED CELL # 0.1 K/mm3 (0.0-0.4); LARGE UNSTAINED CELL % 2.1 % (0.0-4.0); LYMPH # 0.9 K/mm3 (1.5-4.5); MEAN CORPUSCULAR HEMOGLOBIN 29.7 pg (27.0-33.0); MEAN CORPUSCULAR HGB CONC 31.6 g/dl (32.0-36.5); MEAN CORPUSCULAR VOLUME 94.1 fl (80.0-96.0); MONO # 0.3 K/mm3 (0.0-0.8); MONO % 8.4 % (0.0-5.0); NEUTROPHILS # 2.1 K/mm3 (1.8-7.7); NEUTROPHILS % 59.9 % (36.0-66.0); PLATELET COUNT, AUTOMATED 150 k/mm3 (150-450); RED CELL DISTRIBUTION WIDTH 14.4 % (11.5-14.5); WHITE BLOOD COUNT 3.5 K/mm3 (4.0-10.0)
[2016-09-03 07:19] LABS: ANION GAP 4 MEQ/L (8-16); BLOOD UREA NITROGEN 11 MG/DL (7-18); CALCIUM LEVEL 8.4 MG/DL (8.5-10.1); CARBON DIOXIDE LEVEL 31 MEQ/L (21-32); CHLORIDE LEVEL 105 MEQ/L (98-107); CREATININE FOR GFR 0.57 MG/DL (0.70-1.30); GLOMERULAR FILTRATION RATE > 60.0 (>56); GLUCOSE, FASTING 79 MG/DL (70-105); MAGNESIUM LEVEL 2.2 MG/DL (1.8-2.4); POTASSIUM SERUM 4.5 MEQ/L (3.5-5.1); SODIUM LEVEL 140 MEQ/L (136-145)
[2016-09-03] MEDS: ENOXAPARIN 40 MG/0.4 ML SYRINGE (J1650) SC SCH (09:40)
[2016-09-03] MEDS: LACTOBACILLUS ACIDOPHILUS CAP (BACID) PO SCH ×2 (09:40→21:09)
[2016-09-03] MEDS: SUCRALFATE SUSP 1GM/10ML UD PO SCH ×4 (09:40→21:09)
[2016-09-03] MEDS: METOCLOPRAMIDE INJ 10MG/2ML VIAL (J2765) IV SCH ×3 (09:40→21:10)
[2016-09-03] MEDS: OMEPRAZOLE 20 MG CAP PO SCH ×2 (09:40→21:09)
[2016-09-03] MEDS: FIDAXOMICIN 200 MG TAB (DIFICID) PO SCH ×2 (09:41→21:10)
[2016-09-03] MEDS: VITAMIN D 1,000 INTERNATIONAL UNITS TABLET PO SCH (09:41)
[2016-09-03] MEDS: OYSTER SHELL CALCIUM 500 MG TAB PO SCH ×2 (09:41→21:10)
[2016-09-03] MEDS: CYANOCOBALAMIN 500 MCG TAB PO SCH (09:41)
[2016-09-03] MEDS: MULTIVITAMINS CHILDREN'S CHEWABLE TABLET PO SCH (09:41)
[2016-09-03] MEDS ORDERED: DIFI200T PO (10:30)
[2016-09-03] MEDS: MORPHINE 30 MG TAB **MSIR PO PRN (12:09)
[2016-09-03] MEDS: D5W/0.9% SODIUM CHLORIDE 1,000 ML IV SCH (12:10)
--- NOTE | 2016-09-03 13:28 | IPN ---
DATE: 09/03/2016 51-year-old gentleman seen at bedside. No overnight issues. He is ambulating well. He states his bowel movements are more formed. Denies chest pain, nausea or vomiting. OBJECTIVE: Temperature is 97.3, pulse 58, respiratory rate 16, blood pressure (BP) 98/64 with mean arterial pressure of 75, SpO2 is 99% on room air. General: The patient appears to be in no acute distress, alert, pleasant. HEENT: Unremarkable. Lungs: Clear. Heart: Regular rate and rhythm. Abdomen: Soft. Extremities: No edema, no calf tenderness. LABORATORY DATA: White count 3.5, hemoglobin 9.7, platelets are 150,000. Sodium is 140, potassium 4.5, chloride 105, bicarbonate 31, anion gap 4, BUN 11, creatinine 0.57, glucose 79. ASSESSMENT AND PLAN: 1. Clostridium (C) difficile colitis, recurrent. Appreciate Dr. Benavides's input. I did send a prescription in for Dificid today to see if we have a prior authorization. 2. Status post gastric bypass. The patient continues on B12, vitamin B, multivitamin and calcium supplementation. Had previously been on omeprazole, which may have contributed to his C difficile. 3. Chronic pain, stable. He can followup with his primary care provider. 4. Major depressive disorder. Continue on Remeron. No suicidal ideation. No audiovisual sedation. 5. History of nephrolithiasis, stable. Continue to monitor. DISPOSITION: Prognosis appears to be improving. Will continue to monitor closely. Appreciate Dr. Benavides's input. Dificid prescription was sent for possible prior authorization. He does continue with tube feedings. Patient and family services (PFS) has been consulted, and we will see if we move him towards discharge within the next day or so.
[2016-09-03 14:00] VITALS: BP 98/62
[2016-09-03] MEDS: ONDANSETRON 4MG/2ML VIAL (J2405) IV PRN (15:24)
[2016-09-03] MEDS: MIRTAZAPINE 15 MG TAB PO SCH (21:10)
[2016-09-04] MEDS: D5W/0.9% SODIUM CHLORIDE 1,000 ML IV SCH ×2 (01:45→15:28)
[2016-09-04] MEDS: oxyCODONE 5MG TAB PO SCH ×6 (01:46→22:31)
[2016-09-04 06:22] LABS: BASO % 0.5 % (0.0-1.0); EOS # 0.2 K/mm3 (0.0-0.50); EOS % 5.4 % (0.0-3.0); LARGE UNSTAINED CELL # 0.1 K/mm3 (0.0-0.4); LARGE UNSTAINED CELL % 2.2 % (0.0-4.0); LYMPH # 0.8 K/mm3 (1.5-4.5); LYMPH % 27.2 % (24.0-44.0); MEAN CORPUSCULAR HEMOGLOBIN 29.5 pg (27.0-33.0); MEAN CORPUSCULAR VOLUME 92.3 fl (80.0-96.0); MONO # 0.2 K/mm3 (0.0-0.8); MONO % 8.5 % (0.0-5.0); NEUTROPHILS # 1.6 K/mm3 (1.8-7.7); NEUTROPHILS % 56.3 % (36.0-66.0); PLATELET COUNT, AUTOMATED 136 k/mm3 (150-450); RED CELL DISTRIBUTION WIDTH 14.5 % (11.5-14.5); WHITE BLOOD COUNT 2.8 K/mm3 (4.0-10.0)
[2016-09-04 06:30] LABS: ANION GAP 5 MEQ/L (8-16); BLOOD UREA NITROGEN 11 MG/DL (7-18); CALCIUM LEVEL 7.9 MG/DL (8.5-10.1); CARBON DIOXIDE LEVEL 32 MEQ/L (21-32); CHLORIDE LEVEL 104 MEQ/L (98-107); CREATININE FOR GFR 0.51 MG/DL (0.70-1.30); GLOMERULAR FILTRATION RATE > 60.0 (>56); GLUCOSE, FASTING 105 MG/DL (70-105); MAGNESIUM LEVEL 2.1 MG/DL (1.8-2.4); POTASSIUM SERUM 4.8 MEQ/L (3.5-5.1); SODIUM LEVEL 141 MEQ/L (136-145)
[2016-09-04] MEDS: OMEPRAZOLE 20 MG CAP PO SCH ×2 (08:17→20:37)
[2016-09-04] MEDS: LACTOBACILLUS ACIDOPHILUS CAP (BACID) PO SCH ×2 (08:17→20:36)
[2016-09-04] MEDS: MULTIVITAMINS CHILDREN'S CHEWABLE TABLET PO SCH (08:17)
[2016-09-04] MEDS: FIDAXOMICIN 200 MG TAB (DIFICID) PO SCH ×2 (08:17→20:48)
[2016-09-04] MEDS: CYANOCOBALAMIN 500 MCG TAB PO SCH (08:18)
[2016-09-04] MEDS: METOCLOPRAMIDE INJ 10MG/2ML VIAL (J2765) IV SCH ×3 (08:18→20:37)
[2016-09-04] MEDS: SUCRALFATE SUSP 1GM/10ML UD PO SCH ×4 (08:18→20:37)
[2016-09-04] MEDS: OYSTER SHELL CALCIUM 500 MG TAB PO SCH ×2 (08:18→20:36)
[2016-09-04] MEDS: VITAMIN D 1,000 INTERNATIONAL UNITS TABLET PO SCH (08:18)
[2016-09-04] MEDS: ENOXAPARIN 40 MG/0.4 ML SYRINGE (J1650) SC SCH (08:19)
[2016-09-04] MEDS: MORPHINE 2 MG/ML 1ML SYRINGE IV PRN ×2 (08:20→20:48)
--- NOTE | 2016-09-04 11:19 | IPN ---
DATE: 09/04/2016 51-year-old gentleman seen at bedside. No overnight issues, resting comfortably. Doing well with his feeding tube and states his bowel movements were a little more formed. OBJECTIVE: Temperature 98.8, pulse 73 and regular, respiratory rate is 16 nonlabored, BP 98/62 with mean arterial pressure of 72, SPO2 is 99% on room air. General: The patient appears to be in no acute distress. He is alert, pleasant. HEENT: Unremarkable. Lungs: Clear. Heart: Regular rate and rhythm. Abdomen: Soft. Extremities: No edema or calf tenderness. LABORATORY DATA: White count 2.8, hemoglobin is 8.8, platelets are 136,000. Sodium 141, potassium 4.8, chloride 104, bicarb 32, anion gap 5, BUN is 11, creatinine 0.51, glucose 105. ASSESSMENT/PLAN: 1. Clostridium difficile colitis with recurrence. Appreciate Dr. Benavides's input. Dificid prescription has been sent in. It does appear to be still pretty expensive. I did discuss this with Dr. Benavides who feels that there may be a patient assistance program. We will see if Patient [facility] Family Services (PFS) can assist. 2. Symptomatic anemia with some generalized weakness. His blood pressure does appear to be nominally low. Will go ahead and do a unit of packed red blood cells today and check stool for guaiac. 3. Status post gastric bypass. Continue with supplementations as outlined previously. 4. Chronic pain which he can followup with his primary care provider. 5. Major depression. Continue on Remeron. No suicidal ideation or audiovisual hallucinations. 6. History of nephrolithiasis. No current issues. DISPOSITION: Prognosis is much improved. Appreciate Dr. Benavides's assistance as well as [facility] regarding getting his Dificid prescription arranged for home. Anticipate home discharge perhaps as early as tomorrow.
[2016-09-04] MEDS: MORPHINE 30 MG TAB **MSIR PO PRN (12:14)
[2016-09-04 14:00] VITALS: BP 110/66
--- NOTE | 2016-09-04 19:24 | IPN ---
DATE: 09/04/2016 Mr. Stokes seems to be doing much better. He only had two bowel movements today which was semi-formed. He has mild abdominal pain. No nausea, vomiting or diarrhea. He is on Dificid 200 mg by mouth twice a day, day #5. LABORATORY DATA: White count is 2.8, hemoglobin 8.8, hematocrit 27.5, platelets 36. Sodium 144, potassium 4.8, chloride 104, bicarb 32, BUN 11, creatinine 0.5, glucose 185. PHYSICAL EXAM: HEART: Normal S1-S2 murmurs. LUNGS: Clear. No wheezes or rhonchi. ABDOMEN: Soft and mildly tender around the G tube. EXTREMITIES: No edema. BACK: Costovertebral angle tenderness. IMPRESSION/ PLAN : Recurrent C difficile colitis doing much better on the fidaxomicin 200 ng by mouth twice a day. The patient needs 10 days of treatment. His copay was very high and therefore I gave Estiven Knapp, Patient Family Services (PFS), the assistance program to help with copays. He will try to get the prescription covered through the copay assistance program. If it is denied then he could go home on vancomycin 250 four times a day for 10 days. MTDD
[2016-09-04] MEDS: MIRTAZAPINE 15 MG TAB PO SCH (20:36)
[2016-09-04 20:50] VITALS: BP 104/68
[2016-09-05] MEDS: D5W/0.9% SODIUM CHLORIDE 1,000 ML IV SCH ×2 (02:43→17:42)
[2016-09-05] MEDS: oxyCODONE 5MG TAB PO SCH ×6 (02:44→21:23)
[2016-09-05 05:00] VITALS: BP 102/62
[2016-09-05 05:58] LABS: BASO % 0.3 % (0.0-1.0); EOS # 0.2 K/mm3 (0.0-0.50); EOS % 5.2 % (0.0-3.0); LARGE UNSTAINED CELL # 0.1 K/mm3 (0.0-0.4); LARGE UNSTAINED CELL % 2.7 % (0.0-4.0); LYMPH # 0.9 K/mm3 (1.5-4.5); LYMPH % 27.2 % (24.0-44.0); MEAN CORPUSCULAR HEMOGLOBIN 29.4 pg (27.0-33.0); MEAN CORPUSCULAR HGB CONC 32.1 g/dl (32.0-36.5); MEAN CORPUSCULAR VOLUME 91.7 fl (80.0-96.0); MONO # 0.3 K/mm3 (0.0-0.8); MONO % 10.2 % (0.0-5.0); NEUTROPHILS # 1.6 K/mm3 (1.8-7.7); NEUTROPHILS % 54.5 % (36.0-66.0); PLATELET COUNT, AUTOMATED 145 k/mm3 (150-450); RED CELL DISTRIBUTION WIDTH 14.9 % (11.5-14.5); WHITE BLOOD COUNT 2.9 K/mm3 (4.0-10.0)
[2016-09-05 06:07] LABS: ANION GAP 4 MEQ/L (8-16); BLOOD UREA NITROGEN 13 MG/DL (7-18); CALCIUM LEVEL 7.8 MG/DL (8.5-10.1); CARBON DIOXIDE LEVEL 31 MEQ/L (21-32); CHLORIDE LEVEL 104 MEQ/L (98-107); CREATININE FOR GFR 0.47 MG/DL (0.70-1.30); GLOMERULAR FILTRATION RATE > 60.0 (>56); GLUCOSE, FASTING 84 MG/DL (70-105); POTASSIUM SERUM 4.5 MEQ/L (3.5-5.1); SODIUM LEVEL 139 MEQ/L (136-145)
[2016-09-05] MEDS: MORPHINE 30 MG TAB **MSIR PO PRN ×2 (09:05→15:34)
[2016-09-05] MEDS: CYANOCOBALAMIN 500 MCG TAB PO SCH (09:06)
[2016-09-05] MEDS: LACTOBACILLUS ACIDOPHILUS CAP (BACID) PO SCH ×2 (09:06→21:22)
[2016-09-05] MEDS: OMEPRAZOLE 20 MG CAP PO SCH ×2 (09:06→21:22)
[2016-09-05] MEDS: VITAMIN D 1,000 INTERNATIONAL UNITS TABLET PO SCH (09:06)
[2016-09-05] MEDS: OYSTER SHELL CALCIUM 500 MG TAB PO SCH ×2 (09:06→21:23)
[2016-09-05] MEDS: SUCRALFATE SUSP 1GM/10ML UD PO SCH ×4 (09:06→21:21)
[2016-09-05] MEDS: METOCLOPRAMIDE INJ 10MG/2ML VIAL (J2765) IV SCH ×3 (09:06→21:23)
[2016-09-05] MEDS: MULTIVITAMINS CHILDREN'S CHEWABLE TABLET PO SCH (09:06)
[2016-09-05] MEDS: ENOXAPARIN 40 MG/0.4 ML SYRINGE (J1650) SC SCH (09:07)
[2016-09-05] MEDS ORDERED: VANC250C2 PO (10:28)
[2016-09-05] MEDS: FIDAXOMICIN 200 MG TAB (DIFICID) PO SCH ×2 (10:35→21:22)
--- NOTE | 2016-09-05 12:49 | DSES ---
DATE OF ADMISSION: 09/01/2016 DATE OF DISCHARGE: 09/05/2016 PRIMARY CARE PROVIDER: Dr. Marrero CONSULTANTS: Dr. Benavides PROCEDURES: None. COMPLICATIONS: None. ADMISSION/DISCHARGE DIAGNOSES: 1. Abdominal pain with related recurrent Clostridium (C) difficile colitis. 2. Mild dehydration, resolved. 3. Acute on chronic abdominal pain, stable. 4. Esophageal stricture. Follows with Dr. Delarosa in [place]. 5. Chronic low back pain. 6. Severe protein calorie malnutrition, status post gastric bypass. 7. Major depression in remission. 8. History of peptic ulcer disease. No current issues. Continues on Carafate and omeprazole, which the omeprazole has been placed on hold due to recurrent Clostridium (C) difficile colitis. BRIEF HOSPITAL COURSE: Mr. Stokes is a pleasant, 51-year-old gentleman presented to the emergency department on 08/29/2016 for increasing abdominal pain, recurrent episodes of diarrhea for the past 3-4 years and symptoms have now gotten worse. He has completed a previous treatment July of 2016 for C difficile colitis completing a course of vancomycin and his symptoms have now recurred. He was seen through the emergency department, felt to have some mild dehydration. CT did not show any significant abnormalities. However, we did have quite a bit of loose stool. C difficile polymerase chain reaction (PCR) was positive with negative NAP of 1. He was admitted, started on intravenous (IV) fluids. Continued with his feedings through his feeding tube and Dr. Benavides was consulted. Started on Dificid. However, we attempted to get the Dificid to cover for outpatient therapy and it was too expensive even with patient assistance. Therefore, we elected to, with Dr. Benavides's guidance, to resume vancomycin at 250 mg by mouth four times daily for 10 days. Otherwise, he appears to be appropriate for discharge. PHYSICAL EXAMINATION: Temperature is 99.7, pulse 72 and regular, respiratory rate is 16, blood pressure (BP) is 102/62 with mean arterial pressure of 75, SpO2 95% on room air. General: The patient appears to be in no acute distress. He is alert, oriented , pleasant. HEENT: Unremarkable. Lungs: Clear. Heart: Regular rate and rhythm. Abdomen: Soft. Extremities: No edema, no calf tenderness. LABORATORIES: White count is 2.9, hemoglobin 9.5, platelets are 145,000. Sodium 139, potassium 4.5, chloride 104, bicarbonate 31, anion gap 4, BUN is 13, creatinine 0.47, glucose is 84. Discharge condition is good. DISPOSITION: Discharged home. DISCHARGE MEDICATIONS: - vancomycin 250 mg four times a day for 10 days - vitamin D 50,000 units daily - vitamin B12 500 mcg daily - Bacid one tablet twice a day - mirtazapine 45 mg nightly - omeprazole is placed on hold due to association with C difficile colitis. - oxycodone 20 mg every 4 hours as needed - calcium 500 mg twice a day - Carafate four times a day - multivitamin one tablet daily DISCHARGE INSTRUCTIONS: Discharged home. Activity as tolerated. Followup with primary care provider in the next 1-[address] Benavides within the next week. Diet as tolerated. Seek medical attention if symptoms worsen or progress. He voices understanding. Discharge took 35 minutes. Addendum: delayed d/c due to lack of finances to afford either oral vancomycin or dificid. Will likely need to complete treatment then d/c home MTDD
--- NOTE | 2016-09-05 13:26 | IPN ---
DATE: 09/05/2016 Time patient was seen was this morning at 9:30. Patient has been seen and examined at bedside. No acute events overnight. Patient had three bowel movements yesterday and also one early this morning. Still admits to some abdominal pain. However, it was chronic and controlled per patient. Denies any nausea or vomiting. Denies any fever or chills, any chest pain, trouble breathing. Denies any problem with urination. PHYSICAL EXAMINATION: VITAL SIGNS: Temperature 99.7, pulse 72, respirations 17, blood pressure 102/62 , oxygen was saturating at 98% on room air. GENERAL : Patient is a thin-looking middle aged male who was alert, awake, and oriented times three. Does not appear to be in distress. Laying comfortably in bed with head elevated at a 45 degree angle. HEENT: Normocephalic, atraumatic. Extraocular muscles intact. Mucosa moist. NECK: Supple. No neck lymphadenopathy. CARDIOVASCULAR: Regular rate and rhythm. S1, S2. No murmurs, gallops or rubs. LUNGS: Clear to auscultation bilaterally. No rales, wheeze or rhonchi. ABDOMEN: Mildly tender to palpation in all four quadrants. However, no peritoneal signs, no ecchymosis. Positive bowel sound. Patient does have the gastrostomy (G) tube in the epigastric region, which was clean, dry and intact. EXTREMITIES: Patient does have 1+ pitting edema in bilateral lower extremity. SKIN: Warm and dry. NEUROLOGIC: Cranial nerves II-XII intact. No focal neurological deficits. LABORATORIES: WBC 2.8, hemoglobin 9.5, hematocrit 29.6, with platelet count of 145 and MCV of 91.7. Sodium 139, potassium 4.5, chloride 104, bicarbonate 31, BUN 13, creatinine 0.47 , GFR greater than 60, fasting glucose 84, calcium 8.7, magnesium 2. Patient's occult blood was negative. There is no new imaging. ASSESSMENT AND PLAN: 51-year-old male presented with recurrent Clostridium (C) difficile colitis, which is doing much better on fidaxomicin. Patient will need 10 days of treatment. Due to patient's copay was very high, Dr. Benavides has requested help from Krystina Knapp, patient and family services ([facility]) for assistance program to help with the copay. Otherwise, from the infectious disease standpoint, patient may be discharged and if patient's copay cannot be afforded and there is no patient assistance He may go home on vancomycin 250 mg four times a day for 10 days. The patient has been discussed with attending doctor, Dr. Benavides. My preceptor for this patient encounter was Khoa Benavides MD. The preceptor was physically present in the building during the encounter and was fully available. As needed, all aspects of the patient interview, examination, medical decision making process, and medical care plan development were reviewed and approved by the preceptor. The preceptor is aware and concurs with the plan as stated in the body of this note and will attest to such by his/her co-signature. MINDA
[2016-09-05 14:00] VITALS: BP 110/68
[2016-09-05] MEDS: MIRTAZAPINE 15 MG TAB PO SCH (21:22)
[2016-09-05 22:00] VITALS: BP 115/72
[2016-09-06] MEDS: MORPHINE 30 MG TAB **MSIR PO PRN ×4 (00:08→23:17)
[2016-09-06] MEDS: oxyCODONE 5MG TAB PO SCH ×6 (02:02→21:09)
[2016-09-06 06:00] VITALS: BP 96/52
[2016-09-06] MEDS: D5W/0.9% SODIUM CHLORIDE 1,000 ML IV SCH ×2 (06:00→18:02)
[2016-09-06] MEDS: ENOXAPARIN 40 MG/0.4 ML SYRINGE (J1650) SC SCH (09:00)
[2016-09-06 09:04] LABS: MEAN CORPUSCULAR HEMOGLOBIN 29.1 pg (27.0-33.0); MEAN CORPUSCULAR HGB CONC 31.6 g/dl (32.0-36.5); MEAN CORPUSCULAR VOLUME 92.1 fl (80.0-96.0); RED CELL DISTRIBUTION WIDTH 14.8 % (11.5-14.5); WHITE BLOOD COUNT 3.3 K/mm3 (4.0-10.0)
[2016-09-06] MEDS: OYSTER SHELL CALCIUM 500 MG TAB PO SCH ×2 (09:17→21:07)
[2016-09-06] MEDS: VITAMIN D 1,000 INTERNATIONAL UNITS TABLET PO SCH (09:18)
[2016-09-06] MEDS: METOCLOPRAMIDE INJ 10MG/2ML VIAL (J2765) IV SCH ×3 (09:19→21:07)
[2016-09-06] MEDS: SUCRALFATE SUSP 1GM/10ML UD PO SCH ×4 (09:19→21:07)
[2016-09-06] MEDS: CYANOCOBALAMIN 500 MCG TAB PO SCH (09:19)
[2016-09-06] MEDS: OMEPRAZOLE 20 MG CAP PO SCH ×2 (09:19→21:07)
[2016-09-06] MEDS: MULTIVITAMINS CHILDREN'S CHEWABLE TABLET PO SCH (09:19)
[2016-09-06] MEDS: LACTOBACILLUS ACIDOPHILUS CAP (BACID) PO SCH ×2 (09:19→21:07)
[2016-09-06 09:31] LABS: ANION GAP 3 MEQ/L (8-16); BLOOD UREA NITROGEN 14 MG/DL (7-18); CALCIUM LEVEL 7.9 MG/DL (8.5-10.1); CARBON DIOXIDE LEVEL 32 MEQ/L (21-32); CHLORIDE LEVEL 105 MEQ/L (98-107); CREATININE FOR GFR 0.51 MG/DL (0.70-1.30); GLOMERULAR FILTRATION RATE > 60.0 (>56); GLUCOSE, FASTING 87 MG/DL (70-105); POTASSIUM SERUM 4.5 MEQ/L (3.5-5.1); SODIUM LEVEL 140 MEQ/L (136-145)
--- NOTE | 2016-09-06 10:30 | IPN ---
DATE OF SERVICE: 09/06/2016 A 51-year-old gentleman seen at bedside resting comfortably. No overnight issues reported. He is ambulating well. No chest pain, shortness of breath, abdominal pain. OBJECTIVE: Temperature is 97.5, pulse 63, respiratory rate 16, blood pressure (BP) 96/52 with mean arterial pressure of 67, SpO2 is 97% on room air. General: The patient appears to be in no acute distress. He has alert, oriented, pleasant to talk to. HEENT: Unremarkable. Lungs: Clear. Heart: Regular rate and rhythm. Abdomen: Soft. Extremities: No edema. No calf tenderness. LABORATORY DATA: White count 3.3, hemoglobin 9.4, platelets 137,000. Sodium 140, potassium 4.5, chloride 105, bicarbonate 32, anion gap 3, BUN is 14, creatinine 0.51, glucose 87. ASSESSMENT AND PLAN: 1. Abdominal pain with related Clostridium (C) difficile colitis. 2. Mild dehydration, resolved. 3. Acute on chronic abdominal pain, which is stable. 4. Esophageal stricture, which he can follow as an outpatient. 5. Chronic low back pain, stable. 6. Severe protein calorie malnutrition secondary to status post gastric bypass. He does have polycythemia. Stable. 7. Major depression disorder. Appears to be stable. 8. History of peptic ulcer disease. No current issues. Omeprazole has been placed on hold. Continue with Carafate. 9. Deep venous thrombosis (DVT) prophylaxis is on board. The patient remains ambulatory. DISPOSITION: The patient, unfortunately, was unable to be discharged due to financial concerns. Unable to afford the Dificid. We did attempt vancomycin; and, again, this proved to be too expensive. He does appear to be doing better with more formed stool. Will keep him on Dificid through the weekend. Since we are up against a holiday weekend, we may need to reevaluate this on Thursday.
[2016-09-06] MEDS: FIDAXOMICIN 200 MG TAB (DIFICID) PO SCH ×2 (13:49→21:07)
[2016-09-06 14:00] VITALS: BP 105/69
[2016-09-06] MEDS: MIRTAZAPINE 15 MG TAB PO SCH (21:07)
[2016-09-06 22:00] VITALS: BP 98/68
[2016-09-07] MEDS: oxyCODONE 5MG TAB PO SCH ×6 (01:57→20:52)
[2016-09-07] MEDS: D5W/0.9% SODIUM CHLORIDE 1,000 ML IV SCH ×2 (05:26→18:07)
[2016-09-07 06:00] VITALS: BP 98/60
[2016-09-07 06:14] LABS: MEAN CORPUSCULAR HEMOGLOBIN 29.3 pg (27.0-33.0); MEAN CORPUSCULAR HGB CONC 31.9 g/dl (32.0-36.5); MEAN CORPUSCULAR VOLUME 91.8 fl (80.0-96.0); RED CELL DISTRIBUTION WIDTH 14.8 % (11.5-14.5); WHITE BLOOD COUNT 3.1 K/mm3 (4.0-10.0)
[2016-09-07 06:24] LABS: ANION GAP 5 MEQ/L (8-16); BLOOD UREA NITROGEN 14 MG/DL (7-18); CARBON DIOXIDE LEVEL 30 MEQ/L (21-32); CHLORIDE LEVEL 105 MEQ/L (98-107); CREATININE FOR GFR 0.47 MG/DL (0.70-1.30); GLOMERULAR FILTRATION RATE > 60.0 (>56); GLUCOSE, FASTING 93 MG/DL (70-105); POTASSIUM SERUM 4.4 MEQ/L (3.5-5.1); SODIUM LEVEL 140 MEQ/L (136-145)
[2016-09-07] MEDS: MULTIVITAMINS CHILDREN'S CHEWABLE TABLET PO SCH (08:19)
[2016-09-07] MEDS: LACTOBACILLUS ACIDOPHILUS CAP (BACID) PO SCH ×2 (08:19→20:50)
[2016-09-07] MEDS: SUCRALFATE SUSP 1GM/10ML UD PO SCH ×4 (08:19→20:49)
[2016-09-07] MEDS: FIDAXOMICIN 200 MG TAB (DIFICID) PO SCH ×2 (08:19→20:49)
[2016-09-07] MEDS: VITAMIN D 1,000 INTERNATIONAL UNITS TABLET PO SCH (08:19)
[2016-09-07] MEDS: OMEPRAZOLE 20 MG CAP PO SCH ×2 (08:20→20:50)
[2016-09-07] MEDS: MORPHINE 30 MG TAB **MSIR PO PRN ×3 (08:20→22:51)
[2016-09-07] MEDS: METOCLOPRAMIDE INJ 10MG/2ML VIAL (J2765) IV SCH ×3 (08:20→20:50)
[2016-09-07] MEDS: OYSTER SHELL CALCIUM 500 MG TAB PO SCH ×2 (08:20→20:50)
[2016-09-07] MEDS: ENOXAPARIN 40 MG/0.4 ML SYRINGE (J1650) SC SCH (08:21)
[2016-09-07] MEDS: CYANOCOBALAMIN 500 MCG TAB PO SCH (08:21)
--- NOTE | 2016-09-07 10:47 | IPN ---
DATE OF SERVICE: 09/07/2016 Mr. Stokes is a pleasant 51-year-old gentleman who unfortunately has had recurrence of Clostridium (C) difficile colitis. Doing well. Currently on Dificid. He does have a feeding tube, which he is currently using a kangaroo pump for continuous feedings , and he has supplies at home for this, as well. He denies chest pain, nausea, vomiting. No fevers, chills. OBJECTIVE: Temperature is 97.3, pulse 64, respiratory rate 18, blood pressure (BP) 98/60 with mean arterial pressure of 73, SpO2 is 98% on room air. General: The patient appears to be in no acute distress. He is alert, oriented , pleasant. HEENT: Unremarkable. Lungs: Clear. Heart: Regular rate and rhythm. Abdomen: Soft. Extremities: No edema. No calf tenderness. LABORATORY DATA: White count 3.1, hemoglobin 9.0, platelets 139,000. Sodium 140, potassium 4.4, chloride 105, bicarbonate 30, anion gap 5, BUN is 14, creatinine 0.47. ASSESSMENT AND PLAN: 1. Abdominal pain related to Clostridium (C) difficile colitis, stable otherwise. Continue Dificid. We did attempt to have this covered by his insurance, as well as vancomycin. However, the patient has a high copay deductible. Was unable to afford this outpatient. Will defer this to patient and family services (PFS) and will reevaluate on Thursday morning. 2. Mild dehydration, resolved. 3. Acute on chronic abdominal pain, stable. 4. History of esophageal stricture with G tube and feedings as outlined previously. 5. Chronic low back pain, stable. 6. Severe protein-calorie malnutrition secondary to his esophageal stricture, and he is status post gastric bypass. He does have polycythemia, but this is stable. Will continue to follow. 7. Major depressive disorder, stable. 8. History of peptic ulcer disease. No current issues. Continue on Carafate. Omeprazole has been on hold, since this could place him at greater risk for recurrence of C. difficile. 9. Deep venous thrombosis (DVT) prophylaxis is on board. He does remain ambulatory. DISPOSITION: Will see how he is doing tomorrow. Reevaluate with multidisciplinary rounds, PFS to see how we could safely move him towards discharge to make sure that his medications are taken care of at home. [facility]
[2016-09-07 14:00] VITALS: BP 99/61
[2016-09-07] MEDS: MIRTAZAPINE 15 MG TAB PO SCH (20:50)
[2016-09-07 22:00] VITALS: BP 100/62
[2016-09-08] MEDS: oxyCODONE 5MG TAB PO SCH ×6 (01:50→22:14)
[2016-09-08 06:00] VITALS: BP 94/68
[2016-09-08 07:10] LABS: MEAN CORPUSCULAR HEMOGLOBIN 29.6 pg (27.0-33.0); MEAN CORPUSCULAR VOLUME 92.6 fl (80.0-96.0)
[2016-09-08 07:23] LABS: ANION GAP 3 MEQ/L (8-16); BLOOD UREA NITROGEN 15 MG/DL (7-18); CALCIUM LEVEL 8.2 MG/DL (8.5-10.1); CARBON DIOXIDE LEVEL 31 MEQ/L (21-32); CHLORIDE LEVEL 105 MEQ/L (98-107); CREATININE FOR GFR 0.52 MG/DL (0.70-1.30); GLOMERULAR FILTRATION RATE > 60.0 (>56); GLUCOSE, FASTING 75 MG/DL (70-105); POTASSIUM SERUM 4.6 MEQ/L (3.5-5.1); SODIUM LEVEL 139 MEQ/L (136-145)
[2016-09-08] MEDS: CYANOCOBALAMIN 500 MCG TAB PO SCH (08:27)
[2016-09-08] MEDS: D5W/0.9% SODIUM CHLORIDE 1,000 ML IV SCH (08:27)
[2016-09-08] MEDS: VITAMIN D 1,000 INTERNATIONAL UNITS TABLET PO SCH (08:27)
[2016-09-08] MEDS: LACTOBACILLUS ACIDOPHILUS CAP (BACID) PO SCH ×2 (08:27→22:13)
[2016-09-08] MEDS: OMEPRAZOLE 20 MG CAP PO SCH ×2 (08:27→22:14)
[2016-09-08] MEDS: MORPHINE 30 MG TAB **MSIR PO PRN ×2 (08:27→15:54)
[2016-09-08] MEDS: OYSTER SHELL CALCIUM 500 MG TAB PO SCH ×2 (08:27→22:13)
[2016-09-08] MEDS: METOCLOPRAMIDE INJ 10MG/2ML VIAL (J2765) IV SCH ×3 (08:28→22:01)
[2016-09-08] MEDS: SUCRALFATE SUSP 1GM/10ML UD PO SCH ×4 (08:28→22:13)
[2016-09-08] MEDS: MULTIVITAMINS CHILDREN'S CHEWABLE TABLET PO SCH (08:28)
[2016-09-08] MEDS: ENOXAPARIN 40 MG/0.4 ML SYRINGE (J1650) SC SCH (08:28)
[2016-09-08] MEDS: FIDAXOMICIN 200 MG TAB (DIFICID) PO SCH ×2 (08:28→22:14)
--- NOTE | 2016-09-08 15:32 | IPNPDOC ---
Date Seen The patient was seen on 09/08/16. Progress Note Hospitalist Progress Note Subjective: Overall doing well. He states that his stool has now formed. Objective: Physical Exam: Vitals: Vital Sign - Last 24 Hours 09/07/16 09/07/16 09/07/16 09/07/16 15:52 18:06 20:52 22:00 Temp 98.6 Pulse 79 Resp 17 B/P 100/62 Pulse Ox 97 O2 Delivery Room Air 09/07/16 09/08/16 09/08/16 09/08/16 22:51 01:50 05:34 06:00 Temp 98.4 Pulse 69 Resp 18 18 B/P 94/68 Pulse Ox 97 O2 Delivery Room Air 09/08/16 09/08/16 09/08/16 09/08/16 08:27 10:00 10:05 13:41 Resp 18 18 18 16 09/08/16 14:23 Resp 14 General: Awake, alert, no acute distress HEENT: Normocephalic, atraumatic, extraocular movements intact CV: Regular Rate and rhythm, no murmurs rubs or gallops Lungs: Clear to auscultation bilaterally Abd: Soft, normal bowel sounds Extremities: No bilateral lower extremity edema Neuro: Alert and oriented 3, normal speech Psych: Normal Mood and affect Labs and Imaging: Laboratory Tests 09/08/16 06:41 Calcium Level 8.2 L, Red Blood Count 3.29 L, Mean Corpuscular Volume 92.6, Mean Corpuscular Hemoglobin 29.6, Mean Corpuscular Hemoglobin Concent 32.0, Red Cell Distribution Width 15.0 H Assessment and Plan: 51-year-old male with history of chronic abdominal pain and diarrhea secondary to gastric bypass surgery in 2012, history of esophageal stricture requiring scheduled dilation and G-tube dependence, severe protein calorie malnutrition and cachexia secondary to the above, chronic narcotic use, MDD in remission, prior history of C. difficile colitis who presented with increased abdominal pain and diarrhea and has been admitted with C. difficile colitis. 1. C. difficile colitis: Patient has been treated with oral dificid, and is improving. Unfortunately, the high cost of dificid was prohibitive for the patient to pay for this outpatient. He is completing his 10th day of oral dificid at this time, and we anticipate discharge home tomorrow. He will need follow-up with Dr. Benavides, who has seen him in consultation while in the hospital. Continue Bacid. 2. Chronic abdominal pain with history of gastric bypass: Continue the patient' s home narcotics. Continue home B12, multivitamin, Prilosec, Carafate,, Os-Madan, vitamin D. 3. History of esophageal stricture requiring scheduled dilation and G-tube dependence: Continue home tube feeds. The patient has been on IV fluids, which we will discontinue at this time. 4. History of MDD, in remission: Continue home nightly Remeron. DVT prophylaxis: Lovenox Dispo: anticipate home tomorrow, after completing course of oral Dificid, and if tolerating having his IV fluids turned off. VS, I&O, 24H, Fishbone Vital Signs/I&O Vital Signs Date Time Temp Pulse Resp B/P Pulse Ox O2 Delivery O2 Flow Rate FiO2 09/08/16 14:23 14 09/08/16 06:00 98.4 69 94/68 97 Room Air I&O- Last 24 Hours up to 6 AM 09/08/16 06:00 Intake Total 1200 ml Output Total 0 ml Balance 1200 ml Laboratory Data 24H LABS Laboratory Tests 2 09/08/16 06:41: Anion Gap 3L, Blood Urea Nitrogen 15, Creatinine 0.52L, Sodium Level 139, Potassium Level 4.6, Chloride Level 105, Carbon Dioxide Level 31, Calcium Level 8.2L, Glomerular Filtration Rate > 60.0 CBC/BMP Laboratory Tests 09/08/16 06:41 Calcium Level 8.2 L, Red Blood Count 3.29 L, Mean Corpuscular Volume 92.6, Mean Corpuscular Hemoglobin 29.6, Mean Corpuscular Hemoglobin Concent 32.0, Red Cell Distribution Width 15.0 H Microbiology Microbiology 09/04/16 Stool Occult Blood (NIESHA) - Final, Complete 08/30/16 Clostridium difficile (PCR) - Final, Complete JENAE PERKINS Sep 08, 2016 15:32
[2016-09-08 22:00] VITALS: BP 100/78
[2016-09-08] MEDS: MIRTAZAPINE 15 MG TAB PO SCH (22:13)
[2016-09-09] MEDS: MORPHINE 30 MG TAB **MSIR PO PRN ×2 (00:06→10:10)
[2016-09-09] MEDS: oxyCODONE 5MG TAB PO SCH ×3 (02:23→09:24)
[2016-09-09 06:00] VITALS: BP 100/62
[2016-09-09 06:52] LABS: MEAN CORPUSCULAR HEMOGLOBIN 29.5 pg (27.0-33.0); MEAN CORPUSCULAR VOLUME 92.2 fl (80.0-96.0); RED CELL DISTRIBUTION WIDTH 15.1 % (11.5-14.5)
[2016-09-09 07:10] LABS: ANION GAP 6 MEQ/L (8-16); BLOOD UREA NITROGEN 14 MG/DL (7-18); CALCIUM LEVEL 7.9 MG/DL (8.5-10.1); CARBON DIOXIDE LEVEL 30 MEQ/L (21-32); CHLORIDE LEVEL 104 MEQ/L (98-107); CREATININE FOR GFR 0.53 MG/DL (0.70-1.30); GLOMERULAR FILTRATION RATE > 60.0 (>56); GLUCOSE, FASTING 101 MG/DL (70-105); MAGNESIUM LEVEL 2.2 MG/DL (1.8-2.4); POTASSIUM SERUM 4.5 MEQ/L (3.5-5.1); SODIUM LEVEL 140 MEQ/L (136-145)
[2016-09-09] MEDS: FIDAXOMICIN 200 MG TAB (DIFICID) PO SCH (09:22)
[2016-09-09] MEDS: METOCLOPRAMIDE INJ 10MG/2ML VIAL (J2765) IV SCH (09:22)
[2016-09-09] MEDS: ENOXAPARIN 40 MG/0.4 ML SYRINGE (J1650) SC SCH (09:22)
[2016-09-09] MEDS: LACTOBACILLUS ACIDOPHILUS CAP (BACID) PO SCH (09:22)
[2016-09-09] MEDS: MULTIVITAMINS CHILDREN'S CHEWABLE TABLET PO SCH (09:23)
[2016-09-09] MEDS: OMEPRAZOLE 20 MG CAP PO SCH (09:23)
[2016-09-09] MEDS: CYANOCOBALAMIN 500 MCG TAB PO SCH (09:23)
[2016-09-09] MEDS: SUCRALFATE SUSP 1GM/10ML UD PO SCH (09:29)
[2016-09-09] MEDS: OYSTER SHELL CALCIUM 500 MG TAB PO SCH (09:29)
[2016-09-09] MEDS: VITAMIN D 1,000 INTERNATIONAL UNITS TABLET PO SCH (09:29)
--- NOTE | 2016-09-09 17:00 | DS.PDOC ---
Discharge Summary General Date of Admission 08/29/2016 Date of Discharge 09/09/2016 Discharge Summary DATE OF ADMISSION: 08/29/2016 DATE OF DISCHARGE: 09/09/2016 PRIMARY CARE PHYSICIAN: Dr. Laureano DISCHARGE DIAGNOS(E)S: C. difficile colitis HPI & HOSPITAL COURSE: 51-year-old male with history of chronic abdominal pain and diarrhea secondary to gastric bypass surgery in 2012, history of esophageal stricture requiring scheduled dilation and G-tube dependence, severe protein calorie malnutrition and cachexia secondary to the above, chronic narcotic use, MDD in remission, prior history of C. difficile colitis who presented with increased abdominal pain and diarrhea and has been admitted with C. difficile colitis. 1. C. difficile colitis: Patient has been treated with oral dificid, and is improving. Unfortunately, the high cost of dificid was prohibitive for the patient to pay for this outpatient. He has completed his 10th day of oral dificid at this time. He will need follow-up with Dr. Benavides, who has seen him in consultation while in the hospital. Continue Bacid. 2. Chronic abdominal pain with history of gastric bypass: Continue the patient' s home narcotics. Continue home B12, multivitamin, Prilosec, Carafate,, Os-Madan, vitamin D. 3. History of esophageal stricture requiring scheduled dilation and G-tube dependence: Continue home tube feeds. The patient has been on IV fluids, which we will discontinue at this time. 4. History of MDD, in remission: Continue home nightly Remeron. DVT prophylaxis: Lovenox PHYSICAL EXAMINATION ON DISCHARGE: VITAL SIGNS: Vital Signs Date Time Temp Pulse Resp B/P Pulse Ox O2 Delivery O2 Flow Rate FiO2 09/09/16 10:42 16 09/09/16 06:00 97.5 75 100/62 98 Room Air General: Awake, alert, no acute distress HEENT: Normocephalic, atraumatic, extraocular movements intact CV: Regular Rate and rhythm, no murmurs rubs or gallops Lungs: Clear to auscultation bilaterally Abd: Soft, normal bowel sounds Extremities: No bilateral lower extremity edema Neuro: Alert and oriented 3, normal speech Psych: Normal Mood and affect DISPOSITION: Home DISCHARGE INSTRUCTIONS: Follow-up with PCP as scheduled on discharge paperwork. Follow-up with Dr. Benavides as scheduled on discharge paperwork. If symptoms return, or if you experience worsening of your symptoms, please call your doctor or return to the emergency department. ITEMS THAT NEED OUTPATIENT FOLLOWUP: None Patient was seen and examined by me on the day of discharge, and I spent a total time of greater than 30 minutes on this discharge. Vital Signs/I&Os Vital Signs Date Time Temp Pulse Resp B/P Pulse Ox O2 Delivery O2 Flow Rate FiO2 09/09/16 10:42 16 09/09/16 06:00 97.5 75 100/62 98 Room Air I&O- Last 24 Hours up to 6 AM 09/09/16 06:00 Intake Total 960 ml Output Total 0 ml Balance 960 ml Laboratory Data Labs 24H Laboratory Tests 2 09/09/16 06:40: Anion Gap 6L, Blood Urea Nitrogen 14, Creatinine 0.53L, Sodium Level 140, Potassium Level 4.5, Chloride Level 104, Carbon Dioxide Level 30, Calcium Level 7.9L, Glomerular Filtration Rate > 60.0, Magnesium Level 2.2 CBC/BMP Laboratory Tests 09/09/16 06:40 Calcium Level 7.9 L, Red Blood Count 3.22 L, Mean Corpuscular Volume 92.2, Mean Corpuscular Hemoglobin 29.5, Mean Corpuscular Hemoglobin Concent 32.0, Red Cell Distribution Width 15.1 H Microbiology Microbiology 09/04/16 Stool Occult Blood (NIESHA) - Final, Complete 08/30/16 Clostridium difficile (PCR) - Final, Complete Discharge Medications Scheduled (Tab-A-Christian) 1 Tab Tab 1 TAB PO BID (Reported) (Oysco 500) 500 Mg Tab 500 MG PO BID (Reported) Cholecalciferol (Vitamin D-3) 2,000 Unit Tab 2,000 UNIT PO DAILY (Reported) Cyanocobalamin (Vitamin B-12) 500 Mcg Tab 500 MCG PO DAILY (Reported) Lactobacillus Acidophilus (Bacid) 1 Tab Tab 1 TAB PO BID (Reported) Mirtazapine (Mirtazapine) 45 Mg Tab 45 MG PO QHS (Reported) Multivitamins Chewable *SMC STOCKED* (Animal Shapes with C & FA *SMC STOCKED*) 1 Tab Chew 1 TAB PO DAILY (Reported) Sucralfate (Sucralfate) 1 Gm/10 Ml Mariia 10 ML PO QID (Reported) Scheduled PRN Oxycodone Hcl (Oxycodone HCl) 20 Mg Tab 20 MG PO Q4H PRN PRN PAIN (Reported) Allergies Coded Allergies: No Known Allergies (Verified , 11/28/02) JENAE PERKINS Sep 09, 2016 17:00
[2016-10-15] MEDS ORDERED: FERR1TAB8 PO (10:10)
[2017-03-18] MEDS ORDERED: K-TA1TAB PO (08:37)
[2017-03-18] MEDS ORDERED: VANC125C2 PO (08:41)
[2017-03-26] MEDS ORDERED: FLAG500T PO (09:00)
[2017-03-28] MEDS ORDERED: POTA20TA PO (13:36)
[2017-03-28] MEDS ORDERED: VANC125C2 PO (13:36)
[2017-03-28] MEDS ORDERED: METR1TAB66 PO (13:36)
== END 2016-09-09 11:59 | disposition home or self-care (01) | DRG 248 ==
LOC: M ED 16:04 → M ED INP 19:33 → M MSPAV 21:40 → OBSVTOIN 09-01 12:45
PROVIDERS: ADMIT Internal Medicine Nephrology; ATTEND Hospitalist
DX: A04.7 Enterocolitis due to Clostridium difficile (principal); E43 Unspecified severe protein-calorie malnutrition; F33.40 Major depressive disorder, recurrent, in remission, unspecified; Z79.899 Other long term (current) drug therapy; Z93.1 Gastrostomy status; Z98.84 Bariatric surgery status; F17.200 Nicotine dependence, unspecified, uncomplicated; E86.0 Dehydration; N20.0 Calculus of kidney; N40.0 Benign prostatic hyperplasia without lower urinary tract symptoms

== ENCOUNTER 2016-09-10 15:29 | Emergency (ER) | payer OTHER, MEDICARE ==
[~2016-09-10] VITALS: Ht 180.3 cm; Wt 59.0 kg
[~2016-09-10 15:29] MED LIST changes: +DIFI200T PO; +VANC250C2 PO
[2016-09-10] MEDS ORDERED: NS 1,000 ML IV SCH (16:12)
[2016-09-10 16:46] LABS: BASO % 0.3 % (0.0-1.0); EOS % 1.3 % (0.0-3.0); LARGE UNSTAINED CELL # 0.1 K/mm3 (0.0-0.4); LARGE UNSTAINED CELL % 3.7 % (0.0-4.0); LYMPH # 0.6 K/mm3 (1.5-4.5); LYMPH % 19.3 % (24.0-44.0); MEAN CORPUSCULAR HEMOGLOBIN 30.5 pg (27.0-33.0); MEAN CORPUSCULAR HGB CONC 33.5 g/dl (32.0-36.5); MEAN CORPUSCULAR VOLUME 91.2 fl (80.0-96.0); MONO # 0.2 K/mm3 (0.0-0.8); MONO % 7.1 % (0.0-5.0); NEUTROPHILS # 2.3 K/mm3 (1.8-7.7); NEUTROPHILS % 68.3 % (36.0-66.0); PLATELET COUNT, AUTOMATED 158 k/mm3 (150-450); RED CELL DISTRIBUTION WIDTH 15.1 % (11.5-14.5); WHITE BLOOD COUNT 3.3 K/mm3 (4.0-10.0)
[2016-09-10 17:14] LABS: ALBUMIN 2.5 GM/DL (3.2-5.2); ALBUMIN/GLOBULIN RATIO 0.64 (1.00-1.93); ALKALINE PHOSPHATASE 93 U/L (45-117); ALT/SGPT 13 U/L (12-78); ANION GAP 5 MEQ/L (8-16); AST/SGOT 12 U/L (15-37); BILIRUBIN,DIRECT 0.1 MG/DL (0.0-0.2); BILIRUBIN,TOTAL 0.3 MG/DL (0.2-1.0); BLOOD UREA NITROGEN 12 MG/DL (7-18); CALCIUM LEVEL 8.1 MG/DL (8.5-10.1); CARBON DIOXIDE LEVEL 29 MEQ/L (21-32); CHLORIDE LEVEL 105 MEQ/L (98-107); CREATININE FOR GFR 0.52 MG/DL (0.70-1.30); GLOMERULAR FILTRATION RATE > 60.0 (>56); GLUCOSE, FASTING 87 MG/DL (70-105); POTASSIUM SERUM 3.9 MEQ/L (3.5-5.1); SODIUM LEVEL 139 MEQ/L (136-145); TOTAL PROTEIN 6.4 GM/DL (6.4-8.2)
[2016-09-10] MEDS ORDERED: oxyCODONE 5MG TAB PO ONE (17:45)
[2016-09-10 19:03] VITALS: BP 104/71
[2016-10-15] MEDS ORDERED: FERR1TAB8 PO (10:10)
[2017-03-18] MEDS ORDERED: K-TA1TAB PO (08:37)
[2017-03-18] MEDS ORDERED: VANC125C2 PO (08:41)
[2017-03-26] MEDS ORDERED: FLAG500T PO (09:00)
[2017-03-28] MEDS ORDERED: POTA20TA PO (13:36)
[2017-03-28] MEDS ORDERED: VANC125C2 PO (13:36)
[2017-03-28] MEDS ORDERED: METR1TAB66 PO (13:36)
== END 2016-09-10 19:09 | disposition home or self-care (01) ==
LOC: M ED 16:18
DX: R19.7 Diarrhea, unspecified (principal); Z87.19 Personal history of other diseases of the digestive system; E43 Unspecified severe protein-calorie malnutrition; G89.29 Other chronic pain; R10.9 Unspecified abdominal pain; Z98.84 Bariatric surgery status; Z93.1 Gastrostomy status; F17.200 Nicotine dependence, unspecified, uncomplicated; Z79.899 Other long term (current) drug therapy

== ENCOUNTER 2016-10-12 05:30 | Inpatient (IN) | payer OTHER, MEDICARE ==
[~2016-10-12] VITALS: Ht 180.3 cm; Wt 73.1 kg
[~2016-10-12 05:30] MED LIST changes: +AVEL1TAB PO; -AVEL1TAB3 PO; -BACITAB PO; +BACITAB3 PO; +CALC600T21 PO; -CALC600T60 PO; +MS C15TA2 PO; -MS C15TA8 PO; -OXYC-405 PO; +OXYC1TAB57 PO; +OXYC40TA13 PO; -OXYC40TA29 PO; -SENN1TAB10 PO; +SENN8.6T10 PO
[2016-10-12] MEDS ORDERED: KETOROLAC 30 MG/ML VIAL (J1885) IV ONE (06:15)
[2016-10-12] MEDS ORDERED: ONDANSETRON 4MG/2ML VIAL (J2405) IV ONE (06:15)
[2016-10-12] MEDS ORDERED: NS 1,000 ML IV ONE ×2 (06:15→09:00)
[2016-10-12] MEDS ORDERED: PANTOPRAZOLE 40MG INJ (PROTONIX) (C9113) IV ONE (06:15)
[2016-10-12] MEDS ORDERED: DICYCLOMINE 10 MG CAP PO ONE (06:15)
[2016-10-12 06:32] LABS: BASO % 0.6 % (0.0-1.0); EOS # 0.1 K/mm3 (0.0-0.50); EOS % 3.5 % (0.0-3.0); LARGE UNSTAINED CELL # 0.1 K/mm3 (0.0-0.4); LARGE UNSTAINED CELL % 2.9 % (0.0-4.0); LYMPH # 0.9 K/mm3 (1.5-4.5); LYMPH % 24.1 % (24.0-44.0); MEAN CORPUSCULAR HEMOGLOBIN 30.2 pg (27.0-33.0); MEAN CORPUSCULAR HGB CONC 31.4 g/dl (32.0-36.5); MEAN CORPUSCULAR VOLUME 96.2 fl (80.0-96.0); MONO # 0.1 K/mm3 (0.0-0.8); MONO % 3.9 % (0.0-5.0); NEUTROPHILS # 2.3 K/mm3 (1.8-7.7); NEUTROPHILS % 65.1 % (36.0-66.0); PLATELET COUNT, AUTOMATED 201 k/mm3 (150-450); RED CELL DISTRIBUTION WIDTH 15.3 % (11.5-14.5); WHITE BLOOD COUNT 3.5 K/mm3 (4.0-10.0)
[2016-10-12 06:40] LABS: ALBUMIN/GLOBULIN RATIO 0.73 (1.00-1.93); ALKALINE PHOSPHATASE 78 U/L (45-117); ALT/SGPT 15 U/L (12-78); ANION GAP 5 MEQ/L (8-16); AST/SGOT 13 U/L (15-37); BILIRUBIN,DIRECT 0.1 MG/DL (0.0-0.2); BILIRUBIN,TOTAL 0.3 MG/DL (0.2-1.0); BLOOD UREA NITROGEN 12 MG/DL (7-18); CALCIUM LEVEL 8.2 MG/DL (8.5-10.1); CARBON DIOXIDE LEVEL 30 MEQ/L (21-32); CHLORIDE LEVEL 104 MEQ/L (98-107); GLOMERULAR FILTRATION RATE > 60.0 (>56); GLUCOSE, FASTING 90 MG/DL (70-105); POTASSIUM SERUM 3.9 MEQ/L (3.5-5.1); SODIUM LEVEL 139 MEQ/L (136-145); TOTAL PROTEIN 7.1 GM/DL (6.4-8.2)
[2016-10-12] MEDS: MORPHINE 4 MG/ML 1ML SYRINGE IV PRN ×3 (07:30→20:26)
[2016-10-12] MEDS ORDERED: GASTROGRAFIN SOLUTION 30ML PO ONE (07:45)
[2016-10-12] MEDS ORDERED: GASTROGRAFIN SOLUTION 30ML (Q9963) PO ONE (08:15)
[2016-10-12] MEDS ORDERED: ISOVUE-370 76% 100ML VIAL (Q9967) As Ordered ONE (09:21)
--- NOTE | 2016-10-12 10:03 | REP ---
Clinical: Diffuse abdominal pain. Technique: Axial contrast enhanced images from the lung bases to the pubic symphysis using oral and 100 ml Isovue 370 intravenous contrast material with coronal and sagittal re-formations. Comparison: 08/29/2016. Findings: Lung bases clear. Visualized heart and pericardium normal. Liver, spleen, pancreas, and bilateral adrenal glands are normal. Kidneys demonstrate nonobstructing 8 mm right nephrolith and bilateral cysts measuring up to 2.5 cm upper pole right kidney and 1.3 cm lower pole left kidney. No evidence for hydronephrosis. There is evidence of prior gastric surgery and gastrostomy tube in stable position. There is no evidence for bowel obstruction or perforation. Scattered mural thickening to multiple loops of small bowel along with small amount of free fluid in the pelvis may reflect enteritis and should be correlated clinically. Pelvis demonstrates partially collapsed bladder and mildly prominent prostate gland. No free air. No obvious adenopathy. Abdominal aorta without aneurysm or dissection. Musculoskeletal structures demonstrate degenerative changes and stable posterior fusion/laminectomy at L5/S1. Impression: 1. Possible enteritis with scattered small bowel wall thickening and small amount of free fluid in the pelvis. No associated free air or bowel obstruction. 2. Stable 8 mm nonobstructing right renal calculus and solitary bilateral renal cysts. 3. Chronic changes as described above. No further acute intra-abdominal or pelvic pathology appreciated. Signed by Esdras Cruz MD 10/12/2016 09:54 A
[2016-10-12] MEDS ORDERED: LORazepam 2 MG/ML VIAL (J2060) IV STA (10:56)
[2016-10-12] MEDS ORDERED: HYDROmorphone 2 MG TAB PO ONE (11:45)
[2016-10-12] MEDS: SUCRALFATE SUSP 1GM/10ML UD PO SCH ×3 (13:00→20:12)
[2016-10-12] MEDS ORDERED: VANC125C2 PO (13:15)
[2016-10-12] MEDS: oxyCODONE 5MG TAB PO PRN ×3 (13:58→22:12)
[2016-10-12 14:35] VITALS: BP 113/71
[2016-10-12] MEDS: ONDANSETRON 4MG/2ML VIAL (J2405) IV PRN ×2 (15:27→22:41)
[2016-10-12] MEDS: VITAMIN D 1,000 INTERNATIONAL UNITS TABLET PO SCH (17:08)
[2016-10-12] MEDS: D5W/0.9% SODIUM CHLORIDE 1,000 ML IV SCH (17:10)
[2016-10-12] MEDS: CYANOCOBALAMIN 500 MCG TAB PO SCH (17:11)
[2016-10-12] MEDS: MULTIVITAMINS CHILDREN'S CHEWABLE TABLET PO SCH (17:11)
[2016-10-12] MEDS: VANCOMYCIN ORAL SOL 250MG/5ML ORAL SYRINGE PO SCH (17:12)
--- NOTE | 2016-10-12 20:05 | ECGEPIP ---
Stationary ECG Study [facility] - ED Test Date: 2016-10-12 Pat Name: GRAHAM COLEMAN Department: Room: - Gender: M Manager Civil: varun : 1965 Requested By: BERE APARICIO Order Number: [id number] Reading MD: Kathryn Berg Measurements Intervals [place] Rate: 59 P: 67 OH: 174 QRS: 3 QRSD: 99 T: 53 QT: 426 QTc: 422 Interpretive Statements SINUS BRADYCARDIA LOW VOLTAGE LIMB SIMILAR 07/23/16 Electronically Signed On 10-12-2016 20:05:24 EDT by Kathryn Berg
[2016-10-12] MEDS: LACTOBACILLUS ACIDOPHILUS CAP (BACID) PO SCH (20:12)
[2016-10-12] MEDS: OYSTER SHELL CALCIUM 500 MG TAB PO SCH (20:12)
--- NOTE | 2016-10-12 21:09 | HPE ---
DATE OF ADMISSION: 10/12/2016 PRIMARY CARE PROVIDER: Dr. Cedric Marrero CHIEF COMPLAINT: Abdominal pain and diarrhea, worsened over the past 3 days. PAST MEDICAL HISTORY: 1. Recurrent Clostridium (C) difficile colitis going on from July 2016, this seems to be the fourth attack. 2. Chronic abdominal pain and intermittent diarrhea secondary to gastric bypass surgery for morbid obesity in 2012. 3. History of esophageal stricture requiring scheduled dilation by Dr. Delarosa in [place]. 4. Chronic narcotic dependence. 5. Kidney stones. 6. Gastrostomy tube in position. 7. Severe protein calorie malnutrition. 8. Cachexia. 9. Major depressive disorder, in remission. 10. Avoidant and restrictive food intake disorder. 11. Chronic back pain due to postlaminectomy pain syndrome. HISTORY OF PRESENT ILLNESS: This is a 51-year-old male with a history of gastric bypass surgery done in 2012 but then had multiple complications, chronic abdominal pain, esophageal stricture, narcotic dependence, recurrent episodes of diarrhea going on for the past three to four years that started a few months after his gastric bypass surgery and a back surgery a few months later. The patient has intermittent episodes of severe abdominal pain with worsening diarrhea, unable to tolerate any oral feeds and becoming dehydrated with electrolyte imbalance and requiring frequent hospitalizations. The patient has been diagnosed with C difficile colitis in July 2016 and has had recurrent attacks of C difficile colitis, most recently the patient was in our hospital in August and treated for recurrent C difficile with Dificid and discharged home on 09/09/2016. As per the patient, he went to see his compliance examiner in [place], Dr. Delarosa, one week later. There he had complained of diarrhea and was found to again be positive for C difficile and so was admitted in . He stayed in for about one week and he was started on vancomycin orally and discharged from [facility] two weeks ago with a tapering course of vancomycin and over the past 3 to 4 days his diarrhea has again worsened with worsening abdominal pain so he came to our emergency room for evaluation today. Here in the emergency department, the patient has not had any bowel movements, so we have not been able to test him for C difficile yet. He did appear mildly dehydrated with elevation in his hemoglobin compared to his baseline. The patient was given IV fluids and abdominal pain was controlled initially with morphine and Dilaudid. However, the patient is very weak and cachectic with dehydration so he is being admitted to the hospitalist service for management. PAST SURGICAL HISTORY: 1. Deysi-en-Y gastrojejunostomy for morbid obesity in May 2012 when he had weighed 389 pounds. 2. Appendectomy. 3. Cholecystectomy. 4. Back surgery in July 2013. 5. New percutaneous endoscopic gastrostomy (PEG) tube placement in May 2016. 6. Right arm tendon repair. 7. Right hand surgery. 8. Upper GI endoscopy done by Dr. Minaya in 2013 and found to have an ulceration at the site of anastomosis with scar and exuded erosions and friable mucosa. 9. Lumbar epidural steroid [place] [address] Griffin. SOCIAL HISTORY: The patient smokes about a half of a pack per day, previously used to smoke pot. Denies any alcohol abuse. Lives with his and son in an apartment in [place]. ALLERGIES: No known drug allergies. REVIEW OF SYSTEMS: The patient denies any fever or chills. Denies any vomiting. Has chronic abdominal pain, which is now worse. Has been having diarrhea four to five times a day over the past three to four days. Denies any shortness of breath. Denies any chest pain at present. Denies any cough or phlegm. PHYSICAL EXAMINATION: VITAL SIGNS: Blood pressure 104/75, pulse 50, respiratory rate 18, pulse oximetry 99% on room air. GENERAL: The patient is awake, alert, and oriented times three. Lying down in bed in no acute distress. HEENT: Normocephalic, atraumatic. CHEST: Clear to auscultation. CARDIOVASCULAR: S1, S2 regular. Bradycardic. No rub, murmur, or gallop. ABDOMEN: Concave. The patient has mild generalized tenderness. Bowel sounds present. Has a gastrostomy tube in position. EXTREMITIES: No edema. LABORATORY DATA: WBC 3.5, hemoglobin 11.5, platelets 201. Sodium 139, potassium 3.9, chloride 104, bicarbonate 13, BUN 12, creatinine 0.6, glucose 90, lactate 1.7, calcium 8.2. Liver function tests are normal. Cardiac enzymes, first set, are negative. Albumin is 3.0, lipase is 86. CT of the abdomen and pelvis shows possible enteritis with scattered small bowel wall thickening and small amount of free fluid in the pelvis. No free air or bowel obstruction. There is a stable 18 mm nonobstructive right renal calculus and bilateral renal cysts. Evidence of prior gastric surgery and gastrostomy tube in stable position. There is stable fusion and laminectomy of L5-S1. HOME MEDICATIONS: - cholecalciferol 2000 units daily - 500 mcg by mouth daily - lactobacillus one tablet by mouth twice a day - multivitamin one tablet by mouth daily - oxycodone 20 mg by mouth every four hours as needed for pain - Os-Madan 500 mg one tablet by mouth twice a day - sucralfate 10 mL four times a day - one tablet by mouth twice a day - vancomycin 125 mg by mouth four times a day started on 10/10/2016 ASSESSMENT AND PLAN: This is a 51-year-old male admitted for diarrhea and dehydration. 1. For diarrhea and dehydration, we will continue the patient on IV fluids. We will continue him on percutaneous endoscopic gastrostomy tube feeding and allow a regular diet. We will check stool for C difficile, as there is a high possibility of recurrent C difficile. 2. Recurrent C difficile. The patient is currently on vancomycin oral treatment tapering course that was started at . 3. Severe protein calorie malnutrition and cachexia. Weight is stable at this point. This is a complication of gastric bypass surgery for morbid obesity. 4. Chronic narcotic dependence for back pain and chronic abdominal pain. We will continue with oxycodone as needed and morphine as needed. 5. Post laminectomy syndrome, which causes chronic back pain. On oxycodone. 6. History of major depressive disorder, in remission. 7. Diet. We will continue with tube feedings, Jevity 190 mL per 24 hours. 8. Deep vein thrombosis (DVT) prophylaxis has been ordered. 9. Gastrointestinal prophylaxis has been ordered. 10. History of morbid obesity. Status post gastric bypass in 2012, stable. 11. History of esophageal stricture. Undergoes dilation with Dr. Delarosa in [place].
[2016-10-12 22:00] VITALS: BP 99/71
[2016-10-13] MEDS: VANCOMYCIN ORAL SOL 250MG/5ML ORAL SYRINGE PO SCH ×3 (00:26→12:08)
[2016-10-13] MEDS: MORPHINE 4 MG/ML 1ML SYRINGE IV PRN ×6 (00:29→22:18)
[2016-10-13] MEDS: oxyCODONE 5MG TAB PO PRN ×5 (03:35→20:12)
[2016-10-13] MEDS: D5W/0.9% SODIUM CHLORIDE 1,000 ML IV SCH ×2 (05:13→17:30)
[2016-10-13 05:47] LABS: BASO % 0.5 % (0.0-1.0); EOS # 0.1 K/mm3 (0.0-0.50); EOS % 2.9 % (0.0-3.0); LARGE UNSTAINED CELL # 0.1 K/mm3 (0.0-0.4); LARGE UNSTAINED CELL % 2.1 % (0.0-4.0); LYMPH # 1.1 K/mm3 (1.5-4.5); LYMPH % 27.8 % (24.0-44.0); MEAN CORPUSCULAR HEMOGLOBIN 30.1 pg (27.0-33.0); MEAN CORPUSCULAR HGB CONC 32.1 g/dl (32.0-36.5); MEAN CORPUSCULAR VOLUME 93.9 fl (80.0-96.0); MONO # 0.3 K/mm3 (0.0-0.8); NEUTROPHILS # 2.2 K/mm3 (1.8-7.7); NEUTROPHILS % 59.7 % (36.0-66.0); PLATELET COUNT, AUTOMATED 167 k/mm3 (150-450); RED CELL DISTRIBUTION WIDTH 15.3 % (11.5-14.5); WHITE BLOOD COUNT 3.7 K/mm3 (4.0-10.0)
[2016-10-13 06:00] VITALS: BP 94/61
[2016-10-13 06:07] LABS: ANION GAP 5 MEQ/L (8-16); BLOOD UREA NITROGEN 10 MG/DL (7-18); CALCIUM LEVEL 7.9 MG/DL (8.5-10.1); CARBON DIOXIDE LEVEL 28 MEQ/L (21-32); CHLORIDE LEVEL 107 MEQ/L (98-107); CREATININE FOR GFR 0.59 MG/DL (0.70-1.30); FERRITIN 93 NG/ML (26-388); GLOMERULAR FILTRATION RATE > 60.0 (>56); GLUCOSE, FASTING 81 MG/DL (70-105); PERCENT SATURATION 12.7 % (19.7-37.4); POTASSIUM SERUM 4.1 MEQ/L (3.5-5.1); SODIUM LEVEL 140 MEQ/L (136-145); TOTAL IRON BINDING CAPACITY 267 UG/DL (250-450)
[2016-10-13] MEDS: OYSTER SHELL CALCIUM 500 MG TAB PO SCH ×2 (08:04→20:11)
[2016-10-13] MEDS: SUCRALFATE SUSP 1GM/10ML UD PO SCH ×4 (08:04→20:11)
[2016-10-13] MEDS: LACTOBACILLUS ACIDOPHILUS CAP (BACID) PO SCH ×2 (08:04→20:11)
[2016-10-13] MEDS: MULTIVITAMINS CHILDREN'S CHEWABLE TABLET PO SCH (08:04)
[2016-10-13] MEDS: VITAMIN D 1,000 INTERNATIONAL UNITS TABLET PO SCH (08:04)
[2016-10-13] MEDS: ENOXAPARIN 40 MG/0.4 ML SYRINGE (J1650) SC SCH (08:04)
[2016-10-13] MEDS: CYANOCOBALAMIN 500 MCG TAB PO SCH (08:04)
[2016-10-13 10:26] LABS: VITAMIN B12 LEVEL 841 PG/ML (247-911)
[2016-10-13 10:27] LABS: FOLATE 23.6 NG/ML (>5.4)
[2016-10-13] MEDS: ONDANSETRON 4MG/2ML VIAL (J2405) IV PRN (13:35)
[2016-10-13 14:00] VITALS: BP 96/63
--- NOTE | 2016-10-13 16:01 | IPN ---
DATE: 10/13/2016 SUBJECTIVE: Mr. Stokes is a 51-year-old male who was seen and examined at the bedside. Patient expressed that he had about four bowel movements since last night and had diarrhea, however no hematochezia. Patient denied chest pain, palpitations, racing or skipping heart beat. Patient also denies lightheadedness or dizziness. Patient also denies shortness of breath. OBJECTIVE: VITAL SIGNS: Temperature 98.9, pulse 70, respiratory rate 18, blood pressure 94/61, pulse oximetry 96%. GENERAL APPEARANCE: Patient was lying in bed, in no acute distress. Patient was awake, alert, and oriented to time, place, and person. HEENT: Normocephalic, atraumatic. Pupils equal, round, and reactive to light. Oral mucous is moist. NECK: Soft, supple. No lymphadenopathy. No thyromegaly. No jugular venous distention (JVD). HEART: Regular rate and rhythm, normal S1, S2. ABDOMEN: Soft, nontender. Positive bowel sounds in all quadrants. EXTREMITIES: No lower extremity edema. +2 pulses in both lower extremities. Patient has normal range of motion in both upper and lower extremities. LABORATORY DATA: White blood cells 3.7, red blood cells 3.49, hemoglobin 10.5, hematocrit 30.8, MCV 93.9, MCH 30.1, MCHC 32.1, RDW 15.2, platelet count 162, neutrophil percentage 59.7, lymphocyte percentage 27.8, monocyte percentage 7, eosinophil percentage 2.9, basophil percentage 0.5, leukocyte percentage 2.1. Sodium 140, potassium 4.1, chloride 107, carbon dioxide 28, anion gap 7, BUN 10, creatinine 0.59, glomerular filtration rate more than 60, fasting glucose 81, calcium 7.9, iron 34, TIBC 267, transferrin percentage 12.7, ferritin 93, vitamin B12 841, 25-OH vitamin D total 25.9, folate 23.6. Blood cultures are pending at this time. ASSESSMENT AND PLAN: 1. Diarrhea. At this time we will continue patient on IV fluids. Patient also is on regular diet, however patient has percutaneous endoscopic gastrostomy (PEG) tube. However, Jevity has not been given since patient is tolerating by mouth. I have ordered a gastrointestinal (GI) panel, result is pending at this time. Also, patient had the stool checked for Clostridium (C) difficile and result is pending at this time. Patient is on Bacid. 2. Recurrent Clostridium (C) difficile. At this time patient is on oral vancomycin. We have consulted Dr. Benavides, appreciate Dr. Benavides's recommendation. Patient was started on vancomycin oral therapy when he was at [facility]. 3. Severe protein malnutrition and cachexia. At this time patient is stable. Patient has history of gastric bypass surgery due to morbid obesity. 4. Chronic narcotic dependence for back pain and chronic abdominal pain. At this point patient is on oxycodone as needed as well as morphine 4 mg IV every 4 hours as needed for severe pain. However, patient is stable at this time. 5. Postlaminectomy syndrome. This is possibly contributing to patient's chronic pain. At this time patient is on oxycodone and morphine. 6. History of major depressive disorder. Stable at this time. 7. Diet. Patient has a feeding tube and uses Jevity, however since patient's admission, patient has been able to tolerate by mouth and patient has not received tube feedings. 8. Deep venous thrombosis (DVT) prophylaxis. Patient is on thromboembolism deterrents (TEDs) and sequential compression device. Patient is also on Lovenox 40 mg subcutaneously daily. 9. Gastrointestinal (GI) prophylaxis. Will continue patient on Carafate and Protonix. 10. History of morbid obesity. Patient is status post gastric bypass which was done in 2012. Patient is stable. 11. History of esophageal stricture. Patient is followed by Dr. Delarosa who has performed dilation in [place]. Patient is stable at this time. Patient is able to tolerate by mouth at this time. 12. Vitamin D deficiency. Patient is on 2000 units by mouth daily of vitamin D. My preceptor for this patient encounter was Dr. Lamont Edge. The preceptor was physically present in the building during the encounter and was fully available. As needed, all aspects of the patient interview, examination, medical decision making process, and medical care plan development were reviewed and approved by the preceptor. The preceptor is aware and concurs with the plan as stated in the body of this note and will attest to such by his cosignature.
[2016-10-13 22:00] VITALS: BP 102/70
[2016-10-14] MEDS: oxyCODONE 5MG TAB PO PRN ×6 (00:46→22:48)
[2016-10-14] MEDS: ONDANSETRON 4MG/2ML VIAL (J2405) IV PRN ×3 (00:50→20:35)
[2016-10-14] MEDS: MORPHINE 4 MG/ML 1ML SYRINGE IV PRN ×5 (02:54→20:31)
[2016-10-14 06:00] VITALS: BP 99/67
[2016-10-14] MEDS: D5W/0.9% SODIUM CHLORIDE 1,000 ML IV SCH ×2 (07:02→20:32)
[2016-10-14 07:06] LABS: BASO % 0.4 % (0.0-1.0); EOS # 0.2 K/mm3 (0.0-0.50); EOS % 4.3 % (0.0-3.0); LARGE UNSTAINED CELL # 0.1 K/mm3 (0.0-0.4); LARGE UNSTAINED CELL % 1.5 % (0.0-4.0); LYMPH % 28.6 % (24.0-44.0); MEAN CORPUSCULAR HEMOGLOBIN 30.5 pg (27.0-33.0); MEAN CORPUSCULAR HGB CONC 32.4 g/dl (32.0-36.5); MEAN CORPUSCULAR VOLUME 94.3 fl (80.0-96.0); MONO # 0.2 K/mm3 (0.0-0.8); MONO % 6.5 % (0.0-5.0); NEUTROPHILS % 58.7 % (36.0-66.0); PLATELET COUNT, AUTOMATED 166 k/mm3 (150-450); RED CELL DISTRIBUTION WIDTH 15.3 % (11.5-14.5); WHITE BLOOD COUNT 3.4 K/mm3 (4.0-10.0)
[2016-10-14 07:09] LABS: ANION GAP 6 MEQ/L (8-16); BLOOD UREA NITROGEN 6 MG/DL (7-18); CALCIUM LEVEL 7.6 MG/DL (8.5-10.1); CARBON DIOXIDE LEVEL 27 MEQ/L (21-32); CHLORIDE LEVEL 106 MEQ/L (98-107); CREATININE FOR GFR 0.58 MG/DL (0.70-1.30); GLOMERULAR FILTRATION RATE > 60.0 (>56); GLUCOSE, FASTING 86 MG/DL (70-105); SODIUM LEVEL 139 MEQ/L (136-145)
--- NOTE | 2016-10-14 07:56 | CR ---
DATE OF CONSULTATION: 10/13/2016 Asked to consult by hospitalist for evaluation of recurrent Clostridium difficile colitis. HISTORY OF PRESENT ILLNESS: Mr. Stokes is known to me from previous admission. He was hospitalized from 09/01 and discharged on 09/09 with recurrent Clostridium difficile colitis. The patient had a history of Clostridium difficile for at least three or four different occasion. We have positive stool for Clostridium difficile on 08/01 and 08/30 / and 09/10 cdiff was negative. The patient during the hospitalization was treated with a fidaxomicin 200 mg by mouth twice daily but could not afford it on discharge and therefore he was treated with oral vancomycin on discharge. He states that after discharge on the , he was admitted in [place] by Dr. Delarosa who is his gastric bypass surgeon for a couple weeks because of persistent Clostridium difficile from 09/24-10/01. Stool was positive for Cdiff on t [facility] He had been on vancomycin four times a day up until his admission to this hospital that was supposed to be tapered over [address] Trent TANG. He states that he came for admission to the emergency room with worsening abdominal pain and diarrhea over the past 3 days. He denied having any fever or chills. He has been at [facility] for about 1 week and was discharged 2 weeks prior with a tapering dose of vancomycin. In the past 24 hours, the patient has only one bowel movement. He does not seem to be in any distress. He was mildly dehydrated and started on IV fluids. The patient was complaining of abdominal pain requiring morphine and antibiotic. PAST MEDICAL HISTORY: Significant for: Recurrent Clostridium difficile with positive stools on 08/01 and 08/30 and negative on 09/10. Chronic abdominal pain with intermittent diarrhea secondary to gastric bypass. History of morbid obesity in 2012. Esophageal stricture required dilatation by Dr. Delarosa. Chronic narcotic dependence. Kidney stone. Gastrostomy tube for severe protein calorie malnutrition. Cachexia. Major depression. Recurrent chronic back pain. PAST SURGICAL HISTORY: Post laminectomy. Deysi-en-[id number]. Gastrojejunostomy October 2012, his initially was 389. Appendectomy. Cholecystectomy. Back surgery in 2013. Percutaneous endoscopic gastrostomy tube May 2016. Right arm tendon repair and hand surgery. Upper GI done by Dr. Minaya done in 2013. Steroid injections in the past. SOCIAL HISTORY: Smokes about half a pack a day. He used to smoke pot. Denies alcohol use. Lives with his and son in [place]. ALLERGIES: No known drug allergies. MEDICATIONS: - Lovenox 40 mg subcutaneous daily - probiotic one tablet by mouth daily - OsCal 500 mg by mouth twice daily - morphine 4 mg IV every 4 hours - Carafate 1 gram by mouth four times daily - Zofran as needed - vitamin D 2000 units daily - vitamin B12 500 mcg daily - multivitamin one tablet daily LABORATORY DATA: White count was 3.7, hemoglobin 10.5, hematocrit 32.8, platelets 167. Sodium 140, potassium 4.1, chloride 107, bicarb 28, BUN 10, creatinine 0.6 , glucose 81, calcium 7.9, iron 34, TIBC 267, iron saturation 12%, Ferritin 93, vitamin B12 841, vitamin D 25.9, folate 23.6. Stool for Clostridium difficile was negative on 09/10. Blood cultures two were negative on 09/12. On physical exam, temperature is 98.9, respirations 18, pulse 17, blood pressure 94/61, O2 sat 96-100% on room air. Heart: Normal S1, S2. No murmurs. Lungs are diminished air entry but clear. No wheezes, rales or rhonchi. Abdomen is soft, nontender with a G tube surrounding contact dermatitis from the tape around the G tube. Back: No CVA tenderness. Extremities: No edema. Emaciated chronically sick looking man in no acute distress. Oropharynx is clear with no thrush. No lesions. IMPRESSION: This is a 51-year-old gentleman who was admitted with recurrent abdominal pain and what he describes as diarrhea but since admission in the past 24 hours, he has had only one bowel movement. His CT of the abdomen shows possible enteritis with scattered small bowel wall thickening and small amount of free fluid. No associated free air or bowel obstruction. No evidence of colitis. He has a stable 8 mm nonobstructing right renal calculus and small bilateral renal cysts. Chronic changes. IMPRESSION: 51-year-old gentleman with a history of recurrent Clostridium difficile colitis most currently treated by us on 09/01 to 09/09 with oral fidaxomicin which he received from 08/30 to 09/09 a total of 10 days. The patient was discharged home started on probiotics one tablet by mouth twice daily as he had finished his course of Dificid 10 days in the hospital. He stated that he was readmitted to [facility] for recurrent Clostridium difficile and we will obtain those records. At this time, he has had no bowel movement in 24 hours but one thus does not seem to be recurrence of Clostridium difficile. PLAN: Obtain records from [facility] to document if the patient had recurrence in spite of treatment with 10 days of fidaxomicin, then he should be a candidate for stool transplantation that could be given to him through his G tube after discussion with Dr. Delarosa, his gastric bypass surgeon. If the stool for Clostridium difficile was negative and he does not have any recurrent diarrhea at this hospitalization, then I do not think he needs to have a stool transplantation and should continue the tapering schedule from [place]. Send stool for Clostridium difficile and obtain his records from [place] and will discuss the case with his surgeon Dr. Delarosa. He had been previously seen by Dr. Minaya who has done an endoscopy on him and he should be consulted on the case if we need a stool transplantation. MINDA
[2016-10-14] MEDS: MULTIVITAMINS CHILDREN'S CHEWABLE TABLET PO SCH (09:24)
[2016-10-14] MEDS: LACTOBACILLUS ACIDOPHILUS CAP (BACID) PO SCH ×2 (09:24→20:31)
[2016-10-14] MEDS: OYSTER SHELL CALCIUM 500 MG TAB PO SCH ×2 (09:24→20:31)
[2016-10-14] MEDS: CYANOCOBALAMIN 500 MCG TAB PO SCH (09:25)
[2016-10-14] MEDS: VITAMIN D 1,000 INTERNATIONAL UNITS TABLET PO SCH (09:26)
[2016-10-14] MEDS: FERROUS SULFATE 325MG TAB PO SCH (09:26)
[2016-10-14] MEDS: SUCRALFATE SUSP 1GM/10ML UD PO SCH ×4 (09:27→20:31)
[2016-10-14] MEDS: ENOXAPARIN 40 MG/0.4 ML SYRINGE (J1650) SC SCH (09:28)
[2016-10-14 14:00] VITALS: BP 100/69
--- NOTE | 2016-10-14 14:39 | IPN ---
DATE: 10/14/2016 SUBJECTIVE: Mr. Stokes is a 51-year-old male who was seen and examined at the bedside. Patient denies chest pain, orthopnea, or paroxysmal nocturnal dyspnea (PND). Patient also denies nausea or vomiting. However, patient has about four episodes of bowel movement since last night. . OBJECTIVE: VITAL SIGNS: Temperature 98.6, pulse 53, respiratory rate 17, blood pressure 99/66, pulse oximetry 100% on room air. Total intake from yesterday 2730, total output 625. GENERAL APPEARANCE: Patient was lying in bed, in no acute distress. Patient was awake, alert, and oriented to time, place, and person. HEENT: Normocephalic, atraumatic. Pupils are equal and reactive to light. Oral mucous is moist. NECK: Soft, supple. No lymphadenopathy. No thyromegaly. No jugular venous distention (JVD). HEART: Regular rate and rhythm, normal S1, S2. LUNGS: Clear breath sounds bilaterally with good air movement. Patient has no wheezing, rales, or rhonchi. ABDOMEN: Soft, nontender. Positive bowel sounds in all quadrants. Patient has a percutaneous endoscopic gastrostomy (PEG) tube. However, no erythema, swelling, or drainage around the site of the PEG tube. EXTREMITIES: +2 pulses in both lower extremities. No lower extremity edema. ASSESSMENT AND PLAN: 1. Diarrhea. Dr. Benavides has been consulted who has seen the patient yesterday. Based on Dr. Benavides's notes, the medical records from [place] have been requested, and if the patient has recurrence of diarrhea in spite of treatment within 10 days of fidaxomicin, the patient will be a candidate for transplant which would be performed through the gastrostomy (G) tube. However, this case will be discussed with Dr. Delarosa, his gastric bypass surgeon. However, if the Clostridium (C) difficile comes back negative and patient does not have any recurrence of the diarrhea in this hospitalization, the stool transplant is not recommended. The result for C. difficile is pending. Also, Dr. Benavides recommended consulting Dr. Minaya if stool transplant is required. Today, patient expressed that he feels that his stools are more formed. We will continue to monitor the patient for any abnormal symptoms. 2. Anemia. I have done iron study which indicated the possibility of iron deficiency. I have started the patient on ferrous sulfate. 3. Recurrent Clostridium difficile. Patient was on vancomycin. However, we have stopped this medication. Patient was started on calcium carbonate 500 mg by mouth twice a day. 4. Severe protein malnutrition and cachexia. Patient has the G-tube. Patient has history of gastric bypass surgery due to morbid obesity in 2014. At this time, patient is stable. Patient can tolerate oral intake and we have not been using the percutaneous endoscopic gastrostomy (PEG) tube since the patient has been admitted. At this point, I have added Ensure to his diet. 5. Chronic narcotic dependence for back pain and chronic abdominal pain. Patient is on morphine and oxycodone as needed. 6. Postlaminectomy syndrome. We will continue the patient on morphine and oxycodone as needed. 7. History of major depressive disorder. Patient is stable at this time. 8. Diet. Patient can tolerate oral intake. Patient also has a feeding tube and uses Jevity. However, we have held that. I have added Ensure to the diet. 9. Deep venous thrombosis (DVT) prophylaxis. Patient is on thromboembolism deterrents (TEDs) and sequentials as well as Lovenox. 10. Gastrointestinal (GI) prophylaxis. Patient is on Carafate and Protonix. 11. History of morbid obesity. Patient had a gastric bypass in 2012. 12. History of esophageal stricture. Patient is followed by Dr. Delarosa who has performed dilation in [place]. Patient is stable at this time and tolerating oral intake well. 13. Vitamin D deficiency. Patient is on 2000 units by mouth daily. My preceptor for this patient encounter was Dr. Lamont Edge. The preceptor was physically present in the building during the encounter and was fully available. As needed, all aspects of the patient interview, examination, medical decision making process, and medical care plan development were reviewed and approved by the preceptor. The preceptor is aware and concurs with the plan as stated in the body of this note and will attest to such by his cosignature.
[2016-10-14] MEDS: VANCOMYCIN ORAL SOL 250MG/5ML ORAL SYRINGE PO SCH (18:03)
--- NOTE | 2016-10-14 18:06 | IPN ---
DATE: 10/14/2016 The patient is doing fairly well. He still has not had any stools to be sent for gross specimen. According to the report from nurses there is only been one bowel movement. The patient states today that he has had the best lunch that he has had in 4 years. He ate a whole sandwich and has not vomited. I reviewed his chart from [facility] admission. He was admitted from 09/24 and discharged on 10/01. C diff was positive on 09/26. The patient was seen in consultation by a surgeon Dr. Orozco and Dr. Newman from gastroenterology. The decision was made to treat him with vancomycin on a tapering schedule over 8 weeks. When discussed this with a patien, Edwar states that he went home on [id number] and did not fill his prescription for 3 days because he did not go to the pharmacy but now he has all the prescription at home on hand and when he came to the hospital he was on vancomycin capsules 125 mg four times a day. LABORATORY DATA: White count 3.4, hemoglobin 10.3, hematocrit 31.8, platelets 166. Sodium 139, potassium 4, chloride 106, bicarb 27, BUN 6, creatinine 0.58, glucose 86,calcium 7.6. Blood cultures two sets are negative. IMPRESSION: Recurrent C difficile colitis with at least four episodes. The patient is currently on vancomycin taper over an 8 week period. He is supposed to be on 125 mg four times a day for starting 10/04 for 14 days which would be on until the and then he will be tapered for a schedule from Dr. Newman who is the housekeeping/laundry supervisor who recommended his treatment in [facility] three times a day for 1 week, twice a day for one week, twice a day for 1 week, daily for 1 week, every other day for 2 weeks and then every . Will continue with the same treatment. Hopefully the patient could be discharged home done but there is an issue about eviction and possibly social issues that may hold his discharge.
[2016-10-14 22:00] VITALS: BP 109/73
[2016-10-15] MEDS: VANCOMYCIN ORAL SOL 250MG/5ML ORAL SYRINGE PO SCH ×3 (00:34→11:34)
[2016-10-15] MEDS: MORPHINE 4 MG/ML 1ML SYRINGE IV PRN ×3 (00:34→11:34)
[2016-10-15] MEDS: oxyCODONE 5MG TAB PO PRN ×2 (02:48→08:20)
[2016-10-15 06:00] VITALS: BP 108/71
[2016-10-15 06:30] LABS: BASO % 0.4 % (0.0-1.0); EOS # 0.2 K/mm3 (0.0-0.50); EOS % 3.7 % (0.0-3.0); LARGE UNSTAINED CELL # 0.1 K/mm3 (0.0-0.4); LARGE UNSTAINED CELL % 1.7 % (0.0-4.0); LYMPH # 1.1 K/mm3 (1.5-4.5); LYMPH % 21.5 % (24.0-44.0); MEAN CORPUSCULAR HEMOGLOBIN 30.7 pg (27.0-33.0); MEAN CORPUSCULAR HGB CONC 32.6 g/dl (32.0-36.5); MEAN CORPUSCULAR VOLUME 94.2 fl (80.0-96.0); MONO # 0.2 K/mm3 (0.0-0.8); MONO % 5.2 % (0.0-5.0); NEUTROPHILS # 3.2 K/mm3 (1.8-7.7); NEUTROPHILS % 67.5 % (36.0-66.0); PLATELET COUNT, AUTOMATED 167 k/mm3 (150-450); RED CELL DISTRIBUTION WIDTH 14.8 % (11.5-14.5); WHITE BLOOD COUNT 4.7 K/mm3 (4.0-10.0)
[2016-10-15 06:46] LABS: ANION GAP 4 MEQ/L (8-16); BLOOD UREA NITROGEN 5 MG/DL (7-18); CALCIUM LEVEL 8.1 MG/DL (8.5-10.1); CARBON DIOXIDE LEVEL 31 MEQ/L (21-32); CHLORIDE LEVEL 103 MEQ/L (98-107); CREATININE FOR GFR 0.62 MG/DL (0.70-1.30); GLOMERULAR FILTRATION RATE > 60.0 (>56); GLUCOSE, FASTING 63 MG/DL (70-105); POTASSIUM SERUM 3.9 MEQ/L (3.5-5.1); SODIUM LEVEL 138 MEQ/L (136-145)
[2016-10-15] MEDS: OYSTER SHELL CALCIUM 500 MG TAB PO SCH (08:18)
[2016-10-15] MEDS: SUCRALFATE SUSP 1GM/10ML UD PO SCH ×2 (08:18→11:34)
[2016-10-15] MEDS: VITAMIN D 1,000 INTERNATIONAL UNITS TABLET PO SCH (08:19)
[2016-10-15] MEDS: FERROUS SULFATE 325MG TAB PO SCH (08:19)
[2016-10-15] MEDS: CYANOCOBALAMIN 500 MCG TAB PO SCH (08:19)
[2016-10-15] MEDS: MULTIVITAMINS CHILDREN'S CHEWABLE TABLET PO SCH (08:19)
[2016-10-15] MEDS: LACTOBACILLUS ACIDOPHILUS CAP (BACID) PO SCH (08:20)
[2016-10-15] MEDS: D5W/0.9% SODIUM CHLORIDE 1,000 ML IV SCH (08:31)
[2016-10-15] MEDS: ONDANSETRON 4MG/2ML VIAL (J2405) IV PRN (08:31)
[2016-10-15] MEDS: ENOXAPARIN 40 MG/0.4 ML SYRINGE (J1650) SC SCH (08:32)
[2016-10-15] MEDS ORDERED: FERR325T PO (10:10)
--- NOTE | 2016-10-16 22:09 | DSES ---
DATE OF ADMISSION: 10/14/2016 DATE OF DISCHARGE: 10/15/2016 STEEL ESTIMATOR: Dr. Benavides PROCEDURES: None. PRIMARY CARE PHYSICIAN: Cedric Marrero MD SURGEON: Dr. Delarosa BIOSECURITY OFFICER: Dr. Newman DISCHARGE HOME MEDICATION: - ferrous sulfate 325 mg - vitamin D3 2000 units by mouth daily - vitamin B12 500 mg by mouth daily - Bacid one tab by mouth twice a day - multivitamin chewable one tab by mouth daily - oxycodone HCl 20 mg by mouth every 4 hours as needed pain - Os-Madan 500 mg by mouth twice a day - sucralfate 10 mL by mouth four times a day - Tab-A-Christian one tab by mouth twice a day - vancomycin 125 mg by mouth four times a day, based on the schedule from Dr. Newman PRIMARY DIAGNOSIS: 1. Recurrent diarrhea. SECONDARY DIAGNOSIS: 1. Multiple history of Clostridium difficile colitis going on from July 2016. 2. Chronic abdominal pain, intermittent diarrhea secondary to gastric bypass. 3. Esophageal stricture and dilation by Dr. Delarosa. 4. Narcotic dependence. 5. Kidney stone. 6. Gastrostomy tube in position. 7. Severe protein malnutrition. 8. Cachexia. 9. Major depressive disorder in remission. 10. Avoidance and restricted food intake disorder. 11. Chronic back pain due to post laminectomy pain syndrome. HOSPITAL COURSE: Mr. Stokes is a 51-year-old who presented to the emergency room (ER), due to recurrent episode of diarrhea ongoing for the past three to four years that had started a few months ago, a few months after gastric bypass surgery and back surgery a few months later. The patient had intermittent episodes of severe abdominal pain and worsening diarrhea, unable to tolerate any oral feds and becoming dehydrated and electrolyte imbalance and required recurrent hospitalizations. The patient has been diagnosed with Clostridium difficile in July 2016 and recurrent attack of Clostridium difficile colitis. The patient was in the hospital in [place] and treated for recurrent Clostridium difficile with Dificid and discharged home on 09/09/2016. The patient went to executive director contract shop, Dr. Newman, who had started the patient on vancomycin with tapering. At the time of admission, we had started the patient on IV fluid. The patient was able to tolerate oral intake and therefore we did not do the feeding through the percutaneous endoscopic gastrostomy tube. The patient was continued on vancomycin dosage, oral dosage, from [facility]. Dr. Benavides was consulted, who expressed that if the patient had recurrence in spite of treatment with 10 days of fidaxomicin, then he should be candidate for stool transplant, which could be given to him through the G-tube. After discussion with Dr. Delarosa, his gastric bypass surgeon. During the hospitalizations, the patient was more stable and the number of his stools were decreased. We continued the patient on vancomycin taper, which is scheduled for over an eight week period. He suppose to be on 125 mg four times a day for starting on 10/04/2016 for 14 days, which would be until the and then he will be tapered for the schedule from Dr. Newman, who is the executive director contract shop, who recommended this treatment in [facility] three times a day for one week, twice a day for one week, and then every day for two weeks and every Thursday. Will continue with the same treatment. The patient understands this treatment plan and express that he has the medications at home. At the time of discharge, the patient was medically stable. The patient has some problems with being late for the rent in the apartment. However, [facility] has been consulted, who will take care of the problem. At the time of discharge, the patient was medically stable. DISCHARGE PLACEMENT: Home. FOLLOWUP: Please refer with Dr. Newman, executive director contract shop in [place] and Dr. Marrero, primary physician. DIET: Followup with regular diet. ACTIVITY: As tolerated by the patient. My preceptor for this patient encounter was Dr. Cohen. The preceptor was physically present in the building during the encounter and was fully available. As needed, all aspects of the patient interview, examination, medical decision making process, and medical care plan development were reviewed and approved by the preceptor. The preceptor is aware and concurs with the plan as stated in the body of this note and will attest to such by his/her cosignature.
== END 2016-10-15 12:09 | disposition home or self-care (01) | DRG 248 ==
LOC: EDBD 05:30 → M ED 06:52 → M ED INP 12:40 → M MSPAV 14:36 → OBSVTOIN 10-14 09:32
PROVIDERS: ADMIT Internal Medicine Nephrology; ATTEND Hospitalist
DX: A04.7 Enterocolitis due to Clostridium difficile (principal); R64 Cachexia; E43 Unspecified severe protein-calorie malnutrition; F11.20 Opioid dependence, uncomplicated; E55.9 Vitamin D deficiency, unspecified; K22.2 Esophageal obstruction; N20.0 Calculus of kidney; F50.89 Other specified eating disorder; Z93.1 Gastrostomy status; M96.1 Postlaminectomy syndrome, not elsewhere classified; F17.210 Nicotine dependence, cigarettes, uncomplicated; Z79.899 Other long term (current) drug therapy; Z98.84 Bariatric surgery status; Z90.49 Acquired absence of other specified parts of digestive tract

== ENCOUNTER 2016-10-23 05:49 | Inpatient (IN) | payer OTHER, MEDICARE ==
[~2016-10-23 05:49] MED LIST changes: +FERR325T PO; +VANC125C2 PO
[2016-10-23] MEDS ORDERED: PANTOPRAZOLE 40MG INJ (PROTONIX) (C9113) IV ONE (06:30)
[2016-10-23] MEDS: HYDROmorphone HCL 1 MG/ML SYRINGE (J1170) IV PRN ×2 (06:55→08:32)
[2016-10-23 07:16] LABS: BASO % 0.1 % (0.0-1.0); EOS # 0.1 K/mm3 (0.0-0.50); EOS % 1.4 % (0.0-3.0); LARGE UNSTAINED CELL # 0.1 K/mm3 (0.0-0.4); LARGE UNSTAINED CELL % 1.4 % (0.0-4.0); LYMPH # 0.8 K/mm3 (1.5-4.5); LYMPH % 16.8 % (24.0-44.0); MEAN CORPUSCULAR HEMOGLOBIN 30.5 pg (27.0-33.0); MEAN CORPUSCULAR HGB CONC 32.8 g/dl (32.0-36.5); MONO # 0.2 K/mm3 (0.0-0.8); MONO % 5.4 % (0.0-5.0); NEUTROPHILS # 3.2 K/mm3 (1.8-7.7); NEUTROPHILS % 74.9 % (36.0-66.0); PLATELET COUNT, AUTOMATED 158 k/mm3 (150-450); RED CELL DISTRIBUTION WIDTH 14.5 % (11.5-14.5); WHITE BLOOD COUNT 4.3 K/mm3 (4.0-10.0)
[2016-10-23 07:37] LABS: ALBUMIN 2.9 GM/DL (3.2-5.2); ALBUMIN/GLOBULIN RATIO 0.78 (1.00-1.93); ALKALINE PHOSPHATASE 86 U/L (45-117); ALT/SGPT 15 U/L (12-78); AMYLASE 18 U/L (25-115); ANION GAP 5 MEQ/L (8-16); AST/SGOT 15 U/L (15-37); BILIRUBIN,DIRECT 0.3 MG/DL (0.0-0.2); BILIRUBIN,TOTAL 0.6 MG/DL (0.2-1.0); BLOOD UREA NITROGEN 10 MG/DL (7-18); CALCIUM LEVEL 8.4 MG/DL (8.5-10.1); CARBON DIOXIDE LEVEL 31 MEQ/L (21-32); CHLORIDE LEVEL 105 MEQ/L (98-107); GLOMERULAR FILTRATION RATE > 60.0 (>56); GLUCOSE, FASTING 83 MG/DL (70-105); POTASSIUM SERUM 4.2 MEQ/L (3.5-5.1); SODIUM LEVEL 141 MEQ/L (136-145); TOTAL PROTEIN 6.6 GM/DL (6.4-8.2)
[2016-10-23] MEDS ORDERED: NS 1,000 ML IV ONE (08:15)
[2016-10-23] MEDS ORDERED: FERROUS SULFATE 325MG TAB PO SCH (09:00)
[2016-10-23] MEDS ORDERED: CYANOCOBALAMIN 500 MCG TAB PO SCH (09:00)
[2016-10-23] MEDS ORDERED: VITAMIN D 1,000 INTERNATIONAL UNITS TABLET PO SCH (09:00)
[2016-10-23] MEDS ORDERED: LACTOBACILLUS ACIDOPHILUS CAP (BACID) PO SCH (09:00)
[2016-10-23] MEDS ORDERED: MULTIVITAMINS CHILDREN'S CHEWABLE TABLET PO SCH (09:00)
[2016-10-23] MEDS ORDERED: OYSTER SHELL CALCIUM 500 MG TAB PO SCH (09:00)
[2016-10-23] MEDS ORDERED: PANTOPRAZOLE 40MG INJ (PROTONIX) (C9113) IV SCH (09:00)
--- NOTE | 2016-10-23 10:20 | REP ---
REASON: Abdominal pain. COMPARISON: 07/23/2016 The PEJ tube is unchanged. The intestinal gas pattern is unchanged. The osseous structures are unchanged. IMPRESSION: No change. Signed by Wilfrido Camejo DO 10/23/2016 10:42 A
[2016-10-23 10:26] LABS: MAGNESIUM LEVEL 2.2 MG/DL (1.8-2.4); T UPTAKE 32 % (33-40); THYROXINE (T4) 10.5 UG/DL (4.5-12.0)
[2016-10-23] MEDS ORDERED: DICYCLOMINE INJ 20MG/2ML (J0500) IM ONE (10:30)
[2016-10-23] MEDS ORDERED: NS 1,000 ML IV SCH (11:16)
[2016-10-23] MEDS ORDERED: ONDANSETRON 4MG/2ML VIAL (J2405) IV PRN (11:30)
[2016-10-23] MEDS ORDERED: ISOVUE-370 76% 100ML VIAL (Q9967) As Ordered ONE (11:30)
[2016-10-23] MEDS ORDERED: IPRATROPIUM 0.5MG/ALBUTEROL 2.5MG INH SOL UD 3ML (DUONEB)(J7620) NEB PRN (11:30)
[2016-10-23] MEDS ORDERED: MORPHINE 2 MG/ML 1ML SYRINGE IV PRN (11:30)
[2016-10-23] MEDS ORDERED: oxyCODONE 5MG TAB PO PRN (11:30)
[2016-10-23] MEDS ORDERED: OMEP40CA2 PO (11:49)
[2016-10-23] MEDS ORDERED: ZOFR4TAB3 PO (11:49)
[2016-10-23] MEDS ORDERED: SUCRALFATE SUSP 1GM/10ML UD PO SCH ×2 (12:00→13:00)
[2016-10-23] MEDS ORDERED: VANCOMYCIN ORAL SOL 250MG/5ML ORAL SYRINGE PO SCH (12:00)
[2016-10-23] MEDS ORDERED: KETOROLAC 30 MG/ML VIAL (J1885) IV ONE (12:15)
--- NOTE | 2016-10-23 12:25 | REP ---
REASON: Pain all over. COMPARISON: Multiple, the latest 10/12/2016 also after contrast administration. Contrast utilized today: 100 mL Isovue 370. The lung bases are unchanged. There are no pleural or pericardial effusions. The liver, spleen, pancreas, adrenal glands, and kidneys are unchanged. There is pancreatic atrophy and the right renal cyst status quo. There is a nonobstructing right renal calculus status quo. Surgical clips are seen in gallbladder fossa from previous cholecystectomy. Gastric postoperative change is noted with a gastrotomy tube in place, a portion of which enters the small bowel, all unchanged. There is no significant change in the appearance of the bowel loops or their mesenteries. There are multiple gas-filled mildly dilated small bowel loops in the abdomen without evidence of nataly intestinal obstruction. No definite evidence of free fluid or free air is seen in the abdomen. The abdominal aorta and para-aortic regions are within normal limits and unchanged. CT PELVIS: There is a small to moderate amount of free pelvic fluid, status quo. The pelvic bowel loops and their mesenteries are within normal limits. There is no evidence of a pelvic mass or adenopathy. Bone window technique throughout the examination shows the osseous structures to be unchanged. Bilateral transpedicular screws are again see L5 and S1 status quo with chronic spinal degenerative changes and suspected mild bone demineralization. IMPRESSION: No significant change with findings as described above. A mild ileus is suspected, status quo. Free fluid is seen in the pelvis of uncertain etiology. Correlate clinically. Consider followup. ? Signed by Wilfrido Camejo DO 10/23/2016 12:40 P
[2016-10-23] MEDS ORDERED: KETOROLAC 30 MG/ML VIAL (J1885) IV PRN (12:30)
--- NOTE | 2016-10-23 13:58 | HPE ---
DATE OF ADMISSION: 10/23/2016 PRIMARY CARE PHYSICIAN: Cedric Marrero MD COLORECTAL SURGEON: Dr. Delarosa in [place] INFECTIOUS DISEASE DOCTOR: Dr. Khoa Benavides CHIEF COMPLAINT: Abdominal pain, as well as diarrhea, nausea, and vomiting. HISTORY OF PRESENT ILLNESS: Mr. Stokes is a 51-year-old male with multiple past medical history, including recurrent diarrhea, presented to the emergency room (ER) today due to experiencing abdominal pain, as well as diarrhea, nausea, and vomiting. The patient expressed that the symptoms started on early Thursday morning. The patient was recently admitted to [facility] due to enteritis from 10/14/2016 to 10/15/2016. After discharge, the patient was seen by Dr. Delarosa at [facility], where he admitted the patient due to the possibility of Clostridium (C) difficile. However, after 3 or 4 days, the patient was discharged home. Last week on , the patient was seen by Dr. Delarosa, and the patient expressed that after coming back home, early in the morning, he woke up due to abdominal pain and having diarrhea and being nauseated. The patient expressed that he usually has abdominal pain, and it is 5 or 7 out of 10. However, on Thursday morning, his abdominal pain was increased to 10/10. The patient expressed that before that he had one or two episodes of diarrhea. However, his episode has increased to five or six. The patient says the first two diarrhea he saw some blood. However, after that, he did not see any blood in his stool. The patient also was nauseated. The patient had several episodes of vomiting. However, no blood was seen in the vomit. The patient continues to have diarrhea and vomiting. The patient expressed that the last time that he ate was yesterday when he had some ice cream. The patient has a percutaneous endoscopic gastrostomy (PEG) tube, and the last time that he used Jevity was 3 days ago. The patient also felt lightheaded and dizzy. However, the patient denies episode of falls. The patient also felt weak and tired since Thursday. The patient denies fever. However, the patient feels chills and night sweats. The patient denies sick contact or new diet. The patient also denies seizure-type activity of loss of consciousness. ALLERGIES: No known drug allergies. PAST MEDICAL HISTORY: 1. Recurrent C. difficile colitis from July 2016. 2. Chronic abdominal pain and intermittent diarrhea secondary to gastric bypass surgery for morbid obesity in 2012. 3. History of esophageal stricture requiring dilation, which was done by Dr. Delarosa in [place]. 4. Chronic narcotic dependence. 5. Kidney stones. 6. Gastrostomy tube in position. 7. Severe protein-calorie malnutrition. 8. Cachexia. 9. Major depressive disorder. 10. Avoidant and restrictive food intake disorder. 11. Chronic back pain due to postlaminectomy pain syndrome. PAST SURGICAL HISTORY: 1. Deysi-en-Y gastrojejunostomy for morbid obesity in May 2012 when he had weighed 389 pounds. 2. Appendectomy. 3. Cholecystectomy. 4. Back surgery in July 2013. 5. New percutaneous endoscopic gastrostomy (PEG) tube and line in May 2016. 6. Right arm tendon repair. 7. Right hand surgery. 8. Upper GI endoscopy by Dr. Minaya in 2013 and found to have an ulceration at the site of the anastomosis with scar and exuded erosions and friable mucosa. 9. Lumbar epidural steroid injection in [address] Griffin. HOME MEDICATIONS: - vitamin D3 2000 units by mouth daily - vitamin B12 500 mcg by mouth daily - ferrous sulfate 325 mg by mouth daily - Bacid one tablet by mouth twice a day - multivitamin one tablet by mouth daily - omeprazole 40 mg by mouth daily - Zofran 4 mg by mouth every 4 hours as needed nausea - oxycodone 20 mg by mouth every 4 hours as needed pain - Os-Madan 500 mg by mouth twice a day - sucralfate 10 mL by mouth four times a day - Tab-A-Christian one tablet by mouth twice a day - vancomycin 125 mg by mouth four times a day started on 10/10/2016 on 125 mg four times a day times 2 weeks and then taper every week for 7 weeks SOCIAL HISTORY: The patient has been smoking about 1/2 pack to 1 pack per day for the past 30 years. The patient denies drinking alcohol or alcoholic beverages at this time, and he stopped drinking about 9 or 10 years ago. Before that, the patient occasionally drank. The patient smoked pot and last smoked was about 3 weeks ago, and he smoked 1/2 joint. The patient lives with his and his son in [place]. The patient has not traveled outside of the [place]. The patient has one dog. FAMILY HISTORY: The patient has one son who is healthy. The patient has two brothers and three sisters. One of his sisters has brain aneurysm. The patient's father due to diabetes. The patient's mother is still alive; however, she has bone cancer. REVIEW OF SYSTEMS: GENERAL: The patient expressed that he has been having chills and night sweats. However, the patient is not sure if he had fever. The patient also does not know if he had weight gain or weight loss. HEENT: The patient expressed that he has been having lightheadedness and dizziness. However, the patient denies acute vision or hearing changes. The patient also denies problem with chewing food or sinusitis. NECK: The patient denies lumps, bumps, or decreased range of motion of his neck. HEART: The patient denies palpitations, racing or skipping heartbeat, or chest pain. ABDOMEN: The patient expressed that he has been having abdominal pain in all quadrants 10/10, which increases with palpitation. The patient also has been having diarrhea, nausea, and vomiting. The patient expressed that the diarrhea is about five or six episodes per day and some episode of vomiting. However, the patient denies hematochezia, hemoptysis, melena. NEUROLOGIC: The patient denies history of transient ischemic attack (TIA), cerebrovascular accident (CVA), or seizure-type activities. PHYSICAL EXAMINATION: VITAL SIGNS: Temperature 96, pulse 44, respiratory rate 18, blood pressure 107/60, pulse oximetry 100% on room air. GENERAL APPEARANCE: The patient was lying in bed, in acute distress due to abdominal pain. Cachexia. The patient was awake, alert, and oriented to time, place, and person. HEENT: Normocephalic, atraumatic. Pupils are equal and reactive to light. Oral mucosa is moist. NECK: Soft, supple. No lymphadenopathy. No thyromegaly. No jugular venous distention (JVD). HEART: Regular rate and rhythm. Normal S1, S2. ABDOMEN: Soft. Tender to palpation in all quadrants. Positive bowel sounds in all quadrants. The patient has a PEG tube, and the site of the PEG tube was no sign of erythema, swelling, or bleeding was noticed. LUNGS: Clear breath sounds bilaterally. Good air movement. EXTREMITIES: No lower extremity edema. +2 pulses in both lower extremities. The patient has decreased range of motion in both lower extremities, possibly secondary to cachexia. The patient also has decreased strength 4/5 in both lower extremities. However, the patient has normal clinical documentation improvement specialist in upper extremities. NEUROLOGICAL: Cranial nerves II-XII intact. LABORATORY DATA: White blood cells 4.3, red blood cells 3.85, hemoglobin 11.8, hematocrit 35.8, MCV 93, MCH 30.5, MCHC 32.8, RDW 14.5, platelet count 158, neutrophil percentage 74.9, lymphocyte percentage 16.8, monocyte percentage 5.4, eosinophil percentage 1.4, basophil percentage 0.1, leukocyte percentage 1.4. Sodium 141, potassium 4.2, chloride 105, carbon dioxide 31, anion gap 5, BUN 10, creatinine 0.7, glomerular filtration rate more than 60, fasting glucose 83, calcium 8.4, magnesium 2.2, total bilirubin 0.6, direct bilirubin 0.3, AST 15, ALT 15, alkaline phosphatase 86, total protein 6.6, albumin 2.9, amylase 18, lipase 5, TSH 0.239, free T4 index 3.4, thyroxine 10.5, T3 uptake 32. IMAGING TECHNIQUES Chest x-ray: No changes since previous study, which was done on 07/23/2014. CT abdomen and pelvis: Result is pending at this time. ASSESSMENT AND PLAN: 1. Recurrent diarrhea. The patient has been started on intravenous (IV) fluids. Also, we have ordered (dictation cut off). Result is pending at this time. We made the patient nothing by mouth. The patient also has a line. However, we stopped using the Jevity. The patient is on IV fluid. The patient will continue with the Carafate and IV Protonix. 2. History of Clostridium (C) difficile. Gastrointestinal (GI) panel is pending at this time. We will continue the patient on vancomycin 125 mg every 6 hours, and we will consult Dr. Benavides. 3. Anemia. A previous study indicated the possibility of iron deficiency. The patient is on ferrous sulfate. 4. Bradycardia. Electrocardiogram (EKG) indicated the patient has sinus bradycardia. This could be possibly secondary to opioid medication versus the patient being malnutrition and cachexia. We have consulted Dr. Moreno. At this time, we will continue monitoring the patient. Also, we have stopped opiate medications. 5. Severe protein malnutrition and cachexia. The patient has a gastrostomy tube (G-tube). The patient expressed that he has been eating ice cream, and the last Jevity use was 3 days ago. According to the previous records, the patient is on Jevity 190 mL per 24 hours. 6. Deep venous thrombosis (DVT) prophylaxis. The patient is on Lovenox. 7. Gastrointestinal prophylaxis. The patient is on Protonix IV. 8. History of morbid obesity. This is a chronic issue. The patient had a gastric bypass in 2012 and stable. 9. History of esophageal stricture. The patient had a dilation, which was done by Dr. Delarosa in [place]. 10. Pain management. At this time, we have stopped all opiate medication. Due to bradycardia, the patient is to receive one dose of Toradol IV. We will continue to monitor the patient for any abnormal symptoms. My preceptor for this patient encounter was Jin Cortez MD. The preceptor was physically present in the building during the encounter and was fully available. As needed, all aspects of the patient interview, examination, medical decision making process, and medical care plan development were reviewed and approved by the preceptor. The preceptor is aware and concurs with the plan as stated in the body of this note and will attest to such by his/her cosignature.
[2016-10-23] MEDS ORDERED: IPRATROPIUM 0.5MG/ALBUTEROL 2.5MG INH SOL UD 3ML (DUONEB)(J7620) NEB SCH (14:00)
[2016-10-23 16:00] VITALS: BP 103/69
--- NOTE | 2016-10-24 07:49 | IPNPDOC ---
Text Note Date of Service The patient was seen on 10/23/16. NOTE Pt with Symptomatic bradycardia HR 30s, likely precipitated by opioid medications, which will be held at this time. Pt was in sinus bradycardia. With holding of opioid, HR slightly improving to the 50s. No longer symptomatic. Vitals otherwise stable. I have discussed risks and benefits of staying inpatient for a formal evaluation of bradycardia by Dr. Moreno. Pt was also advised that by leaving AMA, there is a risk of worsening bradycardia, respiratory failure, and . Pt decided to leave AMA. Pt verbalized understanding. Good insight and judgement. Will need to return to ED if symptoms worsen, and follow up with his PCP to refer him to a internal medicine nurse. Pt was educated on the risk of bradycardic episodes with the use of opioids, and verbalized understanding. Please see resident note from 10/23/16 for H&P. Upon examining patient on admission, there was no abdominal tenderness or distension. VS,Fishbone, I+O VS, Fishbone, I+O Vital Signs Date Time Temp Pulse Resp B/P (MAP) Pulse Ox O2 Delivery O2 Flow Rate FiO2 10/23/16 16:00 97.3 54 20 103/69 (80) 98 Room Air CHAPARRO CHANCE MD Oct 24, 2016 07:49
[2016-10-24] MEDS ORDERED: PANTOPRAZOLE 40MG INJ (PROTONIX) (C9113) IV SCH (09:00)
[2016-10-24] MEDS ORDERED: ENOXAPARIN 40 MG/0.4 ML SYRINGE (J1650) SC SCH (09:00)
--- NOTE | 2016-10-25 07:01 | ECGEPIP ---
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 Order Number: [id number] Reading MD: Kathryn Berg Measurements Intervals [place] Rate: 34 P: 57 AK: 182 QRS: -15 QRSD: 101 T: 8 QT: 487 QTc: 367 Interpretive Statements SINUS BRADYCARDIA LOW QRS VOLTAGE IN EXTREMITY LEADS NSTTW ABNORMALITY DELAYED R PROGRESSION Electronically Signed On 10-25-2016 7:01:12 EDT by Kathryn Berg
== END 2016-10-23 17:13 | disposition left against medical advice (07) | DRG 249 ==
LOC: M ED 07:21 → M ED INP 11:57
PROVIDERS: ADMIT Internal Medicine; ATTEND Internal Medicine
DX: R19.7 Diarrhea, unspecified (principal); E43 Unspecified severe protein-calorie malnutrition; Z93.1 Gastrostomy status; D64.9 Anemia, unspecified; R00.1 Bradycardia, unspecified; R10.9 Unspecified abdominal pain

== ENCOUNTER 2016-11-08 08:47 | Emergency (ER) | payer OTHER, MEDICARE ==
[~2016-11-08 08:47] MED LIST changes: -AVEL1TAB PO; +AVEL1TAB3 PO; +BACITAB PO; -BACITAB3 PO; -CALC600T21 PO; +CALC600T60 PO; +FERR1TAB8 PO; -FERR325T PO; -MS C15TA2 PO; +MS C15TA8 PO; +OXYC-405 PO; -OXYC1TAB57 PO; -OXYC40TA13 PO; +OXYC40TA29 PO; +SENN1TAB10 PO; -SENN8.6T10 PO
[2016-11-08] MEDS ORDERED: HYDROmorphone HCL 1 MG/ML SYRINGE (J1170) IV ONE (10:00)
[2016-11-08] MEDS ORDERED: PANTOPRAZOLE 40MG INJ (PROTONIX) (C9113) IV ONE (10:00)
[2016-11-08] MEDS ORDERED: NS 1,000 ML IV ONE (10:00)
[2016-11-08] MEDS ORDERED: METOCLOPRAMIDE INJ 10MG/2ML VIAL (J2765) IV ONE (10:00)
--- NOTE | 2016-11-08 10:48 | REP ---
Abdominal Series: Three views. History: Abdominal pain and diarrhea. Comparison radiographs October 23, 2016. Findings: Upright chest radiograph is normal. There is no evidence of infiltrate or free subdiaphragmatic air. Heart size is normal. Supine abd erect views of the abdomen demonstrate a feeding tube in the right upper quadrant unchanged. Bowel gas pattern is unremarkable. Lumbosacral spine fusion screws are noted. There are clips in the right upper quadrant. There is a clip in the right pelvis. No free air is seen. Impression: Feeding tube in the right upper quadrant. Unremarkable bowel gas pattern. No acute disease. Signed by Steven Fontaine MD 11/08/2016 10:53 A
[2016-11-08 10:53] LABS: BASO % 0.2 % (0.0-1.0); EOS # 0.1 K/mm3 (0.0-0.50); LARGE UNSTAINED CELL % 0.7 % (0.0-4.0); LYMPH # 0.5 K/mm3 (1.5-4.5); LYMPH % 10.2 % (24.0-44.0); MEAN CORPUSCULAR HEMOGLOBIN 30.4 pg (27.0-33.0); MEAN CORPUSCULAR HGB CONC 33.2 g/dl (32.0-36.5); MEAN CORPUSCULAR VOLUME 91.7 fl (80.0-96.0); MONO # 0.1 K/mm3 (0.0-0.8); MONO % 2.4 % (0.0-5.0); NEUTROPHILS % 84.6 % (36.0-66.0); PLATELET COUNT, AUTOMATED 171 k/mm3 (150-450); RED CELL DISTRIBUTION WIDTH 14.6 % (11.5-14.5); WHITE BLOOD COUNT 4.8 K/mm3 (4.0-10.0)
[2016-11-08 11:11] VITALS: BP 104/65
[2016-11-08 11:14] LABS: ALBUMIN/GLOBULIN RATIO 0.75 (1.00-1.93); ALKALINE PHOSPHATASE 425 U/L (45-117); ALT/SGPT 45 U/L (12-78); AMYLASE 25 U/L (25-115); ANION GAP 3 MEQ/L (8-16); AST/SGOT 89 U/L (15-37); BILIRUBIN,DIRECT 0.3 MG/DL (0.0-0.2); BILIRUBIN,TOTAL 0.6 MG/DL (0.2-1.0); BLOOD UREA NITROGEN 16 MG/DL (7-18); CALCIUM LEVEL 8.2 MG/DL (8.5-10.1); CARBON DIOXIDE LEVEL 33 MEQ/L (21-32); CHLORIDE LEVEL 104 MEQ/L (98-107); CREATININE FOR GFR 0.51 MG/DL (0.70-1.30); GLOMERULAR FILTRATION RATE > 60.0 (>56); GLUCOSE, FASTING 88 MG/DL (70-105); POTASSIUM SERUM 3.5 MEQ/L (3.5-5.1); SODIUM LEVEL 140 MEQ/L (136-145)
[2017-03-18] MEDS ORDERED: K-TA1TAB PO (08:37)
[2017-03-18] MEDS ORDERED: VANC125C2 PO (08:41)
[2017-03-26] MEDS ORDERED: FLAG500T PO (09:00)
[2017-03-28] MEDS ORDERED: POTA20TA PO (13:36)
[2017-03-28] MEDS ORDERED: METR1TAB66 PO (13:36)
[2017-03-28] MEDS ORDERED: VANC125C2 PO (13:36)
== END 2016-11-08 12:04 | disposition home or self-care (01) ==
LOC: M ED 10:00
DX: G89.29 Other chronic pain (principal); R10.9 Unspecified abdominal pain; F17.200 Nicotine dependence, unspecified, uncomplicated; M43.26 Fusion of spine, lumbar region; Z98.84 Bariatric surgery status; R51 Headache; R42 Dizziness and giddiness; I25.2 Old myocardial infarction; E78.00 Pure hypercholesterolemia, unspecified; I10 Essential (primary) hypertension; Z86.718 Personal history of other venous thrombosis and embolism; Z86.19 Personal history of other infectious and parasitic diseases; Z93.1 Gastrostomy status; K52.9 Noninfective gastroenteritis and colitis, unspecified; K29.70 Gastritis, unspecified, without bleeding; E46 Unspecified protein-calorie malnutrition; M54.9 Dorsalgia, unspecified; D75.9 Disease of blood and blood-forming organs, unspecified; F41.9 Anxiety disorder, unspecified; F32.9 Major depressive disorder, single episode, unspecified; Z79.899 Other long term (current) drug therapy
CPT/HCPCS: 74022; 80048; 80076; 82150; 83690; 85025; 96374; 96375; 99283; C9113; J1170; J2765

== ENCOUNTER 2017-01-04 14:18 | Inpatient (IN) | payer OTHER, MEDICARE ==
[~2017-01-04] VITALS: Ht 180.3 cm; Wt 57.5 kg
[2017-01-04] MEDS ORDERED: OLAN5ZYD PO (14:33)
[2017-01-04] MEDS ORDERED: SENN8.6C PO (14:33)
[2017-01-04] MEDS ORDERED: VENL150C43 PO (14:33)
[2017-01-04] MEDS ORDERED: ZINC100T4 PO (14:33)
[2017-01-04] MEDS: D5W/0.9% SODIUM CHLORIDE 1,000 ML IV SCH (15:12)
[2017-01-04 15:20] LABS: BASO # 0.1 K/mm3 (0.0-0.2); BASO % 2.4 % (0.0-1.0); EOS # 0.1 K/mm3 (0.0-0.50); EOS % 1.7 % (0.0-3.0); LARGE UNSTAINED CELL # 0.1 K/mm3 (0.0-0.4); LARGE UNSTAINED CELL % 3.4 % (0.0-4.0); LYMPH # 0.9 K/mm3 (1.5-4.5); LYMPH % 21.8 % (24.0-44.0); MEAN CORPUSCULAR HEMOGLOBIN 30.6 pg (27.0-33.0); MEAN CORPUSCULAR HGB CONC 32.6 g/dl (32.0-36.5); MEAN CORPUSCULAR VOLUME 93.8 fl (80.0-96.0); MONO # 0.3 K/mm3 (0.0-0.8); MONO % 6.7 % (0.0-5.0); NEUTROPHILS # 2.6 K/mm3 (1.8-7.7); PLATELET COUNT, AUTOMATED 308 k/mm3 (150-450); RED CELL DISTRIBUTION WIDTH 15.7 % (11.5-14.5); WHITE BLOOD COUNT 4.1 K/mm3 (4.0-10.0)
--- NOTE | 2017-01-04 15:44 | REP ---
Portable chest, 03:15 p.m., single AP view, patient sitting: Comparison is 11/08/2016. The lung hernandez are clear. The cardiac size is normal. The raad, mediastinum, and bony thorax are unremarkable. Impression: Negative portable chest. There is no interval change. Signed by Vidal Porras MD 01/04/2017 03:35 P
[2017-01-04] MEDS: HYDROmorphone HCL 1 MG/ML SYRINGE (J1170) IV PRN ×2 (15:57→17:05)
[2017-01-04 15:58] LABS: ANION GAP 8 MEQ/L (8-16); BLOOD UREA NITROGEN 16 MG/DL (7-18); CALCIUM LEVEL 8.7 MG/DL (8.5-10.1); CARBON DIOXIDE LEVEL 28 MEQ/L (21-32); CHLORIDE LEVEL 106 MEQ/L (98-107); CREATININE FOR GFR 0.63 MG/DL (0.70-1.30); FREE T4 0.95 NG/DL (0.76-1.46); GLOMERULAR FILTRATION RATE > 60.0 (>56); GLUCOSE, FASTING 82 MG/DL (70-105); MAGNESIUM LEVEL 2.1 MG/DL (1.8-2.4); POTASSIUM SERUM 3.9 MEQ/L (3.5-5.1); SODIUM LEVEL 142 MEQ/L (136-145)
--- NOTE | 2017-01-04 17:16 | ECGEPIP ---
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
--- NOTE | 2017-01-04 19:40 | REPUSA ---
CLINICAL HISTORY: Syncope. TECHNIQUE: Multiple axial brain CT scan sections were obtained from base to vertex without contrast a dministration. COMMENTS: The study shows normal configuration of sella turcica. There are no intra or extra-axial collections. There is no mass effect or midline shift. There is no evidence of hematoma formation. No hydrocephal us is present. No abnormal calcifications are noted. No significant abnormalities are seen either in the posterior fossa or supratentorial compartment. The mastoid air cells are patent. Left sphenoid sinusitis is seen. IMPRESSION: No evidence of acute intracranial pathology. Thank you for your kind referral of this patient.
[2017-01-04] MEDS ORDERED: SENN1TAB10 PO (19:42)
[2017-01-04] MEDS ORDERED: IRON65TA PO (19:42)
[2017-01-04] MEDS ORDERED: HYDROmorphone HCL 1 MG/ML SYRINGE (J1170) IV ONE (19:45)
[2017-01-04] MEDS ORDERED: METOCLOPRAMIDE INJ 10MG/2ML VIAL (J2765) IV PRN (19:45)
[2017-01-04] MEDS: OYSTER SHELL CALCIUM 500 MG TAB PO SCH (21:00)
[2017-01-04] MEDS: MORPHINE 2 MG/ML 1ML SYRINGE IV PRN (21:53)
[2017-01-04] MEDS: oxyCODONE 5MG TAB PO PRN (22:24)
[2017-01-04 23:45] VITALS: BP 97/72
[2017-01-05] MEDS: D5W/0.9% SODIUM CHLORIDE 1,000 ML IV SCH ×2 (00:04→17:24)
[2017-01-05] MEDS: SUCRALFATE SUSP 1GM/10ML UD PO SCH ×5 (01:07→20:08)
[2017-01-05] MEDS: oxyCODONE 5MG TAB PO PRN ×4 (02:29→20:08)
[2017-01-05] MEDS: MORPHINE 2 MG/ML 1ML SYRINGE IV PRN ×2 (04:41→09:09)
[2017-01-05 04:43] VITALS: BP_SYST 100; BP_SYST 95; BP_SYST 98; BP_DIAS 63; BP_DIAS 66; BP_DIAS 68
[2017-01-05 04:46] VITALS: BP 98/68
[2017-01-05 05:46] LABS: BASO % 0.5 % (0.0-1.0); EOS # 0.1 K/mm3 (0.0-0.50); EOS % 2.5 % (0.0-3.0); LARGE UNSTAINED CELL # 0.1 K/mm3 (0.0-0.4); LARGE UNSTAINED CELL % 3.6 % (0.0-4.0); LYMPH # 0.9 K/mm3 (1.5-4.5); LYMPH % 28.2 % (24.0-44.0); MEAN CORPUSCULAR HEMOGLOBIN 31.2 pg (27.0-33.0); MEAN CORPUSCULAR HGB CONC 33.1 g/dl (32.0-36.5); MEAN CORPUSCULAR VOLUME 94.1 fl (80.0-96.0); MONO # 0.3 K/mm3 (0.0-0.8); MONO % 8.6 % (0.0-5.0); NEUTROPHILS # 1.9 K/mm3 (1.8-7.7); NEUTROPHILS % 56.6 % (36.0-66.0); PLATELET COUNT, AUTOMATED 248 k/mm3 (150-450); RED CELL DISTRIBUTION WIDTH 15.6 % (11.5-14.5); WHITE BLOOD COUNT 3.3 K/mm3 (4.0-10.0)
[2017-01-05 06:25] LABS: ANION GAP 8 MEQ/L (8-16); BLOOD UREA NITROGEN 16 MG/DL (7-18); CALCIUM LEVEL 8.2 MG/DL (8.5-10.1); CARBON DIOXIDE LEVEL 27 MEQ/L (21-32); CHLORIDE LEVEL 107 MEQ/L (98-107); GLOMERULAR FILTRATION RATE > 60.0 (>56); GLUCOSE, FASTING 93 MG/DL (70-105); POTASSIUM SERUM 3.1 MEQ/L (3.5-5.1); SODIUM LEVEL 142 MEQ/L (136-145)
[2017-01-05] MEDS ORDERED: POTASSIUM CHLORIDE 10 MEQ SR TABLET PO ONE ×2 (07:45→11:00)
[2017-01-05 08:00] VITALS: BP 107/65
--- NOTE | 2017-01-05 08:04 | HPE ---
DATE OF ADMISSION: 01/04/2017 PRIMARY CARE PROVIDER: Cedric Marrero. CHIEF COMPLAINT: Dizziness, lightheadedness and fall down the stairs in his house this afternoon. PAST MEDICAL HISTORY: Chronic abdominal pain and intermittent diarrhea after gastric bypass surgery from morbid obesity in 2012. Mild esophageal stricture with intermittent scheduled dilatation by Dr. Delarosa in [place]. Severe protein calorie malnutrition. Gastrojejunostomy tube in place for tube feeding. It was changed in December 2016 for a bigger tube. Recurrent Clostridium difficile infection in 2016, last one in October 2016. Chronic narcotic dependence. Kidney stones. Cachexia. History of major depressive disorder in remission. Avoidant and restrictive food intake disorder. 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 Chronic hypotension with usual systolic blood pressure in 90s and low 100s. HISTORY OF PRESENT ILLNESS: This is a 51-year-old male who had gastric bypass surgery in 2013 for morbid obesity when he had weighed 398 pounds. He did well for a few months after the surgery, then he had back surgery for chronic back pain and disc disease in 2013. After that, patient developed complications related to his gastric bypass surgery, inability to tolerate food requiring TPN as well as extreme weight loss and requiring feeding tube placement. Since then, patient has been having chronic intermittent abdominal pain with diarrhea which is an ongoing issue. Patient was recently admitted in [facility] for 2 weeks for similar symptoms and has undergone esophageal dilatation as well as change of his feeding tube to a bigger size as he was found to be very malnourished with weight of only 107 pounds. Patient's tube feeding was changed to Jevity 2 calories at a rate of 80 mL/hr. Patient was tolerating the tube feeding. Patient was discharged from the hospital on 01/03/2017, came back home, set up his feeding tube which was working when this morning he woke up and wanted to go out of his house to visit his neighbors when he felt dizzy, lightheaded and fell down his front stairs which he thinks about three or four, having some injury to his left elbow and left knee. Patient was brought to the emergency room. In the ED, patient had CT head and also had injured his head. Had a CT head done which did not show any acute intracranial pathology. There was some bruising and some lacerations on the elbow and some superficial abrasions on the left knee without any evidence of bony fracture. The patient was dizzy and lightheaded and blood pressures were low so that patient was admitted to the hospitalist service for further evaluation. PAST SURGICAL HISTORY: Deysi-en-Y gastrojejunostomy in May 2012. Back surgery in July 2013. Appendectomy. Cholecystectomy. Feeding tubes, most recent one was changed in 12/2016 when a larger and more flexible tube was put in. Right arm tendon repair. Right hand surgery. Lumbar epidural steroid injection in 2005. Upper GI endoscopy in 2013. He was found to have an ulceration at the site of anastomosis with scar, friable mucosa. SOCIAL HISTORY: Patient smokes about half a pack per day. Previously used to smoke pot. Denies any alcohol use. Lives with and son in [place]. ALLERGIES: No known drug allergies. REVIEW OF SYSTEMS: Patient denies any fevers or chills. Denies any vomiting. Has chronic abdominal pain which is not any worse than his usual at present. Denies any retching. Denies any diarrhea at present. Has some pain in his elbows and knees where he got hurt after his fall. Denies any shortness of breath, any chest pain, any cough or phlegm. PHYSICAL EXAMINATION: Vital signs: Temperature 99.8, pulse 74, respiratory rate 16, blood pressure 100/72. Patient's blood pressure was 86/67 on admission. General: Patient awake, alert, oriented time three lying down in bed in no acute distress. HEENT: Normocephalic, atraumatic. Moist mucous membranes. Anicteric eyes. Chest: Clear to auscultation. Cardiovascular: S1, S2 regular. No rub, murmur or gallop. Abdomen: Soft, nontender, bowel sounds present. Extremities: No edema. LABORATORY DATA: WBC 4.1, hemoglobin 11.9, platelet 308. Sodium 142, potassium 3.9, chloride 106, bicarbonate 28, BUN 16, creatinine 0.6. Liver function tests are normal. Lactate 1.7. TSH 0.43. Cardiac enzymes are normal. ASSESSMENT AND PLAN: This is a 51-year-old male admitted for hypotension and presyncope and fall. Plan for presyncope hypotension: Will admit the patient in progressive care unit (PCU). Will check orthostatic blood pressures. Will give patient IV fluids for hydration. Patient is known to have chronic hypotension with baseline in 90s. However, it was a little lower than baseline. Will continue to monitor under observation. Fall. Patient has some superficial bruising and abrasions, however, no fractures or dislocation. Chronic abdominal pain. Will continue with oxycodone as per home schedule. Will also add morphine IV every 4 hours as required. Severe protein calorie malnutrition. Will continue with tube feeding. Jevity 2 calorie at rate of 80 mL/hr. Will allow regular diet, whatever patient can tolerate. Patient prefers to eat ice cream. Deep venous thrombosis (DVT) prophylaxis has been ordered. Gastrointestinal (GI) prophylaxis has been ordered. History of major depression now in remission. Will continue with home medication venlafaxine, olanzapine. Multiple vitamin deficiencies. Will continue with vitamin B12 with iron, multivitamins, calcium.
[2017-01-05] MEDS: ENOXAPARIN 40 MG/0.4 ML SYRINGE (J1650) SC SCH (09:08)
[2017-01-05] MEDS: OMEPRAZOLE 20 MG CAP PO SCH (09:09)
[2017-01-05] MEDS: OYSTER SHELL CALCIUM 500 MG TAB PO SCH ×2 (09:10→20:07)
[2017-01-05] MEDS: FERROUS SULFATE 325MG TAB PO SCH (09:10)
[2017-01-05] MEDS: CYANOCOBALAMIN 500 MCG TAB PO SCH (09:10)
[2017-01-05] MEDS: VITAMIN D 1,000 INTERNATIONAL UNITS TABLET PO SCH (09:10)
[2017-01-05] MEDS: MULTIVITAMINS CHILDREN'S CHEWABLE TABLET PO SCH (11:40)
[2017-01-05] MEDS: OLANZapine ORAL DISINTEGRATING TAB 5MG PO SCH (11:40)
[2017-01-05] MEDS: VENLAFAXINE **XR** 75MG CAPSULE PO SCH (11:40)
[2017-01-05 12:00] VITALS: BP 102/70
--- NOTE | 2017-01-05 12:08 | IPNPDOC ---
Text Note Date of Service The patient was seen on 01/05/17. NOTE Subjective: Patient states that he's starting to feel a little better. Attempting to increase his by mouth intake. Objective: Vitals: (see below) General: No acute distress, laying comfortably in bed. Cachectic. HEENT: Moist mucous membranes. Neck: No JVD or lymphadenopathy Cardiac: RRR, No murmurs Pulm: Clear to auscultation b/l. No wheezing, rhonchi Abd: NT/ND + BS. PEG tube in place. No leak. Ext: No edema or cyanosis Labs (see below) Images: Assessment/Plan 1. Hypotension- likely secondary to decreased by mouth intake as well as his opioid medications. On prior admissions he occasionally runs and systolic blood pressure of 90s. Presented here with a blood pressure 80s over 60s. Recently discharged from [facility]. Continue IV fluids and tube feeds. Dietitian consult as patient is malnourished.. Mechanical fall secondary to his episode of hypotension. No fractures. 2. Chronic abdominal pain history of gastric bypass. On opioids. We will consult pain management. 3. Recent esophageal dilatation at [facility] 4. Depression- continue home meds Patient states that he is not been eating because he thought that if he continues to eat, then he will continue to have worsening of his medical problems. He does have chronic abdominal pain after his gastric bypass and PEG tube. States that since his son has just entered college, he wants to get better. Had he will focus more on increasing his by mouth intake, and being more compliant with his tube feeds. DVT prophy: Enoxaparin VS,Fishbone, I+O VS, Fishbone, I+O Laboratory Tests 01/04/17 14:45 Red Blood Count 3.91 L, Mean Corpuscular Volume 93.8, Mean Corpuscular Hemoglobin 30.6, Mean Corpuscular Hemoglobin Concent 32.6, Red Cell Distribution Width 15.7 H, Neutrophils (%) (Auto) 64.0, Lymphocytes (%) (Auto) 21.8 L, Monocytes (%) (Auto) 6.7 H, Eosinophils (%) (Auto) 1.7, Basophils (%) ( Auto) 2.4 H, Neutrophils # (Auto) 2.6, Lymphocytes # (Auto) 0.9 L, Monocytes # ( Auto) 0.3, Eosinophils # (Auto) 0.1, Basophils # (Auto) 0.1, Calcium Level 8.7, Total Creatine Kinase 65 01/05/17 04:24 Red Blood Count 3.35 L, Mean Corpuscular Volume 94.1, Mean Corpuscular Hemoglobin 31.2, Mean Corpuscular Hemoglobin Concent 33.1, Red Cell Distribution Width 15.6 H, Neutrophils (%) (Auto) 56.6, Lymphocytes (%) (Auto) 28.2, Monocytes (%) (Auto) 8.6 H, Eosinophils (%) (Auto) 2.5, Basophils (%) ( Auto) 0.5, Neutrophils # (Auto) 1.9, Lymphocytes # (Auto) 0.9 L, Monocytes # ( Auto) 0.3, Eosinophils # (Auto) 0.1, Basophils # (Auto) 0.0, Calcium Level 8.2 L Vital Signs Date Time Temp Pulse Resp B/P (MAP) Pulse Ox O2 Delivery O2 Flow Rate FiO2 01/05/17 09:09 18 01/05/17 08:00 97.1 69 107/65 (79) 99 Room Air I&O- Last 24 Hours up to 6 AM 01/05/17 05:59 Intake Total 480 ml Output Total 175 ml Balance 305 ml CHAPARRO CHANCE MD Jan 05, 2017 12:08
[2017-01-05 16:00] VITALS: BP 95/61
[2017-01-05] MEDS: VANCOMYCIN ORAL SOL 250MG/5ML ORAL SYRINGE PO SCH (20:07)
[2017-01-05 20:09] VITALS: BP 94/60
--- NOTE | 2017-01-05 20:41 | ECHO ---
DATE OF PROCEDURE: 01/05/2017 REFERRING PHYSICIAN: Jin Cortez MD INDICATION: Syncope. HEIGHT: 180 cm WEIGHT: 55 kg DIMENSIONS: IVS: 0.9 LV: 4.8 LVPW: 0.7 LA: 3.5 Aorta: 2.9 FINDINGS: The study is of fair technical quality. There are good parasternal views, but apical views are very limited and subcostal views are nonexistent. Left ventricle is of normal size and systolic function with estimated ejection fraction (EF) 60-65%. Right ventricle also does not appear enlarged and is normally contractile. Both atria appear normal. Aortic mitral and tricuspid valves appear normal. Pulmonic valve was not well seen. No pericardial effusion is noted. Inferior vena cava was not visualized. Aortic root is normal. Aortic arch and abdominal aorta were not seen. Doppler interrogation reveals no significant aortic valve disease. There is mild mitral insufficiency and mild tricuspid insufficiency. Calculated pulmonary artery pressure is within normal limits assuming normal central venous pressure (CVP). Mitral inflow pattern and tissue Doppler imaging of mitral annulus reveal normal diastolic function of left ventricle (E prime velocities are 5.3 and 12.5 cm/s in septal and lateral mitral annulus). CONCLUSIONS: 1. Study is of fair technical quality. 2. Normal LV size, systolic and diastolic function. 3. No significant valvular disease. 4. Unable to estimate central venous pressure, but probably normal pulmonary artery pressure. COMMENTS: Subacute bacterial endocarditis (SBE) prophylaxis is not recommended. Essentially normal echocardiogram, but for technical limitations of the study. [facility]
[2017-01-06] VITALS (7 sets, daily range): BP systolic 90–109; BP diastolic 58–69
[2017-01-06] MEDS: MORPHINE 2 MG/ML 1ML SYRINGE IV PRN ×5 (00:19→17:58)
[2017-01-06] MEDS: VANCOMYCIN ORAL SOL 250MG/5ML ORAL SYRINGE PO SCH ×3 (00:20→11:59)
[2017-01-06] MEDS: oxyCODONE 5MG TAB PO PRN ×5 (02:44→20:51)
[2017-01-06 07:01] LABS: BASO % 0.8 % (0.0-1.0); EOS # 0.1 K/mm3 (0.0-0.50); EOS % 3.2 % (0.0-3.0); LARGE UNSTAINED CELL # 0.1 K/mm3 (0.0-0.4); LARGE UNSTAINED CELL % 3.7 % (0.0-4.0); LYMPH % 26.1 % (24.0-44.0); MEAN CORPUSCULAR HEMOGLOBIN 31.2 pg (27.0-33.0); MEAN CORPUSCULAR HGB CONC 32.3 g/dl (32.0-36.5); MEAN CORPUSCULAR VOLUME 96.8 fl (80.0-96.0); MONO # 0.3 K/mm3 (0.0-0.8); MONO % 9.5 % (0.0-5.0); NEUTROPHILS # 1.9 K/mm3 (1.8-7.7); NEUTROPHILS % 56.7 % (36.0-66.0); PLATELET COUNT, AUTOMATED 197 k/mm3 (150-450); WHITE BLOOD COUNT 3.3 K/mm3 (4.0-10.0)
[2017-01-06 07:18] LABS: ANION GAP 7 MEQ/L (8-16); BLOOD UREA NITROGEN 13 MG/DL (7-18); CALCIUM LEVEL 8.2 MG/DL (8.5-10.1); CARBON DIOXIDE LEVEL 26 MEQ/L (21-32); CHLORIDE LEVEL 109 MEQ/L (98-107); GLOMERULAR FILTRATION RATE > 60.0 (>56); GLUCOSE, FASTING 78 MG/DL (70-105); POTASSIUM SERUM 4.4 MEQ/L (3.5-5.1); SODIUM LEVEL 142 MEQ/L (136-145)
--- NOTE | 2017-01-06 08:48 | CR ---
DATE OF CONSULTATION: 01/05/2017 REFERRING PROVIDER: Dr. Cortez CHIEF COMPLAINT: 1. Abdominal pain. 2. Chronic narcotic dependence. HISTORY OF PRESENT ILLNESS: Edwar is a 51-year-old gentleman who has had multiple hospital admissions, most recent at [facility] for malnutrition and abdominal pain. This is a complication of gastric bypass surgery in 2012 and chronic back pain diagnosed in 2013. Since that point, he has been on chronic narcotic pain medications for both low back and abdominal pain. Pain medication is prescribed by Dr. Delarosa in [place]. Today, he reports that his pain is well-controlled with intermittent use of IV morphine on top of his usual oxycodone 20 mg every 4 hours as needed which he usually takes four times daily over the past several months. He states that he is in the process of being considered for medical marijuana. Rating pain level as an 8/10. Reporting diarrhea stools and recent diagnosis of Clostridium difficile. PAST MEDICAL HISTORY: 1. Cachexia. 2. Severe protein calorie malnutrition. 3. Kidney stones. 4. Chronic narcotic dependence. 5. 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 6. Chronic hypotension. 7. Chronic abdominal pain after gastric bypass surgery for morbid obesity in 2012. 8. Major depressive disorder. PAST SURGICAL HISTORY: 1. Deysi-En-Y gastrojejunostomy in May 2012. 2. Back surgery 2013. 3. Appendectomy. 4. Cholecystectomy. 5. Right arm tendon repair. 6. Right hand surgery. SOCIAL HISTORY: Lives with his and son locally. Denies alcohol use. Prior history of use of marijuana. Denies IV or other illicit drug use. Smokes a half a pack per day. REVIEW OF SYSTEMS: Cardiac - Denies chest pain. GI - Reporting intermittent episodes of diarrhea. Reporting abdominal pain. - Reporting normal urination. Denies painful urination. Constitutional - Denies recent fever. Reports recent hospitalization at [facility] for weight loss. Musculoskeletal - Chronic low back pain. History of lumbar surgery. ALLERGIES: No known drug allergies. PHYSICAL EXAMINATION: Awake, alert, pleasant. Vital Signs: 98.9, 70, 18, blood pressure (BP) 95/61, O2 sat is 94% on room air. Cardiac: S1-S2, normal rate and rhythm. Abdomen: Multiple dry abdominal dressings with J-tube in place. Bowel sounds active times four quadrants. Nontender with palpation. Cachectic. Inspection of Spine: Tenderness over LS axis and lumbar paraspinals. Well-healed surgical scar LS axis. Extremities: Able to move all extremities times four. Normal sensation in all extremities. No edema. ASSESSMENT: 1. Chronic abdominal pain secondary to complications of surgery. 2. Chronic low back pain/post laminectomy pain syndrome. 3. Chronic narcotic dependence for chronic pain. PLAN: Recommend continuing with the current medications for chronic pain with the addition of p.r.n. IV morphine. Blood pressure is of concern, but this is within his normal usual low range over the year. Encourage evaluation for medical marijuana in hopes to decrease and possibly discontinue chronic narcotic pain medications. PHILIPD
[2017-01-06] MEDS: SUCRALFATE SUSP 1GM/10ML UD PO SCH ×4 (08:54→20:50)
[2017-01-06] MEDS: D5W/0.9% SODIUM CHLORIDE 1,000 ML IV SCH (08:54)
[2017-01-06] MEDS: VITAMIN D 1,000 INTERNATIONAL UNITS TABLET PO SCH (10:08)
[2017-01-06] MEDS: OLANZapine ORAL DISINTEGRATING TAB 5MG PO SCH (10:09)
[2017-01-06] MEDS: OMEPRAZOLE 20 MG CAP PO SCH (10:09)
[2017-01-06] MEDS: VENLAFAXINE **XR** 75MG CAPSULE PO SCH (10:09)
[2017-01-06] MEDS: MULTIVITAMINS CHILDREN'S CHEWABLE TABLET PO SCH (10:09)
[2017-01-06] MEDS: ENOXAPARIN 40 MG/0.4 ML SYRINGE (J1650) SC SCH (10:09)
[2017-01-06] MEDS: OYSTER SHELL CALCIUM 500 MG TAB PO SCH ×2 (10:09→20:50)
[2017-01-06] MEDS: FERROUS SULFATE 325MG TAB PO SCH (10:09)
[2017-01-06] MEDS: CYANOCOBALAMIN 500 MCG TAB PO SCH (10:09)
[2017-01-06] MEDS: LACTOBACILLUS ACIDOPHILUS CAP (BACID) PEG SCH ×2 (16:28→20:50)
[2017-01-06] MEDS ORDERED: MOM 30ML SUSPENSION UDC PEG ONE (16:30)
--- NOTE | 2017-01-06 21:29 | IPN ---
DATE: 01/06/2017 Patient seen and examined. Tolerating tube feeding. Denies any chest pain, pressure, discomfort. Continues to have abdominal pain and diarrhea of three to four episodes over the last 24 hours. VITAL SIGNS: Temperature 98.3, pulse 70, respiratory rate 18,blood pressure 103/69l pulse ox 98% on room air. LABORATORY DATA: WBC 3.3, H H 9.7/30, platelets 197. Chemistry: Sodium 142, potassium 4.4, chloride 109,bicarbonate 26, BUN 13, creatinine 0.4. PHYSICAL EXAMINATION: GENERAL: Patient in no acute distress, frail, cachectic. HEENT: Normocephalic, atraumatic, moist mucous membranes. NECK: Supple, no jugular venous distention. CARDIAC: Regular rate and rhythm. Normal S1, S2. PULMONARY: Bilaterally clear to auscultation. No wheezing, rales or rhonchi. ABDOMEN: Soft, diffusely tender. No rebound or guarding. Percutaneous endoscopic gastrostomy tube in place. EXTREMITIES: No clubbing, cyanosis, and edema. ASSESSMENT AND PLAN: This is a 51-year-old male patient with underlying medical history of gastric bypass 2012, back surgery July 2013, appendectomy, cholecystectomy, tube feeding with severe protein calorie malnutrition, right arm tendon repair with chronic abdominal pain presented with presyncopal episode and hypotension. PROBLEM: 1. Hypotension and presyncope likely secondary to decreased oral intake and opiate use. Baseline blood pressure is low. Patient recently discharged from [facility]. IV fluids has been provided. Continue tube feeding. Patient blood pressure much improved. Nutrition consultation. Physical therapy. No fractures. 2. Chronic abdominal pain. History of gastric bypass. Pain management consulted. Follow up pain management recommendation. Continue current medication. 3. Recent esophageal dilatation at [facility]. Attempted to page [facility], Dr. Burnett covering physician. 4. C. difficile. Consulted infectious disease as well as gastroenterology preparing for possible stool transplant. 5. Depression. Continue current medication. 6. Protein calorie malnutrition. Continue tube feeding along with oral supplementation. 7. Deep vein thrombosis prophylaxis. Lovenox subcutaneous. DISPOSITION: Pending physical therapy. Clinical improvement and possible stool transplant.
[2017-01-07 00:39] VITALS: BP 96/60
[2017-01-07] MEDS: MORPHINE 2 MG/ML 1ML SYRINGE IV PRN ×2 (00:43→08:30)
[2017-01-07 04:46] VITALS: BP 103/68
[2017-01-07 06:10] LABS: BASO % 0.3 % (0.0-1.0); EOS # 0.1 K/mm3 (0.0-0.50); EOS % 1.9 % (0.0-3.0); LARGE UNSTAINED CELL # 0.1 K/mm3 (0.0-0.4); LARGE UNSTAINED CELL % 1.3 % (0.0-4.0); LYMPH # 0.6 K/mm3 (1.5-4.5); LYMPH % 11.4 % (24.0-44.0); MEAN CORPUSCULAR HEMOGLOBIN 31.5 pg (27.0-33.0); MEAN CORPUSCULAR HGB CONC 33.2 g/dl (32.0-36.5); MEAN CORPUSCULAR VOLUME 94.8 fl (80.0-96.0); MONO # 0.3 K/mm3 (0.0-0.8); MONO % 6.5 % (0.0-5.0); NEUTROPHILS % 78.5 % (36.0-66.0); PLATELET COUNT, AUTOMATED 189 k/mm3 (150-450); RED CELL DISTRIBUTION WIDTH 15.5 % (11.5-14.5); WHITE BLOOD COUNT 5.1 K/mm3 (4.0-10.0)
[2017-01-07 06:22] LABS: ANION GAP 5 MEQ/L (8-16); BLOOD UREA NITROGEN 14 MG/DL (7-18); CALCIUM LEVEL 8.2 MG/DL (8.5-10.1); CARBON DIOXIDE LEVEL 31 MEQ/L (21-32); CHLORIDE LEVEL 104 MEQ/L (98-107); CREATININE FOR GFR 0.51 MG/DL (0.70-1.30); GLOMERULAR FILTRATION RATE > 60.0 (>56); GLUCOSE, FASTING 88 MG/DL (70-105); POTASSIUM SERUM 4.5 MEQ/L (3.5-5.1); SODIUM LEVEL 140 MEQ/L (136-145)
[2017-01-07] MEDS: oxyCODONE 5MG TAB PO PRN ×4 (06:22→21:05)
[2017-01-07 08:00] VITALS: BP 96/62
[2017-01-07] MEDS: SUCRALFATE SUSP 1GM/10ML UD PO SCH ×4 (08:30→21:05)
[2017-01-07] MEDS: CYANOCOBALAMIN 500 MCG TAB PO SCH (08:30)
[2017-01-07] MEDS: LACTOBACILLUS ACIDOPHILUS CAP (BACID) PEG SCH ×3 (08:30→21:05)
[2017-01-07] MEDS: ENOXAPARIN 40 MG/0.4 ML SYRINGE (J1650) SC SCH (08:30)
[2017-01-07] MEDS: OMEPRAZOLE 20 MG CAP PO SCH (08:31)
[2017-01-07] MEDS: OYSTER SHELL CALCIUM 500 MG TAB PO SCH ×2 (08:31→21:06)
[2017-01-07] MEDS: VITAMIN D 1,000 INTERNATIONAL UNITS TABLET PO SCH ×2 (08:31→10:28)
[2017-01-07] MEDS: FERROUS SULFATE 325MG TAB PO SCH (08:31)
[2017-01-07] MEDS: OLANZapine ORAL DISINTEGRATING TAB 5MG PO SCH (10:28)
[2017-01-07] MEDS: MULTIVITAMINS CHILDREN'S CHEWABLE TABLET PO SCH (10:28)
[2017-01-07] MEDS: VENLAFAXINE **XR** 75MG CAPSULE PO SCH (10:29)
[2017-01-07 12:00] VITALS: BP_SYST 92; BP_SYST 97; BP_DIAS 63; BP_DIAS 64; BP_DIAS 68
[2017-01-07] MEDS ORDERED: FECAL MICROBIOTA PREPARATION 30 ML BTL (J3590) XX ONE (12:00)
[2017-01-07 16:00] VITALS: BP 105/58
[2017-01-07 20:00] VITALS: BP_SYST 128; BP_SYST 96; BP_SYST 97; BP_SYST 99; BP_DIAS 58; BP_DIAS 61
[2017-01-08] VITALS: BP 109/64
[2017-01-08 04:00] VITALS: BP 102/64
[2017-01-08] MEDS: oxyCODONE 5MG TAB PO PRN ×3 (04:02→20:12)
[2017-01-08 06:14] LABS: BASO % 0.2 % (0.0-1.0); EOS # 0.1 K/mm3 (0.0-0.50); EOS % 1.3 % (0.0-3.0); LARGE UNSTAINED CELL # 0.1 K/mm3 (0.0-0.4); LARGE UNSTAINED CELL % 1.3 % (0.0-4.0); LYMPH # 0.7 K/mm3 (1.5-4.5); LYMPH % 7.8 % (24.0-44.0); MEAN CORPUSCULAR HEMOGLOBIN 31.3 pg (27.0-33.0); MEAN CORPUSCULAR HGB CONC 33.3 g/dl (32.0-36.5); MEAN CORPUSCULAR VOLUME 93.9 fl (80.0-96.0); MONO # 0.4 K/mm3 (0.0-0.8); MONO % 4.5 % (0.0-5.0); NEUTROPHILS # 6.6 K/mm3 (1.8-7.7); NEUTROPHILS % 84.9 % (36.0-66.0); PLATELET COUNT, AUTOMATED 187 k/mm3 (150-450); RED CELL DISTRIBUTION WIDTH 15.2 % (11.5-14.5); WHITE BLOOD COUNT 7.8 K/mm3 (4.0-10.0)
[2017-01-08 06:19] LABS: ANION GAP 5 MEQ/L (8-16); BLOOD UREA NITROGEN 12 MG/DL (7-18); CALCIUM LEVEL 8.2 MG/DL (8.5-10.1); CARBON DIOXIDE LEVEL 33 MEQ/L (21-32); CHLORIDE LEVEL 99 MEQ/L (98-107); CREATININE FOR GFR 0.48 MG/DL (0.70-1.30); GLOMERULAR FILTRATION RATE > 60.0 (>56); GLUCOSE, FASTING 97 MG/DL (70-105); POTASSIUM SERUM 4.4 MEQ/L (3.5-5.1); SODIUM LEVEL 137 MEQ/L (136-145)
[2017-01-08 08:00] VITALS: BP 97/61
[2017-01-08] MEDS: LACTOBACILLUS ACIDOPHILUS CAP (BACID) PEG SCH ×3 (09:51→20:11)
[2017-01-08] MEDS: SUCRALFATE SUSP 1GM/10ML UD PO SCH ×4 (09:52→20:11)
[2017-01-08] MEDS: MULTIVITAMINS CHILDREN'S CHEWABLE TABLET PO SCH (09:53)
[2017-01-08] MEDS: OYSTER SHELL CALCIUM 500 MG TAB PO SCH ×2 (09:53→20:12)
[2017-01-08] MEDS: FERROUS SULFATE 325MG TAB PO SCH (09:53)
[2017-01-08] MEDS: VENLAFAXINE **XR** 75MG CAPSULE PO SCH (09:53)
[2017-01-08] MEDS: OMEPRAZOLE 20 MG CAP PO SCH (09:54)
[2017-01-08] MEDS: ENOXAPARIN 40 MG/0.4 ML SYRINGE (J1650) SC SCH (09:55)
[2017-01-08] MEDS: OLANZapine ORAL DISINTEGRATING TAB 5MG PO SCH (09:55)
[2017-01-08] MEDS: CYANOCOBALAMIN 500 MCG TAB PO SCH (09:55)
[2017-01-08 12:00] VITALS: BP_SYST 95; BP_SYST 98; BP_SYST 99; BP_DIAS 45; BP_DIAS 54; BP_DIAS 59
[2017-01-08] MEDS: MORPHINE 2 MG/ML 1ML SYRINGE IV PRN (12:56)
--- NOTE | 2017-01-08 13:16 | IPN ---
DATE OF SERVICE: 01/07/2017 Patient seen and examined. No acute events overnight. Tube feeding with oral supplementation. Denies any chest pain, pressure or discomfort. Chronic abdominal pain continues to persist. VITAL SIGNS: Temperature 99.7, pulse 75, respiratory rate 18, blood pressure 105/58, pulse oximetry 96% on room air. WBC 5.1, hemoglobin and hematocrit 9.8/29.6, platelets 189. Sodium 140, potassium 4.5, chloride 104, bicarbonate 31, BUN 14, creatinine 0.51. PHYSICAL EXAMINATION: GENERAL: Patient alert, oriented times three, in no acute distress. HEENT: Normocephalic, atraumatic. Patient cachectic. Moist mucous membrane. NECK: Supple. No jugular venous distention (JVD). CARDIAC: Regular rate and rhythm. Normal S1, S2. PULMONARY: Bilateral clear to auscultation. No wheeze, rales or rhonchi. ABDOMEN: Soft, diffusely tender. No rebound. No guarding. Percutaneous endoscopic gastrostomy (PEG) in place. EXTREMITIES: No clubbing, cyanosis or edema. ASSESSMENT AND PLAN: This is a 51-year-old male patient with underlying medical history of gastric bypass 2012, back surgery 2013, appendectomy, cholecystectomy, tube feeding with severe protein calorie malnutrition, right arm tendon repair and chronic abdominal pain presented with presyncopal episode and hypotension. PROBLEM: 1. Presyncopal episode, hypotension. Patient chronically hypotensive secondary to decreased oral intake and opiate use. Baseline blood pressure is low. Patient recently discharged from [facility]. Intravenous (IV) fluids has been provided. Continue tube feeding. Patient blood pressure has much improved. Nutrition consultation. Physical therapy. No fractures found. 2. Chronic abdominal pain. History of gastric bypass. Pain management has been consulted. Continue current pain regimen. Once patient's condition stabilize, will consider starting Marinol. Continue current medication. 3. Recent esophageal dilatation at [facility]. Initially patient's surgery was done by Dr. Delarosa. Paged Dr. Reyna covering for Dr. Delarosa to discuss the case. 4. Clostridium (C) difficile. 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 Please discuss with Dr. Reyna from [facility]. Okay to use PEG tube for stool transplant. 5. Depression. Continue current medication. 6. Severe protein calorie malnutrition with weight loss. Continue tube feeding along with oral supplementation. Will consider starting Marinol. 7. Deep vein thrombosis prophylaxis. Lovenox subcu. DISPOSITION/PLANNING: Pending clinical improvement, physical therapy, stool transplant.
[2017-01-08 14:30] VITALS: BP 99/63
--- NOTE | 2017-01-08 18:06 | IPN ---
DATE: 01/08/2017 The patient is seen and examined. No acute events overnight. Denies any chest pain, pressure or discomfort. Tolerating tube feeding and oral feeding. Reported diarrhea has improved. VITAL SIGNS: Temperature 98.2, pulse 87, respiratory rate 16, blood pressure 99/63, pulse oximetry 95% on room air. LABORATORY DATA: WBC 7.8, hemoglobin and hematocrit 9.9/29.6, platelets 187. Chemistry: Sodium 137, potassium 4.4, chloride 99, bicarbonate 33, BUN 12, creatinine 0.48. PHYSICAL EXAMINATION: GENERAL: Patient cachectic, alert and oriented times three, in no acute distress. HEENT: Normocephalic, atraumatic. Moist mucous membranes. NECK: Supple. CARDIAC: Regular rate and rhythm with normal S1, S2. PULMONARY: Bilaterally clear to auscultation. No wheeze, rales or rhonchi. ABDOMEN: Diffusely tender, soft. No rebound. No guarding. Percutaneous endoscopic gastrostomy (PEG) in place, clean, dry and intact. EXTREMITIES: No clubbing, cyanosis or edema. ASSESSMENT AND PLAN: This is a 51-year-old male patient with underlying medical history of gastric bypass in 2012, back surgery in July of 2013, appendectomy, cholecystectomy, tube feeding for severe protein-calorie malnutrition, right arm tendon repair, chronic abdominal pain who presented with presyncopal episode and hypotension. PROBLEMS: 1. Presyncopal episode. Patient chronically hypotensive secondary to decreased oral intake. Baseline blood pressure is low for the patient. Patient recently discharged from [facility] with esophageal dilatation and also new percutaneous endoscopic gastrostomy (PEG) tube placement. IV fluids have been provided. Continue tube feeding. Patient's blood pressure has improved. Nutrition consulted. Physical therapy. No fractures were found on exam. Physical therapy was done. 2. Chronic abdominal pain. Patient has a history of gastric bypass. Pain management has been consulted. Continue pain regimen as ordered. 3. Recent esophageal dilatation at [facility]. Initially, patient's surgery was done by Dr. Delarosa. Case discussed with Dr. Reyna covering for Dr. Delarosa. 4. Clostridium (C) difficile. 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 Status post stool transplant. Case also discussed with Dr. Reyna who is agreeable to the use of PEG tube for stool transplantation. 5. Depression. Continue current medication. 6. Severe protein-calorie malnutrition with weight loss. Continue tube feeding along with oral supplementation. We will consider starting Marinol if the patient does not improve. 7. Deep vein thrombosis (DVT) prophylaxis. Lovenox subcutaneous. DISPOSITION: Patient currently is making more formed stool. Physical therapy appreciated. Status post stool transplant. Likely discharge in the next 24-48 hours.
[2017-01-08 22:00] VITALS: BP 106/66
[2017-01-09] MEDS: oxyCODONE 5MG TAB PO PRN (01:29)
[2017-01-09 06:00] VITALS: BP 109/70
[2017-01-09 06:23] LABS: BASO % 0.2 % (0.0-1.0); EOS # 0.1 K/mm3 (0.0-0.50); EOS % 1.4 % (0.0-3.0); LARGE UNSTAINED CELL # 0.1 K/mm3 (0.0-0.4); LARGE UNSTAINED CELL % 1.2 % (0.0-4.0); LYMPH # 0.8 K/mm3 (1.5-4.5); LYMPH % 7.1 % (24.0-44.0); MEAN CORPUSCULAR HEMOGLOBIN 31.2 pg (27.0-33.0); MEAN CORPUSCULAR HGB CONC 33.1 g/dl (32.0-36.5); MEAN CORPUSCULAR VOLUME 94.3 fl (80.0-96.0); MONO # 0.4 K/mm3 (0.0-0.8); MONO % 4.2 % (0.0-5.0); NEUTROPHILS # 8.1 K/mm3 (1.8-7.7); PLATELET COUNT, AUTOMATED 205 k/mm3 (150-450); RED CELL DISTRIBUTION WIDTH 15.2 % (11.5-14.5); WHITE BLOOD COUNT 9.4 K/mm3 (4.0-10.0)
[2017-01-09 06:47] LABS: ANION GAP 8 MEQ/L (8-16); BLOOD UREA NITROGEN 12 MG/DL (7-18); CALCIUM LEVEL 8.2 MG/DL (8.5-10.1); CARBON DIOXIDE LEVEL 32 MEQ/L (21-32); CHLORIDE LEVEL 98 MEQ/L (98-107); CREATININE FOR GFR 0.46 MG/DL (0.70-1.30); GLOMERULAR FILTRATION RATE > 60.0 (>56); GLUCOSE, FASTING 103 MG/DL (70-105); POTASSIUM SERUM 4.4 MEQ/L (3.5-5.1); SODIUM LEVEL 138 MEQ/L (136-145)
[2017-01-09] MEDS: OMEPRAZOLE 20 MG CAP PO SCH (09:14)
[2017-01-09] MEDS: FERROUS SULFATE 325MG TAB PO SCH (09:14)
[2017-01-09] MEDS: VITAMIN D 1,000 INTERNATIONAL UNITS TABLET PO SCH (09:14)
[2017-01-09] MEDS: VENLAFAXINE **XR** 75MG CAPSULE PO SCH (09:14)
[2017-01-09] MEDS: OYSTER SHELL CALCIUM 500 MG TAB PO SCH (09:14)
[2017-01-09] MEDS: LACTOBACILLUS ACIDOPHILUS CAP (BACID) PEG SCH (09:14)
[2017-01-09] MEDS: OLANZapine ORAL DISINTEGRATING TAB 5MG PO SCH (09:14)
[2017-01-09] MEDS: CYANOCOBALAMIN 500 MCG TAB PO SCH (09:14)
[2017-01-09] MEDS: MULTIVITAMINS CHILDREN'S CHEWABLE TABLET PO SCH (09:15)
[2017-01-09] MEDS: SUCRALFATE SUSP 1GM/10ML UD PO SCH ×2 (09:15→12:57)
[2017-01-09] MEDS: ENOXAPARIN 40 MG/0.4 ML SYRINGE (J1650) SC SCH (09:15)
[2017-01-09] MEDS ORDERED: RISATAB3 PEG (12:54)
--- NOTE | 2017-01-09 14:45 | CR ---
DATE OF CONSULTATION: REQUESTING PHYSICIAN: Dr. 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 HISTORY OF PRESENT ILLNESS: Mr. Stokes is a 51-year-old gentleman well known to us from multiple admissions. He was hospitalized at [facility] on 12/19 with failure to thrive, diarrhea and chronic pain. The patient was there for 2 weeks and he was discharged on 01/02. The patient was seen by his surgeon, Dr. Virgil Delarosa, who had done his laparoscopic Deysi-en-Y gastric bypass in May 2012. The patient has had multiple admissions with complications with failure to thrive. The patient also was having difficulty with dysphagia and therefore had an endoscopy, which showed an esophageal stricture, which required dilatation and that was done on 12/29. He states that he did not have significant diarrhea while he was at [facility]. He is not sure if he was being treated with vancomycin. The patient is on tube feeds, but also is able to eat but many times whatever he eats comes back up 5 or 6 hours later because it does not go through his stomach. The patient has severe malnutrition. PAST MEDICAL HISTORY: Significant for gastric bypass, history of morbid obesity, currently in malnutrition, history of depression. He was seen in psychiatric consultation at [facility] for depression and failure to thrive. His psychiatric medications were adjusted by Dr. Richard on 12/24, who recommended restarting Zyprexa. He was also seen by psychology. He did well after his endoscopy and went home for a couple of days, was going for a walk and fell down the stairs, landed on his side, shoulder and head were hurting and therefore his family brought him to the emergency room. When he was asked about his diarrhea, he stated that his diarrhea had recurred and therefore stool was sent for C diff and that was positive. The patient was restarted on vancomycin. On 08/01/2016, stool for C diff was positive, 08/30/2016 C diff was positive again, 09/10/2016 C diff negative, 10/12/2016 the patient came to the emergency room and had blood cultures done, two sets were negative. He left against medical advice on 10/14/2016. 01/05/2017 stool for C diff was positive. In between each admission to [facility], he had another admission in [place]. PHYSICAL EXAMINATION: He is a chronically ill looking gentleman in no acute distress. HEART: Normal S1, S2 with no murmurs, rubs or gallops. LUNGS: Clear. No wheezes, rales or rhonchi. ABDOMEN: Soft, nontender. No hepatosplenomegaly. G tube was changed during this current admission. There is no surrounding erythema. EXTREMITIES: No clubbing, cyanosis or edema. No calf tenderness. NEUROLOGIC: Exam is normal. MEDICATIONS: - oxycodone as needed - Carafate - omeprazole - vancomycin 125 mg by mouth every 6 hours IMPRESSION: This is a 51-year-old gentleman with gastric bypass who has had recurrent C difficile colitis documented at [facility] at least three time and a couple more times at [facility], requiring admission. He has discussed with his surgeon Dr. Delarosa having a stool transplant but according to the patient this was not done during this previous admission for the past 2 weeks because diarrhea was not his major problem. This is a documented therapy at [facility] and therefore the patient would be a good candidate for stool transplantation. This could be given through his G tube or through colonoscopy, probably a G-tube would be less risky, but sometimes colonoscopies are a better route. IMPRESSION: 1. Discontinue oral vancomycin, give milk of magnesia to help with preparation and give rid of vancomycin, consult GI, Dr. Minaya or Dr. Sethi, for stool transplantation. I will discuss the case with his surgeon, Dr. Delarosa, before doing the transplantation just to give him heads up and make sure that he agrees with a gastric route versus a colonoscopy. Thank you for consultation.
--- NOTE | 2017-01-11 13:54 | IPN ---
DATE: 01/09/2017 Nurses with concern were concerned today. This morning the patient was found to have some narcotics in his hand. He took 2 pills and he was looking for the rest of the two other pills. Stating that his was out side in his child and his son but they were not that at the hospital. He was to his irritable and angry. When I saw him later the patient was normal, alert, and oriented times three. He denied being confused. He did not recall much of the event. His and she stated that he was not confused for her, that has occurred earlier in the morning. He denied any headache, neck stiffness. No diarrhea, nausea or vomiting. He had a stool transplantation done through his G tube and the patient was able to tell me that. T-max 99.7, pulse 84, respirations 20, blood pressure 109/70, O2 sat 96% on room air. Heart: Normal S1-S2. No murmurs. Lungs are has few exterior wheezes but good air entry. Abdomen is soft, nontender. Extremities: Emaciated trace edema. The patient has had no bowel movements in the past 2 days. IMPRESSION: 1. 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 The patient had no bowel movements in 2 days. He is off any medication. He was encouraged to take probiotics and drink Kefir which is still is healthy probiotics. 2. Episode of confusion could be related to medication that he had in his room that has resolved. PLAN: The patient could be discontinued, discharged home from an infectious disease standpoint. His feels pretty comfortable with that and the patient is adamant to be leaving at 1 o'clock LABORATORY DATA: White count is 9.4, hemoglobin 10.1, hematocrit 30.5, platelets 205. Sodium 138, potassium 4.4, chloride 98, bicarb 32, BUN 12, creatinine 0.46, glucose 103, calcium 8.2, prealbumin 14.3.
--- NOTE | 2017-01-11 22:18 | DSES ---
DATE OF ADMISSION: 01/06/2017 DATE OF DISCHARGE: 01/09/2017 PRIMARY CARE PROVIDER: Cedric Marrero MD FAGOT HEATER: Armond Minaya MD BARIATRIC SURGEON: Virgil Delarosa DO INFECTIOUS DISEASE: Khoa Benavides MD PAIN MANAGEMENT: Cristina Feng NP FINAL DIAGNOSES: 1. Clostridium (C) difficile colitis. 2. Presyncope, secondary to dehydration. 3. Chronic abdominal pain. 4. Recent esophageal dilatation at [facility]. 5. Depression. 6. Severe protein calorie malnutrition with weight loss. HISTORY OF PRESENT ILLNESS: This is a 51-year-old male patient with underlying medical history of gastric bypass in 2012, with obesity in the past when patient weighed 398 pounds, patient did well for a few months after surgery and then had back surgery for chronic back pain and disc disease in 2013, after that patient developed complications related to the gastric bypass, inability to tolerate food, requiring total parenteral nutrition (TPN) as well as extreme weight loss requiring tube feeding placement. Since then, patient has been having chronic intermittent abdominal pain with diarrhea which has been an ongoing issue. Has been recently admitted to [facility] for 2 weeks for similar symptoms and has been undergoing esophageal dilatation as well as changing his tube feedings to a bigger size as he is found to be very malnourished with weight of only 107. The patient's tube feeding has also been changed to Jevity 2 Madan at a rate of 80 mL/hour. Patient was tolerating tube feeding and was discharged on 01/03/2017. Patient also has a history of multiple C. difficile. Came back home to set up his tube feeding and was working, but patient woke up and wanted to go out of his house to visit a neighbor and felt dizzy and lightheaded and fell down his front stairs, which he thinks was about 3-4 steps, having some injuries on his elbows and knees. Patient was brought to the emergency room. In the emergency department (ED), a CT of the head was done. Did not show any acute intracranial pathology and has some bruising and laceration of the elbows and some superficial abrasion of the patient's left knee without any evidence of fracture. The patient was dizzy and blood pressure was on the borderline low side. IV fluids were given. HOSPITAL COURSE: Patient was admitted to the hospital. Gastrointestinal (GI) panel was sent. IV fluids were given. Pain management was consulted. The patient was started back on tube feedings. The patient was found to have C. difficile. Initially, vancomycin was started, but after discussing with Dr. Benavides of infectious disease, patient might benefit from a stool transplant. Given patient has a percutaneous endoscopic gastrostomy (PEG) tube, discussed with Dr. Reyna, who is covering for Dr. Delarosa. It is okay to use the PEG tube for stool transplant. Subsequently, visiting nurse, Dr. Armond Minaya, is consulted for stool transplantation which was done. Patient's diarrhea has improved afterwards. Tolerating tube feeding along with oral intake. Currently, patient is comfortable, passed physical therapy, on tube feedings and oral intake, ready for discharge with further care as outpatient. VITAL SIGNS: Temperature 99, pulse 84, respirations 20, blood pressure 109/70, pulse oximetry 96% on room air. GENERAL: Patient cachectic, comfortable, in no acute distress. HEENT: Normocephalic, atraumatic. PULMONARY: Bilaterally clear to auscultation. No wheezes, rales, or rhonchi. CARDIAC: Regular rate and rhythm. Normal S1, S2. ABDOMEN: Soft. Minimum tenderness noted on guarding. Positive bowel sounds. PEG tube clean, dry, and intact. EXTREMITIES: No clubbing, cyanosis, or edema. LABORATORY DATA: WBC 9.4, hemoglobin and hematocrit 10.1/30.5, platelets 205. Chemistry: Sodium 138, potassium 4.4, chloride 98, bicarbonate 32, BUN 12, creatinine 0.46. DISCHARGE MEDICATIONS: - Bacid one tablet via PEG three times a day Patient's home medication of: - vitamin D 2000 units by mouth daily - vitamin B12 500 mcg by mouth daily - iron 325 mg by mouth daily - multivitamin one tablet by mouth daily - olanzapine 5 mg by mouth daily - omeprazole 40 mg by mouth daily - Zofran 4 mg by mouth every 4 hours as needed for nausea - oxycodone 20 mg by mouth every 4 hours as needed - Os-Madan 500 mg by mouth twice a day - Senna 8.6 mg by mouth daily - Carafate 10 mL by mouth four times a day - venlafaxine 150 mg by mouth daily - zinc gluconate 100 mg by mouth daily were continued. DISCHARGE INSTRUCTIONS: Patient was instructed to followup with primary care provider in 7 days and followup with bariatric surgery, Dr. Delarosa, in 10 days. Return to the hospital if symptoms worsen. Continue tube feedings.
[2017-03-18] MEDS ORDERED: K-TA1TAB PO (08:37)
[2017-03-18] MEDS ORDERED: VANC125C2 PO (08:41)
[2017-03-26] MEDS ORDERED: FLAG500T PO (09:00)
[2017-03-28] MEDS ORDERED: VANC125C2 PO (13:36)
[2017-03-28] MEDS ORDERED: POTA20TA PO (13:36)
[2017-03-28] MEDS ORDERED: METR1TAB66 PO (13:36)
== END 2017-01-09 14:11 | disposition home or self-care (01) | DRG 248 ==
LOC: M ED 14:18 → M ED INP 22:32 → M PCU 23:41 → OBSVTOIN 01-06 16:12 → M MSPAV 01-08 14:28
PROVIDERS: ADMIT Internal Medicine Nephrology; ATTEND Hospitalist
DX: A04.7 Enterocolitis due to Clostridium difficile (principal); E43 Unspecified severe protein-calorie malnutrition; I95.9 Hypotension, unspecified; R55 Syncope and collapse; Z93.1 Gastrostomy status; F11.20 Opioid dependence, uncomplicated; F32.9 Major depressive disorder, single episode, unspecified; R10.9 Unspecified abdominal pain; Z98.84 Bariatric surgery status; Z79.899 Other long term (current) drug therapy; M96.1 Postlaminectomy syndrome, not elsewhere classified; F17.200 Nicotine dependence, unspecified, uncomplicated

== ENCOUNTER 2017-01-15 17:32 | Emergency (ER) | payer MEDICARE, OTHER ==
[~2017-01-15] VITALS: Ht 180.3 cm; Wt 54.0 kg
[~2017-01-15 17:32] MED LIST changes: +IRON65TA PO; +OLAN5ZYD PO; +RISATAB3 PEG; +SENN8.6C PO; +VENL150C43 PO; +ZINC100T4 PO
[2017-01-15] MEDS ORDERED: oxyCODONE 5MG TAB PO ONE (18:30)
[2017-01-15] MEDS ORDERED: NS 500 ML IV ONE (18:30)
[2017-01-15 19:35] LABS: ADD MANUAL DIFFER YES; DIFF SLIDE NUMBER 311; MEAN CORPUSCULAR HEMOGLOBIN 30.7 pg (27.0-33.0); MEAN CORPUSCULAR HGB CONC 34.2 g/dl (32.0-36.5); MEAN CORPUSCULAR VOLUME 89.9 fl (80.0-96.0); PLATELET COUNT, AUTOMATED 400 k/mm3 (150-450); RED CELL DISTRIBUTION WIDTH 14.3 % (11.5-14.5); WHITE BLOOD COUNT 20.4 K/mm3 (4.0-10.0)
[2017-01-15 19:48] LABS: ALBUMIN 2.6 GM/DL (3.2-5.2); ALBUMIN/GLOBULIN RATIO 0.55 (1.00-1.93); ALKALINE PHOSPHATASE 112 U/L (45-117); ALT/SGPT 34 U/L (12-78); ANION GAP 11 MEQ/L (8-16); AST/SGOT 21 U/L (15-37); BILIRUBIN,DIRECT 0.3 MG/DL (0.0-0.2); BILIRUBIN,TOTAL 0.6 MG/DL (0.2-1.0); BLOOD UREA NITROGEN 26 MG/DL (7-18); CALCIUM LEVEL 8.2 MG/DL (8.5-10.1); CARBON DIOXIDE LEVEL 23 MEQ/L (21-32); CHLORIDE LEVEL 102 MEQ/L (98-107); CREATININE FOR GFR 0.66 MG/DL (0.70-1.30); GLOMERULAR FILTRATION RATE > 60.0 (>56); GLUCOSE, FASTING 101 MG/DL (70-105); POTASSIUM SERUM 4.1 MEQ/L (3.5-5.1); SODIUM LEVEL 136 MEQ/L (136-145); TOTAL PROTEIN 7.3 GM/DL (6.4-8.2)
[2017-01-15] MEDS ORDERED: NS 1,000 ML IV SCH (20:00)
[2017-01-15] MEDS ORDERED: MORPHINE 2 MG/ML 1ML SYRINGE IV ONE (20:00)
[2017-01-15] MEDS ORDERED: ISOVUE-370 76% 100ML VIAL (Q9967) As Ordered ONE (20:24)
[2017-01-15] MEDS ORDERED: MORPHINE 4 MG/ML 1ML SYRINGE IV ONE ×2 (21:00→22:15)
--- NOTE | 2017-01-15 22:00 | REPUSA ---
CT of the abdomen and pelvis with contrast Clinical statement: Pain. Vomiting. Technique: Multiple axial CT images were obtained from the base of the lungs through the floor of the pelvis utilizing 5 mm axial slices after administration of nonionic intravenous contrast. Coronal an d sagittal reconstructions were also obtained. Comparison: 10/23/2016. Findings: Chest: There is a right lower lobe infiltrate. Abdomen: There is a large amount of free air under the diaphragms bilaterally. The liver, spleen, bailey creas, and adrenal glands are unremarkable. A 1 cm simple cyst is seen in the medial left kidney. The re is a 9 mm nonobstructing stone in the right renal collecting system. The aorta is within normal li mits. There is no evidence of abdominal lymphadenopathy. There is a small amount of abdominal ascites . Percutaneous gastrostomy tube is in place. Pelvis: The small bowel demonstrates diffuse ill-defined bowel wall thickening. There is no focal mc dence of bowel obstruction however. The urinary bladder is within normal limits. The other pelvic str uctures appear grossly intact. There is no evidence of pelvic lymphadenopathy. There is moderate amou nt of pelvic ascites. Bones: There are no suspicious osseous abnormalities seen. Surgical fusion changes at L5/S1 are intac t. Impression: 1. Large amount of free air under the diaphragm bilaterally, with scattered free air throughout the u pper abdomen. The exact source of this intraperitoneal free air is uncertain, but likely from surgica l changes. 2. Diffuse small bowel wall thickening throughout the abdomen and pelvis with was not seen on the guy or study. This could represent infectious or inflammatory processes. There is no focal evidence of stephanie wel obstruction at this time. 3. Right lower lobe infiltrate suspicious for pneumonia. 4. Nonobstructing right renal nephrolithiasis. Simple left renal cyst. 5. Moderate amount of abdominal and pelvic ascites as described. Dr. Spencer was notified of these findings at 9:52 PM on 01/15/2017.
[2017-01-15] MEDS ORDERED: PIPERACILLIN/TAZOBACTAM SOD 4.5 GM in D5W MINI-BAG PLUS 50 ML IV ONE (22:45)
[2017-01-15] MEDS ORDERED: VANCOMYCIN HCL 1,000 MG, VIAL MATE ADAPTER 1 EACH in D5W 250 ML IV ONE (23:45)
[2017-01-16] MEDS ORDERED: MORPHINE 4 MG/ML 1ML SYRINGE IV ONE ×2 (01:00)
[2017-01-16 01:15] VITALS: BP 111/66
[2017-03-18] MEDS ORDERED: K-TA1TAB PO (08:37)
[2017-03-18] MEDS ORDERED: VANC125C2 PO (08:41)
[2017-03-26] MEDS ORDERED: FLAG500T PO (09:00)
[2017-03-28] MEDS ORDERED: METR1TAB66 PO (13:36)
[2017-03-28] MEDS ORDERED: POTA20TA PO (13:36)
[2017-03-28] MEDS ORDERED: VANC125C2 PO (13:36)
== END 2017-01-16 01:20 | disposition short-term general hospital (02) ==
LOC: EDUNIT# 17:32 → M ED 17:32 → EDBD 17:32 → M ED 01-16 01:20
DX: K66.8 Other specified disorders of peritoneum (principal); J18.9 Pneumonia, unspecified organism; J98.6 Disorders of diaphragm; K63.89 Other specified diseases of intestine; R91.8 Other nonspecific abnormal finding of lung field; N20.0 Calculus of kidney; R18.8 Other ascites; Z97.8 Presence of other specified devices; E46 Unspecified protein-calorie malnutrition; Z86.19 Personal history of other infectious and parasitic diseases; G89.29 Other chronic pain; R10.9 Unspecified abdominal pain; K22.2 Esophageal obstruction; Z98.84 Bariatric surgery status; F17.200 Nicotine dependence, unspecified, uncomplicated; Z79.899 Other long term (current) drug therapy
CPT/HCPCS: 36415; 74177; 80048; 80076; 83605; 83690; 85025; 93041; 94760; 96361; 96365; 96374; 96375; 96376; 99285; J2543; J3370; Q9967

== ENCOUNTER 2017-02-01 07:55 | Inpatient (IN) | payer OTHER, MEDICARE ==
[~2017-02-01] VITALS: Ht 180.3 cm; Wt 56.7 kg
[2017-02-01] MEDS ORDERED: NS 1,000 ML IV ONE (08:15)
[2017-02-01] MEDS ORDERED: ONDANSETRON 4MG/2ML VIAL (J2405) IV ONE (08:15)
[2017-02-01] MEDS ORDERED: GASTROGRAFIN SOLUTION 30ML PO ONE (08:30)
[2017-02-01 08:31] LABS: BASO % 0.8 % (0.0-1.0); EOS % 0.8 % (0.0-3.0); LARGE UNSTAINED CELL # 0.1 K/mm3 (0.0-0.4); LARGE UNSTAINED CELL % 1.8 % (0.0-4.0); LYMPH # 0.6 K/mm3 (1.5-4.5); LYMPH % 13.8 % (24.0-44.0); MEAN CORPUSCULAR HEMOGLOBIN 29.7 pg (27.0-33.0); MEAN CORPUSCULAR HGB CONC 32.3 g/dl (32.0-36.5); MONO # 0.2 K/mm3 (0.0-0.8); MONO % 4.7 % (0.0-5.0); NEUTROPHILS % 78.1 % (36.0-66.0); PLATELET COUNT, AUTOMATED 390 k/mm3 (150-450); RED CELL DISTRIBUTION WIDTH 15.2 % (11.5-14.5); WHITE BLOOD COUNT 3.8 K/mm3 (4.0-10.0)
[2017-02-01] MEDS: MORPHINE 4 MG/ML 1ML SYRINGE IV PRN ×2 (08:32→09:11)
[2017-02-01 08:38] LABS: INR 1.08
[2017-02-01 08:54] LABS: ALBUMIN 2.6 GM/DL (3.2-5.2); ALKALINE PHOSPHATASE 85 U/L (45-117); ALT/SGPT 21 U/L (12-78); ANION GAP 8 MEQ/L (8-16); AST/SGOT 15 U/L (15-37); BILIRUBIN,DIRECT 0.1 MG/DL (0.0-0.2); BILIRUBIN,TOTAL 0.3 MG/DL (0.2-1.0); BLOOD UREA NITROGEN 22 MG/DL (7-18); CALCIUM LEVEL 9.2 MG/DL (8.5-10.1); CARBON DIOXIDE LEVEL 29 MEQ/L (21-32); CHLORIDE LEVEL 100 MEQ/L (98-107); CREATININE FOR GFR 0.59 MG/DL (0.70-1.30); GLOMERULAR FILTRATION RATE > 60.0 (>56); GLUCOSE, FASTING 93 MG/DL (70-105); MAGNESIUM LEVEL 2.1 MG/DL (1.8-2.4); POTASSIUM SERUM 3.7 MEQ/L (3.5-5.1); SODIUM LEVEL 137 MEQ/L (136-145); TOTAL PROTEIN 9.1 GM/DL (6.4-8.2)
[2017-02-01] MEDS ORDERED: GASTROGRAFIN SOLUTION 30ML (Q9963) PO ONE (09:00)
[2017-02-01] MEDS: OMEPRAZOLE 20 MG CAP PO SCH (09:00)
[2017-02-01] MEDS: MULTIVITAMINS CHILDREN'S CHEWABLE TABLET PO SCH (09:00)
[2017-02-01] MEDS: CYANOCOBALAMIN 500 MCG TAB PO SCH (09:00)
[2017-02-01] MEDS: VITAMIN D 1,000 INTERNATIONAL UNITS TABLET PO SCH (09:00)
[2017-02-01] MEDS: FERROUS SULFATE 325MG TAB PO SCH (09:00)
[2017-02-01] MEDS ORDERED: ISOVUE-370 76% 100ML VIAL (Q9967) As Ordered ONE (09:42)
--- NOTE | 2017-02-01 10:27 | REP ---
Clinical: Increasing abdominal pain with recent history for bowel perforation repair. Technique: Axial contrast enhanced images from the lung bases to the pubic symphysis using oral and 100 ml Isovue 370 intravenous contrast material with coronal and sagittal re-formations. Comparison: 01/15/2017. Findings: Lung bases are relatively well aerated and demonstrate near complete resolution of the previously noted right middle lobe/ right lower lobe infiltrate. Visualized heart and pericardium are normal. Liver, spleen, pancreas, bilateral adrenal glands and kidneys are normal / stable. Nonobstructing right renal calculus and bilateral renal cysts are unchanged. The patient is status post cholecystectomy, percutaneous gastrostomy, gastric bypass surgery and evidence for prior bowel reanastomosis. Previously noted pneumoperitoneum has resolved. The bowel pattern is without obstruction or definite acute inflammatory process. Pelvis demonstrates normal bladder and evidence for prior hysterectomy. No significant residual ascites is appreciated as compared to prior examination. No obvious adenopathy. Vasculature within normal limits. Musculoskeletal structures demonstrate degenerative changes and evidence for prior L5-S1 posterior fusion and laminectomy. Impression: 1. Previously noted ascites and pneumoperitoneum has resolved. 2. No obvious acute abdominopelvic pathology is appreciated. 3. Postoperative changes including evidence for prior cholecystectomy, gastric bypass surgery, percutaneous gastrostomy placement, bowel anastomoses, hysterectomy and lumbar fusion. 4. Chronic stable changes including bilateral renal cysts and nonobstructing 12 mm right renal calculus. Signed by Esdras Cruz MD 02/01/2017 10:18 A
[2017-02-01] MEDS: HYDROmorphone HCL 1 MG/ML SYRINGE (J1170) IV PRN ×2 (11:42→12:57)
[2017-02-01] MEDS ORDERED: ACETAMINOPHEN TAB 650MG DOSE (2X325MG) PO PRN (13:15)
[2017-02-01] MEDS ORDERED: ONDANSETRON 4MG/2ML VIAL (J2405) IV PRN (13:15)
[2017-02-01 13:26] LABS: REASON FOR REVIEW COMPREHENSIVE REVIEW
[2017-02-01 13:50] LABS: PERCENT SATURATION 7.6 % (19.7-50.0)
[2017-02-01] MEDS: oxyCODONE 5MG TAB PO PRN ×3 (14:18→22:42)
--- NOTE | 2017-02-01 14:34 | HPEPDOC ---
General Date of Admission Feb 01, 2017 at 13:10 Primary Care Physician: ANDRE BRYAN MD [facility] Attending Physician: SONIA EDEN MD Chief Complaint The patient is a 51-year-old male admitted with a reason for visit of Intractable Abdominal Pain. 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 The patient states that he had a laparotomy done there, and was discharged home on . Prior to discharge the patient states that he was feeling well, and tolerating a by mouth diet without any acute complaints. However, the night after the patient was admitted he states that he developed intermittent, diffuse abdominal pain, with associated nausea/vomiting and episodes of nonbloody diarrhea. The patient states that he did not check his temperature at home, but did feel subjective chills. He denies any complaints of chest pain, shortness of breath, or any palpitations. He denies ingestion of any foreign foods. In the ER, a CT scan of the abdomen revealed chronic postoperative changes, but no acute abdominopelvic pathology. The patient was noted to be without fever, or elevated white count, and the patient's lactic acid level was noted to be within normal limits. The patient was offered the opportunity to be transferred to [place] for continuation of his medical care following recent surgery, however he declined. The patient was also evaluated by Dr. Khan or general surgery in the ER, who advised that there was no indication for any surgical intervention at this time, and that the patient's abdominal pain was chronic. At this time, the patient will be admitted to the hospitalist service for further evaluation and management of his abdominal pain. Home Medications Scheduled (Iron) 325 Mg Tab, 325 MG PO DAILY, (Reported) Cholecalciferol (Vitamin D-3) 2,000 Unit Tab, 2,000 UNIT PO DAILY, (Reported) Cyanocobalamin (Vitamin B-12) 500 Mcg Tab, 500 MCG PO DAILY, (Reported) Multivitamins Chewable *[facility] STOCKED* (Animal Shapes with C & FA *[facility] STOCKED*) 1 Tab Chew, 1 TAB PO DAILY, (Reported) Omeprazole (Omeprazole) 40 Mg Cap, 40 MG PO DAILY, (Reported) Senna (Senna Lax) 8.6 Mg Tab, 1 TAB PO DAILY, (Reported) Sucralfate (Sucralfate) 1 Gm/10 Ml Mariia, 10 ML PO QID, (Reported) Scheduled PRN Ondansetron (Zofran Odt) 4 Mg Tab, 4 MG PO Q4H PRN for NAUSEA, (Reported) Oxycodone Hcl (Oxycodone HCl) 20 Mg Tab, 20 MG PO Q4H PRN for PAIN, (Reported) Allergies Coded Allergies: No Known Allergies (Verified , 10/12/16) Past Medical History Medical History As noted in HPI. Surgical History Deysi-en-Y gastrojejunostomy in May 2012. Back surgery in July 2013. Appendectomy. Cholecystectomy. Feeding tubes, most recent one was changed in 12/2016 when a larger and more flexible tube was put in. Right arm tendon repair. Right hand surgery. Lumbar epidural steroid injection in 2005. Upper GI endoscopy in 2013. He was found to have an ulceration at the site of anastomosis with scar, friable mucosa. Social History * Smoker: current smoker Alcohol: Denies Drugs: denies Review of Symptoms Other systems 10 point review of systems negative unless otherwise specified HPI. Physical Examination General Exam: Positive: Alert, Cooperative, No Acute Distress, Other ( cachectic appearing gentleman laying in bed, with bitemporal wasting noted) ENT Exam: Positive: Atraumatic, Mucous membr. moist/pink Neck Exam: Negative: JVD Chest Exam: Positive: Clear to auscultation, Normal air movement Heart Exam: Positive: Rate Normal, Normal S1, Normal S2 Abdomen Exam: Positive: Soft, Other (no tenderness to deep palpation in any quadrant. Midline Surgical scar from recent laparotomy noted with no erythema, tenderness, or discharge noted), Negative: Tenderness Extremity Exam: Negative: Tenderness, Swelling Psych Exam: Positive: Oriented x 3 Vital Signs Vital Signs Date Time Temp Pulse Resp B/P (MAP) Pulse Ox O2 Delivery O2 Flow Rate FiO2 02/01/17 14:28 97.0 77 18 97/66 (76) 99 Room Air Laboratory Data Labs 24H Laboratory Tests 2 02/01/17 08:23: White Blood Count 3.8L, Red Blood Count 3.15L, Hemoglobin 9.4L, Hematocrit 29.0L , Mean Corpuscular Volume 92.0, Mean Corpuscular Hemoglobin 29.7, Mean Corpuscular Hemoglobin Concent 32.3, Red Cell Distribution Width 15.2H, Platelet Count 390, Neutrophils (%) (Auto) 78.1H, Lymphocytes (%) (Auto) 13.8L, Monocytes (%) (Auto) 4.7, Eosinophils (%) (Auto) 0.8, Basophils (%) (Auto) 0.8, Neutrophils # (Auto) 3.0, Lymphocytes # (Auto) 0.6L, Monocytes # (Auto) 0.2, Eosinophils # (Auto) 0.0, Basophils # (Auto) 0.0, Large Unclassified Cells % 1.8 , Large Unclassified Cells # 0.1, Differential Slide Review Report, Differential Pathologist's Review COMPREHENSIVE REVIEW, Peripheral Blood Smear Path Consult PERIPHERAL SMEAR, Prothrombin Time 14.2, Prothromb Time International Ratio 1.08, Anion Gap 8, Glomerular Filtration Rate > 60.0, Lactic Acid Level 1.4, Calcium Level 9.2, Magnesium Level 2.1, Iron Level 23L, Total Iron Binding Capacity 304, Transferrin % Saturation 7.6L, Ferritin 246, Aspartate Amino Transf (AST/SGOT) 15, Alanine Aminotransferase (ALT/SGPT) 21, Alkaline Phosphatase 85, Total Bilirubin 0.3, Direct Bilirubin 0.1, Total Protein 9.1H, Albumin 2.6L, Albumin/Globulin Ratio 0.40L, Lipase 70L CBC/BMP Laboratory Tests 02/01/17 08:23 Red Blood Count 3.15 L, Mean Corpuscular Volume 92.0, Mean Corpuscular Hemoglobin 29.7, Mean Corpuscular Hemoglobin Concent 32.3, Red Cell Distribution Width 15.2 H, Neutrophils (%) (Auto) 78.1 H, Lymphocytes (%) (Auto ) 13.8 L, Monocytes (%) (Auto) 4.7, Eosinophils (%) (Auto) 0.8, Basophils (%) ( Auto) 0.8, Neutrophils # (Auto) 3.0, Lymphocytes # (Auto) 0.6 L, Monocytes # ( Auto) 0.2, Eosinophils # (Auto) 0.0, Basophils # (Auto) 0.0 Plan / VTE VTE Prophylaxis Ordered?: Yes Plan Plan Intractable Abdominal Pain CT Scan of the Abd/Pel noted, and discussed with General Surgery--no indication for surgical intervention, as this is likely a recurrence of the patient's chronic abdominal pain as per Dr. Khan WBC not elevated, Pt Afebrile, lactic acid level WNL IVF hydration ordered in the ER We will continue the patient's pain medications from home and add IV Morphine Pain Mgmt consult We will restart the patient on a diet to see how he tolerates this, and advance accordingly Consider restarting tube feeding in the morning if the patient is able to tolerate PO diet Surgery consulted--and will follow along We will cont to follow the patient Hx of Recurrent C. Difficile s/p Stool Transplant in December 2016 The patient did state that he had a few episodes of diarrhea Thursday into Thursday, but has not had any more over the last 15+ hrs. Will with hold testing for/treating for C. Diff at this time given the resolution of symptoms However, if diarrhea continues--should consider testing/empirically treating Hx of Recent Perforated Gastric Ulcer s/p Laparotomy Will obtain records from [facility] with Dr. Delarosa of surgery there Hx of Gastric Bypass, Esophageal Stricture and Chronic Feeding Tube We will advance the patient's PO diet as tolerated Consider restarting Tube Feeds in the AM if the patient is able to tolerate PO diet Severe protein malnutrition Patient restarted on by mouth diet, to be advanced as tolerated Consider restarting tube feeding in the a.m. if the patient is able to tolerate by mouth diet Dietary consulted Leukopenia, Normocytic Anemia Peripheral smear ordered Iron studies ordered History of GERD Cont PPI, Carafate History of opiate abuse and dependency Pain Mgmt on board Chronic back pain. As noted above. DVT prophylaxis Lovenox The patient will be admitted under the service of Dr. Eden, who will begin to follow the patient on 02/02/17 at 7 AM. NILDA WHALEY MD Feb 01, 2017 14:34
[2017-02-01] MEDS ORDERED: NS 1,000 ML IV SCH (15:00)
[2017-02-01] MEDS: MORPHINE 2 MG/ML 1ML SYRINGE IV PRN ×2 (16:17→21:07)
[2017-02-01] MEDS: SUCRALFATE SUSP 1GM/10ML UD PO SCH ×2 (16:18→21:06)
[2017-02-01 20:45] VITALS: BP 94/60
[2017-02-02] MEDS: MORPHINE 2 MG/ML 1ML SYRINGE IV PRN ×6 (01:12→21:03)
[2017-02-02] MEDS: oxyCODONE 5MG TAB PO PRN ×6 (02:52→23:10)
--- NOTE | 2017-02-02 04:59 | CR ---
DATE OF CONSULTATION: 02/01/2017 REASON FOR CONSULTATION: Abdominal pain with recent surgical treatment of a perforated gastrojejunal ulcer. HISTORY OF PRESENT ILLNESS: The patient is a 51-year-old man who underwent a Deysi-en-Y gastric bypass back in 2012. From the point of view of weight control , the procedure was quite effective. He had weighed more than 350 pounds and lost significant weight. However, he has had a number problems following the surgery. He has developed chronic abdominal pain. He has had problems apparently with esophageal strictures requiring dilation. At some point, a feeding type tube was placed into the area of the efferent limb and his gastric pouch. He has had chronic abdominal pain requiring narcotics. Approximately 2 weeks ago, he had presented at the emergency department at [facility] with abdominal pain and on CT scan was found to have some free fluid and free air. He was transferred to the care of his bariatric surgeon, katia Delarosa in [place] and he underwent an exploratory laparotomy and reportedly had closure of an ulcer in the area of the gastrojejunal anastomosis. He was discharged from the [facility] on 01/30 doing well. The patient reported he was tolerating tube feedings, as well as some oral intake. He was discharged home on 01/30. On the evening of the , he noted that his abdominal pain was becoming more pronounced and he presented to the emergency department on the morning of 02/01 complaining of worsened pain. He was evaluated with some basic blood work that showed his white count was not elevated at 3.8 with 78% neutrophils and 14 lymphocytes. His chemistry profile was fairly unremarkable and a lactic acid was 1.4. He had a CT scan of the abdomen and pelvis obtained. This revealed that his ascites and pneumoperitoneum noted on 01/15 had resolved. The radiologist reported no obvious acute abdominopelvic pathology. Postoperative changes were noted consistent with prior cholecystectomy and gastric bypass surgery. A percutaneous gastrostomy was noted within the area of his gastric pouch/efferent bowel limb. I was consulted to evaluate the patient to assess the possibility that there was an underlying surgical issue or if his condition was appropriate for medical admission. ALLERGIES: The patient reports no known drug allergies. MEDICATIONS: His medications include: - oxycodone 20 mg orally every 4 hours as needed for pain - Carafate 1 gram by mouth as a suspension four times daily - vitamin D3 2000 units by mouth daily - vitamin B12 500 mcg by mouth daily - a chewable multivitamin daily - omeprazole 40 mg by mouth daily - Zofran 4 mg tablets one every 4 hours as needed for nausea - Sennalax one tablet by mouth daily - iron 325 mg by mouth daily SURGICAL HISTORY: Significant for his gastric bypass in 2012. In about 2013, he underwent a spinal fusion at the lumbar area. The patient subsequently had a cholecystectomy and insertion of a G-tube. Somewhere along the line he had an appendectomy. About two and half weeks ago, he had exploratory laparotomy and repair of a perforated ulcer. He has had endoscopies for some sort of esophageal stricture. MEDICAL HISTORY: Significant for some chronic back pain. He has chronic abdominal pain present. This has been present since his bypass apparently according to the patient's description. He has had problems with Clostridium difficile colitis. He did undergo a stool transplant to address this earlier this year. The patient has some malnutrition. Despite his G-tube, he apparently has not been taking adequate calories. He is very vague on how much he has been taking through his G-tube. He often has nausea, as well as his abdominal pain. FAMILY HISTORY: Noncontributory. SOCIAL HISTORY: The patient is accompanied to the emergency room (ER) by his spouse. He has a son who just recently started college. REVIEW OF SYSTEMS: The patient denies any abdominal pain. He does not have shortness of breath, cough or wheezing. He denies any history of seizure or stroke. He had some sort of deep venous thrombosis (DVT) or superficial thrombophlebitis in an upper extremity some years ago, but has not been on any anticoagulation recently. He denies any voiding difficulties. He has noted a loose stool twice over the last day. He denies any rectal bleeding. PHYSICAL EXAMINATION: Reveals an emaciated appearing man who appears older than his stated age of 51 years. He is alert and oriented and cooperative. Skin is warm and dry. Sclerae are anicteric. The neck is thin and supple. There is no mass appreciated. Heart exam shows a regular rhythm in the 70s. Lungs are clear to auscultation bilaterally. The abdomen is thin. He has a large catheter exiting the left upper quadrant. This is sutured to the skin at the exit site. This is probably a 24-Lithuanian tube. He has a recent midline incision which appears to be healing well. He does have some bowel sounds present. The abdomen is not distended. The abdomen does not have tympany to percussion. There is tenderness to percussion, particularly in the right mid to lower abdomen. There is some mild tenderness along his recent incision. I do not identify a mass or hernia on exam. LABORATORY FINDINGS: The patient's chemistry profile showed normal electrolytes with a BUN of 22, creatinine 0.6 and a glucose of 93. Total protein is 9.1 with an albumin of 2.6. CBC showed a white count of 4 with a hemoglobin of 9, hematocrit of 29 and a platelet count of 390,000. Differential showed 78% neutrophils and 14% lymphocytes. Imaging included a CT scan of the abdomen and pelvis. I reviewed the images personally and also noted the radiologist's report. He has evidence of prior surgery. The gallbladder is surgically absent. He has a tube entering the high upper left upper quadrant and on CT this is seen to enter the area of his gastric pouch and probably his efferent limb of bowel. There are staple lines noted. There is no free air and no free fluid identified. IMPRESSION: Chronic abdominal pain normally requiring oxycodone 20 mg up to six times daily. He reports that his pain is not being controlled with his regular regimen. He is just 2 weeks postoperative from an exploratory laparotomy for a perforation, but there is no sign of intra-abdominal pathology that would require surgical intervention or drainage. His labs are relatively unremarkable with no sign of infection. RECOMMENDATIONS: At this point, the patient does not require any surgical intervention. He has had recent surgery, but does not show any signs of any complication from this or from the perforation that led to his repeat surgery. I think admission to medicine for management of his pain and other medical issues would be reasonable. The patient is quite underweight based on his exam and with a G-tube in place it would seem that we should be able to achieve adequate caloric intake to correct this. This patient may be an individual who would benefit from an evaluation by a specialist in redo bariatric surgery to see if some sort of revision would be appropriate. Unfortunately, his chronic pain is not likely to respond to some sort of revisional surgery with any great benefit. MINDA
[2017-02-02 05:26] VITALS: BP 105/71
[2017-02-02 08:14] LABS: BASO % 0.6 % (0.0-1.0); EOS # 0.1 K/mm3 (0.0-0.50); EOS % 1.8 % (0.0-3.0); LARGE UNSTAINED CELL # 0.1 K/mm3 (0.0-0.4); LARGE UNSTAINED CELL % 2.1 % (0.0-4.0); LYMPH % 21.1 % (24.0-44.0); MEAN CORPUSCULAR HEMOGLOBIN 29.7 pg (27.0-33.0); MEAN CORPUSCULAR HGB CONC 31.9 g/dl (32.0-36.5); MEAN CORPUSCULAR VOLUME 92.9 fl (80.0-96.0); MONO # 0.3 K/mm3 (0.0-0.8); MONO % 7.5 % (0.0-5.0); NEUTROPHILS # 2.9 K/mm3 (1.8-7.7); NEUTROPHILS % 66.8 % (36.0-66.0); PLATELET COUNT, AUTOMATED 381 k/mm3 (150-450); WHITE BLOOD COUNT 4.4 K/mm3 (4.0-10.0)
[2017-02-02 08:33] LABS: ALBUMIN 2.3 GM/DL (3.2-5.2); ALBUMIN/GLOBULIN RATIO 0.39 (1.00-1.93); ALKALINE PHOSPHATASE 74 U/L (45-117); ALT/SGPT 17 U/L (12-78); ANION GAP 9 MEQ/L (8-16); AST/SGOT 16 U/L (15-37); BILIRUBIN,TOTAL 0.3 MG/DL (0.2-1.0); BLOOD UREA NITROGEN 18 MG/DL (7-18); CALCIUM LEVEL 8.2 MG/DL (8.5-10.1); CARBON DIOXIDE LEVEL 26 MEQ/L (21-32); CHLORIDE LEVEL 103 MEQ/L (98-107); CREATININE FOR GFR 0.51 MG/DL (0.70-1.30); GLOMERULAR FILTRATION RATE > 60.0 (>56); GLUCOSE, FASTING 79 MG/DL (70-105); POTASSIUM SERUM 3.8 MEQ/L (3.5-5.1); SODIUM LEVEL 138 MEQ/L (136-145); TOTAL PROTEIN 8.2 GM/DL (6.4-8.2)
[2017-02-02] MEDS: ENOXAPARIN 30 MG/0.3 ML SYR (J1650) SC SCH (09:54)
[2017-02-02] MEDS: MULTIVITAMINS CHILDREN'S CHEWABLE TABLET PO SCH (09:56)
[2017-02-02] MEDS: CYANOCOBALAMIN 500 MCG TAB PO SCH (09:56)
[2017-02-02] MEDS: FERROUS SULFATE 325MG TAB PO SCH (09:56)
[2017-02-02] MEDS: SUCRALFATE SUSP 1GM/10ML UD PO SCH ×4 (09:56→21:03)
[2017-02-02] MEDS: OMEPRAZOLE 20 MG CAP PO SCH (09:56)
[2017-02-02] MEDS: VITAMIN D 1,000 INTERNATIONAL UNITS TABLET PO SCH (09:56)
--- NOTE | 2017-02-02 14:06 | IPN ---
DATE: 02/02/2017 The patient is seen and examined at the bedside. The chart has been reviewed. He currently complains of diffuse abdominal pain without nausea or vomiting. Described it as crampy and achy. No sharp stabbing pain. No radiation of the pain. Denies dysuria, urgency or frequency, fever or chills. The patient was evaluated by general surgery yesterday with no acute surgical intervention required. VITAL SIGNS: Temperature 98.6, respiratory rate 18, pulse 71, blood pressure 105/71. Generally, the patient is a cachectic appearing who appears older than his stated age. No respiratory distress, cyanosis, icterus, jaundice. No jugular venous distention. No thyromegaly. No cervical lymphadenopathy. No pharyngeal erythema. Lungs are clear to auscultation. No wheezing, rales or rhonchi. Heart: S1, S2. Sinus rhythm. Abdomen is soft. No tenderness to deep palpation bilateral lower quadrants. Midline surgical scar recent laparotomy. No erythema, tenderness or discharge. Extremities: No cyanosis, clubbing or pitting edema. Musculoskeletal: Significant muscle atrophy and cachexia. LAB DATA: White count 4.4, hemoglobin 8.5, hematocrit 26.6, platelet count 381. Sodium 138, potassium 3.9, chloride 103, bicarbonate 26, BUN 18, creatinine 0.5, glucose 79. Blood culture pending. . CT abdomen and pelvis: No acute pelvic or abnormal pathology. The patient has previously noted ascites, pneumoperitoneum resolved. No obvious acute pathology. Postop changes from prior cholecystectomy. Gastric bypass surgery, percutaneous gastrostomy placement, bowel anastomosis. And lumbar fusion. Chronic stable changes including bilateral renal cysts, nonobstructing 12 mm right renal calculus. ASSESSMENT/PLAN: This is a 51-year-old male with a past medical history significant for gastric bypass four years ago with history of morbid obesity, subsequent malnutrition, body mass index, (BMI) of 7, status G-tube placement, depression and current C. Difficile status post stool transplant on December 2016. He presented on 2016 with abdominal pain, pneumoperitoneum, perforated gastric ulcer for which the patient was transferred to [facility] He had a laparotomy done and discharged on 01/30/2017. He had been feeling well tolerating oral diet without acute complaints. Has been on chronic G-tube feedings as well. He presents to the emergency room with diffuse intermittent abdominal pain, nausea and vomiting and bloody diarrhea. The patient denies any fever or chills. Admitted for further evaluation for chronic abdominal pain. CT abdomen and pelvis showed no acute intrapelvic or abdominal pathology. Per general surgery, no surgical indication for intervention. Most likely recurrence of chronic abdominal pain. White count is not elevated. Lactic acid is normal. The patient is afebrile. Currently will continue on IV fluid hydration, pain management consultation and G-tube feeding with material flow engineer consult. History of recurrent C difficile status post stool transplant in December 2016. A few episodes of diarrhea Thursday and Thursday but has not had anything since. Recent history of perforated gastric ulcer status post laparotomy. Obtain records from [facility]. History of gastric bypass esophageal stricture and chronic tube feeding. Continue with oral diet as tolerated tube feeding. Recommendations per material flow engineer. Severe protein calorie malnutrition, BMI of 7. Continue with supplemental tube feedings. Anemia, most likely hemodilution from IV fluids received overnight. Continue to monitor. Transfuse as needed. History of reflux: Continue proton pump inhibitor (PPI) and Carafate. History of opiate abuse dependency: Pain management. Chronic back pain: Pain management. Deep venous thrombosis (DVT) prophylaxis with Lovenox. MTDD
--- NOTE | 2017-02-02 19:18 | ECGEPIP ---
Stationary ECG Study [facility] - ED Test Date: 2017-02-01 Pat Name: GRAHAM COLEMAN Department: Room: - Gender: M Curriculum And Assessment Coordinator: JT : 1965 Requested By: Kathryn Berg Order Number: [id number] Reading MD: Smith Enamorado Measurements Intervals [place] Rate: 75 P: 69 [place]: 191 QRS: -22 QRSD: 94 T: 58 QT: 397 QTc: 444 Interpretive Statements SINUS RHYTHM LEFT AXIS DEVIATION Electronically Signed On 02-02-2017 19:17:48 EDT by Smith Enamorado
[2017-02-02 22:00] VITALS: BP 93/67
[2017-02-03] MEDS: MORPHINE 2 MG/ML 1ML SYRINGE IV PRN ×6 (01:08→22:05)
[2017-02-03] MEDS: oxyCODONE 5MG TAB PO PRN ×6 (03:12→23:42)
[2017-02-03 06:00] VITALS: BP 90/64
[2017-02-03 06:25] LABS: BASO % 0.7 % (0.0-1.0); EOS # 0.1 K/mm3 (0.0-0.50); LARGE UNSTAINED CELL # 0.2 K/mm3 (0.0-0.4); LYMPH # 0.9 K/mm3 (1.5-4.5); LYMPH % 25.5 % (24.0-44.0); MEAN CORPUSCULAR HEMOGLOBIN 30.4 pg (27.0-33.0); MEAN CORPUSCULAR HGB CONC 32.9 g/dl (32.0-36.5); MEAN CORPUSCULAR VOLUME 92.5 fl (80.0-96.0); MONO # 0.4 K/mm3 (0.0-0.8); MONO % 10.2 % (0.0-5.0); NEUTROPHILS % 55.5 % (36.0-66.0); PLATELET COUNT, AUTOMATED 388 k/mm3 (150-450); RED CELL DISTRIBUTION WIDTH 14.9 % (11.5-14.5); WHITE BLOOD COUNT 3.6 K/mm3 (4.0-10.0)
[2017-02-03 06:40] LABS: ALBUMIN 2.3 GM/DL (3.2-5.2); ALBUMIN/GLOBULIN RATIO 0.41 (1.00-1.93); ALKALINE PHOSPHATASE 73 U/L (45-117); ALT/SGPT 15 U/L (12-78); ANION GAP 6 MEQ/L (8-16); AST/SGOT 11 U/L (15-37); BILIRUBIN,TOTAL 0.2 MG/DL (0.2-1.0); BLOOD UREA NITROGEN 13 MG/DL (7-18); CALCIUM LEVEL 8.2 MG/DL (8.5-10.1); CARBON DIOXIDE LEVEL 26 MEQ/L (21-32); CHLORIDE LEVEL 105 MEQ/L (98-107); CREATININE FOR GFR 0.45 MG/DL (0.70-1.30); GLOMERULAR FILTRATION RATE > 60.0 (>56); GLUCOSE, FASTING 76 MG/DL (70-105); POTASSIUM SERUM 3.9 MEQ/L (3.5-5.1); SODIUM LEVEL 137 MEQ/L (136-145); TOTAL PROTEIN 7.9 GM/DL (6.4-8.2)
[2017-02-03] MEDS: SUCRALFATE SUSP 1GM/10ML UD PO SCH ×4 (09:36→20:17)
[2017-02-03] MEDS: OMEPRAZOLE 20 MG CAP PO SCH (09:37)
[2017-02-03] MEDS: ENOXAPARIN 30 MG/0.3 ML SYR (J1650) SC SCH (09:37)
[2017-02-03] MEDS: MULTIVITAMINS CHILDREN'S CHEWABLE TABLET PO SCH (09:37)
[2017-02-03] MEDS: VITAMIN D 1,000 INTERNATIONAL UNITS TABLET PO SCH (09:38)
[2017-02-03] MEDS: CYANOCOBALAMIN 500 MCG TAB PO SCH (09:38)
[2017-02-03] MEDS: FERROUS SULFATE 325MG TAB PO SCH (09:38)
[2017-02-03 14:00] VITALS: BP 99/68
--- NOTE | 2017-02-03 14:40 | IPNPDOC ---
Text Note Date of Service The patient was seen on 02/03/17. 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 Patient was recently at [facility] for abdominal pain and was found to have a pneumoperitoneum 2/2 perforated gastric ulcer and was transferred to [address] where he had a laparotomy done and was discharged home on 01/30/17. Patient noted that on 02/01/17 he developed abdominal pain associated with nausea and vomiting and episodes of diarrhea. In the ER, CT ob his abdomen revealed no acute pathology, but revealed chronic post-operative changes. Patient declined to be transferred to [facility]. Patient was evaluated by Dr. Khan (Surgery); no indication for surgery was warranted at this time as patient's abdominal pain was chronic. Patient was seen and examined at the bedside. Currently he reports some abdominal pain at his LLQ. Denies any nausea or vomiting. Denies diarrhea or constipation. Denies dysuria. Objective: Vitals (See below) General: Lying in bed, no acute distress, comfortable, AAOx3 HEENT: NC, AT CVS: RRR, +S1S2 Lungs: Fair air entry b/l Abdomen: Soft, ND, Tenderness at LLQ, Hypoactive BS Extremities: - Edema, - Calf tenderness Assessment and plan: Abdominal pain with associated nausea / vomiting - Recent history of gastric perforation and exploratory laparotomy at [facility] - Presented with abdominal pain, nausea and vomiting - improving - No leukocytosis, no lactic acidosis - CT abdomen / pelvis: previous ascites and pneumoperitoneum resolved, no obvious acute abdominopelvic pathology, post-operative changes - Surgery (Dr. Khan) evaluated; no need for surgical intervention at this time - Will get nutritional consult and increase PEG tube feedings as tolerated History of C. diff colitis - s/p Stool transplant 12/2016 History of gastric bypass, Esophageal stricture, Chronic tube feedings, Severe protein calorie malnutrition - BMI of 7 - will provide supplemental feedings - vest tailor consult Normocytic anemia - Hg appears stable and at baseline Chronic back pain - c/w Tylenol and Oxycodone PRN - Pain management recommendations pending Opiate abuse dependency - Pain management recommendations pending GERD - c/w Omeprazole and Sucralfate DVT prophylaxis - c/w Lovenox VS,Fishbone, I+O VS, Fishbone, I+O Laboratory Tests 02/03/17 05:48 Red Blood Count 2.99 L, Mean Corpuscular Volume 92.5, Mean Corpuscular Hemoglobin 30.4, Mean Corpuscular Hemoglobin Concent 32.9, Red Cell Distribution Width 14.9 H, Neutrophils (%) (Auto) 55.5, Lymphocytes (%) (Auto) 25.5, Monocytes (%) (Auto) 10.2 H, Eosinophils (%) (Auto) 3.0, Basophils (%) ( Auto) 0.7, Neutrophils # (Auto) 2.0, Lymphocytes # (Auto) 0.9 L, Monocytes # ( Auto) 0.4, Eosinophils # (Auto) 0.1, Basophils # (Auto) 0.0, Calcium Level 8.2 L , Aspartate Amino Transf (AST/SGOT) 11 L, Alanine Aminotransferase (ALT/SGPT) 15 , Alkaline Phosphatase 73, Total Bilirubin 0.2, Total Protein 7.9, Albumin 2.3 L Vital Signs Date Time Temp Pulse Resp B/P (MAP) Pulse Ox O2 Delivery O2 Flow Rate FiO2 02/03/17 13:48 16 02/03/17 07:27 Room Air 02/03/17 06:00 98.9 68 90/64 (73) 99 I&O- Last 24 Hours up to 6 AM 02/03/17 05:59 Intake Total 1560 ml Output Total 350 ml Balance 1210 ml RICKI VILA MD Feb 03, 2017 14:40
--- NOTE | 2017-02-03 15:12 | REP ---
Clinical: Pain and swelling . Technique: Jonas scale and color Doppler evaluation using linear high frequency transducer. Findings: Ultrasound examination of the left lower extremity deep venous structures from the common femoral vein to the popliteal vein demonstrates normal compressibility flow and wave patterns in response to respiration and augmentation. There is no evidence for deep venous thrombosis. Impression: No evidence for deep venous thrombosis. Signed by Esdras Cruz MD 02/03/2017 03:04 P
--- NOTE | 2017-02-03 18:13 | CR.PDOC ---
[facility] Pain Clinic Consultation General Date of Consultation: 02/02/17 Consultation Report For: NILDA WHALEY MD Chief Complaint The patient is a 51-year-old male admitted with a reason for visit of Intractable Abdominal Pain. Pain management is asked to further evaluate his current pain medications. History of Present Illness Mr. Stokes is a 51-year-old gentleman with a long-standing history of abdominal pain. He was last seen during her hospitalization by BRYAN Jordan on 01/06/2017. At that time he was discharged to [facility]. Review underwent a emergent laparotomy and repair of a perforated gastric ulcer. He apparently made good progress across and was discharged on 2016. He was readmitted to [facility] on 02/01/2017, with recurrent abdominal pain. Since he has been hospitalized. He has been restarted on his usual pain medications and has had some additional doses of morphine 1 mg IV. Today he reports his pain level is under fairly good control and he has begun to be able to take an oral of soft foods and fluids. Rates his pain level at the time of my visit as a 4-5/10. Notes that this is very comfortable and manageable, but that it can change quickly. States he is very pleased with his current medications and his pain control. Home Medications Scheduled (Iron) 325 Mg Tab, 325 MG PO DAILY, (Reported) Cholecalciferol (Vitamin D-3) 2,000 Unit Tab, 2,000 UNIT PO DAILY, (Reported) Cyanocobalamin (Vitamin B-12) 500 Mcg Tab, 500 MCG PO DAILY, (Reported) Multivitamins Chewable *[facility] STOCKED* (Animal Shapes with C & FA *[facility] STOCKED*) 1 Tab Chew, 1 TAB PO DAILY, (Reported) Omeprazole (Omeprazole) 40 Mg Cap, 40 MG PO DAILY, (Reported) Senna (Senna Lax) 8.6 Mg Tab, 1 TAB PO DAILY, (Reported) Sucralfate (Sucralfate) 1 Gm/10 Ml Mariia, 10 ML PO QID, (Reported) Scheduled PRN Ondansetron (Zofran Odt) 4 Mg Tab, 4 MG PO Q4H PRN for NAUSEA, (Reported) Oxycodone Hcl (Oxycodone HCl) 20 Mg Tab, 20 MG PO Q4H PRN for PAIN, (Reported) Allergies Coded Allergies: No Known Allergies (Verified , 10/12/16) Past Medical History Medical History Past medical history status post gastric bypass surgery with multiple complications 2012. He has a history of chronic back pain and did undergo previous back surgery. Health issues include severe protein calorie malnutrition. Cachexia. Kidney stones. Chronic narcotic dependence. Postlaminectomy pain syndrome, chronic hypotension and major depressive disorder. Social History Social History Lives with his and does report strong social support. Denies use of alcohol. Has used marijuana in the past. Denies use of any other illicit substances. Review of Systems Subjective HEENT: Denies: head aches, vision problems, hearing problems Skin: Reports: other (G-tube is in place without drainage.), Denies: lesions, rash, breakdown Pulmonary: Denies: cough, orthopnea, shortness of breath, stridor, wheezing, dyspnea, hemoptysis, sputum production, difficulty breathing, other Cardiovascular: Denies: chest pain, edema, palpitations, syncope, irregular heart rate, light headedness, history of heart murmur, other Gastrointestinal: Reports: abdominal pain (significant epigastric pain.), other (G-tube in place for nutrition.) Genitourinary: Denies: dysuria, hematuria, loss of bladder control Musculoskeletal: Reports: muscle pain, spasms, muscle stiffness, other ( chronic low back pain.) Psych: Reports: anxiety, depression, Denies: mood normal, thoughts of self harm, thoughts of harming other Physical Examination Physical Examination Vital Signs/I&O Vital Signs Date Time Temp Pulse Resp B/P (MAP) Pulse Ox O2 Delivery O2 Flow Rate FiO2 02/03/17 16:04 16 02/03/17 07:27 Room Air 02/03/17 06:00 98.9 68 90/64 (73) 99 I&O- Last 24 Hours up to 6 AM 02/03/17 05:59 Intake Total 1560 ml Output Total 350 ml Balance 1210 ml General Exam: Positive: alert, attentive, talkative, other (cachtetic in appearance) ENT EXAM: Positive: normocephalic, other (mucous membranes are dry) Neck Exam: Negative: Lymphadenopathy, Thyromegaly Chest Exam: Positive: Clear to auscultation, Negative: Wheezing, Rales Heart Exam: Positive: Regular rate and rhythm, Normal S1, S2, Negative: Murmurs, Rubs Abdominal Exam: Positive: Normal bowel sounds, Soft, Other (PEG tube in place. Midline abdominal incision without areas of erythema or exudate.) Extremity Exam: Negative: Edema Skin Exam: Positive: Warm, Dry, Negative: Rashes, Lesions Neuro Exam: Positive: Muscle Strength U/L Ext., Normal Tone, Reflexes 2+ Psych Exam: Positive: Mental status NL, Mood NL, Memory Intact, Alert and oriented x 3 Musculoskeletal Able to position self side to side and sit up in bed. Tender with palpation over lumbar spinous processes and across the lumbosacral axis. No focal weakness to the quadriceps or lower extremities. Laboratory Data CBC/BMP Laboratory Tests 02/03/17 05:48 Red Blood Count 2.99 L, Mean Corpuscular Volume 92.5, Mean Corpuscular Hemoglobin 30.4, Mean Corpuscular Hemoglobin Concent 32.9, Red Cell Distribution Width 14.9 H, Neutrophils (%) (Auto) 55.5, Lymphocytes (%) (Auto) 25.5, Monocytes (%) (Auto) 10.2 H, Eosinophils (%) (Auto) 3.0, Basophils (%) ( Auto) 0.7, Neutrophils # (Auto) 2.0, Lymphocytes # (Auto) 0.9 L, Monocytes # ( Auto) 0.4, Eosinophils # (Auto) 0.1, Basophils # (Auto) 0.0, Calcium Level 8.2 L , Aspartate Amino Transf (AST/SGOT) 11 L, Alanine Aminotransferase (ALT/SGPT) 15 , Alkaline Phosphatase 73, Total Bilirubin 0.2, Total Protein 7.9, Albumin 2.3 L Microbiology Microbiology 02/01/17 Blood Culture - Preliminary, Resulted No Growth after 48 hours. All Specime... Assessment 1. Acute on chronic abdominal pain status post recent repair of perforated gastric ulcer. 2. Chronic low back pain status post laminectomy. 3. Chronic opioid dependence. 4. Chronic pain Recommendation and Plan Currently Mr. Stokes is on his usual medications with some occasional when necessary morphine. He is noting that he is doing quite well. He is been able to rest and is beginning to take some oral nutrition. When Mrs. Feng spoke with him last month he was considering the option of medical marijuana. If this is successful, the goal would be long-term to wean him from his opioid medications. Currently, his medications for pain are usually prescribed through his gastrointestinal provider Dr. Delarosa in [place]. Would encourage him to continue use of his medications as currently ordered. He will be switching to on oral medications only in the near future. He will follow-up with his primary care and gastrointestinal provider. Did recommend no changes at this time. Thank you Dr. Whaley, for allowing us to participate in the care of your patient , Edwar Stokes. Should you have any questions we will be glad to discuss this with you at any time please contact us here at the pain center at [phone]. Petty RichP-Farrukh Feb 03, 2017 18:13
[2017-02-03 22:00] VITALS: BP 95/61
[2017-02-04] MEDS: MORPHINE 2 MG/ML 1ML SYRINGE IV PRN ×6 (02:17→22:52)
[2017-02-04] MEDS: oxyCODONE 5MG TAB PO PRN ×5 (03:44→20:34)
[2017-02-04 06:00] VITALS: BP 185/87
[2017-02-04 07:05] LABS: BASO % 0.5 % (0.0-1.0); EOS # 0.1 K/mm3 (0.0-0.50); LARGE UNSTAINED CELL # 0.1 K/mm3 (0.0-0.4); LARGE UNSTAINED CELL % 2.3 % (0.0-4.0); LYMPH # 0.9 K/mm3 (1.5-4.5); LYMPH % 15.6 % (24.0-44.0); MEAN CORPUSCULAR HGB CONC 32.5 g/dl (32.0-36.5); MEAN CORPUSCULAR VOLUME 92.3 fl (80.0-96.0); MONO # 0.5 K/mm3 (0.0-0.8); MONO % 10.4 % (0.0-5.0); NEUTROPHILS # 3.3 K/mm3 (1.8-7.7); NEUTROPHILS % 69.1 % (36.0-66.0); PLATELET COUNT, AUTOMATED 363 k/mm3 (150-450); RED CELL DISTRIBUTION WIDTH 14.7 % (11.5-14.5); WHITE BLOOD COUNT 4.7 K/mm3 (4.0-10.0)
[2017-02-04 07:38] LABS: ALBUMIN 2.4 GM/DL (3.2-5.2); ALBUMIN/GLOBULIN RATIO 0.43 (1.00-1.93); ALKALINE PHOSPHATASE 78 U/L (45-117); ALT/SGPT 14 U/L (12-78); ANION GAP 6 MEQ/L (8-16); AST/SGOT 13 U/L (15-37); BILIRUBIN,TOTAL 0.3 MG/DL (0.2-1.0); BLOOD UREA NITROGEN 10 MG/DL (7-18); CALCIUM LEVEL 8.2 MG/DL (8.5-10.1); CARBON DIOXIDE LEVEL 27 MEQ/L (21-32); CHLORIDE LEVEL 102 MEQ/L (98-107); GLOMERULAR FILTRATION RATE > 60.0 (>56); GLUCOSE, FASTING 83 MG/DL (70-105); SODIUM LEVEL 135 MEQ/L (136-145)
[2017-02-04] MEDS: SUCRALFATE SUSP 1GM/10ML UD PO SCH ×4 (08:04→20:32)
[2017-02-04] MEDS: OMEPRAZOLE 20 MG CAP PO SCH (08:04)
[2017-02-04] MEDS: ENOXAPARIN 30 MG/0.3 ML SYR (J1650) SC SCH (08:04)
[2017-02-04] MEDS: MULTIVITAMINS CHILDREN'S CHEWABLE TABLET PO SCH (08:04)
[2017-02-04] MEDS: CYANOCOBALAMIN 500 MCG TAB PO SCH (08:04)
[2017-02-04] MEDS: FERROUS SULFATE 325MG TAB PO SCH (08:04)
[2017-02-04] MEDS: VITAMIN D 1,000 INTERNATIONAL UNITS TABLET PO SCH (08:04)
--- NOTE | 2017-02-04 13:18 | IPNPDOC ---
Text Note Date of Service The patient was seen on 02/04/17. 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 Patient was recently at [facility] for abdominal pain and was found to have a pneumoperitoneum 2/2 perforated gastric ulcer and was transferred to [address] where he had a laparotomy done and was discharged home on 01/30/17. Patient noted that on 02/01/17 he developed abdominal pain associated with nausea and vomiting and episodes of diarrhea. In the ER, CT ob his abdomen revealed no acute pathology, but revealed chronic post-operative changes. Patient declined to be transferred to [facility]. Patient was evaluated by Dr. Khan (Surgery); no indication for surgery was warranted at this time as patient's abdominal pain was chronic. Patient was seen and examined at the bedside. He notes that his abdominal pain is doing better now; has been controlled with pain medications. His appetite is doing much better, has been consuming more orally and not requiring supplemental feeding via PEG tube. He denies any diarrhea, had only 1 bowel movement yesterday. Objective: Vitals (See below) General: Lying in bed, no acute distress, comfortable, AAOx3 HEENT: NC, AT CVS: RRR, +S1S2 Lungs: Fair air entry b/l Abdomen: Soft, ND, No tenderness, + PEG Extremities: - Edema, - Calf tenderness Assessment and plan: Abdominal pain with associated nausea / vomiting; has been going on for years - Recent history of gastric perforation and exploratory laparotomy at [facility] - Presented with abdominal pain, nausea and vomiting - controlled pain and resolution of N&V - No leukocytosis, no lactic acidosis - CT abdomen / pelvis: previous ascites and pneumoperitoneum resolved, no obvious acute abdominopelvic pathology, post-operative changes - Surgery (Dr. Khan) evaluated; no need for surgical intervention at this time - Nutritional consult advised providing ensure with meals - Patient has been increasing oral intake, not requiring supplemental feeds via PEG History of C. diff colitis - s/p Stool transplant 12/2016 History of gastric bypass, Esophageal stricture, Chronic tube feedings, Severe protein calorie malnutrition - BMI of 17* (Incorrect weight listed prior, BMI never was 7) - will provide supplemental nutrition with Ensure; not requiring PEG tube feedings Normocytic anemia - Hg appears stable and at baseline Chronic back pain - c/w Tylenol and Oxycodone PRN Opiate abuse dependency - c/w current pain regimen GERD - c/w Omeprazole and Sucralfate DVT prophylaxis - c/w Lovenox Disposition: - Will likely discharge tomorrow morning VS,Fishbone, I+O VS, Fishbone, I+O Laboratory Tests 02/04/17 06:46 Red Blood Count 3.19 L, Mean Corpuscular Volume 92.3, Mean Corpuscular Hemoglobin 30.0, Mean Corpuscular Hemoglobin Concent 32.5, Red Cell Distribution Width 14.7 H, Neutrophils (%) (Auto) 69.1 H, Lymphocytes (%) (Auto ) 15.6 L, Monocytes (%) (Auto) 10.4 H, Eosinophils (%) (Auto) 2.0, Basophils (% ) (Auto) 0.5, Neutrophils # (Auto) 3.3, Lymphocytes # (Auto) 0.9 L, Monocytes # (Auto) 0.5, Eosinophils # (Auto) 0.1, Basophils # (Auto) 0.0, Calcium Level 8.2 L, Aspartate Amino Transf (AST/SGOT) 13 L, Alanine Aminotransferase (ALT/SGPT) 14, Alkaline Phosphatase 78, Total Bilirubin 0.3, Total Protein 8.0, Albumin 2.4 L Vital Signs Date Time Temp Pulse Resp B/P (MAP) Pulse Ox O2 Delivery O2 Flow Rate FiO2 02/04/17 12:32 16 02/04/17 06:31 Room Air 02/04/17 06:00 98.6 72 185/87 (119) 99 I&O- Last 24 Hours up to 6 AM 02/04/17 06:00 Intake Total 120 ml Balance 120 ml RICKI VILA MD Feb 04, 2017 13:18
[2017-02-04 14:00] VITALS: BP 101/65
[2017-02-04 22:00] VITALS: BP 90/60
[2017-02-05] MEDS: oxyCODONE 5MG TAB PO PRN ×3 (00:53→09:19)
[2017-02-05] MEDS: MORPHINE 2 MG/ML 1ML SYRINGE IV PRN ×2 (03:02→07:11)
[2017-02-05 06:00] VITALS: BP 93/63
[2017-02-05 07:28] LABS: BASO % 0.6 % (0.0-1.0); EOS # 0.1 K/mm3 (0.0-0.50); EOS % 2.6 % (0.0-3.0); LARGE UNSTAINED CELL # 0.2 K/mm3 (0.0-0.4); LARGE UNSTAINED CELL % 4.5 % (0.0-4.0); LYMPH # 0.6 K/mm3 (1.5-4.5); LYMPH % 16.3 % (24.0-44.0); MEAN CORPUSCULAR HEMOGLOBIN 30.4 pg (27.0-33.0); MEAN CORPUSCULAR HGB CONC 33.8 g/dl (32.0-36.5); MEAN CORPUSCULAR VOLUME 89.7 fl (80.0-96.0); MONO # 0.4 K/mm3 (0.0-0.8); MONO % 10.5 % (0.0-5.0); NEUTROPHILS # 2.4 K/mm3 (1.8-7.7); NEUTROPHILS % 65.6 % (36.0-66.0); PLATELET COUNT, AUTOMATED 325 k/mm3 (150-450); RED CELL DISTRIBUTION WIDTH 14.5 % (11.5-14.5); WHITE BLOOD COUNT 3.6 K/mm3 (4.0-10.0)
[2017-02-05 07:56] LABS: ALBUMIN 2.5 GM/DL (3.2-5.2); ALBUMIN/GLOBULIN RATIO 0.49 (1.00-1.93); ALKALINE PHOSPHATASE 80 U/L (45-117); ALT/SGPT 12 U/L (12-78); ANION GAP 9 MEQ/L (8-16); AST/SGOT 10 U/L (15-37); BILIRUBIN,TOTAL 0.3 MG/DL (0.2-1.0); BLOOD UREA NITROGEN 12 MG/DL (7-18); CALCIUM LEVEL 8.3 MG/DL (8.5-10.1); CARBON DIOXIDE LEVEL 24 MEQ/L (21-32); CHLORIDE LEVEL 104 MEQ/L (98-107); CREATININE FOR GFR 0.44 MG/DL (0.70-1.30); GLOMERULAR FILTRATION RATE > 60.0 (>56); GLUCOSE, FASTING 78 MG/DL (70-105); SODIUM LEVEL 137 MEQ/L (136-145); TOTAL PROTEIN 7.6 GM/DL (6.4-8.2)
[2017-02-05] MEDS: FERROUS SULFATE 325MG TAB PO SCH (08:07)
[2017-02-05] MEDS: SUCRALFATE SUSP 1GM/10ML UD PO SCH (08:07)
[2017-02-05] MEDS: CYANOCOBALAMIN 500 MCG TAB PO SCH (08:07)
[2017-02-05] MEDS: ENOXAPARIN 30 MG/0.3 ML SYR (J1650) SC SCH (08:07)
[2017-02-05] MEDS: MULTIVITAMINS CHILDREN'S CHEWABLE TABLET PO SCH (08:07)
[2017-02-05] MEDS: OMEPRAZOLE 20 MG CAP PO SCH (08:07)
[2017-02-05] MEDS: VITAMIN D 1,000 INTERNATIONAL UNITS TABLET PO SCH (08:07)
--- NOTE | 2017-02-06 10:02 | DSES ---
DATE OF ADMISSION: 02/01/2017 DATE OF DISCHARGE: 02/05/2017 ATTENDING PHYSICIAN: Gloria Ibarra. PRIMARY CARE PHYSICIAN: Cedric Marrero REFERRING PHYSICIAN: None. CONSULTING PROVIDERS: Kleber Khan, Cristina eFng. CONDITION AT DISCHARGE: Stable. DIAGNOSIS: Abdominal pain with associated nausea and vomiting, likely secondary to chronic abdominal pain. PROCEDURES: None. HISTORY OF PRESENT ILLNESS: Patient is a 51-year-old male with a past medical history of morbid obesity status post gastric bypass in 2012, malnutrition, status post percutaneous endoscopic gastrostomy (PEG) tube, depression, recurrent Clostridium difficile status post stool transplant in 12/2016. Patient was recently at [facility] for abdominal pain and was found to have pneumoperitoneum secondary to perforated gastric ulcer and was transferred to [facility] where he had a laparotomy done and was discharged home on 01/30/2017. Patient noted that on 02/01/2017, he developed abdominal pain associated with nausea and vomiting and episodes of diarrhea. In the emergency, CT of his abdomen revealed no acute pathology but revealed chronic postoperative changes. Patient declined to be transferred to [facility]. Patient was evaluated by surgery, Dr. Khan, and had indicated no other surgery was warranted given that his abdominal pain was chronic in nature. HOSPITAL COURSE: 1. Abdominal pain with associated nausea and vomiting. Has been going on for years. Recent history of gastric perforation and exploratory laparotomy performed at [facility]. Presented with abdominal pain, nausea, and vomiting, which had resolved throughout the hospital course. Pain had become better controlled. There was no leukocytosis or lactic acidosis throughout the hospital course. CT scan of his abdomen and pelvis that was acquired upon admission revealed his previous ascites and pneumoperitoneum had resolved. There is no obvious acute abdominopelvic pathology that was noted. Postoperative changes were noted. Surgery, Dr. Khan, had evaluated the patient upon arrival to the emergency room and throughout the hospital course, and no surgical intervention has been required. Nutritional consult has been acquired and have given recommendations for Ensure with meals. Patient does have the PEG tube but did not require any additional feedings via PEG. He has been increasing his oral intake. 2. History of Clostridium difficile colitis, status post stool transplant in 12/2016. 3. History of gastric bypass, esophageal strictures, chronic tube feedings, severe protein-calorie malnutrition. Body mass index (BMI) at 17 was noted throughout the hospital course. Supplemental nutrition via Ensure was provided. Did not require any additional feedings via PEG tube. 4. Normocytic anemia. Hemoglobin remained stable throughout the hospital course. 5. Chronic back pain. Continue with Tylenol and oxycodone as needed. 6. Opiate abuse dependency. Continue with current pain regimen. Pain management has given their recommendations. We appreciate their input. 7. Gastroesophageal reflux disease (GERD). Continue with omeprazole and sucralfate. 8. Deep venous thrombosis (DVT) prophylaxis. He has been put on Lovenox. DISCHARGE MEDICATION: Patient being discharged home with the following mediation list: - vitamin D3, 2000 units by mouth daily - vitamin B12, 5000 mcg by mouth daily - iron 325 mg by mouth daily - multivitamins one tablet by mouth daily - omeprazole 40 mg by mouth daily - Zofran 4 mg by mouth every 4 hours as needed nausea - oxycodone 12 mg by mouth every 4 hours as needed pain - senna one tablet by mouth daily - sucralfate 10 mL by mouth four times a day DISCHARGE INSTRUCTIONS: Patient has been advised to followup with his primary care provider and his surgeon from [facility] within the next 7 days. He has been advised to remain compliant with treatment plan and medication and to return to the emergency room if he experiences any problems. TIME SPENT ON DISCHARGE: Greater than 35 minutes.
[2017-03-18] MEDS ORDERED: K-TA1TAB PO (08:37)
[2017-03-18] MEDS ORDERED: VANC125C2 PO (08:41)
[2017-03-26] MEDS ORDERED: FLAG500T PO (09:00)
[2017-03-28] MEDS ORDERED: POTA20TA PO (13:36)
[2017-03-28] MEDS ORDERED: VANC125C2 PO (13:36)
[2017-03-28] MEDS ORDERED: METR1TAB66 PO (13:36)
== END 2017-02-05 10:45 | disposition home or self-care (01) | DRG 251 ==
LOC: M ED 07:55 → EDBD 07:55 → M ED INP 13:10 → M MS5PR 15:50
PROVIDERS: ADMIT Internal Medicine; ATTEND Internal Medicine
DX: R10.9 Unspecified abdominal pain (principal); R11.2 Nausea with vomiting, unspecified; Z68.1 Body mass index [BMI] 19.9 or less, adult; Z93.1 Gastrostomy status; Z98.84 Bariatric surgery status; D64.9 Anemia, unspecified; M54.5 Low back pain; F11.20 Opioid dependence, uncomplicated; K21.9 Gastro-esophageal reflux disease without esophagitis; E43 Unspecified severe protein-calorie malnutrition; Z79.899 Other long term (current) drug therapy; F17.200 Nicotine dependence, unspecified, uncomplicated; M96.1 Postlaminectomy syndrome, not elsewhere classified

== ENCOUNTER 2017-02-20 14:04 | Emergency (ER) | payer MEDICARE, OTHER ==
[~2017-02-20] VITALS: Ht 180.3 cm; Wt 61.4 kg
[2017-02-20] MEDS ORDERED: RISATAB3 PO (14:31)
[2017-02-20] MEDS ORDERED: NS 1,000 ML IV ONE (17:45)
[2017-02-20] MEDS ORDERED: METOCLOPRAMIDE INJ 10MG/2ML VIAL (J2765) IV ONE (18:15)
[2017-02-20 18:23] LABS: BASO % 0.8 % (0.0-1.0); EOS # 0.1 10^3/uL (0.0-0.50); EOS % 1.8 % (0.0-3.0); IMMATURE GRANULOCYTE % 0.3 % (0-0); LYMPH # 1.1 10^3/uL (1.5-4.5); LYMPH % 27.3 % (24.0-44.0); MEAN CORPUSCULAR HEMOGLOBIN 28.7 pg (27.0-33.0); MEAN CORPUSCULAR HGB CONC 31.6 g/dl (32.0-36.5); MEAN CORPUSCULAR VOLUME 90.7 fl (80.0-96.0); MONO # 0.3 10^3/uL (0.0-0.8); MONO % 6.6 % (0.0-5.0); NEUTROPHILS # 2.5 10^3/uL (1.8-7.7); NEUTROPHILS % 63.2 % (36.0-66.0); PLATELET COUNT, AUTOMATED 257 10^3/uL (150-450); RED CELL DISTRIBUTION WIDTH 13.9 % (11.5-14.5); WHITE BLOOD COUNT 3.9 10^3/uL (4.0-10.0)
[2017-02-20 18:28] LABS: ADD MORPHOLOGY? NO
[2017-02-20 18:38] LABS: INR 1.08
[2017-02-20 18:45] LABS: ANION GAP 3 MEQ/L (8-16); BLOOD UREA NITROGEN 19 MG/DL (7-18); CALCIUM LEVEL 8.5 MG/DL (8.5-10.1); CARBON DIOXIDE LEVEL 31 MEQ/L (21-32); CHLORIDE LEVEL 101 MEQ/L (98-107); CREATININE FOR GFR 0.58 MG/DL (0.70-1.30); GLOMERULAR FILTRATION RATE > 60.0 (>56); GLUCOSE, FASTING 92 MG/DL (70-105); MAGNESIUM LEVEL 2.1 MG/DL (1.8-2.4); POTASSIUM SERUM 4.2 MEQ/L (3.5-5.1); SODIUM LEVEL 135 MEQ/L (136-145)
[2017-02-20] MEDS ORDERED: ISOVUE-370 76% 100ML VIAL (Q9967) As Ordered ONE (18:55)
[2017-02-20] MEDS: HYDROmorphone HCL 1 MG/ML SYRINGE (J1170) IV PRN ×2 (19:40→20:09)
--- NOTE | 2017-02-20 19:46 | REP ---
CT Head without contrast HISTORY: Abdominal pain COMPARISON: 01/04/2017 There is no intraparenchymal hemorrhage, acute infarct, mass or midline shift. The ventricular system is normal in appearance. There is no extra cerebral collection. There is no fracture. Mucosal thickening is present in the left sphenoid sinus. IMPRESSION: There is no intracranial lesion. Signed by Rian López MD 02/20/2017 07:37 P
--- NOTE | 2017-02-20 19:50 | REPUSA ---
CT of the abdomen and pelvis with contrast Clinical statement: Pain. Technique: Multiple axial CT images were obtained from the base of the lungs through the floor of the pelvis utilizing 5 mm axial slices after administration of oral and nonionic intravenous contrast. C oronal and sagittal reconstructions were also obtained. Comparison: 01/15/2017. Findings: Chest: The visualized lung bases are clear. Abdomen: The liver, spleen, pancreas, and adrenal glands are unremarkable. A 1 cm simple cyst is seen in the upper right kidney. A 9 mm nonobstructing stone is seen in the lower right renal collecting s ystem. There is no evidence of hydronephrosis. The aorta is within normal limits. There is no evidenc e of abdominal lymphadenopathy or ascites. A percutaneous gastrostomy tube appears in satisfactory po sition within the stomach. Pelvis: The bowel is unremarkable, with no obstructive or inflammatory changes. The urinary bladder i s within normal limits. The other pelvic structures appear grossly intact. There is no evidence of pe lvic lymphadenopathy or ascites. Bones: There are no suspicious osseous abnormalities seen. Surgical fusion changes at L5/S1 are intac t. Impression: 1. No obstructive or inflammatory bowel changes. 2. No evidence of hydronephrosis. 9 mm stone in the lower right renal collecting system. Simple right renal cyst. 3. Percutaneous gastrostomy tube is in place. 4. Stable surgical fusion changes at L5/S1. 5. The other postsurgical changes seen on the prior study have resolved.
--- NOTE | 2017-02-20 19:58 | REP ---
Chest two views HISTORY: Fever Comparison: 01/04/1970 Linear densities are present in the right lower lobe consistent with scar. The left lung is clear. The heart is normal in size. The pulmonary vasculature is normal in appearance. The bony structure is intact. IMPRESSION: Right lower lobe scar. Signed by Rian López MD 02/20/2017 07:49 P
[2017-02-20 21:02] VITALS: BP 86/54
[2017-02-20] MEDS ORDERED: KEFL500C17 PO (21:38)
--- NOTE | 2017-02-21 08:28 | ECGEPIP ---
Stationary ECG Study [facility] - ED Test Date: 2017-02-20 Pat Name: GRAHAM COLEMAN Department: Room: - Gender: M Extracorporeal Technician: ct : 1965 Requested By: CYNTHIA AMIN PA-C. Order Number: [id number] Reading MD: Smith Enamorado Measurements Intervals [place] Rate: 58 P: 76 IL: 182 QRS: -18 QRSD: 96 T: 59 QT: 405 QTc: 398 Interpretive Statements SINUS BRADYCARDIA SIMILAR TO 02/01/17 Electronically Signed On 02-21-2017 8:28:37 EDT by Smith Enamorado
[2017-03-18] MEDS ORDERED: K-TA1TAB PO (08:37)
[2017-03-18] MEDS ORDERED: VANC125C2 PO (08:41)
[2017-03-26] MEDS ORDERED: FLAG500T PO (09:00)
[2017-03-28] MEDS ORDERED: VANC125C2 PO (13:36)
[2017-03-28] MEDS ORDERED: METR1TAB66 PO (13:36)
[2017-03-28] MEDS ORDERED: POTA20TA PO (13:36)
== END 2017-02-20 21:59 | disposition left against medical advice (07) ==
LOC: M ED 14:04
DX: R55 Syncope and collapse (principal); R00.1 Bradycardia, unspecified; N20.0 Calculus of kidney; N28.1 Cyst of kidney, acquired; Z93.1 Gastrostomy status; Z79.899 Other long term (current) drug therapy

== ENCOUNTER 2017-02-21 08:56 | Inpatient (IN) | payer MEDICARE ==
[~2017-02-21] VITALS: Ht 180.3 cm; Wt 63.4 kg
[~2017-02-21 08:56] MED LIST changes: +KEFL500C17 PO; +RISATAB3 PO
[2017-02-21] MEDS ORDERED: NS 1,000 ML IV ONE (09:30)
[2017-02-21] MEDS ORDERED: ONDANSETRON 4MG/2ML VIAL (J2405) IV ONE (09:30)
[2017-02-21] MEDS: MORPHINE 4 MG/ML 1ML SYRINGE IV PRN ×2 (10:10→11:44)
[2017-02-21 10:16] LABS: BASO % 0.9 % (0.0-1.0); EOS # 0.1 10^3/uL (0.0-0.50); IMMATURE GRANULOCYTE % 0.3 % (0-0); LYMPH # 0.8 10^3/uL (1.5-4.5); LYMPH % 23.9 % (24.0-44.0); MEAN CORPUSCULAR HGB CONC 31.9 g/dl (32.0-36.5); MONO # 0.3 10^3/uL (0.0-0.8); MONO % 7.6 % (0.0-5.0); NEUTROPHILS # 2.2 10^3/uL (1.8-7.7); NEUTROPHILS % 65.3 % (36.0-66.0); PLATELET COUNT, AUTOMATED 233 10^3/uL (150-450); WHITE BLOOD COUNT 3.4 10^3/uL (4.0-10.0)
[2017-02-21 10:26] LABS: INR 1.09
--- NOTE | 2017-02-21 10:26 | REP ---
Chest one-view HISTORY: Fall Comparison: 02/20/2017 Linear densities are present in the right lower lobe consistent with scar. The left lung is clear. The heart is normal in size. The pulmonary vasculature is normal in appearance. Impression: Right lower lobe scar. Signed by Rian López MD 02/21/2017 10:17 A
[2017-02-21 10:40] LABS: ALBUMIN 2.5 GM/DL (3.2-5.2); ALBUMIN/GLOBULIN RATIO 0.56 (1.00-1.93); ALKALINE PHOSPHATASE 71 U/L (45-117); ALT/SGPT 19 U/L (12-78); AMYLASE 26 U/L (25-115); ANION GAP 5 MEQ/L (8-16); AST/SGOT 20 U/L (15-37); BILIRUBIN,DIRECT 0.1 MG/DL (0.0-0.2); BILIRUBIN,TOTAL 0.3 MG/DL (0.2-1.0); BLOOD UREA NITROGEN 17 MG/DL (7-18); CARBON DIOXIDE LEVEL 28 MEQ/L (21-32); CHLORIDE LEVEL 104 MEQ/L (98-107); CREATININE FOR GFR 0.57 MG/DL (0.70-1.30); GLOMERULAR FILTRATION RATE > 60.0 (>56); GLUCOSE, FASTING 79 MG/DL (70-105); POTASSIUM SERUM 4.1 MEQ/L (3.5-5.1); SODIUM LEVEL 137 MEQ/L (136-145)
--- NOTE | 2017-02-21 11:09 | REP ---
CT Head without contrast HISTORY: Fall COMPARISON: 02/20/2017 There is no intraparenchymal hemorrhage, acute infarct, mass or midline shift. The ventricular system is normal in appearance. There is no extra cerebral collection. There is no fracture. Mucosal thickening is present in the left sphenoid sinus. IMPRESSION: There is no intracranial lesion. Signed by Rian López MD 02/21/2017 11:01 A
[2017-02-21] MEDS ORDERED: MORPHINE 4 MG/ML 1ML SYRINGE IV ONE (11:45)
--- NOTE | 2017-02-21 12:02 | REP ---
CT ABDOMEN AND PELVIS WITH CONTRAST: HISTORY: Abdominal pain. COMPARISON: 02/20/2017. The patient is status post cholecystectomy and gastric bypass. A gastrostomy tube is present in the stomach. A 1.9 cm cyst is present in the upper pole of the right kidney. Calcification is present in the right kidney consistent with nephrolithiasis. The liver, pancreas, spleen, adrenal glands and left kidney are normal in appearance. There is no mass, adenopathy or free fluid. The visualized lungs are clear. The prostate gland is normal in appearance. There are no filing defects in the urinary bladder. The patient is status post L5-S1 anterior and posterior spinal fusion and laminectomy. IMPRESSION: 1. The patient is status post cholecystectomy and gastric bypass. A gastrostomy tube is presence in the stomach. 2. 1.9 cm right renal cyst. 3. Right nephrolithiasis. Signed by Rian López MD 02/21/2017 12:04 P
[2017-02-21] MEDS ORDERED: MORPHINE 2 MG/ML 1ML SYRINGE As Ordered ONE (14:07)
[2017-02-21] MEDS: NS 1,000 ML IV SCH (14:26)
[2017-02-21] MEDS: MORPHINE 2 MG/ML 1ML SYRINGE IV PRN ×3 (14:26→22:46)
--- NOTE | 2017-02-21 14:56 | HPEPDOC ---
General Date of Admission Feb 21, 2017 Primary Care Physician: ANDRE BRYAN MD [facility] Attending Physician: JENAE PERKINS Chief Complaint The patient is a 51-year-old male admitted with a reason for visit of Abd Pain x 4 days Source: Patient Exam Limitations: No limitations History of Present Illness This is a 51-year-old male with a pertinent past medical history of [facility] status post gastric bypass 4 years ago with a weight loss of 200+ pounds, subsequent malnutrition status post gastric tube placement who recently discharged from [facility] on 02/06/17 for intractable abdominal pain. The patient states in the last 4 days he has noticed his chronic abdominal pain getting more severe and unmanageable. He takes oxycodone 20 mg every 4 hour and he states is not enough. The patient states he had 3 episodes of vomiting last night accompanied with nausea. He denies having any blood or any food in his vomit, just clear in color. Patient states he is eating more than normal such as eating peanut butter and jelly cottage cheese soup and ice cream. He still also using his PEG tube. He states he uses two symone for 16 hours. The patient states in the last 2 days he is also have fell and hit his head both times. Patient is unsure on how he fell. States he didn't feel lightheaded, dizziness or unsteady before he fell. The patient came to the ER last night after the first fall and had imaging done which was negative for any intracranial lesions. He denies having any fever or chills at home but he does admit of having 100.1 temperature here at the ER, yesterday. But he has been afebrile since then. Patient denies having any sick contact or having any upper respiratory symptoms. The patient states he hasn't taken his medication last 24 hours except for his oxycodone 20 mg. Patient does admit decreased by mouth intake of fluids. He is urinating fine, julieth in color denies having any dysuria or urinary frequency. The patient is accompanied with his this visit. On 01/15/17 patient had pneumoperitoneum 2/2 perforated gastric ulcer. The patient was transferred to [facility], where he had a laparotomy and was discharged home on 01/30/17. Prior to discharge the patient states that he was feeling well, and tolerating a by mouth diet without any acute complaints. The patient was recently seen here at [facility] on 02/01/17 and was admitted for intractable abdominal pain, nausea and vomiting. These all were resolved throughout the hospital course. Pain management was on board and helped control the patient's pain. There was no leukocytosis or lactic acidosis throughout the hospital course. CT scan of his abdomen and pelvis that was acquired upon admission revealed his previous ascites and pneumoperitoneum had resolved. There is no obvious acute abdominopelvic pathology that was noted. Postoperative changes were noted. The patient was discharged on 02/06/17 stable and tolerating PO food. Home Medications Scheduled (Thu-Bid Probiotic) 1 Tab Tab, 1 TAB PO DAILY, (Reported) Cholecalciferol (Vitamin D-3) 2,000 Unit Tab, 2,000 UNIT PO DAILY, (Reported) Cyanocobalamin (Vitamin B-12) 500 Mcg Tab, 500 MCG PO DAILY, (Reported) Multivitamins Chewable *[facility] STOCKED* (Animal Shapes with C & FA *[facility] STOCKED*) 1 Tab Chew, 1 TAB PO DAILY, (Reported) Omeprazole (Omeprazole) 40 Mg Cap, 40 MG PO DAILY, (Reported) Senna (Senna Lax) 8.6 Mg Tab, 1 TAB PO DAILY, (Reported) Sucralfate (Sucralfate) 1 Gm/10 Ml Mariia, 10 ML PO QID, (Reported) Scheduled PRN Ondansetron (Zofran Odt) 4 Mg Tab, 4 MG PO Q4H PRN for NAUSEA, (Reported) Oxycodone Hcl (Oxycodone HCl) 20 Mg Tab, 20 MG PO Q4H PRN for PAIN, (Reported) Allergies Coded Allergies: No Known Allergies (Verified , 10/12/16) Past Medical History Medical History 1. Morbid obesity status post gastric bypass 4 years ago, 2. Subsequent malnutrition status post gastric tube placement, 3. Depression, 4. 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 Pneumoperitoneum 2/2 perforated gastric ulcer on 12/2016 Surgical History 1. Deysi-en-Y gastrojejunostomy in May 2012. 2. Back surgery in July 2013. 3. Appendectomy. 4. Cholecystectomy. 5. Feeding tubes, most recent one was changed in 12/2016 when a larger and more flexible tube was put in. 6. Right arm tendon repair. 7. Right hand surgery. 8. Lumbar epidural steroid injection in 2005. 9. Upper GI endoscopy in 2013. He was found to have an ulceration at the site of anastomosis with scar, friable mucosa. 10. Laparotomy for pneumoperitoneum 2/2 perforated gastric ulcer on 12/2016 Family History Significant Family History: Noncontributory Social History * Smoker: current smoker Alcohol: Denies Drugs: denies Review of Symptoms Constitutional: Denies: Chills, Fever, Night Sweats Eyes: Reports: Vision change (chronic blurriness and diplopia), Denies: Pain ENT: Reports: Head Aches, Denies: Ear Pain, Dysphagia Skin: Denies: Rash, Lesions, Breakdown Pulmonary: Denies: Dyspnea, Cough Cardiovascular: Denies: Chest Pain, Palpitations, Orthopnea, Paroxysmal Noc. Dyspnea, Lt Headedness Gastrointestinal: Reports: Nausea, Vomiting (3 episodes), Abdominal Pain ( chronic, more severe 4 days), Denies: Diarrhea, Constipation Genitourinary: Denies: Dysuria, Frequency, Incontinence, Retention Hematologic: Denies: Bruising, Bleeding Excessively Musculoskeletal: Denies: Neck Pain, Back Pain, Joint Pain, Muscle Pain, Spasms Neurological: Denies: Weakness, Numbness, Change in speech, Confusion Psych: Reports: Mood Normal, Denies: Depression, Memory Issues Physical Examination General Exam: Positive: Alert, No Acute Distress Eye Exam: Positive: PERRLA, Conjunctiva & lids normal, EOMI, Negative: Sclera icteric ENT Exam: Positive: Mucous membr. moist/pink, Pharynx Normal, Other ENT (poor dentitions), Negative: Atraumatic (small abrasions appreciated on the right upper forehead. Nontender.) Neck Exam: Positive: Supple, Negative: JVD, thyromegaly Chest Exam: Positive: Clear to auscultation, Normal air movement Heart Exam: Positive: Rate Normal, Regular Rhythm, Normal S1, Normal S2, Negative: Murmurs, Rubs Telemetry: Positive: No significant arrhythmia Abdomen Exam: Positive: Normal bowel sounds, Soft, Tenderness (tenderness of right lower quadrant, no rebounding, no guarding appreciated), Other (upper abdominal area covered by bandage. PEG tube can be seen. ), Negative: Hepatospenomegaly Extremity Exam: Positive: Normal pulses, Negative: Clubbing, Cyanosis, Edema Skin Exam: Positive: Nl turgor and temperature, Negative: Breakdown, Lesion Psych Exam: Positive: Mental status NL, Mood NL, Oriented x 3 Vital Signs Vital Signs Date Time Temp Pulse Resp B/P (MAP) Pulse Ox O2 Delivery O2 Flow Rate FiO2 02/21/17 12:08 66 16 134/78 100 Room Air 02/21/17 08:56 98.8 Laboratory Data Labs 24H Laboratory Tests 2 02/21/17 09:21: Immature Granulocyte % (Auto) 0.3H, White Blood Count 3.4L, Red Blood Count 3.24L, Hemoglobin 9.4L, Hematocrit 29.5L, Mean Corpuscular Volume 91.0, Mean Corpuscular Hemoglobin 29.0, Mean Corpuscular Hemoglobin Concent 31.9L, Red Cell Distribution Width 14.0, Platelet Count 233, Neutrophils (%) (Auto) 65.3, Lymphocytes (%) (Auto) 23.9L, Monocytes (%) (Auto) 7.6H, Eosinophils (%) (Auto) 2.0, Basophils (%) (Auto) 0.9, Neutrophils # (Auto) 2.2, Lymphocytes # (Auto) 0.8L, Monocytes # (Auto) 0.3, Eosinophils # (Auto) 0.1, Basophils # (Auto) 0.0, Immature Granulocyte # (Auto) 0.0, Nucleated Red Blood Cells % (auto) 0.0, Prothrombin Time 14.3, Prothromb Time International Ratio 1.09, Activated Partial Thromboplast Time 41.4H, Anion Gap 5L, Glomerular Filtration Rate > 60.0 , Lactic Acid Level 1.3, Calcium Level 8.0L, Aspartate Amino Transf (AST/SGOT) 20, Alanine Aminotransferase (ALT/SGPT) 19, Alkaline Phosphatase 71, Total Bilirubin 0.3, Direct Bilirubin 0.1, Total Creatine Kinase 36L, Creatine Kinase MB 1.0, Creatine Kinase MB Relative Index 2.77, Troponin I < 0.02, Total Protein 7.0, Albumin 2.5L, Albumin/Globulin Ratio 0.56L, Amylase Level 26, Lipase 46L 02/21/17 12:23: CBC/BMP Laboratory Tests 02/21/17 09:21 Red Blood Count 3.24 L, Mean Corpuscular Volume 91.0, Mean Corpuscular Hemoglobin 29.0, Mean Corpuscular Hemoglobin Concent 31.9 L, Red Cell Distribution Width 14.0, Neutrophils (%) (Auto) 65.3, Lymphocytes (%) (Auto) 23.9 L, Monocytes (%) (Auto) 7.6 H, Eosinophils (%) (Auto) 2.0, Basophils (%) ( Auto) 0.9, Neutrophils # (Auto) 2.2, Lymphocytes # (Auto) 0.8 L, Monocytes # ( Auto) 0.3, Eosinophils # (Auto) 0.1, Basophils # (Auto) 0.0 Microbiology Microbiology 02/21/17 Blood Culture, Received Pending Assessment/Plan 1. Abdominal Pain - CT scan showed a1.9 cm right renal cyst and Right nephrolithiasis. The pain is likely due to the recurrence of the patient's chronic abdominal pain. For the pain we will give IV hydration 80mls per hour. No leukocytosis, afebrile today, and lactic acid levels wNL. Contining the patient's pain medication at home, oxycodone, and will add IV morphine 2 mg every 4 hours as needed for severe pain. Will be following pain management's recommendation from most recent consult from last admission this past week. If pain is not managed well will consider consulting pain management again on Thursday. 2. Failure to thrive/malnutrition- Clear liquids and tube feed, same rate as home. We'll supplement the patient with Ensures at each meal as well. We have consulted dietary, will await recommendations. 3. History of recent falls - most recent imaging from the ER for negative for any intracranial lesions. Have consulted PT and OT to evaluate and treat. 4. Nausea/vomiting. We'll continue with IV hydration 80 mL per hour. patient will also continue Zofran. Continue home carafate. 5. History of GERD - Cont PPI 6. History of recurrent visits to the ED for chronic abdominal pain - case management has been consulted. 7. DVT prophylaxis - Teds and sequential's Plan / VTE VTE Prophylaxis Ordered?: Yes GME ATTESTATION GME ATTESTATION My preceptor for this patient encounter was physically present in the building during the encounter and was fully available. As needed, all aspects of the patient interview, examination, medical decision making process, and medical care plan development were reviewed and approved by the preceptor. Preceptor is aware and concurs with the plan as stated in the body of this note and will attest to such by his/her cosignature. ATTENDING NOTE I have seen and examined the above patient and agree with the H and P as documented above. MELONIE ROJAS, Feb 21, 2017 12:33 JENAE PERKINS Feb 21, 2017 17:46
[2017-02-21] MEDS ORDERED: MULTIVITAMINS/MINERALS THERAP 1 TAB PO ONE (15:00)
[2017-02-21 15:09] VITALS: BP 102/64
[2017-02-21] MEDS: CYANOCOBALAMIN 500 MCG TAB PO SCH (16:41)
[2017-02-21] MEDS: oxyCODONE 5MG TAB PO PRN ×2 (16:41→20:56)
[2017-02-21] MEDS: SENNA 8.6 MG TAB (SENOKOT) PO SCH (16:41)
[2017-02-21] MEDS: OMEPRAZOLE 20 MG CAP PO SCH (16:41)
[2017-02-21] MEDS: LACTOBACILLUS ACIDOPHILUS CAP (BACID) PO SCH (16:42)
[2017-02-21] MEDS: MULTIVITAMINS CHILDREN'S CHEWABLE TABLET PO SCH (16:42)
[2017-02-21] MEDS ORDERED: ONDANSETRON 4MG/2ML VIAL (J2405) IV PRN (17:30)
[2017-02-21] MEDS: SUCRALFATE SUSP 1GM/10ML UD PO SCH ×2 (18:03→20:56)
--- NOTE | 2017-02-21 21:46 | ECGEPIP ---
Stationary ECG Study [facility] - ED Test Date: 2017-02-21 Pat Name: GRAHAM COLEMAN Department: Room: - Gender: M Representative Personal Service: andrew : 1965 Requested By: Dorota Garcia Order Number: [id number] Reading MD: Smith Enamorado Measurements Intervals [place] Rate: 62 P: 63 AK: 168 QRS: -41 QRSD: 84 T: 42 QT: 386 QTc: 394 Interpretive Statements SINUS RHYTHM LEFT AXIS DEVIATION SIMILAR TO PRIOR ON SAME DATE Electronically Signed On 02-21-2017 21:46:02 EDT by Smith Enamorado
[2017-02-21 22:00] VITALS: BP 110/62
[2017-02-22] MEDS: oxyCODONE 5MG TAB PO PRN ×6 (00:59→22:20)
[2017-02-22] MEDS: NS 1,000 ML IV SCH ×2 (01:00→13:36)
[2017-02-22] MEDS: MORPHINE 2 MG/ML 1ML SYRINGE IV PRN ×5 (02:57→20:18)
[2017-02-22 06:00] VITALS: BP 98/60
[2017-02-22 06:52] LABS: MEAN CORPUSCULAR HEMOGLOBIN 28.2 pg (27.0-33.0); MEAN CORPUSCULAR HGB CONC 31.3 g/dl (32.0-36.5); MEAN CORPUSCULAR VOLUME 89.9 fl (80.0-96.0); RED CELL DISTRIBUTION WIDTH 13.9 % (11.5-14.5); WHITE BLOOD COUNT 4.5 10^3/uL (4.0-10.0)
[2017-02-22 07:16] LABS: ANION GAP 5 MEQ/L (8-16); BLOOD UREA NITROGEN 13 MG/DL (7-18); CALCIUM LEVEL 7.7 MG/DL (8.5-10.1); CARBON DIOXIDE LEVEL 27 MEQ/L (21-32); CHLORIDE LEVEL 108 MEQ/L (98-107); CREATININE FOR GFR 0.38 MG/DL (0.70-1.30); GLOMERULAR FILTRATION RATE > 60.0 (>56); GLUCOSE, FASTING 81 MG/DL (70-105); MAGNESIUM LEVEL 1.9 MG/DL (1.8-2.4); POTASSIUM SERUM 3.8 MEQ/L (3.5-5.1); SODIUM LEVEL 140 MEQ/L (136-145)
[2017-02-22 07:50] VITALS: BP 100/68
[2017-02-22] MEDS: SUCRALFATE SUSP 1GM/10ML UD PO SCH ×4 (07:58→20:18)
[2017-02-22] MEDS: OMEPRAZOLE 20 MG CAP PO SCH (07:59)
[2017-02-22] MEDS: MULTIVITAMINS CHILDREN'S CHEWABLE TABLET PO SCH (07:59)
[2017-02-22] MEDS: VITAMIN D 1,000 INTERNATIONAL UNITS TABLET PO SCH (07:59)
[2017-02-22] MEDS: CYANOCOBALAMIN 500 MCG TAB PO SCH (08:00)
[2017-02-22] MEDS: SENNA 8.6 MG TAB (SENOKOT) PO SCH (08:00)
[2017-02-22] MEDS: LACTOBACILLUS ACIDOPHILUS CAP (BACID) PO SCH (08:01)
--- NOTE | 2017-02-22 13:37 | IPNPDOC ---
Date Seen The patient was seen on 02/22/17. Progress Note SUBJECTIVE: Patient is a 51-year-old gentleman familiar to the hospitalist service and is a patient of Dr. Marrero presents to the emergency department yesterday with increasing abdominal pain for 4 days. He is noted to be poorly compliant with his PEG tube feedings had episodes of vomiting. He denies any hematemesis. No hematochezia or melena. Denies chest pain, outpatient, shortness of breath, productive sputum, cough or night fevers, chills. OBJECTIVE PHYSICAL EXAMINATION: VITAL SIGNS: Please see below. GENERAL: [No acute distress, alert, pleasant] HEENT: [PERRLA. Throat clear. Neck supple, no JVD. Muscle wasting noted at the cheeks and neck with severe cachexia] CARDIOVASCULAR: [Regular rate and rhythm]. RESPIRATORY: [GERD auscultation]. ABDOMINAL: [Soft, nontender, nondistended positive bowel sounds] EXTREMITIES: [No edema, no calf tenderness] NEUROLOGICAL: [Cranial nerves II through XII grossly intact] PSYCHOLOGICAL: [Negative] LABORATORY DATA: Please see below. DVT prophylaxis ordered?: [Yes] ASSESSMENT AND PLAN: This is a 51-year-old male seen at bedside. Abdominal pain seems to be lessened since yesterday. He is requesting advances diet. PROBLEMS: 1. Abdominal Pain - likely multifactorial and acute on chronic. He does appear to be better controlled at this time. We'll see if we can advance his diet. Should he continue to have problems with his chronic abdominal pain may want to consider a pain management consult on Thursday. 2. Failure to thrive/malnutrition- advance diet. Continue with PEG tube feedings and request dietary consult. 3. History of recent falls -PT, OT evaluations pending. 4. Nausea/vomiting. Okayed to continue with IV hydration 80 mL per hour. Continue Zofran, Carafate 5. History of GERD - Cont PPI 6. History of recurrent visits to the ED for chronic abdominal pain - case management has been consulted. 7. DVT prophylaxis - Teds and sequential's DISPOSITION: We'll attempt to get better fidelity regarding tube feedings. Pain control. Consult pain management if need be, on Thursday. And await PT, OT evaluations and recommendations. PFS consult VS, I&O, 24H, Fishbone Vital Signs/I&O Vital Signs Date Time Temp Pulse Resp B/P (MAP) Pulse Ox O2 Delivery O2 Flow Rate FiO2 02/22/17 12:17 16 100/68 02/22/17 06:00 97.5 63 99 Room Air I&O- Last 24 Hours up to 6 AM 02/23/17 06:00 Intake Total 360 ml Output Total 0 ml Balance 360 ml Laboratory Data 24H LABS Laboratory Tests 2 02/22/17 06:01: Anion Gap 5L, Glomerular Filtration Rate > 60.0, Blood Urea Nitrogen 13, Creatinine 0.38L, Sodium Level 140, Potassium Level 3.8, Chloride Level 108H, Carbon Dioxide Level 27, Calcium Level 7.7L, Magnesium Level 1.9 CBC/BMP Laboratory Tests 02/22/17 06:01 Red Blood Count 2.98 L, Mean Corpuscular Volume 89.9, Mean Corpuscular Hemoglobin 28.2, Mean Corpuscular Hemoglobin Concent 31.3 L, Red Cell Distribution Width 13.9, Calcium Level 7.7 L Microbiology Microbiology 02/21/17 Blood Culture - Preliminary, Resulted 02/21/17 Urine Culture - Final, Complete CYNTHIA JEREZ DO Feb 22, 2017 13:37
[2017-02-22 14:00] VITALS: BP 104/68
[2017-02-22 22:00] VITALS: BP 97/64
[2017-02-23] MEDS: MORPHINE 2 MG/ML 1ML SYRINGE IV PRN ×6 (00:17→20:36)
[2017-02-23] MEDS: NS 1,000 ML IV SCH ×2 (00:18→12:36)
[2017-02-23] MEDS: oxyCODONE 5MG TAB PO PRN ×6 (02:16→22:38)
[2017-02-23 06:00] VITALS: BP 95/64
[2017-02-23 07:04] LABS: MEAN CORPUSCULAR HEMOGLOBIN 29.1 pg (27.0-33.0); MEAN CORPUSCULAR VOLUME 90.9 fl (80.0-96.0); RED CELL DISTRIBUTION WIDTH 13.9 % (11.5-14.5); WHITE BLOOD COUNT 5.8 10^3/uL (4.0-10.0)
[2017-02-23 07:26] LABS: ANION GAP 5 MEQ/L (8-16); BLOOD UREA NITROGEN 11 MG/DL (7-18); CALCIUM LEVEL 7.5 MG/DL (8.5-10.1); CARBON DIOXIDE LEVEL 28 MEQ/L (21-32); CHLORIDE LEVEL 106 MEQ/L (98-107); CREATININE FOR GFR 0.43 MG/DL (0.70-1.30); GLOMERULAR FILTRATION RATE > 60.0 (>56); GLUCOSE, FASTING 88 MG/DL (70-105); MAGNESIUM LEVEL 1.8 MG/DL (1.8-2.4); POTASSIUM SERUM 3.8 MEQ/L (3.5-5.1); SODIUM LEVEL 139 MEQ/L (136-145)
[2017-02-23] MEDS: SENNA 8.6 MG TAB (SENOKOT) PO SCH (08:36)
[2017-02-23] MEDS: OMEPRAZOLE 20 MG CAP PO SCH (08:36)
[2017-02-23] MEDS: CYANOCOBALAMIN 500 MCG TAB PO SCH (08:36)
[2017-02-23] MEDS: LACTOBACILLUS ACIDOPHILUS CAP (BACID) PO SCH (08:36)
[2017-02-23] MEDS: VITAMIN D 1,000 INTERNATIONAL UNITS TABLET PO SCH (08:37)
[2017-02-23] MEDS: MULTIVITAMINS CHILDREN'S CHEWABLE TABLET PO SCH (08:37)
[2017-02-23] MEDS: SUCRALFATE SUSP 1GM/10ML UD PO SCH ×4 (08:38→20:36)
[2017-02-23 14:00] VITALS: BP 95/63
--- NOTE | 2017-02-23 20:40 | REP ---
Anterior abdominal sonography: History: Surgery January 16. Now with a red painful area over incision on abdomen. Findings: Focused sonographic scanning at the area of the incision shows no evidence of drainable fluid collection. There is a thin ribbon of hypoechoic tissue beneath the incision 4.9 cm in craniocaudal span by 1.4 cm anterior to posterior. This may reflect inflammatory tissue. There is a linear echogenic structure along the inferior aspect of this with two parallel linear margins suggesting a suture or staple. This is of 6-7 mm in length. Impression: 1. No drainable fluid collection. 2. Inflammatory hypoechoic linear area beneath the incision. A linear echogenic structure is seen in this region; may be a suture or staple. Signed by Steven Fontaine MD 02/24/2017 09:30 A
[2017-02-23 22:00] VITALS: BP 96/66
[2017-02-24] MEDS: MORPHINE 2 MG/ML 1ML SYRINGE IV PRN ×6 (00:38→21:09)
[2017-02-24] MEDS: oxyCODONE 5MG TAB PO PRN ×6 (02:34→23:00)
[2017-02-24] MEDS: NS 1,000 ML IV SCH ×3 (02:35→22:02)
[2017-02-24 06:00] VITALS: BP 105/73
[2017-02-24 06:42] LABS: MEAN CORPUSCULAR HEMOGLOBIN 28.9 pg (27.0-33.0); MEAN CORPUSCULAR HGB CONC 31.9 g/dl (32.0-36.5); MEAN CORPUSCULAR VOLUME 90.8 fl (80.0-96.0); WHITE BLOOD COUNT 4.8 10^3/uL (4.0-10.0)
[2017-02-24 06:56] LABS: ANION GAP 4 MEQ/L (8-16); BLOOD UREA NITROGEN 9 MG/DL (7-18); CALCIUM LEVEL 7.7 MG/DL (8.5-10.1); CARBON DIOXIDE LEVEL 29 MEQ/L (21-32); CHLORIDE LEVEL 105 MEQ/L (98-107); CREATININE FOR GFR 0.43 MG/DL (0.70-1.30); GLOMERULAR FILTRATION RATE > 60.0 (>56); GLUCOSE, FASTING 83 MG/DL (70-105); MAGNESIUM LEVEL 1.9 MG/DL (1.8-2.4); POTASSIUM SERUM 3.9 MEQ/L (3.5-5.1); SODIUM LEVEL 138 MEQ/L (136-145)
[2017-02-24 08:30] VITALS: BP 104/62
[2017-02-24 08:42] VITALS: BP 104/62
[2017-02-24] MEDS ORDERED: AUGMENTIN 875 MG TAB GT SCH (09:00)
[2017-02-24] MEDS: SUCRALFATE SUSP 1GM/10ML UD PO SCH ×4 (09:00→20:18)
[2017-02-24] MEDS: SENNA 8.6 MG TAB (SENOKOT) PO SCH (09:44)
[2017-02-24] MEDS: LACTOBACILLUS ACIDOPHILUS CAP (BACID) PO SCH (09:44)
[2017-02-24] MEDS: VITAMIN D 1,000 INTERNATIONAL UNITS TABLET PO SCH (09:45)
[2017-02-24] MEDS: CYANOCOBALAMIN 500 MCG TAB PO SCH (09:45)
[2017-02-24] MEDS: OMEPRAZOLE 20 MG CAP PO SCH (09:45)
[2017-02-24] MEDS: MULTIVITAMINS CHILDREN'S CHEWABLE TABLET PO SCH (09:46)
--- NOTE | 2017-02-24 10:46 | IPNPDOC ---
Subjective Date Seen The patient was seen on 02/23/17. Subjective Chief Complaint/HPI The patient is a 51-year-old male admitted with a reason for visit of Failure To Thrive Intractable Abd Pain. Events since last encounter Patient was seen and examined this morning at bedside. The patient states his pain is managed well when his pain medication is given at the scheduled time. The patient states he is having normal BM movement. Abdominal pain is persistent is tolerable with pain medication. Per nursing, the patient has no overnight events. Objective Physical Examination General Exam: Positive: Alert, No Acute Distress Eye Exam: Positive: PERRLA, Conjunctiva & lids normal, EOMI, Negative: Sclera icteric ENT Exam: Positive: Mucous membr. moist/pink, Pharynx Normal, Other ENT (poor dentitions), Negative: Atraumatic (small abrasions appreciated on the right upper forehead. Nontender.) Neck Exam: Positive: Supple, Negative: JVD, thyromegaly Chest Exam: Positive: Clear to auscultation, Normal air movement Heart Exam: Positive: Rate Normal, Regular Rhythm, Normal S1, Normal S2, Negative: Murmurs, Rubs Telemetry: Positive: No significant arrhythmia Abdomen Exam: Positive: Normal bowel sounds, Soft, Tenderness (tenderness of right lower quadrant, no rebounding, no guarding appreciated), Other (upper abdominal area covered by bandage. PEG tube can be seen. ), Negative: Hepatospenomegaly Extremity Exam: Positive: Normal pulses, Negative: Clubbing, Cyanosis, Edema Skin Exam: Positive: Nl turgor and temperature, Negative: Breakdown, Lesion Psych Exam: Positive: Mental status NL, Mood NL, Oriented x 3 Assessment /Plan Assessment 1. Abdominal Pain - likely multifactorial and acute on chronic. Patient is tolerating his PO meal and his nightly tube feeds. Should he continue to have problems with his chronic abdominal pain may want to consider a pain management consult on Thursday. There is some concern on the patients last admission, where he was found to have his PO oxycodone in his pocket and requesting specifically for IV Pain medication this admission. The patient does have follow up with out patient pain management, will consult them today or tomorrow to request input on how to manage him outpatient. 2. Failure to thrive/malnutrition- advance diet. Continue with PEG tube feedings and request dietary consult. 3. History of recent falls -PT evaluated the patient and cleared him to go when medical optimized. 4. Nausea/vomiting. Continue with IV hydration 80 mL per hour. Continue Zofran, Carafate 5. History of GERD - Cont PPI 6. History of recurrent visits to the ED for chronic abdominal pain - case management has been consulted. Will contact the patient PCP to establish better outpatient follow up. and transition the patient better from out IV meds to only PO meds before discharge. 7. DVT prophylaxis - Teds and sequential's Plan/VTE VTE Prophylaxis Ordered?: Yes VS, I&O, 24H, Fishbone Vital Signs/I&O Vital Signs Date Time Temp Pulse Resp B/P (MAP) Pulse Ox O2 Delivery O2 Flow Rate FiO2 02/23/17 12:32 16 02/23/17 06:46 96.7 63 97/64 96 Room Air I&O- Last 24 Hours up to 6 AM 02/24/17 06:00 Intake Total 120 ml Output Total 300 ml Balance -180 ml Laboratory Data 24H LABS Laboratory Tests 2 02/23/17 06:38: Anion Gap 5L, Glomerular Filtration Rate > 60.0, Blood Urea Nitrogen 11, Creatinine 0.43L, Sodium Level 139, Potassium Level 3.8, Chloride Level 106, Carbon Dioxide Level 28, Calcium Level 7.5L, Magnesium Level 1.8 CBC/BMP Laboratory Tests 02/23/17 06:38 Red Blood Count 2.85 L, Mean Corpuscular Volume 90.9, Mean Corpuscular Hemoglobin 29.1, Mean Corpuscular Hemoglobin Concent 32.0, Red Cell Distribution Width 13.9, Calcium Level 7.5 L Microbiology Microbiology 02/23/17 Blood Culture, Received Pending 02/23/17 Blood Culture, Received Pending 02/21/17 Blood Culture - Preliminary, Resulted 02/21/17 Urine Culture - Final, Complete GME ATTESTATION GME ATTESTATION My preceptor for this patient encounter was physically present in the building during the encounter and was fully available. As needed, all aspects of the patient interview, examination, medical decision making process, and medical care plan development were reviewed and approved by the preceptor. Preceptor is aware and concurs with the plan as stated in the body of this note and will attest to such by his/her cosignature. MELONIE ROJAS DO Feb 23, 2017 14:20
--- NOTE | 2017-02-24 10:51 | IPNPDOC ---
Subjective Date Seen The patient was seen on 02/24/17. Subjective Chief Complaint/HPI The patient is a 51-year-old male admitted with a reason for visit of Failure To Thrive Intractable Abd Pain. Events since last encounter per nursing, the patient had no overnight event. The patient tolerated his tube feeds. Patient had a ultraound last night on his abdomen. Which showed No drainable fluid collection. and Inflammatory hypoechoic linear area beneath the incision. A linear echogenic structure is seen in this region; may be a suture or staple. The patient admits to some abdominal pain that is chronic but some tenderness at the site of incision. The patient has no other complaints this a.m. General: Reports: Normal Appetite, Denies: Chills, Night Sweats, Fatigue, Malaise Eyes: Denies: Pain, Vision change ENT: Denies: Dysphagia, Sore Throat Skin: Reports: Other (increased redness around incision site. ), Denies: Rash, Lesions, Bruising Pulmonary: Denies: Dyspnea, Cough Cardiovascular: Denies: Chest Pain, Palpitations, Edema, Lt Headedness Gastrointestinal: Reports: Abdominal Pain (chronic and some tendernness site of incision. ), Denies: Nausea, Vomiting, Constipation Genitourinary: Denies: Dysuria, Frequency, Incontinence, Hematuria, Retention Hematologic: Denies: Bruising, Bleeding Excessively Endocrine: Denies: Polydipsia, Polyphagia, Polyuria Musculoskeletal: Denies: Neck Pain, Back Pain, Joint Pain, Muscle Pain, Spasms Neurological: Denies: Weakness, Numbness, Change in speech, Confusion Psych: Reports: Mood Normal, Denies: Depression, Memory Issues Objective Physical Examination General Exam: Positive: Alert, No Acute Distress Eye Exam: Positive: PERRLA, Conjunctiva & lids normal, EOMI, Negative: Sclera icteric ENT Exam: Positive: Mucous membr. moist/pink, Pharynx Normal, Other ENT (poor dentitions), Negative: Atraumatic (small abrasions appreciated on the right upper forehead (improving). Nontender.) Neck Exam: Positive: Supple, Negative: JVD, thyromegaly Chest Exam: Positive: Clear to auscultation, Normal air movement Heart Exam: Positive: Rate Normal, Regular Rhythm, Normal S1, Normal S2, Negative: Murmurs, Rubs Telemetry: Positive: No significant arrhythmia Abdomen Exam: Positive: Normal bowel sounds, Soft, Tenderness (tenderness of right lower quadrant, no rebounding, no guarding appreciated. Tenderness at the site of incission.), Other (upper abdominal area covered by bandage. PEG tube can be seen. ), Negative: Hepatospenomegaly Extremity Exam: Positive: Normal pulses, Negative: Clubbing, Cyanosis, Edema Skin Exam: Positive: Nl turgor and temperature, Other skin issue (5 cm round erythemmatous lesion with increased warmth noted over the site of incision. ), Negative: Breakdown, Lesion Psych Exam: Positive: Mental status NL, Mood NL, Oriented x 3 Assessment /Plan Assessment 1. Abdominal Pain - likely multifactorial and acute on chronic. Patient is tolerating his PO meal and his nightly tube feeds. There is some concern on the patients last admission, where he was found to have his PO oxycodone in his pocket and requesting specifically for IV Pain medication this admission. The patient does have follow up with outpatient pain management. The patient does state he has a medical marijuana card which is to help decrease the amount of narcotics he needs for his pain. Will contact the patient's PCP before discharge to establish a better outpatient management on his chronic abdominal pain. 2. Cellulitis - Round erythematous, increased warmth lesion in the lower abdomen over old surgical incision site. Patient had an ultrasound done yesterday, 02/23/17 which ruled out an abscess. It showed No drainable fluid collection. Inflammatory hypoechoic linear area beneath the incision. A linear echogenic structure is seen in this region; may be a suture or staple. [facility] The patient states that he feels like a little bump in the area that is tender. Will be treated the patient with Augmentin 875 mg twice a day. Blood cultures from admission came back positive for gram-positive cocci in clusters. We repeated cultures yesterday 2 with 20 minute intervals. Patient has been afebrile and no leukocytosis since admission. We will continue to monitor. 3. Failure to thrive/malnutrition- Continue with PEG tube feedings. Dietary saw the patient on 02/23 and states the patient does not need supplement with Ensure at this time. Pt has had a 14 pound gain since last admission on 02/01/2017. We' ll continue supplementing by mouth intakes with nocturnal tube feeds and allow the patient the regular diet. Dietary will follow up in 5 days or sooner if needed. 4. PEG tube- Dr. James and his resident saw the patient at bedside to see if the patient needed his tube resecured. The patient will need to follow up [facility] discharge. 3. History of recent falls -PT evaluated the patient and cleared him to go when medical optimized. 4. Nausea/vomiting. Continue with IV hydration 80 mL per hour. Continue Zofran, Carafate 5. History of GERD - Cont PPI 6. History of recurrent visits to the ED for chronic abdominal pain - case management has been consulted. Will contact the patient PCP to establish better outpatient follow up and will transition the patient from out IV meds to only PO meds before discharge. 7. DVT prophylaxis - Teds and sequential's Plan/VTE VTE Prophylaxis Ordered?: Yes VS, I&O, 24H, Fishbone Vital Signs/I&O Vital Signs Date Time Temp Pulse Resp B/P (MAP) Pulse Ox O2 Delivery O2 Flow Rate FiO2 02/24/17 10:37 16 02/24/17 08:42 97.4 64 104/62 (76) 98 Room Air I&O- Last 24 Hours up to 6 AM 02/25/17 06:00 Intake Total 0 ml Output Total 0 ml Balance 0 ml Laboratory Data 24H LABS Laboratory Tests 2 02/24/17 06:29: Anion Gap 4L, Glomerular Filtration Rate > 60.0, Blood Urea Nitrogen 9, Creatinine 0.43L, Sodium Level 138, Potassium Level 3.9, Chloride Level 105, Carbon Dioxide Level 29, Calcium Level 7.7L, Magnesium Level 1.9 CBC/BMP Laboratory Tests 02/24/17 06:29 Red Blood Count 2.73 L, Mean Corpuscular Volume 90.8, Mean Corpuscular Hemoglobin 28.9, Mean Corpuscular Hemoglobin Concent 31.9 L, Red Cell Distribution Width 14.0, Calcium Level 7.7 L Microbiology Microbiology 02/23/17 Blood Culture, Received Pending 02/23/17 Blood Culture, Received Pending 02/21/17 Blood Culture - Final, Complete Staphylococcus Epidermidis 02/21/17 Urine Culture - Final, Complete GME ATTESTATION GME ATTESTATION My preceptor for this patient encounter was physically present in the building during the encounter and was fully available. As needed, all aspects of the patient interview, examination, medical decision making process, and medical care plan development were reviewed and approved by the preceptor. Preceptor is aware and concurs with the plan as stated in the body of this note and will attest to such by his/her cosignature. MELONIE ROJAS DO Feb 24, 2017 10:46
[2017-02-24] MEDS: AUGMENTIN 875 MG TAB PO SCH ×2 (13:16→20:18)
[2017-02-24 14:28] VITALS: BP 108/78
[2017-02-24 22:00] VITALS: BP 97/64
[2017-02-24] MEDS: ONDANSETRON 4 MG ORAL DISINTEGRATING TAB (S0181) PO PRN (22:07)
[2017-02-24 23:00] VITALS: BP 97/64
[2017-02-25] MEDS: MORPHINE 2 MG/ML 1ML SYRINGE IV PRN ×5 (01:10→23:48)
[2017-02-25] MEDS: ONDANSETRON 4 MG ORAL DISINTEGRATING TAB (S0181) PO PRN (02:50)
[2017-02-25] MEDS: oxyCODONE 5MG TAB PO PRN ×6 (02:51→23:12)
[2017-02-25 06:00] VITALS: BP 100/65
[2017-02-25 06:43] LABS: MEAN CORPUSCULAR HEMOGLOBIN 28.8 pg (27.0-33.0); MEAN CORPUSCULAR HGB CONC 31.9 g/dl (32.0-36.5); MEAN CORPUSCULAR VOLUME 90.2 fl (80.0-96.0); RED CELL DISTRIBUTION WIDTH 13.7 % (11.5-14.5); WHITE BLOOD COUNT 4.4 10^3/uL (4.0-10.0)
[2017-02-25 07:06] LABS: ANION GAP 4 MEQ/L (8-16); BLOOD UREA NITROGEN 7 MG/DL (7-18); CALCIUM LEVEL 7.8 MG/DL (8.5-10.1); CARBON DIOXIDE LEVEL 29 MEQ/L (21-32); CHLORIDE LEVEL 105 MEQ/L (98-107); CREATININE FOR GFR 0.43 MG/DL (0.70-1.30); GLOMERULAR FILTRATION RATE > 60.0 (>56); GLUCOSE, FASTING 82 MG/DL (70-105); POTASSIUM SERUM 4.3 MEQ/L (3.5-5.1); SODIUM LEVEL 138 MEQ/L (136-145)
[2017-02-25] MEDS: SUCRALFATE SUSP 1GM/10ML UD PO SCH ×4 (08:15→20:00)
[2017-02-25 09:00] VITALS: BP 98/64
[2017-02-25] MEDS: MULTIVITAMINS CHILDREN'S CHEWABLE TABLET PO SCH (10:06)
[2017-02-25] MEDS: VITAMIN D 1,000 INTERNATIONAL UNITS TABLET PO SCH (10:07)
[2017-02-25] MEDS: SENNA 8.6 MG TAB (SENOKOT) PO SCH (10:07)
[2017-02-25] MEDS: CYANOCOBALAMIN 500 MCG TAB PO SCH (10:07)
[2017-02-25] MEDS: OMEPRAZOLE 20 MG CAP PO SCH (10:07)
[2017-02-25] MEDS: AUGMENTIN 875 MG TAB PO SCH ×2 (10:08→20:01)
[2017-02-25] MEDS: LACTOBACILLUS ACIDOPHILUS CAP (BACID) PO SCH (10:08)
[2017-02-25] MEDS: NS 1,000 ML IV SCH (10:09)
--- NOTE | 2017-02-25 12:46 | IPNPDOC ---
Subjective Date Seen The patient was seen on 02/25/17. Subjective Chief Complaint/HPI The patient is a 51-year-old male admitted with a reason for visit of Failure To Thrive Intractable Abd Pain. Events since last encounter Patient was seen this morning and examined at bedside. The patient states he has a lot of pain in his abdomen because he wasn't given his medication on time. He still described the pain at achy and pressure like that is diffuse all over. He states the pain is not worse and just getting the medication on time dampens the pain. Per nursing, he had no overnight events. General: Reports: Normal Appetite, Denies: Chills, Night Sweats, Fatigue, Malaise Eyes: Denies: Pain, Vision change ENT: Denies: Dysphagia, Sore Throat Skin: Denies: Rash, Lesions, Bruising Pulmonary: Denies: Dyspnea, Cough Cardiovascular: Denies: Chest Pain, Palpitations, Edema, Lt Headedness Gastrointestinal: Reports: Abdominal Pain (chornic (difusse achy abdominal pain )), Denies: Nausea, Vomiting, Diarrhea, Constipation Genitourinary: Denies: Dysuria, Frequency, Incontinence, Hematuria, Retention Hematologic: Denies: Bruising, Bleeding Excessively Endocrine: Denies: Polydipsia, Polyphagia, Polyuria Musculoskeletal: Denies: Neck Pain, Back Pain, Joint Pain, Muscle Pain, Spasms Neurological: Denies: Weakness, Numbness, Change in speech, Confusion Psych: Reports: Mood Normal, Denies: Depression, Memory Issues Objective Physical Examination General Exam: Positive: Alert, No Acute Distress Eye Exam: Positive: PERRLA, Conjunctiva & lids normal, EOMI, Negative: Sclera icteric ENT Exam: Positive: Mucous membr. moist/pink, Pharynx Normal, Other ENT (poor dentitions), Negative: Atraumatic (small abrasions appreciated on the right upper forehead (improving). Nontender.) Neck Exam: Positive: Supple, Negative: JVD, thyromegaly Chest Exam: Positive: Clear to auscultation, Normal air movement Heart Exam: Positive: Rate Normal, Regular Rhythm, Normal S1, Normal S2, Negative: Murmurs, Rubs Telemetry: Positive: No significant arrhythmia Abdomen Exam: Positive: Normal bowel sounds, Soft, Tenderness (tenderness of right lower quadrant, no rebounding, no guarding appreciated. Tenderness at the site of incission.), Other (upper abdominal area covered by bandage around PEG tube.), Negative: Hepatospenomegaly Extremity Exam: Positive: Normal pulses, Negative: Clubbing, Cyanosis, Edema Skin Exam: Positive: Nl turgor and temperature, Other skin issue (5 cm round erythemmatous lesion with increased warmth noted over the site of incision. ( not increased in size)), Negative: Breakdown, Lesion Psych Exam: Positive: Mental status NL, Mood NL, Oriented x 3 Assessment /Plan Assessment 1. Abdominal Pain - likely multifactorial and acute on chronic. Patient is tolerating his PO meal and his nightly tube feeds. There is some concern on the patients last admission, where he was found to have his PO oxycodone in his pocket and requesting specifically for IV Pain medication this admission. The patient does have follow up with outpatient pain management. The patient does state he has a medical marijuana card to help decrease the amount of narcotics he needs for his pain. Will contact the patient's PCP before discharge to establish a better outpatient management on his chronic abdominal pain. Patient was on home pain medication and Morphine 2mg q4h prn. We will transition from Morphine 4 mg q4hp to q6hp. Will consider D.C. his IV medication later this evening tomorrow morning. 2. Cellulitis - Round erythematous, increased warmth lesion in the lower abdomen over old surgical incision site. Patient had an ultrasound done yesterday, 02/23/17 which ruled out an abscess. It showed no drainable fluid collection. Inflammatory hypoechoic linear area beneath the incision. A linear echogenic structure is seen in this region; may be a suture or staple. Obtaining medical records of the patient surgery from [facility] . The patient states that he feels like a little bump in the area that is tender. Will be treated the patient with Augmentin 875 mg twice a day. Blood culture from admission came back positive for Staph Epidermis. We repeated culturesx2 currently both are no growth in 24 hours. Patient has been afebrile and no leukocytosis since admission. We will continue to monitor. 3. Failure to thrive/malnutrition- Continue with PEG tube feedings. Dietary saw the patient on 02/23 and states the patient does not need supplement with Ensure at this time. Pt has had a 14 pound gain since last admission on 02/01/2017. We' ll continue supplementing by mouth intakes with nocturnal tube feeds and allow the patient the regular diet. Dietary will follow up in 5 days or sooner if needed. 4. PEG tube- Dr. James and his resident saw the patient at bedside to see if the patient needed his tube resecured. The patient will need to follow up with his GI from [facility] after discharge. 3. History of recent falls -PT evaluated the patient and cleared him to go when medical optimized. 4. Nausea/vomiting. Continue with IV hydration 80 mL per hour. Continue Zofran, Carafate 5. History of GERD - Cont PPI 6. History of recurrent visits to the ED for chronic abdominal pain - case management has been consulted. Will contact the patient PCP to establish better outpatient follow up and will transition the patient from out IV meds to only PO meds before discharge. Will consider D.C. his IV medication later this evening tomorrow morning. 7. DVT prophylaxis - Teds and sequential's Plan/VTE VTE Prophylaxis Ordered?: Yes VS, I&O, 24H, Fishbone Vital Signs/I&O Vital Signs Date Time Temp Pulse Resp B/P (MAP) Pulse Ox O2 Delivery O2 Flow Rate FiO2 02/25/17 06:54 18 02/25/17 06:00 98.2 60 100/65 (77) 99 Room Air I&O- Last 24 Hours up to 6 AM 02/26/17 05:59 Intake Total 150 ml Output Total 0 ml Balance 150 ml Laboratory Data 24H LABS Laboratory Tests 2 02/25/17 06:29: Anion Gap 4L, Glomerular Filtration Rate > 60.0, Blood Urea Nitrogen 7, Creatinine 0.43L, Sodium Level 138, Potassium Level 4.3, Chloride Level 105, Carbon Dioxide Level 29, Calcium Level 7.8L, Magnesium Level 2.0 CBC/BMP Laboratory Tests 02/25/17 06:29 Calcium Level 7.8 L 02/25/17 06:30 Red Blood Count 3.06 L, Mean Corpuscular Volume 90.2, Mean Corpuscular Hemoglobin 28.8, Mean Corpuscular Hemoglobin Concent 31.9 L, Red Cell Distribution Width 13.7 Microbiology Microbiology 02/23/17 Blood Culture - Preliminary, Resulted No growth after 24 hours . All specim... 02/23/17 Blood Culture - Preliminary, Resulted No growth after 24 hours . All specim... 02/21/17 Blood Culture - Final, Complete Staphylococcus Epidermidis 02/21/17 Urine Culture - Final, Complete GME ATTESTATION GME ATTESTATION My preceptor for this patient encounter was physically present in the building during the encounter and was fully available. As needed, all aspects of the patient interview, examination, medical decision making process, and medical care plan development were reviewed and approved by the preceptor. Preceptor is aware and concurs with the plan as stated in the body of this note and will attest to such by his/her cosignature. MELONIE ROJAS DO Feb 25, 2017 08:15
[2017-02-25 14:00] VITALS: BP 100/64
[2017-02-25 22:00] VITALS: BP 100/65
[2017-02-26] MEDS: oxyCODONE 5MG TAB PO PRN ×6 (03:15→23:45)
[2017-02-26] MEDS: MORPHINE 2 MG/ML 1ML SYRINGE IV PRN (05:51)
[2017-02-26 06:00] VITALS: BP 107/67
[2017-02-26] MEDS: NS 1,000 ML IV SCH (06:16)
[2017-02-26 06:33] LABS: MEAN CORPUSCULAR HEMOGLOBIN 28.9 pg (27.0-33.0); MEAN CORPUSCULAR HGB CONC 31.9 g/dl (32.0-36.5); MEAN CORPUSCULAR VOLUME 90.6 fl (80.0-96.0); RED CELL DISTRIBUTION WIDTH 13.9 % (11.5-14.5); WHITE BLOOD COUNT 3.7 10^3/uL (4.0-10.0)
[2017-02-26 06:51] LABS: ANION GAP 8 MEQ/L (8-16); BLOOD UREA NITROGEN 6 MG/DL (7-18); CALCIUM LEVEL 7.8 MG/DL (8.5-10.1); CARBON DIOXIDE LEVEL 27 MEQ/L (21-32); CHLORIDE LEVEL 107 MEQ/L (98-107); CREATININE FOR GFR 0.42 MG/DL (0.70-1.30); GLOMERULAR FILTRATION RATE > 60.0 (>56); GLUCOSE, FASTING 88 MG/DL (70-105); POTASSIUM SERUM 4.1 MEQ/L (3.5-5.1); SODIUM LEVEL 142 MEQ/L (136-145)
[2017-02-26] MEDS: SUCRALFATE SUSP 1GM/10ML UD PO SCH ×4 (07:58→21:59)
[2017-02-26] MEDS: MULTIVITAMINS CHILDREN'S CHEWABLE TABLET PO SCH (08:20)
[2017-02-26] MEDS: CYANOCOBALAMIN 500 MCG TAB PO SCH (08:20)
[2017-02-26] MEDS: LACTOBACILLUS ACIDOPHILUS CAP (BACID) PO SCH (08:20)
[2017-02-26] MEDS: AUGMENTIN 875 MG TAB PO SCH (08:21)
[2017-02-26] MEDS: VITAMIN D 1,000 INTERNATIONAL UNITS TABLET PO SCH (08:21)
[2017-02-26] MEDS: SENNA 8.6 MG TAB (SENOKOT) PO SCH (08:21)
[2017-02-26] MEDS: OMEPRAZOLE 20 MG CAP PO SCH (08:21)
--- NOTE | 2017-02-26 10:27 | IPNPDOC ---
Subjective Date Seen The patient was seen on 02/26/17. Subjective Chief Complaint/HPI The patient is a 51-year-old male admitted with a reason for visit of Failure To Thrive Intractable Abd Pain. Events since last encounter The patient was seen and examined this morning. The patient states he is still having pain in his lower abdomen, but tolerable. He is complaining of 5-7 episodes of diarrhea yesterday. Patient is tolerating his feeds and has been ambulating around his room with no problem. Per nursing, had no overnight events besides the diarrhea. General: Reports: Normal Appetite, Denies: Chills, Night Sweats, Fatigue, Malaise Eyes: Denies: Pain, Vision change ENT: Denies: Dysphagia, Sore Throat Skin: Denies: Rash, Lesions, Bruising Pulmonary: Denies: Dyspnea, Cough Cardiovascular: Denies: Chest Pain, Palpitations, Edema, Lt Headedness Gastrointestinal: Reports: Abdominal Pain (chronic achy dull pain in the lower abdomen), Diarrhea (5-7 episodes watery mixed with stool), Denies: Nausea, Vomiting, Constipation Genitourinary: Denies: Dysuria, Frequency, Incontinence, Hematuria, Retention Hematologic: Denies: Bruising, Bleeding Excessively Endocrine: Denies: Polydipsia, Polyphagia, Polyuria Musculoskeletal: Denies: Neck Pain, Back Pain, Joint Pain, Muscle Pain, Spasms Neurological: Denies: Weakness, Numbness, Change in speech, Confusion Psych: Reports: Mood Normal, Denies: Depression, Memory Issues Objective Physical Examination General Exam: Positive: Alert, No Acute Distress Eye Exam: Positive: PERRLA, Conjunctiva & lids normal, EOMI, Negative: Sclera icteric ENT Exam: Positive: Mucous membr. moist/pink, Pharynx Normal, Other ENT (poor dentitions), Negative: Atraumatic (small abrasions appreciated on the right upper forehead (improving). Nontender.) Neck Exam: Positive: Supple, Negative: JVD, thyromegaly Chest Exam: Positive: Clear to auscultation, Normal air movement Heart Exam: Positive: Rate Normal, Regular Rhythm, Normal S1, Normal S2, Negative: Murmurs, Rubs Telemetry: Positive: No significant arrhythmia Abdomen Exam: Positive: Normal bowel sounds, Soft, Tenderness (tenderness of right lower quadrant, no rebounding, no guarding appreciated. Tenderness at the site of incission.), Other (upper abdominal area covered by bandage around PEG tube.), Negative: Hepatospenomegaly Extremity Exam: Positive: Normal pulses, Negative: Clubbing, Cyanosis, Edema Skin Exam: Positive: Nl turgor and temperature, Other skin issue (5 cm round erythemmatous lesion improving. ), Negative: Breakdown, Lesion Psych Exam: Positive: Mental status NL, Mood NL, Oriented x 3 Assessment /Plan Assessment 1. Abdominal Pain - likely multifactorial and acute on chronic. Patient is tolerating his PO meal and his nightly tube feeds. There is some concern on the patients last admission, where he was found to have his PO oxycodone in his pocket and requesting specifically for IV Pain medication this admission. The patient does have follow up with outpatient pain management. The patient does state he has a medical marijuana card to help decrease the amount of narcotics he needs for his pain. Will contact the patient's PCP before discharge to establish a better outpatient management on his chronic abdominal pain. Patient was on home pain medication and Morphine 2mg q6h prn. D.C. IV pain meds this morning and see how the patient mange through the day. 2. Cellulitis - Round erythematous lesion in the lower abdomen over old surgical incision site. Patient had an ultrasound done 02/23/17 which ruled out an abscess. It showed no drainable fluid collection. Inflammatory hypoechoic linear area beneath the incision. A linear echogenic structure is seen in this region; may be a suture or staple. Obtaining medical records of the patient surgery from [facility]. Augmentin 875 mg BID Completely 3 days. rash is improving. WBC is 3.7 today and afebrile since admission. Blood culture from admission came back positive for Staph Epidermis. We repeated culturesx2 currently both are no growth in 48 hours. 3. 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 4. Failure to thrive/malnutrition- Continue with PEG tube feedings. Dietary saw the patient on 02/23 and states the patient does not need supplement with Ensure at this time. Pt has had a 14 pound gain since last admission on 02/01/2017. We' ll continue supplementing by mouth intakes with nocturnal tube feeds and allow the patient the regular diet. Dietary will follow up on 02/28/17 or sooner if needed. 5. PEG tube - The patient will need to follow up with his GI from [facility] after discharge. 6. History of recent falls -PT evaluated the patient and cleared him to go when medical optimized. 7. Nausea/vomiting. Continue with IV hydration 80 mL per hour. Continue Zofran, Carafate 8. History of GERD - Cont PPI 9. History of recurrent visits to the ED for chronic abdominal pain - case management has been consulted. Will contact the patient PCP to establish better outpatient follow up and will transition the patient from out IV meds to only PO meds before discharge. D.C. his IV medication this morning. 10. DVT prophylaxis - Teds and sequential's Plan/VTE VTE Prophylaxis Ordered?: Yes VS, I&O, 24H, Fishbone Vital Signs/I&O Vital Signs Date Time Temp Pulse Resp B/P (MAP) Pulse Ox O2 Delivery O2 Flow Rate FiO2 02/26/17 07:14 18 02/26/17 06:00 96.5 57 107/67 (80) 100 Room Air Laboratory Data 24H LABS Laboratory Tests 2 02/26/17 06:05: Anion Gap 8, Glomerular Filtration Rate > 60.0, Blood Urea Nitrogen 6L, Creatinine 0.42L, Sodium Level 142, Potassium Level 4.1, Chloride Level 107, Carbon Dioxide Level 27, Calcium Level 7.8L, Magnesium Level 2.0 CBC/BMP Laboratory Tests 02/26/17 06:05 Red Blood Count 2.87 L, Mean Corpuscular Volume 90.6, Mean Corpuscular Hemoglobin 28.9, Mean Corpuscular Hemoglobin Concent 31.9 L, Red Cell Distribution Width 13.9, Calcium Level 7.8 L Microbiology Microbiology 02/23/17 Blood Culture - Preliminary, Resulted No Growth after 48 hours. All Specime... 02/23/17 Blood Culture - Preliminary, Resulted No Growth after 48 hours. All Specime... 02/21/17 Blood Culture - Final, Complete Staphylococcus Epidermidis 02/26/17 Clostridium difficile (PCR), Received Pending 02/21/17 Urine Culture - Final, Complete GME ATTESTATION GME ATTESTATION My preceptor for this patient encounter was physically present in the building during the encounter and was fully available. As needed, all aspects of the patient interview, examination, medical decision making process, and medical care plan development were reviewed and approved by the preceptor. Preceptor is aware and concurs with the plan as stated in the body of this note and will attest to such by his/her cosignature. MELONIE ROJAS DO Feb 26, 2017 08:03
[2017-02-26 14:00] VITALS: BP 99/64
[2017-02-26 20:40] VITALS: BP 96/60
[2017-02-27] MEDS: oxyCODONE 5MG TAB PO PRN ×5 (03:54→20:01)
[2017-02-27 04:01] VITALS: BP 116/64
[2017-02-27 06:43] LABS: MEAN CORPUSCULAR HEMOGLOBIN 28.6 pg (27.0-33.0); MEAN CORPUSCULAR HGB CONC 31.7 g/dl (32.0-36.5); MEAN CORPUSCULAR VOLUME 90.4 fl (80.0-96.0)
[2017-02-27 07:04] LABS: ANION GAP 7 MEQ/L (8-16); BLOOD UREA NITROGEN 7 MG/DL (7-18); CARBON DIOXIDE LEVEL 26 MEQ/L (21-32); CHLORIDE LEVEL 106 MEQ/L (98-107); CREATININE FOR GFR 0.52 MG/DL (0.70-1.30); GLOMERULAR FILTRATION RATE > 60.0 (>56); GLUCOSE, FASTING 88 MG/DL (70-105); POTASSIUM SERUM 4.3 MEQ/L (3.5-5.1); SODIUM LEVEL 139 MEQ/L (136-145)
[2017-02-27] MEDS: SUCRALFATE SUSP 1GM/10ML UD PO SCH ×4 (07:58→20:00)
[2017-02-27] MEDS: VITAMIN D 1,000 INTERNATIONAL UNITS TABLET PO SCH (09:35)
[2017-02-27] MEDS: OMEPRAZOLE 20 MG CAP PO SCH (09:35)
[2017-02-27] MEDS: CYANOCOBALAMIN 500 MCG TAB PO SCH (09:35)
[2017-02-27] MEDS: MULTIVITAMINS CHILDREN'S CHEWABLE TABLET PO SCH (09:36)
[2017-02-27] MEDS: LACTOBACILLUS ACIDOPHILUS CAP (BACID) PO SCH (09:36)
--- NOTE | 2017-02-27 10:07 | IPNPDOC ---
Subjective Date Seen The patient was seen on 02/27/17. Subjective Chief Complaint/HPI The patient is a 51-year-old male admitted with a reason for visit of Failure To Thrive Intractable Abd Pain. Events since last encounter The patient was seen and examined this morning. The patient states he is feeling much better. Episodes of diarrhea have stayed the same since yesterday, but slept through the night with no episodes for 5 hours. Patient is tolerating his pain the past 24 hours without iv morphine. Per nursing, the patient had no overnight issue. General: Denies: Fatigue, Normal Appetite ENT: Denies: Head Aches Pulmonary: Denies: Dyspnea Cardiovascular: Denies: Chest Pain, Palpitations Gastrointestinal: Reports: Abdominal Pain (chronic), Diarrhea (watery mixed with stool 7 episodes, doesnt wake up from sleep. ) Objective Physical Examination General Exam: Positive: Alert, No Acute Distress Eye Exam: Positive: PERRLA, Conjunctiva & lids normal, EOMI, Negative: Sclera icteric ENT Exam: Positive: Mucous membr. moist/pink, Pharynx Normal, Other ENT (poor dentitions), Negative: Atraumatic (small abrasions appreciated on the right upper forehead (improving). Nontender.) Neck Exam: Positive: Supple, Negative: JVD, thyromegaly Chest Exam: Positive: Clear to auscultation, Normal air movement Heart Exam: Positive: Rate Normal, Regular Rhythm, Normal S1, Normal S2, Negative: Murmurs, Rubs Telemetry: Positive: No significant arrhythmia Abdomen Exam: Positive: Normal bowel sounds, Soft, Tenderness (inproved), Other (upper abdominal area covered by bandage around PEG tube.), Negative: Hepatospenomegaly Extremity Exam: Positive: Normal pulses, Negative: Clubbing, Cyanosis, Edema Skin Exam: Positive: Nl turgor and temperature, Other skin issue (3 cm round erythemmatous lesion improving. ), Negative: Breakdown, Lesion Psych Exam: Positive: Mental status NL, Mood NL, Oriented x 3 Assessment /Plan Assessment 1. Abdominal Pain - likely multifactorial and acute on chronic. Patient is tolerating his PO meal and his nightly tube feeds. There is some concern on the patients last admission, where he was found to have his PO oxycodone in his pocket and requesting specifically for IV Pain medication this admission. The patient does have follow up with outpatient pain management. The patient does state he has a medical marijuana card to help decrease the amount of narcotics he needs for his pain. Will contact the patient's PCP before discharge to establish a better outpatient management on his chronic abdominal pain. Patient tolerating PO pain meds since IV morphine was stopped on 02/25. 2. Cellulitis - Round erythematous lesion in the lower abdomen over old surgical incision site. Patient had an ultrasound done 02/23/17 which ruled out an abscess. It showed no drainable fluid collection. Inflammatory hypoechoic linear area beneath the incision. A linear echogenic structure is seen in this region; may be a suture or staple. Obtaining medical records of the patient surgery from [facility]. Augmentin 875 mg BID Completely 3 days. rash is improving. WBC is 4.0 today and afebrile since admission. Blood culture from admission came back positive for Staph Epidermis. We repeated culturesx2 currently both are no growth in 72 hours. 3. 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 patient was on Senna which has been discontinued. increased lactobacillus to 2 tab daily, c.diff cultures are positives, patient is colonized, will treat with metronidazole 500mg q8hx14 PO days. 4. Failure to thrive/malnutrition- Continue with PEG tube feedings. Dietary saw the patient on 02/23 and states the patient does not need supplement with Ensure at this time. Pt has had a 14 pound gain since last admission on 02/01/2017. We' ll continue supplementing by mouth intakes with nocturnal tube feeds and allow the patient the regular diet. Dietary will follow up on 02/28/17 or sooner if needed. gaining weight appropriately since admission, tolerating po meals. will continue 5. PEG tube - The patient will need to follow up with his GI from [facility] after discharge. 6. History of recent falls -PT evaluated the patient and cleared him to go when medical optimized. 7. Nausea/vomiting. Continue with IV hydration 80 mL per hour. Continue Zofran, Carafate 8. History of GERD - Cont PPI 9. History of recurrent visits to the ED for chronic abdominal pain - case management has been consulted. Will contact the patient PCP to establish better outpatient follow up. Patient is tolerating only po pain medication for last 24 hours. 10. DVT prophylaxis - Teds and sequential's Plan/VTE VTE Prophylaxis Ordered?: Yes VS, I&O, 24H, Fishbone Vital Signs/I&O Vital Signs Date Time Temp Pulse Resp B/P (MAP) Pulse Ox O2 Delivery O2 Flow Rate FiO2 02/27/17 04:24 18 Room Air 02/27/17 04:01 96.6 72 116/64 (81) 99 Laboratory Data 24H LABS Laboratory Tests 2 02/27/17 06:10: Anion Gap 7L, Glomerular Filtration Rate > 60.0, Blood Urea Nitrogen 7, Creatinine 0.52L, Sodium Level 139, Potassium Level 4.3, Chloride Level 106, Carbon Dioxide Level 26, Calcium Level 8.0L, Magnesium Level 2.0 CBC/BMP Laboratory Tests 02/27/17 06:10 Red Blood Count 3.11 L, Mean Corpuscular Volume 90.4, Mean Corpuscular Hemoglobin 28.6, Mean Corpuscular Hemoglobin Concent 31.7 L, Red Cell Distribution Width 14.0, Calcium Level 8.0 L Microbiology Microbiology 02/23/17 Blood Culture - Preliminary, Resulted No Growth after 72 hours. All specime... 02/23/17 Blood Culture - Preliminary, Resulted No Growth after 72 hours. All specime... 02/21/17 Blood Culture - Final, Complete Staphylococcus Epidermidis 02/26/17 Clostridium difficile (PCR) - Final, Complete 02/21/17 Urine Culture - Final, Complete GME ATTESTATION GME ATTESTATION My preceptor for this patient encounter was physically present in the building during the encounter and was fully available. As needed, all aspects of the patient interview, examination, medical decision making process, and medical care plan development were reviewed and approved by the preceptor. Preceptor is aware and concurs with the plan as stated in the body of this note and will attest to such by his/her cosignature. MELONIE ROJAS DO Feb 27, 2017 08:13
[2017-02-27 14:00] VITALS: BP 99/62
[2017-02-27] MEDS: metroNIDAZOLE (FLAGYL) 500 MG TAB PO SCH ×2 (14:00→22:09)
[2017-02-27 22:00] VITALS: BP 101/72
[2017-02-28] MEDS: oxyCODONE 5MG TAB PO PRN ×5 (00:06→16:31)
[2017-02-28 06:00] VITALS: BP 100/68
[2017-02-28 06:07] LABS: MEAN CORPUSCULAR HEMOGLOBIN 29.1 pg (27.0-33.0); MEAN CORPUSCULAR VOLUME 90.8 fl (80.0-96.0); WHITE BLOOD COUNT 6.3 10^3/uL (4.0-10.0)
[2017-02-28] MEDS: metroNIDAZOLE (FLAGYL) 500 MG TAB PO SCH ×2 (06:14→13:52)
[2017-02-28 06:35] LABS: ANION GAP 5 MEQ/L (8-16); BLOOD UREA NITROGEN 10 MG/DL (7-18); CALCIUM LEVEL 7.8 MG/DL (8.5-10.1); CARBON DIOXIDE LEVEL 29 MEQ/L (21-32); CHLORIDE LEVEL 104 MEQ/L (98-107); CREATININE FOR GFR 0.43 MG/DL (0.70-1.30); GLOMERULAR FILTRATION RATE > 60.0 (>56); GLUCOSE, FASTING 91 MG/DL (70-105); MAGNESIUM LEVEL 2.1 MG/DL (1.8-2.4); POTASSIUM SERUM 4.3 MEQ/L (3.5-5.1); SODIUM LEVEL 138 MEQ/L (136-145)
[2017-02-28] MEDS: SUCRALFATE SUSP 1GM/10ML UD PO SCH ×2 (08:14→12:17)
[2017-02-28] MEDS: LACTOBACILLUS ACIDOPHILUS CAP (BACID) PO SCH (08:14)
[2017-02-28] MEDS: MULTIVITAMINS CHILDREN'S CHEWABLE TABLET PO SCH (08:14)
[2017-02-28] MEDS: OMEPRAZOLE 20 MG CAP PO SCH (08:15)
[2017-02-28] MEDS: CYANOCOBALAMIN 500 MCG TAB PO SCH (08:15)
[2017-02-28] MEDS: VITAMIN D 1,000 INTERNATIONAL UNITS TABLET PO SCH (08:15)
[2017-02-28] MEDS ORDERED: FLAG500T PO (09:39)
--- NOTE | 2017-02-28 10:06 | DS.PDOC ---
Discharge Summary General Date of Admission Feb 23, 2017 at 11:30 Date of Discharge 02/28/2017 Primary Care Physician: ANDRE MARRERO MD [facility] Discharge Summary PROCEDURES PERFORMED DURING STAY: None. ADMITTING DIAGNOSES: 1. Abdominal Pain - likely multifactorial and acute on chronic 2. Failure to thrive/malnutrition DISCHARGE DIAGNOSES: 1. Abdominal Pain - likely multifactorial and acute on chronic 2. Cellulitis. 3. Diarrhea COMPLICATIONS/CHIEF COMPLAINT: Failure To Thrive Intractable Abd Pain. HISTORY OF PRESENT ILLNESS: This is a 51-year-old male with a pertinent past medical history of status post gastric bypass 4 years ago with a weight loss of 200+ pounds, subsequent malnutrition status post gastric tube placement who recently discharged from [facility] on 02/06/17 for intractable abdominal pain. The patient states in the last 4 days he has noticed his chronic abdominal pain getting more severe and unmanageable. He takes oxycodone 20 mg every 4 hour and he states is not enough. The patient states he had 3 episodes of vomiting last night accompanied with nausea. He denies having any blood or any food in his vomit, just clear in color. Patient states he is eating more than normal such as eating peanut butter and jelly cottage cheese soup and ice cream. He still als using his PEG tube. He states he uses two symone for 16 hours. The patient states in the last 2 days he is also have fell and hit his head both times. Patient is unsure on how he fell. States he didn't feel lightheaded , dizziness or unsteady before he fell. The patient came to the ER last night after the first fall and had imaging done which was negative for any intracranial lesions. He denies having any fever or chills at home but he does admit of having 100.1 temperature here at the ER, yesterday. But he has been afebrile since then. Patient denies having any sick contact or having any upper respiratory symptoms. The patient states he hasn't taken his medication last 24 hours except for his oxycodone 20 mg. Patient does admit decreased by mouth intake of fluids. He is urinating fine, julieth in color denies having any dysuria or urinary frequency. The patient is accompanied with his this visit. On 01/15/17 patient had pneumoperitoneum 2/2 perforated gastric ulcer. The patient was transferred to [facility], where he had a laparotomy and was discharged home on 01/30/17. Prior to discharge the patient states that he was feeling well, and tolerating a by mouth diet without any acute complaints. The patient was recently seen here at [facility] on 02/01/17 and was admitted for intractable abdominal pain, nausea and vomiting. These all were resolved throughout the hospital course. Pain management was on board and helped control the patient's pain. There was no leukocytosis or lactic acidosis throughout the hospital course. CT scan of his abdomen and pelvis that was acquired upon admission revealed his previous ascites and pneumoperitoneum had resolved. There is no obvious acute abdominopelvic pathology that was noted. Postoperative changes were noted. The patient was discharged on 02/06/17 stable and tolerating PO food. HOSPITAL COURSE: Abdominal Pain - likely multifactorial and acute on chronic. Patient is tolerating his PO meal and his nightly tube feeds. There is some concern on the patients last admission, where he was found to have his PO oxycodone in his pocket and requesting specifically for IV Pain medication this admission. The patient does have follow up with outpatient pain management. The patient does state he has a medical marijuana card to help decrease the amount of narcotics he needs for his pain. tolerating PO pain meds since IV morphine was stopped on 02/25. Cellulitis - Round erythematous lesion in the lower abdomen over old surgical incision site. Patient had an ultrasound done 02/23/17 which ruled out an abscess. It showed no drainable fluid collection. Inflammatory hypoechoic linear area beneath the incision. A linear echogenic structure is seen in this region; may be a suture or staple. Obtaining medical records of the patient surgery from [facility]. Augmentin 875 mg BID Completely 3 days. rash is improved. WBC was within normal limits and been afebrile since admission. Blood cultureX1 from admission came back contaminated WITH Staph Epidermis. We repeated culturesx2 currently both are no growth in 72 hours. 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 patient was on Senna which has been discontinued. increased lactobacillus to 2 tab daily, c.diff cultures are positives, patient is colonized, began treatment with metronidazole 500mg q8hx14 PO days. Failure to thrive/malnutrition- Continue with PEG tube feedings. Dietary saw the patient on 02/23 and 02/27, states the patient does not need supplement with Ensure. Pt has had a 14 pound gain since last admission on 02/01/2017. We'll continue supplementing by mouth intakes with nocturnal tube feeds and allow the patient regular diet. gaining weight appropriately since admission, tolerating po meals PEG tube - surgery saw the patient and stated the patient will need to follow up with his GI from [facility] after discharge. History of recent falls -PT evaluated the patient and cleared him to go when medical optimized. Nausea/vomiting Continue Zofran last administration on 02/25. History of GERD - Cont PPI History of recurrent visits to the ED for chronic abdominal pain - case management was consulted and recommended to transition the patient from IV narcotics to his home PO pain medication before discharge. Patient is tolerating only po pain medication for last 24 hours. DVT prophylaxis - Teds and sequential's DISCHARGE MEDICATIONS: Please see below. ALLERGIES: Please see below. PHYSICAL EXAMINATION ON DISCHARGE: VITAL SIGNS: Please see below. General Exam: Positive: Alert, No Acute Distress Eye Exam: Positive: PERRLA, Conjunctiva & lids normal, EOMI, Negative: Sclera icteric ENT Exam: Positive: Mucous membr. moist/pink, Pharynx Normal, Other ENT (poor dentitions), Chest Exam: Positive: Clear to auscultation, Normal air movement Heart Exam: Positive: Rate Normal, Regular Rhythm, Normal S1, Normal S2, Negative: Murmurs, Rubs Telemetry: Positive: No significant arrhythmia Abdomen Exam: Positive: Normal bowel sounds, Soft, Tenderness (improved), Other (upper abdominal area covered by bandage around PEG tube.), Negative: Hepatospenomegaly Extremity Exam: Positive: Normal pulses, Negative: Clubbing, Cyanosis, Edema Skin Exam: Positive: Nl turgor and temperature, Other skin issue (3 cm round erythemmatous lesion improving. ), Negative: Breakdown, Lesion Psych Exam: Positive: Mental status NL, Mood NL, Oriented x 3 LABORATORY DATA: Please see below. IMAGIN02/21/[address] IMPRESSION: There is no intracranial lesion. 02/21/[address] IMPRESSION: 1. The patient is status post cholecystectomy and gastric bypass. A gastrostomy tube is presence in the stomach. 2. 1.9 cm right renal cyst. 3. Right nephrolithiasis. 02/21/17 chest x-ray Impression: Right lower lobe scar. 02/23/17 Abdominal ultrasound Impression: 1. No drainable fluid collection. 2. Inflammatory hypoechoic linear area beneath the incision. A linear echogenic structure is seen in this region; may be a suture or staple. ACTIVITY: As tolerated DIET: Nocturnal tube feeding at 60 miles per hour for 8 hours supplemented with regular diet recommended by dietitian. DISCHARGE PLAN: : 1. Abdominal Pain - likely multifactorial and acute on chronic. Patient is tolerating his PO meal and his nightly tube feeds. Patient states abdominal pain is improving. Abdominal was soft nontender nondistended on examination of the day of discharge. Patient tolerating PO pain meds since IV morphine was stopped on 02/25. Patient will continue on by mouth pain meds outpatient and follow with PCP in 3-7 days. Follow-up with GI doctor at [facility] 2. Cellulitis - Round erythematous lesion in the lower abdomen over old surgical incision site improved significantly. Decreased warmth, decreased erythema and decreased in size on day of discharge. Patient had an ultrasound done 02/23/17 which ruled out an abscess. Augmentin 875 mg BID Completed 3 days. rash is improving. WBC has been within normal limits and afebrile since admission. Repeated culturesx2 currently both are no growth in 72 hours. 3. 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 Patient was on Senna which has been discontinued. increased lactobacillus to 2 tab daily, c.diff cultures are positives, patient is colonized, will continue with metronidazole 500mg q8hx14 PO days, only completed one day on day of discharge. 4. Failure to thrive/malnutrition-per dietitian recommendation patient will be discharged on nocturnal tube a rate of 60 miles for 8 hours supplementation with PO regular diet. Gaining weight appropriately since admission, tolerating po meals, will continue on dishcharge. Patient will be following up with GI doctor and if he has any further recommendations he can change after that appointment if needed. 5. PEG tube - The patient will need to follow up with his GI from [facility] after discharge. 6. History of recent falls -PT evaluated the patient and cleared him to go when medical optimized. 7. Nausea/vomiting. Hasnt used Zofran since 02/25 8. History of GERD - Cont PPI 9. History of recurrent visits to the ED for chronic abdominal pain - case management recommendations of transitioning patient from IV to PO pain medication before discharge. Patient has tolerating only po pain medication for last 48 hours. DISCHARGE INSTRUCTIONS: 1. f.u with Dr. Marrero within 3-7 days. 2. F.u with GI at [facility] 3. Continue tube feeding at 60mls for 8 hours at night. 4. Complete Antibiotics script sent to pharmacy 5. Follow up with pain management ITEMS TO FOLLOWUP ON ON OUTPATIENT: 1. f.u with Dr. Marrero within 3-7 days. 2. F.u with GI at [facility] 3. Continue tube feeding at 60mls for 8 hours at night. 4. Complete Antibiotics script sent to pharmacy 5. Follow up with pain management DISCHARGE CONDITION: Stable TIME SPENT ON DISCHARGE: Greater than 35 minutes. Vital Signs/I&Os Vital Signs Date Time Temp Pulse Resp B/P (MAP) Pulse Ox O2 Delivery O2 Flow Rate FiO2 02/28/17 08:16 20 Room Air 02/28/17 06:00 97.3 65 100/68 (79) 99 I&O- Last 24 Hours up to 6 AM 03/01/17 06:00 Intake Total 480 ml Balance 480 ml Laboratory Data Labs 24H Laboratory Tests 2 02/28/17 05:41: Anion Gap 5L, Glomerular Filtration Rate > 60.0, Blood Urea Nitrogen 10, Creatinine 0.43L, Sodium Level 138, Potassium Level 4.3, Chloride Level 104, Carbon Dioxide Level 29, Calcium Level 7.8L, Magnesium Level 2.1 CBC/BMP Laboratory Tests 02/28/17 05:41 Red Blood Count 3.06 L, Mean Corpuscular Volume 90.8, Mean Corpuscular Hemoglobin 29.1, Mean Corpuscular Hemoglobin Concent 32.0, Red Cell Distribution Width 14.0, Calcium Level 7.8 L Microbiology Microbiology 02/23/17 Blood Culture - Preliminary, Resulted No Growth after 72 hours. All specime... 02/23/17 Blood Culture - Preliminary, Resulted No Growth after 72 hours. All specime... 02/21/17 Blood Culture - Final, Complete Staphylococcus Epidermidis 02/26/17 Clostridium difficile (PCR) - Final, Complete 02/21/17 Urine Culture - Final, Complete Discharge Medications Scheduled (Thu-Bid Probiotic) 1 Tab Tab, 1 TAB PO DAILY, (Reported) Cholecalciferol (Vitamin D-3) 2,000 Unit Tab, 2,000 UNIT PO DAILY, (Reported) Cyanocobalamin (Vitamin B-12) 500 Mcg Tab, 500 MCG PO DAILY, (Reported) Metronidazole (Flagyl) 500 Mg Tab, 500 MG PO Q8H Multivitamins Chewable *[facility] STOCKED* (Animal Shapes with C & FA *[facility] STOCKED*) 1 Tab Chew, 1 TAB PO DAILY, (Reported) Omeprazole (Omeprazole) 40 Mg Cap, 40 MG PO DAILY, (Reported) Senna (Senna Lax) 8.6 Mg Tab, 1 TAB PO DAILY, (Reported) Sucralfate (Sucralfate) 1 Gm/10 Ml Mariia, 10 ML PO QID, (Reported) Scheduled PRN Ondansetron (Zofran Odt) 4 Mg Tab, 4 MG PO Q4H PRN for NAUSEA, (Reported) Oxycodone Hcl (Oxycodone HCl) 20 Mg Tab, 20 MG PO Q4H PRN for PAIN, (Reported) Allergies Coded Allergies: No Known Allergies (Verified , 10/12/16) GME ATTESTATION GME ATTESTATION My preceptor for this patient encounter was physically present in the building during the encounter and was fully available. As needed, all aspects of the patient interview, examination, medical decision making process, and medical care plan development were reviewed and approved by the preceptor. Preceptor is aware and concurs with the plan as stated in the body of this note and will attest to such by his/her cosignature. MELONIE ROJAS DO Feb 28, 2017 10:06
[2017-02-28 14:00] VITALS: BP 100/68
[2017-03-18] MEDS ORDERED: K-TA1TAB PO (08:37)
[2017-03-18] MEDS ORDERED: VANC125C2 PO (08:41)
[2017-03-26] MEDS ORDERED: FLAG500T PO (09:00)
[2017-03-28] MEDS ORDERED: VANC125C2 PO (13:36)
[2017-03-28] MEDS ORDERED: METR1TAB66 PO (13:36)
[2017-03-28] MEDS ORDERED: POTA20TA PO (13:36)
== END 2017-02-28 16:49 | disposition home or self-care (01) | DRG 392 ==
LOC: M ED 08:56 → M ED INP 13:46 → M MSPAV 15:03 → OBSVTOIN 02-23 11:30
PROVIDERS: ADMIT Hospitalist; ATTEND Internal Medicine
DX: R10.9 Unspecified abdominal pain (principal); E46 Unspecified protein-calorie malnutrition; L03.311 Cellulitis of abdominal wall; A04.72 Enterocolitis due to Clostridium difficile, not specified as recurrent; R62.7 Adult failure to thrive; Z98.84 Bariatric surgery status; Z93.1 Gastrostomy status; R29.6 Repeated falls; N20.0 Calculus of kidney; K21.9 Gastro-esophageal reflux disease without esophagitis; Z79.899 Other long term (current) drug therapy; F32.9 Major depressive disorder, single episode, unspecified; F17.200 Nicotine dependence, unspecified, uncomplicated; N28.1 Cyst of kidney, acquired; R11.2 Nausea with vomiting, unspecified; Z91.19 Patient's noncompliance with other medical treatment and regimen

== ENCOUNTER 2017-03-15 07:13 | Emergency (ER) | payer OTHER, MEDICARE ==
[~2017-03-15] VITALS: Ht 180.3 cm; Wt 58.6 kg
[2017-03-15] MEDS ORDERED: ASPI81CH32 PO (07:27)
[2017-03-15] MEDS ORDERED: NS 1,000 ML IV SCH (07:45)
[2017-03-15] MEDS ORDERED: NS 1,000 ML IV ONE (07:45)
[2017-03-15] MEDS ORDERED: METOCLOPRAMIDE INJ 10MG/2ML VIAL (J2765) IV ONE (07:45)
[2017-03-15] MEDS ORDERED: PANTOPRAZOLE 40MG INJ (PROTONIX) (C9113) IV ONE (07:45)
[2017-03-15] MEDS ORDERED: MORPHINE 4 MG/ML 1ML SYRINGE IV PRN (07:45)
[2017-03-15 07:57] LABS: BASO % 0.2 % (0.0-1.0); EOS % 0.4 % (0.0-3.0); IMMATURE GRANULOCYTE % 0.2 % (0-0); LYMPH # 0.8 10^3/uL (1.5-4.5); LYMPH % 13.5 % (24.0-44.0); MEAN CORPUSCULAR HEMOGLOBIN 28.5 pg (27.0-33.0); MEAN CORPUSCULAR HGB CONC 31.9 g/dl (32.0-36.5); MEAN CORPUSCULAR VOLUME 89.5 fl (80.0-96.0); MONO # 0.3 10^3/uL (0.0-0.8); MONO % 4.6 % (0.0-5.0); NEUTROPHILS # 4.6 10^3/uL (1.8-7.7); NEUTROPHILS % 81.1 % (36.0-66.0); PLATELET COUNT, AUTOMATED 186 10^3/uL (150-450); RED CELL DISTRIBUTION WIDTH 14.1 % (11.5-14.5); WHITE BLOOD COUNT 5.6 10^3/uL (4.0-10.0)
[2017-03-15 08:24] LABS: ALBUMIN 2.6 GM/DL (3.2-5.2); ALKALINE PHOSPHATASE 76 U/L (45-117); ALT/SGPT 14 U/L (12-78); ANION GAP 8 MEQ/L (8-16); AST/SGOT 11 U/L (15-37); BILIRUBIN,DIRECT 0.2 MG/DL (0.0-0.2); BILIRUBIN,TOTAL 0.3 MG/DL (0.2-1.0); BLOOD UREA NITROGEN 15 MG/DL (7-18); CARBON DIOXIDE LEVEL 26 MEQ/L (21-32); CHLORIDE LEVEL 107 MEQ/L (98-107); CREATININE FOR GFR 0.53 MG/DL (0.70-1.30); GLOMERULAR FILTRATION RATE > 60.0 (>56); GLUCOSE, FASTING 143 MG/DL (70-105); POTASSIUM SERUM 3.4 MEQ/L (3.5-5.1); SODIUM LEVEL 141 MEQ/L (136-145); TOTAL PROTEIN 6.3 GM/DL (6.4-8.2)
[2017-03-15] MEDS ORDERED: ISOVUE-370 76% 100ML VIAL (Q9967) As Ordered ONE (08:47)
--- NOTE | 2017-03-15 09:29 | REP ---
CT abdomen pelvis with IV contrast, without bowel contrast: Comparison is 02/21/2017 without IV or bowel contrast: The visualized lung hernandez are unremarkable. There is a percutaneous gastrostomy. This is unchanged. There are a surgical staple lines compatible with bariatric surgery. This is unchanged. The hepatic parenchyma is homogeneous. There is a cholecystectomy. This is unchanged. The pancreas and spleen are normal size and unremarkable. The adrenals are unremarkable. There is a nonobstructive calculus in the lower pole of the right kidney. This is unchanged. There is no hydronephrosis. The kidneys are otherwise unremarkable. The abdominal aorta is unremarkable. There is no retroperitoneal adenopathy. There are occasional fluid filled mildly still distended small bowel loops in a nonspecific pattern. There is no colonic distension. There is a trace of ascites at the inferior tip of the hepatic right lobe, not present previously. Pelvis: The the patient indicates he has an appendectomy. There is a trace of pelvic ascites. There is wall thickening of the sigmoid and rectosigmoid colon, nonspecific, colitis versus artifact from under distension. There is no pelvic adenopathy. There is surgical fusion of the L5 S1 vertebra as previously. Impression: There are findings compatible with colitis of the rectosigmoid colon versus artifact from under distension. There is a trace of ascites. Percutaneous gastrostomy and evidence for bariatric surgery are unchanged. The patient has a cholecystectomy and appendectomy. There is a nonobstructive right renal calculus. Surgical fusion of the lumbar spine L5 S1. Signed by Vidal Porras MD 03/15/2017 09:21 A
[2017-03-15] MEDS ORDERED: HYDROmorphone HCL 1 MG/ML SYRINGE (J1170) IV ONE (09:30)
[2017-03-15] MEDS ORDERED: ROLLMIS2 XX (10:12)
[2017-03-15 11:06] VITALS: BP 120/69; O2SAT 100
--- NOTE | 2017-03-16 20:52 | ECGEPIP ---
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
[2017-03-18] MEDS ORDERED: K-TA1TAB PO (08:37)
[2017-03-18] MEDS ORDERED: VANC125C2 PO (08:41)
[2017-03-26] MEDS ORDERED: FLAG500T PO (09:00)
[2017-03-28] MEDS ORDERED: METR1TAB66 PO (13:36)
[2017-03-28] MEDS ORDERED: VANC125C2 PO (13:36)
[2017-03-28] MEDS ORDERED: POTA20TA PO (13:36)
== END 2017-03-15 11:10 | disposition home or self-care (01) ==
LOC: M ED 07:13 → EDBD 07:13 → M ED 11:10
DX: G89.29 Other chronic pain (principal); R10.9 Unspecified abdominal pain; R19.7 Diarrhea, unspecified; R00.1 Bradycardia, unspecified; E46 Unspecified protein-calorie malnutrition; F41.9 Anxiety disorder, unspecified; F32.9 Major depressive disorder, single episode, unspecified; Z86.718 Personal history of other venous thrombosis and embolism; Z86.19 Personal history of other infectious and parasitic diseases; Z98.84 Bariatric surgery status; Z93.1 Gastrostomy status; N20.0 Calculus of kidney; Z98.1 Arthrodesis status; Z90.49 Acquired absence of other specified parts of digestive tract; R18.8 Other ascites; K92.9 Disease of digestive system, unspecified; Z79.899 Other long term (current) drug therapy
CPT/HCPCS: 36415; 74177; 80048; 80076; 83690; 85025; 93005; 93041; 96374; 96375; 99285; C9113; J1170; J2765; Q9967

== ENCOUNTER 2017-04-05 03:53 | Emergency (ER) | payer OTHER, MEDICARE ==
[~2017-04-05] VITALS: Ht 180.3 cm; Wt 56.8 kg
[~2017-04-05 03:53] MED LIST changes: +ASPI81CH32 PO; +K-TA1TAB PO; +METR1TAB66 PO; +POTA20TA PO; +ROLLMIS2 XX
[2017-04-05 06:46] LABS: BASO % 0.6 % (0.0-1.0); EOS # 0.1 10^3/uL (0.0-0.50); EOS % 2.3 % (0.0-3.0); IMMATURE GRANULOCYTE % 0.3 % (0-0); LYMPH % 28.8 % (24.0-44.0); MEAN CORPUSCULAR HEMOGLOBIN 28.3 pg (27.0-33.0); MEAN CORPUSCULAR HGB CONC 31.8 g/dl (32.0-36.5); MEAN CORPUSCULAR VOLUME 89.1 fl (80.0-96.0); MONO # 0.4 10^3/uL (0.0-0.8); MONO % 10.4 % (0.0-5.0); NEUTROPHILS % 57.6 % (36.0-66.0); PLATELET COUNT, AUTOMATED 213 10^3/uL (150-450); RED CELL DISTRIBUTION WIDTH 15.1 % (11.5-14.5); WHITE BLOOD COUNT 3.5 10^3/uL (4.0-10.0)
[2017-04-05 07:03] VITALS: BP 111/77
[2017-04-05 07:08] LABS: ALBUMIN 2.7 GM/DL (3.2-5.2); ALBUMIN/GLOBULIN RATIO 0.71 (1.00-1.93); ALKALINE PHOSPHATASE 99 U/L (45-117); ALT/SGPT 30 U/L (12-78); ANION GAP 7 MEQ/L (8-16); AST/SGOT 37 U/L (7-37); BILIRUBIN,TOTAL 0.3 MG/DL (0.2-1.0); BLOOD UREA NITROGEN 13 MG/DL (7-18); CALCIUM LEVEL 8.2 MG/DL (8.5-10.1); CARBON DIOXIDE LEVEL 27 MEQ/L (21-32); CHLORIDE LEVEL 109 MEQ/L (98-107); CREATININE FOR GFR 0.58 MG/DL (0.70-1.30); GLOMERULAR FILTRATION RATE > 60.0 (>56); GLUCOSE, FASTING 76 MG/DL (70-105); POTASSIUM SERUM 3.9 MEQ/L (3.5-5.1); SODIUM LEVEL 143 MEQ/L (136-145); TOTAL PROTEIN 6.5 GM/DL (6.4-8.2)
--- NOTE | 2017-04-05 07:28 | ECGEPIP ---
Stationary ECG Study [facility] - ED Test Date: 2017-04-05 Pat Name: GRAHAM COLEMAN Department: Room: - Gender: M Sales Consultant: victor hugo : 1965 Requested By: Jackson Escobar Order Number: [id number] Reading MD: Smith Enamorado Measurements Intervals [place] Rate: 49 P: 60 CT: 170 QRS: -25 QRSD: 101 T: 29 QT: 438 QTc: 396 Interpretive Statements SINUS BRADYCARDIA BORDERLINE LEFT AXIS DEVIATION NSTTW ABNORMALITIES SIMILAR TO 03/28/17 Electronically Signed On 04-05-2017 7:28:39 EST by Smith Enamorado
== END 2017-04-05 08:27 | disposition home or self-care (01) ==
LOC: M ED 03:53
DX: R11.0 Nausea (principal); R00.1 Bradycardia, unspecified; R94.31 Abnormal electrocardiogram [ECG] [EKG]; R19.7 Diarrhea, unspecified; Z98.84 Bariatric surgery status; Z86.19 Personal history of other infectious and parasitic diseases; F17.200 Nicotine dependence, unspecified, uncomplicated; Z79.82 Long term (current) use of aspirin; Z79.899 Other long term (current) drug therapy

== ENCOUNTER 2017-04-13 08:14 | Emergency (ER) | payer OTHER, MEDICARE ==
[~2017-04-13] VITALS: Ht 180.3 cm; Wt 56.8 kg
[2017-04-13 08:14] VITALS: BP 113/78
[2017-04-13 11:28] LABS: BASO % 0.6 % (0.0-1.0); EOS % 0.3 % (0.0-3.0); IMMATURE GRANULOCYTE % 0.3 % (0-0); LYMPH # 0.9 10^3/uL (1.5-4.5); LYMPH % 27.4 % (24.0-44.0); MEAN CORPUSCULAR HEMOGLOBIN 28.2 pg (27.0-33.0); MEAN CORPUSCULAR HGB CONC 32.5 g/dl (32.0-36.5); MEAN CORPUSCULAR VOLUME 86.9 fl (80.0-96.0); MONO # 0.2 10^3/uL (0.0-0.8); MONO % 7.4 % (0.0-5.0); PLATELET COUNT, AUTOMATED 183 10^3/uL (150-450); RED CELL DISTRIBUTION WIDTH 15.1 % (11.5-14.5); WHITE BLOOD COUNT 3.1 10^3/uL (4.0-10.0)
[2017-04-13 11:51] LABS: ALBUMIN 2.9 GM/DL (3.2-5.2); ALBUMIN/GLOBULIN RATIO 0.66 (1.00-1.93); ALKALINE PHOSPHATASE 123 U/L (45-117); ALT/SGPT 24 U/L (12-78); ANION GAP 3 MEQ/L (8-16); AST/SGOT 19 U/L (7-37); BILIRUBIN,DIRECT 0.2 MG/DL (0.0-0.2); BILIRUBIN,TOTAL 0.5 MG/DL (0.2-1.0); BLOOD UREA NITROGEN 13 MG/DL (7-18); CALCIUM LEVEL 8.3 MG/DL (8.5-10.1); CARBON DIOXIDE LEVEL 30 MEQ/L (21-32); CHLORIDE LEVEL 105 MEQ/L (98-107); CREATININE FOR GFR 0.45 MG/DL (0.70-1.30); GLOMERULAR FILTRATION RATE > 60.0 (>56); GLUCOSE, FASTING 74 MG/DL (70-105); SODIUM LEVEL 138 MEQ/L (136-145); TOTAL PROTEIN 7.3 GM/DL (6.4-8.2)
[2017-04-13] MEDS ORDERED: oxyCODONE 5MG TAB PO ONE (12:30)
== END 2017-04-13 13:53 | disposition home or self-care (01) ==
LOC: M ED 08:14
DX: R10.9 Unspecified abdominal pain (principal); G89.29 Other chronic pain; K52.9 Noninfective gastroenteritis and colitis, unspecified; Z72.0 Tobacco use

== ENCOUNTER 2017-05-10 18:05 | Emergency (ER) | payer OTHER, MEDICARE ==
[~2017-05-10] VITALS: Ht 180.3 cm; Wt 63.6 kg
[2017-05-10] MEDS ORDERED: NS 1,000 ML IV ONE (19:00)
[2017-05-10 19:04] LABS: BASO % 0.3 % (0.0-1.0); EOS # 0.1 10^3/uL (0.0-0.50); IMMATURE GRANULOCYTE % 0.3 % (0-0); LYMPH # 1.1 10^3/uL (1.5-4.5); LYMPH % 18.2 % (24.0-44.0); MEAN CORPUSCULAR HEMOGLOBIN 28.9 pg (27.0-33.0); MEAN CORPUSCULAR HGB CONC 32.6 g/dl (32.0-36.5); MEAN CORPUSCULAR VOLUME 88.8 fl (80.0-96.0); MONO # 0.5 10^3/uL (0.0-0.8); MONO % 8.1 % (0.0-5.0); NEUTROPHILS # 4.2 10^3/uL (1.8-7.7); NEUTROPHILS % 72.1 % (36.0-66.0); PLATELET COUNT, AUTOMATED 201 10^3/uL (150-450); RED CELL DISTRIBUTION WIDTH 15.9 % (11.5-14.5); WHITE BLOOD COUNT 5.8 10^3/uL (4.0-10.0)
[2017-05-10] MEDS: MORPHINE 2 MG/ML 1ML SYRINGE IV PRN ×3 (19:06→21:53)
[2017-05-10 19:43] LABS: INR 1.11
--- NOTE | 2017-05-10 19:51 | ECGEPIP ---
Stationary ECG Study [facility] - ED Test Date: 2017-05-10 Pat Name: GRAHAM COLEMAN Department: Room: - Gender: M Water Carter: sandi : 1965 Requested By: GILDA KAY Order Number: [id number] Reading MD: Dorota Garcia Measurements Intervals [place] Rate: 68 P: 62 FL: 172 QRS: -45 QRSD: 80 T: 40 QT: 373 QTc: 397 Interpretive Statements SINUS RHYTHM INFERIOR MYOCARDIAL INFARCTION, PROBABLY OLD LAD DELAYED R WAVE PROGRESSION CW 04/05/17 RATE INCREASED Electronically Signed On 05-10-2017 19:51:06 EST by Dorota Garcia
[2017-05-10 20:15] LABS: ALBUMIN/GLOBULIN RATIO 0.51 (1.00-1.93); ALKALINE PHOSPHATASE 113 U/L (45-117); ALT/SGPT 20 U/L (12-78); AMYLASE 31 U/L (25-115); ANION GAP 5 MEQ/L (8-16); AST/SGOT 13 U/L (7-37); BILIRUBIN,DIRECT < 0.1 MG/DL (0.0-0.2); BILIRUBIN,TOTAL 0.3 MG/DL (0.2-1.0); BLOOD UREA NITROGEN 7 MG/DL (7-18); CALCIUM LEVEL 7.6 MG/DL (8.5-10.1); CARBON DIOXIDE LEVEL 22 MEQ/L (21-32); CHLORIDE LEVEL 119 MEQ/L (98-107); CREATININE FOR GFR 0.55 MG/DL (0.70-1.30); GLOMERULAR FILTRATION RATE > 60.0 (>56); GLUCOSE, FASTING 96 MG/DL (70-105); SODIUM LEVEL 146 MEQ/L (136-145); TOTAL PROTEIN 5.9 GM/DL (6.4-8.2)
[2017-05-10] MEDS ORDERED: ISOVUE-370 76% 100ML VIAL (Q9967) As Ordered ONE (20:31)
--- NOTE | 2017-05-10 21:10 | REPUSA ---
CT of the abdomen and pelvis with contrast Clinical statement: Pain. Technique: Multiple axial CT images were obtained from the base of the lungs through the floor of the pelvis utilizing 5 mm axial slices after administration of nonionic intravenous contrast. Coronal an d sagittal reconstructions were also obtained. Comparison: 02/20/2017. Findings: Chest: The visualized lung bases are clear. Abdomen: A percutaneous gastrostomy tube appears in position within the stomach.The liver, spleen, pa ncreas, kidneys, and adrenal glands are unremarkable. The aorta is within normal limits. There is no evidence of abdominal lymphadenopathy or ascites. Pelvis: Moderate amount of stool fills the colon. The bowel is otherwise unremarkable, with no obstru ctive or inflammatory changes. The urinary bladder is within normal limits. The other pelvic structur es appear grossly intact. There is no evidence of pelvic lymphadenopathy or ascites. Bones: There are no suspicious osseous abnormalities seen. Surgical fusion changes at L5/S1 are intac t. Impression: 1. Moderate constipation. No obstructive or inflammatory bowel changes. 2. Percutaneous gastrostomy tube is in place. 3. Surgical fusion of L5/S1 is stable.
[2017-05-10] MEDS ORDERED: MIRALAX *UNIT DOSE* 17GM PACKET GT ONE (22:00)
[2017-05-10] MEDS ORDERED: oxyCODONE 5MG TAB PO ONE (23:00)
[2017-05-10 23:19] VITALS: BP 130/75
[2017-05-11] MEDS ORDERED: FLOM5CAP PO (00:06)
[2017-05-11] MEDS ORDERED: PYRI1TAB5 PO (00:06)
== END 2017-05-11 00:18 | disposition home or self-care (01) ==
LOC: M ED 18:05
DX: R33.9 Retention of urine, unspecified (principal); K59.00 Constipation, unspecified; F33.9 Major depressive disorder, recurrent, unspecified; Z93.1 Gastrostomy status; Z98.84 Bariatric surgery status; Z79.899 Other long term (current) drug therapy; Z79.82 Long term (current) use of aspirin; F17.210 Nicotine dependence, cigarettes, uncomplicated
CPT/HCPCS: 51701; 74177; 80048; 80076; 81001; 82150; 82550; 82553; 83605; 83690; 85025; 85610; 85730; 86140; 87040; 93005; 93041; 96374; 96376; 99285; Q9967

== ENCOUNTER 2017-05-11 13:35 | Emergency (ER) | payer OTHER, MEDICARE ==
[~2017-05-11] VITALS: Ht 180.3 cm; Wt 63.3 kg
[2017-05-11 13:35] VITALS: BP 106/74
[~2017-05-11 13:35] MED LIST changes: +FLOM5CAP PO; +PYRI1TAB5 PO
[2017-05-11] MEDS ORDERED: NS 1,000 ML IV ONE (15:45)
[2017-05-11] MEDS ORDERED: TAMSULOSIN 0.4 MG CAP PO ONE (15:45)
[2017-05-11] MEDS ORDERED: PHENAZOPYRIDINE 100 MG TAB PO ONE (15:45)
[2017-05-11 16:18] LABS: BASO % 0.3 % (0.0-1.0); EOS # 0.1 10^3/uL (0.0-0.50); IMMATURE GRANULOCYTE % 0.2 % (0-0); LYMPH # 1.3 10^3/uL (1.5-4.5); LYMPH % 21.9 % (24.0-44.0); MEAN CORPUSCULAR HEMOGLOBIN 28.4 pg (27.0-33.0); MEAN CORPUSCULAR HGB CONC 31.7 g/dl (32.0-36.5); MEAN CORPUSCULAR VOLUME 89.4 fl (80.0-96.0); MONO # 0.5 10^3/uL (0.0-0.8); MONO % 8.8 % (0.0-5.0); NEUTROPHILS % 67.8 % (36.0-66.0); PLATELET COUNT, AUTOMATED 198 10^3/uL (150-450); RED CELL DISTRIBUTION WIDTH 16.2 % (11.5-14.5); WHITE BLOOD COUNT 5.9 10^3/uL (4.0-10.0)
[2017-05-11 16:39] LABS: ANION GAP 4 MEQ/L (8-16); BLOOD UREA NITROGEN 7 MG/DL (7-18); CALCIUM LEVEL 7.6 MG/DL (8.5-10.1); CARBON DIOXIDE LEVEL 28 MEQ/L (21-32); CHLORIDE LEVEL 112 MEQ/L (98-107); CREATININE FOR GFR 0.58 MG/DL (0.70-1.30); GLOMERULAR FILTRATION RATE > 60.0 (>56); GLUCOSE, FASTING 83 MG/DL (70-105); POTASSIUM SERUM 4.8 MEQ/L (3.5-5.1); SODIUM LEVEL 144 MEQ/L (136-145)
== END 2017-05-11 16:39 | disposition left against medical advice (07) ==
LOC: M ED 13:35
DX: R33.9 Retention of urine, unspecified (principal); Z98.84 Bariatric surgery status; I25.2 Old myocardial infarction; I10 Essential (primary) hypertension; R51 Headache; R42 Dizziness and giddiness; E78.5 Hyperlipidemia, unspecified; G89.29 Other chronic pain; M54.9 Dorsalgia, unspecified; F41.9 Anxiety disorder, unspecified; K52.9 Noninfective gastroenteritis and colitis, unspecified; Z86.718 Personal history of other venous thrombosis and embolism; Z43.1 Encounter for attention to gastrostomy; F17.200 Nicotine dependence, unspecified, uncomplicated; F12.10 Cannabis abuse, uncomplicated; Z79.82 Long term (current) use of aspirin; Z79.899 Other long term (current) drug therapy

== ENCOUNTER 2017-05-16 11:09 | Inpatient (IN) | payer OTHER, MEDICARE ==
[2017-05-16 13:11] LABS: BASO % 0.5 % (0.0-1.0); EOS % 0.2 % (0.0-3.0); HEMOGLOBIN 10.9 g/dl (14.0-18.0); IMMATURE GRANULOCYTE % 0.2 % (0-0); LYMPH # 0.7 10^3/uL (1.5-4.5); LYMPH % 15.2 % (24.0-44.0); MEAN CORPUSCULAR HEMOGLOBIN 29.4 pg (27.0-33.0); MEAN CORPUSCULAR VOLUME 88.9 fl (80.0-96.0); MONO # 0.3 10^3/uL (0.0-0.8); MONO % 6.3 % (0.0-5.0); NEUTROPHILS # 3.4 10^3/uL (1.8-7.7); NEUTROPHILS % 77.6 % (36.0-66.0); PLATELET COUNT, AUTOMATED 172 10^3/uL (150-450); RED BLOOD COUNT 3.71 10^6/uL (4.30-6.10); RED CELL DISTRIBUTION WIDTH 16.6 % (11.5-14.5); WHITE BLOOD COUNT 4.4 10^3/uL (4.0-10.0)
[2017-05-16] MEDS: NS 500 ML IV (13:15)
[2017-05-16 13:22] LABS: ALKALINE PHOSPHATASE 103 U/L (45-117); ALT/SGPT 22 U/L (12-78); ANION GAP 3 MEQ/L (8-16); AST/SGOT 18 U/L (7-37); BILIRUBIN,DIRECT < 0.1 MG/DL (0.0-0.2); BILIRUBIN,TOTAL 0.3 MG/DL (0.2-1.0); BLOOD UREA NITROGEN 9 MG/DL (7-18); CALCIUM LEVEL 7.4 MG/DL (8.5-10.1); CARBON DIOXIDE LEVEL 27 MEQ/L (21-32); CHLORIDE LEVEL 114 MEQ/L (98-107); CREATININE FOR GFR 0.48 MG/DL (0.70-1.30); GLOMERULAR FILTRATION RATE > 60.0 (>56); GLUCOSE, FASTING 99 MG/DL (70-105); LIPASE 69 U/L (73-393); MAGNESIUM LEVEL 1.8 MG/DL (1.8-2.4); POTASSIUM SERUM 3.8 MEQ/L (3.5-5.1); SODIUM LEVEL 144 MEQ/L (136-145)
[2017-05-16 13:25] LABS: CPK CREATINE PHOSPHOKINASE 29 U/L (39-308); TROPONIN I < 0.02 NG/ML (< 0.10)
[2017-05-16 13:31] LABS: MB/CK RELATIVE INDEX 3.44 (< OR =4); THYROID STIMULATING HORMONE 0.206 uIU/ML (0.358-3.740)
[2017-05-16] MEDS ORDERED: ISOVUE-370 76% 100ML VIAL (Q9967) As Ordered (13:51)
[2017-05-16] MEDS: MORPHINE 4 MG/ML 1ML SYRINGE IV (13:58)
[2017-05-16] MEDS: MORPHINE 2 MG/ML 1ML SYRINGE IV (14:52)
[2017-05-16] MEDS ORDERED: ONDANSETRON 4MG/2ML VIAL (J2405) IV (16:00)
[2017-05-16] MEDS: MORPHINE 10 MG/ML 1ML VIAL IV ×2 (16:47→20:54)
[2017-05-16] MEDS: SUCRALFATE SUSP 1GM/10ML UD PO ×2 (18:27→20:54)
[2017-05-16] MEDS: oxyCODONE 5MG TAB PO ×2 (18:28→22:52)
[2017-05-16 21:01] LABS: LACTIC ACID SEPSIS PROTOCOL 1.2 MMOL/L (0.4-2.0)
[2017-05-17] MEDS: MORPHINE 10 MG/ML 1ML VIAL IV ×3 (00:48→04:50)
[2017-05-17] MEDS: oxyCODONE 5MG TAB PO ×6 (02:52→23:27)
[2017-05-17] MEDS ORDERED: VANCOMYCIN HCL 1,000 MG, VIAL MATE ADAPTER 1 EACH in D5W 250 ML IV (04:45)
[2017-05-17] MEDS ORDERED: CEFEPIME HCL 1 GM in APPROPRIATE DILUENT 1 EA IV (04:45)
[2017-05-17 04:56] LABS: FREE THYROXINE INDEX 2.1 % (1.4-3.8); T UPTAKE 36 % (33-40); THYROID STIMULATING HORMONE 0.207 uIU/ML (0.358-3.740); THYROXINE (T4) 5.8 UG/DL (4.5-12.0)
[2017-05-17 05:07] LABS: BASO % 0.8 % (0.0-1.0); EOS # 0.1 10^3/uL (0.0-0.50); EOS % 1.6 % (0.0-3.0); HEMATOCRIT 30.9 % (42.0-52.0); HEMOGLOBIN 10.2 g/dl (14.0-18.0); IMMATURE GRANULOCYTE % 0.2 % (0-0); LYMPH # 1.4 10^3/uL (1.5-4.5); MEAN CORPUSCULAR HEMOGLOBIN 28.9 pg (27.0-33.0); MEAN CORPUSCULAR VOLUME 87.5 fl (80.0-96.0); MONO # 0.5 10^3/uL (0.0-0.8); MONO % 10.6 % (0.0-5.0); NEUTROPHILS % 59.8 % (36.0-66.0); PLATELET COUNT, AUTOMATED 167 10^3/uL (150-450); RED BLOOD COUNT 3.53 10^6/uL (4.30-6.10); WHITE BLOOD COUNT 5.1 10^3/uL (4.0-10.0)
[2017-05-17 05:36] LABS: ANION GAP 4 MEQ/L (8-16); BLOOD UREA NITROGEN 10 MG/DL (7-18); CALCIUM LEVEL 6.9 MG/DL (8.5-10.1); CARBON DIOXIDE LEVEL 28 MEQ/L (21-32); CHLORIDE LEVEL 108 MEQ/L (98-107); CREATININE FOR GFR 0.62 MG/DL (0.70-1.30); FREE T3 1.9 PG/ML (2.2-4.0); FREE T4 0.87 NG/DL (0.76-1.46); GLOMERULAR FILTRATION RATE > 60.0 (>56); GLUCOSE, FASTING 73 MG/DL (70-105); SODIUM LEVEL 140 MEQ/L (136-145); THYROID STIMULATING HORMONE 0.849 uIU/ML (0.358-3.740)
[2017-05-17 08:32] LABS: CPK CREATINE PHOSPHOKINASE 28 U/L (39-308); TROPONIN I < 0.02 NG/ML (< 0.10)
[2017-05-17 08:33] LABS: MB/CK RELATIVE INDEX 3.57 (< OR =4)
[2017-05-17] MEDS: SUCRALFATE SUSP 1GM/10ML UD PO ×4 (09:13→21:28)
[2017-05-17] MEDS: MULTIVITAMINS CHILDREN'S CHEWABLE TABLET PO (09:13)
[2017-05-17] MEDS: ASPIRIN 81 MG CHEW TABLET PO (09:13)
[2017-05-17] MEDS: ENOXAPARIN 40 MG/0.4 ML SYRINGE (J1650) SC (09:13)
[2017-05-17] MEDS: CYANOCOBALAMIN 500 MCG TAB PO (09:14)
[2017-05-17] MEDS: VITAMIN D 1,000 INTERNATIONAL UNITS TABLET PO (09:14)
[2017-05-17] MEDS: OMEPRAZOLE 20 MG CAP PO (09:14)
[2017-05-17] MEDS: MORPHINE 4 MG/ML 1ML SYRINGE IV ×5 (09:15→23:26)
[2017-05-17] MEDS: DIAPER RELIEF PASTE (DESITIN) 60GM TOP (14:13)
[2017-05-18] MEDS: MORPHINE 4 MG/ML 1ML SYRINGE IV ×7 (01:28→21:31)
[2017-05-18] MEDS: oxyCODONE 5MG TAB PO ×6 (03:34→23:35)
[2017-05-18 05:15] LABS: BASO % 0.4 % (0.0-1.0); EOS # 0.1 10^3/uL (0.0-0.50); EOS % 2.2 % (0.0-3.0); HEMOGLOBIN 10.7 g/dl (14.0-18.0); IMMATURE GRANULOCYTE % 0.2 % (0-0); LYMPH # 1.5 10^3/uL (1.5-4.5); LYMPH % 30.4 % (24.0-44.0); MEAN CORPUSCULAR HEMOGLOBIN 29.3 pg (27.0-33.0); MEAN CORPUSCULAR HGB CONC 33.4 g/dl (32.0-36.5); MEAN CORPUSCULAR VOLUME 87.7 fl (80.0-96.0); MONO # 0.6 10^3/uL (0.0-0.8); MONO % 11.2 % (0.0-5.0); NEUTROPHILS # 2.7 10^3/uL (1.8-7.7); NEUTROPHILS % 55.6 % (36.0-66.0); PLATELET COUNT, AUTOMATED 159 10^3/uL (150-450); RED BLOOD COUNT 3.65 10^6/uL (4.30-6.10); RED CELL DISTRIBUTION WIDTH 16.8 % (11.5-14.5); WHITE BLOOD COUNT 4.9 10^3/uL (4.0-10.0)
[2017-05-18 05:28] LABS: ANION GAP 3 MEQ/L (8-16); BLOOD UREA NITROGEN 10 MG/DL (7-18); CALCIUM LEVEL 7.4 MG/DL (8.5-10.1); CARBON DIOXIDE LEVEL 28 MEQ/L (21-32); CHLORIDE LEVEL 106 MEQ/L (98-107); CREATININE FOR GFR 0.57 MG/DL (0.70-1.30); GLOMERULAR FILTRATION RATE > 60.0 (>56); GLUCOSE, FASTING 90 MG/DL (70-105); SODIUM LEVEL 137 MEQ/L (136-145)
[2017-05-18] MEDS: SUCRALFATE SUSP 1GM/10ML UD PO ×4 (07:37→21:29)
[2017-05-18] MEDS: MULTIVITAMINS CHILDREN'S CHEWABLE TABLET PO (09:34)
[2017-05-18] MEDS: ASPIRIN 81 MG CHEW TABLET PO (09:35)
[2017-05-18] MEDS: VITAMIN D 1,000 INTERNATIONAL UNITS TABLET PO (09:35)
[2017-05-18] MEDS: CYANOCOBALAMIN 500 MCG TAB PO (09:35)
[2017-05-18] MEDS: OMEPRAZOLE 20 MG CAP PO (09:35)
[2017-05-18] MEDS: ENOXAPARIN 40 MG/0.4 ML SYRINGE (J1650) SC (09:36)
[2017-05-18] MEDS: DIAPER RELIEF PASTE (DESITIN) 60GM TOP ×2 (13:41→18:09)
[2017-05-19] MEDS: MORPHINE 4 MG/ML 1ML SYRINGE IV ×6 (01:32→22:27)
[2017-05-19] MEDS: oxyCODONE 5MG TAB PO ×5 (03:36→20:20)
[2017-05-19 05:15] LABS: BASO % 0.4 % (0.0-1.0); EOS # 0.1 10^3/uL (0.0-0.50); EOS % 1.2 % (0.0-3.0); HEMOGLOBIN 10.5 g/dl (14.0-18.0); IMMATURE GRANULOCYTE % 0.2 % (0-0); LYMPH # 1.1 10^3/uL (1.5-4.5); LYMPH % 22.5 % (24.0-44.0); MEAN CORPUSCULAR HEMOGLOBIN 28.5 pg (27.0-33.0); MEAN CORPUSCULAR HGB CONC 32.8 g/dl (32.0-36.5); MONO # 0.6 10^3/uL (0.0-0.8); MONO % 12.2 % (0.0-5.0); NEUTROPHILS # 3.1 10^3/uL (1.8-7.7); NEUTROPHILS % 63.5 % (36.0-66.0); PLATELET COUNT, AUTOMATED 148 10^3/uL (150-450); RED BLOOD COUNT 3.68 10^6/uL (4.30-6.10); RED CELL DISTRIBUTION WIDTH 16.5 % (11.5-14.5); WHITE BLOOD COUNT 4.9 10^3/uL (4.0-10.0)
[2017-05-19 05:27] LABS: ANION GAP 3 MEQ/L (8-16); BLOOD UREA NITROGEN 11 MG/DL (7-18); CALCIUM LEVEL 7.1 MG/DL (8.5-10.1); CARBON DIOXIDE LEVEL 29 MEQ/L (21-32); CHLORIDE LEVEL 105 MEQ/L (98-107); CREATININE FOR GFR 0.62 MG/DL (0.70-1.30); GLOMERULAR FILTRATION RATE > 60.0 (>56); GLUCOSE, FASTING 79 MG/DL (70-105); POTASSIUM SERUM 4.2 MEQ/L (3.5-5.1); SODIUM LEVEL 137 MEQ/L (136-145)
[2017-05-19] MEDS: SUCRALFATE SUSP 1GM/10ML UD PO ×4 (08:30→20:17)
[2017-05-19] MEDS: MULTIVITAMINS CHILDREN'S CHEWABLE TABLET PO (08:31)
[2017-05-19] MEDS: ASPIRIN 81 MG CHEW TABLET PO (08:31)
[2017-05-19] MEDS: ENOXAPARIN 40 MG/0.4 ML SYRINGE (J1650) SC (08:31)
[2017-05-19] MEDS: CYANOCOBALAMIN 500 MCG TAB PO (08:31)
[2017-05-19] MEDS: OMEPRAZOLE 20 MG CAP PO (08:31)
[2017-05-19] MEDS: VITAMIN D 1,000 INTERNATIONAL UNITS TABLET PO (08:31)
[2017-05-20] MEDS: oxyCODONE 5MG TAB PO ×5 (05:30→22:56)
[2017-05-20 06:23] LABS: BASO % 0.6 % (0.0-1.0); EOS # 0.1 10^3/uL (0.0-0.50); EOS % 1.8 % (0.0-3.0); HEMATOCRIT 37.7 % (42.0-52.0); HEMOGLOBIN 12.3 g/dl (14.0-18.0); IMMATURE GRANULOCYTE % 0.2 % (0-0); LYMPH # 1.2 10^3/uL (1.5-4.5); LYMPH % 23.7 % (24.0-44.0); MEAN CORPUSCULAR HEMOGLOBIN 28.7 pg (27.0-33.0); MEAN CORPUSCULAR HGB CONC 32.6 g/dl (32.0-36.5); MEAN CORPUSCULAR VOLUME 87.9 fl (80.0-96.0); MONO # 0.5 10^3/uL (0.0-0.8); MONO % 10.8 % (0.0-5.0); NEUTROPHILS # 3.1 10^3/uL (1.8-7.7); NEUTROPHILS % 62.9 % (36.0-66.0); PLATELET COUNT, AUTOMATED 147 10^3/uL (150-450); RED BLOOD COUNT 4.29 10^6/uL (4.30-6.10); RED CELL DISTRIBUTION WIDTH 16.5 % (11.5-14.5); WHITE BLOOD COUNT 4.9 10^3/uL (4.0-10.0)
[2017-05-20 06:30] LABS: ANION GAP 3 MEQ/L (8-16); BLOOD UREA NITROGEN 11 MG/DL (7-18); CALCIUM LEVEL 7.8 MG/DL (8.5-10.1); CARBON DIOXIDE LEVEL 29 MEQ/L (21-32); CHLORIDE LEVEL 104 MEQ/L (98-107); CREATININE FOR GFR 0.62 MG/DL (0.70-1.30); GLOMERULAR FILTRATION RATE > 60.0 (>56); GLUCOSE, FASTING 75 MG/DL (70-105); POTASSIUM SERUM 3.9 MEQ/L (3.5-5.1); SODIUM LEVEL 136 MEQ/L (136-145)
[2017-05-20] MEDS: OMEPRAZOLE 20 MG CAP PO (07:44)
[2017-05-20] MEDS: SUCRALFATE SUSP 1GM/10ML UD PO ×4 (07:44→20:39)
[2017-05-20] MEDS: MORPHINE 4 MG/ML 1ML SYRINGE IV ×4 (07:44→20:40)
[2017-05-20] MEDS: CYANOCOBALAMIN 500 MCG TAB PO (07:44)
[2017-05-20] MEDS: ASPIRIN 81 MG CHEW TABLET PO (07:44)
[2017-05-20] MEDS: VITAMIN D 1,000 INTERNATIONAL UNITS TABLET PO (07:44)
[2017-05-20] MEDS: MULTIVITAMINS CHILDREN'S CHEWABLE TABLET PO (07:44)
[2017-05-20] MEDS: ENOXAPARIN 40 MG/0.4 ML SYRINGE (J1650) SC (07:45)
[2017-05-21] MEDS: MORPHINE 4 MG/ML 1ML SYRINGE IV ×6 (01:33→23:25)
[2017-05-21] MEDS: oxyCODONE 5MG TAB PO ×5 (04:16→20:59)
[2017-05-21 06:21] LABS: BASO % 0.7 % (0.0-1.0); EOS # 0.1 10^3/uL (0.0-0.50); EOS % 1.8 % (0.0-3.0); HEMATOCRIT 33.6 % (42.0-52.0); IMMATURE GRANULOCYTE % 0.2 % (0-0); LYMPH # 0.9 10^3/uL (1.5-4.5); MEAN CORPUSCULAR HGB CONC 32.7 g/dl (32.0-36.5); MEAN CORPUSCULAR VOLUME 88.7 fl (80.0-96.0); MONO # 0.5 10^3/uL (0.0-0.8); MONO % 12.2 % (0.0-5.0); NEUTROPHILS # 2.8 10^3/uL (1.8-7.7); NEUTROPHILS % 64.1 % (36.0-66.0); PLATELET COUNT, AUTOMATED 114 10^3/uL (150-450); RED BLOOD COUNT 3.79 10^6/uL (4.30-6.10); RED CELL DISTRIBUTION WIDTH 16.3 % (11.5-14.5); WHITE BLOOD COUNT 4.3 10^3/uL (4.0-10.0)
[2017-05-21 06:39] LABS: ANION GAP 5 MEQ/L (8-16); BLOOD UREA NITROGEN 12 MG/DL (7-18); CALCIUM LEVEL 7.4 MG/DL (8.5-10.1); CARBON DIOXIDE LEVEL 28 MEQ/L (21-32); CHLORIDE LEVEL 107 MEQ/L (98-107); CREATININE FOR GFR 0.63 MG/DL (0.70-1.30); GLOMERULAR FILTRATION RATE > 60.0 (>56); GLUCOSE, FASTING 76 MG/DL (70-105); POTASSIUM SERUM 4.1 MEQ/L (3.5-5.1); SODIUM LEVEL 140 MEQ/L (136-145)
[2017-05-21] MEDS: VITAMIN D 1,000 INTERNATIONAL UNITS TABLET PO (08:14)
[2017-05-21] MEDS: ENOXAPARIN 40 MG/0.4 ML SYRINGE (J1650) SC (08:15)
[2017-05-21] MEDS: OMEPRAZOLE 20 MG CAP PO (08:15)
[2017-05-21] MEDS: MULTIVITAMINS CHILDREN'S CHEWABLE TABLET PO (08:15)
[2017-05-21] MEDS: CYANOCOBALAMIN 500 MCG TAB PO (08:15)
[2017-05-21] MEDS: SUCRALFATE SUSP 1GM/10ML UD PO ×4 (08:15→20:58)
[2017-05-21] MEDS: ASPIRIN 81 MG CHEW TABLET PO (08:15)
[2017-05-22] MEDS: oxyCODONE 5MG TAB PO ×6 (01:00→23:05)
[2017-05-22] MEDS: MORPHINE 4 MG/ML 1ML SYRINGE IV ×5 (03:25→20:47)
[2017-05-22 06:47] LABS: BASO % 0.6 % (0.0-1.0); EOS # 0.1 10^3/uL (0.0-0.50); EOS % 2.1 % (0.0-3.0); HEMATOCRIT 36.6 % (42.0-52.0); HEMOGLOBIN 12.1 g/dl (14.0-18.0); LYMPH # 1.1 10^3/uL (1.5-4.5); MEAN CORPUSCULAR HEMOGLOBIN 28.8 pg (27.0-33.0); MEAN CORPUSCULAR HGB CONC 33.1 g/dl (32.0-36.5); MEAN CORPUSCULAR VOLUME 87.1 fl (80.0-96.0); MONO # 0.7 10^3/uL (0.0-0.8); MONO % 13.9 % (0.0-5.0); NEUTROPHILS # 3.3 10^3/uL (1.8-7.7); NEUTROPHILS % 62.4 % (36.0-66.0); PLATELET COUNT, AUTOMATED 112 10^3/uL (150-450); RED CELL DISTRIBUTION WIDTH 16.4 % (11.5-14.5); WHITE BLOOD COUNT 5.2 10^3/uL (4.0-10.0)
[2017-05-22 07:09] LABS: ANION GAP 5 MEQ/L (8-16); BLOOD UREA NITROGEN 10 MG/DL (7-18); CALCIUM LEVEL 7.8 MG/DL (8.5-10.1); CARBON DIOXIDE LEVEL 29 MEQ/L (21-32); CHLORIDE LEVEL 102 MEQ/L (98-107); CREATININE FOR GFR 0.49 MG/DL (0.70-1.30); GLOMERULAR FILTRATION RATE > 60.0 (>56); GLUCOSE, FASTING 70 MG/DL (70-105); POTASSIUM SERUM 3.8 MEQ/L (3.5-5.1); SODIUM LEVEL 136 MEQ/L (136-145)
[2017-05-22] MEDS: SUCRALFATE SUSP 1GM/10ML UD PO ×4 (08:06→20:46)
[2017-05-22] MEDS: ASPIRIN 81 MG CHEW TABLET PO (08:06)
[2017-05-22] MEDS: VITAMIN D 1,000 INTERNATIONAL UNITS TABLET PO (08:07)
[2017-05-22] MEDS: ENOXAPARIN 40 MG/0.4 ML SYRINGE (J1650) SC (08:07)
[2017-05-22] MEDS: OMEPRAZOLE 20 MG CAP PO (08:07)
[2017-05-22] MEDS: MULTIVITAMINS CHILDREN'S CHEWABLE TABLET PO (08:11)
[2017-05-22] MEDS: CYANOCOBALAMIN 500 MCG TAB PO (08:11)
[2017-05-23] MEDS: MORPHINE 4 MG/ML 1ML SYRINGE IV ×6 (00:51→23:07)
[2017-05-23] MEDS: oxyCODONE 5MG TAB PO ×5 (03:19→21:03)
[2017-05-23 05:53] LABS: BASO % 0.4 % (0.0-1.0); EOS # 0.1 10^3/uL (0.0-0.50); EOS % 1.7 % (0.0-3.0); HEMATOCRIT 32.1 % (42.0-52.0); HEMOGLOBIN 10.7 g/dl (14.0-18.0); IMMATURE GRANULOCYTE % 0.2 % (0-0); LYMPH % 21.6 % (24.0-44.0); MEAN CORPUSCULAR HEMOGLOBIN 29.6 pg (27.0-33.0); MEAN CORPUSCULAR HGB CONC 33.3 g/dl (32.0-36.5); MEAN CORPUSCULAR VOLUME 88.9 fl (80.0-96.0); MONO # 0.7 10^3/uL (0.0-0.8); MONO % 15.7 % (0.0-5.0); NEUTROPHILS # 2.8 10^3/uL (1.8-7.7); NEUTROPHILS % 60.4 % (36.0-66.0); PLATELET COUNT, AUTOMATED 100 10^3/uL (150-450); RED BLOOD COUNT 3.61 10^6/uL (4.30-6.10); RED CELL DISTRIBUTION WIDTH 16.6 % (11.5-14.5); WHITE BLOOD COUNT 4.6 10^3/uL (4.0-10.0)
[2017-05-23 06:06] LABS: ANION GAP 5 MEQ/L (8-16); BLOOD UREA NITROGEN 9 MG/DL (7-18); CALCIUM LEVEL 7.3 MG/DL (8.5-10.1); CARBON DIOXIDE LEVEL 29 MEQ/L (21-32); CHLORIDE LEVEL 105 MEQ/L (98-107); CREATININE FOR GFR 0.61 MG/DL (0.70-1.30); GLOMERULAR FILTRATION RATE > 60.0 (>56); GLUCOSE, FASTING 87 MG/DL (70-105); POTASSIUM SERUM 4.1 MEQ/L (3.5-5.1); SODIUM LEVEL 139 MEQ/L (136-145)
[2017-05-23] MEDS: SUCRALFATE SUSP 1GM/10ML UD PO ×4 (08:02→21:01)
[2017-05-23] MEDS: ENOXAPARIN 40 MG/0.4 ML SYRINGE (J1650) SC (08:02)
[2017-05-23] MEDS: ASPIRIN 81 MG CHEW TABLET PO (08:03)
[2017-05-23] MEDS: CYANOCOBALAMIN 500 MCG TAB PO (08:03)
[2017-05-23] MEDS: VITAMIN D 1,000 INTERNATIONAL UNITS TABLET PO (08:03)
[2017-05-23] MEDS: OMEPRAZOLE 20 MG CAP PO (08:03)
[2017-05-23] MEDS: MULTIVITAMINS CHILDREN'S CHEWABLE TABLET PO (08:03)
[2017-05-24] MEDS: oxyCODONE 5MG TAB PO ×5 (03:09→20:33)
[2017-05-24] MEDS: MORPHINE 4 MG/ML 1ML SYRINGE IV (03:55)
[2017-05-24] MEDS: SUCRALFATE SUSP 1GM/10ML UD PO ×4 (07:51→20:30)
[2017-05-24] MEDS: MULTIVITAMINS CHILDREN'S CHEWABLE TABLET PO (07:51)
[2017-05-24] MEDS: ASPIRIN 81 MG CHEW TABLET PO (07:52)
[2017-05-24] MEDS: ENOXAPARIN 40 MG/0.4 ML SYRINGE (J1650) SC (07:52)
[2017-05-24] MEDS: OMEPRAZOLE 20 MG CAP PO (07:52)
[2017-05-24] MEDS: VITAMIN D 1,000 INTERNATIONAL UNITS TABLET PO (07:52)
[2017-05-24] MEDS: CYANOCOBALAMIN 500 MCG TAB PO (07:53)
[2017-05-25] MEDS: oxyCODONE 5MG TAB PO ×6 (00:37→21:22)
[2017-05-25] MEDS: MULTIVITAMINS CHILDREN'S CHEWABLE TABLET PO (08:55)
[2017-05-25] MEDS: SUCRALFATE SUSP 1GM/10ML UD PO ×4 (08:55→21:20)
[2017-05-25] MEDS: ENOXAPARIN 40 MG/0.4 ML SYRINGE (J1650) SC (08:55)
[2017-05-25] MEDS: VITAMIN D 1,000 INTERNATIONAL UNITS TABLET PO (08:55)
[2017-05-25] MEDS: ASPIRIN 81 MG CHEW TABLET PO (08:55)
[2017-05-25] MEDS: CYANOCOBALAMIN 500 MCG TAB PO (08:56)
[2017-05-25] MEDS: OMEPRAZOLE 20 MG CAP PO (08:56)
[2017-05-25] MEDS: DIAPER RELIEF PASTE (DESITIN) 60GM TOP (08:57)
[2017-05-26] MEDS: oxyCODONE 5MG TAB PO ×6 (01:22→22:30)
[2017-05-26] MEDS: SUCRALFATE SUSP 1GM/10ML UD PO ×4 (09:45→20:03)
[2017-05-26] MEDS: ENOXAPARIN 40 MG/0.4 ML SYRINGE (J1650) SC (09:46)
[2017-05-26] MEDS: ASPIRIN 81 MG CHEW TABLET PO (09:48)
[2017-05-26] MEDS: MULTIVITAMINS CHILDREN'S CHEWABLE TABLET PO (09:48)
[2017-05-26] MEDS: CYANOCOBALAMIN 500 MCG TAB PO (09:48)
[2017-05-26] MEDS: VITAMIN D 1,000 INTERNATIONAL UNITS TABLET PO (09:48)
[2017-05-26] MEDS: OMEPRAZOLE 20 MG CAP PO (09:49)
[2017-05-27] MEDS: oxyCODONE 5MG TAB PO ×3 (02:48→11:10)
[2017-05-27] MEDS: OMEPRAZOLE 20 MG CAP PO (08:12)
[2017-05-27] MEDS: ENOXAPARIN 40 MG/0.4 ML SYRINGE (J1650) SC (08:12)
[2017-05-27] MEDS: SUCRALFATE SUSP 1GM/10ML UD PO ×2 (08:12→12:07)
[2017-05-27] MEDS: MULTIVITAMINS CHILDREN'S CHEWABLE TABLET PO (08:12)
[2017-05-27] MEDS: CYANOCOBALAMIN 500 MCG TAB PO (08:12)
[2017-05-27] MEDS: ASPIRIN 81 MG CHEW TABLET PO (08:12)
[2017-05-27] MEDS: VITAMIN D 1,000 INTERNATIONAL UNITS TABLET PO (08:12)
== END 2017-05-27 12:22 | disposition home or self-care (01) | DRG 347 ==
LOC: M ICU 05-17 05:20 → M MSPAV 05-19 18:31 → M PCU 05-17 05:26 → M ED 11:09 → M ED INP 16:00 → M PCU 18:00
DX: S32.049A Unspecified fracture of fourth lumbar vertebra, initial encounter for closed fracture (principal); E43 Unspecified severe protein-calorie malnutrition; R55 Syncope and collapse; Z93.1 Gastrostomy status; F11.20 Opioid dependence, uncomplicated; Z79.899 Other long term (current) drug therapy; R10.9 Unspecified abdominal pain; W18.30XA Fall on same level, unspecified, initial encounter; Y92.009 Unspecified place in unspecified non-institutional (private) residence as the place of occurrence of the external cause; R19.7 Diarrhea, unspecified; Z98.84 Bariatric surgery status; Z79.82 Long term (current) use of aspirin; F17.200 Nicotine dependence, unspecified, uncomplicated; F32.9 Major depressive disorder, single episode, unspecified; K21.9 Gastro-esophageal reflux disease without esophagitis; K29.70 Gastritis, unspecified, without bleeding; K27.9 Peptic ulcer, site unspecified, unspecified as acute or chronic, without hemorrhage or perforation

== ENCOUNTER → 2017-07-06 | Outpatient (CLI) | payer MEDICARE, OTHER ==
[2017-07-06 13:06] LABS: BASO % 0.7 % (0.0-1.0); EOS # 0.1 10^3/uL (0.0-0.50); EOS % 1.3 % (0.0-3.0); HEMATOCRIT 34.8 % (42.0-52.0); HEMOGLOBIN 11.3 g/dl (14.0-18.0); IMMATURE GRANULOCYTE % 0.2 % (0-3.0); LYMPH % 21.5 % (24.0-44.0); MEAN CORPUSCULAR HEMOGLOBIN 30.9 pg (27.0-33.0); MEAN CORPUSCULAR HGB CONC 32.5 g/dl (32.0-36.5); MEAN CORPUSCULAR VOLUME 95.1 fl (80.0-96.0); MONO # 0.4 10^3/uL (0.0-0.8); MONO % 7.9 % (0.0-5.0); NEUTROPHILS # 3.1 10^3/uL (1.8-7.7); NEUTROPHILS % 68.4 % (36.0-66.0); PLATELET COUNT, AUTOMATED 177 10^3/uL (150-450); RED BLOOD COUNT 3.66 10^6/uL (4.30-6.10); RED CELL DISTRIBUTION WIDTH 14.6 % (11.5-14.5); WHITE BLOOD COUNT 4.6 10^3/uL (4.0-10.0)
[2017-07-06 14:16] LABS: ALBUMIN 2.4 GM/DL (3.2-5.2); ALBUMIN/GLOBULIN RATIO 0.59 (1.00-1.93); ALKALINE PHOSPHATASE 103 U/L (45-117); ALT/SGPT 16 U/L (12-78); ANION GAP 5 MEQ/L (8-16); AST/SGOT 14 U/L (7-37); BILIRUBIN,TOTAL 0.2 MG/DL (0.2-1.0); BLOOD UREA NITROGEN 17 MG/DL (7-18); CALCIUM LEVEL 7.7 MG/DL (8.5-10.1); CARBON DIOXIDE LEVEL 28 MEQ/L (21-32); CHLORIDE LEVEL 105 MEQ/L (98-107); CREATININE FOR GFR 0.89 MG/DL (0.70-1.30); GLOMERULAR FILTRATION RATE > 60.0 (>56); GLUCOSE, FASTING 73 MG/DL (70-100); SODIUM LEVEL 138 MEQ/L (136-145); TOTAL PROTEIN 6.5 GM/DL (6.4-8.2)
== END ==
LOC: M LAB 12:30
DX: A09 Infectious gastroenteritis and colitis, unspecified (principal)
CPT/HCPCS: 80053

== ENCOUNTER 2017-08-05 11:33 | Emergency (ER) | payer MEDICARE ==
[2017-08-05] MEDS: NS 1,000 ML IV (13:00)
[2017-08-05] MEDS: ONDANSETRON 4MG/2ML VIAL (J2405) IV (13:34)
[2017-08-05] MEDS: MORPHINE 4 MG/ML 1ML VIAL (J2270) IV ×3 (13:35→15:19)
[2017-08-05 15:00] LABS: BASO % 0.2 % (0.0-1.0); EOS % 0.2 % (0.0-3.0); HEMATOCRIT 30.3 % (42.0-52.0); HEMOGLOBIN 9.7 g/dl (14.0-18.0); IMMATURE GRANULOCYTE % 0.4 % (0-3.0); LYMPH # 0.8 10^3/uL (1.5-4.5); LYMPH % 14.7 % (24.0-44.0); MEAN CORPUSCULAR HEMOGLOBIN 30.8 pg (27.0-33.0); MEAN CORPUSCULAR VOLUME 96.2 fl (80.0-96.0); MONO # 0.3 10^3/uL (0.0-0.8); MONO % 5.8 % (0.0-5.0); NEUTROPHILS # 4.2 10^3/uL (1.8-7.7); NEUTROPHILS % 78.7 % (36.0-66.0); PLATELET COUNT, AUTOMATED 165 10^3/uL (150-450); RED BLOOD COUNT 3.15 10^6/uL (4.30-6.10); RED CELL DISTRIBUTION WIDTH 12.9 % (11.5-14.5); WHITE BLOOD COUNT 5.3 10^3/uL (4.0-10.0)
[2017-08-05 15:22] LABS: ALBUMIN 2.1 GM/DL (3.2-5.2); ALBUMIN/GLOBULIN RATIO 0.48 (1.00-1.93); ALKALINE PHOSPHATASE 129 U/L (45-117); ALT/SGPT 27 U/L (12-78); ANION GAP 4 MEQ/L (8-16); AST/SGOT 51 U/L (7-37); BILIRUBIN,DIRECT < 0.1 MG/DL (0.0-0.2); BILIRUBIN,TOTAL 0.2 MG/DL (0.2-1.0); BLOOD UREA NITROGEN 13 MG/DL (7-18); CALCIUM LEVEL 7.7 MG/DL (8.5-10.1); CARBON DIOXIDE LEVEL 27 MEQ/L (21-32); CHLORIDE LEVEL 110 MEQ/L (98-107); CREATININE FOR GFR 0.59 MG/DL (0.70-1.30); GLOMERULAR FILTRATION RATE > 60.0 (>56); GLUCOSE, FASTING 75 MG/DL (70-100); LIPASE 94 U/L (73-393); POTASSIUM SERUM 3.9 MEQ/L (3.5-5.1); SODIUM LEVEL 141 MEQ/L (136-145); TOTAL PROTEIN 6.5 GM/DL (6.4-8.2)
[2017-08-05 15:24] LABS: LACTIC ACID SEPSIS PROTOCOL 1.4 MMOL/L (0.4-2.0)
[2017-08-05] MEDS: HYDROmorphone HCL 1 MG/ML SYRINGE (J1170) IV (15:39)
[2017-08-05] MEDS: oxyCODONE 5MG TAB PO (16:14)
== END 2017-08-05 16:38 | disposition home or self-care (01) ==
LOC: M ED 11:33
DX: G89.29 Other chronic pain (principal); R10.9 Unspecified abdominal pain; I25.2 Old myocardial infarction; I10 Essential (primary) hypertension; R51 Headache; R42 Dizziness and giddiness; Z86.19 Personal history of other infectious and parasitic diseases; Z87.01 Personal history of pneumonia (recurrent); Z86.718 Personal history of other venous thrombosis and embolism; F17.200 Nicotine dependence, unspecified, uncomplicated; Z79.82 Long term (current) use of aspirin; Z79.899 Other long term (current) drug therapy
CPT/HCPCS: J1170

== ENCOUNTER 2017-09-15 04:17 | Emergency (ER) | payer OTHER, MEDICARE ==
[2017-09-15] MEDS: KETOROLAC 60 MG/2 ML VIAL (J1885) IM (05:47)
== END 2017-09-15 05:49 | disposition home or self-care (01) ==
LOC: M ED 04:17
DX: F45.42 Pain disorder with related psychological factors (principal); M54.9 Dorsalgia, unspecified; R10.9 Unspecified abdominal pain; G89.29 Other chronic pain; F11.20 Opioid dependence, uncomplicated; Z79.899 Other long term (current) drug therapy; Z79.82 Long term (current) use of aspirin; Z98.890 Other specified postprocedural states; Z87.19 Personal history of other diseases of the digestive system
CPT/HCPCS: J1885

== ENCOUNTER 2017-10-07 08:24 | Emergency (ER) | payer MEDICARE, OTHER ==
[2017-10-07] MEDS: ASPIRIN 81 MG CHEW TABLET PO (09:03)
[2017-10-07] MEDS: MORPHINE 4 MG/ML 1ML VIAL/SYRINGE (J2270) IV (09:04)
[2017-10-07 09:06] LABS: BASO % 0.2 % (0.0-1.0); EOS % 0.2 % (0.0-3.0); HEMATOCRIT 37.8 % (42.0-52.0); HEMOGLOBIN 12.3 g/dl (13.5-17.5); IMMATURE GRANULOCYTE % 0.3 % (0-3.0); LYMPH # 0.8 10^3/uL (1.5-4.5); LYMPH % 12.8 % (24.0-44.0); MEAN CORPUSCULAR HEMOGLOBIN 29.2 pg (27.0-33.0); MEAN CORPUSCULAR HGB CONC 32.5 g/dl (32.0-36.5); MEAN CORPUSCULAR VOLUME 89.8 fl (80.0-96.0); MONO # 0.4 10^3/uL (0.0-0.8); MONO % 6.3 % (0.0-5.0); NEUTROPHILS # 4.8 10^3/uL (1.8-7.7); NEUTROPHILS % 80.2 % (36.0-66.0); PLATELET COUNT, AUTOMATED 165 10^3/uL (150-450); RED BLOOD COUNT 4.21 10^6/uL (4.30-6.10); RED CELL DISTRIBUTION WIDTH 14.7 % (11.5-14.5)
[2017-10-07 09:20] LABS: INR 1.02; PROTHROMBIN TIME 13.5 SECONDS (12.4-14.5)
[2017-10-07 09:34] LABS: ALBUMIN 2.2 GM/DL (3.2-5.2); ALKALINE PHOSPHATASE 148 U/L (45-117); ALT/SGPT 22 U/L (12-78); ANION GAP 5 MEQ/L (8-16); AST/SGOT 24 U/L (7-37); BILIRUBIN,DIRECT 0.1 MG/DL (0.0-0.2); BILIRUBIN,TOTAL 0.3 MG/DL (0.2-1.0); BLOOD UREA NITROGEN 10 MG/DL (7-18); CALCIUM LEVEL 7.5 MG/DL (8.5-10.1); CARBON DIOXIDE LEVEL 26 MEQ/L (21-32); CHLORIDE LEVEL 109 MEQ/L (98-107); CPK CREATINE PHOSPHOKINASE 48 U/L (39-308); CREATININE FOR GFR 0.58 MG/DL (0.70-1.30); GLOMERULAR FILTRATION RATE > 60.0 (>56); GLUCOSE, FASTING 98 MG/DL (70-100); LIPASE 77 U/L (73-393); POTASSIUM SERUM 4.1 MEQ/L (3.5-5.1); SODIUM LEVEL 140 MEQ/L (136-145); TOTAL PROTEIN 6.6 GM/DL (6.4-8.2); TROPONIN I < 0.02 NG/ML (< 0.10)
[2017-10-07 09:40] LABS: CK-MB VALUE MASS < 1.0 NG/ML (<3.6); MB/CK RELATIVE INDEX 2.08 (< OR =4); NT-PRO BNP 933 PG/ML (<125); THYROID STIMULATING HORMONE 0.405 uIU/ML (0.358-3.740)
[2017-10-07] MEDS: HYDROmorphone HCL 1 MG/ML SYRINGE (J1170) IV ×3 (09:47→14:25)
[2017-10-07] MEDS: oxyCODONE 5MG TAB PO (11:47)
[2017-10-07 13:00] LABS: CPK CREATINE PHOSPHOKINASE 31 U/L (39-308); TROPONIN I < 0.02 NG/ML (< 0.10)
[2017-10-07 13:01] LABS: CK-MB VALUE MASS < 1.0 NG/ML (<3.6); MB/CK RELATIVE INDEX 3.22 (< OR =4)
[2017-10-07] MEDS ORDERED: ISOVUE-370 76% 100ML VIAL (Q9967) As Ordered (14:17)
== END 2017-10-07 15:43 | disposition home or self-care (01) ==
LOC: M ED 08:24
DX: R07.9 Chest pain, unspecified (principal); I25.2 Old myocardial infarction; I10 Essential (primary) hypertension; F32.9 Major depressive disorder, single episode, unspecified; Z98.84 Bariatric surgery status; K22.2 Esophageal obstruction; Z87.19 Personal history of other diseases of the digestive system; Z93.1 Gastrostomy status; F17.200 Nicotine dependence, unspecified, uncomplicated; Z80.9 Family history of malignant neoplasm, unspecified; N28.1 Cyst of kidney, acquired; Z79.82 Long term (current) use of aspirin; Z79.899 Other long term (current) drug therapy
CPT/HCPCS: J1170

== ENCOUNTER 2017-10-31 03:27 | Emergency (ER) | payer MEDICARE ==
[2017-10-31 04:27] LABS: BASO % 0.3 % (0.0-1.0); HEMATOCRIT 32.2 % (42.0-52.0); HEMOGLOBIN 10.6 g/dl (13.5-17.5); LYMPH % 24.7 % (24.0-44.0); MEAN CORPUSCULAR HEMOGLOBIN 29.8 pg (27.0-33.0); MEAN CORPUSCULAR HGB CONC 32.9 g/dl (32.0-36.5); MEAN CORPUSCULAR VOLUME 90.4 fl (80.0-96.0); MONO # 0.3 10^3/uL (0.0-0.8); MONO % 8.8 % (0.0-5.0); NEUTROPHILS # 2.5 10^3/uL (1.8-7.7); NEUTROPHILS % 65.2 % (36.0-66.0); PLATELET COUNT, AUTOMATED 120 10^3/uL (150-450); RED BLOOD COUNT 3.56 10^6/uL (4.30-6.10); RED CELL DISTRIBUTION WIDTH 15.8 % (11.5-14.5); WHITE BLOOD COUNT 3.9 10^3/uL (4.0-10.0)
[2017-10-31 04:32] LABS: INR 1.11; PROTHROMBIN TIME 14.5 SECONDS (12.4-14.5)
[2017-10-31 04:33] LABS: PARTIAL THROMBOPLASTIN TIME 41.1 SECONDS (26.8-37.9)
[2017-10-31 04:46] LABS: ANION GAP 4 MEQ/L (8-16); BLOOD UREA NITROGEN 11 MG/DL (7-18); CALCIUM LEVEL 7.6 MG/DL (8.5-10.1); CARBON DIOXIDE LEVEL 28 MEQ/L (21-32); CHLORIDE LEVEL 110 MEQ/L (98-107); CPK CREATINE PHOSPHOKINASE 48 U/L (39-308); CREATININE FOR GFR 0.67 MG/DL (0.70-1.30); GLOMERULAR FILTRATION RATE > 60.0 (>56); GLUCOSE, FASTING 106 MG/DL (70-100); POTASSIUM SERUM 4.4 MEQ/L (3.5-5.1); SODIUM LEVEL 142 MEQ/L (136-145); TROPONIN I < 0.02 NG/ML (< 0.10)
[2017-10-31 04:47] LABS: CK-MB VALUE MASS 1.3 NG/ML (<3.6)
[2017-10-31] MEDS: ACETAMINOPHEN 325 MG TAB PO (04:49)
== END 2017-10-31 05:27 | disposition home or self-care (01) ==
LOC: M ED 03:27
DX: G89.4 Chronic pain syndrome (principal); K21.9 Gastro-esophageal reflux disease without esophagitis; M54.9 Dorsalgia, unspecified; Z86.718 Personal history of other venous thrombosis and embolism; F11.20 Opioid dependence, uncomplicated; F17.210 Nicotine dependence, cigarettes, uncomplicated

== ENCOUNTER 2017-10-31 08:32 | Emergency (ER) | payer MEDICARE ==
[2017-10-31] MEDS: MORPHINE 2 MG/ML 1ML SYRINGE (J2270) IV (09:43)
[2017-10-31 09:58] LABS: BASO % 0.4 % (0.0-1.0); HEMATOCRIT 31.9 % (42.0-52.0); HEMOGLOBIN 10.5 g/dl (13.5-17.5); IMMATURE GRANULOCYTE % 0.2 % (0-3.0); LYMPH # 0.6 10^3/uL (1.5-4.5); LYMPH % 13.7 % (24.0-44.0); MEAN CORPUSCULAR HEMOGLOBIN 29.7 pg (27.0-33.0); MEAN CORPUSCULAR HGB CONC 32.9 g/dl (32.0-36.5); MEAN CORPUSCULAR VOLUME 90.1 fl (80.0-96.0); MONO # 0.4 10^3/uL (0.0-0.8); MONO % 7.9 % (0.0-5.0); NEUTROPHILS # 3.6 10^3/uL (1.8-7.7); NEUTROPHILS % 77.8 % (36.0-66.0); PLATELET COUNT, AUTOMATED 105 10^3/uL (150-450); RED BLOOD COUNT 3.54 10^6/uL (4.30-6.10); RED CELL DISTRIBUTION WIDTH 15.8 % (11.5-14.5); WHITE BLOOD COUNT 4.7 10^3/uL (4.0-10.0)
[2017-10-31 10:02] LABS: ANION GAP 2 MEQ/L (8-16); BLOOD UREA NITROGEN 10 MG/DL (7-18); CALCIUM LEVEL 7.5 MG/DL (8.5-10.1); CARBON DIOXIDE LEVEL 28 MEQ/L (21-32); CHLORIDE LEVEL 110 MEQ/L (98-107); CPK CREATINE PHOSPHOKINASE 49 U/L (39-308); CREATININE FOR GFR 0.56 MG/DL (0.70-1.30); GLOMERULAR FILTRATION RATE > 60.0 (>56); GLUCOSE, FASTING 74 MG/DL (70-100); LIPASE 63 U/L (73-393); POTASSIUM SERUM 4.2 MEQ/L (3.5-5.1); SODIUM LEVEL 140 MEQ/L (136-145); TROPONIN I < 0.02 NG/ML (< 0.10)
[2017-10-31 10:03] LABS: CK-MB VALUE MASS 1.5 NG/ML (<3.6); MB/CK RELATIVE INDEX 3.06 (< OR =4); NT-PRO BNP 564 PG/ML (<125)
[2017-10-31] MEDS ORDERED: ISOVUE-370 76% 100ML VIAL (Q9967) As Ordered (10:15)
[2017-10-31] MEDS: MORPHINE 4 MG/ML 1ML VIAL/SYRINGE (J2270) IV (10:40)
[2017-10-31] MEDS: diphenhydrAMINE INJ 50MG/ML VIAL (J1200) IV (11:52)
[2017-10-31] MEDS: oxyCODONE 5MG TAB PO (12:28)
== END 2017-10-31 12:40 | disposition home or self-care (01) ==
LOC: M ED 08:32
DX: R07.9 Chest pain, unspecified (principal); F17.200 Nicotine dependence, unspecified, uncomplicated; Z87.19 Personal history of other diseases of the digestive system; Z86.39 Personal history of other endocrine, nutritional and metabolic disease; Z86.2 Personal history of diseases of the blood and blood-forming organs and certain disorders involving the immune mechanism; Z98.0 Intestinal bypass and anastomosis status; Z79.899 Other long term (current) drug therapy
CPT/HCPCS: J2270

== ENCOUNTER → 2018-02-17 | Outpatient (REF) | payer OTHER, MEDICARE ==
[2018-02-17 19:30] LABS: BASO % 0.6 % (0.0-1.0); EOS % 0.8 % (0.0-3.0); HEMATOCRIT 27.2 % (42.0-52.0); HEMOGLOBIN 8.6 g/dl (13.5-17.5); IMMATURE GRANULOCYTE % 0.2 % (0-3.0); LYMPH # 1.1 10^3/uL (1.5-4.5); LYMPH % 22.6 % (24.0-44.0); MEAN CORPUSCULAR HEMOGLOBIN 30.9 pg (27.0-33.0); MEAN CORPUSCULAR HGB CONC 31.6 g/dl (32.0-36.5); MEAN CORPUSCULAR VOLUME 97.8 fl (80.0-96.0); MONO # 0.6 10^3/uL (0.0-0.8); MONO % 11.6 % (0.0-5.0); NEUTROPHILS # 3.1 10^3/uL (1.8-7.7); NEUTROPHILS % 64.2 % (36.0-66.0); PLATELET COUNT, AUTOMATED 127 10^3/uL (150-450); RED BLOOD COUNT 2.78 10^6/uL (4.30-6.10); RED CELL DISTRIBUTION WIDTH 15.5 % (11.5-14.5); WHITE BLOOD COUNT 4.8 10^3/uL (4.0-10.0)
[2018-02-17 20:40] LABS: ALBUMIN 1.7 GM/DL (3.2-5.2); ALBUMIN/GLOBULIN RATIO 0.41 (1.00-1.93); ALKALINE PHOSPHATASE 107 U/L (45-117); ALT/SGPT 22 U/L (12-78); ANION GAP 7 MEQ/L (8-16); AST/SGOT 22 U/L (7-37); BILIRUBIN,TOTAL 0.3 MG/DL (0.2-1.0); BLOOD UREA NITROGEN 15 MG/DL (7-18); CALCIUM LEVEL 7.3 MG/DL (8.5-10.1); CARBON DIOXIDE LEVEL 26 MEQ/L (21-32); CHLORIDE LEVEL 109 MEQ/L (98-107); GLOMERULAR FILTRATION RATE > 60.0 (>56); GLUCOSE, FASTING 71 MG/DL (70-100); MAGNESIUM LEVEL 1.8 MG/DL (1.8-2.4); PHOSPHORUS LEVEL 2.7 MG/DL (2.5-4.9); POTASSIUM SERUM 4.3 MEQ/L (3.5-5.1); SODIUM LEVEL 142 MEQ/L (136-145); TOTAL PROTEIN 5.8 GM/DL (6.4-8.2); TRIGLYCERIDES LEVEL 64 MG/DL (<150)
== END ==
LOC: M LAB REF 19:07
DX: E46 Unspecified protein-calorie malnutrition (principal)

== ENCOUNTER 2018-02-19 13:06 | Emergency (ER) | payer OTHER, MEDICARE | END 2018-02-19 14:46 | disposition home or self-care (01) | LOC: M ED 13:06 | DX: R60.9 Edema, unspecified (principal); E46 Unspecified protein-calorie malnutrition; I10 Essential (primary) hypertension; F17.200 Nicotine dependence, unspecified, uncomplicated; Z79.899 Other long term (current) drug therapy | CPT/HCPCS: 99282 ==

== ENCOUNTER → 2018-02-22 | Outpatient (REF) | payer OTHER ==
[2018-02-22 19:30] LABS: BASO % 0.3 % (0.0-1.0); EOS % 1.1 % (0.0-3.0); HEMATOCRIT 24.9 % (42.0-52.0); IMMATURE GRANULOCYTE % 0.3 % (0-3.0); LYMPH # 0.9 10^3/uL (1.5-4.5); LYMPH % 24.1 % (24.0-44.0); MEAN CORPUSCULAR HEMOGLOBIN 31.1 pg (27.0-33.0); MEAN CORPUSCULAR HGB CONC 32.1 g/dl (32.0-36.5); MEAN CORPUSCULAR VOLUME 96.9 fl (80.0-96.0); MONO # 0.4 10^3/uL (0.0-0.8); MONO % 10.1 % (0.0-5.0); NEUTROPHILS # 2.3 10^3/uL (1.8-7.7); NEUTROPHILS % 64.1 % (36.0-66.0); PLATELET COUNT, AUTOMATED 104 10^3/uL (150-450); RED BLOOD COUNT 2.57 10^6/uL (4.30-6.10); RED CELL DISTRIBUTION WIDTH 15.9 % (11.5-14.5); WHITE BLOOD COUNT 3.6 10^3/uL (4.0-10.0)
[2018-02-22 19:36] LABS: ALBUMIN 1.7 GM/DL (3.2-5.2); ALBUMIN/GLOBULIN RATIO 0.46 (1.00-1.93); ALKALINE PHOSPHATASE 83 U/L (45-117); ALT/SGPT 15 U/L (12-78); ANION GAP 4 MEQ/L (8-16); AST/SGOT 18 U/L (7-37); BILIRUBIN,TOTAL 0.3 MG/DL (0.2-1.0); BLOOD UREA NITROGEN 14 MG/DL (7-18); CALCIUM LEVEL 7.4 MG/DL (8.5-10.1); CARBON DIOXIDE LEVEL 29 MEQ/L (21-32); CHLORIDE LEVEL 108 MEQ/L (98-107); CREATININE FOR GFR 0.49 MG/DL (0.70-1.30); GLOMERULAR FILTRATION RATE > 60.0 (>56); GLUCOSE, FASTING 78 MG/DL (70-100); MAGNESIUM LEVEL 1.8 MG/DL (1.8-2.4); PHOSPHORUS LEVEL 3.3 MG/DL (2.5-4.9); SODIUM LEVEL 141 MEQ/L (136-145); TOTAL PROTEIN 5.4 GM/DL (6.4-8.2)
== END ==
LOC: M LAB REF 18:49
DX: E46 Unspecified protein-calorie malnutrition (principal)

== ENCOUNTER → 2018-03-08 | Outpatient (REF) | payer OTHER ==
[2018-03-08 17:27] LABS: BASO % 0.9 % (0.0-1.0); EOS # 0.1 10^3/uL (0.0-0.50); EOS % 1.4 % (0.0-3.0); HEMATOCRIT 26.5 % (42.0-52.0); HEMOGLOBIN 8.4 g/dl (13.5-17.5); IMMATURE GRANULOCYTE % 0.5 % (0-3.0); LYMPH % 22.3 % (24.0-44.0); MEAN CORPUSCULAR HEMOGLOBIN 31.2 pg (27.0-33.0); MEAN CORPUSCULAR HGB CONC 31.7 g/dl (32.0-36.5); MEAN CORPUSCULAR VOLUME 98.5 fl (80.0-96.0); MONO # 0.5 10^3/uL (0.0-0.8); MONO % 10.2 % (0.0-5.0); NEUTROPHILS # 2.9 10^3/uL (1.8-7.7); NEUTROPHILS % 64.7 % (36.0-66.0); PLATELET COUNT, AUTOMATED 194 10^3/uL (150-450); RED BLOOD COUNT 2.69 10^6/uL (4.30-6.10); RED CELL DISTRIBUTION WIDTH 14.7 % (11.5-14.5); WHITE BLOOD COUNT 4.4 10^3/uL (4.0-10.0)
[2018-03-08 17:39] LABS: ALBUMIN 1.9 GM/DL (3.2-5.2); ALBUMIN/GLOBULIN RATIO 0.48 (1.00-1.93); ALKALINE PHOSPHATASE 98 U/L (45-117); ALT/SGPT 30 U/L (12-78); ANION GAP 5 MEQ/L (8-16); AST/SGOT 18 U/L (7-37); BILIRUBIN,TOTAL 0.2 MG/DL (0.2-1.0); BLOOD UREA NITROGEN 14 MG/DL (7-18); CALCIUM LEVEL 6.9 MG/DL (8.5-10.1); CARBON DIOXIDE LEVEL 29 MEQ/L (21-32); CHLORIDE LEVEL 111 MEQ/L (98-107); CREATININE FOR GFR 0.75 MG/DL (0.70-1.30); GLOMERULAR FILTRATION RATE > 60.0 (>56); GLUCOSE, FASTING 68 MG/DL (70-100); PHOSPHORUS LEVEL 3.5 MG/DL (2.5-4.9); POTASSIUM SERUM 4.3 MEQ/L (3.5-5.1); SODIUM LEVEL 145 MEQ/L (136-145); TOTAL PROTEIN 5.9 GM/DL (6.4-8.2); TRIGLYCERIDES LEVEL 38 MG/DL (<150)
== END ==
LOC: M LAB REF 17:01
DX: E46 Unspecified protein-calorie malnutrition (principal)
CPT/HCPCS: 83735

== ENCOUNTER → 2018-03-15 | Outpatient (REF) | payer OTHER ==
[2018-03-15 19:00] LABS: BASO % 0.5 % (0.0-1.0); HEMATOCRIT 25.7 % (42.0-52.0); HEMOGLOBIN 8.2 g/dl (13.5-17.5); IMMATURE GRANULOCYTE % 0.3 % (0-3.0); LYMPH # 0.8 10^3/uL (1.5-4.5); LYMPH % 21.5 % (24.0-44.0); MEAN CORPUSCULAR HEMOGLOBIN 31.2 pg (27.0-33.0); MEAN CORPUSCULAR HGB CONC 31.9 g/dl (32.0-36.5); MEAN CORPUSCULAR VOLUME 97.7 fl (80.0-96.0); MONO # 0.4 10^3/uL (0.0-0.8); NEUTROPHILS # 2.5 10^3/uL (1.8-7.7); NEUTROPHILS % 66.7 % (36.0-66.0); PLATELET COUNT, AUTOMATED 166 10^3/uL (150-450); RED BLOOD COUNT 2.63 10^6/uL (4.30-6.10); RED CELL DISTRIBUTION WIDTH 13.9 % (11.5-14.5); WHITE BLOOD COUNT 3.8 10^3/uL (4.0-10.0)
[2018-03-15 19:28] LABS: ALBUMIN 1.9 GM/DL (3.2-5.2); ALBUMIN/GLOBULIN RATIO 0.51 (1.00-1.93); ALKALINE PHOSPHATASE 87 U/L (45-117); ALT/SGPT 25 U/L (12-78); ANION GAP 4 MEQ/L (8-16); AST/SGOT 20 U/L (7-37); BILIRUBIN,TOTAL 0.2 MG/DL (0.2-1.0); BLOOD UREA NITROGEN 10 MG/DL (7-18); CALCIUM LEVEL 7.2 MG/DL (8.5-10.1); CARBON DIOXIDE LEVEL 28 MEQ/L (21-32); CHLORIDE LEVEL 110 MEQ/L (98-107); CREATININE FOR GFR 0.74 MG/DL (0.70-1.30); GLOMERULAR FILTRATION RATE > 60.0 (>56); GLUCOSE, FASTING 94 MG/DL (70-100); MAGNESIUM LEVEL 2.2 MG/DL (1.8-2.4); PHOSPHORUS LEVEL 3.5 MG/DL (2.5-4.9); POTASSIUM SERUM 4.6 MEQ/L (3.5-5.1); SODIUM LEVEL 142 MEQ/L (136-145); TOTAL PROTEIN 5.6 GM/DL (6.4-8.2)
== END ==
LOC: M LAB REF 17:44
DX: E46 Unspecified protein-calorie malnutrition (principal)

== ENCOUNTER → 2018-03-22 | Outpatient (REF) | payer OTHER ==
[2018-03-22 17:25] LABS: BASO % 0.6 % (0.0-1.0); EOS # 0.1 10^3/uL (0.0-0.50); EOS % 1.4 % (0.0-3.0); HEMOGLOBIN 8.9 g/dl (13.5-17.5); IMMATURE GRANULOCYTE % 0.4 % (0-3.0); LYMPH # 1.3 10^3/uL (1.5-4.5); LYMPH % 26.1 % (24.0-44.0); MEAN CORPUSCULAR HEMOGLOBIN 30.7 pg (27.0-33.0); MEAN CORPUSCULAR VOLUME 93.1 fl (80.0-96.0); MONO # 0.4 10^3/uL (0.0-0.8); MONO % 8.7 % (0.0-5.0); NEUTROPHILS # 3.1 10^3/uL (1.8-7.7); NEUTROPHILS % 62.8 % (36.0-66.0); PLATELET COUNT, AUTOMATED 181 10^3/uL (150-450); RED CELL DISTRIBUTION WIDTH 13.4 % (11.5-14.5)
[2018-03-22 18:02] LABS: ALBUMIN/GLOBULIN RATIO 0.49 (1.00-1.93); ALKALINE PHOSPHATASE 129 U/L (45-117); ALT/SGPT 51 U/L (12-78); ANION GAP 7 MEQ/L (8-16); AST/SGOT 60 U/L (7-37); BILIRUBIN,TOTAL 0.2 MG/DL (0.2-1.0); BLOOD UREA NITROGEN 8 MG/DL (7-18); CALCIUM LEVEL 7.4 MG/DL (8.5-10.1); CARBON DIOXIDE LEVEL 26 MEQ/L (21-32); CHLORIDE LEVEL 107 MEQ/L (98-107); CREATININE FOR GFR 0.77 MG/DL (0.70-1.30); GLOMERULAR FILTRATION RATE > 60.0 (>56); GLUCOSE, FASTING 93 MG/DL (70-100); MAGNESIUM LEVEL 1.8 MG/DL (1.8-2.4); PHOSPHORUS LEVEL 2.9 MG/DL (2.5-4.9); POTASSIUM SERUM 4.2 MEQ/L (3.5-5.1); SODIUM LEVEL 140 MEQ/L (136-145); TOTAL PROTEIN 6.1 GM/DL (6.4-8.2)
== END ==
LOC: M LAB REF 16:47
DX: E46 Unspecified protein-calorie malnutrition (principal)

== ENCOUNTER 2018-03-23 14:56 | Emergency (ER) | payer OTHER ==
[2018-03-23 18:12] LABS: BASO % 0.6 % (0.0-1.0); EOS # 0.1 10^3/uL (0.0-0.50); HEMATOCRIT 30.9 % (42.0-52.0); HEMOGLOBIN 9.7 g/dl (13.5-17.5); IMMATURE GRANULOCYTE % 0.2 % (0-3.0); LYMPH # 1.3 10^3/uL (1.5-4.5); LYMPH % 25.1 % (24.0-44.0); MEAN CORPUSCULAR HEMOGLOBIN 30.5 pg (27.0-33.0); MEAN CORPUSCULAR HGB CONC 31.4 g/dl (32.0-36.5); MEAN CORPUSCULAR VOLUME 97.2 fl (80.0-96.0); MONO # 0.5 10^3/uL (0.0-0.8); MONO % 9.3 % (0.0-5.0); NEUTROPHILS # 3.2 10^3/uL (1.8-7.7); NEUTROPHILS % 63.8 % (36.0-66.0); PLATELET COUNT, AUTOMATED 197 10^3/uL (150-450); RED BLOOD COUNT 3.18 10^6/uL (4.30-6.10); RED CELL DISTRIBUTION WIDTH 13.5 % (11.5-14.5); WHITE BLOOD COUNT 5.1 10^3/uL (4.0-10.0)
[2018-03-23] MEDS ORDERED: SODIUM CHLORIDE 0.9% INJ 10 ML SYR IV (18:15)
[2018-03-23 18:21] LABS: INR 1.46; PROTHROMBIN TIME 17.9 SECONDS (12.1-14.4)
[2018-03-23 18:50] LABS: ALBUMIN 2.2 GM/DL (3.2-5.2); ALBUMIN/GLOBULIN RATIO 0.48 (1.00-1.93); ALKALINE PHOSPHATASE 145 U/L (45-117); ALT/SGPT 40 U/L (12-78); ANION GAP 8 MEQ/L (8-16); AST/SGOT 29 U/L (7-37); BILIRUBIN,DIRECT 0.1 MG/DL (0.0-0.2); BILIRUBIN,TOTAL 0.3 MG/DL (0.2-1.0); BLOOD UREA NITROGEN 8 MG/DL (7-18); C REACTIVE PROTEIN QUANTITATIV 1.47 MG/DL (0.00-0.30); CALCIUM LEVEL 7.4 MG/DL (8.5-10.1); CARBON DIOXIDE LEVEL 28 MEQ/L (21-32); CHLORIDE LEVEL 104 MEQ/L (98-107); CREATININE FOR GFR 0.76 MG/DL (0.70-1.30); GLOMERULAR FILTRATION RATE > 60.0 (>56); GLUCOSE, FASTING 79 MG/DL (70-100); POTASSIUM SERUM 4.3 MEQ/L (3.5-5.1); SODIUM LEVEL 140 MEQ/L (136-145); TOTAL PROTEIN 6.8 GM/DL (6.4-8.2)
[2018-03-23] MEDS: MORPHINE 4 MG/ML 1ML VIAL/SYRINGE (J2270) IV (18:59)
[2018-03-23 19:01] LABS: LACTIC ACID SEPSIS PROTOCOL 3.2 MMOL/L (0.4-2.0)
[2018-03-23] MEDS: NS 1,980 ML in APPROPRIATE DILUENT 1 EA IV (19:15)
[2018-03-23 19:23] LABS: ERYTHROCYTE SEDIMENTATION RATE 43 mm/hr (0-20)
[2018-03-23] MEDS: CLINDAMYCIN 300 MG in APPROPRIATE DILUENT 1 EA IV (19:30)
[2018-03-23] MEDS: oxyCODONE 5MG TAB PO (19:42)
[2018-03-23] MEDS: SODIUM CHLORIDE 0.9% INJ 10 ML SYR IV (20:23)
== END 2018-03-23 20:30 | disposition home or self-care (01) ==
LOC: M ED 14:56
DX: L03.115 Cellulitis of right lower limb (principal); R60.0 Localized edema; Z86.718 Personal history of other venous thrombosis and embolism; I10 Essential (primary) hypertension; E78.5 Hyperlipidemia, unspecified; K21.9 Gastro-esophageal reflux disease without esophagitis; F41.9 Anxiety disorder, unspecified; F32.9 Major depressive disorder, single episode, unspecified; I25.2 Old myocardial infarction; R51 Headache; F17.210 Nicotine dependence, cigarettes, uncomplicated; Z98.84 Bariatric surgery status; Z79.899 Other long term (current) drug therapy; Z79.01 Long term (current) use of anticoagulants; Z79.82 Long term (current) use of aspirin
CPT/HCPCS: J2270

== ENCOUNTER 2018-03-29 19:26 | Emergency (ER) | payer OTHER ==
[2018-03-29 20:17] LABS: BASO % 0.4 % (0.0-1.0); EOS # 0.1 10^3/uL (0.0-0.50); EOS % 1.5 % (0.0-3.0); HEMATOCRIT 26.9 % (42.0-52.0); HEMOGLOBIN 8.8 g/dl (13.5-17.5); IMMATURE GRANULOCYTE % 0.2 % (0-3.0); LYMPH # 1.2 10^3/uL (1.5-4.5); LYMPH % 22.8 % (24.0-44.0); MEAN CORPUSCULAR HGB CONC 32.7 g/dl (32.0-36.5); MEAN CORPUSCULAR VOLUME 91.8 fl (80.0-96.0); MONO # 0.6 10^3/uL (0.0-0.8); MONO % 11.7 % (0.0-5.0); NEUTROPHILS # 3.3 10^3/uL (1.8-7.7); NEUTROPHILS % 63.4 % (36.0-66.0); PLATELET COUNT, AUTOMATED 198 10^3/uL (150-450); RED BLOOD COUNT 2.93 10^6/uL (4.30-6.10); RED CELL DISTRIBUTION WIDTH 13.4 % (11.5-14.5); WHITE BLOOD COUNT 5.2 10^3/uL (4.0-10.0)
[2018-03-29 21:02] LABS: ERYTHROCYTE SEDIMENTATION RATE 44 mm/hr (0-20)
[2018-03-29 21:03] LABS: ANION GAP 3 MEQ/L (8-16); BLOOD UREA NITROGEN 13 MG/DL (7-18); C REACTIVE PROTEIN QUANTITATIV 3.37 MG/DL (0.00-0.30); CALCIUM LEVEL 7.1 MG/DL (8.5-10.1); CARBON DIOXIDE LEVEL 27 MEQ/L (21-32); CHLORIDE LEVEL 111 MEQ/L (98-107); GLOMERULAR FILTRATION RATE > 60.0 (>56); GLUCOSE, FASTING 91 MG/DL (70-100); POTASSIUM SERUM 4.7 MEQ/L (3.5-5.1); SODIUM LEVEL 141 MEQ/L (136-145)
== END 2018-03-29 21:23 | disposition left against medical advice (07) ==
LOC: M ED 21:23
DX: Z53.29 Procedure and treatment not carried out because of patient's decision for other reasons (principal)

== ENCOUNTER → 2018-03-29 | Outpatient (REF) | payer OTHER ==
[2018-03-29 10:37] LABS: BASO % 0.5 % (0.0-1.0); EOS # 0.1 10^3/uL (0.0-0.50); EOS % 1.4 % (0.0-3.0); HEMATOCRIT 27.5 % (42.0-52.0); HEMOGLOBIN 8.9 g/dl (13.5-17.5); IMMATURE GRANULOCYTE % 0.2 % (0-3.0); LYMPH # 0.7 10^3/uL (1.5-4.5); LYMPH % 16.9 % (24.0-44.0); MEAN CORPUSCULAR HEMOGLOBIN 30.6 pg (27.0-33.0); MEAN CORPUSCULAR HGB CONC 32.4 g/dl (32.0-36.5); MEAN CORPUSCULAR VOLUME 94.5 fl (80.0-96.0); MONO # 0.4 10^3/uL (0.0-0.8); MONO % 10.1 % (0.0-5.0); NEUTROPHILS % 70.9 % (36.0-66.0); PLATELET COUNT, AUTOMATED 173 10^3/uL (150-450); RED BLOOD COUNT 2.91 10^6/uL (4.30-6.10); RED CELL DISTRIBUTION WIDTH 13.5 % (11.5-14.5); WHITE BLOOD COUNT 4.3 10^3/uL (4.0-10.0)
[2018-03-29 11:18] LABS: ALBUMIN 1.8 GM/DL (3.2-5.2); ALBUMIN/GLOBULIN RATIO 0.47 (1.00-1.93); ALKALINE PHOSPHATASE 134 U/L (45-117); ALT/SGPT 21 U/L (12-78); ANION GAP 6 MEQ/L (8-16); AST/SGOT 15 U/L (7-37); BILIRUBIN,TOTAL 0.2 MG/DL (0.2-1.0); BLOOD UREA NITROGEN 13 MG/DL (7-18); CARBON DIOXIDE LEVEL 26 MEQ/L (21-32); CHLORIDE LEVEL 111 MEQ/L (98-107); CREATININE FOR GFR 0.74 MG/DL (0.70-1.30); GLOMERULAR FILTRATION RATE > 60.0 (>56); GLUCOSE, FASTING 120 MG/DL (70-100); MAGNESIUM LEVEL 1.9 MG/DL (1.8-2.4); PHOSPHORUS LEVEL 2.7 MG/DL (2.5-4.9); POTASSIUM SERUM 3.9 MEQ/L (3.5-5.1); SODIUM LEVEL 143 MEQ/L (136-145); TOTAL PROTEIN 5.6 GM/DL (6.4-8.2); TRIGLYCERIDES LEVEL 26 MG/DL (<150)
== END ==
LOC: M LAB REF 10:23
DX: E46 Unspecified protein-calorie malnutrition (principal)

== ENCOUNTER 2018-03-30 12:01 | Emergency (ER) | payer OTHER ==
[2018-03-30 13:18] LABS: BASO % 0.5 % (0.0-1.0); EOS % 0.5 % (0.0-3.0); HEMATOCRIT 26.4 % (42.0-52.0); HEMOGLOBIN 8.5 g/dl (13.5-17.5); IMMATURE GRANULOCYTE % 0.5 % (0-3.0); LYMPH # 0.7 10^3/uL (1.5-4.5); LYMPH % 18.2 % (24.0-44.0); MEAN CORPUSCULAR HGB CONC 32.2 g/dl (32.0-36.5); MEAN CORPUSCULAR VOLUME 93.3 fl (80.0-96.0); MONO # 0.4 10^3/uL (0.0-0.8); MONO % 9.2 % (0.0-5.0); NEUTROPHILS # 2.8 10^3/uL (1.8-7.7); NEUTROPHILS % 71.1 % (36.0-66.0); PLATELET COUNT, AUTOMATED 191 10^3/uL (150-450); RED BLOOD COUNT 2.83 10^6/uL (4.30-6.10); RED CELL DISTRIBUTION WIDTH 13.4 % (11.5-14.5); WHITE BLOOD COUNT 3.9 10^3/uL (4.0-10.0)
[2018-03-30] MEDS: oxyCODONE 5MG TAB PO (13:27)
[2018-03-30] MEDS ORDERED: SODIUM CHLORIDE 0.9% INJ 10 ML SYR IV (13:30)
[2018-03-30 13:49] LABS: APPEARANCE, URINE HAZY (CLEAR); BACTERIA, URINE AUTO NEGATIVE (NEGATIVE); BILIRUBIN, URINE AUTO NEGATIVE (NEGATIVE); BLOOD, URINE BLOOD 3+ (NEGATIVE); COLOR, URINE YELLOW (YELLOW); GLUCOSE, URINE (UA) AUTO NEGATIVE (NEGATIVE); KETONE, URINE AUTO NEGATIVE (NEGATIVE); LEUKOCYTE ESTERASE, URINE AUTO NEGATIVE (NEGATIVE); NITRITE, URINE AUTO NEGATIVE (NEGATIVE); PROTEIN, URINE AUTO NEGATIVE (NEGATIVE); RBC, URINE AUTO 61 /HPF (0-3); SPECIFIC GRAVITY URINE AUTO 1.016 (1.002-1.035); SQUAMOUS EPITHELIAL CELL UR AU 0 /HPF (0-6); UROBILINOGEN, URINE AUTO 0.2 mg/dL (0.0-2.0); WBC, URINE AUTO 1 /HPF (0-3)
[2018-03-30 13:50] LABS: ALBUMIN 1.9 GM/DL (3.2-5.2); ALBUMIN/GLOBULIN RATIO 0.53 (1.00-1.93); ALKALINE PHOSPHATASE 122 U/L (45-117); ALT/SGPT 18 U/L (12-78); ANION GAP 7 MEQ/L (8-16); AST/SGOT 16 U/L (7-37); BILIRUBIN,DIRECT < 0.1 MG/DL (0.0-0.2); BILIRUBIN,TOTAL 0.2 MG/DL (0.2-1.0); BLOOD UREA NITROGEN 9 MG/DL (7-18); CALCIUM LEVEL 7.5 MG/DL (8.5-10.1); CARBON DIOXIDE LEVEL 26 MEQ/L (21-32); CHLORIDE LEVEL 111 MEQ/L (98-107); GLOMERULAR FILTRATION RATE > 60.0 (>56); GLUCOSE, FASTING 84 MG/DL (70-100); NT-PRO BNP 361 PG/ML (<125); POTASSIUM SERUM 4.2 MEQ/L (3.5-5.1); SODIUM LEVEL 144 MEQ/L (136-145); TOTAL PROTEIN 5.5 GM/DL (6.4-8.2)
== END 2018-03-30 14:36 | disposition home or self-care (01) ==
LOC: M ED 12:01
DX: R60.9 Edema, unspecified (principal); I87.2 Venous insufficiency (chronic) (peripheral); D59.9 Acquired hemolytic anemia, unspecified; I10 Essential (primary) hypertension; I25.2 Old myocardial infarction; E78.00 Pure hypercholesterolemia, unspecified; R42 Dizziness and giddiness; R51 Headache; K21.9 Gastro-esophageal reflux disease without esophagitis; M54.9 Dorsalgia, unspecified; Z86.718 Personal history of other venous thrombosis and embolism; Z98.84 Bariatric surgery status; Z79.899 Other long term (current) drug therapy; Z79.82 Long term (current) use of aspirin; Z79.01 Long term (current) use of anticoagulants
CPT/HCPCS: 80076

== ENCOUNTER → 2018-04-19 | Outpatient (REF) | payer OTHER ==
[2018-04-19 16:08] LABS: BASO % 0.2 % (0.0-1.0); EOS % 0.2 % (0.0-3.0); HEMATOCRIT 28.1 % (42.0-52.0); HEMOGLOBIN 8.7 g/dl (13.5-17.5); LYMPH # 1.1 10^3/uL (1.5-4.5); LYMPH % 25.5 % (24.0-44.0); MEAN CORPUSCULAR HEMOGLOBIN 28.6 pg (27.0-33.0); MEAN CORPUSCULAR VOLUME 92.4 fl (80.0-96.0); MONO # 0.4 10^3/uL (0.0-0.8); MONO % 10.4 % (0.0-5.0); NEUTROPHILS # 2.7 10^3/uL (1.8-7.7); NEUTROPHILS % 63.7 % (36.0-66.0); PLATELET COUNT, AUTOMATED 143 10^3/uL (150-450); RED BLOOD COUNT 3.04 10^6/uL (4.30-6.10); RED CELL DISTRIBUTION WIDTH 13.7 % (11.5-14.5); WHITE BLOOD COUNT 4.2 10^3/uL (4.0-10.0)
[2018-04-19 16:34] LABS: ALBUMIN 1.8 GM/DL (3.2-5.2); ALBUMIN/GLOBULIN RATIO 0.51 (1.00-1.93); ALKALINE PHOSPHATASE 146 U/L (45-117); ALT/SGPT 28 U/L (12-78); ANION GAP 6 MEQ/L (8-16); AST/SGOT 27 U/L (7-37); BILIRUBIN,TOTAL 0.2 MG/DL (0.2-1.0); BLOOD UREA NITROGEN 9 MG/DL (7-18); CALCIUM LEVEL 6.8 MG/DL (8.5-10.1); CARBON DIOXIDE LEVEL 27 MEQ/L (21-32); CHLORIDE LEVEL 112 MEQ/L (98-107); CREATININE FOR GFR 0.73 MG/DL (0.70-1.30); GLOMERULAR FILTRATION RATE > 60.0 (>56); GLUCOSE, FASTING 115 MG/DL (70-100); MAGNESIUM LEVEL 1.8 MG/DL (1.8-2.4); PHOSPHORUS LEVEL 2.5 MG/DL (2.5-4.9); POTASSIUM SERUM 3.9 MEQ/L (3.5-5.1); SODIUM LEVEL 145 MEQ/L (136-145); TOTAL PROTEIN 5.3 GM/DL (6.4-8.2); TRIGLYCERIDES LEVEL 30 MG/DL (<150)
== END ==
LOC: M LAB REF 15:54
DX: E46 Unspecified protein-calorie malnutrition (principal)

== ENCOUNTER 2018-04-27 16:32 | Emergency (ER) | payer OTHER ==
[2018-04-27] MEDS: ONDANSETRON 4MG/2ML VIAL (J2405) IV (18:13)
[2018-04-27] MEDS: HYDROMORPHONE HCL 0.5 MG/ 0.5 ML SYRINGE (J1170 PER 1) IV ×2 (18:13→19:34)
[2018-04-27] MEDS: NS 1,000 ML IV ×2 (18:13→19:44)
[2018-04-27 18:21] LABS: BEDSIDE GLUCOSE 91 MG/DL (70-105)
[2018-04-27 18:26] LABS: BASO % 0.2 % (0.0-1.0); EOS % 0.4 % (0.0-3.0); HEMATOCRIT 31.9 % (42.0-52.0); HEMOGLOBIN 10.3 g/dl (13.5-17.5); IMMATURE GRANULOCYTE % 0.2 % (0-3.0); LYMPH # 1.1 10^3/uL (1.5-4.5); LYMPH % 24.6 % (24.0-44.0); MEAN CORPUSCULAR HEMOGLOBIN 29.3 pg (27.0-33.0); MEAN CORPUSCULAR HGB CONC 32.3 g/dl (32.0-36.5); MEAN CORPUSCULAR VOLUME 90.6 fl (80.0-96.0); MONO # 0.5 10^3/uL (0.0-0.8); MONO % 11.5 % (0.0-5.0); NEUTROPHILS # 2.9 10^3/uL (1.8-7.7); NEUTROPHILS % 63.1 % (36.0-66.0); PLATELET COUNT, AUTOMATED 127 10^3/uL (150-450); RED BLOOD COUNT 3.52 10^6/uL (4.30-6.10); RED CELL DISTRIBUTION WIDTH 14.4 % (11.5-14.5); WHITE BLOOD COUNT 4.5 10^3/uL (4.0-10.0)
[2018-04-27 18:29] LABS: KETONE, URINE AUTO RFX NEGATIVE (NEGATIVE); LEUKOCYTE ESTERASE UR AUTO RFX NEGATIVE (NEGATIVE); NITRITE, URINE AUTO RFX NEGATIVE (NEGATIVE); RBC, URINE AUTO RFX 20 /HPF (0-3); SPECIFIC GRAVITY UR AUTO RFX 1.015 (1.002-1.035); SQUAM EPITHELIAL CELL UR AURFX 0 /HPF (0-6); WBC, URINE AUTO RFX 2 /HPF (0-3)
[2018-04-27 18:35] LABS: LACTIC ACID SEPSIS PROTOCOL 1.2 MMOL/L (0.4-2.0)
[2018-04-27 18:42] LABS: ALBUMIN 1.7 GM/DL (3.2-5.2); ALBUMIN/GLOBULIN RATIO 0.45 (1.00-1.93); ALKALINE PHOSPHATASE 142 U/L (45-117); ALT/SGPT 18 U/L (12-78); AMYLASE 22 U/L (25-115); ANION GAP 4 MEQ/L (8-16); AST/SGOT 15 U/L (7-37); BILIRUBIN,DIRECT 0.2 MG/DL (0.0-0.2); BILIRUBIN,TOTAL 0.3 MG/DL (0.2-1.0); BLOOD UREA NITROGEN 8 MG/DL (7-18); CALCIUM LEVEL 6.9 MG/DL (8.5-10.1); CARBON DIOXIDE LEVEL 29 MEQ/L (21-32); CHLORIDE LEVEL 110 MEQ/L (98-107); CK-MB VALUE MASS < 1.0 NG/ML (<3.6); CPK CREATINE PHOSPHOKINASE 35 U/L (39-308); CREATININE FOR GFR 0.68 MG/DL (0.70-1.30); GLOMERULAR FILTRATION RATE > 60.0 (>56); GLUCOSE, FASTING 79 MG/DL (70-100); LIPASE 59 U/L (73-393); MB/CK RELATIVE INDEX 2.86 (< OR =4); POTASSIUM SERUM 4.5 MEQ/L (3.5-5.1); SODIUM LEVEL 143 MEQ/L (136-145); TOTAL PROTEIN 5.5 GM/DL (6.4-8.2); TROPONIN I < 0.02 NG/ML (< 0.10)
[2018-04-27] MEDS ORDERED: ISOVUE-370 76% 100ML VIAL (Q9967) As Ordered (18:46)
[2018-04-27 18:48] LABS: INR 1.22; PROTHROMBIN TIME 15.5 SECONDS (12.1-14.4)
[2018-04-27 18:49] LABS: PARTIAL THROMBOPLASTIN TIME 41.6 SECONDS (25.4-37.6)
[2018-04-27] MEDS: METHYLNALTREXONE BROMIDE 12 MG/0.6 ML VIAL (RELISTOR) SC (20:28)
== END 2018-04-27 20:55 | disposition home or self-care (01) ==
LOC: M ED 16:32
DX: G89.29 Other chronic pain (principal); R10.9 Unspecified abdominal pain; K59.03 Drug induced constipation; K63.89 Other specified diseases of intestine; R00.1 Bradycardia, unspecified; N28.1 Cyst of kidney, acquired; N20.0 Calculus of kidney; I25.10 Atherosclerotic heart disease of native coronary artery without angina pectoris; I25.2 Old myocardial infarction; I10 Essential (primary) hypertension; Z86.73 Personal history of transient ischemic attack (TIA), and cerebral infarction without residual deficits; Z86.718 Personal history of other venous thrombosis and embolism; Z98.84 Bariatric surgery status; Z72.0 Tobacco use; Z79.82 Long term (current) use of aspirin; Z79.899 Other long term (current) drug therapy
CPT/HCPCS: J2405

== ENCOUNTER → 2018-04-27 | Outpatient (REF) | payer OTHER ==
[2018-04-27 12:11] LABS: BASO % 0.6 % (0.0-1.0); EOS % 0.4 % (0.0-3.0); HEMATOCRIT 31.4 % (42.0-52.0); IMMATURE GRANULOCYTE % 0.2 % (0-3.0); LYMPH # 0.9 10^3/uL (1.5-4.5); LYMPH % 19.6 % (24.0-44.0); MEAN CORPUSCULAR HEMOGLOBIN 29.1 pg (27.0-33.0); MEAN CORPUSCULAR HGB CONC 31.8 g/dl (32.0-36.5); MEAN CORPUSCULAR VOLUME 91.3 fl (80.0-96.0); MONO # 0.3 10^3/uL (0.0-0.8); MONO % 5.7 % (0.0-5.0); NEUTROPHILS # 3.5 10^3/uL (1.8-7.7); NEUTROPHILS % 73.5 % (36.0-66.0); PLATELET COUNT, AUTOMATED 122 10^3/uL (150-450); RED BLOOD COUNT 3.44 10^6/uL (4.30-6.10); RED CELL DISTRIBUTION WIDTH 14.2 % (11.5-14.5); WHITE BLOOD COUNT 4.7 10^3/uL (4.0-10.0)
[2018-04-27 12:17] LABS: ALBUMIN 1.7 GM/DL (3.2-5.2); ALBUMIN/GLOBULIN RATIO 0.46 (1.00-1.93); ALKALINE PHOSPHATASE 146 U/L (45-117); ALT/SGPT 17 U/L (12-78); ANION GAP 6 MEQ/L (8-16); AST/SGOT 14 U/L (7-37); BILIRUBIN,TOTAL 0.3 MG/DL (0.2-1.0); BLOOD UREA NITROGEN 8 MG/DL (7-18); CALCIUM LEVEL 6.7 MG/DL (8.5-10.1); CARBON DIOXIDE LEVEL 27 MEQ/L (21-32); CHLORIDE LEVEL 110 MEQ/L (98-107); CREATININE FOR GFR 0.78 MG/DL (0.70-1.30); GLOMERULAR FILTRATION RATE > 60.0 (>56); GLUCOSE, FASTING 139 MG/DL (70-100); MAGNESIUM LEVEL 1.8 MG/DL (1.8-2.4); PHOSPHORUS LEVEL 3.1 MG/DL (2.5-4.9); SODIUM LEVEL 143 MEQ/L (136-145); TOTAL PROTEIN 5.4 GM/DL (6.4-8.2)
== END ==
LOC: M LAB REF 11:37
DX: E46 Unspecified protein-calorie malnutrition (principal)
CPT/HCPCS: 83735

== ENCOUNTER → 2018-05-04 | Outpatient (REF) | payer OTHER ==
[2018-05-04 11:36] LABS: BASO % 0.6 % (0.0-1.0); EOS # 0.1 10^3/uL (0.0-0.50); EOS % 1.1 % (0.0-3.0); HEMATOCRIT 32.2 % (42.0-52.0); HEMOGLOBIN 10.3 g/dl (13.5-17.5); IMMATURE GRANULOCYTE % 0.2 % (0-3.0); LYMPH # 1.2 10^3/uL (1.5-4.5); LYMPH % 24.9 % (24.0-44.0); MEAN CORPUSCULAR HEMOGLOBIN 28.9 pg (27.0-33.0); MEAN CORPUSCULAR VOLUME 90.4 fl (80.0-96.0); MONO # 0.4 10^3/uL (0.0-0.8); MONO % 8.4 % (0.0-5.0); NEUTROPHILS % 64.8 % (36.0-66.0); PLATELET COUNT, AUTOMATED 113 10^3/uL (150-450); RED BLOOD COUNT 3.56 10^6/uL (4.30-6.10); RED CELL DISTRIBUTION WIDTH 14.7 % (11.5-14.5); WHITE BLOOD COUNT 4.6 10^3/uL (4.0-10.0)
[2018-05-04 12:33] LABS: ALBUMIN 1.8 GM/DL (3.2-5.2); ALBUMIN/GLOBULIN RATIO 0.47 (1.00-1.93); ALKALINE PHOSPHATASE 142 U/L (45-117); ALT/SGPT 17 U/L (12-78); ANION GAP 8 MEQ/L (8-16); AST/SGOT 17 U/L (7-37); BILIRUBIN,TOTAL 0.2 MG/DL (0.2-1.0); BLOOD UREA NITROGEN 10 MG/DL (7-18); CALCIUM LEVEL 6.9 MG/DL (8.5-10.1); CARBON DIOXIDE LEVEL 24 MEQ/L (21-32); CHLORIDE LEVEL 108 MEQ/L (98-107); CREATININE FOR GFR 0.78 MG/DL (0.70-1.30); GLOMERULAR FILTRATION RATE > 60.0 (>56); GLUCOSE, FASTING 129 MG/DL (70-100); MAGNESIUM LEVEL 1.9 MG/DL (1.8-2.4); PHOSPHORUS LEVEL 3.1 MG/DL (2.5-4.9); POTASSIUM SERUM 3.9 MEQ/L (3.5-5.1); SODIUM LEVEL 140 MEQ/L (136-145); TOTAL PROTEIN 5.6 GM/DL (6.4-8.2)
== END ==
LOC: M LAB REF 11:19
DX: E46 Unspecified protein-calorie malnutrition (principal)

== ENCOUNTER → 2018-05-17 | Outpatient (REF) | payer OTHER ==
[~2018-05-17] MED LIST changes: +CLEO300C2 PO; +DULC10SU2 PR; +FLOM0.4C39 PO; -FLOM5CAP PO; +KLOR20TA42 PO; +LASI40TA9 PO; +METR-201 PO; -METR1TAB66 PO; -MIRT45TA PO; -MIRT45TA3 PO; +MIRT45TA4 PO; +MIRT45TA59 PO; -POTA20TA PO; +XARE15TA PO; +XTAM27CA; -ZOFR20TA PO; +ZOFR4TAB14 PO; +ZOFR4TAB16 PO; -ZOFR4TAB3 PO
[2018-05-17 13:48] LABS: BASO % 0.6 % (0.0-1.0); EOS % 0.4 % (0.0-3.0); HEMATOCRIT 32.3 % (42.0-52.0); HEMOGLOBIN 10.3 g/dl (13.5-17.5); LYMPH # 0.8 10^3/uL (1.5-4.5); LYMPH % 16.4 % (24.0-44.0); MEAN CORPUSCULAR HEMOGLOBIN 28.6 pg (27.0-33.0); MEAN CORPUSCULAR HGB CONC 31.9 g/dl (32.0-36.5); MEAN CORPUSCULAR VOLUME 89.7 fl (80.0-96.0); MONO # 0.4 10^3/uL (0.0-0.8); MONO % 8.4 % (0.0-5.0); NEUTROPHILS # 3.4 10^3/uL (1.8-7.7); PLATELET COUNT, AUTOMATED 123 10^3/uL (150-450); WHITE BLOOD COUNT 4.6 10^3/uL (4.0-10.0)
[2018-05-17 14:17] LABS: ALBUMIN 1.7 GM/DL (3.2-5.2); ALT/SGPT 17 U/L (12-78); BILIRUBIN,TOTAL 0.3 MG/DL (0.2-1.0); BLOOD UREA NITROGEN 12 MG/DL (7-18); CARBON DIOXIDE LEVEL 28 MEQ/L (21-32); CHLORIDE LEVEL 110 MEQ/L (98-107); CREATININE FOR GFR 0.87 MG/DL (0.70-1.30); GLOMERULAR FILTRATION RATE > 60.0 (>56); GLUCOSE, FASTING 101 MG/DL (70-100); MAGNESIUM LEVEL 1.9 MG/DL (1.8-2.4); PHOSPHORUS LEVEL 2.8 MG/DL (2.5-4.9); POTASSIUM SERUM 4.2 MEQ/L (3.5-5.1); SODIUM LEVEL 141 MEQ/L (136-145); TOTAL PROTEIN 5.7 GM/DL (6.4-8.2)
== END ==
LOC: M LAB REF 13:24
PROVIDERS: ATTEND Surgery
DX: E46 Unspecified protein-calorie malnutrition (principal)

== ENCOUNTER 2018-05-18 08:52 | Emergency (ER) | payer OTHER ==
[~2018-05-18] VITALS: Ht 180.3 cm; Wt 61.4 kg
[~2018-05-18 08:52] MED LIST changes: +LASI40TA PO; -LASI40TA9 PO; -METR-201 PO; +METR1TAB66 PO
[2018-05-18 09:45] VITALS: BP 129/84
[2018-05-18 10:18] LABS: HEMATOCRIT 32.8 % (42.0-52.0); HEMOGLOBIN 10.6 g/dl (13.5-17.5)
== END 2018-05-18 10:37 | disposition home or self-care (01) ==
LOC: M ED 08:52
DX: R10.9 Unspecified abdominal pain (principal); G89.29 Other chronic pain; K22.2 Esophageal obstruction; Z95.828 Presence of other vascular implants and grafts; Z93.1 Gastrostomy status; F17.210 Nicotine dependence, cigarettes, uncomplicated; Z79.899 Other long term (current) drug therapy; Z79.82 Long term (current) use of aspirin; Z79.891 Long term (current) use of opiate analgesic; Z79.01 Long term (current) use of anticoagulants

== ENCOUNTER → 2018-08-26 | Outpatient (REF) | payer OTHER ==
[~2018-08-26] MED LIST changes: -/PANT40TA PO; -ASPI81CH32 PO; +ASPI81CH33 PO; -LASI40TA PO; +LASI40TA9 PO; +METR-265 PO; -METR1TAB66 PO; +MIRT1TAB17 PO; -MIRT45TA59 PO; +OXYC-517 PO; -OXYCO5TA PO; -VANC125C2 PO; +VANC125C3 PO; -VANC250C2 PO; +VANC250C3 PO; +VITA-183 PO; +VITA100018 PO; -VITA1CAP2 PO
[2018-08-26 11:51] LABS: BASO % 0.7 % (0.0-1.0); EOS % 0.7 % (0.0-3.0); HEMATOCRIT 26.4 % (42.0-52.0); HEMOGLOBIN 8.4 g/dl (13.5-17.5); LYMPH % 23.1 % (24.0-44.0); MEAN CORPUSCULAR HEMOGLOBIN 30.5 pg (27.0-33.0); MEAN CORPUSCULAR HGB CONC 31.8 g/dl (32.0-36.5); MONO # 0.4 10^3/uL (0.0-0.8); MONO % 8.8 % (0.0-5.0); NEUTROPHILS # 2.8 10^3/uL (1.8-7.7); NEUTROPHILS % 66.5 % (36.0-66.0); PLATELET COUNT, AUTOMATED 113 10^3/uL (150-450); RED BLOOD COUNT 2.75 10^6/uL (4.30-6.10); WHITE BLOOD COUNT 4.2 10^3/uL (4.0-10.0)
[2018-08-26 12:14] LABS: ALBUMIN 1.5 GM/DL (3.2-5.2); ALT/SGPT 21 U/L (12-78); BILIRUBIN,TOTAL 0.3 MG/DL (0.2-1.0); BLOOD UREA NITROGEN 12 MG/DL (7-18); CALCIUM LEVEL 6.9 MG/DL (8.5-10.1); CARBON DIOXIDE LEVEL 27 MEQ/L (21-32); CHLORIDE LEVEL 111 MEQ/L (98-107); CREATININE FOR GFR 0.44 MG/DL (0.70-1.30); GLOMERULAR FILTRATION RATE > 60.0 (>56); GLUCOSE, FASTING 74 MG/DL (70-100); MAGNESIUM LEVEL 1.8 MG/DL (1.8-2.4); PHOSPHORUS LEVEL 2.9 MG/DL (2.5-4.9); POTASSIUM SERUM 4.5 MEQ/L (3.5-5.1); SODIUM LEVEL 142 MEQ/L (136-145); TOTAL PROTEIN 5.2 GM/DL (6.4-8.2)
[2018-08-29 15:54] LABS: TRIGLYCERIDES LEVEL 65 MG/DL (<150)
== END ==
LOC: M SHH 10:59
PROVIDERS: ATTEND Family Medicine
DX: R10.9 Unspecified abdominal pain (principal)

== ENCOUNTER 2018-08-29 14:38 | Emergency (ER) | payer OTHER ==
[~2018-08-29] VITALS: Ht 180.3 cm; Wt 64.2 kg
[2018-08-29] MEDS ORDERED: oxyCODONE 5MG TAB PO ONE (15:15)
[2018-08-29] MEDS ORDERED: GI COCKTAIL 50ML BTL(HYOSCYAMINE/MAALOX/LIDOCAINE VISCOUS)(1:3:1) PO ONE (15:15)
[2018-08-29 15:44] LABS: BASO % 0.5 % (0.0-1.0); EOS % 0.5 % (0.0-3.0); HEMATOCRIT 28.3 % (42.0-52.0); HEMOGLOBIN 8.8 g/dl (13.5-17.5); LYMPH # 0.8 10^3/uL (1.5-4.5); LYMPH % 20.5 % (24.0-44.0); MEAN CORPUSCULAR HEMOGLOBIN 30.1 pg (27.0-33.0); MEAN CORPUSCULAR HGB CONC 31.1 g/dl (32.0-36.5); MEAN CORPUSCULAR VOLUME 96.9 fl (80.0-96.0); MONO # 0.4 10^3/uL (0.0-0.8); MONO % 11.1 % (0.0-5.0); NEUTROPHILS # 2.6 10^3/uL (1.8-7.7); NEUTROPHILS % 67.4 % (36.0-66.0); PLATELET COUNT, AUTOMATED 186 10^3/uL (150-450); RED BLOOD COUNT 2.92 10^6/uL (4.30-6.10); WHITE BLOOD COUNT 3.9 10^3/uL (4.0-10.0)
[2018-08-29 16:26] LABS: ALBUMIN 1.5 GM/DL (3.2-5.2); ALT/SGPT 21 U/L (12-78); BILIRUBIN,TOTAL 0.3 MG/DL (0.2-1.0); BLOOD UREA NITROGEN 11 MG/DL (7-18); CALCIUM LEVEL 6.8 MG/DL (8.5-10.1); CARBON DIOXIDE LEVEL 26 MEQ/L (21-32); CHLORIDE LEVEL 111 MEQ/L (98-107); CREATININE FOR GFR 0.59 MG/DL (0.70-1.30); GLOMERULAR FILTRATION RATE > 60.0 (>56); GLUCOSE, FASTING 107 MG/DL (70-100); POTASSIUM SERUM 4.4 MEQ/L (3.5-5.1); SODIUM LEVEL 141 MEQ/L (136-145); TOTAL PROTEIN 5.8 GM/DL (6.4-8.2)
[2018-08-29] MEDS ORDERED: ISOVUE-370 76% 100ML VIAL (Q9967) As Ordered ONE (16:29)
--- NOTE | 2018-08-29 16:53 | REP ---
Clinical: Ecchymosis. Technique: Axial contrast enhanced images from the the mid skull through the thoracic inlet with coronal and sagittal re-formations using 100 ml Isovue 370 intravenous contrast material. Findings: Vascular structures are relatively normal and there is no evidence for obvious laceration, hematoma, or extravasation. Soft tissues including nasopharynx, oropharynx, and hypopharynx to the thoracic inlet appear relatively symmetric and normal. Sided and submandibular glands are normal. The airway and oropharynx are patent and without mass/mass effect or narrowing. The thyroid gland is normal. No significant adenopathy. The osseous structures are intact. The visualized sinuses and mastoid air cells are clear. Impression: Normal contrast enhanced neck CT. Electronically Signed by Esdras Cruz MD 08/29/2018 04:45 P
[2018-08-29 17:06] VITALS: BP 111/67
== END 2018-08-29 17:13 | disposition home or self-care (01) ==
LOC: M ED 14:38
DX: S10.93XA Contusion of unspecified part of neck, initial encounter (principal); X58.XXXA Exposure to other specified factors, initial encounter; Y92.89 Other specified places as the place of occurrence of the external cause; D61.818 Other pancytopenia; I10 Essential (primary) hypertension; E78.00 Pure hypercholesterolemia, unspecified; F33.9 Major depressive disorder, recurrent, unspecified; F41.9 Anxiety disorder, unspecified; Z98.84 Bariatric surgery status; Z79.899 Other long term (current) drug therapy; Z79.82 Long term (current) use of aspirin; Z79.01 Long term (current) use of anticoagulants
CPT/HCPCS: 36415; 70491; 80053; 85025; 87880; 99284; Q9967

== ENCOUNTER → 2018-08-31 | Outpatient (REF) | payer OTHER ==
[2018-08-31 14:02] LABS: BASO % 0.7 % (0.0-1.0); EOS % 1.1 % (0.0-3.0); HEMOGLOBIN 8.2 g/dl (13.5-17.5); LYMPH # 0.9 10^3/uL (1.5-4.5); LYMPH % 31.1 % (24.0-44.0); MEAN CORPUSCULAR HEMOGLOBIN 29.8 pg (27.0-33.0); MEAN CORPUSCULAR HGB CONC 31.5 g/dl (32.0-36.5); MEAN CORPUSCULAR VOLUME 94.5 fl (80.0-96.0); MONO # 0.3 10^3/uL (0.0-0.8); MONO % 8.9 % (0.0-5.0); NEUTROPHILS # 1.6 10^3/uL (1.8-7.7); NEUTROPHILS % 58.2 % (36.0-66.0); PLATELET COUNT, AUTOMATED 209 10^3/uL (150-450); RED BLOOD COUNT 2.75 10^6/uL (4.30-6.10); WHITE BLOOD COUNT 2.8 10^3/uL (4.0-10.0)
[2018-08-31 14:07] LABS: ALBUMIN 1.5 GM/DL (3.2-5.2); ALT/SGPT 25 U/L (12-78); BILIRUBIN,TOTAL 0.3 MG/DL (0.2-1.0); BLOOD UREA NITROGEN 8 MG/DL (7-18); CALCIUM LEVEL 6.9 MG/DL (8.5-10.1); CARBON DIOXIDE LEVEL 26 MEQ/L (21-32); CHLORIDE LEVEL 110 MEQ/L (98-107); CREATININE FOR GFR 0.51 MG/DL (0.70-1.30); GLOMERULAR FILTRATION RATE > 60.0 (>56); GLUCOSE, FASTING 97 MG/DL (70-100); MAGNESIUM LEVEL 1.8 MG/DL (1.8-2.4); PHOSPHORUS LEVEL 3.3 MG/DL (2.5-4.9); POTASSIUM SERUM 3.8 MEQ/L (3.5-5.1); SODIUM LEVEL 140 MEQ/L (136-145); TOTAL PROTEIN 5.3 GM/DL (6.4-8.2)
== END ==
LOC: M SHH 12:41
PROVIDERS: ATTEND Surgery
DX: R10.9 Unspecified abdominal pain (principal)

== ENCOUNTER → 2018-09-08 | Outpatient (REF) | payer OTHER ==
[2018-09-08 14:49] LABS: BASO % 0.6 % (0.0-1.0); EOS # 0.2 10^3/uL (0.0-0.50); EOS % 3.1 % (0.0-3.0); HEMATOCRIT 26.9 % (42.0-52.0); HEMOGLOBIN 8.4 g/dl (13.5-17.5); LYMPH # 1.6 10^3/uL (1.5-4.5); LYMPH % 24.3 % (24.0-44.0); MEAN CORPUSCULAR HGB CONC 31.2 g/dl (32.0-36.5); MEAN CORPUSCULAR VOLUME 96.1 fl (80.0-96.0); MONO # 0.7 10^3/uL (0.0-0.8); MONO % 10.7 % (0.0-5.0); NEUTROPHILS # 3.9 10^3/uL (1.8-7.7); NEUTROPHILS % 61.1 % (36.0-66.0); PLATELET COUNT, AUTOMATED 211 10^3/uL (150-450); WHITE BLOOD COUNT 6.4 10^3/uL (4.0-10.0)
[2018-09-08 15:20] LABS: ALBUMIN 1.7 GM/DL (3.2-5.2); ALT/SGPT 18 U/L (12-78); BILIRUBIN,TOTAL 0.3 MG/DL (0.2-1.0); BLOOD UREA NITROGEN 17 MG/DL (7-18); CALCIUM LEVEL 6.7 MG/DL (8.5-10.1); CARBON DIOXIDE LEVEL 27 MEQ/L (21-32); CHLORIDE LEVEL 110 MEQ/L (98-107); CREATININE FOR GFR 0.59 MG/DL (0.70-1.30); GLOMERULAR FILTRATION RATE > 60.0 (>56); GLUCOSE, FASTING 53 MG/DL (70-100); MAGNESIUM LEVEL 2.2 MG/DL (1.8-2.4); PHOSPHORUS LEVEL 3.1 MG/DL (2.5-4.9); POTASSIUM SERUM 4.8 MEQ/L (3.5-5.1); SODIUM LEVEL 141 MEQ/L (136-145)
== END ==
LOC: M SHH 14:34
DX: E46 Unspecified protein-calorie malnutrition (principal)

== ENCOUNTER → 2018-09-14 | Outpatient (REF) | payer OTHER ==
[2018-09-14 11:27] LABS: BASO % 0.6 % (0.0-1.0); EOS % 1.2 % (0.0-3.0); HEMATOCRIT 27.1 % (42.0-52.0); HEMOGLOBIN 8.7 g/dl (13.5-17.5); LYMPH # 0.9 10^3/uL (1.5-4.5); LYMPH % 26.5 % (24.0-44.0); MEAN CORPUSCULAR HEMOGLOBIN 30.7 pg (27.0-33.0); MEAN CORPUSCULAR HGB CONC 32.1 g/dl (32.0-36.5); MEAN CORPUSCULAR VOLUME 95.8 fl (80.0-96.0); MONO # 0.3 10^3/uL (0.0-0.8); MONO % 9.7 % (0.0-5.0); NEUTROPHILS # 2.1 10^3/uL (1.8-7.7); NEUTROPHILS % 61.7 % (36.0-66.0); PLATELET COUNT, AUTOMATED 191 10^3/uL (150-450); RED BLOOD COUNT 2.83 10^6/uL (4.30-6.10); WHITE BLOOD COUNT 3.4 10^3/uL (4.0-10.0)
[2018-09-14 12:21] LABS: ALBUMIN 1.5 GM/DL (3.2-5.2); ALT/SGPT 19 U/L (12-78); BILIRUBIN,TOTAL 0.3 MG/DL (0.2-1.0); BLOOD UREA NITROGEN 8 MG/DL (7-18); CALCIUM LEVEL 6.6 MG/DL (8.5-10.1); CARBON DIOXIDE LEVEL 24 MEQ/L (21-32); CHLORIDE LEVEL 110 MEQ/L (98-107); CREATININE FOR GFR 0.83 MG/DL (0.70-1.30); GLOMERULAR FILTRATION RATE > 60.0 (>56); GLUCOSE, FASTING 95 MG/DL (70-100); MAGNESIUM LEVEL 1.6 MG/DL (1.8-2.4); PHOSPHORUS LEVEL 2.6 MG/DL (2.5-4.9); POTASSIUM SERUM 3.9 MEQ/L (3.5-5.1); SODIUM LEVEL 141 MEQ/L (136-145); TOTAL PROTEIN 5.8 GM/DL (6.4-8.2)
== END ==
LOC: M SHH 11:20
DX: E46 Unspecified protein-calorie malnutrition (principal)

== ENCOUNTER → 2018-09-22 | Outpatient (REF) | payer OTHER ==
[2018-09-22 17:04] LABS: BASO % 0.4 % (0.0-1.0); EOS # 0.1 10^3/uL (0.0-0.50); EOS % 2.5 % (0.0-3.0); HEMOGLOBIN 9.3 g/dl (13.5-17.5); LYMPH # 1.5 10^3/uL (1.5-4.5); LYMPH % 31.5 % (24.0-44.0); MEAN CORPUSCULAR HEMOGLOBIN 30.5 pg (27.0-33.0); MEAN CORPUSCULAR HGB CONC 32.1 g/dl (32.0-36.5); MEAN CORPUSCULAR VOLUME 95.1 fl (80.0-96.0); MONO # 0.4 10^3/uL (0.0-0.8); MONO % 9.1 % (0.0-5.0); NEUTROPHILS # 2.7 10^3/uL (1.8-7.7); NEUTROPHILS % 56.3 % (36.0-66.0); PLATELET COUNT, AUTOMATED 145 10^3/uL (150-450); RED BLOOD COUNT 3.05 10^6/uL (4.30-6.10); WHITE BLOOD COUNT 4.9 10^3/uL (4.0-10.0)
[2018-09-22 17:08] LABS: ALBUMIN 1.5 GM/DL (3.2-5.2); ALT/SGPT 16 U/L (12-78); BILIRUBIN,TOTAL 0.2 MG/DL (0.2-1.0); BLOOD UREA NITROGEN 8 MG/DL (7-18); CALCIUM LEVEL 6.8 MG/DL (8.5-10.1); CARBON DIOXIDE LEVEL 28 MEQ/L (21-32); CHLORIDE LEVEL 110 MEQ/L (98-107); CREATININE FOR GFR 0.63 MG/DL (0.70-1.30); GLOMERULAR FILTRATION RATE > 60.0 (>56); GLUCOSE, FASTING 70 MG/DL (70-100); MAGNESIUM LEVEL 2.1 MG/DL (1.8-2.4); POTASSIUM SERUM 4.5 MEQ/L (3.5-5.1); SODIUM LEVEL 141 MEQ/L (136-145); TOTAL PROTEIN 5.7 GM/DL (6.4-8.2)
== END ==
LOC: M SHH 16:21
PROVIDERS: ATTEND Surgery
DX: R10.9 Unspecified abdominal pain (principal)

== ENCOUNTER → 2018-09-28 | Outpatient (REF) | payer OTHER ==
[2018-09-28 15:16] LABS: BASO % 0.7 % (0.0-1.0); EOS # 0.1 10^3/uL (0.0-0.50); EOS % 2.3 % (0.0-3.0); HEMATOCRIT 30.1 % (42.0-52.0); HEMOGLOBIN 9.6 g/dl (13.5-17.5); LYMPH # 1.3 10^3/uL (1.5-4.5); MEAN CORPUSCULAR HEMOGLOBIN 30.3 pg (27.0-33.0); MEAN CORPUSCULAR HGB CONC 31.9 g/dl (32.0-36.5); MONO # 0.4 10^3/uL (0.0-0.8); NEUTROPHILS # 2.6 10^3/uL (1.8-7.7); NEUTROPHILS % 59.8 % (36.0-66.0); PLATELET COUNT, AUTOMATED 129 10^3/uL (150-450); RED BLOOD COUNT 3.17 10^6/uL (4.30-6.10); WHITE BLOOD COUNT 4.4 10^3/uL (4.0-10.0)
[2018-09-28 15:42] LABS: ALBUMIN 1.6 GM/DL (3.2-5.2); ALT/SGPT 20 U/L (12-78); BILIRUBIN,TOTAL 0.3 MG/DL (0.2-1.0); BLOOD UREA NITROGEN 11 MG/DL (7-18); CALCIUM LEVEL 6.7 MG/DL (8.5-10.1); CARBON DIOXIDE LEVEL 29 MEQ/L (21-32); CHLORIDE LEVEL 108 MEQ/L (98-107); CREATININE FOR GFR 0.57 MG/DL (0.70-1.30); GLOMERULAR FILTRATION RATE > 60.0 (>56); GLUCOSE, FASTING 54 MG/DL (70-100); PHOSPHORUS LEVEL 3.3 MG/DL (2.5-4.9); POTASSIUM SERUM 4.4 MEQ/L (3.5-5.1); SODIUM LEVEL 138 MEQ/L (136-145); TOTAL PROTEIN 5.5 GM/DL (6.4-8.2)
== END ==
LOC: M SHH 14:24
DX: Z98.84 Bariatric surgery status (principal)

== ENCOUNTER → 2018-10-05 | Outpatient (REF) | payer OTHER ==
[2018-10-05 13:01] LABS: BASO % 0.9 % (0.0-1.0); EOS # 0.1 10^3/uL (0.0-0.50); EOS % 1.7 % (0.0-3.0); HEMATOCRIT 30.9 % (42.0-52.0); HEMOGLOBIN 9.9 g/dl (13.5-17.5); LYMPH # 1.2 10^3/uL (1.5-4.5); LYMPH % 25.4 % (24.0-44.0); MEAN CORPUSCULAR HEMOGLOBIN 29.8 pg (27.0-33.0); MEAN CORPUSCULAR VOLUME 93.1 fl (80.0-96.0); MONO # 0.3 10^3/uL (0.0-0.8); MONO % 6.8 % (0.0-5.0); PLATELET COUNT, AUTOMATED 137 10^3/uL (150-450); RED BLOOD COUNT 3.32 10^6/uL (4.30-6.10); WHITE BLOOD COUNT 4.7 10^3/uL (4.0-10.0)
[2018-10-05 13:36] LABS: ALBUMIN 1.8 GM/DL (3.2-5.2); ALT/SGPT 35 U/L (12-78); BILIRUBIN,TOTAL 0.3 MG/DL (0.2-1.0); BLOOD UREA NITROGEN 11 MG/DL (7-18); CALCIUM LEVEL 7.3 MG/DL (8.5-10.1); CARBON DIOXIDE LEVEL 28 MEQ/L (21-32); CHLORIDE LEVEL 110 MEQ/L (98-107); CREATININE FOR GFR 0.76 MG/DL (0.70-1.30); GLOMERULAR FILTRATION RATE > 60.0 (>56); GLUCOSE, FASTING 66 MG/DL (70-100); PHOSPHORUS LEVEL 3.3 MG/DL (2.5-4.9); POTASSIUM SERUM 4.4 MEQ/L (3.5-5.1); SODIUM LEVEL 141 MEQ/L (136-145); TOTAL PROTEIN 5.8 GM/DL (6.4-8.2)
== END ==
LOC: M SHH 12:34
DX: R10.9 Unspecified abdominal pain (principal)

== ENCOUNTER → 2018-10-19 | Outpatient (REF) | payer OTHER ==
[2018-10-19 12:09] LABS: BASO % 0.5 % (0.0-1.0); EOS % 0.3 % (0.0-3.0); HEMATOCRIT 30.8 % (42.0-52.0); HEMOGLOBIN 10.1 g/dl (13.5-17.5); LYMPH % 25.9 % (24.0-44.0); MEAN CORPUSCULAR HEMOGLOBIN 30.8 pg (27.0-33.0); MEAN CORPUSCULAR HGB CONC 32.8 g/dl (32.0-36.5); MEAN CORPUSCULAR VOLUME 93.9 fl (80.0-96.0); MONO # 0.3 10^3/uL (0.0-0.8); MONO % 8.3 % (0.0-5.0); NEUTROPHILS # 2.4 10^3/uL (1.8-7.7); NEUTROPHILS % 64.7 % (36.0-66.0); PLATELET COUNT, AUTOMATED 115 10^3/uL (150-450); RED BLOOD COUNT 3.28 10^6/uL (4.30-6.10); WHITE BLOOD COUNT 3.7 10^3/uL (4.0-10.0)
[2018-10-19 12:57] LABS: ALBUMIN 1.4 GM/DL (3.2-5.2); ALT/SGPT 24 U/L (12-78); BILIRUBIN,TOTAL 0.4 MG/DL (0.2-1.0); BLOOD UREA NITROGEN 8 MG/DL (7-18); CALCIUM LEVEL 6.8 MG/DL (8.5-10.1); CARBON DIOXIDE LEVEL 25 MEQ/L (21-32); CHLORIDE LEVEL 108 MEQ/L (98-107); CREATININE FOR GFR 0.69 MG/DL (0.70-1.30); GLOMERULAR FILTRATION RATE > 60.0 (>56); GLUCOSE, FASTING 98 MG/DL (70-100); PHOSPHORUS LEVEL 2.7 MG/DL (2.5-4.9); POTASSIUM SERUM 3.8 MEQ/L (3.5-5.1); SODIUM LEVEL 142 MEQ/L (136-145); TOTAL PROTEIN 5.4 GM/DL (6.4-8.2)
== END ==
LOC: M SHH 11:30
PROVIDERS: ATTEND Nurse Practitioner Family
DX: Z98.84 Bariatric surgery status (principal)

== ENCOUNTER → 2018-10-26 | Outpatient (REF) | payer OTHER ==
[2018-10-26 14:19] LABS: BASO % 0.5 % (0.0-1.0); EOS % 0.7 % (0.0-3.0); HEMATOCRIT 30.9 % (42.0-52.0); HEMOGLOBIN 10.3 g/dl (13.5-17.5); LYMPH # 1.2 10^3/uL (1.5-4.5); LYMPH % 28.9 % (24.0-44.0); MEAN CORPUSCULAR HEMOGLOBIN 31.4 pg (27.0-33.0); MEAN CORPUSCULAR HGB CONC 33.3 g/dl (32.0-36.5); MEAN CORPUSCULAR VOLUME 94.2 fl (80.0-96.0); MONO # 0.3 10^3/uL (0.0-0.8); MONO % 6.2 % (0.0-5.0); NEUTROPHILS # 2.6 10^3/uL (1.8-7.7); NEUTROPHILS % 63.5 % (36.0-66.0); PLATELET COUNT, AUTOMATED 108 10^3/uL (150-450); RED BLOOD COUNT 3.28 10^6/uL (4.30-6.10)
[2018-10-26 14:45] LABS: ALBUMIN 1.5 GM/DL (3.2-5.2); ALT/SGPT 29 U/L (12-78); BILIRUBIN,TOTAL 0.2 MG/DL (0.2-1.0); BLOOD UREA NITROGEN 13 MG/DL (7-18); CALCIUM LEVEL 6.7 MG/DL (8.5-10.1); CARBON DIOXIDE LEVEL 28 MEQ/L (21-32); CHLORIDE LEVEL 109 MEQ/L (98-107); GLOMERULAR FILTRATION RATE > 60.0 (>56); GLUCOSE, FASTING 60 MG/DL (70-100); PHOSPHORUS LEVEL 3.1 MG/DL (2.5-4.9); POTASSIUM SERUM 4.4 MEQ/L (3.5-5.1); SODIUM LEVEL 141 MEQ/L (136-145); TOTAL PROTEIN 5.2 GM/DL (6.4-8.2); TRIGLYCERIDES LEVEL 45 MG/DL (<150)
== END ==
LOC: M SHH 13:59
PROVIDERS: ATTEND Nurse Practitioner Family
DX: Z79.899 Other long term (current) drug therapy (principal)

== ENCOUNTER 2018-12-12 13:04 | Emergency (ER) | payer OTHER ==
[~2018-12-12] VITALS: Ht 180.3 cm; Wt 59.1 kg
[~2018-12-12 13:04] MED LIST changes: +CYAN100049 PO; +CYAN500T8 PO; -VITA500T3 PO
[2018-12-12 13:48] LABS: BASO % 0.4 % (0.0-1.0); EOS % 0.4 % (0.0-3.0); HEMATOCRIT 27.9 % (42.0-52.0); HEMOGLOBIN 8.6 g/dl (13.5-17.5); LYMPH % 14.1 % (24.0-44.0); MEAN CORPUSCULAR HEMOGLOBIN 29.1 pg (27.0-33.0); MEAN CORPUSCULAR HGB CONC 30.8 g/dl (32.0-36.5); MEAN CORPUSCULAR VOLUME 94.3 fl (80.0-96.0); MONO # 0.4 10^3/uL (0.0-0.8); MONO % 5.9 % (0.0-5.0); NEUTROPHILS # 5.4 10^3/uL (1.8-7.7); NEUTROPHILS % 78.9 % (36.0-66.0); PLATELET COUNT, AUTOMATED 373 10^3/uL (150-450); RED BLOOD COUNT 2.96 10^6/uL (4.30-6.10); WHITE BLOOD COUNT 6.8 10^3/uL (4.0-10.0)
[2018-12-12 14:19] LABS: ALBUMIN 1.4 GM/DL (3.2-5.2); ALT/SGPT 11 U/L (12-78); BILIRUBIN,DIRECT 0.1 MG/DL (0.0-0.2); BILIRUBIN,TOTAL 0.2 MG/DL (0.2-1.0); BLOOD UREA NITROGEN 6 MG/DL (7-18); CALCIUM LEVEL 7.5 MG/DL (8.5-10.1); CARBON DIOXIDE LEVEL 28 MEQ/L (21-32); CHLORIDE LEVEL 110 MEQ/L (98-107); CREATININE FOR GFR 0.77 MG/DL (0.70-1.30); GLOMERULAR FILTRATION RATE > 60.0 (>56); GLUCOSE, FASTING 85 MG/DL (70-100); LIPASE 119 U/L (73-393); POTASSIUM SERUM 3.8 MEQ/L (3.5-5.1); SODIUM LEVEL 142 MEQ/L (136-145); TOTAL PROTEIN 8.5 GM/DL (6.4-8.2)
[2018-12-12] MEDS ORDERED: NS 1,000 ML IV ONE ×2 (14:30)
[2018-12-12] MEDS ORDERED: MORPHINE 2 MG/ML 1ML SYRINGE (J2270) IV PRN (14:30)
[2018-12-12] MEDS ORDERED: ISOVUE-370 76% 100ML VIAL (Q9967) As Ordered ONE (14:32)
[2018-12-12] MEDS: HYDROMORPHONE HCL 0.5 MG/ 0.5 ML SYRINGE (J1170 PER 1) IV PRN ×2 (15:27→16:30)
[2018-12-12] MEDS ORDERED: HYDROMORPHONE HCL 0.5 MG/ 0.5 ML SYRINGE (J1170 PER 1) IV PRN (18:00)
[2018-12-12] MEDS ORDERED: oxyCODONE 5MG TAB PO ONE (19:15)
[2018-12-12 20:00] VITALS: BP 113/56
--- NOTE | 2018-12-13 07:16 | REP ---
CHEST, SINGLE VIEW: Single view of the chest is performed. There are small bilateral pleural effusions. There is mild bibasilar atelectasis/infiltrate. Heart is not enlarged. Mediastinal silhouette is unremarkable. Electronically Signed by Vidal Jonas MD 12/13/2018 09:13 A
--- NOTE | 2018-12-13 07:31 | REP ---
CT ABDOMEN AND PELVIS WITH IV CONTRAST: TECHNIQUE: Axial contrast enhanced images from the lung bases to the pubic symphysis using 100 mL Isovue 370 intravenous contrast material with multiplanar reformations. There are mild to moderate bilateral fusions with patchy bibasilar atelectasis/infiltrate. Liver is unremarkable. The patient has had a prior cholecystectomy. The spleen, adrenals and pancreas are unremarkable. There is a cyst in upper pole of the right kidney measuring about 2.2 cm which is exophytic. There is a calculus in the lower pole of the right kidney which measures about 1 cm in diameter. There are a couple of small left renal cysts. There is no hydronephrosis bilaterally. There is atherosclerotic calcification of the abdominal aorta without aneurysm. There is no adenopathy. There is no free air. Diffuse mild to moderate dilatation of small and large bowel is noted, dilated with both internal air and fluid, This suggests a diffuse ileus. There is diffuse thickening of small bowel loops. This suggests nonspecific diffuse inflammation and enteritis. There is evidence of prior bowel surgery with multiple sutures seen in the upper abdomen. There is mild scattered free fluid. This is seen throughout the abdomen and pelvis. I see no pelvic mass. There are degenerative changes of the spine. There is an old compression deformity of the L4 vertebral body. There is evidence of prior fusion procedure with metallic hardware at L5-S1. IMPRESSION: Diffuse mild to moderate dilatation of small and large bowel with air and fluid suggesting a diffuse ileus. Diffuse mucosal fold thickening of small bowel is nonspecific probably representing diffuse inflammation and enteritis. There is mild diffuse free fluid in the abdomen and pelvis. No free air. Mild to moderate bilateral pleural effusions with adjacent bibasilar atelectasis/infiltrate. Electronically Signed by Vidal Jonas MD 12/13/2018 09:15 A
== END 2018-12-12 20:19 | disposition short-term general hospital (02) ==
LOC: M ED 13:04
DX: K52.9 Noninfective gastroenteritis and colitis, unspecified (principal); R53.1 Weakness; J90 Pleural effusion, not elsewhere classified; J98.11 Atelectasis; R10.9 Unspecified abdominal pain; M54.9 Dorsalgia, unspecified; G89.29 Other chronic pain; F32.9 Major depressive disorder, single episode, unspecified; Z87.19 Personal history of other diseases of the digestive system; E46 Unspecified protein-calorie malnutrition; Z98.84 Bariatric surgery status; F17.200 Nicotine dependence, unspecified, uncomplicated; Z79.899 Other long term (current) drug therapy; Z79.82 Long term (current) use of aspirin
CPT/HCPCS: 71045; 74177; 80048; 80076; 83690; 85025; 87507; 96361; 96374; 96375; 96376; 99285; J1170; J2270; Q9967

== ENCOUNTER 2018-12-20 10:20 | Emergency (ER) | payer OTHER ==
[~2018-12-20] VITALS: Ht 180.3 cm; Wt 65.2 kg
[~2018-12-20 10:20] MED LIST changes: -MORP-38 PO; +MORP-69 PO
[2018-12-20 11:17] LABS: BASO % 0.4 % (0.0-1.0); EOS % 0.6 % (0.0-3.0); LYMPH # 0.8 10^3/uL (1.5-4.5); LYMPH % 15.2 % (24.0-44.0); MEAN CORPUSCULAR HEMOGLOBIN 29.1 pg (27.0-33.0); MEAN CORPUSCULAR HGB CONC 30.8 g/dl (32.0-36.5); MEAN CORPUSCULAR VOLUME 94.5 fl (80.0-96.0); MONO # 0.4 10^3/uL (0.0-0.8); NEUTROPHILS # 3.9 10^3/uL (1.8-7.7); NEUTROPHILS % 76.4 % (36.0-66.0); PLATELET COUNT, AUTOMATED 215 10^3/uL (150-450); RED BLOOD COUNT 2.75 10^6/uL (4.30-6.10); WHITE BLOOD COUNT 5.1 10^3/uL (4.0-10.0)
[2018-12-20 11:45] LABS: ALBUMIN 1.1 GM/DL (3.2-5.2); ALT/SGPT 8 U/L (12-78); BILIRUBIN,DIRECT < 0.1 MG/DL (0.0-0.2); BILIRUBIN,TOTAL 0.2 MG/DL (0.2-1.0); BLOOD UREA NITROGEN 10 MG/DL (7-18); CALCIUM LEVEL 7.1 MG/DL (8.5-10.1); CARBON DIOXIDE LEVEL 29 MEQ/L (21-32); CHLORIDE LEVEL 110 MEQ/L (98-107); CK-MB VALUE MASS < 1.0 NG/ML (<3.6); CPK CREATINE PHOSPHOKINASE 30 U/L (39-308); GLOMERULAR FILTRATION RATE > 60.0 (>56); GLUCOSE, FASTING 80 MG/DL (70-100); MB/CK RELATIVE INDEX 3.33 (< OR =4); POTASSIUM SERUM 4.3 MEQ/L (3.5-5.1); SODIUM LEVEL 141 MEQ/L (136-145); TOTAL PROTEIN 6.7 GM/DL (6.4-8.2); TROPONIN I < 0.02 NG/ML (< 0.10)
[2018-12-20] MEDS ORDERED: PANTOPRAZOLE 40MG INJ (PROTONIX) (C9113) IV ONE (12:30)
[2018-12-20] MEDS ORDERED: MORPHINE 4 MG/ML 1ML VIAL/SYRINGE (J2270) IV ONE ×2 (12:30→13:15)
[2018-12-20] MEDS ORDERED: ONDANSETRON 4MG/2ML VIAL (J2405) IV ONE (12:30)
[2018-12-20] MEDS ORDERED: NS 1,000 ML IV ONE (12:30)
[2018-12-20] MEDS ORDERED: ISOVUE-370 76% 100ML VIAL (Q9967) As Ordered ONE (12:34)
--- NOTE | 2018-12-20 13:31 | REP ---
Clinical: Acute abdominal pain. Technique: Axial contrast enhanced images from the lung bases to the pubic symphysis using 100 ml Isovue 370 intravenous contrast material with coronal and sagittal re-formations. Comparison: 12/12/2018. Findings: Lung bases demonstrate stable moderate to large pleural effusions with bibasilar atelectasis (right greater than left). Small amount of ascites is again identified along with scattered loops of small bowel demonstrating mural thickening and consistent with enterocolitis. No bowel obstruction is appreciated. No free air to suggest perforation. Evidence for prior areas of bowel resection and reanastomosis again identified. Liver, spleen, pancreas, bilateral adrenal glands and kidneys are relatively normal / stable. Incidental 9 mm nonobstructing right renal calculus again noted. Evidence for prior cholecystectomy and gastric bypass surgery identified. Pelvis demonstrates normal bladder and age appropriate prostate/seminal vesicles. Abdominal aorta and vasculature without aneurysm or dissection. Skeletal structures demonstrate prior partial lumbar laminectomy and posterior fixation. Generalized subcutaneous edema again noted. Impression: 1. Findings to suggest enterocolitis along with small amount of ascites similar to prior examination. No bowel obstruction or perforation identified. No drainable collection/abscess. 2. Moderate/large bilateral pleural effusions and bibasilar atelectasis (right greater than left). 3. Further chronic stable changes as described above. Electronically Signed by Esdras Cruz MD 12/20/2018 01:22 P
[2018-12-20 13:48] LABS: INR 1.25; PROTHROMBIN TIME 15.4 SECONDS (11.8-14.0)
[2018-12-20 14:30] VITALS: BP 124/74
[2018-12-20] MEDS ORDERED: HALOPERIDOL 5 MG/ML VIAL (J1630) IV ONE (14:30)
--- NOTE | 2018-12-27 20:37 | ED PDOC ---
Post-Departure Follow-Up dr goetz faxed formal report of ct abd/p for fu Dorota Steel MD Dec 27, 2018 20:37
== END 2018-12-20 15:15 | disposition home or self-care (01) ==
LOC: M ED 10:20
DX: G89.29 Other chronic pain (principal); R10.9 Unspecified abdominal pain; E46 Unspecified protein-calorie malnutrition; R53.1 Weakness; J90 Pleural effusion, not elsewhere classified; J98.11 Atelectasis; Z87.19 Personal history of other diseases of the digestive system; Z79.82 Long term (current) use of aspirin; Z79.891 Long term (current) use of opiate analgesic; Z79.899 Other long term (current) drug therapy
CPT/HCPCS: 36415; 74177; 80048; 80076; 81001; 82550; 82553; 83605; 84484; 85025; 85610; 86850; 86900; 86901; 87040; 96361; 96374; 96375; 96376; 99285; C9113; J1630; J2270; J2405; Q9967

== ENCOUNTER 2019-01-05 16:07 | Emergency (ER) | payer OTHER ==
[~2019-01-05] VITALS: Ht 180.3 cm; Wt 65.1 kg
[~2019-01-05 16:07] MED LIST changes: -OMEP40CA2 PO; +OMEP40CA97 PO; +SUCR1ORA PO; -SUCR1SUS PO
[2019-01-05] MEDS ORDERED: PROMETHAZINE INJ 25 MG/ML VIAL (J2550) IV ONE (17:30)
[2019-01-05] MEDS ORDERED: NS 1,000 ML IV ONE (17:30)
[2019-01-05] MEDS ORDERED: GI COCKTAIL 50ML BTL(HYOSCYAMINE/MAALOX/LIDOCAINE VISCOUS)(1:3:1) PO ONE (17:30)
[2019-01-05 17:50] LABS: BASO % 0.4 % (0.0-1.0); EOS # 0.1 10^3/uL (0.0-0.50); EOS % 1.9 % (0.0-3.0); HEMATOCRIT 26.3 % (42.0-52.0); HEMOGLOBIN 8.1 g/dl (13.5-17.5); LYMPH # 0.9 10^3/uL (1.5-4.5); MEAN CORPUSCULAR HEMOGLOBIN 29.8 pg (27.0-33.0); MEAN CORPUSCULAR HGB CONC 30.8 g/dl (32.0-36.5); MEAN CORPUSCULAR VOLUME 96.7 fl (80.0-96.0); MONO # 0.4 10^3/uL (0.0-0.8); MONO % 7.4 % (0.0-5.0); NEUTROPHILS # 3.4 10^3/uL (1.8-7.7); NEUTROPHILS % 72.1 % (36.0-66.0); PLATELET COUNT, AUTOMATED 237 10^3/uL (150-450); RED BLOOD COUNT 2.72 10^6/uL (4.30-6.10); WHITE BLOOD COUNT 4.7 10^3/uL (4.0-10.0)
[2019-01-05 18:07] LABS: ALBUMIN 1.5 GM/DL (3.2-5.2); ALT/SGPT 12 U/L (12-78); AMYLASE 25 U/L (25-115); BILIRUBIN,DIRECT 0.1 MG/DL (0.0-0.2); BILIRUBIN,TOTAL 0.1 MG/DL (0.2-1.0); CK-MB VALUE MASS < 1.0 NG/ML (<3.6); CPK CREATINE PHOSPHOKINASE 28 U/L (39-308); LIPASE 61 U/L (73-393); MB/CK RELATIVE INDEX 3.57 (< OR =4); TOTAL PROTEIN 6.6 GM/DL (6.4-8.2); TROPONIN I < 0.02 NG/ML (< 0.10)
--- NOTE | 2019-01-05 18:08 | ECGEPIP ---
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
[2019-01-05 18:10] LABS: INR 1.19; PROTHROMBIN TIME 14.8 SECONDS (11.8-14.0)
[2019-01-05 18:11] LABS: PARTIAL THROMBOPLASTIN TIME 39.5 SECONDS (25.0-38.4)
[2019-01-05] MEDS ORDERED: ISOVUE-370 76% 100ML VIAL (Q9967) As Ordered ONE (18:15)
[2019-01-05] MEDS ORDERED: HYDROMORPHONE HCL 0.5 MG/ 0.5 ML SYRINGE (J1170 PER 1) IV PRN (18:15)
[2019-01-05] MEDS ORDERED: oxyCODONE 5MG TAB PO ONE (18:45)
[2019-01-05] MEDS ORDERED: oxyCODONE 15 MG CR TAB PO ONE (20:00)
[2019-01-05 20:15] VITALS: BP 126/80
[2019-01-05] MEDS ORDERED: oxyCODONE 10 MG CR TAB PO ONE (20:15)
--- NOTE | 2019-01-09 08:12 | REPVR ---
EXAM: CT Angiography Chest With Contrast EXAM DATE/TIME: 01/05/2019 6:31 PM CLINICAL HISTORY: 53 years old, male; Chest pain TECHNIQUE: Imaging protocol: Axial computed tomographic angiography images of the chest with intravenous contrast using CT angiography protocol. Coronal and sagittal reformatted images were created and reviewed. 3D rendering: MIP reconstructed images were created and reviewed. Radiation optimization: All CT scans at this facility use at least one of these dose optimization techniques: automated exposure control; mA and/or kV adjustment per patient size (includes targeted exams where dose is matched to clinical indication); or iterative reconstruction. Contrast material: ISOVUE 370;Contrast volume: 100 ml;Contrast route: IV; COMPARISON: CT ANGIO CHEST 10/31/2017 10:26 AM FINDINGS: Pulmonary arteries: No filling defects seen throughout the pulmonary arteries. The pulmonary trunk is normal in caliber measuring 2.5 cm in diameter. Aorta: The ascending aorta is mildly dilated measuring 4 cm. Lungs: See Pleural Space Finding. Pleural space: Small to moderate bilateral posterior layering pleural effusions seen. There is no focal consolidation. There is no lung mass. Heart: Unremarkable. No cardiomegaly. No pericardial effusion. Lymph nodes: Unremarkable. No enlarged lymph nodes. Bones/joints: Unremarkable. No acute fracture. Soft tissues: Unremarkable. Other findings: Please refer to CT abdomen and pelvis performed at the same time for detailed findings in the upper abdomen. IMPRESSION: 1. No CT evidence of pulmonary embolism or right heart strain. 2. Minimal fusiform aneurysmal dilatation of the ascending aorta measuring 4 cm. 3. Small to moderate bilateral posterior layering pleural effusions with overlying atelectasis. Electronically signed by: Enoc Trammell On 01/09/2019 08:11:34 AM
--- NOTE | 2019-01-09 08:22 | REPVR ---
EXAM: CT Abdomen and Pelvis With Contrast EXAM DATE/TIME: 01/05/2019 6:31 PM CLINICAL HISTORY: 53 years old, male; Abdominal pain TECHNIQUE: Imaging protocol: Axial computed tomography images of the abdomen and pelvis with intravenous contrast. Coronal and sagittal reformatted images were created and reviewed. Radiation optimization: All CT scans at this facility use at least one of these dose optimization techniques: automated exposure control; mA and/or kV adjustment per patient size (includes targeted exams where dose is matched to clinical indication); or iterative reconstruction. Contrast material: ISOVUE 370;Contrast volume: 100 ml;Contrast route: IV; COMPARISON: CT ABD/PEL W/IV CONTRAST ONLY 12/20/2018 12:53 PM FINDINGS: Liver: There is trace perihepatic fluid. Gallbladder and bile ducts: The patient status post cholecystectomy. Pancreas: Normal. No ductal dilation. Spleen: Normal. No splenomegaly. Adrenals: Normal. No mass. Kidneys and ureters: There is 8mm right lower renal pole stone. There is 2.2 cm right renal pole cyst. There is no hydronephrosis. Stomach and bowel: The patient status post gastric bypass there is apparent thickening of numerous small bowel loops. Appendix: No evidence of appendicitis. Intraperitoneal space: Normal. No free air. No significant fluid collection. Vasculature: Normal. No abdominal aortic aneurysm. Lymph nodes: There is diffuse mesenteric haziness and shotty mesenteric lymph nodes. Bladder: The urinary bladder is underdistended limiting its evaluation. Reproductive: Unremarkable as visualized. Bones/joints: The patient is status post L5 laminectomy with surgical fixation of L5 to S1 with grossly intact rods and screws. There is significant L5 S1 facet degenerative changes. There is grade 2 anterolisthesis of L5 on S1. There is diffuse bony osteopenia. There is large L4 superior endplate Schmorl's node. Soft tissues: There is diffuse subcutaneous stranding. IMPRESSION: 1. No CT evidence of traumatic abdominal or pelvic injuries. 2. Status post gastric bypass. Apparent thickened multiple small bowel loops coupled with shotty mesenteric lymph nodes and mesenteric edema suggestive of enteritis. The presence of subcutaneous edema and pleural effusions suggestive spacing. The bowel wall thickening could alternatively be secondary to third spacing. Correlate clinically. 3. Status post cholecystectomy. 4. 8mm right lower renal pole nonobstructing stone. 5. 2.2 cm right upper renal pole stone. Electronically signed by: Enoc Trammell On 01/09/2019 08:22:26 AM
== END 2019-01-05 20:40 | disposition home or self-care (01) ==
LOC: M ED 16:07
DX: R10.12 Left upper quadrant pain (principal); N20.0 Calculus of kidney; G89.29 Other chronic pain; M54.9 Dorsalgia, unspecified; F17.210 Nicotine dependence, cigarettes, uncomplicated; Z86.19 Personal history of other infectious and parasitic diseases; Z86.39 Personal history of other endocrine, nutritional and metabolic disease; Z90.49 Acquired absence of other specified parts of digestive tract; Z98.84 Bariatric surgery status
CPT/HCPCS: 36415; 71275; 74177; 80047; 80076; 82150; 82550; 82553; 83605; 83690; 84484; 85025; 85610; 85730; 87040; 93005; 93041; 96374; 96375; 99285; J1170; Q9967

== ENCOUNTER 2019-01-09 05:51 | Emergency (ER) | payer OTHER ==
[~2019-01-09] VITALS: Ht 180.3 cm; Wt 63.6 kg
[2019-01-09] MEDS ORDERED: MORPHINE 4 MG/ML 1ML VIAL/SYRINGE (J2270) IV ONE (07:15)
[2019-01-09] MEDS ORDERED: ONDANSETRON 4MG/2ML VIAL (J2405) IV ONE (07:15)
[2019-01-09] MEDS ORDERED: NS 1,000 ML IV ONE (07:15)
[2019-01-09 07:25] LABS: BASO % 0.8 % (0.0-1.0); EOS # 0.2 10^3/uL (0.0-0.50); EOS % 2.9 % (0.0-3.0); HEMATOCRIT 28.4 % (42.0-52.0); HEMOGLOBIN 9.1 g/dl (13.5-17.5); LYMPH # 1.1 10^3/uL (1.5-4.5); LYMPH % 21.8 % (24.0-44.0); MEAN CORPUSCULAR HEMOGLOBIN 30.8 pg (27.0-33.0); MEAN CORPUSCULAR VOLUME 96.3 fl (80.0-96.0); MONO # 0.5 10^3/uL (0.0-0.8); NEUTROPHILS # 3.4 10^3/uL (1.8-7.7); NEUTROPHILS % 65.1 % (36.0-66.0); PLATELET COUNT, AUTOMATED 226 10^3/uL (150-450); RED BLOOD COUNT 2.95 10^6/uL (4.30-6.10); WHITE BLOOD COUNT 5.2 10^3/uL (4.0-10.0)
[2019-01-09] MEDS ORDERED: HYDROMORPHONE HCL 0.5 MG/ 0.5 ML SYRINGE (J1170 PER 1) IV ONE (08:30)
[2019-01-09] MEDS: GASTROGRAFIN SOLUTION 30ML PO SCH (08:31)
[2019-01-09 08:39] LABS: ALBUMIN 1.7 GM/DL (3.2-5.2); ALT/SGPT 9 U/L (12-78); AMYLASE 32 U/L (25-115); BILIRUBIN,TOTAL 0.2 MG/DL (0.2-1.0); BLOOD UREA NITROGEN 13 MG/DL (7-18); CALCIUM LEVEL 7.7 MG/DL (8.5-10.1); CARBON DIOXIDE LEVEL 27 MEQ/L (21-32); CHLORIDE LEVEL 108 MEQ/L (98-107); CREATININE FOR GFR 0.59 MG/DL (0.70-1.30); GLOMERULAR FILTRATION RATE > 60.0 (>56); GLUCOSE, FASTING 82 MG/DL (70-100); LIPASE 53 U/L (73-393); POTASSIUM SERUM 4.2 MEQ/L (3.5-5.1); SODIUM LEVEL 140 MEQ/L (136-145); TOTAL PROTEIN 7.1 GM/DL (6.4-8.2)
[2019-01-09] MEDS ORDERED: ISOVUE-370 76% 100ML VIAL (Q9967) As Ordered ONE (08:43)
[2019-01-09] MEDS ORDERED: FLOM0.4C39 PO (10:03)
[2019-01-09] MEDS ORDERED: COLA100C5 PO (10:03)
[2019-01-09] MEDS ORDERED: oxyCODONE 5MG TAB PO ONE (10:15)
[2019-01-09] MEDS ORDERED: TAMSULOSIN 0.4 MG CAP PO ONE (10:15)
[2019-01-09] MEDS ORDERED: DOCUSATE SODIUM 100 MG CAP PO ONE (10:15)
[2019-01-09 10:21] VITALS: BP 132/81
--- NOTE | 2019-01-09 13:23 | REP ---
CT ABDOMEN PELVIS WITHOUT AND WITH IV CONTRAST: 01/09/2019. Clinical history: Left lower quadrant and left flank pain. Technique: Noncontrast CT abdomen pelvis followed by bolus 100 ml Isovue 370 scanning through the abdomen pelvis with coronal and sagittal reconstructions. Comparison 01/05/2019, 12/20/2018. Findings: CT abdomen: There are bilateral effusions present. These have increased since the study 4 days ago. Compressive atelectatic change adjacent. Heart size unchanged. There is no pericardial thickening or effusion. Prior gastric bypass surgery evident. The liver not enlarged. Prior cholecystectomy clips noted. No intrahepatic ductal dilatation. Trace amount of fluid around the liver but not the spleen. No splenic lesion. The common duct in the pancreatic head about 10 mm without a filling defect. Pancreatic duct is 2-3 mm in diameter without pancreatic mass, calcification or peripancreatic adenopathy/fluid. Adrenal glands intact. Kidneys show upper pole cyst on the right, unchanged. There is an 8 millimeter nonobstructing stone in the lower pole of the right kidney. The left kidney shows no stone or mass. There is a small cyst in the medial aspect of the lower pole of the left kidney about 10 mm. No ureteral dilatation or ureteral stone on either side. Aorta is without aneurysm or dissection and has a few calcifications scattered. There is ectasia of the iliac arteries without aneurysm. Small bowel loops are fluid filled with small mesenteric nodes and food infiltrate in the mesentery. This same to slightly increased. Trace fluid in the peroneal gutters. I see no perforation or free air. No definite evidence for colitis or diverticulitis. Moderate retained stool. Status post posterior as lumbar fusion at L5, S1 with pedicle screws and arch bars inferior endplate depression of L4 unchanged. Lumbar levels and the posterior elements were otherwise intact. CT pelvis distally ureters without dilatation or stone. There are a few pelvic phleboliths. Bladder shows no mass or wall thickening. No bladder stone. Distal left colon, sigmoid and rectum with moderate stool but no definite diverticulitis or wall thickening. There is no ventral or inguinal hernia. Small amount of ascites in the lower anterior pelvis about small bowel loops in the mesentery. Subcutaneous tissues show anasarca. There is edema in the subcutaneous fat. Impression: 1. Nonobstructing 9 mm stone lower pole right kidney. Small cyst right kidney. No hydronephrosis, hydroureter or ureteral stone. 2. Some moderate retained stool in the colon throughout the left and rectosigmoid region and elsewhere but without definite wall thickening. I see no diverticulitis. 3. No perforation or free air. 4. Anasarca with subcutaneous edema, mesenteric edema, pleural fluid and mesenteric fluid into the peroneal gutters. 5. Status post L5-S1 posterior lumbar fusion. Hardware and alignment unchanged. Electronically Signed by Garland Ramírez MD 01/09/2019 08:33 P
--- NOTE | 2019-01-09 19:17 | ECGEPIP ---
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
--- NOTE | 2019-01-09 21:35 | ED PDOC ---
Post-Departure Follow-Up dr goetz faxed formal report of ct abd/p for fu Dorota Steel MD Jan 09, 2019 21:35
--- NOTE | 2019-02-02 09:58 | REP ---
CT of the head without contrast, Second interpretation. Note: This study was performed on January 09, 2019 represent for Second interpretation on 02/02/2019. Preliminary interpretation by [facility]. Indication: Trauma. Comparison: None Technique: Axial CT of the head was performed without contrast. Findings: There is no visible soft tissue swelling or calvarial fracture. There is no evidence of acute intracranial hemorrhage or extra-axial fluid collection. There are scattered hypodensities within the periventricular subcortical white matter which are nonspecific but suggestive of microvascular ischemic disease. Note is made of intracranial vascular calcification. There is no mass effect or midline shift. The basal cisterns are patent. There is no hydrocephalus. There is a small mucous retention cyst within the left sphenoid sinus. Remaining visualized paranasal sinuses and mastoid air cells are clear. Impression: No acute intracranial abnormality. White matter changes. Electronically Signed by Marco A Rivera MD 02/02/2019 09:48 A
--- NOTE | 2019-02-02 10:01 | REP ---
CT of the cervical spine without contrast, Second interpretation. Note: This study was performed on January 09, 2019 represent for Second interpretation on 02/02/2019. Preliminary interpretation by [facility]. Indication: Trauma. Comparison: None Technique: Axial CT of the cervical spine was performed without contrast. Bone reformatted images were provided in the axial, coronal and sagittal planes. Findings: There is no acute fracture or subluxation of the cervical spine. Vertebral body heights are maintained. There are multilevel degenerative changes including disc space narrowing and disc osteophyte complex formation, most notably at C4-C5. The CT appearance of the spinal canal is within normal limits. The paraspinal soft tissues are within normal limits. There is no apical pneumothorax. Impression: No acute fracture or subluxation of the cervical spine. Cervical spondylosis. Electronically Signed by Marco A Rivera MD 02/02/2019 09:52 A
== END 2019-01-09 10:32 | disposition home or self-care (01) ==
LOC: M ED 05:51
DX: N28.1 Cyst of kidney, acquired (principal); N20.0 Calculus of kidney; D64.9 Anemia, unspecified; R10.9 Unspecified abdominal pain; K59.00 Constipation, unspecified; M54.2 Cervicalgia; S09.90XA Unspecified injury of head, initial encounter; W19.XXXA Unspecified fall, initial encounter; Y92.009 Unspecified place in unspecified non-institutional (private) residence as the place of occurrence of the external cause; Z98.84 Bariatric surgery status; Z98.1 Arthrodesis status
CPT/HCPCS: 36415; 70450; 72125; 74178; 80053; 81001; 82150; 83690; 85025; 93005; 96374; 96375; 99284; J1170; J2270; J2405; Q9967

== ENCOUNTER 2019-02-16 11:10 | Emergency (ER) | payer OTHER ==
[~2019-02-16] VITALS: Ht 180.3 cm; Wt 74.4 kg
[~2019-02-16 11:10] MED LIST changes: +COLA100C5 PO
[2019-02-16 11:11] VITALS: BP 152/80
[2019-02-16] MEDS ORDERED: oxyCODONE 5MG TAB PO ONE (12:15)
[2019-02-16 12:30] LABS: BASO % 0.5 % (0.0-1.0); EOS # 0.2 10^3/uL (0.0-0.5); HEMATOCRIT 31.4 % (42.0-52.0); HEMOGLOBIN 9.6 g/dl (13.5-17.5); LYMPH # 1.3 10^3/uL (1.5-5.0); LYMPH % 22.1 % (24.0-44.0); MEAN CORPUSCULAR HEMOGLOBIN 29.5 pg (27.0-33.0); MEAN CORPUSCULAR HGB CONC 30.6 g/dl (32.0-36.5); MEAN CORPUSCULAR VOLUME 96.6 fl (80.0-96.0); MONO # 0.6 10^3/uL (0.0-0.8); MONO % 10.5 % (0.0-5.0); NEUTROPHILS # 3.8 10^3/uL (1.5-8.5); NEUTROPHILS % 63.6 % (36.0-66.0); PLATELET COUNT, AUTOMATED 210 10^3/uL (150-450); RED BLOOD COUNT 3.25 10^6/uL (4.30-6.10); WHITE BLOOD COUNT 5.9 10^3/uL (4.0-10.0)
--- NOTE | 2019-02-16 12:53 | REP ---
Left lower extremity Duplex Doppler venous ultrasound: Real time compression and duplex Doppler interrogation of the left lower extremity deep venous system is performed. The left common femoral, superficial femoral and popliteal veins are fully compressible with transducer pressure and demonstrate normal spontaneous and phasic flow, without evidence of deep venous thrombosis. Impression: No evidence of deep venous thrombosis of the left lower extremity femoral popliteal venous system. Electronically Signed by Vidal Jonas MD 02/16/2019 12:44 P
[2019-02-16 12:54] LABS: BLOOD UREA NITROGEN 16 MG/DL (7-18); C REACTIVE PROTEIN QUANTITATIV 0.78 MG/DL (0.00-0.30); CALCIUM LEVEL 8.1 MG/DL (8.5-10.1); CARBON DIOXIDE LEVEL 24 MEQ/L (21-32); CHLORIDE LEVEL 109 MEQ/L (98-107); CREATININE FOR GFR 0.73 MG/DL (0.70-1.30); GLOMERULAR FILTRATION RATE > 60.0 (>56); GLUCOSE, FASTING 86 MG/DL (70-100); POTASSIUM SERUM 4.2 MEQ/L (3.5-5.1); SODIUM LEVEL 142 MEQ/L (136-145); URIC ACID 4.2 MG/DL (3.5-7.2)
[2019-02-16 12:58] LABS: ERYTHROCYTE SEDIMENTATION RATE 71 mm/hr (0-20)
[2019-02-16] MEDS ORDERED: PRED20TA PO (13:11)
--- NOTE | 2019-02-16 13:34 | REP ---
LEFT KNEE SERIES: Five views of the left knee performed. No fracture or dislocation is seen. Joint spaces appear essentially unremarkable. There does appear to be a small joint effusion. IMPRESSION: Small joint effusion without other significant finding. Electronically Signed by Vidal Jonas MD 02/16/2019 03:21 P
== END 2019-02-16 13:20 | disposition home or self-care (01) ==
LOC: M ED 11:10
DX: M25.462 Effusion, left knee (principal); Z98.84 Bariatric surgery status; Z79.82 Long term (current) use of aspirin; Z79.899 Other long term (current) drug therapy; F17.200 Nicotine dependence, unspecified, uncomplicated

== ENCOUNTER 2019-02-18 20:34 | Emergency (ER) | payer OTHER ==
[~2019-02-18] VITALS: Ht 180.3 cm; Wt 72.7 kg
[2019-02-18 20:34] VITALS: BP 145/87
[~2019-02-18 20:34] MED LIST changes: +OMEP40CA2 PO; -OMEP40CA97 PO; +PRED20TA PO; -SUCR1ORA PO; +SUCR1SUS PO
[2019-02-18] MEDS ORDERED: predniSONE 20 MG TAB PO ONE (22:15)
[2019-02-18] MEDS ORDERED: KETOROLAC 60 MG/2 ML VIAL (J1885) IM ONE (22:30)
--- NOTE | 2019-02-19 08:26 | REP ---
LEFT KNEE, COMPLETE: 02/18/2019. Clinical history: Trauma. Knee pain. Comparison: 02/16/2019. Findings: Five views are provided. No narrowing of the medial, lateral or patellofemoral joint spaces. No depressed tibial plateau fracture. There are spurs in the tibial spines and patellar margins representing some mild degenerative change. Question of a small joint effusion is raised but no definite fracture, loose body or osteochondral defect. No avulsion or focal bone lesion. Impression: 1. Mild degenerative changes with question of a small joint effusion, no visible fracture, avulsion, loose body or other significant finding. Stable examination. Electronically Signed by Garland Ramírez MD 02/19/2019 07:30 P
== END 2019-02-18 22:49 | disposition home or self-care (01) ==
LOC: M ED 20:34
DX: M25.562 Pain in left knee (principal); I25.2 Old myocardial infarction; I10 Essential (primary) hypertension; E78.5 Hyperlipidemia, unspecified; K21.9 Gastro-esophageal reflux disease without esophagitis; M54.9 Dorsalgia, unspecified; Z86.718 Personal history of other venous thrombosis and embolism; Z98.84 Bariatric surgery status; Z79.899 Other long term (current) drug therapy
CPT/HCPCS: 73564; 96372; 99284; J1885

== ENCOUNTER 2019-03-06 15:08 | Emergency (ER) | payer OTHER, SELFPAY ==
[~2019-03-06] VITALS: Ht 180.3 cm; Wt 77.9 kg
[2019-03-06 15:08] VITALS: BP 157/92
[~2019-03-06 15:08] MED LIST changes: -OMEP40CA2 PO; +OMEP40CA97 PO
[2019-03-06] MEDS ORDERED: KETOROLAC 60 MG/2 ML VIAL (J1885) IM ONE (18:00)
== END 2019-03-06 17:55 | disposition left against medical advice (07) ==
LOC: M ED 15:08
DX: M25.561 Pain in right knee (principal); M25.562 Pain in left knee; Z98.84 Bariatric surgery status; I25.2 Old myocardial infarction; I10 Essential (primary) hypertension; E78.5 Hyperlipidemia, unspecified; K21.9 Gastro-esophageal reflux disease without esophagitis; M54.9 Dorsalgia, unspecified; Z86.718 Personal history of other venous thrombosis and embolism; Z79.899 Other long term (current) drug therapy; Z79.82 Long term (current) use of aspirin

== ENCOUNTER 2019-03-06 20:57 | Emergency (ER) | payer OTHER, SELFPAY ==
[~2019-03-06] VITALS: Ht 180.3 cm; Wt 77.3 kg
[2019-03-06 22:03] LABS: BASO % 0.4 % (0.0-1.0); EOS # 0.1 10^3/uL (0.0-0.5); EOS % 1.6 % (0.0-3.0); HEMATOCRIT 29.7 % (42.0-52.0); HEMOGLOBIN 9.5 g/dl (13.5-17.5); LYMPH # 1.2 10^3/uL (1.5-5.0); LYMPH % 16.7 % (24.0-44.0); MEAN CORPUSCULAR HEMOGLOBIN 29.6 pg (27.0-33.0); MEAN CORPUSCULAR VOLUME 92.5 fl (80.0-96.0); MONO # 0.8 10^3/uL (0.0-0.8); MONO % 10.1 % (0.0-5.0); NEUTROPHILS # 5.3 10^3/uL (1.5-8.5); NEUTROPHILS % 70.9 % (36.0-66.0); PLATELET COUNT, AUTOMATED 148 10^3/uL (150-450); RED BLOOD COUNT 3.21 10^6/uL (4.30-6.10); WHITE BLOOD COUNT 7.4 10^3/uL (4.0-10.0)
[2019-03-06 22:07] LABS: INR 1.09; PROTHROMBIN TIME 13.8 SECONDS (11.8-14.0)
[2019-03-06 22:08] LABS: PARTIAL THROMBOPLASTIN TIME 46.7 SECONDS (25.0-38.4)
[2019-03-06 22:22] LABS: ALBUMIN 2.6 GM/DL (3.2-5.2); ALT/SGPT 12 U/L (12-78); BILIRUBIN,DIRECT 0.1 MG/DL (0.0-0.2); BILIRUBIN,TOTAL 0.3 MG/DL (0.2-1.0); BLOOD UREA NITROGEN 19 MG/DL (7-18); CALCIUM LEVEL 8.1 MG/DL (8.5-10.1); CARBON DIOXIDE LEVEL 25 MEQ/L (21-32); CHLORIDE LEVEL 111 MEQ/L (98-107); CREATININE FOR GFR 0.66 MG/DL (0.70-1.30); GLOMERULAR FILTRATION RATE > 60.0 (>56); GLUCOSE, FASTING 91 MG/DL (70-100); LIPASE 116 U/L (73-393); POTASSIUM SERUM 3.9 MEQ/L (3.5-5.1); SODIUM LEVEL 143 MEQ/L (136-145); TOTAL PROTEIN 6.8 GM/DL (6.4-8.2)
[2019-03-06] MEDS: GASTROGRAFIN SOLUTION 30ML PO SCH ×2 (22:36→22:50)
[2019-03-06 22:57] LABS: APPEARANCE, URINE CLEAR (CLEAR); BACTERIA, URINE AUTO NEGATIVE (NEGATIVE); BILIRUBIN, URINE AUTO NEGATIVE (NEGATIVE); BLOOD, URINE BLOOD 3+ (NEGATIVE); COLOR, URINE YELLOW (YELLOW); GLUCOSE, URINE (UA) AUTO NEGATIVE (NEGATIVE); KETONE, URINE AUTO NEGATIVE (NEGATIVE); LEUKOCYTE ESTERASE, URINE AUTO NEGATIVE (NEGATIVE); NITRITE, URINE AUTO NEGATIVE (NEGATIVE); PROTEIN, URINE AUTO 2+ mg/dL (NEGATIVE); RBC, URINE AUTO 160 /HPF (0-3); SPECIFIC GRAVITY URINE AUTO 1.015 (1.002-1.035); SQUAMOUS EPITHELIAL CELL UR AU 0 /HPF (0-6); UROBILINOGEN, URINE AUTO 0.2 mg/dL (0.0-2.0); WBC, URINE AUTO 2 /HPF (0-3)
[2019-03-06] MEDS ORDERED: KETOROLAC 30 MG/ML VIAL (J1885) IV ONE (23:30)
[2019-03-06] MEDS ORDERED: ISOVUE-370 76% 100ML VIAL (Q9967) As Ordered ONE (23:53)
[2019-03-07] MEDS ORDERED: MORPHINE 2 MG/ML 1ML VIAL (J2270) IV ONE (00:30)
[2019-03-07 02:46] VITALS: BP 159/93
--- NOTE | 2019-03-07 07:46 | REP ---
Duplex extremity venous ultrasound: Bilateral lower extremities. Repeat dictation. History: Lower leg pain. Rule out DVT. Preliminary report is provided at the time of exam by [facility]. Findings: The deep veins are anechoic and fully compressible from the groin to the popliteal fossa in the left and right lower extremity. Color flow imaging is homogeneous. Spectral Doppler interrogation demonstrates intact respiratory variation in flow and normal manual augmentation of flow. There is no evidence of deep vein thrombosis. Impression: Negative bilateral lower extremity duplex venous ultrasound. No evidence of deep vein thrombosis. Electronically Signed by Steven Fontaine MD 03/07/2019 07:37 A
--- NOTE | 2019-03-07 08:00 | REP ---
REPEAT DICTATION CT ABDOMEN AND PELVIS WITH IV AND ORAL CONTRAST: HISTORY: Abdominal pain. History of gastric bypass and colostomy. Preliminary report is provided by the [facility] at the time of exam. CT CONTRAST DOSE: 100 mL of intravenous Isovue 370. 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 There are a few loops of air-filled small bowel in the central abdomen. There is linear discoid atelectasis in the left lower lobe. There is a somewhat nodular opacity in the right posterior pleural angle on today's lung window settings. This measures 12 mm. It was not present April 27, 2018 and is probably subsegmental atelectasis as well. No pleural effusion is visible today which is an improvement from several recent prior studies including the most recent exam which was January 09, 2019. The liver and spleen are normal in size without evidence of mass. Gallbladder is surgically absent. The patient is status post gastric bypass procedure. No abnormalities noted in the pancreas. No adrenal lesion is seen on either side. There is a cyst in the upper pole of the right kidney, which measures 0.2 cm in greatest diameter. There is a smaller cyst in the lower pole left kidney. There is an intrarenal calculus at the lower pole of the right kidney which measures 10 mm in greatest diameter. No hydronephrosis is seen. There is some vascular calcification. Normal caliber aorta. No obstructive gastrointestinal lesion is seen. Seminal vesicles, urinary bladder and prostate are intact. The prostate is somewhat enlarged. The patient is status post laminectomy and fusion at the lumbosacral junction. No acute bony abnormality is seen. IMPRESSION: Intrarenal nephrolithiasis right kidney without hydronephrosis unchanged. There is no longer evidence of ascites or pleural effusion when compared to the January 09, 2019 study. No acute intra-abdominal abnormality. Post cholecystectomy and gastric bypass procedure. Bibasilar plate-like atelectasis. 12 mm somewhat nodular opacity right lateral pleural angle. Electronically Signed by Steven Fontaine MD 03/07/2019 09:42 A
--- NOTE | 2019-03-09 16:15 | ED PDOC ---
Post-Departure Follow-Up dr goetz faxed formal report of ct abd/p for fu Dorota Steel MD Mar 09, 2019 16:14
== END 2019-03-07 02:54 | disposition short-term general hospital (02) ==
LOC: M ED 21:49
DX: G89.29 Other chronic pain (principal); R10.9 Unspecified abdominal pain; D63.8 Anemia in other chronic diseases classified elsewhere; N20.0 Calculus of kidney; M54.9 Dorsalgia, unspecified; Z98.84 Bariatric surgery status; Z86.718 Personal history of other venous thrombosis and embolism; Z87.19 Personal history of other diseases of the digestive system; Z90.49 Acquired absence of other specified parts of digestive tract; F17.200 Nicotine dependence, unspecified, uncomplicated; Z79.82 Long term (current) use of aspirin; Z79.899 Other long term (current) drug therapy
CPT/HCPCS: 36415; 74177; 80048; 80076; 81001; 83690; 85025; 85610; 85730; 87040; 93970; 96374; 96375; 99284; J1885; J2270; Q9963; Q9967

== ENCOUNTER → 2019-07-29 | Outpatient (CLI) | payer OTHER ==
[~2019-07-29] MED LIST changes: +SUCR1ORA PO; -SUCR1SUS PO
--- NOTE | 2019-07-29 13:12 | REP ---
LUMBOSACRAL SPINE SERIES: Five views of the lumbosacral spine are performed and compared to a prior study of 08/24/2017. There is again mild loss of height of L4 which is stable. No acute fracture or malalignment is seen. Posterior fusion metallic fixation is again noted unchanged with a disc spacer at L5-S1. There is mild diffuse spurring. There is no significant disc space narrowing. Metallic clips are seen in the right upper quadrant. IMPRESSION: Stable exam. Electronically Signed by Vidal Jonas MD 08/02/2019 03:44 P
--- NOTE | 2019-07-29 13:13 | REP ---
LEFT HIP, TWO VIEWS: Two views of the left hip performed. No acute fracture or dislocation is seen. Mild joint space narrowing, subchondral sclerosis, and spurring at the hip joint. IMPRESSION: Mild degenerative changes. Electronically Signed by Vidal Jonas MD 08/02/2019 03:45 P
== END ==
LOC: M RAD 10:43
PROVIDERS: ATTEND Family Medicine
DX: M16.12 Unilateral primary osteoarthritis, left hip (principal); M54.16 Radiculopathy, lumbar region

== ENCOUNTER 2020-01-24 10:42 | Emergency (ER) | payer OTHER ==
[~2020-01-24] VITALS: Ht 180.3 cm; Wt 99.5 kg
[~2020-01-24 10:42] MED LIST changes: -TAB-TAB PO; +TAB-TAB2 PO; -XTAM27CA; +XTAM27CA PO; -ZINC50TA2 PO; +ZINC50TA34 PO
[2020-01-24] MEDS ORDERED: MORPHINE 4 MG/ML 1ML VIAL/SYRINGE (J2270) IV ONE (11:00)
[2020-01-24] MEDS ORDERED: BOOSTRIX/ADACEL VACCINE (DIPHTH/PERTUSS/ACELL/TETANUS) 0.5ML SYR IM ONE (11:00)
[2020-01-24] MEDS ORDERED: ONDANSETRON 4MG/2ML VIAL IV ONE (11:00)
[2020-01-24] MEDS ORDERED: MORPHINE 2 MG/ML 1ML VIAL (J2270) IV PRN (11:00)
[2020-01-24 11:15] LABS: BASO % 0.5 % (0.0-1.0); EOS # 0.1 10^3/uL (0.0-0.5); EOS % 2.1 % (0.0-3.0); HEMATOCRIT 36.8 % (42.0-52.0); HEMOGLOBIN 12.3 g/dl (13.5-17.5); LYMPH # 1.4 10^3/uL (1.5-5.0); LYMPH % 22.9 % (24.0-44.0); MEAN CORPUSCULAR HEMOGLOBIN 30.3 pg (27.0-33.0); MEAN CORPUSCULAR HGB CONC 33.4 g/dl (32.0-36.5); MEAN CORPUSCULAR VOLUME 90.6 fl (80.0-96.0); MONO # 0.5 10^3/uL (0.0-0.8); MONO % 8.2 % (0.0-5.0); PLATELET COUNT, AUTOMATED 159 10^3/uL (150-450); RED BLOOD COUNT 4.06 10^6/uL (4.30-6.10); WHITE BLOOD COUNT 6.1 10^3/uL (4.0-10.0)
[2020-01-24] MEDS ORDERED: ISOVUE-370 76% 100ML VIAL As Ordered ONE (11:23)
[2020-01-24 11:50] LABS: ALBUMIN 3.5 GM/DL (3.2-5.2); ALT/SGPT 15 U/L (12-78); AMYLASE 29 U/L (25-115); BILIRUBIN,DIRECT 0.2 MG/DL (0.0-0.2); BILIRUBIN,TOTAL 0.6 MG/DL (0.2-1.0); ETHYL ALCOHOL (ETHANOL) < 0.003 % (0.000-0.010); LIPASE 44 U/L (73-393); TOTAL PROTEIN 7.6 GM/DL (6.4-8.2)
[2020-01-24 12:03] LABS: INR 1.03; PROTHROMBIN TIME 13.7 SECONDS (11.8-14.0)
[2020-01-24 12:04] LABS: PARTIAL THROMBOPLASTIN TIME 42.7 SECONDS (25.0-38.4)
[2020-01-24 13:00] VITALS: BP 180/94
[2020-01-24] MEDS ORDERED: ACETAMINOPHEN 500 MG TAB PO ONE (13:00)
[2020-01-24 13:24] LABS: AMPHETAMINES LEVEL URINE NEGATIVE (NEGATIVE); BARBITURATES URINE NEGATIVE (NEGATIVE); BENZODIAZEPINES URINE NEGATIVE (NEGATIVE); CANNABINOIDS URINE POSITIVE (NEGATIVE); COCAINE METABOLITE URINE NEGATIVE (NEGATIVE); METHADONE URINE NEGATIVE (NEGATIVE); OPIATES URINE POSITIVE (NEGATIVE); PHENCYCLIDINE URINE NEGATIVE (NEGATIVE)
[2020-01-24] MEDS ORDERED: lisinopriL 20 MG TAB PO ONE (13:30)
[2020-01-24] MEDS ORDERED: LISI10TA4 PO (13:36)
[2020-01-24] MEDS ORDERED: LISI-538 PO (13:38)
[2020-01-24 13:48] VITALS: BP 180/92
--- NOTE | 2020-02-06 09:20 | ECGEPIP ---
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
--- NOTE | 2020-02-07 10:51 | REP ---
NONCONTRAST HEAD CT: CLINICAL: Trauma. TECHNIQUE: Axial noncontrast images from the skull base to the vertex with coronal reformations. FINDINGS: The ventricles, sulci and cisterns are symmetric. Jonas-white differentiation is maintained. No acute intracranial hemorrhage, mass or mass effect. No extra- axial fluid collection. The calvarium is intact. The paranasal sinuses are within normal limits. IMPRESSION: Negative noncontrast head CT. No evidence for acute intracranial pathology or trauma/injury. MTDD
--- NOTE | 2020-02-07 10:53 | REP ---
CERVICAL SPINE CT: CLINICAL: Trauma. TECHNIQUE: Axial images from the skull base to the thoracic inlet with coronal and sagittal reformations. FINDINGS: Moderate to focal advanced degenerative changes are appreciated primarily involving C4-5. Alignment is maintained. No acute fracture/compression injury or subluxation. The spinal canal is patent. The posterior elements and spinous process are intact. The paravertebral soft tissues are normal. IMPRESSION: Moderate and focal early advanced degenerative spondylosis. No acute fracture/compression injury or subluxation. MTDD
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
== END 2020-01-24 13:57 | disposition home or self-care (01) ==
LOC: EDBD 10:42 → M ED 10:42
DX: S09.90XA Unspecified injury of head, initial encounter (principal); S16.1XXA Strain of muscle, fascia and tendon at neck level, initial encounter; S30.1XXA Contusion of abdominal wall, initial encounter; S80.12XA Contusion of left lower leg, initial encounter; V03.90XA Pedestrian on foot injured in collision with car, pick-up truck or van, unspecified whether traffic or nontraffic accident, initial encounter; Y92.410 Unspecified street and highway as the place of occurrence of the external cause; I10 Essential (primary) hypertension; Z98.84 Bariatric surgery status; Z79.899 Other long term (current) drug therapy; F17.210 Nicotine dependence, cigarettes, uncomplicated
CPT/HCPCS: 36415; 70450; 71045; 71260; 72125; 72170; 73502; 73552; 73590; 74177; 80047; 80076; 80307; 81001; 82150; 83690; 85025; 85610; 85730; 86850; 86900; 86901; 90471; 90715; 93005; 93041; 94760; 96374; 96375; 99291; 99292; G0480; J2270; J2405; Q9967

== ENCOUNTER 2020-02-07 15:02 | Emergency (ER) | payer OTHER ==
[~2020-02-07] VITALS: Ht 180.3 cm; Wt 101.3 kg
[~2020-02-07 15:02] MED LIST changes: +LISI-538 PO; +LISI10TA4 PO
[2020-02-07] MEDS ORDERED: [UNRECOGNIZED DRUG - CODE] (15:23)
[2020-02-07] MEDS ORDERED: KETOROLAC 30 MG/ML 1ML VIAL IV ONE (17:00)
[2020-02-07] MEDS ORDERED: METOCLOPRAMIDE INJ 10MG/2ML VIAL (J2765 PER 1) IV ONE (17:00)
[2020-02-07] MEDS ORDERED: diphenhydrAMINE 50MG/ML VIAL (J1200) IV ONE (17:00)
[2020-02-07] MEDS ORDERED: ACETAMINOPHEN 500 MG TAB PO ONE (17:00)
[2020-02-07] MEDS ORDERED: NS 1,000 ML IV ONE (17:00)
[2020-02-07 17:20] LABS: BASO % 0.3 % (0.0-1.0); EOS # 0.1 10^3/uL (0.0-0.5); EOS % 0.5 % (0.0-3.0); HEMATOCRIT 42.3 % (42.0-52.0); HEMOGLOBIN 13.9 g/dl (13.5-17.5); LYMPH # 1.5 10^3/uL (1.5-5.0); LYMPH % 15.7 % (24.0-44.0); MEAN CORPUSCULAR HEMOGLOBIN 30.8 pg (27.0-33.0); MEAN CORPUSCULAR HGB CONC 32.9 g/dl (32.0-36.5); MEAN CORPUSCULAR VOLUME 93.6 fl (80.0-96.0); MONO # 0.6 10^3/uL (0.0-0.8); MONO % 6.4 % (0.0-5.0); NEUTROPHILS # 7.1 10^3/uL (1.5-8.5); NEUTROPHILS % 76.8 % (36.0-66.0); PLATELET COUNT, AUTOMATED 239 10^3/uL (150-450); RED BLOOD COUNT 4.52 10^6/uL (4.30-6.10); WHITE BLOOD COUNT 9.2 10^3/uL (4.0-10.0)
[2020-02-07 17:42] LABS: CREATININE FOR GFR 1.35 MG/DL (0.70-1.30); GLOMERULAR FILTRATION RATE 58.2 (>56); POTASSIUM SERUM 5.4 MEQ/L (3.5-5.1)
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
[2020-02-07] MEDS ORDERED: oxyCODONE 5MG TAB PO ONE (18:45)
[2020-02-07 19:17] LABS: CALCIUM LEVEL 8.7 MG/DL (8.5-10.1); CREATININE FOR GFR 1.36 MG/DL (0.70-1.30); GLOMERULAR FILTRATION RATE 57.7 (>56); POTASSIUM SERUM 4.6 MEQ/L (3.5-5.1)
[2020-02-07 20:53] VITALS: BP 160/91
== END 2020-02-07 21:00 | disposition home or self-care (01) ==
LOC: M ED 15:02
DX: F07.81 Postconcussional syndrome (principal); N17.9 Acute kidney failure, unspecified; I10 Essential (primary) hypertension; E86.0 Dehydration; F17.200 Nicotine dependence, unspecified, uncomplicated; F32.9 Major depressive disorder, single episode, unspecified; F41.9 Anxiety disorder, unspecified; Z79.891 Long term (current) use of opiate analgesic; Z79.899 Other long term (current) drug therapy; Z98.84 Bariatric surgery status
CPT/HCPCS: 36415; 70450; 80048; 85025; 96361; 96374; 99284; J1200; J1885; J2765

== ENCOUNTER 2020-02-09 16:12 | Emergency (ER) | payer OTHER ==
[~2020-02-09] VITALS: Ht 180.3 cm; Wt 100.5 kg
[~2020-02-09 16:12] MED LIST changes: +[UNRECOGNIZED DRUG - CODE]
[2020-02-09] MEDS ORDERED: LISI10TA4 PO (16:39)
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
[2020-02-09] MEDS ORDERED: ACETAMINOPHEN 500 MG TAB PO ONE (17:30)
[2020-02-09] MEDS ORDERED: KETOROLAC 30 MG/ML 1ML VIAL IV ONE (17:30)
[2020-02-09] MEDS ORDERED: NS 1,000 ML IV ONE (17:30)
[2020-02-09] MEDS ORDERED: METOCLOPRAMIDE INJ 10MG/2ML VIAL (J2765 PER 1) IV ONE (17:30)
[2020-02-09] MEDS ORDERED: oxyCODONE 5MG TAB PO ONE (17:30)
[2020-02-09 19:17] VITALS: BP 149/92
== END 2020-02-09 19:30 | disposition home or self-care (01) ==
LOC: M ED 16:12 → EDBD 16:12 → M ED 19:30
DX: S06.0X0A Concussion without loss of consciousness, initial encounter (principal); M79.601 Pain in right arm; V03.90XA Pedestrian on foot injured in collision with car, pick-up truck or van, unspecified whether traffic or nontraffic accident, initial encounter; Y92.410 Unspecified street and highway as the place of occurrence of the external cause; M81.0 Age-related osteoporosis without current pathological fracture; I10 Essential (primary) hypertension; Z98.84 Bariatric surgery status; F17.210 Nicotine dependence, cigarettes, uncomplicated; Z79.899 Other long term (current) drug therapy
CPT/HCPCS: 70450; 71045; 72125; 73080; 80047; 96361; 96374; 96375; 99284; J1885; J2765

== ENCOUNTER 2020-02-21 18:20 | Emergency (ER) | payer OTHER ==
[~2020-02-21] VITALS: Ht 180.3 cm; Wt 102.2 kg
[2020-02-21] MEDS ORDERED: OXYC-1 (18:27)
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
[2020-02-21] MEDS ORDERED: KETOROLAC 30 MG/ML 1ML VIAL IM ONE (20:15)
[2020-02-21] MEDS ORDERED: ACETAMINOPHEN 500 MG TAB PO ONE (20:45)
[2020-02-21] MEDS ORDERED: NS 1,000 ML IV ONE (20:45)
[2020-02-21] MEDS ORDERED: dexameTHASONE 4 MG/ML 1ML VIAL (J1100 PER 1MG) IV ONE (20:45)
[2020-02-21] MEDS ORDERED: diphenhydrAMINE 50MG/ML VIAL (J1200) IV ONE (20:45)
[2020-02-21] MEDS ORDERED: PROMETHAZINE INJ 25 MG/ML VIAL (J2550) IV ONE (20:45)
[2020-02-21] MEDS ORDERED: oxyCODONE 5MG TAB PO ONE (21:30)
[2020-02-21] MEDS ORDERED: HYDROMORPHONE HCL 0.5 MG/ 0.5 ML SYRINGE (J1170 PER 1) IV ONE (22:30)
[2020-02-21 23:59] VITALS: BP 150/83
== END 2020-02-22 00:01 | disposition home or self-care (01) ==
LOC: M ED 18:20
DX: S06.0X0S Concussion without loss of consciousness, sequela (principal); V03.90XA Pedestrian on foot injured in collision with car, pick-up truck or van, unspecified whether traffic or nontraffic accident, initial encounter; Y92.410 Unspecified street and highway as the place of occurrence of the external cause; M25.531 Pain in right wrist; I10 Essential (primary) hypertension; Z98.84 Bariatric surgery status; F17.200 Nicotine dependence, unspecified, uncomplicated; Z79.899 Other long term (current) drug therapy
CPT/HCPCS: 36415; 70450; 73110; 80047; 96361; 96372; 96374; 96375; 99284; J1100; J1200; J1885

== ENCOUNTER 2020-05-19 21:05 | Emergency (ER) | payer BC, OTHER ==
[~2020-05-19] VITALS: Ht 180.3 cm; Wt 102.3 kg
[~2020-05-19 21:05] MED LIST changes: +CYAN500T14 PO; -CYAN500T8 PO; +OXYC-1
[2020-05-19 21:06] VITALS: BP 189/99
--- NOTE | 2020-05-19 22:01 | REPVR ---
PROCEDURE INFORMATION: Exam: XR Right Forearm Exam date and time: 05/19/2020 9:14 PM Age: 55 years old Clinical indication: Pain; Lower or forearm; Right; Additional info: Fell outside TECHNIQUE: Imaging protocol: XR Right forearm. Views: 2 views. COMPARISON: CR Elbow, complete RIGHT 02/09/2020 4:43 PM FINDINGS: Bones/joints: Normal. Soft tissues: Normal. IMPRESSION: No acute findings. Electronically signed by: Nasim Montanez On 05/19/2020 22:01:40 PM
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
== END 2020-05-19 22:46 | disposition home or self-care (01) ==
LOC: M ED 21:05
DX: M25.531 Pain in right wrist (principal); I10 Essential (primary) hypertension; E78.5 Hyperlipidemia, unspecified; G89.29 Other chronic pain; M54.9 Dorsalgia, unspecified; I25.2 Old myocardial infarction; Z98.84 Bariatric surgery status; Z79.899 Other long term (current) drug therapy; F17.210 Nicotine dependence, cigarettes, uncomplicated

== ENCOUNTER 2020-11-22 05:49 | Emergency (ER) | payer BC, OTHER ==
[~2020-11-22] VITALS: Ht 180.3 cm; Wt 95.7 kg
[~2020-11-22 05:49] MED LIST changes: -LISI-538 PO; +LISI10TA22 PO; -LISI10TA4 PO; +LISI20TA33 PO; +OMEP40CA4 PO; -OMEP40CA97 PO
[2020-11-22] MEDS ORDERED: PANT40TA29 (06:03)
[2020-11-22] MEDS ORDERED: OXYC-1 (06:03)
[2020-11-22 06:40] LABS: BASO # 0.1 10^3/uL (0.0-0.2); BASO % 0.7 % (0.0-1.0); EOS # 0.1 10^3/uL (0.0-0.5); HEMOGLOBIN 14.4 g/dl (13.5-17.5); LYMPH # 1.2 10^3/uL (1.5-5.0); LYMPH % 17.6 % (24.0-44.0); MEAN CORPUSCULAR HEMOGLOBIN 30.4 pg (27.0-33.0); MEAN CORPUSCULAR HGB CONC 33.5 g/dl (32.0-36.5); MEAN CORPUSCULAR VOLUME 90.9 fl (80.0-96.0); MONO # 0.5 10^3/uL (0.0-0.8); MONO % 7.4 % (2.0-8.0); NEUTROPHILS # 4.9 10^3/uL (1.5-8.5); PLATELET COUNT, AUTOMATED 179 10^3/uL (150-450); RED BLOOD COUNT 4.73 10^6/uL (4.30-6.10); WHITE BLOOD COUNT 6.9 10^3/uL (4.0-10.0)
[2020-11-22] MEDS ORDERED: DICYCLOMINE 10 MG CAP PO ONE (06:40)
[2020-11-22] MEDS ORDERED: NS 1,000 ML IV ONE (06:40)
[2020-11-22] MEDS ORDERED: MORPHINE 4 MG/ML 1ML VIAL/SYRINGE (J2270) IV ONE ×2 (06:40→10:05)
[2020-11-22] MEDS ORDERED: LIDOCAINE 5% (LIDODERM) PATCH TD ONE (06:50)
[2020-11-22 07:10] LABS: ALBUMIN 3.3 GM/DL (3.2-5.2); ALT/SGPT 11 U/L (12-78); BILIRUBIN,DIRECT 0.1 MG/DL (0.0-0.2); BILIRUBIN,TOTAL 0.8 MG/DL (0.2-1.0); CK-MB VALUE MASS < 1.0 NG/ML (<3.6); CPK CREATINE PHOSPHOKINASE 101 U/L (39-308); ETHYL ALCOHOL (ETHANOL) < 0.003 % (0.000-0.010); LIPASE 44 U/L (73-393); MB/CK RELATIVE INDEX 0.99 (< OR =4); TOTAL PROTEIN 7.1 GM/DL (6.4-8.2); TROPONIN I < 0.02 NG/ML (< 0.10)
[2020-11-22] MEDS ORDERED: oxyCODONE 5MG TAB PO ONE (07:30)
[2020-11-22] MEDS: GASTROGRAFIN SOLUTION 30ML PO SCH ×2 (07:59→08:31)
--- NOTE | 2020-11-22 08:03 | REP ---
INDICATION: right side abd pain COMPARISON: None. TECHNIQUE: Upright view of the chest with supine and upright views of the abdomen and pelvis. FINDINGS: Frontal upright view of the chest demonstrates no acute cardiopulmonary process or free air below diaphragm to suspect pneumoperitoneum. Supine and upright views of the abdomen and pelvis demonstrate small-bowel obstruction with dilated air-filled small bowel and associated air-fluid levels. Postsurgical changes are identified including surgical clips in the right upper quadrant and suture material in the right mid abdomen. 9 mm nonobstructing right renal calculus noted. Evidence for prior lumbosacral spine fixation. IMPRESSION: Small-bowel obstruction. <Electronically signed by Esdras Cruz > 11/22/20 0750
[2020-11-22] MEDS ORDERED: ISOVUE-370 76% 100ML VIAL As Ordered ONE (09:11)
--- NOTE | 2020-11-22 09:55 | REP ---
INDICATION: severe right sided abd pain. History of gastric bypass and ulcer repair, cholecystectomy, colostomy with reversal, lumbar spine fusion. COMPARISON: Comparison CT study is from January 24, 2020.. TECHNIQUE: Helical scanning is acquired following the intravenous injection of 100 mL of Isovue 370. 3 mm axial images are re-formatted. Coronal and sagittal MPR images are included. FINDINGS: Preliminary digital photographic reproduction technician radiograph demonstrates gaseous distention of the mid colon consistent with ileus. On axial CT images, the lung bases are clear. There is no evidence of pleural effusion. There is however mild diffuse abdominal ascites visible. This is a new finding compared with the January 24, [address] study[address] No focal liver lesion is seen. The spleen is homogeneous in texture. No adrenal lesion is observed. No abnormality is noted in the pancreas. There is a cyst in the upper pole right kidney unchanged from January 24, 2020 study. There is an intrarenal calculus in the mid right kidney collecting system nonobstructive. This calculus measures 7 mm in greatest diameter. No hydronephrosis or ureteral calculus is seen. There is a small cyst in the left kidney. No bladder calculus is seen. The prostate is mildly prominent. There is diastasis of the rectus abdominus muscles with a broad ventral hernia. There is a loop of small bowel which appears to protrude from the anterior abdominal wall just to the left of the midline. No gastrointestinal obstructive lesion is seen. The appendix is not identified but there is no CT evidence to suggest appendicitis. No other abdominal wall hernia is seen. There is no evidence of free air or abnormal peritoneal fluid collection. Bone window settings demonstrate diffusion hardware across the L5-S1 level. No bony destructive lesion is seen. IMPRESSION: New finding of mild diffuse abdominal ascites. The broad ventral hernia transmitting small bowel loops. Mild ileus pattern in the bowel gas. Intrarenal nephrolithiasis right kidney without evidence of ureteral obstruction. Small renal cortical cysts. Status post cholecystectomy, gastric bypass. <Electronically signed by Alfonzo Fontaine > 11/22/20 1550
[2020-11-22 10:55] VITALS: BP 178/100
--- NOTE | 2020-11-22 18:01 | ECGEPIP ---
[facility] - ED Test Date: 2020-11-22 Pat Name: GRAHAM COLEMAN Department: Room: - Gender: Male Talent Director: : 1965 Requested By: MIKE Guzman Order Number: [id number] Reading MD: Kathryn Berg Measurements Intervals [place] Rate: 59 P: 33 SD: 168 QRS: -43 QRSD: 102 T: 34 QT: 414 QTc: 409 Interpretive Statements Sinus bradycardia with marked sinus arrhythmia Left axis deviation Electronically Signed on 11-22-2020 18:01:36 EDT by Kathryn Berg
[2020-11-22] MEDS ORDERED: **NOTE PATIENT COMMENT** MISC XX SCH (21:00)
--- NOTE | 2020-11-23 07:54 | ED PDOC ---
Post-Departure Follow-Up dr goetz faxed formal report of ct abd/p for fu Dorota Steel MD Nov 23, 2020 07:54
== END 2020-11-22 10:58 | disposition home or self-care (01) ==
LOC: M ED 05:49
DX: R10.11 Right upper quadrant pain (principal); R10.31 Right lower quadrant pain; R18.8 Other ascites; R00.1 Bradycardia, unspecified; I25.2 Old myocardial infarction; I10 Essential (primary) hypertension; E78.5 Hyperlipidemia, unspecified; M54.5 Low back pain; Z86.718 Personal history of other venous thrombosis and embolism; Z98.84 Bariatric surgery status; F17.200 Nicotine dependence, unspecified, uncomplicated; Z79.899 Other long term (current) drug therapy
CPT/HCPCS: 74021; 74177; 80047; 80076; 82077; 82550; 82553; 83605; 83690; 84484; 85025; 93005; 93041; 99285; J2270; Q9963; Q9967

== ENCOUNTER 2021-12-18 14:29 | Emergency (ER) | payer OTHER, MEDICARE ==
[~2021-12-18] VITALS: Ht 180.3 cm; Wt 91.8 kg
[2021-12-18 14:29] VITALS: BP 163/98
[~2021-12-18 14:29] MED LIST changes: -KLOR20TA42 PO; +PANT40TA29; +POTA-141 PO
[2021-12-18] MEDS ORDERED: XTAM27CA (14:38)
[2021-12-18] MEDS ORDERED: methocarbamoL 750 MG TAB PO ONE (17:05)
[2021-12-18] MEDS ORDERED: oxyCODONE 5MG TAB PO ONE (17:05)
== END 2021-12-18 17:32 | disposition home or self-care (01) ==
LOC: M ED 14:29
DX: S16.1XXA Strain of muscle, fascia and tendon at neck level, initial encounter (principal); W01.0XXA Fall on same level from slipping, tripping and stumbling without subsequent striking against object, initial encounter; Y92.018 Other place in single-family (private) house as the place of occurrence of the external cause; I10 Essential (primary) hypertension; F32.A Depression, unspecified; F41.9 Anxiety disorder, unspecified; K21.9 Gastro-esophageal reflux disease without esophagitis; Z79.899 Other long term (current) drug therapy; Z86.718 Personal history of other venous thrombosis and embolism; Z87.19 Personal history of other diseases of the digestive system; F17.210 Nicotine dependence, cigarettes, uncomplicated

== ENCOUNTER 2022-01-05 00:13 | Emergency (ER) | payer OTHER, MEDICARE ==
[~2022-01-05] VITALS: Ht 180.3 cm; Wt 94.1 kg
[~2022-01-05 00:13] MED LIST changes: +XTAM27CA
[2022-01-05 01:54] VITALS: BP 180/108
[2022-01-05] MEDS ORDERED: LISI20TA33 PO (15:50)
== END 2022-01-05 03:57 | disposition left against medical advice (07) ==
LOC: M ED 00:13
DX: Z53.21 Procedure and treatment not carried out due to patient leaving prior to being seen by health care provider (principal)

== ENCOUNTER 2022-01-05 07:12 | Emergency (ER) | payer OTHER, MEDICARE ==
[~2022-01-05] VITALS: Ht 180.3 cm; Wt 91.1 kg
[2022-01-05 08:48] LABS: BASO % 0.6 % (0.0-1.0); EOS % 0.6 % (0.0-3.0); HEMATOCRIT 45.6 % (42.0-52.0); HEMOGLOBIN 15.3 g/dl (13.5-17.5); LYMPH # 1.1 10^3/uL (1.5-5.0); LYMPH % 15.2 % (24.0-44.0); MEAN CORPUSCULAR HGB CONC 33.6 g/dl (32.0-36.5); MEAN CORPUSCULAR VOLUME 92.5 fl (80.0-96.0); MONO # 0.4 10^3/uL (0.0-0.8); MONO % 5.9 % (2.0-8.0); NEUTROPHILS # 5.6 10^3/uL (1.5-8.5); NEUTROPHILS % 77.4 % (36.0-66.0); PLATELET COUNT, AUTOMATED 168 10^3/uL (150-450); RED BLOOD COUNT 4.93 10^6/uL (4.30-6.10); WHITE BLOOD COUNT 7.2 10^3/uL (4.0-10.0)
[2022-01-05 09:19] LABS: ALBUMIN 4.1 GM/DL (3.2-5.2); ALT/SGPT 17 U/L (12-78); BILIRUBIN,DIRECT 0.1 MG/DL (0.0-0.2); BILIRUBIN,TOTAL 0.5 MG/DL (0.2-1.0); BLOOD UREA NITROGEN 16 MG/DL (7-18); CALCIUM LEVEL 9.7 MG/DL (8.5-10.1); CARBON DIOXIDE LEVEL 25 MEQ/L (21-32); CHLORIDE LEVEL 106 MEQ/L (98-107); GLOMERULAR FILTRATION RATE > 60.0 (>56); GLUCOSE, FASTING 104 MG/DL (70-100); LIPASE 58 U/L (73-393); POTASSIUM SERUM 4.1 MEQ/L (3.5-5.1); SODIUM LEVEL 136 MEQ/L (136-145); TOTAL PROTEIN 8.3 GM/DL (6.4-8.2)
[2022-01-05 10:20] LABS: BACTERIA, URINE SMALL AMOUNT; HYALINE CAST, URINE 0-1 /lpf (0-1); MUCUS, URINE SMALL AMOUNT (NEGATIVE); SQUAMOUS EPITHELIAL CELL URINE SMALL AMOUNT /hpf (SMALL AMT)
[2022-01-05] MEDS ORDERED: NS 1,000 ML IV SCH (11:40)
[2022-01-05] MEDS ORDERED: HYDROMORPHONE HCL 0.5 MG/ 0.5 ML SYRINGE (J1170 PER 1) IV PRN (11:40)
[2022-01-05] MEDS ORDERED: ONDANSETRON 4MG 2ML VIAL IV ONE (11:40)
[2022-01-05] MEDS ORDERED: ISOVUE-370 76% 100ML VIAL As Ordered ONE (11:46)
[2022-01-05] MEDS ORDERED: LABETALOL 100MG/20ML VIAL IV STA (13:17)
[2022-01-05] MEDS ORDERED: oxyCODONE 5MG TAB PO ONE (13:35)
[2022-01-05 14:30] VITALS: BP 169/87
[2022-01-05] MEDS ORDERED: LISI20TA33 PO (15:50)
== END 2022-01-05 16:26 | disposition home or self-care (01) ==
LOC: M ED 07:12
DX: R10.9 Unspecified abdominal pain (principal); R82.81 Pyuria; K52.0 Gastroenteritis and colitis due to radiation; R31.9 Hematuria, unspecified; R93.5 Abnormal findings on diagnostic imaging of other abdominal regions, including retroperitoneum; I10 Essential (primary) hypertension; I25.2 Old myocardial infarction; K21.9 Gastro-esophageal reflux disease without esophagitis; K27.9 Peptic ulcer, site unspecified, unspecified as acute or chronic, without hemorrhage or perforation; R51.9 Headache, unspecified; F17.200 Nicotine dependence, unspecified, uncomplicated; Z98.84 Bariatric surgery status; Z79.811 Long term (current) use of aromatase inhibitors; Z79.899 Other long term (current) drug therapy
CPT/HCPCS: 70450; 71046; 74177; 76705; 80048; 80076; 81000; 83690; 85025; 93041; 96374; 96375; 99284; J1170; J2405; Q9967

== ENCOUNTER 2022-04-06 09:23 | Emergency (ER) | payer OTHER, MEDICARE ==
[~2022-04-06] VITALS: Ht 180.3 cm; Wt 100.0 kg
[2022-04-06] MEDS ORDERED: GABA-1171 PO (09:34)
[2022-04-06] MEDS ORDERED: LISI10TA22 PO (09:34)
[2022-04-06 10:21] LABS: BASO % 0.4 % (0.0-1.0); EOS % 0.3 % (0.0-3.0); HEMATOCRIT 42.8 % (42.0-52.0); HEMOGLOBIN 14.3 g/dl (13.5-17.5); LYMPH # 0.8 10^3/uL (1.5-5.0); LYMPH % 11.4 % (24.0-44.0); MEAN CORPUSCULAR HEMOGLOBIN 30.8 pg (27.0-33.0); MEAN CORPUSCULAR HGB CONC 33.4 g/dl (32.0-36.5); MONO # 0.4 10^3/uL (0.0-0.8); MONO % 5.5 % (2.0-8.0); NEUTROPHILS # 5.5 10^3/uL (1.5-8.5); NEUTROPHILS % 82.1 % (36.0-66.0); PLATELET COUNT, AUTOMATED 130 10^3/uL (150-450); RED BLOOD COUNT 4.65 10^6/uL (4.30-6.10); WHITE BLOOD COUNT 6.7 10^3/uL (4.0-10.0)
[2022-04-06] MEDS ORDERED: ISOVUE-370 76% 100ML VIAL As Ordered ONE (10:48)
[2022-04-06 11:53] LABS: ALBUMIN 3.5 GM/DL (3.2-5.2); ALT/SGPT 11 U/L (12-78); BILIRUBIN,DIRECT 0.3 MG/DL (0.0-0.2); BILIRUBIN,TOTAL 0.7 MG/DL (0.2-1.0); BLOOD UREA NITROGEN 14 MG/DL (7-18); CALCIUM LEVEL 8.9 MG/DL (8.5-10.1); CARBON DIOXIDE LEVEL 25 MEQ/L (21-32); CHLORIDE LEVEL 103 MEQ/L (98-107); GLOMERULAR FILTRATION RATE > 60.0 (>56); GLUCOSE, FASTING 96 MG/DL (70-100); NT-PRO BNP 209 PG/ML (<125); SODIUM LEVEL 133 MEQ/L (136-145); THYROID STIMULATING HORMONE 0.572 uIU/ML (0.358-3.740); THYROXINE (T4) 12.4 UG/DL (4.5-12.0); TOTAL PROTEIN 7.3 GM/DL (6.4-8.2)
[2022-04-06 11:54] LABS: CK-MB VALUE MASS 1.1 NG/ML (<3.6); MB/CK RELATIVE INDEX 2.08 (< OR =4)
[2022-04-06] MEDS ORDERED: oxyCODONE 5MG TAB PO ONE (12:10)
[2022-04-06 12:18] LABS: CK-MB VALUE MASS < 1.0 NG/ML (<3.6); CPK CREATINE PHOSPHOKINASE 55 U/L (39-308); MB/CK RELATIVE INDEX 1.82 (< OR =4)
[2022-04-06] MEDS ORDERED: FUROSEMIDE 40MG/4ML VIAL (J1940) IV ONE (12:50)
[2022-04-06] MEDS ORDERED: ONDANSETRON 4MG 2ML VIAL IV ONE (12:55)
[2022-04-06] MEDS ORDERED: LASI40TA9 PO (14:28)
[2022-04-06] MEDS ORDERED: LISI20TA33 PO (14:28)
[2022-04-06] MEDS ORDERED: SPIR-10 PO (14:29)
[2022-04-06] MEDS ORDERED: CHLO125TA PO (14:30)
[2022-04-06 14:33] VITALS: BP 174/89
== END 2022-04-06 15:09 | disposition home or self-care (01) ==
LOC: M ED 09:23
DX: I10 Essential (primary) hypertension (principal); I50.9 Heart failure, unspecified; R00.1 Bradycardia, unspecified; I44.4 Left anterior fascicular block; I25.2 Old myocardial infarction; K21.9 Gastro-esophageal reflux disease without esophagitis; F17.200 Nicotine dependence, unspecified, uncomplicated; Z86.79 Personal history of other diseases of the circulatory system; Z79.811 Long term (current) use of aromatase inhibitors; Z79.899 Other long term (current) drug therapy
CPT/HCPCS: 71045; 71275; 80047; 80048; 80076; 82550; 82553; 83605; 83880; 84436; 84443; 84484; 85025; 87040; 87486; 87581; 87633; 87798; 93005; 93041; 94760; 99285; J1940; J2405

== ENCOUNTER 2022-10-20 04:07 | Emergency (ER) | payer OTHER, MEDICARE ==
[~2022-10-20] VITALS: Ht 180.3 cm; Wt 91.8 kg
[~2022-10-20 04:07] MED LIST changes: +CHLO125TA PO; +GABA-1171 PO; -OXYC-405 PO; +OXYC40TA40 PO; +SPIR-10 PO
[2022-10-20 05:04] LABS: BASO # 0.1 10^3/uL (0.0-0.2); BASO % 0.9 % (0.0-1.0); EOS # 0.2 10^3/uL (0.0-0.5); EOS % 3.6 % (0.0-3.0); HEMATOCRIT 42.1 % (42.0-52.0); HEMOGLOBIN 14.1 g/dl (13.5-17.5); LYMPH # 1.8 10^3/uL (1.5-5.0); LYMPH % 31.3 % (24.0-44.0); MEAN CORPUSCULAR HEMOGLOBIN 30.7 pg (27.0-33.0); MEAN CORPUSCULAR HGB CONC 33.5 g/dl (32.0-36.5); MEAN CORPUSCULAR VOLUME 91.5 fl (80.0-96.0); MONO # 0.5 10^3/uL (0.0-0.8); MONO % 8.2 % (2.0-8.0); NEUTROPHILS # 3.1 10^3/uL (1.5-8.5); NEUTROPHILS % 55.6 % (36.0-66.0); PLATELET COUNT, AUTOMATED 168 10^3/uL (150-450); WHITE BLOOD COUNT 5.6 10^3/uL (4.0-10.0)
[2022-10-20 05:14] LABS: PROTHROMBIN TIME 13.4 SECONDS (12.5-14.5)
[2022-10-20 05:40] LABS: CK-MB VALUE MASS < 1.0 NG/ML (<3.6)
[2022-10-20 05:42] LABS: ALKALINE PHOSPHATASE 88 U/L (46-116); ALT/SGPT 9 U/L (7.0-40); AST/SGOT 15 U/L (<34); BILIRUBIN,DIRECT 0.4 MG/DL (<0.4); BILIRUBIN,TOTAL 1.1 MG/DL (0.3-1.2); BLOOD UREA NITROGEN 14 MG/DL (9-23); CALCIUM LEVEL 9.2 MG/DL (8.5-10.1); CARBON DIOXIDE LEVEL 26 MMOL/L (20-31); CHLORIDE LEVEL 102 MMOL/L (98-107); CREATININE FOR GFR 1.15 MG/DL (0.70-1.30); GLOMERULAR FILTRATION RATE > 60.0 (>56); GLUCOSE, FASTING 98 MG/DL (60-100); POTASSIUM SERUM 3.9 MMOL/L (3.5-5.1); SODIUM LEVEL 137 MMOL/L (136-145); TOTAL PROTEIN 7.7 G/DL (5.7-8.2)
[2022-10-20 05:46] LABS: CPK CREATINE PHOSPHOKINASE 51 U/L (46-171); MB/CK RELATIVE INDEX 1.96 (< OR =4)
[2022-10-20] MEDS ORDERED: SPIRONOLACTONE 25 MG TAB PO ONE (06:55)
[2022-10-20] MEDS ORDERED: oxyCODONE 5MG TAB PO ONE (06:55)
[2022-10-20] MEDS ORDERED: GABAPENTIN 100 MG CAP PO ONE ×2 (06:55→08:50)
[2022-10-20 07:05] VITALS: BP 196/112
[2022-10-20 07:08] LABS: CK-MB VALUE MASS < 1.0 NG/ML (<3.6)
[2022-10-20 07:15] LABS: CPK CREATINE PHOSPHOKINASE 52 U/L (46-171); MB/CK RELATIVE INDEX 1.92 (< OR =4)
[2022-10-20 07:29] LABS: D-DIMER QUANT > 4000 ng/ml (<500)
[2022-10-20] MEDS ORDERED: ISOVUE-370 76% 100ML VIAL As Ordered ONE (08:10)
[2022-10-20] MEDS ORDERED: GABA-1171 PO (08:27)
[2022-10-20] MEDS ORDERED: ACETAMINOPHEN 325 MG TAB PO ONE (08:50)
[2022-10-20 09:45] VITALS: BP 180/98
== END 2022-10-20 09:55 | disposition home or self-care (01) ==
LOC: M ED 04:07
DX: F41.1 Generalized anxiety disorder (principal); F41.0 Panic disorder [episodic paroxysmal anxiety]; R00.1 Bradycardia, unspecified; I44.4 Left anterior fascicular block; I25.2 Old myocardial infarction; I10 Essential (primary) hypertension; E78.5 Hyperlipidemia, unspecified; F17.200 Nicotine dependence, unspecified, uncomplicated; Z79.811 Long term (current) use of aromatase inhibitors; Z79.891 Long term (current) use of opiate analgesic; Z79.899 Other long term (current) drug therapy
CPT/HCPCS: 36415; 71045; 71275; 80048; 80076; 82550; 82553; 83605; 83880; 84484; 85025; 85379; 85610; 93005; 93041; 94760; 99285; Q9967

== ENCOUNTER → 2023-04-25 | Outpatient (CLI) | payer BC, MEDICARE ==
[~2023-04-25] MED LIST changes: +DICY-61 PO; -DICY10CA13 PO
== END ==
LOC: M RAD 14:17
PROVIDERS: ATTEND Family Medicine
DX: M54.12 Radiculopathy, cervical region (principal); M47.812 Spondylosis without myelopathy or radiculopathy, cervical region; M50.31 Other cervical disc degeneration, high cervical region; M50.321 Other cervical disc degeneration at C4-C5 level; M50.322 Other cervical disc degeneration at C5-C6 level; M50.323 Other cervical disc degeneration at C6-C7 level; M51.34 Other intervertebral disc degeneration, thoracic region

== ENCOUNTER → 2024-01-18 | Outpatient (CLI) | payer BC, MEDICARE ==
[~2024-01-18] MED LIST changes: +ONDA-282 PO; -ONDA4TAB6 PO; +VANC250C10 PO; -VANC250C3 PO
[2024-01-18 08:04] LABS: HEMATOCRIT 40.5 % (42.0-52.0); HEMOGLOBIN 13.7 g/dl (13.5-17.5); MEAN CORPUSCULAR HEMOGLOBIN 31.7 pg (27.0-33.0); MEAN CORPUSCULAR HGB CONC 33.8 g/dl (32.0-36.5); MEAN CORPUSCULAR VOLUME 93.8 fl (80.0-96.0); PLATELET COUNT, AUTOMATED 134 10^3/uL (150-450); RED BLOOD COUNT 4.32 10^6/uL (4.30-6.10)
[2024-01-18 08:32] LABS: IRON (FE) 60 UG/DL (65-175)
[2024-01-18 08:33] LABS: ALBUMIN 3.6 G/DL (3.2-5.2); ALKALINE PHOSPHATASE 78 U/L (46-116); ALT/SGPT < 9 U/L (7.0-40); AST/SGOT < 8 U/L (<34); BILIRUBIN,TOTAL 0.5 MG/DL (0.3-1.2); BLOOD UREA NITROGEN 16 MG/DL (9-23); CARBON DIOXIDE LEVEL 27 MMOL/L (20-31); CHLORIDE LEVEL 108 MMOL/L (98-107); CHOLESTEROL LEVEL 143 MG/DL (<200); CREATININE FOR GFR 1.13 MG/DL (0.70-1.30); GLOMERULAR FILTRATION RATE > 60.0 (>49); GLUCOSE, FASTING 130 MG/DL (74-106); HDL CHOLESTEROL 43.3 MG/DL (>40); LDL CHOLESTEROL 89.5 MG/DL (<100); MAGNESIUM LEVEL 1.8 MG/DL (1.8-2.4); NON-HDL-C 99.7 MG/DL; PERCENT SATURATION 21.3 % (19.7-50.0); POTASSIUM SERUM 3.7 MMOL/L (3.5-5.1); SODIUM LEVEL 138 MMOL/L (136-145); TOTAL IRON BINDING CAPACITY 282 UG/DL (250-425); TOTAL PROTEIN 7.3 G/DL (5.7-8.2); TRIGLYCERIDES LEVEL 51 MG/DL (<150)
[2024-01-18 08:34] LABS: FERRITIN 77.9 NG/ML (10.5-307.3); FOLATE 10.6 NG/ML (>5.4)
[2024-01-18 08:35] LABS: TOTAL 25(OH) VITAMIN D 43.9 NG/ML (20.0-100.0); VITAMIN B12 LEVEL 216 PG/ML (211-911)
== END ==
LOC: M LAB 07:43
PROVIDERS: ATTEND Family Medicine
DX: I10 Essential (primary) hypertension (principal); Z98.84 Bariatric surgery status; Z79.899 Other long term (current) drug therapy

== ENCOUNTER → 2024-07-31 | Outpatient (REF) | payer BC ==
[~2024-07-31] MED LIST changes: +VANC125C13 PO; -VANC125C3 PO; -VANC250C10 PO; +VANC250C12 PO
== END ==
LOC: M LAB REF 19:26
PROVIDERS: ATTEND Physician Assistant Medical
DX: B34.9 Viral infection, unspecified (principal)

== ENCOUNTER 2025-04-21 11:10 | Emergency (ER) | payer BC ==
[~2025-04-21] VITALS: Ht 170.2 cm; Wt 102.6 kg
[~2025-04-21 11:10] MED LIST changes: -FLOM0.4C39 PO; +MORP-137 PO; -MSIR30TA PO; -OXYC40TA40 PO; +OXYC40TA41 PO; +TAMS-18 PO
[2025-04-21 11:50] LABS: BASO # 0.0 10^3/uL (0.0-0.2); BASO % 0.6 % (0.0-1.0); EOS # 0.2 10^3/uL (0.0-0.5); EOS % 2.2 % (0.0-3.0); LYMPH # 1.9 10^3/uL (1.5-5.0); LYMPH % 27.1 % (24.0-44.0); MONO # 0.6 10^3/uL (0.0-0.8); MONO % 8.4 % (2.0-8.0); NEUTROPHILS # 4.4 10^3/uL (1.5-8.5); NEUTROPHILS % 61.4 % (36.0-66.0); PLATELET COUNT, AUTOMATED 192 10^3/uL (150-450)
[2025-04-21] MEDS ORDERED: ISOVUE-370 76% 100 ML VIAL As Ordered ONE (11:59)
[2025-04-21 12:29] LABS: ALT/SGPT 16 U/L (7.0-40); AST/SGOT 31 U/L (<34); CALCIUM LEVEL 9.1 MG/DL (8.3-10.6); CARBON DIOXIDE LEVEL 26 MMOL/L (20-31); CHLORIDE LEVEL 108 MMOL/L (98-107); CK-MB VALUE MASS < 1.0 NG/ML (<3.6); CPK CREATINE PHOSPHOKINASE 55 U/L (46-171); CREATININE FOR GFR 1.45 MG/DL (0.70-1.30); GLOMERULAR FILTRATION RATE 54.8 (>49); POTASSIUM SERUM 5.8 MMOL/L (3.5-5.1); SODIUM LEVEL 140 MMOL/L (136-145)
[2025-04-21] MEDS: MORPHINE 4 MG/ML 1 ML VIAL IV ONE (13:10)
[2025-04-21 13:20] VITALS: BP 181/106
[2025-04-21] MEDS: hydroCHLOROthiazide 25 MG TAB PO ONE (13:20)
[2025-04-21 13:26] LABS: CK-MB VALUE MASS < 1.0 NG/ML (<3.6)
[2025-04-21 13:28] LABS: CPK CREATINE PHOSPHOKINASE 35 U/L (46-171)
[2025-04-21 13:29] LABS: CK-MB VALUE MASS < 1.0 NG/ML (<3.6); CPK CREATINE PHOSPHOKINASE 33 U/L (46-171); POTASSIUM SERUM 4.5 MMOL/L (3.5-5.1)
[2025-04-21] MEDS ORDERED: AZIT-12 PO (14:02)
[2025-04-21 14:10] VITALS: BP 170/98; TEMP 98.2; O2SAT 97
== END 2025-04-21 14:32 | disposition home or self-care (01) ==
LOC: M ED 11:10
DX: R07.9 Chest pain, unspecified (principal); B34.8 Other viral infections of unspecified site; R00.1 Bradycardia, unspecified; N28.1 Cyst of kidney, acquired; I25.2 Old myocardial infarction; I10 Essential (primary) hypertension; E78.5 Hyperlipidemia, unspecified; F17.200 Nicotine dependence, unspecified, uncomplicated; Z79.2 Long term (current) use of antibiotics; Z79.899 Other long term (current) drug therapy; Z98.84 Bariatric surgery status
CPT/HCPCS: 71045; 71275; 80047; 80048; 80076; 82550; 82553; 83690; 84132; 84484; 85025; 87486; 87581; 87633; 87798; 93005; 93041; 96374; 99285; Q9967